=== PATIENT | female | born 1935 | race Caucasian/White ===

== ENCOUNTER → 2016-06-19 | Outpatient (CLI) | payer MEDICARE ==
[~2016-06-19] MED LIST: ACET325T96 PO; ASPI-461 PO; ATOR-26 PO; CARV12.52 PO; CEFD1CAP14 PO; CHOL1000 PO; CIPR-255 PO; COCO1OIL2 PO; CPR500 PO; CRAN1TAB PO; CRANBERRY PO; CRG25 PO; DOXY-300 PO; ERTA1INJ IV; FEBU40TA PO; FURO-85 PO; KFL500 PO; LORA-741 PO; LOTE1GEL OPB; MELA1TAB5 PO; METR-162 PO; MISCCAP80 PO; MRPL PO; MULT-614 PO; NYSP TOP; ONDA4TAB10 PO; PANT40TA2 PO; PLV75 PO; SODI650T8 PO; VANC5CAP PO; [UNRECOGNIZED DRUG - CODE] TOP
[2016-06-19 08:09] LABS: URINE APPEARANCE TURBID (CLEAR); URINE BILIRUBIN NEG (NEG); URINE COLOR YELLOW; URINE EPITHELIAL CELL AUTO >30 /lpf (0-5); URINE NITRITE NEG (NEG); URINE PH 6.5 (4.5-7.5); UROBILINOGEN NEG (NEG); ZZURINE CULT IF INDIC CATH YES
[2016-06-19 08:15] LABS: MANUAL MICROSCOPIC REQUIRED? NO; REVIEW REQ? YES
[2016-06-19 08:40] LABS: URINE PROTIEN/CREAT RATIO 1.3 (0-0.2); URINE TOTAL PROTEIN 88.3 mg/dl (0-11.9)
== END | disposition home or self-care (01) ==
LOC: C.LABSPEC 07:47
PROVIDERS: ATTEND Internal Medicine Nephrology
DX: N30.20 Other chronic cystitis without hematuria (principal); N18.4 Chronic kidney disease, stage 4 (severe); I10 Essential (primary) hypertension; R80.9 Proteinuria, unspecified; E55.9 Vitamin D deficiency, unspecified

== ENCOUNTER → 2016-06-27 | Outpatient (CLI) | payer MEDICARE ==
[~2016-06-27] MED LIST changes: -MRPL PO; -PANT40TA2 PO; +PRT/40 PO
[2016-06-27 15:02] LABS: BLOOD UREA NITROGEN 35 mg/dl (7-18); BUN/CREATININE RATIO 12.2 (10-20); CALCIUM 8.6 mg/dl (8.5-10.1); CARBON DIOXIDE 21 mmol/L (21-32); CHLORIDE 117 mmol/L (98-107); GLUCOSE 121 mg/dl (70-99); HEMATOCRIT 30.7 % (37-47); MEAN CELL VOLUME 98.4 fL (80-100); MEAN CORPUSCULAR HEMOGLOBIN 31.4 pg (25-34); MEAN CORPUSCULAR HGB CONC 31.9 g/dl (32-36); MEAN PLATELET VOLUME 9.4 fL (7.4-10.4); PHOSPHORUS 3.5 mg/dl (2.5-4.9); PLATELET COUNT 194 K/uL (130-400); RED BLOOD COUNT 3.12 M/uL (4.2-5.4); SODIUM 149 mmol/L (136-145); WHITE BLOOD COUNT 7.23 K/uL (4.8-10.8)
[2016-06-27 15:25] LABS: ANISOCYTOSIS PRESENT; BASO % 0.7 %; BASO ABS # 0.05 K/uL (0-0.2); COMPLETE YES; EOS % 2.8 %; IG% 5.5 %; LYMPH % 30.2 %; LYMPH ABS # 2.18 K/uL (1.2-3.4); MONO % 6.9 %; NEUT % 53.9 %
== END | disposition home or self-care (01) ==
LOC: C.LAB1850 13:33
PROVIDERS: ATTEND Internal Medicine Nephrology
DX: N17.9 Acute kidney failure, unspecified (principal)

== ENCOUNTER → 2016-07-11 | Outpatient (CLI) | payer MEDICARE, OTHER ==
[2016-07-11 18:33] LABS: URINE APPEARANCE TURBID (CLEAR); URINE COLOR ORANGE; URINE EPITHELIAL CELL AUTO >30 /lpf (0-5); URINE NITRITE POS (NEG); URINE SPECIFIC GRAVITY 1.007 (1.000-1.030); UROBILINOGEN NEG (NEG); ZZURINE CULT IF INDIC CATH YES
[2016-07-11 18:43] LABS: MANUAL MICROSCOPIC REQUIRED? NO; REVIEW REQ? YES; URINE BILIRUBIN NEG (NEG)
== END | disposition home or self-care (01) ==
LOC: C.LABSPEC 16:19
PROVIDERS: ATTEND Internal Medicine Infectious Disease
DX: N39.0 Urinary tract infection, site not specified (principal)

== ENCOUNTER 2016-07-13 11:26 | Inpatient (IN) | payer MEDICARE, OTHER ==
[~2016-07-13] VITALS: Ht 167.6 cm; Wt 70.5 kg
[~2016-07-13 11:26] MED LIST changes: -CARV12.52 PO; -CEFD1CAP14 PO; -CHOL1000 PO; -COCO1OIL2 PO; -CPR500 PO; -CRAN1TAB PO; -CRANBERRY PO; -ERTA1INJ IV; -FURO-85 PO; -METR-162 PO; -SODI650T8 PO
[2016-07-13 12:53] LABS: BASO % 0.2 %; BASO ABS # 0.01 K/uL (0-0.2); EOS % 1.6 %; HEMATOCRIT 27.7 % (37-47); IG% 1.3 %; LYMPH ABS # 1.34 K/uL (1.2-3.4); MEAN CELL VOLUME 98.2 fL (80-100); MEAN CORPUSCULAR HEMOGLOBIN 31.2 pg (25-34); MEAN CORPUSCULAR HGB CONC 31.8 g/dl (32-36); MEAN PLATELET VOLUME 9.8 fL (7.4-10.4); MONO % 9.4 %; NEUT % 66.5 %; PLATELET COUNT 152 K/uL (130-400); RED BLOOD COUNT 2.82 M/uL (4.2-5.4); WHITE BLOOD COUNT 6.37 K/uL (4.8-10.8)
[2016-07-13] MEDS ORDERED: ERTAPENEM 1 GM ADDVIAL IV ONE (13:00)
[2016-07-13] MEDS ORDERED: CHOL1000 PO (13:05)
[2016-07-13 13:18] LABS: ALKALINE PHOSPHATASE 90 U/L (45-117); ALT/SGPT 16 U/L (12-78); AST/SGOT 17 U/L (15-37); BLOOD UREA NITROGEN 80 mg/dl (7-18); BUN/CREATININE RATIO 13.3 (10-20); CALCIUM 7.9 mg/dl (8.5-10.1); CARBON DIOXIDE 14 mmol/L (21-32); CHLORIDE 115 mmol/L (98-107); GLUCOSE 99 mg/dl (70-99); SODIUM 144 mmol/L (136-145)
[2016-07-13] MEDS ORDERED: SODIUM CHLORIDE 0.9% 1000ML 1,000 ML IV STA (13:32)
[2016-07-13 13:33] LABS: COMPLETE YES
[2016-07-13] MEDS ORDERED: ONDANSETRON INJ 2 MG/ML 2 ML VIAL IV PRN (14:15)
[2016-07-13] MEDS ORDERED: MAGNESIUM HYDROXIDE SUSP 30 ML UDC PO PRN (14:15)
[2016-07-13] MEDS ORDERED: NON-FORMULARY MEDICATION (Probiotic Product (Probiotic) 1 TAB) PO SCH (14:15)
[2016-07-13] MEDS ORDERED: ACETAMINOPHEN 325 MG TAB PO SCH (14:15)
[2016-07-13] MEDS ORDERED: BISACODYL 5 MG TABEC PO PRN (14:15)
--- NOTE | 2016-07-13 14:48 | History and Physical ---
History & Physical Date & Time of Service: Jul 13, 2016 at 14:23 Chief Complaint: UTI Primary Care Physician: Jan Cervantes M.D. History of Present Illness Source: patient Patient is an 81 y/o female, with PMHx of recurrent UTI, CKD IV, HTN, CHF, CAD, and hyperlipidemia, who presented to the ED from referral by [facility] because of progressive bilateral leg weakness and UTI. Urine cultures on growing Klebsiella pneumoniae. Per patient, her only complaint is progressive weakness over the last few days. Patient was admitted late May for similar symptoms of UTI and progressive weakness. History is limited as no family present and patient "is tired of telling everyone the same thing. She is fine." Patient denies any fever, chills, sweats, lightheadedness, dizziness, vision changes, CP, palpitations, edema, SOB, wheezing, cough, abdominal pain, nausea, vomiting, diarrhea, urinary symptoms, melena, numbness/tingling, muscle/ joint pain, anxiety/depression, active bleeding, or new skin discoloration/ changes. Past Medical/Surgical History Medical Problems: 1. Recurrent UTI 2. CKD IV 3. HTN 4. CHF 5. CAD s/p PR in April 2012 6. Hyperlipidemia Surgical Problems: 1. Cholecystectomy Family History Other cardiovascular diseases Social History Smoking Status: Never Smoker Drug Use: none Marital Status: Housing status: lives with family, long term Occupational Status: retired Immunizations History of Influenza Vaccine: Yes Influenza Vaccine Date: Mar 17, 2010 History of Tetanus Vaccine?: No History of Pneumococcal: No Pneumococcal Date: Jun 06, 2011 History of Hepatitis B Vaccine: No Multi-Drug Resistant Organisms History of MDRO: No Allergies Coded Allergies: Amoxicillin (Verified Allergy, Unknown, UNKNOWN REACTION, 07/13/16) PER PCP RECORDS Clavulanic Acid (Verified Allergy, Unknown, UNKNOWN REACTION, 07/13/16) PER PCP RECORDS Penicillins (Verified Allergy, Unknown, UNKNOWN REACTION, 07/13/16) PER PCP RECORDS Sulfa Antibiotics (Verified Allergy, Unknown, BODY SWELLING,NAUSEA AND VOMITNG, 07/13/16) Home Medications Scheduled Aspirin (Aspirin), 81 MG PO QPM Atorvastatin (Lipitor), 80 MG PO QPM Carvedilol (Carvedilol), 25 MG PO BID Cholecalciferol (Vitamin D3), 1 TAB PO DAILY Clopidogrel Bisulfate (Clopidogrel), 75 MG PO QPM Febuxostat (Uloric), 40 MG PO NOON Loteprednol Etabonate (Lotemax), 1 DROP OPB QAM Multiple Vitamins W/ Minerals (Centrum Silver Ultra Wome), 1 TAB PO QAM Nystatin (Nystop), 1 DOSE TOP BID Pantoprazole (Pantoprazole Sodium), 40 MG PO QAM Probiotic Product (Probiotic), 1 TAB PO NOON Scheduled PRN Acetaminophen Tab (Tylenol), 650 MG PO Q4H PRN for Pain or Fever Ketoconazole (Bulk) (Ketoconazole), 1 DOSE TOP QAM PRN for affected area Lorazepam (Ativan), 0.5 MG PO Q6H PRN for Anxiety Ondasetron Odt (Zofran Odt), 4 MG PO Q6H PRN for Nausea Physical Exam Vital Signs Date Time Temp Pulse Resp B/P Pulse Ox O2 Delivery O2 Flow Rate FiO2 07/13/16 14:11 73 07/13/16 13:47 73 22 106/52 96 2.0 07/13/16 11:39 Nasal Cannula 2.0 07/13/16 11:32 72 07/13/16 11:32 36.8 72 20 114/54 98 Room Air 2.0 General Appearance: no apparent distress Head: normocephalic, atraumatic Eyes: normal inspection, PERRL ENT: hearing grossly normal Neck: supple Respiratory/Chest: lungs clear, no respiratory distress, no accessory muscle use Cardiovascular: regular rate, rhythm, normal peripheral pulses Abdomen/GI: normal bowel sounds, non tender, soft Extremities/Musculoskelatal: no calf tenderness, no pedal edema Neurologic/Psych: alert Skin: normal color, warm/dry, no rash Diagnostics Laboratory Results Results Past 24 Hours Test 07/13/16 11:06 Range/Units White Blood Count 6.37 4.8-10.8 K/uL Red Blood Count 2.82 4.2-5.4 M/uL Hemoglobin 8.8 12.0-16.0 g/dL Hematocrit 27.7 37-47 % Mean Corpuscular Volume 98.2 80-100 fL Mean Corpuscular Hemoglobin 31.2 25-34 pg Mean Corpuscular Hemoglobin Concent 31.8 32-36 g/dl Platelet Count 152 130-400 K/uL Mean Platelet Volume 9.8 7.4-10.4 fL Neutrophils (%) (Auto) 66.5 % Lymphocytes (%) (Auto) 21.0 % Monocytes (%) (Auto) 9.4 % Eosinophils (%) (Auto) 1.6 % Basophils (%) (Auto) 0.2 % Neutrophils # (Auto) 4.24 1.4-6.5 K/uL Lymphocytes # (Auto) 1.34 1.2-3.4 K/uL Monocytes # (Auto) 0.60 0.11-0.59 K/uL Eosinophils # (Auto) 0.10 0-0.5 K/uL Basophils # (Auto) 0.01 0-0.2 K/uL RDW Standard Deviation 59.0 36.4-46.3 fL RDW Coefficient of Variation 16.3 11.5-14.5 % Immature Granulocyte % (Auto) 1.3 % Immature Granulocyte # (Auto) 0.08 0.00-0.02 K/uL Red Blood Cell Morphology Unremarkable Sodium Level 144 136-145 mmol/L Potassium Level 5.0 3.5-5.1 mmol/L Chloride Level 115 98-107 mmol/L Carbon Dioxide Level 14 21-32 mmol/L Anion Gap 15.0 3-11 mmol/L Blood Urea Nitrogen 80 7-18 mg/dl Creatinine 6.00 0.60-1.20 mg/dl Est Creatinine Clear Calc Drug Dose 6.6 ml/min Estimated GFR () 6.9 Estimated GFR (Non- 6.0 BUN/Creatinine Ratio 13.3 10-20 Random Glucose 99 70-99 mg/dl Calcium Level 7.9 8.5-10.1 mg/dl Total Bilirubin 0.3 0.2-1 mg/dl Direct Bilirubin < 0.1 0-0.2 mg/dl Aspartate Amino Transf (AST/SGOT) 17 15-37 U/L Alanine Aminotransferase (ALT/SGPT) 16 12-78 U/L Alkaline Phosphatase 90 45-117 U/L Total Protein 6.5 6.4-8.2 gm/dl Albumin 2.3 3.4-5.0 gm/dl Lipase 149 73-393 U/L RUN DATE: 07/13/16 [facility] LAB PAGE 1 RUN TIME: 1030 Specimen Inquiry PATIENT: ELIEL MIR LOC: NICCIMERVAT U # : [id number] AGE/SX: 81/F ROOM: REG : 07/11/[address]: José Luis Griffin MD : [id number] BED: DIS : STATUS: PRE CLI TLOC: SPEC #: [id number] [place]: 07/11/16-1618 STATUS: COMP REQ #: [id number] RECD: 07/11/[address]: José Luis Griffin MD SOURCE: URINE CATH ENTR: 07/11/16-[address]: Jan Cervantes M.D. [facility]: ORDERED: CULTURE UR CATH Procedure Result Verified Site URINE CULTURE Final 07/13/16-1030 Organism 1 KLEBSIELLA PNEUMONIAE COLONY COUNT >100,000 CFU/ml SENS SENSITIVITY TO FOLLOW SENSITIVITY RESULT INDICATES AN ORGANISM WITH AN EXTENDED SPECTRUM BETA LACTAMASE.THIS IS CONSIDERED A MULTIDRUG RESISTANT ORGANISM.PHONED TO BRANDEN PUENTES AND LOW MARTELL() ON 07/13/16 AT 1004 BY Handy Shelton. Results were verbalized back to IRVIN. 1. KLEBSIELLA PNEUMONIAE Target Route Dose RX AB Cost M.I.C. IQ ------ ----- ------ -- ------ -------- - ------ TRIMET/SULFA R >2/38 AMPICILLIN/SUL R >16/8 CEFAZOLIN R >16 CEFOTAXIME R >32 CEFTRIAXONE R >32 CEFEPIME R >16 CEFUROXIME R >16 IMIPENEM S <=1 GENTAMICIN S <=4 TOBRAMYCIN I 8 AMIKACIN S <=16 CIPROFLOXACIN R >2 LEVOFLOXACIN R >4 ERTAPENEM S <=1 NITROFURANTOIN R >64 PIP/TAZO S <=16 S = SENSITIVE I = INTERMEDIATE R = RESISTANT END OF REPORT Impression Assessment and Plan 81 y/o female, with PMHx of recurrent UTI, CKD IV, HTN, CHF, CAD, and hyperlipidemia, who presented to the ED by referral from [facility] because of progressive bilateral leg weakness and UTI. UTI- klebsiella pneumoniae on urine culture 07/11: - Admit med/surg - IV Ertapenem - Consult infectious disease, appreciate recommendations. Patient follows with Dr. Griffin for recurrent UTIs - Follow CBC - Nam to monitor urine output BONNIE on CKD IV with Cr. of 6.00. Baseline ~2.5: - IV NSS @ 75 ml/hr - Consult nephrology, appreciate recommendations. Patient follows with Dr. Corral - Follow PRP CHF/HTN: - ECHO on 06/10/16 with EF of 35-40% - Continue Coreg 25 mg PO BID CAD: - Continue ASA 81 mg PO daily - Continue Plavix 75 mg PO QPM Anemia: - hgb 8.8. baseline around 9.5-10.0 - Continue to follow Hyperlipidemia: - Continue Lipitor 80 mg PO QAM Weakness: - Consult PT/OT GI Prophylaxis: - Pantoprazole 40 mg - Maalox PRN - IV Zofran PRN - Colace and/or Milk of Mag PRN DVT prophylaxis: - CODI and SCDs Code Status: - LEVEL I, FULL Dispo: - Lives at home. Has [facility] care Level of Care Med/Surg Resuscitation Status FULL RESUSCITATION VTE Prophylaxis VTE Risk Assessment Done? Y/N: Yes Risk Level: Moderate Given or contraindicated: T.E.D. Stockings, SCD's
--- NOTE | 2016-07-13 15:34 | EMERGENCY ROOM VISIT NOTE ---
History Report prepared by Harrison: Sj Carrero Under the Supervision of: Dr. Laisha Wren M.D. First contact with patient: 12:21 Chief Complaint: REFERRED BY DOCTOR Stated Complaint: UTI History of Present Illness The patient is an 81 year old female who presents to the Emergency Room as an acute referral from [facility] for a urinary tract infection. As per her , the patient has been becoming progressively weaker in the legs to the point that she cannot stand up, which is a typical UTI symptom for her. The patient has also been eating less and sleeping more than baseline. The patient' s gave her Cipro that was leftover from a previous UTI. The Cipro did not help. The patient's urine cultures obtained two days ago showed growth, which prompted the referral to the ED. The patient's last bowel movement was yesterday. The patient does not have any complaints. Patient denies headache, change in vision, fevers, chest pain, shortness of breath, nausea, vomiting, diarrhea, pain with urination, and melena. Source of History: patient, spouse/significant other Onset: two days ago Position: other (general) Quality: other (ED referral ) Timing: other (acute) Associated Symptoms: + weakness, No SOB, No chest pain, No diarrhea, No fevers, No headache, No melena, No nausea, No urinary symptoms, No vomiting Review of Systems See HPI for pertinent positives & negatives. A total of 10 systems reviewed and were otherwise negative. Past Medical & Surgical Medical Problems: (1) Acute hypernatremia (2) Acute kidney injury (3) Acute on chronic renal failure (4) Acute renal failure superimposed on stage 4 chronic kidney disease (5) Acute urinary tract infection (6) Anemia (7) Benign hypertension (8) Cardiac catheterization (9) CHF (congestive heart failure) (10) CHF (congestive heart failure) (11) Cholecystectomy (12) Chronic kidney disease (13) Coronary artery disease (14) Diabetes (15) Ischemic cardiomyopathy (16) Metabolic acidosis (17) Metabolic acidosis with increased anion gap and reduced excretion of inorganic acids (18) Myocardial infarction (19) Pneumonia (20) 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 (21) Recurrent UTI (22) Secondary hyperparathyroidism of renal origin (23) Sepsis (24) Sepsis due to Klebsiella (25) sepsis recurrent UTI BONNIE on ckd (26) Systolic CHF (27) UTI (urinary tract infection) (28) UTI (urinary tract infection) (29) UTI (urinary tract infection) (30) Weakness Surgical Problems: (1) History of cholecystectomy Family History Other cardiovascular diseases Social History Smoking Status: Never Smoker Alcohol Use: none Drug Use: none Marital Status: Housing Status: lives with significant other Occupation Status: retired Current/Historical Medications Scheduled Aspirin (Aspirin), 81 MG PO QPM Atorvastatin (Lipitor), 80 MG PO QPM Carvedilol (Carvedilol), 25 MG PO BID Cholecalciferol (Vitamin D3), 1 TAB PO DAILY Clopidogrel Bisulfate (Clopidogrel), 75 MG PO QPM Febuxostat (Uloric), 40 MG PO NOON Loteprednol Etabonate (Lotemax), 1 DROP OPB QAM Multiple Vitamins W/ Minerals (Centrum Silver Ultra Wome), 1 TAB PO QAM Nystatin (Nystop), 1 DOSE TOP BID Pantoprazole (Pantoprazole Sodium), 40 MG PO QAM Probiotic Product (Probiotic), 1 TAB PO NOON Scheduled PRN Acetaminophen Tab (Tylenol), 650 MG PO Q4H PRN for Pain or Fever Ketoconazole (Bulk) (Ketoconazole), 1 DOSE TOP QAM PRN for affected area Lorazepam (Ativan), 0.5 MG PO Q6H PRN for Anxiety Ondasetron Odt (Zofran Odt), 4 MG PO Q6H PRN for Nausea Allergies Coded Allergies: Amoxicillin (Verified Allergy, Unknown, UNKNOWN REACTION, 07/13/16) PER PCP RECORDS Clavulanic Acid (Verified Allergy, Unknown, UNKNOWN REACTION, 07/13/16) PER PCP RECORDS Penicillins (Verified Allergy, Unknown, UNKNOWN REACTION, 07/13/16) PER PCP RECORDS Sulfa Antibiotics (Verified Allergy, Unknown, BODY SWELLING,NAUSEA AND VOMITNG, 07/13/16) Physical Exam Vital Signs Date Time Temp Pulse Resp B/P Pulse Ox O2 Delivery O2 Flow Rate FiO2 07/13/16 14:11 73 07/13/16 13:47 73 22 106/52 96 2.0 07/13/16 11:39 Nasal Cannula 2.0 07/13/16 11:32 72 07/13/16 11:32 36.8 72 20 114/54 98 Room Air 2.0 Physical Exam GENERAL: Laying in bed, ill appearing, disheveled. EYE EXAM: normal conjunctiva. OROPHARYNX: no exudate, no erythema, lips, buccal mucosa, and tongue normal and mucous membranes are moist NECK: supple, no nuchal rigidity, no adenopathy, non-tender LUNGS: Clear to auscultation. Normal chest wall mechanics HEART: no murmurs, S1 normal and S2 normal ABDOMEN: abdomen soft, mild tenderness, normo-active bowel sounds, no masses, no rebound or guarding. BACK: Back is symmetrical on inspection and there is no deformity, no midline tenderness, no CVA tenderness. SKIN: no rashes and no bruising UPPER EXTREMITIES: upper extremities are grossly normal. LOWER EXTREMITIES: No pitting edema. NEURO EXAM: Normal sensorium, cranial nerves II-XII grossly intact, normal speech, no gross weakness of arms, no gross weakness of legs. Gross sensation intact. Medical Decision & Procedures Laboratory Results 07/13/16 11:06 Red Blood Count 2.82, Mean Corpuscular Volume 98.2, Mean Corpuscular Hemoglobin 31.2, Mean Corpuscular Hemoglobin Concent 31.8, Mean Platelet Volume 9.8, Neutrophils (%) (Auto) 66.5, Lymphocytes (%) (Auto) 21.0, Monocytes (%) (Auto) 9.4, Eosinophils (%) (Auto) 1.6, Basophils (%) (Auto) 0.2, Neutrophils # (Auto) 4.24, Lymphocytes # (Auto) 1.34, Monocytes # (Auto) 0.60, Eosinophils # (Auto) 0.10, Basophils # (Auto) 0.01 07/13/16 11:06 Test 07/13/16 11:06 White Blood Count 6.37 K/uL (4.8-10.8) Red Blood Count 2.82 M/uL (4.2-5.4) Hemoglobin 8.8 g/dL (12.0-16.0) Hematocrit 27.7 % (37-47) Mean Corpuscular Volume 98.2 fL (80-100) Mean Corpuscular Hemoglobin 31.2 pg (25-34) Mean Corpuscular Hemoglobin Concent 31.8 g/dl (32-36) Platelet Count 152 K/uL (130-400) Mean Platelet Volume 9.8 fL (7.4-10.4) Neutrophils (%) (Auto) 66.5 % Lymphocytes (%) (Auto) 21.0 % Monocytes (%) (Auto) 9.4 % Eosinophils (%) (Auto) 1.6 % Basophils (%) (Auto) 0.2 % Neutrophils # (Auto) 4.24 K/uL (1.4-6.5) Lymphocytes # (Auto) 1.34 K/uL (1.2-3.4) Monocytes # (Auto) 0.60 K/uL (0.11-0.59) Eosinophils # (Auto) 0.10 K/uL (0-0.5) Basophils # (Auto) 0.01 K/uL (0-0.2) RDW Standard Deviation 59.0 fL (36.4-46.3) RDW Coefficient of Variation 16.3 % (11.5-14.5) Immature Granulocyte % (Auto) 1.3 % Immature Granulocyte # (Auto) 0.08 K/uL (0.00-0.02) Red Blood Cell Morphology Unremarkable Anion Gap 15.0 mmol/L (3-11) Est Creatinine Clear Calc Drug Dose 6.6 ml/min Estimated GFR () 6.9 Estimated GFR (Non- 6.0 BUN/Creatinine Ratio 13.3 (10-20) Calcium Level 7.9 mg/dl (8.5-10.1) Total Bilirubin 0.3 mg/dl (0.2-1) Direct Bilirubin < 0.1 mg/dl (0-0.2) Aspartate Amino Transf (AST/SGOT) 17 U/L (15-37) Alanine Aminotransferase (ALT/SGPT) 16 U/L (12-78) Alkaline Phosphatase 90 U/L (45-117) Total Protein 6.5 gm/dl (6.4-8.2) Albumin 2.3 gm/dl (3.4-5.0) Lipase 149 U/L (73-393) Laboratory results per my review. Medications Administered Medications (Trade) Dose Ordered Sig/Helder Route Start Time Stop Time Status Last Admin Dose Admin Ertapenem 1 gm 1 gm ONE ONCE IV 07/13/16 13:00 07/13/16 13:02 DC 07/13/16 13:33 1 GM Sodium Chloride (Nss 1000ml) 1,000 ml @ 999 mls/hr Q1H1M STAT IV 07/13/16 13:32 07/13/16 14:32 DC 07/13/16 14:42 999 MLS/HR ED Course ED COURSE: Vital signs were reviewed and were normal. The patients medical record was reviewed The above diagnostic studies were performed and reviewed. ED treatments and interventions as stated above. 1243: The patient was evaluated in room C4. A complete history and physical examination was performed. 1300: Invanz 1 gm IV. 1332: NSS 1000 ml @ 999 mls/hr. 1332: [facility] The patient will be evaluated. 1335: Upon reevaluation, the patient is stable.I discussed my findings with the patient's and he understands and agrees with the treatment plan. Based on the patients age, coexisting illnesses, exam and lab findings the decision to treat as an inpatient was made. The patient remained stable while under my care. The patient will be evaluated for further management. Medical Decision Differential Diagnosis includes but is not limited to dehydration, stroke, anemia, hypoglycemia, hyponatremia, hypernatremia, urinary tract infection, pneumonia, bronchitis, sepsis, gastroenteritis, additional abdominal pathology, metabolic abnormalities and infections. Patient is an 81-year-old female who presents in the ER for weakness. She was referred in by her primary care doctor following being found to have a Klebsiella UTI. notes that he noticed hematuria 2 days back on which to get a urine culture. Patient is no other complaints at this time. She has been eating and taking less per the . Labs were obtained and show an elevated creatinine at 6 with a normal potassium. Previous creatinines were round 3. Upon review of the urine culture she was given ertapenem as it is pain resistant. Patient family were updated at bedside. She was given a bolus normal saline. She was admitted to internal medicine with a UTI and acute kidney injury. The anemia does appear to be chronic. Consults Time Called: 1325 Consulting Physician: [facility] Returned Call: [phone]: [facility] the [facility] The patient will be evaluated. Impression Primary Impression: Acute kidney injury Additional Impressions: UTI (urinary tract infection) Anemia Scribe Attestation The scribe's documentation has been prepared under my direction and personally reviewed by me in its entirety. I confirm that the note above accurately reflects all work, treatment, procedures, and medical decision making performed by me. Departure Information Dispostion Being Evaluated By Hospitalist Referrals Jan Cervantes M.D. (PCP) Patient Instructions [facility] Problem Qualifiers Additional Impressions: UTI (urinary tract infection) Urinary tract infection type: acute cystitis Hematuria presence: with hematuria Qualified Codes: N30.01 - Acute cystitis with hematuria Anemia Anemia type: other cause Other causes of anemia: other cause, not classified Qualified Codes: D64.89 - Other specified anemias
[2016-07-13 15:50] VITALS: O2SAT 98; Ht 167.6 cm; Wt 70.5 kg
[2016-07-13 16:00] LABS: URINE APPEARANCE TURBID (CLEAR); URINE COLOR ORANGE; URINE EPITHELIAL CELL AUTO >30 /lpf (0-5); URINE NITRITE POS (NEG); URINE PH 5.5 (4.5-7.5); URINE SPECIFIC GRAVITY 1.009 (1.000-1.030); UROBILINOGEN NEG (NEG); ZZURINE CULT IF INDIC CATH YES
[2016-07-13 16:13] LABS: MANUAL MICROSCOPIC REQUIRED? NO; REVIEW REQ? YES
[2016-07-13 16:14] LABS: URINE BILIRUBIN NEG (NEG)
[2016-07-13 16:24] VITALS: BP 114/68; PULSE 83; TEMP 36.9; O2SAT 100
[2016-07-13] MEDS ORDERED: INVANZ PHARMACY CONSULT IN PROGRESS PRN (16:30)
[2016-07-13] MEDS: SODIUM CHLORIDE 0.9% 1000ML 1,000 ML IV SCH (16:52)
--- NOTE | 2016-07-13 17:49 | Medical Consult ---
Consultation Date of Consultation: Jul 13, 2016. Attending Physician: Oniel Naik M.D. Reason for Consultation: Urinary tract infection with Klebsiella History of Present Illness 81-year-old female well known to me from previous infectious disease consultations and outpatient follow-up, with history of multiple recurrent urinary tract infections, usually associated with encephalopathy, often requiring hospitalization and IV antibiotics. Over the last several days, patient developed symptoms of recurrent infection with increasing lethargy and less responsiveness, and was found to have positive urine culture for Klebsiella. Because of difficulty with outpatient therapy, patient being admitted for further management. There has been no report of significant fever. Slight odor in discoloration of urine. Also of note is patient has history of recurrent C difficile colitis, and is on chronic suppressive therapy with vancomycin. Past Medical/Surgical History Medical Problems: (1) Acute on chronic kidney failure Status: Acute (2) Acute renal failure Status: Acute (3) Altered mental status Status: Acute (4) ARF (acute renal failure) Status: Acute (5) CRD (chronic renal disease) Status: Acute (6) Dehydration Status: Acute (7) Dehydration Status: Acute (8) Fever Status: Acute (9) Hyperkalemia Status: Acute (10) PICC (peripherally inserted central catheter) in place Status: Acute (11) Pneumonia Status: Acute (12) Renal failure Status: Acute (13) Renal insufficiency Status: Acute (14) Renal insufficiency Status: Acute (15) Sepsis Status: Acute (16) Sepsis Status: Acute (17) Uremia Status: Acute (18) UTI (urinary tract infection) Status: Acute (19) UTI (urinary tract infection) Status: Acute (20) UTI (urinary tract infection) Status: Acute (21) Weakness Status: Acute (22) Weakness Status: Acute (23) Weakness Status: Acute (24) Weakness Status: Acute (25) Weakness Status: Acute Medical Problems: (1) Acute hypernatremia (2) Acute kidney injury (3) Acute on chronic renal failure (4) Acute renal failure superimposed on stage 4 chronic kidney disease (5) Acute urinary tract infection (6) Anemia (7) Benign hypertension (8) Cardiac catheterization (9) CHF (congestive heart failure) (10) CHF (congestive heart failure) (11) Cholecystectomy (12) Chronic kidney disease (13) Coronary artery disease (14) Diabetes (15) Ischemic cardiomyopathy (16) Metabolic acidosis (17) Metabolic acidosis with increased anion gap and reduced excretion of inorganic acids (18) Myocardial infarction (19) Pneumonia (20) 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 (21) Recurrent UTI (22) Secondary hyperparathyroidism of renal origin (23) Sepsis (24) Sepsis due to Klebsiella (25) sepsis recurrent UTI BONNIE on ckd (26) Systolic CHF (27) UTI (urinary tract infection) (28) UTI (urinary tract infection) (29) UTI (urinary tract infection) (30) Weakness Surgical Problems: (1) History of cholecystectomy Family History Other cardiovascular diseases Social History Smoking Status: Never Smoker Drug Use: none Marital Status: Housing Status: lives with significant other Occupation Status: retired Allergies Coded Allergies: Amoxicillin (Verified Allergy, Unknown, UNKNOWN REACTION, 07/13/16) PER PCP RECORDS Clavulanic Acid (Verified Allergy, Unknown, UNKNOWN REACTION, 07/13/16) PER PCP RECORDS Penicillins (Verified Allergy, Unknown, UNKNOWN REACTION, 07/13/16) PER PCP RECORDS Sulfa Antibiotics (Verified Allergy, Unknown, BODY SWELLING,NAUSEA AND VOMITNG, 07/13/16) Current Inpatient Medications Current Inpatient Medications Medications (Trade) Dose Ordered Sig/Helder Route Start Time Stop Time Status Last Admin Dose Admin Aspirin (Ecotrin Tab) 81 mg QPM PO 07/13/16 21:00 08/12/16 20:59 Atorvastatin Calcium (Lipitor Tab) 80 mg QPM PO 07/13/16 21:00 08/12/16 20:59 Carvedilol (Coreg Tab) 25 mg BID PO 07/13/16 20:00 08/12/16 20:59 Cholecalciferol (Vitamin D Tab) 1,000 inter.unit DAILY PO 07/14/16 08:00 08/13/16 08:59 Clopidogrel Bisulfate (plAVix TAB) 75 mg QPM PO 07/13/16 21:00 08/12/16 20:59 Lorazepam (Ativan Tab) 0.5 mg Q6H PRN PO 07/13/16 14:15 08/12/16 14:14 Multivitamins/ Minerals (Multivitamin W/ Minerals Tab) 1 tab QAM PO 07/14/16 08:00 08/13/16 08:59 Nystatin (Mycostatin Powder) 1 appln BID EXT 07/13/16 20:00 2/26/17 20:59 Ondansetron HCl (Zofran Odt) 4 mg Q6H PRN PO 07/13/16 14:15 08/12/16 14:14 Pantoprazole Sodium (Protonix Tab) 40 mg QAM PO 07/14/16 08:00 08/13/16 08:59 Febuxostat (Uloric) 40 mg DAILY@1200 PO 07/14/16 12:00 08/13/16 11:59 Miscellaneous Information 1 ea 1 ea QS N/A 07/14/16 08:00 08/13/16 07:59 Ertapenem 500 mg/ Sodium Chloride 55 ml @ 110 mls/hr DAILY@1400 IV 07/14/16 14:00 07/23/16 13:59 Sodium Chloride (Nss 1000ml) 1,000 ml @ 75 mls/hr [id number] IV 07/13/16 14:15 08/12/16 14:14 07/13/16 16:52 75 MLS/HR Ondansetron HCl (Zofran Inj) 4 mg Q6H PRN IV 07/13/16 14:15 08/12/16 14:14 Magnesium Hydroxide (Milk Of Magnesia Susp) 30 ml Q6H PRN PO 07/13/16 14:15 08/12/16 14:14 Bisacodyl (Dulcolax Tab) 5 mg DAILY PRN PO 07/13/16 14:15 08/12/16 14:14 Acetaminophen (Tylenol Tab) 650 mg Q4H PRN PO 07/13/16 18:15 08/12/16 18:14 Miscellaneous Information 1 ea UD PRN N/A 07/13/16 16:30 08/12/16 16:29 Loteprednol Etabonate (Lotemax 0.5%) 1 drops QAM OPB 07/14/16 08:00 08/13/16 07:59 Review of Systems Constitutional: + fatigue, + weakness, No fever Eyes: No problem reported ENT: No problem reported Respiratory: No problem reported Cardiovascular: No problem reported Abdomen: No problem reported Musculoskeletal: No problem reported Genitourinary - Female: + dysuria, + urinary frequency, + urinary incontinence Neurologic: + weakness Psychiatric: No problem reported Endocrine: No problem reported Hematologic / Lymphatic: No problem reported Integumentary: No problem reported Allergic / Immunologic: No problem reported Physical Exam Date Time Temp Pulse Resp B/P Pulse Ox O2 Delivery O2 Flow Rate FiO2 07/13/16 16:24 36.9 83 20 114/68 100 Nasal Cannula 2.0 07/13/16 15:50 98 Nasal Cannula 2.0 07/13/16 15:38 85 16 128/63 98 07/13/16 14:11 73 07/13/16 13:47 73 22 106/52 96 2.0 07/13/16 11:39 Nasal Cannula 2.0 07/13/16 11:32 72 07/13/16 11:32 36.8 72 20 114/54 98 Room Air 2.0 General Appearance: WD/WN, no apparent distress Head: normocephalic, atraumatic Eyes: normal inspection, EOMI, sclerae normal ENT: normal ENT inspection, pharynx normal Neck: supple, no adenopathy, thyroid normal, trachea midline Respiratory/Chest: chest non-tender, lungs clear, normal breath sounds, no respiratory distress Cardiovascular: regular rate, rhythm, no gallop, no murmur Abdomen/GI: normal bowel sounds, non tender, soft, no organomegaly Back: normal inspection, no CVA tenderness Extremities/Musculoskelatal: no calf tenderness, pelvis stable Neurologic/Psych: alert, oriented x 3 Skin: normal color, warm/dry, no rash Lymphatic: no adenopathy Laboratory Results RUN DATE: 07/13/16 [facility] LAB PAGE 1 RUN TIME: 1030 Specimen Inquiry PATIENT: ELIEL MIR LOC: [facility] U # : [id number] AGE/SX: 81/F ROOM: REG : 07/11/[address]: José Luis Griffin MD : [id number] BED: DIS : STATUS: PRE CLI TLOC: SPEC #: [id number] [place]: 07/11/16 STATUS: COMP REQ #: [id number] RECD: 07/11/[address]: José Luis Griffin MD SOURCE: URINE CATH ENTR: 07/11/16 [facility] DR: Jan Cervantes M.D. [facility] ORDERED: CULTURE UR CATH Procedure Result Verified Site URINE CULTURE Final 07/13/16-1030 Organism 1 KLEBSIELLA PNEUMONIAE COLONY COUNT >100,000 CFU/ml SENS SENSITIVITY TO FOLLOW SENSITIVITY RESULT INDICATES AN ORGANISM WITH AN EXTENDED SPECTRUM BETA LACTAMASE.THIS IS CONSIDERED A MULTIDRUG RESISTANT ORGANISM.PHONED TO BRANDEN PUENTES AND LOW MARTELL() ON 07/13/16 AT 1004 BY Handy Shelton. Results were verbalized back to IRVIN. 1. KLEBSIELLA PNEUMONIAE Target Route Dose RX AB Cost M.I.C. IQ ------ ----- ------ -- ------ -------- - ------ TRIMET/SULFA R >2/38 AMPICILLIN/SUL R >16/8 CEFAZOLIN R >16 CEFOTAXIME R >32 CEFTRIAXONE R >32 CEFEPIME R >16 CEFUROXIME R >16 IMIPENEM S <=1 GENTAMICIN S <=4 TOBRAMYCIN I 8 AMIKACIN S <=16 CIPROFLOXACIN R >2 LEVOFLOXACIN R >4 ERTAPENEM S <=1 NITROFURANTOIN R >64 PIP/TAZO S <=16 S = SENSITIVE I = INTERMEDIATE R = RESISTANT END OF REPORT Last 24 Hours Test 07/13/16 11:06 07/13/16 15:35 White Blood Count 6.37 K/uL Red Blood Count 2.82 M/uL Hemoglobin 8.8 g/dL Hematocrit 27.7 % Mean Corpuscular Volume 98.2 fL Mean Corpuscular Hemoglobin 31.2 pg Mean Corpuscular Hemoglobin Concent 31.8 g/dl Platelet Count 152 K/uL Mean Platelet Volume 9.8 fL Neutrophils (%) (Auto) 66.5 % Lymphocytes (%) (Auto) 21.0 % Monocytes (%) (Auto) 9.4 % Eosinophils (%) (Auto) 1.6 % Basophils (%) (Auto) 0.2 % Neutrophils # (Auto) 4.24 K/uL Lymphocytes # (Auto) 1.34 K/uL Monocytes # (Auto) 0.60 K/uL Eosinophils # (Auto) 0.10 K/uL Basophils # (Auto) 0.01 K/uL RDW Standard Deviation 59.0 fL RDW Coefficient of Variation 16.3 % Immature Granulocyte % (Auto) 1.3 % Immature Granulocyte # (Auto) 0.08 K/uL Red Blood Cell Morphology Unremarkable Sodium Level 144 mmol/L Potassium Level 5.0 mmol/L Chloride Level 115 mmol/L Carbon Dioxide Level 14 mmol/L Anion Gap 15.0 mmol/L Blood Urea Nitrogen 80 mg/dl Creatinine 6.00 mg/dl Est Creatinine Clear Calc Drug Dose 6.6 ml/min Estimated GFR () 6.9 Estimated GFR (Non- 6.0 BUN/Creatinine Ratio 13.3 Random Glucose 99 mg/dl Calcium Level 7.9 mg/dl Total Bilirubin 0.3 mg/dl Direct Bilirubin < 0.1 mg/dl Aspartate Amino Transf (AST/SGOT) 17 U/L Alanine Aminotransferase (ALT/SGPT) 16 U/L Alkaline Phosphatase 90 U/L Total Protein 6.5 gm/dl Albumin 2.3 gm/dl Lipase 149 U/L Urine Color ORANGE Urine Appearance TURBID Urine pH 5.5 Urine Specific [place] 1.009 Urine Protein 3+ Urine Glucose (UA) NEG Urine Ketones NEG Urine Occult Blood 3+ Urine Nitrite POS Urine Bilirubin NEG Urine Urobilinogen NEG Urine Leukocyte Esterase LARGE Urine WBC (Auto) >30 /hpf Urine RBC (Auto) >30 /hpf Urine Hyaline Casts (Auto) 0 /lpf Urine Epithelial Cells (Auto) >30 /lpf Urine Bacteria (Auto) NEG Urine Pathogenic Casts /lpf Urine Yeast (Auto) Assessment & Plan patient with acute urinary tract infection with Klebsiella with acute kidney injury as well as mental status changes, agree with treatment with ertapenem, with likely course in the range of 7-10 days. Will follow clinical response, would obtain blood cultures to ensure no bacteremia. Will follow.
[2016-07-13] MEDS ORDERED: ACETAMINOPHEN 325 MG TAB PO PRN (18:15)
[2016-07-13] MEDS: NYSTATIN POWDER 15GM BTL EXT SCH (22:00)
[2016-07-13] MEDS: CARVEDILOL 25 MG TAB PO SCH (22:00)
[2016-07-13] MEDS: ASPIRIN 81 MG ECTAB PO SCH (22:01)
[2016-07-13] MEDS: CLOPIDOGREL BISULFATE 75 MG TAB PO SCH (22:01)
[2016-07-13] MEDS: ATORVASTATIN 40 MG TAB PO SCH (22:01)
[2016-07-13 22:07] VITALS: BP 123/56; PULSE 91
[2016-07-14] VITALS (7 sets, daily range): BP systolic 100–120; BP diastolic 47–55; PULSE 72–88; TEMP 36.4–37; O2SAT 97–100
[2016-07-14] MEDS: SODIUM CHLORIDE 0.9% 1000ML 1,000 ML IV SCH (03:43)
[2016-07-14 08:14] LABS: MEAN CELL VOLUME 98.9 fL (80-100); MEAN CORPUSCULAR HEMOGLOBIN 31.2 pg (25-34); MEAN CORPUSCULAR HGB CONC 31.5 g/dl (32-36); MEAN PLATELET VOLUME 9.3 fL (7.4-10.4); PLATELET COUNT 137 K/uL (130-400); RED BLOOD COUNT 2.63 M/uL (4.2-5.4); WHITE BLOOD COUNT 6.14 K/uL (4.8-10.8)
[2016-07-14] MEDS: NYSTATIN POWDER 15GM BTL EXT SCH ×2 (08:43→21:23)
[2016-07-14] MEDS: CARVEDILOL 25 MG TAB PO SCH ×2 (08:44→21:23)
[2016-07-14] MEDS: PANTOprazole SOD 40 MG TAB PO SCH (08:44)
[2016-07-14] MEDS: CHOLECALCIFEROL 1000 INTER.UNIT TAB PO SCH (08:46)
[2016-07-14] MEDS: CEROVITE ADV FORMULA TAB PO SCH (08:46)
[2016-07-14] MEDS: LOTEPREDNOL ETABONATE 0.5% OPB SCH (08:47)
[2016-07-14 08:56] LABS: BUN/CREATININE RATIO 13.4 (10-20); CALCIUM 7.6 mg/dl (8.5-10.1); CREATININE 5.5 mg/dl (0.60-1.20)
--- NOTE | 2016-07-14 12:12 | Nephrology Consultation ---
Nephrology Consultation Date & Providers Date of Consultation: Jul 14, 2016. Primary Care Provider: Jan Cervantes M.D. Referring Provider: Reason for Consultation Evaluation of acute on chronic kidney injury, dehydration, recurrent UTI History of Present Illness Mrs. Chase is an 81-year-old white female who is seen at the request of Dr. Dugan for evaluation of acute on chronic kidney injury and dehydration. Patient was seen & evaluated in her hospital room this morning. Medical records in the hospital EMR were reviewed this morning and are summarized as follows: 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 She has an AICD in place. She has CKD stage V (end stage renal disease) w/ baseline creatinine 3.0 (EGFR 13 cc/min). Mrs. Chase has urinary and fecal incontinence. She wears Tranquility briefs. She suffers from interstitial cystitis and recurrent UTI. This has resulted in need for chronic antibiotic therapy which has been complicated by clostridium difficile colitis and recurrent diarrhea. In 07/02 the patient underwent cystoscopy. Mrs. Chase was found to have severe bladder inflammation resulting in bilateral ureteral obstruction and BONNIE. She subsequently underwent bilateral ureteral stent placement. She has been having these changed out on a regular basis by urology. She is scheduled for her next ureteral stent change 08/03. We have discussed patient's advanced renal impairment. She does not wish to pursue dialysis. She desires only conservative medical management. Yesterday the patient was anorectic. She became progressively weak. Her had to lift her out of bed. She had a urine culture obtained by the visiting nurse which was positive for klebsiella. She was subsequently admitted for IV hydration and antibiotic therapy. Past Medical/Surgical History Medical: # CKD stage IV (advanced impairment). 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 difficile colitis # Chronic respiratory failure requiring ATC 02 # Obesity # General debilitated condition Surgical: # Bilateral corneal transplant # Cholecystectomy # Appendectomy # AICD # Bilateral ureteral stent 07/02 Allergies Coded Allergies: Amoxicillin (Verified Allergy, Unknown, UNKNOWN REACTION, 07/13/16) PER PCP RECORDS Clavulanic Acid (Verified Allergy, Unknown, UNKNOWN REACTION, 07/13/16) PER PCP RECORDS Penicillins (Verified Allergy, Unknown, UNKNOWN REACTION, 07/13/16) PER PCP RECORDS Sulfa Antibiotics (Verified Allergy, Unknown, BODY SWELLING,NAUSEA AND VOMITNG, 07/13/16) Inpatient Medications Current Inpatient Medications Medications (Trade) Dose Ordered Sig/Helder Route Start Time Stop Time Status Last Admin Dose Admin Aspirin (Ecotrin Tab) 81 mg QPM PO 07/13/16 21:00 08/12/16 20:59 07/13/16 22:01 81 MG Atorvastatin Calcium (Lipitor Tab) 80 mg QPM PO 07/13/16 21:00 08/12/16 20:59 07/13/16 22:01 80 MG Carvedilol (Coreg Tab) 25 mg BID PO 07/13/16 20:00 08/12/16 20:59 07/13/16 22:00 25 MG Cholecalciferol (Vitamin D Tab) 1,000 inter.unit DAILY PO 07/14/16 08:00 08/13/16 08:59 07/14/16 08:46 1,000 INTER.UNIT Clopidogrel Bisulfate (plAVix TAB) 75 mg QPM PO 07/13/16 21:00 08/12/16 20:59 07/13/16 22:01 75 MG Lorazepam (Ativan Tab) 0.5 mg Q6H PRN PO 07/13/16 14:15 08/12/16 14:14 Multivitamins/ Minerals (Multivitamin W/ Minerals Tab) 1 tab QAM PO 07/14/16 08:00 08/13/16 08:59 07/14/16 08:46 1 TAB Nystatin (Mycostatin Powder) 1 appln BID EXT 07/13/16 20:00 08/12/16 20:59 07/14/16 08:43 1 APPLN Ondansetron HCl (Zofran Odt) 4 mg Q6H PRN PO 07/13/16 14:15 08/12/16 14:14 Pantoprazole Sodium (Protonix Tab) 40 mg QAM PO 07/14/16 08:00 08/13/16 08:59 07/14/16 08:44 40 MG Febuxostat (Uloric) 40 mg DAILY@1200 PO 07/14/16 12:00 08/13/16 11:59 Miscellaneous Information 1 ea 1 ea QS N/A 07/14/16 08:00 08/13/16 07:59 Ertapenem 500 mg/ Sodium Chloride 55 ml @ 110 mls/hr DAILY@1400 IV 07/14/16 14:00 07/23/16 13:59 Sodium Chloride (Nss 1000ml) 1,000 ml @ 75 mls/hr [id number] IV 07/13/16 14:15 08/12/16 14:14 07/14/16 03:43 75 MLS/HR Ondansetron HCl (Zofran Inj) 4 mg Q6H PRN IV 07/13/16 14:15 08/12/16 14:14 Magnesium Hydroxide (Milk Of Magnesia Susp) 30 ml Q6H PRN PO 07/13/16 14:15 08/12/16 14:14 Bisacodyl (Dulcolax Tab) 5 mg DAILY PRN PO 07/13/16 14:15 08/12/16 14:14 Acetaminophen (Tylenol Tab) 650 mg Q4H PRN PO 07/13/16 18:15 08/12/16 18:14 Miscellaneous Information 1 ea UD PRN N/A 07/13/16 16:30 08/12/16 16:29 Loteprednol Etabonate (Lotemax 0.5%) 1 drops QAM OPB 07/14/16 08:00 08/13/16 07:59 07/14/16 08:47 1 DROPS Family History Other cardiovascular diseases Negative for CKD / ESRD Social History Smoking Status: Never Smoker Drug Use: none Marital Status: Housing Status: lives with family, correction 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 . Lives in [place], [place] w/ her . Three children. One son developed primary sclerosing cholangitis and required a liver transplant. 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 Her continues to work as a [employer] software engineer/district court reporter. No history of tobacco or alcohol use. Review of Systems Constitutional: No fever Respiratory: No shortness of breath Cardiovascular: No chest pain Abdomen: No nausea, No vomiting Genitourinary - Female: No dysuria Integumentary: No rash A complete review of systems was performed. Pertinent positives are noted above. All other systems are negative. Physical Exam Date Time Temp Pulse Resp B/P Pulse Ox O2 Delivery O2 Flow Rate FiO2 07/14/16 08:42 36.4 73 18 100/47 100 Nasal Cannula 2.0 07/14/16 08:00 100 Nasal Cannula 2.0 07/14/16 00:23 37.0 88 18 115/52 97 Nasal Cannula 2.0 07/14/16 00:19 98 Nasal Cannula 2.0 07/13/16 22:07 91 123/56 07/13/16 16:24 36.9 83 20 114/68 100 Nasal Cannula 2.0 07/13/16 15:50 98 Nasal Cannula 2.0 07/13/16 15:38 85 16 128/63 98 07/13/16 14:11 73 07/13/16 13:47 73 22 106/52 96 2.0 General Appearance: + pertinent finding (frail appearing) Head: atraumatic Eyes: PERRL, EOMI Neck: no adenopathy Respiratory/Chest: lungs clear, no respiratory distress Cardiovascular: regular rate, rhythm Abdomen/GI: normal bowel sounds, non tender, soft Extremities/Musculoskelatal: no calf tenderness, no pedal edema Neurologic/Psych: alert Skin: warm/dry Laboratory Results Last 24 Hours Test 07/13/16 15:35 07/14/16 07:55 Urine Color ORANGE Urine Appearance TURBID Urine pH 5.5 Urine Specific [place] 1.009 Urine Protein 3+ Urine Glucose (UA) NEG Urine Ketones NEG Urine Occult Blood 3+ Urine Nitrite POS Urine Bilirubin NEG Urine Urobilinogen NEG Urine Leukocyte Esterase LARGE Urine WBC (Auto) >30 /hpf Urine RBC (Auto) >30 /hpf Urine Hyaline Casts (Auto) 0 /lpf Urine Epithelial Cells (Auto) >30 /lpf Urine Bacteria (Auto) NEG Urine Pathogenic Casts /lpf Urine Yeast (Auto) White Blood Count 6.14 K/uL Red Blood Count 2.63 M/uL Hemoglobin 8.2 g/dL Hematocrit 26.0 % Mean Corpuscular Volume 98.9 fL Mean Corpuscular Hemoglobin 31.2 pg Mean Corpuscular Hemoglobin Concent 31.5 g/dl RDW Standard Deviation 59.0 fL RDW Coefficient of Variation 16.2 % Platelet Count 137 K/uL Mean Platelet Volume 9.3 fL Sodium Level 148 mmol/L Potassium Level 5.0 mmol/L Chloride Level 121 mmol/L Carbon Dioxide Level 13 mmol/L Anion Gap 14.0 mmol/L Blood Urea Nitrogen 74 mg/dl Creatinine 5.50 mg/dl Est Creatinine Clear Calc Drug Dose 7.3 ml/min Estimated GFR () 7.7 Estimated GFR (Non- 6.6 BUN/Creatinine Ratio 13.4 Random Glucose 105 mg/dl Calcium Level 7.6 mg/dl Impression (1) Dehydration (2) Acute kidney injury (3) Chronic kidney disease (4) 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 (5) Ischemic cardiomyopathy (6) Generalized weakness (7) Diabetes Patient admitted to the hospital for evaluation of management of dehydration and acute on chronic kidney injury. She has chronic bladder inflammation obstructing her ureters. She has had bilateral ureteral stents placed and changed out since 07/02. The patient has suffered from recurrent Klebsiella UTI. PMH - CKD stage V (ESRD - Baseline creatinine 3.0 w/ EGFR 13 cc/minute. Patient has indicated that she does not want HD if her kidneys fail. 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 difficile colitis, ICM w/ LVEF 25%, moderate MR, pulmonary HTN and moderate TR, AICD placement, hypercholesterolemia, chronic respiratory failure requiring ATC 02, obesity (BMI 32), general debilitated condition Recommendations ACUTE KIDNEY INJURY: -- Provide IV hydration -- Monitor serial PRP CHRONIC KIDNEY DISEASE: -- Baseline creatinine 3.0 w/ EGFR 13 cc/min METABOLIC ACIDOSIS: -- Will add NaHCO3 to IVF ANEMIA: -- Mild, asymptomatic anemia. Monitor. No acute indication for JOURDAN or transfusion at this time ID: -- Patient is on Ertapenem as per ID sales support consultant
[2016-07-14] MEDS: FEBUXOSTAT 40 MG TAB PO SCH (12:20)
--- NOTE | 2016-07-14 13:29 | Progress Note ---
Subjective Date of Service: Jul 14, 2016. Subjective pt is pleasantly confused reading a book, when asked what book she didnt know. at bedside and updated Problem List Medical Problems: (1) Acute on chronic kidney failure Status: Acute (2) Acute renal failure Status: Acute (3) Altered mental status Status: Acute (4) ARF (acute renal failure) Status: Acute (5) CRD (chronic renal disease) Status: Acute (6) Dehydration Status: Acute (7) Dehydration Status: Acute (8) Fever Status: Acute (9) Hyperkalemia Status: Acute (10) PICC (peripherally inserted central catheter) in place Status: Acute (11) Pneumonia Status: Acute (12) Renal failure Status: Acute (13) Renal insufficiency Status: Acute (14) Renal insufficiency Status: Acute (15) Sepsis Status: Acute (16) Sepsis Status: Acute (17) Uremia Status: Acute (18) UTI (urinary tract infection) Status: Acute (19) UTI (urinary tract infection) Status: Acute (20) UTI (urinary tract infection) Status: Acute (21) Weakness Status: Acute (22) Weakness Status: Acute (23) Weakness Status: Acute (24) Weakness Status: Acute (25) Weakness Status: Acute Review of Systems Constitutional: + fatigue, + weakness, No chills, No fever Respiratory: No cough, No dyspnea on exertion, No shortness of breath Cardiac: No chest pain, No edema, No orthopnea Abdomen: No diarrhea, No nausea, No pain, No vomiting Female : + dysuria, + urinary frequency Psychiatric: No anhedonism, No depression symptoms Objective Vital Signs Date Time Temp Pulse Resp B/P Pulse Ox O2 Delivery O2 Flow Rate FiO2 07/14/16 00:23 37.0 88 18 115/52 97 Nasal Cannula 2.0 07/14/16 00:19 98 Nasal Cannula 2.0 07/13/16 22:07 91 123/56 07/13/16 16:24 36.9 83 20 114/68 100 Nasal Cannula 2.0 07/13/16 15:50 98 Nasal Cannula 2.0 07/13/16 15:38 85 16 128/63 98 07/13/16 14:11 73 07/13/16 13:47 73 22 106/52 96 2.0 07/13/16 11:39 Nasal Cannula 2.0 07/13/16 11:32 72 1/27/17 11:32 36.8 72 20 114/54 98 Room Air 2.0 Physical Exam General Appearance: WD/WN, + mild distress Neck: supple, no JVD Respiratory/Chest: chest non-tender, lungs clear, + accessory muscle use Cardiovascular: regular rate, rhythm, no murmur Abdomen: normal bowel sounds, non tender, soft Extremities: no pedal edema, no calf tenderness Neurologic/Psychiatric: alert, + disoriented Laboratory Results Last 24 Hours Test 07/13/16 11:06 07/13/16 15:35 07/14/16 07:55 White Blood Count 6.37 K/uL Red Blood Count 2.82 M/uL Hemoglobin 8.8 g/dL Hematocrit 27.7 % Mean Corpuscular Volume 98.2 fL Mean Corpuscular Hemoglobin 31.2 pg Mean Corpuscular Hemoglobin Concent 31.8 g/dl Platelet Count 152 K/uL Mean Platelet Volume 9.8 fL Neutrophils (%) (Auto) 66.5 % Lymphocytes (%) (Auto) 21.0 % Monocytes (%) (Auto) 9.4 % Eosinophils (%) (Auto) 1.6 % Basophils (%) (Auto) 0.2 % Neutrophils # (Auto) 4.24 K/uL Lymphocytes # (Auto) 1.34 K/uL Monocytes # (Auto) 0.60 K/uL Eosinophils # (Auto) 0.10 K/uL Basophils # (Auto) 0.01 K/uL RDW Standard Deviation 59.0 fL RDW Coefficient of Variation 16.3 % Immature Granulocyte % (Auto) 1.3 % Immature Granulocyte # (Auto) 0.08 K/uL Red Blood Cell Morphology Unremarkable Sodium Level 144 mmol/L Potassium Level 5.0 mmol/L Chloride Level 115 mmol/L Carbon Dioxide Level 14 mmol/L Anion Gap 15.0 mmol/L Blood Urea Nitrogen 80 mg/dl Creatinine 6.00 mg/dl Est Creatinine Clear Calc Drug Dose 6.6 ml/min Estimated GFR () 6.9 Estimated GFR (Non- 6.0 BUN/Creatinine Ratio 13.3 Random Glucose 99 mg/dl Calcium Level 7.9 mg/dl Total Bilirubin 0.3 mg/dl Direct Bilirubin < 0.1 mg/dl Aspartate Amino Transf (AST/SGOT) 17 U/L Alanine Aminotransferase (ALT/SGPT) 16 U/L Alkaline Phosphatase 90 U/L Total Protein 6.5 gm/dl Albumin 2.3 gm/dl Lipase 149 U/L Urine Color ORANGE Urine Appearance TURBID Urine pH 5.5 Urine Specific Holly 1.009 Urine Protein 3+ Urine Glucose (UA) NEG Urine Ketones NEG Urine Occult Blood 3+ Urine Nitrite POS Urine Bilirubin NEG Urine Urobilinogen NEG Urine Leukocyte Esterase LARGE Urine WBC (Auto) >30 /hpf Urine RBC (Auto) >30 /hpf Urine Hyaline Casts (Auto) 0 /lpf Urine Epithelial Cells (Auto) >30 /lpf Urine Bacteria (Auto) NEG Urine Pathogenic Casts /lpf Urine Yeast (Auto) Assessment and Plan 81 y/o female, with PMHx of recurrent UTI presents with metabolic encephalopathy from Klebsiella UTI poa, acute on chronic renal failure, and Gap/ non Gap acidosis UTI- poa klebsiella pneumoniae on urine culture 07/11: -Id has seen and agrees on IV Ertapenem end date /-6 BONNIE on CKD IV with Cr. of 6.00. Baseline ~2.5: concerning that bicarb is low - IV NSS @ 75 ml/hr Chronic systolic HF/HTN: - ECHO on 06/10/16 with EF of 35-40%, will be cautious with IVF Coreg 25 mg PO BID Anemia:- hgb has slight drop with hydration says did get procrit on one occasion Weakness: - Consult PT/OT DVT prophylaxis: - CODI and SCDs Code Status: - LEVEL I, FULL
[2016-07-14] MEDS: SODIUM BICARBONATE 8.4% INJ 50 MEQ in SODIUM CHLORIDE 0.45% 1000ML 1,000 ML IV SCH (13:51)
[2016-07-14] MEDS: ERTAPENEM IV 500 MG in SODIUM CHLORIDE 0.9% 50ML 50 ML IV SCH (13:52)
[2016-07-14] MEDS: ASPIRIN 81 MG ECTAB PO SCH (21:22)
[2016-07-14] MEDS: ATORVASTATIN 40 MG TAB PO SCH (21:22)
[2016-07-14] MEDS: CLOPIDOGREL BISULFATE 75 MG TAB PO SCH (21:22)
[2016-07-14] MEDS: ONDANSETRON 4MG OD TAB PO PRN (21:39)
[2016-07-15 00:16] VITALS: O2SAT 100
[2016-07-15] MEDS: SODIUM BICARBONATE 8.4% INJ 50 MEQ in SODIUM CHLORIDE 0.45% 1000ML 1,000 ML IV SCH (03:18)
[2016-07-15 07:51] LABS: HEMATOCRIT 25.7 % (37-47); MEAN CELL VOLUME 98.5 fL (80-100); MEAN CORPUSCULAR HGB CONC 31.5 g/dl (32-36); MEAN PLATELET VOLUME 8.8 fL (7.4-10.4); PLATELET COUNT 129 K/uL (130-400); RED BLOOD COUNT 2.61 M/uL (4.2-5.4); WHITE BLOOD COUNT 5.12 K/uL (4.8-10.8)
[2016-07-15 08:00] VITALS: O2SAT 100
[2016-07-15] MEDS: CARVEDILOL 25 MG TAB PO SCH ×2 (08:00→20:42)
[2016-07-15 08:10] VITALS: BP 100/42; PULSE 70; TEMP 36.6; O2SAT 100
[2016-07-15] MEDS: CHOLECALCIFEROL 1000 INTER.UNIT TAB PO SCH (08:13)
[2016-07-15] MEDS: NYSTATIN POWDER 15GM BTL EXT SCH ×2 (08:13→20:44)
[2016-07-15] MEDS: LOTEPREDNOL ETABONATE 0.5% OPB SCH (08:13)
[2016-07-15] MEDS: PANTOprazole SOD 40 MG TAB PO SCH (08:14)
[2016-07-15] MEDS: CEROVITE ADV FORMULA TAB PO SCH (08:14)
[2016-07-15 08:37] LABS: BUN/CREATININE RATIO 13.7 (10-20); CALCIUM 7.9 mg/dl (8.5-10.1); CREATININE 4.9 mg/dl (0.60-1.20); POTASSIUM 4.8 mmol/L (3.5-5.1)
--- NOTE | 2016-07-15 10:57 | Nephrology Progress Note ---
Nephrology Progress Note Date of Service Jul 15, 2016. Chief Complaint Evaluation of acute on chronic kidney injury, dehydration, recurrent UTI Subjective Mrs. Chase was seen & examined in her hospital room this morning. She was admitted w/ recurrent Klebsiella UTI and weakness. The patient voices no new medical concerns this am. She remains on broad spectrum antibiotics and IV hydration. Review of Systems Constitutional: No fever Cardiovascular: No chest pain Respiratory: No dyspnea at rest Abdomen: No nausea, No pain Extremities: No leg edema A complete review of systems was performed. Pertinent positives are noted above. All other systems are negative. Vital Signs Last 8 Hrs Date Time Temp Pulse Resp B/P Pulse Ox O2 Delivery O2 Flow Rate FiO2 07/15/16 08:10 36.6 70 18 100/42 100 Nasal Cannula 2.0 07/15/16 08:00 100 Nasal Cannula 2.0 I & O 24-Hour Column 07/15/16 07:59 Intake Total 2826 ml Output Total 1150 ml Balance 1676 ml Last Recorded Weight Weight (Kilograms): 70.500 Physical Exam General Appearance: no apparent distress Head: atraumatic Eyes: PERRL Neck: no adenopathy Respiratory/Chest: lungs clear Cardiovascular: regular rate, rhythm Abdomen/GI: non tender, soft Genitourinary - Female: + pertinent finding (henriquez catheter draining dark yellow urine) Extremities/Musculoskelatal: no pedal edema Neurologic/Psych: alert Family History Other cardiovascular diseases Negative for CKD / ESRD Social History Smoking Status: Never smoker Drug Use: none Marital Status: Housing Status: lives with family, [employer] 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 . Lives in [place], [place] w/ her . Three children. One son developed primary sclerosing cholangitis and required a liver transplant. 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 Her continues to work as a rec therapist/motorcycle designer. No history of tobacco or alcohol use. Laboratory Results Past 24 Hours 07/15/16 07:29 07/15/16 07:29 Test 07/15/16 07:29 Red Blood Count 2.61 M/uL (4.2-5.4) Mean Corpuscular Volume 98.5 fL (80-100) Mean Corpuscular Hemoglobin 31.0 pg (25-34) Mean Corpuscular Hemoglobin Concent 31.5 g/dl (32-36) RDW Standard Deviation 58.1 fL (36.4-46.3) RDW Coefficient of Variation 16.2 % (11.5-14.5) Mean Platelet Volume 8.8 fL (7.4-10.4) Anion Gap 13.0 mmol/L (3-11) Est Creatinine Clear Calc Drug Dose 8.1 ml/min Estimated GFR () 8.8 Estimated GFR (Non- 7.6 BUN/Creatinine Ratio 13.7 (10-20) Calcium Level 7.9 mg/dl (8.5-10.1) Iron Level 23 mcg/dl (35-150) Total Iron Binding Capacity 93 mcg/dl (250-450) Vitamin B12 Level 676 pg/mL (211-911) Allergies Coded Allergies: Amoxicillin (Verified Allergy, Unknown, UNKNOWN REACTION, 07/13/16) PER PCP RECORDS Clavulanic Acid (Verified Allergy, Unknown, UNKNOWN REACTION, 07/13/16) PER PCP RECORDS Penicillins (Verified Allergy, Unknown, UNKNOWN REACTION, 07/13/16) PER PCP RECORDS Sulfa Antibiotics (Verified Allergy, Unknown, BODY SWELLING,NAUSEA AND VOMITNG, 07/13/16) Medications Current Inpatient Medications Medications (Trade) Dose Ordered Sig/Helder Route Start Time Stop Time Status Last Admin Dose Admin Aspirin (Ecotrin Tab) 81 mg QPM PO 07/13/16 21:00 08/12/16 20:59 07/14/16 21:22 81 MG Atorvastatin Calcium (Lipitor Tab) 80 mg QPM PO 07/13/16 21:00 08/12/16 20:59 07/14/16 21:22 80 MG Carvedilol (Coreg Tab) 25 mg BID PO 07/13/16 20:00 08/12/16 20:59 07/14/16 21:23 25 MG Cholecalciferol (Vitamin D Tab) 1,000 inter.unit DAILY PO 07/14/16 08:00 08/13/16 08:59 07/15/16 08:13 1,000 INTER.UNIT Clopidogrel Bisulfate (plAVix TAB) 75 mg QPM PO 07/13/16 21:00 08/12/16 20:59 07/14/16 21:22 75 MG Lorazepam (Ativan Tab) 0.5 mg Q6H PRN PO 07/13/16 14:15 08/12/16 14:14 Multivitamins/ Minerals (Multivitamin W/ Minerals Tab) 1 tab QAM PO 07/14/16 08:00 08/13/16 08:59 07/15/16 08:14 1 TAB Nystatin (Mycostatin Powder) 1 appln BID EXT 07/13/16 20:00 08/12/16 20:59 07/15/16 08:13 1 APPLN Ondansetron HCl (Zofran Odt) 4 mg Q6H PRN PO 07/13/16 14:15 08/12/16 14:14 07/14/16 21:39 4 MG Pantoprazole Sodium (Protonix Tab) 40 mg QAM PO 07/14/16 08:00 08/13/16 08:59 07/15/16 08:14 40 MG Febuxostat (Uloric) 40 mg DAILY@1200 PO 07/14/16 12:00 08/13/16 11:59 07/14/16 12:20 40 MG Miscellaneous Information 1 ea 1 ea QS N/A 07/14/16 08:00 08/13/16 07:59 Ertapenem/Sodium Chloride (Invanz Iv/Nss 50ml) 55 ml @ 110 mls/hr DAILY@1400 IV 07/14/16 14:00 07/23/16 13:59 07/14/16 13:52 110 MLS/HR Ondansetron HCl (Zofran Inj) 4 mg Q6H PRN IV 07/13/16 14:15 08/12/16 14:14 Magnesium Hydroxide (Milk Of Magnesia Susp) 30 ml Q6H PRN PO 07/13/16 14:15 08/12/16 14:14 Bisacodyl (Dulcolax Tab) 5 mg DAILY PRN PO 07/13/16 14:15 08/12/16 14:14 Acetaminophen (Tylenol Tab) 650 mg Q4H PRN PO 07/13/16 18:15 08/12/16 18:14 Miscellaneous Information 1 ea UD PRN N/A 07/13/16 16:30 08/12/16 16:29 Loteprednol Etabonate 1 drops 1 drops QAM OPB 07/14/16 08:00 08/13/16 07:59 07/15/16 08:13 1 DROPS Sodium Bicarbonate 50 meq/Sodium Chloride 1,050 ml @ 75 mls/hr Q14H IV 07/14/16 13:00 08/13/16 12:59 07/15/16 03:18 75 MLS/HR Iron Sucrose/ Sodium Chloride (Venofer Inj/Nss 100ml) 105 ml @ 420 mls/hr TODAY IV 07/15/16 10:30 07/15/16 10:44 UNV Impression (1) Dehydration (2) Acute kidney injury (3) Chronic kidney disease (4) 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 (5) Ischemic cardiomyopathy (6) Generalized weakness (7) Diabetes Patient admitted to the hospital for evaluation of management of dehydration and acute on chronic kidney injury. She has chronic bladder inflammation obstructing her ureters. She has had bilateral ureteral stents placed and changed out since 07/02. The patient has suffered from recurrent Klebsiella UTI. PMH - CKD stage V (ESRD - Baseline creatinine 3.0 w/ EGFR 13 cc/minute. Patient has indicated that she does not want HD if her kidneys fail. 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 difficile colitis, ICM w/ LVEF 25%, moderate MR, pulmonary HTN and moderate TR, AICD placement, hypercholesterolemia, chronic respiratory failure requiring ATC 02, obesity (BMI 32), general debilitated condition Recommendations ACUTE KIDNEY INJURY: -- Creatinine is trending downward ( Cr 6.0 --> 4.9 today) -- Continue gentle IV hydration -- Monitor serial PRP CHRONIC KIDNEY DISEASE: -- Baseline creatinine 3.0 w/ EGFR 13 cc/min METABOLIC ACIDOSIS: -- NaHCO3 has been added to IVF ANEMIA: -- Mild, asymptomatic anemia. Monitor. No acute indication for JOURDAN or transfusion at this time ID: -- Patient is on Ertapenem as per ID building consultant
--- NOTE | 2016-07-15 11:11 | Progress Note ---
Subjective Date of Service: Jul 15, 2016. Subjective this pt is pleasantly confused no focal complaints, is at bedside and all questions answered Problem List Medical Problems: (1) Acute on chronic kidney failure Status: Acute (2) Acute renal failure Status: Acute (3) Altered mental status Status: Acute (4) ARF (acute renal failure) Status: Acute (5) CRD (chronic renal disease) Status: Acute (6) Dehydration Status: Acute (7) Dehydration Status: Acute (8) Fever Status: Acute (9) Hyperkalemia Status: Acute (10) PICC (peripherally inserted central catheter) in place Status: Acute (11) Pneumonia Status: Acute (12) Renal failure Status: Acute (13) Renal insufficiency Status: Acute (14) Renal insufficiency Status: Acute (15) Sepsis Status: Acute (16) Sepsis Status: Acute (17) Uremia Status: Acute (18) UTI (urinary tract infection) Status: Acute (19) UTI (urinary tract infection) Status: Acute (20) UTI (urinary tract infection) Status: Acute (21) Weakness Status: Acute (22) Weakness Status: Acute (23) Weakness Status: Acute (24) Weakness Status: Acute (25) Weakness Status: Acute Review of Systems Constitutional: + fatigue, + weakness, No chills, No fever Respiratory: + cough, No dyspnea on exertion, No shortness of breath, No sputum Cardiac: + edema, No chest pain Abdomen: No diarrhea, No nausea, No pain, No vomiting Female : + hematuria, No dysuria, No urinary frequency Objective Vital Signs Date Time Temp Pulse Resp B/P Pulse Ox O2 Delivery O2 Flow Rate FiO2 07/15/16 00:16 100 Nasal Cannula 2.0 07/14/16 21:45 80 120/55 07/14/16 15:53 36.6 72 18 113/53 100 Nasal Cannula 2.0 07/14/16 15:45 100 Nasal Cannula 2.0 07/14/16 08:42 36.4 73 18 100/47 100 Nasal Cannula 2.0 Physical Exam General Appearance: WD/WN, + mild distress Neck: supple, no JVD Respiratory/Chest: chest non-tender, + decreased breath sounds, + accessory muscle use Cardiovascular: regular rate, rhythm, no murmur Abdomen: normal bowel sounds, soft Extremities: no pedal edema, no calf tenderness Neurologic/Psychiatric: alert, oriented x 3 Laboratory Results Last 24 Hours Test 07/15/16 07:29 White Blood Count 5.12 K/uL Red Blood Count 2.61 M/uL Hemoglobin 8.1 g/dL Hematocrit 25.7 % Mean Corpuscular Volume 98.5 fL Mean Corpuscular Hemoglobin 31.0 pg Mean Corpuscular Hemoglobin Concent 31.5 g/dl RDW Standard Deviation 58.1 fL RDW Coefficient of Variation 16.2 % Platelet Count 129 K/uL Mean Platelet Volume 8.8 fL Assessment and Plan 81 y/o female, with PMHx of recurrent UTI presents with metabolic encephalopathy from Klebsiella UTI poa, acute on chronic renal failure, and Gap/ non Gap acidosis all parameters as slowly improving UTI- poa klebsiella pneumoniae on urine culture 07/11: -Id has seen and agrees on IV Ertapenem end date 2/3-6 BONNIE on CKD IV with Cr. of 6.00. Baseline ~2.5: Chronic systolic HF/HTN: - ECHO on 06/10/16 with EF of 35-40%, will be cautious with IVF Coreg 25 mg PO BID Anemia:- hgb has slight drop with hydration says did get procrit on one occasion, iron is low but tibc also but will give one dose of venofer DVT prophylaxis: - CODI and SCDs Code Status: - LEVEL I, FULL
[2016-07-15] MEDS: FEBUXOSTAT 40 MG TAB PO SCH (12:31)
[2016-07-15] MEDS ORDERED: IRON SUCROSE INJ 100 MG in SODIUM CHLORIDE 0.9% 100ML 100 ML IV SCH (13:00)
[2016-07-15] MEDS: ERTAPENEM IV 500 MG in SODIUM CHLORIDE 0.9% 50ML 50 ML IV SCH (13:14)
[2016-07-15] MEDS: SODIUM BICARBONATE 8.4% INJ 100 MEQ in DEXTROSE 5% 1000ML 1,000 ML IV SCH (13:40)
[2016-07-15 15:47] VITALS: BP 121/65; PULSE 75; TEMP 36.5; O2SAT 100
[2016-07-15] MEDS: ATORVASTATIN 40 MG TAB PO SCH (20:41)
[2016-07-15] MEDS: CLOPIDOGREL BISULFATE 75 MG TAB PO SCH (20:41)
[2016-07-15] MEDS: ASPIRIN 81 MG ECTAB PO SCH (20:41)
[2016-07-15 20:48] VITALS: BP 130/69; PULSE 78; TEMP 36.7; O2SAT 98
[2016-07-16] VITALS: O2SAT 100
[2016-07-16] MEDS: SODIUM BICARBONATE 8.4% INJ 100 MEQ in DEXTROSE 5% 1000ML 1,000 ML IV SCH ×2 (03:28→18:25)
[2016-07-16 06:43] LABS: HEMATOCRIT 25.7 % (37-47); MEAN CELL VOLUME 95.5 fL (80-100); MEAN CORPUSCULAR HEMOGLOBIN 30.9 pg (25-34); MEAN CORPUSCULAR HGB CONC 32.3 g/dl (32-36); MEAN PLATELET VOLUME 9.1 fL (7.4-10.4); PLATELET COUNT 143 K/uL (130-400); RED BLOOD COUNT 2.69 M/uL (4.2-5.4); WHITE BLOOD COUNT 6.04 K/uL (4.8-10.8)
[2016-07-16 07:12] LABS: BUN/CREATININE RATIO 13.1 (10-20); CALCIUM 7.9 mg/dl (8.5-10.1); POTASSIUM 3.8 mmol/L (3.5-5.1)
[2016-07-16 07:58] VITALS: BP 110/66; PULSE 72; TEMP 36.7; O2SAT 99
[2016-07-16] MEDS ORDERED: EPOETIN ALFA 20,000 UNITS/ML VIAL IV SCH (09:30)
[2016-07-16] MEDS: NYSTATIN POWDER 15GM BTL EXT SCH ×2 (09:37→20:28)
[2016-07-16] MEDS: CEROVITE ADV FORMULA TAB PO SCH (09:38)
[2016-07-16] MEDS: CARVEDILOL 25 MG TAB PO SCH ×2 (09:38→20:28)
[2016-07-16] MEDS: PANTOprazole SOD 40 MG TAB PO SCH (09:38)
[2016-07-16] MEDS: CHOLECALCIFEROL 1000 INTER.UNIT TAB PO SCH (09:38)
[2016-07-16] MEDS: LOTEPREDNOL ETABONATE 0.5% OPB SCH (10:44)
[2016-07-16] MEDS: FEBUXOSTAT 40 MG TAB PO SCH (11:29)
--- NOTE | 2016-07-16 12:22 | Nephrology Progress Note ---
Nephrology Progress Note Date of Service Jul 16, 2016. Chief Complaint Follow-up for acute kidney injury, anemia, metabolic acidosis and advanced chronic kidney disease. Vince Mackey was seen and examined in her room this morning. She denies any symptoms. Appetite poor but denies any nausea or abdominal discomfort. Has been having decent urine output. Renal function started to improve, creatinine was 4.0 this morning. Review of Systems A complete review of systems was performed. Pertinent positives are noted above. All other systems are negative. Vital Signs Last 8 Hrs Date Time Temp Pulse Resp B/P Pulse Ox O2 Delivery O2 Flow Rate FiO2 07/16/16 07:58 36.7 72 18 110/66 99 Nasal Cannula 2.0 I & O 24-Hour Column 07/16/16 07:59 Intake Total 1999 ml Output Total 1275 ml Balance 724 ml Last Recorded Weight Weight (Kilograms): 70.500 Physical Exam GENERAL: Elderly female, AAA x 3, pleasant, healthy-appearing, not in any distress. NECK: Supple, no JVD. RESPIRATORY: Normal breathing efforts, no accessory muscle use, clear to auscultation bilaterally, no wheezes or rales. CARDIOVASCULAR: S1, S2 normal, rate rhythm regular. EXTREMITY: No lower extremity edema NEURO: speech fluent. PSYCHIATRY: Normal mood and judgment Family History Other cardiovascular diseases Negative for CKD / ESRD Social History Smoking Status: Never smoker Drug Use: none Marital Status: Housing Status: lives with family, senior care 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 . Lives in [place], [place] w/ her . Three children. One son developed primary sclerosing cholangitis and required a liver transplant. 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 Her continues to work as a care director rn/general assignment reporter. No history of tobacco or alcohol use. Laboratory Results Past 24 Hours 07/16/16 06:30 07/16/16 06:30 Test 07/16/16 06:30 Red Blood Count 2.69 M/uL (4.2-5.4) Mean Corpuscular Volume 95.5 fL (80-100) Mean Corpuscular Hemoglobin 30.9 pg (25-34) Mean Corpuscular Hemoglobin Concent 32.3 g/dl (32-36) RDW Standard Deviation 55.7 fL (36.4-46.3) RDW Coefficient of Variation 15.9 % (11.5-14.5) Mean Platelet Volume 9.1 fL (7.4-10.4) Anion Gap 12.0 mmol/L (3-11) Est Creatinine Clear Calc Drug Dose 10.0 ml/min Estimated GFR () 11.3 Estimated GFR (Non- 9.7 BUN/Creatinine Ratio 13.1 (10-20) Calcium Level 7.9 mg/dl (8.5-10.1) Allergies Coded Allergies: Amoxicillin (Verified Allergy, Unknown, UNKNOWN REACTION, 07/13/16) PER PCP RECORDS Clavulanic Acid (Verified Allergy, Unknown, UNKNOWN REACTION, 07/13/16) PER PCP RECORDS Penicillins (Verified Allergy, Unknown, UNKNOWN REACTION, 07/13/16) PER PCP RECORDS Sulfa Antibiotics (Verified Allergy, Unknown, BODY SWELLING,NAUSEA AND VOMITNG, 07/13/16) Medications Current Inpatient Medications Medications (Trade) Dose Ordered Sig/Helder Route Start Time Stop Time Status Last Admin Dose Admin Aspirin (Ecotrin Tab) 81 mg QPM PO 07/13/16 21:00 08/12/16 20:59 07/15/16 20:41 81 MG Atorvastatin Calcium (Lipitor Tab) 80 mg QPM PO 07/13/16 21:00 08/12/16 20:59 07/15/16 20:41 80 MG Carvedilol (Coreg Tab) 25 mg BID PO 07/13/16 20:00 08/12/16 20:59 07/16/16 09:38 25 MG Cholecalciferol (Vitamin D Tab) 1,000 inter.unit DAILY PO 07/14/16 08:00 08/13/16 08:59 07/16/16 09:38 1,000 INTER.UNIT Clopidogrel Bisulfate (plAVix TAB) 75 mg QPM PO 07/13/16 21:00 08/12/16 20:59 07/15/16 20:41 75 MG Lorazepam (Ativan Tab) 0.5 mg Q6H PRN PO 07/13/16 14:15 08/12/16 14:14 Multivitamins/ Minerals (Multivitamin W/ Minerals Tab) 1 tab QAM PO 07/14/16 08:00 08/13/16 08:59 07/16/16 09:38 1 TAB Nystatin (Mycostatin Powder) 1 appln BID EXT 07/13/16 20:00 08/12/16 20:59 07/16/16 09:37 1 APPLN Ondansetron HCl (Zofran Odt) 4 mg Q6H PRN PO 07/13/16 14:15 08/12/16 14:14 07/14/16 21:39 4 MG Pantoprazole Sodium (Protonix Tab) 40 mg QAM PO 07/14/16 08:00 08/13/16 08:59 07/16/16 09:38 40 MG Febuxostat (Uloric) 40 mg DAILY@1200 PO 07/14/16 12:00 08/13/16 11:59 07/15/16 12:31 40 MG Miscellaneous Information 1 ea 1 ea QS N/A 07/14/16 08:00 08/13/16 07:59 Ertapenem/Sodium Chloride (Invanz Iv/Nss 50ml) 55 ml @ 110 mls/hr DAILY@1400 IV 07/14/16 14:00 07/23/16 13:59 07/15/16 13:14 110 MLS/HR Ondansetron HCl (Zofran Inj) 4 mg Q6H PRN IV 07/13/16 14:15 08/12/16 14:14 Magnesium Hydroxide (Milk Of Magnesia Susp) 30 ml Q6H PRN PO 07/13/16 14:15 08/12/16 14:14 Bisacodyl (Dulcolax Tab) 5 mg DAILY PRN PO 07/13/16 14:15 08/12/16 14:14 Acetaminophen (Tylenol Tab) 650 mg Q4H PRN PO 07/13/16 18:15 08/12/16 18:14 Miscellaneous Information 1 ea UD PRN N/A 07/13/16 16:30 08/12/16 16:29 Loteprednol Etabonate 1 drops 1 drops QAM OPB 07/14/16 08:00 08/13/16 07:59 07/15/16 08:13 1 DROPS Sodium Bicarbonate/ Dextrose (Sodium Bicarbonate 8.4% Inj/D5W 1000ml) 1,100 ml @ 75 mls/hr [id number] IV 07/15/16 13:00 08/14/16 12:59 07/16/16 03:28 75 MLS/HR Epoetin Buck (Procrit Inj) 20,000 units 0930 IV 07/16/16 09:30 07/16/16 14:00 Sodium Bicarbonate (Sodium Bicarbonate Tab) 650 mg BID PO 07/16/16 20:00 08/15/16 19:59 Impression (1) Acute kidney injury (2) Chronic kidney disease (3) 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 (4) Ischemic cardiomyopathy (5) Generalized weakness (6) Diabetes (7) Anemia Patient admitted to the hospital for evaluation of management of dehydration and acute on chronic kidney injury. She has chronic bladder inflammation obstructing her ureters. She has had bilateral ureteral stents placed and changed out since 07/02. The patient has suffered from recurrent Klebsiella UTI. PMH - CKD stage V (ESRD - Baseline creatinine 3.0 w/ EGFR 13 cc/minute. Patient has indicated that she does not want HD if her kidneys fail. 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 difficile colitis, ICM w/ LVEF 25%, moderate MR, pulmonary HTN and moderate TR, AICD placement, hypercholesterolemia, chronic respiratory failure requiring ATC 02, obesity (BMI 32), general debilitated condition Recommendations ACUTE KIDNEY INJURY: -- Creatinine continues to trend downward ( Cr 6.0 --> 4.0 today) -- would Continue gentle IV hydration as volume status stable and no sign off volume overload. -- Monitor serial PRP CHRONIC KIDNEY DISEASE: -- Baseline creatinine 3.0 w/ EGFR 13 cc/min METABOLIC ACIDOSIS: -- continue on NaHCO3 with IV fluid and start on oral NaBicarb ANEMIA: -- Mild, asymptomatic anemia, stable. Monitor. Had adequate iron store. --start on JOURDAN [id number] unit x 1 dose. ID: -- Patient is on Ertapenem as per ID beauty sales consultant
[2016-07-16] MEDS: ERTAPENEM IV 500 MG in SODIUM CHLORIDE 0.9% 50ML 50 ML IV SCH (14:31)
--- NOTE | 2016-07-16 14:31 | Infectious Disease Progress Nt ---
Progress Note Date of Service Jul 16, 2016. Subjective Pt evaluation today including: conversation w/ patient, conversation w/ family , physical exam, chart review, lab review, review of studies, conversation w/ consultant internship, review of inpatient medication list More alert and conversant this morning. Remains afebrile. Renal function improving. No other new complaints. All Other Systems: Reviewed and Negative Medications Current Inpatient Medications Medications (Trade) Dose Ordered Sig/Helder Route Start Time Stop Time Status Last Admin Dose Admin Aspirin (Ecotrin Tab) 81 mg QPM PO 07/13/16 21:00 08/12/16 20:59 07/15/16 20:41 81 MG Atorvastatin Calcium (Lipitor Tab) 80 mg QPM PO 07/13/16 21:00 08/12/16 20:59 07/15/16 20:41 80 MG Carvedilol (Coreg Tab) 25 mg BID PO 07/13/16 20:00 08/12/16 20:59 07/16/16 09:38 25 MG Cholecalciferol (Vitamin D Tab) 1,000 inter.unit DAILY PO 07/14/16 08:00 08/13/16 08:59 07/16/16 09:38 1,000 INTER.UNIT Clopidogrel Bisulfate (plAVix TAB) 75 mg QPM PO 07/13/16 21:00 08/12/16 20:59 07/15/16 20:41 75 MG Lorazepam (Ativan Tab) 0.5 mg Q6H PRN PO 07/13/16 14:15 08/12/16 14:14 Multivitamins/ Minerals (Multivitamin W/ Minerals Tab) 1 tab QAM PO 07/14/16 08:00 08/13/16 08:59 07/16/16 09:38 1 TAB Nystatin (Mycostatin Powder) 1 appln BID EXT 07/13/16 20:00 08/12/16 20:59 07/16/16 09:37 1 APPLN Ondansetron HCl (Zofran Odt) 4 mg Q6H PRN PO 07/13/16 14:15 08/12/16 14:14 07/14/16 21:39 4 MG Pantoprazole Sodium (Protonix Tab) 40 mg QAM PO 07/14/16 08:00 08/13/16 08:59 07/16/16 09:38 40 MG Febuxostat (Uloric) 40 mg DAILY@1200 PO 07/14/16 12:00 08/13/16 11:59 07/16/16 11:29 40 MG Miscellaneous Information 1 ea 1 ea QS N/A 07/14/16 08:00 08/13/16 07:59 Ertapenem/Sodium Chloride (Invanz Iv/Nss 50ml) 55 ml @ 110 mls/hr DAILY@1400 IV 07/14/16 14:00 07/23/16 13:59 07/15/16 13:14 110 MLS/HR Ondansetron HCl (Zofran Inj) 4 mg Q6H PRN IV 07/13/16 14:15 08/12/16 14:14 Magnesium Hydroxide (Milk Of Magnesia Susp) 30 ml Q6H PRN PO 07/13/16 14:15 08/12/16 14:14 Bisacodyl (Dulcolax Tab) 5 mg DAILY PRN PO 07/13/16 14:15 08/12/16 14:14 Acetaminophen (Tylenol Tab) 650 mg Q4H PRN PO 07/13/16 18:15 08/12/16 18:14 Miscellaneous Information 1 ea UD PRN N/A 07/13/16 16:30 08/12/16 16:29 Loteprednol Etabonate 1 drops 1 drops QAM OPB 07/14/16 08:00 08/13/16 07:59 07/16/16 10:44 1 DROPS Sodium Bicarbonate/ Dextrose (Sodium Bicarbonate 8.4% Inj/D5W 1000ml) 1,100 ml @ 75 mls/hr [id number] IV 07/15/16 13:00 08/14/16 12:59 07/16/16 03:28 75 MLS/HR Epoetin Buck (Procrit Inj) 20,000 units 0930 IV 07/16/16 09:30 07/16/16 14:00 07/16/16 11:29 20,000 UNITS Sodium Bicarbonate (Sodium Bicarbonate Tab) 650 mg BID PO 07/16/16 20:00 08/15/16 19:59 Objective Vital Signs Date Time Temp Pulse Resp B/P Pulse Ox O2 Delivery O2 Flow Rate FiO2 07/16/16 09:30 Nasal Cannula 2.0 07/16/16 07:58 36.7 72 18 110/66 99 Nasal Cannula 2.0 07/16/16 00:00 100 Nasal Cannula 2.0 07/15/16 20:48 36.7 78 18 130/69 98 Nasal Cannula 2.0 07/15/16 16:00 Nasal Cannula 2.0 07/15/16 15:47 36.5 75 18 121/65 100 Nasal Cannula 2.0 Physical Exam General Appearance: WD/WN, no apparent distress Eyes: normal inspection, sclerae normal ENT: normal ENT inspection, pharynx normal Neck: supple, no adenopathy, trachea midline Respiratory/Chest: chest non-tender, lungs clear, normal breath sounds, no respiratory distress Cardiovascular: regular rate, rhythm, no gallop, no murmur Abdomen: normal bowel sounds, non tender, soft, no organomegaly Extremities: non-tender, no calf tenderness Neurologic/Psychiatric: alert, oriented x 3 Skin: normal color, no rash Lymphatic: no adenopathy Laboratory Results RUN DATE: 07/16/16 [facility] LAB PAGE 1 RUN TIME: 710 Specimen Inquiry PATIENT: ELIEL MIR LOC: [id number] U # : [id number] AGE/SX: 81/F ROOM: [facility] REG : 07/13/[address]: Oniel Naik M. : 1935 BED: 1 DIS : STATUS: ADM IN TLOC: SPEC #: [id number] [place]: 07/14/16 STATUS: RES REQ #: [id number] RECD: 07/14/161005 [facility] DR: Oniel Naik M.D. SOURCE: BLOOD ENTR: 07/14/16 [facility] DR: Trav Cohen D.O. [facility] José Luis Griffin MD, Stephen M., M.D. Solic, John, M.D. Thomas, Peter W., D.O. Yingling, Christopher T. M.D. ORDERED: BLOOD CULTURE COMMENTS: Comments to Radiation Protection Engineer if not already drawn this admission Procedure Result Verified Site BLD CULT Preliminary 07/16/16 NO GROWTH TO DATE. Last 24 Hours Test 07/16/16 06:30 White Blood Count 6.04 K/uL Red Blood Count 2.69 M/uL Hemoglobin 8.3 g/dL Hematocrit 25.7 % Mean Corpuscular Volume 95.5 fL Mean Corpuscular Hemoglobin 30.9 pg Mean Corpuscular Hemoglobin Concent 32.3 g/dl RDW Standard Deviation 55.7 fL RDW Coefficient of Variation 15.9 % Platelet Count 143 K/uL Mean Platelet Volume 9.1 fL Sodium Level 146 mmol/L Potassium Level 3.8 mmol/L Chloride Level 115 mmol/L Carbon Dioxide Level 19 mmol/L Anion Gap 12.0 mmol/L Blood Urea Nitrogen 52 mg/dl Creatinine 4.00 mg/dl Est Creatinine Clear Calc Drug Dose 10.0 ml/min Estimated GFR () 11.3 Estimated GFR (Non- 9.7 BUN/Creatinine Ratio 13.1 Random Glucose 104 mg/dl Calcium Level 7.9 mg/dl Assessment and Plan patient with acute urinary tract infection with Klebsiella with acute kidney injury as well as mental status changes, appears to be improving with ertapenem. Would recommend 10 day course given multiple recurrences. We will follow.
[2016-07-16 16:13] VITALS: BP 133/61; PULSE 73; TEMP 36.6; O2SAT 100
[2016-07-16 20:27] VITALS: BP 137/63; PULSE 77
[2016-07-16] MEDS: SODIUM BICARBONATE 650 MG TAB PO SCH (20:28)
[2016-07-16] MEDS: ATORVASTATIN 40 MG TAB PO SCH (20:29)
[2016-07-16] MEDS: CLOPIDOGREL BISULFATE 75 MG TAB PO SCH (20:29)
[2016-07-16] MEDS: ASPIRIN 81 MG ECTAB PO SCH (20:29)
--- NOTE | 2016-07-16 20:48 | Progress Note ---
Subjective Date of Service: Jul 16, 2016. Subjective Pt evaluation today including: conversation w/ patient, conversation w/ family ( at bedside), physical exam, chart review, lab review, review of inpatient medication list Pain: denies chest pain, abd pain PO Intake: improving per Voiding: henriquez catheter in place NO issues overnight. Feeling better. A little more strength today and appetite slowly improving. hopes she can return home after d/c. Problem List Medical Problems: (1) Acute on chronic kidney failure Status: Acute (2) Acute renal failure Status: Acute (3) Altered mental status Status: Acute (4) ARF (acute renal failure) Status: Acute (5) CRD (chronic renal disease) Status: Acute (6) Dehydration Status: Acute (7) Dehydration Status: Acute (8) Fever Status: Acute (9) Hyperkalemia Status: Acute (10) PICC (peripherally inserted central catheter) in place Status: Acute (11) Pneumonia Status: Acute (12) Renal failure Status: Acute (13) Renal insufficiency Status: Acute (14) Renal insufficiency Status: Acute (15) Sepsis Status: Acute (16) Sepsis Status: Acute (17) Uremia Status: Acute (18) UTI (urinary tract infection) Status: Acute (19) UTI (urinary tract infection) Status: Acute (20) UTI (urinary tract infection) Status: Acute (21) Weakness Status: Acute (22) Weakness Status: Acute (23) Weakness Status: Acute (24) Weakness Status: Acute (25) Weakness Status: Acute Review of Systems Constitutional: No fever Respiratory: No shortness of breath Cardiac: No chest pain, No orthopnea Abdomen: No diarrhea, No pain Objective Vital Signs Date Time Temp Pulse Resp B/P Pulse Ox O2 Delivery O2 Flow Rate FiO2 07/16/16 20:27 77 137/63 07/16/16 16:45 Nasal Cannula 2.0 07/16/16 16:13 36.6 73 22 133/61 100 Nasal Cannula 2.0 07/16/16 09:30 Nasal Cannula 2.0 07/16/16 07:58 36.7 72 18 110/66 99 Nasal Cannula 2.0 07/16/16 00:00 100 Nasal Cannula 2.0 07/15/16 20:48 36.7 78 18 130/69 98 Nasal Cannula 2.0 Physical Exam General Appearance: no apparent distress, + pertinent finding (looks tired/ sick but nontoxic) ENT: pharynx normal Neck: no JVD Respiratory/Chest: lungs clear, no respiratory distress, no accessory muscle use Cardiovascular: regular rate, rhythm, no gallop, no murmur Abdomen: normal bowel sounds, non tender, soft, no organomegaly Extremities: no pedal edema Neurologic/Psychiatric: alert Laboratory Results Last 24 Hours Test 07/16/16 06:30 White Blood Count 6.04 K/uL Red Blood Count 2.69 M/uL Hemoglobin 8.3 g/dL Hematocrit 25.7 % Mean Corpuscular Volume 95.5 fL Mean Corpuscular Hemoglobin 30.9 pg Mean Corpuscular Hemoglobin Concent 32.3 g/dl RDW Standard Deviation 55.7 fL RDW Coefficient of Variation 15.9 % Platelet Count 143 K/uL Mean Platelet Volume 9.1 fL Sodium Level 146 mmol/L Potassium Level 3.8 mmol/L Chloride Level 115 mmol/L Carbon Dioxide Level 19 mmol/L Anion Gap 12.0 mmol/L Blood Urea Nitrogen 52 mg/dl Creatinine 4.00 mg/dl Est Creatinine Clear Calc Drug Dose 10.0 ml/min Estimated GFR () 11.3 Estimated GFR (Non- 9.7 BUN/Creatinine Ratio 13.1 Random Glucose 104 mg/dl Calcium Level 7.9 mg/dl Assessment and Plan 81yo female with: 1. MDR klebsiella UTI - day # 4/10 of ertapenem. Improving. Appreciate ID consult & recommendations. 2. acute kidney injury in setting of CKD stage 5 - BONNIE improving with fluids. Nephrology consult appreciated. Baseline Cr about 3. 3. chronic systolic/diastolic CHF - compensated. Continue beta petra. 4. chronic respiratory failure on home O2 - stable, on baseline home O2. 5. 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 Reeves. Due for exchange of stents soon. 6. pulmonary HTN - cause of #4 above. 7. DVT proph - add heparin BID. 8. chronic anemia - 2nd to CKD stage 5 - H/H stable. Follow with cbc every 2- 3 days. 9. hypernatremia - resolved. 2nd to dehydration. 10. metabolic acidosis - 2nd to acute kidney injury - improved with NaHCO3. 11. CAD with h/o MD - cont BB, aspirin, plavix, statin. PT, OT updated Continued [facility] stay due to: voiding difficulties, ambulation difficulties, multiple IV medications needed, other (acute kidney injury )
[2016-07-16 22:37] LABS: INR 1.2 (0.9-1.1); PARTIAL THROMBOPLASTIN RATIO 1.2; PROTHROMBIN TIME (PATIENT) 12.7 SECONDS (9.0-12.0)
[2016-07-17 00:07] VITALS: BP 111/50; PULSE 74; TEMP 36.7; O2SAT 100
[2016-07-17] MEDS: HEPARIN SOD 5000 UNIT/0.5 ML CARP SQ SCH ×2 (05:51→18:00)
[2016-07-17 07:08] VITALS: BP 139/60; PULSE 74; TEMP 36.5; O2SAT 100
[2016-07-17 07:40] LABS: BUN/CREATININE RATIO 12.9 (10-20); CALCIUM 7.9 mg/dl (8.5-10.1); CREATININE 3.3 mg/dl (0.60-1.20); POTASSIUM 3.7 mmol/L (3.5-5.1)
[2016-07-17] MEDS: NYSTATIN POWDER 15GM BTL EXT SCH ×2 (08:02→21:30)
[2016-07-17] MEDS: LOTEPREDNOL ETABONATE 0.5% OPB SCH (08:03)
[2016-07-17] MEDS: SODIUM BICARBONATE 650 MG TAB PO SCH (08:04)
[2016-07-17] MEDS: CARVEDILOL 25 MG TAB PO SCH ×2 (08:04→21:40)
[2016-07-17] MEDS: CEROVITE ADV FORMULA TAB PO SCH (08:04)
[2016-07-17] MEDS: PANTOprazole SOD 40 MG TAB PO SCH (08:04)
[2016-07-17] MEDS: CHOLECALCIFEROL 1000 INTER.UNIT TAB PO SCH (08:05)
[2016-07-17] MEDS: SODIUM BICARBONATE 8.4% INJ 100 MEQ in DEXTROSE 5% 1000ML 1,000 ML IV SCH (08:20)
--- NOTE | 2016-07-17 10:56 | Infectious Disease Progress Nt ---
Progress Note Date of Service Jul 17, 2016. Subjective Pt evaluation today including: conversation w/ patient, conversation w/ family , physical exam, chart review, lab review, review of studies, conversation w/ independent consultant, review of inpatient medication list Patient appears to be slowly improving. Remains afebrile. White count remains normal. Creatinine down to 3.3. continues to tolerate ertapenem. Oral intake slightly better. All Other Systems: Reviewed and Negative Medications Current Inpatient Medications Medications (Trade) Dose Ordered Sig/Helder Route Start Time Stop Time Status Last Admin Dose Admin Aspirin (Ecotrin Tab) 81 mg QPM PO 07/13/16 21:00 08/12/16 20:59 07/16/16 20:29 81 MG Atorvastatin Calcium (Lipitor Tab) 80 mg QPM PO 07/13/16 21:00 08/12/16 20:59 07/16/16 20:29 80 MG Carvedilol (Coreg Tab) 25 mg BID PO 07/13/16 20:00 08/12/16 20:59 07/17/16 08:04 25 MG Cholecalciferol (Vitamin D Tab) 1,000 inter.unit DAILY PO 07/14/16 08:00 08/13/16 08:59 07/17/16 08:05 1,000 INTER.UNIT Clopidogrel Bisulfate (plAVix TAB) 75 mg QPM PO 07/13/16 21:00 08/12/16 20:59 07/16/16 20:29 75 MG Lorazepam (Ativan Tab) 0.5 mg Q6H PRN PO 07/13/16 14:15 08/12/16 14:14 Multivitamins/ Minerals (Multivitamin W/ Minerals Tab) 1 tab QAM PO 07/14/16 08:00 08/13/16 08:59 07/17/16 08:04 1 TAB Nystatin (Mycostatin Powder) 1 appln BID EXT 07/13/16 20:00 08/12/16 20:59 07/17/16 08:02 1 APPLN Ondansetron HCl (Zofran Odt) 4 mg Q6H PRN PO 07/13/16 14:15 08/12/16 14:14 07/14/16 21:39 4 MG Pantoprazole Sodium (Protonix Tab) 40 mg QAM PO 07/14/16 08:00 08/13/16 08:59 07/17/16 08:04 40 MG Febuxostat (Uloric) 40 mg DAILY@1200 PO 07/14/16 12:00 08/13/16 11:59 07/16/16 11:29 40 MG Miscellaneous Information 1 ea 1 ea QS N/A 07/14/16 08:00 08/13/16 07:59 Ertapenem/Sodium Chloride (Invanz Iv/Nss 50ml) 55 ml @ 110 mls/hr DAILY@1400 IV 07/14/16 14:00 07/23/16 13:59 07/16/16 14:31 110 MLS/HR Ondansetron HCl (Zofran Inj) 4 mg Q6H PRN IV 07/13/16 14:15 08/12/16 14:14 Magnesium Hydroxide (Milk Of Magnesia Susp) 30 ml Q6H PRN PO 07/13/16 14:15 08/12/16 14:14 Bisacodyl (Dulcolax Tab) 5 mg DAILY PRN PO 07/13/16 14:15 08/12/16 14:14 Acetaminophen (Tylenol Tab) 650 mg Q4H PRN PO 07/13/16 18:15 08/12/16 18:14 Miscellaneous Information 1 ea UD PRN N/A 07/13/16 16:30 08/12/16 16:29 Loteprednol Etabonate (Lotemax 0.5%) 1 drops QAM OPB 07/14/16 08:00 08/13/16 07:59 07/17/16 08:03 1 DROPS Heparin Sodium (Porcine) (Heparin Sq 5000 Unit/0.5ml) 5,000 unit Q12H SQ 07/17/16 06:00 08/16/16 05:59 Objective Vital Signs Date Time Temp Pulse Resp B/P Pulse Ox O2 Delivery O2 Flow Rate FiO2 07/17/16 07:08 36.5 74 18 139/60 100 2.0 07/17/16 00:07 36.7 74 18 111/50 100 2.0 07/16/16 20:27 77 137/63 07/16/16 19:50 Nasal Cannula 2.0 07/16/16 16:45 Nasal Cannula 2.0 07/16/16 16:13 36.6 73 22 133/61 100 Nasal Cannula 2.0 Physical Exam General Appearance: WD/WN, no apparent distress Eyes: normal inspection, EOMI, sclerae normal ENT: normal ENT inspection, pharynx normal Neck: supple, thyroid normal, trachea midline Respiratory/Chest: lungs clear, normal breath sounds, no respiratory distress Cardiovascular: regular rate, rhythm, no gallop, no murmur Abdomen: normal bowel sounds, non tender, soft, no organomegaly Extremities: non-tender, no calf tenderness Neurologic/Psychiatric: alert, oriented x 3 Skin: normal color, no rash Lymphatic: no adenopathy Laboratory Results Last 24 Hours Test 07/16/16 22:00 07/17/16 07:00 Prothrombin Time 12.7 SECONDS Prothromb Time International Ratio 1.2 Activated Partial Thromboplast Time 32.2 SECONDS Partial Thromboplastin Ratio 1.2 Sodium Level 146 mmol/L Potassium Level 3.7 mmol/L Chloride Level 110 mmol/L Carbon Dioxide Level 26 mmol/L Anion Gap 10.0 mmol/L Blood Urea Nitrogen 42 mg/dl Creatinine 3.30 mg/dl Est Creatinine Clear Calc Drug Dose 12.1 ml/min Estimated GFR () 14.2 Estimated GFR (Non- 12.3 BUN/Creatinine Ratio 12.9 Random Glucose 109 mg/dl Calcium Level 7.9 mg/dl Assessment and Plan patient with acute urinary tract infection with Klebsiella with acute kidney injury as well as mental status changes, appears to be improving with ertapenem. Would recommend 10 day course given multiple recurrences. We will follow.
[2016-07-17] MEDS: FEBUXOSTAT 40 MG TAB PO SCH (12:17)
--- NOTE | 2016-07-17 12:28 | Nephrology Progress Note ---
Nephrology Progress Note Date of Service Jul 17, 2016. Chief Complaint Follow-up for acute kidney injury, anemia, metabolic acidosis and advanced chronic kidney disease. Vince Mackey was seen and examined in her room this morning. She denies any symptoms. Appetite poor and still feels tired and weak but denies any nausea or abdominal discomfort. Has been having decent urine output. Renal function continues to improve, creatinine was 3.3 this morning. Review of Systems A complete review of systems was performed. Pertinent positives are noted above. All other systems are negative. Vital Signs Last 8 Hrs Date Time Temp Pulse Resp B/P Pulse Ox O2 Delivery O2 Flow Rate FiO2 07/17/16 07:08 36.5 74 18 139/60 100 2.0 I & O 24-Hour Column 07/17/16 07:59 Intake Total 2338 ml Output Total 1435 ml Balance 903 ml Last Recorded Weight Weight (Kilograms): 70.500 Physical Exam GENERAL: Elderly female, AAA x 3, pleasant, ill-appearing, not in any distress. NECK: Supple, no JVD. RESPIRATORY: Normal breathing efforts, no accessory muscle use, clear to auscultation bilaterally, no wheezes or rales. CARDIOVASCULAR: S1, S2 normal, rate rhythm regular. EXTREMITY: No lower extremity edema NEURO: speech fluent. PSYCHIATRY: Normal mood and judgment Family History Other cardiovascular diseases Negative for CKD / ESRD Social History Smoking Status: Never smoker Drug Use: none Marital Status: Housing Status: lives with family, snf 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 . Lives in [place], [place] w/ her . Three children. One son developed primary sclerosing cholangitis and required a liver transplant. 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 No history of tobacco or alcohol use. Laboratory Results Past 24 Hours 07/17/16 07:00 Test 07/16/16 22:00 07/17/16 07:00 Prothrombin Time 12.7 SECONDS (9.0-12.0) Prothromb Time International Ratio 1.2 (0.9-1.1) Activated Partial Thromboplast Time 32.2 SECONDS (21.0-31.0) Partial Thromboplastin Ratio 1.2 Anion Gap 10.0 mmol/L (3-11) Est Creatinine Clear Calc Drug Dose 12.1 ml/min Estimated GFR () 14.2 Estimated GFR (Non- 12.3 BUN/Creatinine Ratio 12.9 (10-20) Calcium Level 7.9 mg/dl (8.5-10.1) Allergies Coded Allergies: Amoxicillin (Verified Allergy, Unknown, UNKNOWN REACTION, 07/13/16) PER PCP RECORDS Clavulanic Acid (Verified Allergy, Unknown, UNKNOWN REACTION, 07/13/16) PER PCP RECORDS Penicillins (Verified Allergy, Unknown, UNKNOWN REACTION, 07/13/16) PER PCP RECORDS Sulfa Antibiotics (Verified Allergy, Unknown, BODY SWELLING,NAUSEA AND VOMITNG, 07/13/16) Medications Current Inpatient Medications Medications (Trade) Dose Ordered Sig/Helder Route Start Time Stop Time Status Last Admin Dose Admin Aspirin (Ecotrin Tab) 81 mg QPM PO 07/13/16 21:00 08/12/16 20:59 07/16/16 20:29 81 MG Atorvastatin Calcium (Lipitor Tab) 80 mg QPM PO 07/13/16 21:00 08/12/16 20:59 07/16/16 20:29 80 MG Carvedilol (Coreg Tab) 25 mg BID PO 07/13/16 20:00 08/12/16 20:59 07/17/16 08:04 25 MG Cholecalciferol (Vitamin D Tab) 1,000 inter.unit DAILY PO 07/14/16 08:00 08/13/16 08:59 07/17/16 08:05 1,000 INTER.UNIT Clopidogrel Bisulfate (plAVix TAB) 75 mg QPM PO 07/13/16 21:00 08/12/16 20:59 07/16/16 20:29 75 MG Lorazepam (Ativan Tab) 0.5 mg Q6H PRN PO 07/13/16 14:15 08/12/16 14:14 Multivitamins/ Minerals (Multivitamin W/ Minerals Tab) 1 tab QAM PO 07/14/16 08:00 08/13/16 08:59 07/17/16 08:04 1 TAB Nystatin (Mycostatin Powder) 1 appln BID EXT 07/13/16 20:00 08/12/16 20:59 07/17/16 08:02 1 APPLN Ondansetron HCl (Zofran Odt) 4 mg Q6H PRN PO 07/13/16 14:15 08/12/16 14:14 07/14/16 21:39 4 MG Pantoprazole Sodium (Protonix Tab) 40 mg QAM PO 07/14/16 08:00 08/13/16 08:59 07/17/16 08:04 40 MG Febuxostat (Uloric) 40 mg DAILY@1200 PO 07/14/16 12:00 08/13/16 11:59 07/16/16 11:29 40 MG Miscellaneous Information 1 ea 1 ea QS N/A 07/14/16 08:00 08/13/16 07:59 Ertapenem/Sodium Chloride (Invanz Iv/Nss 50ml) 55 ml @ 110 mls/hr DAILY@1400 IV 07/14/16 14:00 07/23/16 13:59 07/16/16 14:31 110 MLS/HR Ondansetron HCl (Zofran Inj) 4 mg Q6H PRN IV 07/13/16 14:15 08/12/16 14:14 Magnesium Hydroxide (Milk Of Magnesia Susp) 30 ml Q6H PRN PO 07/13/16 14:15 08/12/16 14:14 Bisacodyl (Dulcolax Tab) 5 mg DAILY PRN PO 07/13/16 14:15 08/12/16 14:14 Acetaminophen (Tylenol Tab) 650 mg Q4H PRN PO 07/13/16 18:15 08/12/16 18:14 Miscellaneous Information 1 ea UD PRN N/A 07/13/16 16:30 08/12/16 16:29 Loteprednol Etabonate 1 drops 1 drops QAM OPB 07/14/16 08:00 08/13/16 07:59 07/17/16 08:03 1 DROPS Sodium Bicarbonate/ Dextrose (Sodium Bicarbonate 8.4% Inj/D5W 1000ml) 1,100 ml @ 75 mls/hr [id number] IV 07/15/16 13:00 08/14/16 12:59 07/17/16 08:20 75 MLS/HR Heparin Sodium (Porcine) (Heparin Sq 5000 Unit/0.5ml) 5,000 unit Q12H SQ 07/17/16 06:00 08/16/16 05:59 Impression (1) Acute kidney injury (2) Chronic kidney disease (3) 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 (4) Ischemic cardiomyopathy (5) Generalized weakness (6) Diabetes (7) Anemia Patient admitted to the hospital for evaluation of management of dehydration and acute on chronic kidney injury. She has chronic bladder inflammation obstructing her ureters. She has had bilateral ureteral stents placed and changed out since 07/02. The patient has suffered from recurrent Klebsiella UTI. PMH - CKD stage V (ESRD - Baseline creatinine 3.0 w/ EGFR 13 cc/minute. Patient has indicated that she does not want HD if her kidneys fail. This would not provide her with quality of life), UVJ obstruction s/p bilateral ureteral stent placement 07/01, urinary and fecal incontinence, interstitial cystitis, recurrent cystitis with [id number] Klebsiella, recurrent C. difficile colitis, ICM w/ LVEF 25%, moderate MR, pulmonary HTN and moderate TR, AICD placement, hypercholesterolemia, chronic respiratory failure requiring ATC 02, obesity (BMI 32), general debilitated condition Recommendations ACUTE KIDNEY INJURY: -- Creatinine continues to trend downward ( Cr 6.0 --> 3.3 today), getting close to baseline. -- discontinue IV fluid -- encourage p.o. intake -- Monitor serial PRP CHRONIC KIDNEY DISEASE: -- Baseline creatinine 3.0 w/ EGFR 13 cc/min METABOLIC ACIDOSIS: -- resolved, DC sodium bicarbonate ANEMIA: -- Mild, asymptomatic anemia, stable. Monitor. Had adequate iron store. -- JOURDAN [id number] unit x 1 dose given on 07/16/2016. ID: -- Patient is on Invenz as per ID decorator consultant
[2016-07-17] MEDS ORDERED: ACETAMINOPHEN 500 MG TAB PO ONE (14:00)
[2016-07-17] MEDS: LORAZEPAM 0.5 MG TAB PO PRN (14:15)
[2016-07-17] MEDS: ERTAPENEM IV 500 MG in SODIUM CHLORIDE 0.9% 50ML 50 ML IV SCH (15:11)
[2016-07-17 15:16] VITALS: BP 128/52; PULSE 71; TEMP 36.3; O2SAT 93
--- NOTE | 2016-07-17 15:16 | DIAGNOSTIC IMAGING REPORT ---
ULTRASOUND VENOUS DOPPLER LWR EXT BILA CLINICAL HISTORY: Leg swelling. Patient is bedbound. COMPARISON STUDY: No previous studies for comparison. FINDINGS: Real-time and color flow Doppler imaging were performed. Flow was seen within the femoral, popliteal and calf veins with no intraluminal thrombus demonstrated. The saphenous vein is patent. IMPRESSION: No evidence of lower extremity DVT. Electronically signed by: Gagan Joel M.D. 07/17/2016 3:14 PM Dictated Date/Time: 07/17/2016 3:14 PM
[2016-07-17] MEDS: ATORVASTATIN 40 MG TAB PO SCH (21:30)
[2016-07-17] MEDS: ASPIRIN 81 MG ECTAB PO SCH (21:30)
[2016-07-17] MEDS: CLOPIDOGREL BISULFATE 75 MG TAB PO SCH (21:30)
[2016-07-17 21:40] VITALS: BP 119/58; PULSE 69
--- NOTE | 2016-07-17 21:44 | Progress Note ---
Subjective Date of Service: Jul 17, 2016. Subjective Pt evaluation today including: conversation w/ patient, conversation w/ family ( at bedside), physical exam, chart review, lab review, review of studies (dopplers - legs), conversation w/ edi consultant (ID), review of inpatient medication list Pain: legs - cramps at times PO Intake: again improved today Voiding: henriquez catheter in place no issues overnight again reports improved strength, improved appetite, improved liquid intake, and less fatigue Problem List Medical Problems: (1) Acute on chronic kidney failure Status: Acute (2) Acute renal failure Status: Acute (3) Altered mental status Status: Acute (4) ARF (acute renal failure) Status: Acute (5) CRD (chronic renal disease) Status: Acute (6) Dehydration Status: Acute (7) Dehydration Status: Acute (8) Fever Status: Acute (9) Hyperkalemia Status: Acute (10) PICC (peripherally inserted central catheter) in place Status: Acute (11) Pneumonia Status: Acute (12) Renal failure Status: Acute (13) Renal insufficiency Status: Acute (14) Renal insufficiency Status: Acute (15) Sepsis Status: Acute (16) Sepsis Status: Acute (17) Uremia Status: Acute (18) UTI (urinary tract infection) Status: Acute (19) UTI (urinary tract infection) Status: Acute (20) UTI (urinary tract infection) Status: Acute (21) Weakness Status: Acute (22) Weakness Status: Acute (23) Weakness Status: Acute (24) Weakness Status: Acute (25) Weakness Status: Acute Review of Systems Respiratory: No dyspnea at rest Cardiac: No chest pain, No orthopnea Abdomen: No diarrhea, No pain Objective Vital Signs Date Time Temp Pulse Resp B/P Pulse Ox O2 Delivery O2 Flow Rate FiO2 07/17/16 16:00 Nasal Cannula 2.0 07/17/16 15:16 36.3 71 24 128/52 93 Nasal Cannula 2.0 07/17/16 08:00 Nasal Cannula 2.0 07/17/16 07:08 36.5 74 18 139/60 100 2.0 07/17/16 00:07 36.7 74 18 111/50 100 2.0 Physical Exam General Appearance: no apparent distress ENT: pharynx normal Neck: no JVD Respiratory/Chest: lungs clear, no respiratory distress, no accessory muscle use Cardiovascular: regular rate, rhythm, no gallop, no murmur Abdomen: normal bowel sounds, non tender, soft, no organomegaly Extremities: + pedal edema, + pertinent finding (right calf modestly larger than left calf ) Neurologic/Psychiatric: alert Skin: no rash Laboratory Results Last 24 Hours Test 07/16/16 22:00 07/17/16 07:00 Prothrombin Time 12.7 SECONDS Prothromb Time International Ratio 1.2 Activated Partial Thromboplast Time 32.2 SECONDS Partial Thromboplastin Ratio 1.2 Sodium Level 146 mmol/L Potassium Level 3.7 mmol/L Chloride Level 110 mmol/L Carbon Dioxide Level 26 mmol/L Anion Gap 10.0 mmol/L Blood Urea Nitrogen 42 mg/dl Creatinine 3.30 mg/dl Est Creatinine Clear Calc Drug Dose 12.1 ml/min Estimated GFR () 14.2 Estimated GFR (Non- 12.3 BUN/Creatinine Ratio 12.9 Random Glucose 109 mg/dl Calcium Level 7.9 mg/dl Assessment and Plan 81yo female with: 1. MDR klebsiella UTI - day #5 of ertapenem. Resolving. Appreciate ID consult & recommendations. 2. acute kidney injury in setting of CKD stage 5 - BONNIE nearly resolved. fluids d/c. Nephrology consult appreciated. Baseline Cr about 3. 3. chronic systolic/diastolic CHF - compensated. Continue beta petra. 4. chronic respiratory failure on home O2 - stable, on baseline home O2. 5. 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 Reeves. Due for exchange of stents soon. 6. pulmonary HTN - cause of #4 above. Stable, no issues. 7. DVT proph - heparin BID. 8. chronic anemia - 2nd to CKD stage 5 - H/H stable. Follow with cbc every 2- 3 days. 9. hypernatremia - nearly resolved; allow to correct with PO hydration. 10. metabolic acidosis - 2nd to acute kidney injury - stable/improved. 11. CAD with h/o [place] - cont BB, aspirin, plavix, statin. 12. assymmetric calves on exam, high risk of DVT - dopplers obtained, negative for DVT. PT, OT evals pending updated really wants patient home; baseline function - able to stand from bed/ chair, use walker to pivot, then gets into a wheelchair; doesn't really ambulate if she can get to that point while here can return home with HH Continued [facility] stay due to: voiding difficulties, ambulation difficulties, multiple IV medications needed, other (acute kidney injury ) Discharge planning: other (hopefully home with home health )
[2016-07-18] VITALS: O2SAT 93
[2016-07-18 00:20] VITALS: BP 117/58; PULSE 75; TEMP 36.5; O2SAT 95
[2016-07-18] MEDS: HEPARIN SOD 5000 UNIT/0.5 ML CARP SQ SCH ×3 (05:57→17:52)
[2016-07-18 07:29] VITALS: BP 140/61; PULSE 75; TEMP 36; O2SAT 96
[2016-07-18 08:54] LABS: CREATININE 3.2 mg/dl (0.60-1.20)
[2016-07-18] MEDS: LOTEPREDNOL ETABONATE 0.5% OPB SCH (09:12)
[2016-07-18] MEDS: NYSTATIN POWDER 15GM BTL EXT SCH ×2 (09:12→20:13)
[2016-07-18] MEDS: CEROVITE ADV FORMULA TAB PO SCH (09:12)
[2016-07-18] MEDS: CHOLECALCIFEROL 1000 INTER.UNIT TAB PO SCH (09:13)
[2016-07-18] MEDS: PANTOprazole SOD 40 MG TAB PO SCH (09:14)
[2016-07-18] MEDS: CARVEDILOL 25 MG TAB PO SCH ×2 (09:14→20:17)
--- NOTE | 2016-07-18 10:13 | Nephrology Progress Note ---
Nephrology Progress Note Date of Service Jul 18, 2016. Chief Complaint Follow-up for acute kidney injury, anemia, metabolic acidosis and advanced chronic kidney disease. Vince Montiel was seen and examined in her room this am with her at bedside. She is overall feeling better, still feels weak. Blood cx negative, renal function close to baseline, cr 3.2. Review of Systems A complete review of systems was performed. Pertinent positives are noted above. All other systems are negative. Vital Signs Last 8 Hrs Date Time Temp Pulse Resp B/P Pulse Ox O2 Delivery O2 Flow Rate FiO2 07/18/16 07:29 36.0 75 18 140/61 96 Nasal Cannula 2.0 07/18/16 00:20 36.5 75 18 117/58 95 2.0 07/18/16 00:00 93 Nasal Cannula 2.0 I & O 24-Hour Column 07/18/16 08:00 Intake Total 400 ml Output Total 1500 ml Balance -1100 ml Last Recorded Weight Weight (Kilograms): 70.500 Physical Exam GENERAL: Elderly female, AAA x 3, pleasant, ill-appearing, not in any distress. NECK: Supple, no JVD. RESPIRATORY: Normal breathing efforts, no accessory muscle use, clear to auscultation bilaterally, no wheezes or rales. CARDIOVASCULAR: S1, S2 normal, rate rhythm regular. EXTREMITY: No lower extremity edema NEURO: speech fluent. PSYCHIATRY: Normal mood and judgment Family History Other cardiovascular diseases Negative for CKD / ESRD Social History Smoking Status: Never smoker Drug Use: none Marital Status: Housing Status: lives with family, long-term 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 . Lives in [place], [place] w/ her . Three children. One son developed primary sclerosing cholangitis and required a liver transplant. 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 No history of tobacco or alcohol use. Laboratory Results Past 24 Hours Test 07/18/16 04:44 Allergies Coded Allergies: Amoxicillin (Verified Allergy, Unknown, UNKNOWN REACTION, 07/13/16) PER PCP RECORDS Clavulanic Acid (Verified Allergy, Unknown, UNKNOWN REACTION, 07/13/16) PER PCP RECORDS Penicillins (Verified Allergy, Unknown, UNKNOWN REACTION, 07/13/16) PER PCP RECORDS Sulfa Antibiotics (Verified Allergy, Unknown, BODY SWELLING,NAUSEA AND VOMITNG, 07/13/16) Medications Current Inpatient Medications Medications (Trade) Dose Ordered Sig/Helder Route Start Time Stop Time Status Last Admin Dose Admin Aspirin (Ecotrin Tab) 81 mg QPM PO 07/13/16 21:00 08/12/16 20:59 07/17/16 21:30 81 MG Atorvastatin Calcium (Lipitor Tab) 80 mg QPM PO 07/13/16 21:00 08/12/16 20:59 07/17/16 21:30 80 MG Carvedilol (Coreg Tab) 25 mg BID PO 07/13/16 20:00 08/12/16 20:59 07/17/16 21:40 25 MG Cholecalciferol (Vitamin D Tab) 1,000 inter.unit DAILY PO 07/14/16 08:00 08/13/16 08:59 07/17/16 08:05 1,000 INTER.UNIT Clopidogrel Bisulfate (plAVix TAB) 75 mg QPM PO 07/13/16 21:00 08/12/16 20:59 07/17/16 21:30 75 MG Lorazepam (Ativan Tab) 0.5 mg Q6H PRN PO 07/13/16 14:15 08/12/16 14:14 07/17/16 14:15 0.5 MG Multivitamins/ Minerals (Multivitamin W/ Minerals Tab) 1 tab QAM PO 07/14/16 08:00 08/13/16 08:59 07/17/16 08:04 1 TAB Nystatin (Mycostatin Powder) 1 appln BID EXT 07/13/16 20:00 08/12/16 20:59 07/17/16 21:30 1 APPLN Ondansetron HCl (Zofran Odt) 4 mg Q6H PRN PO 07/13/16 14:15 08/12/16 14:14 07/14/16 21:39 4 MG Pantoprazole Sodium (Protonix Tab) 40 mg QAM PO 07/14/16 08:00 08/13/16 08:59 07/17/16 08:04 40 MG Febuxostat (Uloric) 40 mg DAILY@1200 PO 07/14/16 12:00 08/13/16 11:59 07/17/16 12:17 40 MG Miscellaneous Information 1 ea 1 ea QS N/A 07/14/16 08:00 08/13/16 07:59 Ertapenem/Sodium Chloride (Invanz Iv/Nss 50ml) 55 ml @ 110 mls/hr DAILY@1400 IV 07/14/16 14:00 07/23/16 13:59 07/17/16 15:11 110 MLS/HR Ondansetron HCl (Zofran Inj) 4 mg Q6H PRN IV 07/13/16 14:15 08/12/16 14:14 Magnesium Hydroxide (Milk Of Magnesia Susp) 30 ml Q6H PRN PO 07/13/16 14:15 08/12/16 14:14 Bisacodyl (Dulcolax Tab) 5 mg DAILY PRN PO 07/13/16 14:15 08/12/16 14:14 Acetaminophen (Tylenol Tab) 650 mg Q4H PRN PO 07/13/16 18:15 08/12/16 18:14 Miscellaneous Information 1 ea UD PRN N/A 07/13/16 16:30 08/12/16 16:29 Loteprednol Etabonate (Lotemax 0.5%) 1 drops QAM OPB 07/14/16 08:00 08/13/16 07:59 07/17/16 08:03 1 DROPS Heparin Sodium (Porcine) (Heparin Sq 5000 Unit/0.5ml) 5,000 unit Q12H SQ 07/17/16 06:00 08/16/16 05:59 Impression (1) Acute kidney injury (2) Chronic kidney disease (3) 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 (4) Ischemic cardiomyopathy (5) Generalized weakness (6) Diabetes (7) Anemia Patient admitted to the hospital for evaluation of management of dehydration and acute on chronic kidney injury. She has chronic bladder inflammation obstructing her ureters. She has had bilateral ureteral stents placed and changed out since 07/02. The patient has suffered from recurrent Klebsiella UTI. PMH - CKD stage V (ESRD - Baseline creatinine 3.0 w/ EGFR 13 cc/minute. Patient has indicated that she does not want HD if her kidneys fail. This would not provide her with quality of life), UVJ obstruction s/p bilateral ureteral stent placement 07/01, urinary and fecal incontinence, interstitial cystitis, recurrent cystitis with [id number] Klebsiella, recurrent C. difficile colitis, ICM w/ LVEF 25%, moderate MR, pulmonary HTN and moderate TR, AICD placement, hypercholesterolemia, chronic respiratory failure requiring ATC 02, obesity (BMI 32), general debilitated condition Recommendations ACUTE KIDNEY INJURY: -- Creatinine continues to trend downward ( Cr 6.0 --> 3.2 today) close to baseline. -- encourage p.o. intake -- Monitor serial PRP CHRONIC KIDNEY DISEASE: -- Baseline creatinine 3.0 w/ EGFR 13 cc/min ANEMIA: -- Mild, asymptomatic anemia, stable. Monitor. Had adequate iron store. -- JOURDAN [id number] unit x 1 dose given on 07/16/2016. ID: -- Patient is on Invenz as per ID automotive internet sales consultant
[2016-07-18] MEDS: LORAZEPAM 0.5 MG TAB PO PRN (10:53)
[2016-07-18] MEDS: ONDANSETRON 4MG OD TAB PO PRN (10:53)
[2016-07-18] MEDS: FEBUXOSTAT 40 MG TAB PO SCH (13:27)
[2016-07-18] MEDS: ERTAPENEM IV 500 MG in SODIUM CHLORIDE 0.9% 50ML 50 ML IV SCH (13:29)
[2016-07-18 15:58] VITALS: BP 136/64; PULSE 81; TEMP 36.1; O2SAT 97
[2016-07-18] MEDS: ASPIRIN 81 MG ECTAB PO SCH (20:17)
[2016-07-18] MEDS: ATORVASTATIN 40 MG TAB PO SCH (20:17)
[2016-07-18] MEDS: CLOPIDOGREL BISULFATE 75 MG TAB PO SCH (20:17)
--- NOTE | 2016-07-18 21:13 | Progress Note ---
Subjective Date of Service: Jul 18, 2016. Subjective Pt evaluation today including: conversation w/ patient, conversation w/ family ( at bedside), physical exam, chart review, lab review, conversation w/ portfolio consultant (social work), review of inpatient medication list Pain: legs - chronic PO Intake: fair today (was better yesterday per ) Voiding: henriquez catheter in place during PT session patient basically need 2 people to assist her to stand this is worse than her typical baseline (can usually stand unassisted, pivots w / walker, then sits in a chair) does NOT want SNF placement for rehab wants her at home they have additional caregivers and home PT thinks her speech today is a "little slurred" but no swallowing difficulties and she is otherwise at baseline Problem List Medical Problems: (1) Acute on chronic kidney failure Status: Acute (2) Acute renal failure Status: Acute (3) Altered mental status Status: Acute (4) ARF (acute renal failure) Status: Acute (5) CRD (chronic renal disease) Status: Acute (6) Dehydration Status: Acute (7) Dehydration Status: Acute (8) Fever Status: Acute (9) Hyperkalemia Status: Acute (10) PICC (peripherally inserted central catheter) in place Status: Acute (11) Pneumonia Status: Acute (12) Renal failure Status: Acute (13) Renal insufficiency Status: Acute (14) Renal insufficiency Status: Acute (15) Sepsis Status: Acute (16) Sepsis Status: Acute (17) Uremia Status: Acute (18) UTI (urinary tract infection) Status: Acute (19) UTI (urinary tract infection) Status: Acute (20) UTI (urinary tract infection) Status: Acute (21) Weakness Status: Acute (22) Weakness Status: Acute (23) Weakness Status: Acute (24) Weakness Status: Acute (25) Weakness Status: Acute Review of Systems Constitutional: No fever Respiratory: No cough, No dyspnea at rest Cardiac: No chest pain, No orthopnea Abdomen: No diarrhea, No pain Objective Vital Signs Date Time Temp Pulse Resp B/P Pulse Ox O2 Delivery O2 Flow Rate FiO2 07/18/16 15:58 36.1 81 18 136/64 97 Nasal Cannula 2.0 07/18/16 15:55 Room Air 07/18/16 08:00 Nasal Cannula 2.0 07/18/16 07:29 36.0 75 18 140/61 96 Nasal Cannula 2.0 07/18/16 00:20 36.5 75 18 117/58 95 2.0 07/18/16 00:00 93 Nasal Cannula 2.0 07/17/16 21:40 69 119/58 Physical Exam General Appearance: no apparent distress ENT: pharynx normal Neck: no JVD Respiratory/Chest: lungs clear, no respiratory distress, no accessory muscle use Cardiovascular: regular rate, rhythm, no gallop, no murmur Abdomen: normal bowel sounds, non tender, soft, no organomegaly Extremities: no pedal edema Neurologic/Psychiatric: alert, oriented x 3, + pertinent finding (foot drop b/l , worse on left) Laboratory Results Last 24 Hours Test 07/18/16 07:45 Creatinine 3.20 mg/dl Est Creatinine Clear Calc Drug Dose 12.5 ml/min Estimated GFR () 14.8 Estimated GFR (Non- 12.8 Assessment and Plan 81yo female with: 1. MDR klebsiella UTI - day #610 of ertapenem. Resolving. Appreciate ID consult & recommendations. Can d/c to home with 4 more days of ertapenem via PIV. 2. acute kidney injury in setting of CKD stage 5 - BONNIE resolved. Cr today 3.2, baseline about 3. Nephrology consult appreciated. 3. chronic systolic/diastolic CHF - compensated. Continue beta petra. 4. chronic respiratory failure on home O2 - stable, on baseline home O2. 5. 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 Reeves. I spoke with Dr. Reeves today -- stents do not need to be exchanged this admission. Scheduled for such later this month. no clinical signs of obstruction. 6. pulmonary HTN - cause of #4 above. Stable, no issues. 7. DVT proph - heparin BID. 8. chronic anemia - 2nd to CKD stage 5 - repeat CBC in am. 9. hypernatremia - repeat BMP am. 10. deconditioning - PT/OT as tolerated; poor candidate for additional rehab at [facility]. 11. CAD with h/o [place] - cont BB, aspirin, plavix, statin. again insists today that he wants patient home; baseline function - able to stand from bed/chair, use walker to pivot, then gets into a wheelchair; doesn't really ambulate she has lost functional ground since even 1 week ago he understands that and he feels he has enough help to make the transition home a success with his refusing SNF placement not a candidate for [facility] overnight re-eval in AM hopefully d/c in AM d/c [place] in AM Continued [facility] stay due to: voiding difficulties, ambulation difficulties, multiple IV medications needed, other (acute kidney injury ) Discharge planning: other (hopefully home with home health )
--- NOTE | 2016-07-18 22:08 | Infectious Disease Progress Nt ---
Progress Note Date of Service Jul 18, 2016. Subjective Pt evaluation today including: conversation w/ patient, conversation w/ family , physical exam, chart review, lab review, review of studies, conversation w/ automotive service consultant, review of inpatient medication list Patient feeling somewhat better today. Offering no new complaints. Remains afebrile. Urine appears clearer. Creatinine improving. All Other Systems: Reviewed and Negative Medications Current Inpatient Medications Medications (Trade) Dose Ordered Sig/Helder Route Start Time Stop Time Status Last Admin Dose Admin Aspirin (Ecotrin Tab) 81 mg QPM PO 07/13/16 21:00 08/12/16 20:59 07/18/16 20:17 81 MG Atorvastatin Calcium (Lipitor Tab) 80 mg QPM PO 07/13/16 21:00 08/12/16 20:59 07/18/16 20:17 80 MG Carvedilol (Coreg Tab) 25 mg BID PO 07/13/16 20:00 08/12/16 20:59 07/18/16 20:17 25 MG Cholecalciferol (Vitamin D Tab) 1,000 inter.unit DAILY PO 07/14/16 08:00 08/13/16 08:59 07/18/16 09:13 1,000 INTER.UNIT Clopidogrel Bisulfate (plAVix TAB) 75 mg QPM PO 07/13/16 21:00 08/12/16 20:59 07/18/16 20:17 75 MG Lorazepam (Ativan Tab) 0.5 mg Q6H PRN PO 07/13/16 14:15 08/12/16 14:14 07/18/16 10:53 0.5 MG Multivitamins/ Minerals (Multivitamin W/ Minerals Tab) 1 tab QAM PO 07/14/16 08:00 08/13/16 08:59 07/18/16 09:12 1 TAB Nystatin (Mycostatin Powder) 1 appln BID EXT 07/13/16 20:00 08/12/16 20:59 07/18/16 20:13 1 APPLN Ondansetron HCl (Zofran Odt) 4 mg Q6H PRN PO 07/13/16 14:15 08/12/16 14:14 07/18/16 10:53 4 MG Pantoprazole Sodium (Protonix Tab) 40 mg QAM PO 07/14/16 08:00 08/13/16 08:59 07/18/16 09:14 40 MG Febuxostat (Uloric) 40 mg DAILY@1200 PO 07/14/16 12:00 08/13/16 11:59 07/18/16 13:27 40 MG Miscellaneous Information 1 ea 1 ea QS N/A 07/14/16 08:00 08/13/16 07:59 Ertapenem/Sodium Chloride (Invanz Iv/Nss 50ml) 55 ml @ 110 mls/hr DAILY@1400 IV 07/14/16 14:00 07/23/16 13:59 07/18/16 13:29 110 MLS/HR Ondansetron HCl (Zofran Inj) 4 mg Q6H PRN IV 07/13/16 14:15 08/12/16 14:14 Magnesium Hydroxide (Milk Of Magnesia Susp) 30 ml Q6H PRN PO 07/13/16 14:15 08/12/16 14:14 Bisacodyl (Dulcolax Tab) 5 mg DAILY PRN PO 07/13/16 14:15 08/12/16 14:14 Acetaminophen (Tylenol Tab) 650 mg Q4H PRN PO 07/13/16 18:15 08/12/16 18:14 Miscellaneous Information 1 ea UD PRN N/A 07/13/16 16:30 08/12/16 16:29 Loteprednol Etabonate (Lotemax 0.5%) 1 drops QAM OPB 07/14/16 08:00 08/13/16 07:59 07/18/16 09:12 1 DROPS Heparin Sodium (Porcine) (Heparin Sq 5000 Unit/0.5ml) 5,000 unit Q12H SQ 07/17/16 06:00 08/16/16 05:59 Objective Vital Signs Date Time Temp Pulse Resp B/P Pulse Ox O2 Delivery O2 Flow Rate FiO2 07/18/16 15:58 36.1 81 18 136/64 97 Nasal Cannula 2.0 07/18/16 15:55 Room Air 07/18/16 08:00 Nasal Cannula 2.0 07/18/16 07:29 36.0 75 18 140/61 96 Nasal Cannula 2.0 07/18/16 00:20 36.5 75 18 117/58 95 2.0 07/18/16 00:00 93 Nasal Cannula 2.0 Physical Exam General Appearance: WD/WN, no apparent distress Eyes: normal inspection, sclerae normal ENT: normal ENT inspection, pharynx normal Neck: supple, no adenopathy, trachea midline Respiratory/Chest: lungs clear, normal breath sounds, no respiratory distress Cardiovascular: regular rate, rhythm, no gallop, no murmur Abdomen: normal bowel sounds, non tender, soft, no organomegaly Extremities: non-tender, no calf tenderness Neurologic/Psychiatric: alert, oriented x 3 Skin: normal color, no rash Lymphatic: no adenopathy Laboratory Results Last 24 Hours Test 07/18/16 07:45 Creatinine 3.20 mg/dl Est Creatinine Clear Calc Drug Dose 12.5 ml/min Estimated GFR () 14.8 Estimated GFR (Non- 12.8 Assessment and Plan patient with acute urinary tract infection with Klebsiella with acute kidney injury as well as mental status changes, appears to be improving with ertapenem. Would recommend 10 day course given multiple recurrences. We will follow.
[2016-07-18 23:35] VITALS: BP 133/64; PULSE 80; TEMP 36.5; O2SAT 95
[2016-07-19 05:56] LABS: HEMATOCRIT 29.3 % (37-47); MEAN CELL VOLUME 97.3 fL (80-100); MEAN CORPUSCULAR HEMOGLOBIN 30.9 pg (25-34); MEAN CORPUSCULAR HGB CONC 31.7 g/dl (32-36); MEAN PLATELET VOLUME 9.3 fL (7.4-10.4); PLATELET COUNT 182 K/uL (130-400); RED BLOOD COUNT 3.01 M/uL (4.2-5.4); WHITE BLOOD COUNT 9.93 K/uL (4.8-10.8)
[2016-07-19] MEDS: HEPARIN SOD 5000 UNIT/0.5 ML CARP SQ SCH ×2 (06:00→18:00)
[2016-07-19 06:27] LABS: BUN/CREATININE RATIO 10.5 (10-20); CREATININE 3.1 mg/dl (0.60-1.20); PHOSPHORUS 2.4 mg/dl (2.5-4.9); POTASSIUM 3.6 mmol/L (3.5-5.1)
[2016-07-19 06:33] LABS: CALCIUM 8.4 mg/dl (8.5-10.1)
[2016-07-19 07:24] VITALS: BP 130/64; PULSE 79; TEMP 36.6; O2SAT 97
[2016-07-19] MEDS ORDERED: DEXTROSE 5% 1000ML 1,000 ML IV SCH ×2 (08:00→08:30)
--- NOTE | 2016-07-19 09:34 | Nephrology Progress Note ---
Nephrology Progress Note Date of Service Jul 19, 2016. Chief Complaint Follow-up for acute kidney injury, anemia, metabolic acidosis and advanced chronic kidney disease. Subjective Mrs Chase was seen and examined with her at bedside. She murdock sbeen having poor po intake, occasional hallucination and slurred speech as per but currently she is speaking in full sentence and awake, alert , no confusion. Denies being thirsty. BP stable. No fever, chills. Review of Systems A complete review of systems was performed. Pertinent positives are noted above. All other systems are negative. Vital Signs Last 8 Hrs Date Time Temp Pulse Resp B/P Pulse Ox O2 Delivery O2 Flow Rate FiO2 07/19/16 07:24 36.6 79 18 130/64 97 Nasal Cannula 2.0 07/19/16 00:00 Room Air I & O 24-Hour Column 07/19/16 07:59 Intake Total 390 ml Output Total 750 ml Balance -360 ml Last Recorded Weight Weight (Kilograms): 70.500 Physical Exam GENERAL: Elderly female, AAA x 3, ill-appearing, not in any distress. NECK: Supple, no JVD. RESPIRATORY: Normal breathing efforts, no accessory muscle use, clear to auscultation bilaterally, no wheezes or rales. CARDIOVASCULAR: S1, S2 normal, rate rhythm regular. EXTREMITY: No lower extremity edema NEURO: speech fluent. PSYCHIATRY: flat affect. Family History Other cardiovascular diseases Negative for CKD / ESRD Social History Smoking Status: Never smoker Drug Use: none Marital Status: Housing Status: lives with family, correction 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 . Lives in [place], [place] w/ her . Three children. One son developed primary sclerosing cholangitis and required a liver transplant. 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 Her continues to work as a senior quality analyst/range rider. No history of tobacco or alcohol use. Laboratory Results Past 24 Hours 07/19/16 05:09 07/19/16 05:09 Test 07/19/16 05:09 Red Blood Count 3.01 M/uL (4.2-5.4) Mean Corpuscular Volume 97.3 fL (80-100) Mean Corpuscular Hemoglobin 30.9 pg (25-34) Mean Corpuscular Hemoglobin Concent 31.7 g/dl (32-36) RDW Standard Deviation 54.8 fL (36.4-46.3) RDW Coefficient of Variation 15.6 % (11.5-14.5) Mean Platelet Volume 9.3 fL (7.4-10.4) Nucleated RBC Absolute Count (auto) 0.10 K/uL (0-0) Nucleated Red Blood Cells % 1.1 % Anion Gap 11.0 mmol/L (3-11) Est Creatinine Clear Calc Drug Dose 12.9 ml/min Estimated GFR () 15.4 Estimated GFR (Non- 13.3 BUN/Creatinine Ratio 10.5 (10-20) Calcium Level 8.4 mg/dl (8.5-10.1) Phosphorus Level 2.4 mg/dl (2.5-4.9) Albumin 2.1 gm/dl (3.4-5.0) Allergies Coded Allergies: Amoxicillin (Verified Allergy, Unknown, UNKNOWN REACTION, 07/13/16) PER PCP RECORDS Clavulanic Acid (Verified Allergy, Unknown, UNKNOWN REACTION, 07/13/16) PER PCP RECORDS Penicillins (Verified Allergy, Unknown, UNKNOWN REACTION, 07/13/16) PER PCP RECORDS Sulfa Antibiotics (Verified Allergy, Unknown, BODY SWELLING,NAUSEA AND VOMITNG, 07/13/16) Medications Current Inpatient Medications Medications (Trade) Dose Ordered Sig/Helder Route Start Time Stop Time Status Last Admin Dose Admin Aspirin (Ecotrin Tab) 81 mg QPM PO 07/13/16 21:00 08/12/16 20:59 07/18/16 20:17 81 MG Atorvastatin Calcium (Lipitor Tab) 80 mg QPM PO 07/13/16 21:00 08/12/16 20:59 07/18/16 20:17 80 MG Carvedilol (Coreg Tab) 25 mg BID PO 07/13/16 20:00 08/12/16 20:59 07/18/16 20:17 25 MG Cholecalciferol (Vitamin D Tab) 1,000 inter.unit DAILY PO 07/14/16 08:00 08/13/16 08:59 07/18/16 09:13 1,000 INTER.UNIT Clopidogrel Bisulfate (plAVix TAB) 75 mg QPM PO 07/13/16 21:00 08/12/16 20:59 07/18/16 20:17 75 MG Lorazepam (Ativan Tab) 0.5 mg Q6H PRN PO 07/13/16 14:15 08/12/16 14:14 07/18/16 10:53 0.5 MG Multivitamins/ Minerals (Multivitamin W/ Minerals Tab) 1 tab QAM PO 07/14/16 08:00 08/13/16 08:59 07/18/16 09:12 1 TAB Nystatin (Mycostatin Powder) 1 appln BID EXT 07/13/16 20:00 08/12/16 20:59 07/18/16 20:13 1 APPLN Ondansetron HCl (Zofran Odt) 4 mg Q6H PRN PO 07/13/16 14:15 08/12/16 14:14 07/18/16 10:53 4 MG Pantoprazole Sodium (Protonix Tab) 40 mg QAM PO 07/14/16 08:00 08/13/16 08:59 07/18/16 09:14 40 MG Febuxostat (Uloric) 40 mg DAILY@1200 PO 07/14/16 12:00 08/13/16 11:59 07/18/16 13:27 40 MG Miscellaneous Information 1 ea 1 ea QS N/A 07/14/16 08:00 08/13/16 07:59 Ertapenem/Sodium Chloride (Invanz Iv/Nss 50ml) 55 ml @ 110 mls/hr DAILY@1400 IV 07/14/16 14:00 07/23/16 13:59 07/18/16 13:29 110 MLS/HR Ondansetron HCl (Zofran Inj) 4 mg Q6H PRN IV 07/13/16 14:15 08/12/16 14:14 Magnesium Hydroxide (Milk Of Magnesia Susp) 30 ml Q6H PRN PO 07/13/16 14:15 08/12/16 14:14 Bisacodyl (Dulcolax Tab) 5 mg DAILY PRN PO 07/13/16 14:15 08/12/16 14:14 Acetaminophen (Tylenol Tab) 650 mg Q4H PRN PO 07/13/16 18:15 08/12/16 18:14 Miscellaneous Information 1 ea UD PRN N/A 07/13/16 16:30 08/12/16 16:29 Loteprednol Etabonate (Lotemax 0.5%) 1 drops QAM OPB 07/14/16 08:00 08/13/16 07:59 07/18/16 09:12 1 DROPS Heparin Sodium (Porcine) (Heparin Sq 5000 Unit/0.5ml) 5,000 unit Q12H SQ 07/17/16 06:00 08/16/16 05:59 Impression (1) Acute kidney injury (2) Chronic kidney disease (3) 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 (4) Ischemic cardiomyopathy (5) Generalized weakness (6) Diabetes (7) Anemia Patient admitted to the hospital for evaluation of management of dehydration and acute on chronic kidney injury. She has chronic bladder inflammation obstructing her ureters. She has had bilateral ureteral stents placed and changed out since 07/02. The patient has suffered from recurrent Klebsiella UTI. PMH - CKD stage V (ESRD - Baseline creatinine 3.0 w/ EGFR 13 cc/minute. Patient has indicated that she does not want HD if her kidneys fail. 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 difficile colitis, ICM w/ LVEF 25%, moderate MR, pulmonary HTN and moderate TR, AICD placement, hypercholesterolemia, chronic respiratory failure requiring ATC 02, obesity (BMI 32), general debilitated condition Recommendations ACUTE KIDNEY INJURY: -- resolved, Creatinine 3.1 this am, close to baseline. -- encourage p.o. intake -- Monitor serial PRP CHRONIC KIDNEY DISEASE: -- Baseline creatinine 3.0 w/ EGFR 13 cc/min ANEMIA: -- Mild, asymptomatic anemia, stable. Monitor. Had adequate iron store. -- JOURDAN [id number] unit x 1 dose given on 07/16/2016. Hypernatremia: --with decrease free water intake --start on D5W at 75 ml/h for a liter and then reassess ID: -- Patient is on Invenz for Klebsiella UTI, will need total 10 days
[2016-07-19] MEDS: NYSTATIN POWDER 15GM BTL EXT SCH ×2 (09:43→19:28)
[2016-07-19] MEDS: CARVEDILOL 25 MG TAB PO SCH ×2 (09:44→19:29)
[2016-07-19] MEDS: PANTOprazole SOD 40 MG TAB PO SCH (09:44)
[2016-07-19] MEDS: LOTEPREDNOL ETABONATE 0.5% OPB SCH (09:44)
[2016-07-19] MEDS: CHOLECALCIFEROL 1000 INTER.UNIT TAB PO SCH (09:44)
[2016-07-19] MEDS: CEROVITE ADV FORMULA TAB PO SCH (09:45)
--- NOTE | 2016-07-19 10:29 | Infectious Disease Progress Nt ---
Progress Note Date of Service Jul 19, 2016. Subjective Pt evaluation today including: conversation w/ patient, conversation w/ family , physical exam, chart review, lab review, review of studies, conversation w/ optimization consultant, review of inpatient medication list Patient more confused this a.m.. No fever, hemodynamically stable, denies any new pain, urine continues to improve. All Other Systems: Reviewed and Negative Medications Current Inpatient Medications Medications (Trade) Dose Ordered Sig/Helder Route Start Time Stop Time Status Last Admin Dose Admin Aspirin (Ecotrin Tab) 81 mg QPM PO 07/13/16 21:00 08/12/16 20:59 07/18/16 20:17 81 MG Atorvastatin Calcium (Lipitor Tab) 80 mg QPM PO 07/13/16 21:00 08/12/16 20:59 07/18/16 20:17 80 MG Carvedilol (Coreg Tab) 25 mg BID PO 07/13/16 20:00 08/12/16 20:59 07/19/16 09:44 25 MG Cholecalciferol (Vitamin D Tab) 1,000 inter.unit DAILY PO 07/14/16 08:00 08/13/16 08:59 07/19/16 09:44 1,000 INTER.UNIT Clopidogrel Bisulfate (plAVix TAB) 75 mg QPM PO 07/13/16 21:00 08/12/16 20:59 07/18/16 20:17 75 MG Lorazepam (Ativan Tab) 0.5 mg Q6H PRN PO 07/13/16 14:15 08/12/16 14:14 07/18/16 10:53 0.5 MG Multivitamins/ Minerals (Multivitamin W/ Minerals Tab) 1 tab QAM PO 07/14/16 08:00 08/13/16 08:59 07/19/16 09:45 1 TAB Nystatin (Mycostatin Powder) 1 appln BID EXT 07/13/16 20:00 08/12/16 20:59 07/19/16 09:43 1 APPLN Ondansetron HCl (Zofran Odt) 4 mg Q6H PRN PO 07/13/16 14:15 08/12/16 14:14 07/18/16 10:53 4 MG Pantoprazole Sodium (Protonix Tab) 40 mg QAM PO 07/14/16 08:00 08/13/16 08:59 07/19/16 09:44 40 MG Febuxostat (Uloric) 40 mg DAILY@1200 PO 07/14/16 12:00 08/13/16 11:59 07/18/16 13:27 40 MG Miscellaneous Information 1 ea 1 ea QS N/A 07/14/16 08:00 08/13/16 07:59 Ertapenem/Sodium Chloride (Invanz Iv/Nss 50ml) 55 ml @ 110 mls/hr DAILY@1400 IV 07/14/16 14:00 07/23/16 13:59 Future Hold 07/18/16 13:29 110 MLS/HR Ondansetron HCl (Zofran Inj) 4 mg Q6H PRN IV 07/13/16 14:15 08/12/16 14:14 Magnesium Hydroxide (Milk Of Magnesia Susp) 30 ml Q6H PRN PO 07/13/16 14:15 08/12/16 14:14 Bisacodyl (Dulcolax Tab) 5 mg DAILY PRN PO 07/13/16 14:15 08/12/16 14:14 Acetaminophen (Tylenol Tab) 650 mg Q4H PRN PO 07/13/16 18:15 08/12/16 18:14 Miscellaneous Information 1 ea UD PRN N/A 07/13/16 16:30 08/12/16 16:29 Loteprednol Etabonate (Lotemax 0.5%) 1 drops QAM OPB 07/14/16 08:00 08/13/16 07:59 07/19/16 09:44 1 DROPS Heparin Sodium (Porcine) 5000 unit 5,000 unit Q12H SQ 07/17/16 06:00 08/16/16 05:59 Dextrose (D5W 1000ml) 1,000 ml @ 75 mls/hr [id number] IV 07/19/16 08:00 07/19/16 21:19 07/19/16 08:34 75 MLS/HR Objective Vital Signs Date Time Temp Pulse Resp B/P Pulse Ox O2 Delivery O2 Flow Rate FiO2 07/19/16 08:00 Nasal Cannula 2.0 07/19/16 07:24 36.6 79 18 130/64 97 Nasal Cannula 2.0 07/19/16 00:00 Room Air 07/18/16 23:35 36.5 80 18 133/64 95 Room Air 07/18/16 15:58 36.1 81 18 136/64 97 Nasal Cannula 2.0 07/18/16 15:55 Room Air Physical Exam General Appearance: WD/WN, no apparent distress Eyes: normal inspection, sclerae normal ENT: normal ENT inspection, pharynx normal Neck: supple, no adenopathy, trachea midline Respiratory/Chest: lungs clear, normal breath sounds, no respiratory distress Cardiovascular: regular rate, rhythm, no gallop, no murmur Abdomen: normal bowel sounds, non tender, soft, no organomegaly Extremities: non-tender, no calf tenderness Neurologic/Psychiatric: alert, + pertinent finding (Relatively oriented at present) Skin: normal color, no rash Lymphatic: no adenopathy Laboratory Results Last 24 Hours Test 07/19/16 05:09 White Blood Count 9.93 K/uL Red Blood Count 3.01 M/uL Hemoglobin 9.3 g/dL Hematocrit 29.3 % Mean Corpuscular Volume 97.3 fL Mean Corpuscular Hemoglobin 30.9 pg Mean Corpuscular Hemoglobin Concent 31.7 g/dl RDW Standard Deviation 54.8 fL RDW Coefficient of Variation 15.6 % Platelet Count 182 K/uL Mean Platelet Volume 9.3 fL Nucleated RBC Absolute Count (auto) 0.10 K/uL Nucleated Red Blood Cells % 1.1 % Sodium Level 148 mmol/L Potassium Level 3.6 mmol/L Chloride Level 112 mmol/L Carbon Dioxide Level 25 mmol/L Anion Gap 11.0 mmol/L Blood Urea Nitrogen 32 mg/dl Creatinine 3.10 mg/dl Est Creatinine Clear Calc Drug Dose 12.9 ml/min Estimated GFR () 15.4 Estimated GFR (Non- 13.3 BUN/Creatinine Ratio 10.5 Random Glucose 101 mg/dl Calcium Level 8.4 mg/dl Phosphorus Level 2.4 mg/dl Albumin 2.1 gm/dl Assessment and Plan patient with acute urinary tract infection with Klebsiella with acute kidney injury as well as mental status changes, had been improving but now with mental status changes, worry about the possibility that ertapenem may be causing. Patient to have repeat urine culture done, and Invanz will be held pending culture results. Discussed with Dr. Porter. Will continue to follow.
[2016-07-19 11:32] LABS: URINE APPEARANCE TURBID (CLEAR); URINE BILIRUBIN NEG (NEG); URINE COLOR YELLOW; URINE EPITHELIAL CELL AUTO >30 /lpf (0-5); URINE NITRITE NEG (NEG); UROBILINOGEN NEG (NEG)
[2016-07-19 11:34] LABS: MANUAL MICROSCOPIC REQUIRED? NO; REVIEW REQ? YES
[2016-07-19 12:02] LABS: URINE PATH CASTS 0-3 GRANULAR CASTS /lpf (0)
[2016-07-19] MEDS: FEBUXOSTAT 40 MG TAB PO SCH (12:52)
[2016-07-19] MEDS: ONDANSETRON 4MG OD TAB PO PRN (14:44)
[2016-07-19 15:33] VITALS: BP 146/72; PULSE 74; TEMP 36.4; O2SAT 97
--- NOTE | 2016-07-19 18:43 | Progress Note ---
Subjective Date of Service: Jul 19, 2016. Subjective Pt evaluation today including: conversation w/ patient, conversation w/ family ( - at bedside), physical exam, chart review, lab review, conversation w / partner management consultant (ID (Dr Griffin); nephro (Dr Haywood); social work) Pain: legs - chronic; no abd pain PO Intake: poor x 24 hours Voiding: henriquez catheter in place had episode of confusion overnight, then again this am speech "slurry" per poor appetite again developed diarrhea today as well continues to be weak still plans on bringing her home after discharge Problem List Medical Problems: (1) Acute on chronic kidney failure Status: Acute (2) Acute renal failure Status: Acute (3) Altered mental status Status: Acute (4) ARF (acute renal failure) Status: Acute (5) CRD (chronic renal disease) Status: Acute (6) Dehydration Status: Acute (7) Dehydration Status: Acute (8) Fever Status: Acute (9) Hyperkalemia Status: Acute (10) PICC (peripherally inserted central catheter) in place Status: Acute (11) Pneumonia Status: Acute (12) Renal failure Status: Acute (13) Renal insufficiency Status: Acute (14) Renal insufficiency Status: Acute (15) Sepsis Status: Acute (16) Sepsis Status: Acute (17) Uremia Status: Acute (18) UTI (urinary tract infection) Status: Acute (19) UTI (urinary tract infection) Status: Acute (20) UTI (urinary tract infection) Status: Acute (21) Weakness Status: Acute (22) Weakness Status: Acute (23) Weakness Status: Acute (24) Weakness Status: Acute (25) Weakness Status: Acute Review of Systems Constitutional: + fatigue, No chills, No fever Respiratory: No cough, No shortness of breath Cardiac: No chest pain, No orthopnea Abdomen: + diarrhea, + nausea, No pain, No vomiting Objective Vital Signs Date Time Temp Pulse Resp B/P Pulse Ox O2 Delivery O2 Flow Rate FiO2 07/19/16 16:00 Nasal Cannula 2.0 07/19/16 15:33 36.4 74 18 146/72 97 Nasal Cannula 2.0 07/19/16 08:00 Nasal Cannula 2.0 07/19/16 07:24 36.6 79 18 130/64 97 Nasal Cannula 2.0 07/19/16 00:00 Room Air 07/18/16 23:35 36.5 80 18 133/64 95 Room Air Physical Exam General Appearance: no apparent distress ENT: pharynx normal Neck: no JVD Respiratory/Chest: lungs clear, no respiratory distress, no accessory muscle use Cardiovascular: regular rate, rhythm, no gallop, no murmur Abdomen: normal bowel sounds, non tender, soft, no organomegaly Extremities: no pedal edema Neurologic/Psychiatric: alert, oriented x 3, + pertinent finding (speech slightly slurred but coherent; strength 5/5 x 4 exts; no facial droop ) Laboratory Results Last 24 Hours Test 07/19/16 00:00 07/19/16 05:09 Urine Color YELLOW Urine Appearance TURBID Urine pH 7.0 Urine Specific [place] 1.010 Urine Protein 2+ Urine Glucose (UA) NEG Urine Ketones NEG Urine Occult Blood 3+ Urine Nitrite NEG Urine Bilirubin NEG Urine Urobilinogen NEG Urine Leukocyte Esterase LARGE Urine WBC (Auto) >30 /hpf Urine RBC (Auto) >30 /hpf Urine Hyaline Casts (Auto) 1-5 /lpf Urine Epithelial Cells (Auto) >30 /lpf Urine Bacteria (Auto) NEG Urine Pathogenic Casts 0-3 GRANULAR CASTS /lpf Urine Yeast (Auto) White Blood Count 9.93 K/uL Red Blood Count 3.01 M/uL Hemoglobin 9.3 g/dL Hematocrit 29.3 % Mean Corpuscular Volume 97.3 fL Mean Corpuscular Hemoglobin 30.9 pg Mean Corpuscular Hemoglobin Concent 31.7 g/dl RDW Standard Deviation 54.8 fL RDW Coefficient of Variation 15.6 % Platelet Count 182 K/uL Mean Platelet Volume 9.3 fL Nucleated RBC Absolute Count (auto) 0.10 K/uL Nucleated Red Blood Cells % 1.1 % Sodium Level 148 mmol/L Potassium Level 3.6 mmol/L Chloride Level 112 mmol/L Carbon Dioxide Level 25 mmol/L Anion Gap 11.0 mmol/L Blood Urea Nitrogen 32 mg/dl Creatinine 3.10 mg/dl Est Creatinine Clear Calc Drug Dose 12.9 ml/min Estimated GFR () 15.4 Estimated GFR (Non- 13.3 BUN/Creatinine Ratio 10.5 Random Glucose 101 mg/dl Calcium Level 8.4 mg/dl Phosphorus Level 2.4 mg/dl Albumin 2.1 gm/dl Assessment and Plan 81yo female with: 1. MDR klebsiella UTI - has received 6 days of ertapenem. Spoke with Dr. Griffin - ertapenem can cause encephalopathy. Thus, Hold ertapenem. pull the henriquez repeat u/a and urine cx for test of cure (obtain urine by I/O method) 2. acute kidney injury in setting of CKD stage 5 - BNONIE resolved. Cr today 3.1, baseline about 3. Nephrology consult appreciated. 3. chronic systolic/diastolic CHF - compensated. Continue beta petra. 4. chronic respiratory failure on home O2 - stable, on baseline home O2. 5. 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 Reeves. spoke with Dr. Reeves 07/18/16 -- stents do not need to be exchanged this admission. Scheduled for such later this month. no clinical signs of obstruction. 6. pulmonary HTN - cause of #4 above. Stable, no issues. 7. DVT proph - heparin BID. 8. chronic anemia - 2nd to CKD stage 5 - repeat CBC stable. 9. hypernatremia - ongoing/worse, due to lack of good oral intake. start D5W and repeat BMP am. 10. deconditioning - PT/OT as tolerated; poor candidate for additional rehab at [facility]. 11. CAD with h/o MT - cont BB, aspirin, plavix, statin. 12. encephalopathy - could be toxic from antibiotics; could be metabolic from high Na. Hydrate with D5W. Hold abx. repeat u/a and urine cx today. no discharge today due to the high Na, confusion, etc extensively updated at bedside today Continued [facility] stay due to: inadequate po fluid intake, voiding difficulties, ambulation difficulties, multiple IV medications needed, other (acute kidney injury ) Discharge planning: other (hopefully home with home health )
[2016-07-19] MEDS: LACTOBACILLUS ACIDOPHILUS (FLORANEX) TAB PO SCH (19:28)
[2016-07-19] MEDS: CLOPIDOGREL BISULFATE 75 MG TAB PO SCH (19:29)
[2016-07-19] MEDS: ASPIRIN 81 MG ECTAB PO SCH (19:29)
[2016-07-19] MEDS: ATORVASTATIN 40 MG TAB PO SCH (19:30)
[2016-07-20] VITALS: O2SAT 97
[2016-07-20 00:55] VITALS: BP 132/71; PULSE 80; TEMP 36.6; O2SAT 97
[2016-07-20] MEDS: HEPARIN SOD 5000 UNIT/0.5 ML CARP SQ SCH ×2 (06:16→17:33)
[2016-07-20] MEDS: CARVEDILOL 25 MG TAB PO SCH ×2 (08:00→21:08)
[2016-07-20 08:19] VITALS: BP 134/59; PULSE 78; TEMP 36.6; O2SAT 98
[2016-07-20 08:36] LABS: BUN/CREATININE RATIO 8.6 (10-20); CALCIUM 8.3 mg/dl (8.5-10.1); CREATININE 3.1 mg/dl (0.60-1.20); POTASSIUM 3.5 mmol/L (3.5-5.1)
[2016-07-20] MEDS: LACTOBACILLUS ACIDOPHILUS (FLORANEX) TAB PO SCH ×3 (08:53→17:33)
[2016-07-20] MEDS: PANTOprazole SOD 40 MG TAB PO SCH (08:54)
[2016-07-20] MEDS: CEROVITE ADV FORMULA TAB PO SCH (08:55)
[2016-07-20] MEDS: NYSTATIN POWDER 15GM BTL EXT SCH ×2 (08:55→21:07)
[2016-07-20] MEDS: CHOLECALCIFEROL 1000 INTER.UNIT TAB PO SCH (08:55)
[2016-07-20] MEDS: LOTEPREDNOL ETABONATE 0.5% OPB SCH (08:57)
--- NOTE | 2016-07-20 11:17 | Nephrology Progress Note ---
Nephrology Progress Note Date of Service Jul 20, 2016. Chief Complaint Follow-up for acute kidney injury, anemia, metabolic acidosis and advanced chronic kidney disease. Subjective Mrs Chase was seen and examined in her room this morning with her at bedside. Her reports still having some confusion but better than last 2 days. She herself denies any symptom and otherwise asymptomatic. P.o. intake continues to be poor. renal function stable, creatinine 3.1 and serum sodium improved to 146. Blood pressure stable. Antibiotic currently pending, waiting on repeat urine culture as there was concern whether Invanz causing the confusion. Review of Systems A complete review of systems was performed. Pertinent positives are noted above. All other systems are negative. Vital Signs Last 8 Hrs Date Time Temp Pulse Resp B/P Pulse Ox O2 Delivery O2 Flow Rate FiO2 07/20/16 08:30 Nasal Cannula 2.0 07/20/16 08:19 36.6 78 18 134/59 98 Room Air I & O 24-Hour Column 07/20/16 08:00 Intake Total 200 ml Output Total 200 ml Balance 0 ml Last Recorded Weight Weight (Kilograms): 70.500 Physical Exam GENERAL: Elderly female, AAA x 3, ill-appearing, not in any distress. NECK: Supple, no JVD. RESPIRATORY: Normal breathing efforts, no accessory muscle use, clear to auscultation bilaterally, no wheezes or rales. CARDIOVASCULAR: S1, S2 normal, rate rhythm regular. EXTREMITY: No lower extremity edema NEURO: speech fluent. PSYCHIATRY: flat affect. Family History Other cardiovascular diseases Negative for CKD / ESRD Social History Smoking Status: Never smoker Drug Use: none Marital Status: Housing Status: lives with family, senior living 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 . Lives in [place], [place] w/ her . Three children. One son developed primary sclerosing cholangitis and required a liver transplant. 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 Her continues to work as a political organizer/inhalation therapy aides teacher. No history of tobacco or alcohol use. Laboratory Results Past 24 Hours 07/20/16 07:40 Test 07/20/16 07:40 Anion Gap 11.0 mmol/L (3-11) Est Creatinine Clear Calc Drug Dose 12.9 ml/min Estimated GFR () 15.4 Estimated GFR (Non- 13.3 BUN/Creatinine Ratio 8.6 (10-20) Calcium Level 8.3 mg/dl (8.5-10.1) Allergies Coded Allergies: Amoxicillin (Verified Allergy, Unknown, UNKNOWN REACTION, 07/13/16) PER PCP RECORDS Clavulanic Acid (Verified Allergy, Unknown, UNKNOWN REACTION, 07/13/16) PER PCP RECORDS Penicillins (Verified Allergy, Unknown, UNKNOWN REACTION, 07/13/16) PER PCP RECORDS Sulfa Antibiotics (Verified Allergy, Unknown, BODY SWELLING,NAUSEA AND VOMITNG, 07/13/16) Medications Current Inpatient Medications Medications (Trade) Dose Ordered Sig/Helder Route Start Time Stop Time Status Last Admin Dose Admin Aspirin (Ecotrin Tab) 81 mg QPM PO 07/13/16 21:00 08/12/16 20:59 07/19/16 19:29 81 MG Atorvastatin Calcium (Lipitor Tab) 80 mg QPM PO 07/13/16 21:00 08/12/16 20:59 07/19/16 19:30 80 MG Carvedilol (Coreg Tab) 25 mg BID PO 07/13/16 20:00 08/12/16 20:59 07/19/16 19:29 25 MG Cholecalciferol (Vitamin D Tab) 1,000 inter.unit DAILY PO 07/14/16 08:00 08/13/16 08:59 07/20/16 08:55 1,000 INTER.UNIT Clopidogrel Bisulfate (plAVix TAB) 75 mg QPM PO 07/13/16 21:00 08/12/16 20:59 07/19/16 19:29 75 MG Lorazepam (Ativan Tab) 0.5 mg Q6H PRN PO 07/13/16 14:15 08/12/16 14:14 07/18/16 10:53 0.5 MG Multivitamins/ Minerals (Multivitamin W/ Minerals Tab) 1 tab QAM PO 07/14/16 08:00 08/13/16 08:59 07/20/16 08:55 1 TAB Nystatin (Mycostatin Powder) 1 appln BID EXT 07/13/16 20:00 08/12/16 20:59 07/20/16 08:55 1 APPLN Ondansetron HCl (Zofran Odt) 4 mg Q6H PRN PO 07/13/16 14:15 08/12/16 14:14 07/19/16 14:44 4 MG Pantoprazole Sodium (Protonix Tab) 40 mg QAM PO 07/14/16 08:00 08/13/16 08:59 07/20/16 08:54 40 MG Febuxostat (Uloric) 40 mg DAILY@1200 PO 07/14/16 12:00 08/13/16 11:59 07/19/16 12:52 40 MG Miscellaneous Information 1 ea 1 ea QS N/A 07/14/16 08:00 08/13/16 07:59 Ertapenem/Sodium Chloride (Invanz Iv/Nss 50ml) 55 ml @ 110 mls/hr DAILY@1400 IV 07/14/16 14:00 07/23/16 13:59 Future Hold 07/18/16 13:29 110 MLS/HR Ondansetron HCl (Zofran Inj) 4 mg Q6H PRN IV 07/13/16 14:15 08/12/16 14:14 Magnesium Hydroxide (Milk Of Magnesia Susp) 30 ml Q6H PRN PO 07/13/16 14:15 08/12/16 14:14 Bisacodyl (Dulcolax Tab) 5 mg DAILY PRN PO 07/13/16 14:15 08/12/16 14:14 Acetaminophen (Tylenol Tab) 650 mg Q4H PRN PO 07/13/16 18:15 08/12/16 18:14 Miscellaneous Information 1 ea UD PRN N/A 07/13/16 16:30 08/12/16 16:29 Loteprednol Etabonate (Lotemax 0.5%) 1 drops QAM OPB 07/14/16 08:00 08/13/16 07:59 07/20/16 08:57 1 DROPS Heparin Sodium (Porcine) (Heparin Sq 5000 Unit/0.5ml) 5,000 unit Q12H SQ 07/17/16 06:00 08/16/16 05:59 07/20/16 06:16 5,000 UNIT Lactobacillus Acidophilus (Floranex Tab) 4 tab TIDM PO 07/19/16 19:00 08/18/16 18:59 07/20/16 08:53 4 TAB Impression (1) Acute kidney injury (2) Chronic kidney disease (3) 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 (4) Ischemic cardiomyopathy (5) Generalized weakness (6) Diabetes (7) Anemia Patient admitted to the hospital for evaluation of management of dehydration and acute on chronic kidney injury. She has chronic bladder inflammation obstructing her ureters. She has had bilateral ureteral stents placed and changed out since 07/02. The patient has suffered from recurrent Klebsiella UTI. H - CKD stage V (ESRD - Baseline creatinine 3.0 w/ EGFR 13 cc/minute. Patient has indicated that she does not want HD if her kidneys fail. 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 difficile colitis, ICM w/ LVEF 25%, moderate MR, pulmonary HTN and moderate TR, AICD placement, hypercholesterolemia, chronic respiratory failure requiring ATC 02, obesity (BMI 32), general debilitated condition Recommendations ACUTE KIDNEY INJURY: -- resolved, Creatinine 3.1 this am, close to baseline. -- encourage p.o. intake -- Monitor serial PRP CHRONIC KIDNEY DISEASE: -- Baseline creatinine 3.0 w/ EGFR 13 cc/min ANEMIA: -- Mild, asymptomatic anemia, stable. Monitor. Had adequate iron store. -- JOURDAN [id number] unit x 1 dose given on 07/16/2016. Hypernatremia: --improving with D5 water which has now stopped, encourage is patient to continue to increased free water intake. Recurrent Klebsiella UTI: Currently Invanz on hold pending repeat urine culture.
[2016-07-20] MEDS: FEBUXOSTAT 40 MG TAB PO SCH (12:13)
[2016-07-20] MEDS: ONDANSETRON 4MG OD TAB PO PRN (12:13)
--- NOTE | 2016-07-20 15:55 | Infectious Disease Progress Nt ---
Progress Note Date of Service Jul 20, 2016. Subjective Pt evaluation today including: conversation w/ patient, physical exam, chart review, lab review, review of studies, conversation w/ solar energy consultant and designer, review of inpatient medication list patient appears improved today. Mental status better. No fever. Follow-up urine culture negative. Creatinine stable at 3.1. All Other Systems: Reviewed and Negative Medications Current Inpatient Medications Medications (Trade) Dose Ordered Sig/Helder Route Start Time Stop Time Status Last Admin Dose Admin Aspirin (Ecotrin Tab) 81 mg QPM PO 07/13/16 21:00 08/12/16 20:59 07/19/16 19:29 81 MG Atorvastatin Calcium (Lipitor Tab) 80 mg QPM PO 07/13/16 21:00 08/12/16 20:59 07/19/16 19:30 80 MG Carvedilol (Coreg Tab) 25 mg BID PO 07/13/16 20:00 08/12/16 20:59 07/19/16 19:29 25 MG Cholecalciferol (Vitamin D Tab) 1,000 inter.unit DAILY PO 07/14/16 08:00 08/13/16 08:59 07/20/16 08:55 1,000 INTER.UNIT Clopidogrel Bisulfate (plAVix TAB) 75 mg QPM PO 07/13/16 21:00 08/12/16 20:59 07/19/16 19:29 75 MG Lorazepam (Ativan Tab) 0.5 mg Q6H PRN PO 07/13/16 14:15 08/12/16 14:14 07/18/16 10:53 0.5 MG Multivitamins/ Minerals (Multivitamin W/ Minerals Tab) 1 tab QAM PO 07/14/16 08:00 08/13/16 08:59 07/20/16 08:55 1 TAB Nystatin (Mycostatin Powder) 1 appln BID EXT 07/13/16 20:00 08/12/16 20:59 07/20/16 08:55 1 APPLN Ondansetron HCl (Zofran Odt) 4 mg Q6H PRN PO 07/13/16 14:15 08/12/16 14:14 07/20/16 12:13 4 MG Pantoprazole Sodium (Protonix Tab) 40 mg QAM PO 07/14/16 08:00 08/13/16 08:59 07/20/16 08:54 40 MG Febuxostat (Uloric) 40 mg DAILY@1200 PO 07/14/16 12:00 08/13/16 11:59 07/20/16 12:13 40 MG Miscellaneous Information 1 ea 1 ea QS N/A 07/14/16 08:00 08/13/16 07:59 Ertapenem/Sodium Chloride (Invanz Iv/Nss 50ml) 55 ml @ 110 mls/hr DAILY@1400 IV 07/14/16 14:00 07/23/16 13:59 Future Hold 07/18/16 13:29 110 MLS/HR Ondansetron HCl (Zofran Inj) 4 mg Q6H PRN IV 07/13/16 14:15 08/12/16 14:14 07/20/16 14:55 4 MG Magnesium Hydroxide (Milk Of Magnesia Susp) 30 ml Q6H PRN PO 07/13/16 14:15 08/12/16 14:14 Bisacodyl (Dulcolax Tab) 5 mg DAILY PRN PO 07/13/16 14:15 08/12/16 14:14 Acetaminophen (Tylenol Tab) 650 mg Q4H PRN PO 07/13/16 18:15 08/12/16 18:14 Miscellaneous Information 1 ea UD PRN N/A 07/13/16 16:30 08/12/16 16:29 Loteprednol Etabonate (Lotemax 0.5%) 1 drops QAM OPB 07/14/16 08:00 08/13/16 07:59 07/20/16 08:57 1 DROPS Heparin Sodium (Porcine) (Heparin Sq 5000 Unit/0.5ml) 5,000 unit Q12H SQ 07/17/16 06:00 08/16/16 05:59 07/20/16 06:16 5,000 UNIT Lactobacillus Acidophilus (Floranex Tab) 4 tab TIDM PO 07/19/16 19:00 08/18/16 18:59 07/20/16 12:13 4 TAB Objective Vital Signs Date Time Temp Pulse Resp B/P Pulse Ox O2 Delivery O2 Flow Rate FiO2 07/20/16 08:30 Nasal Cannula 2.0 07/20/16 08:19 36.6 78 18 134/59 98 Room Air 07/20/16 00:55 36.6 80 18 132/71 97 Room Air 07/20/16 00:00 97 Room Air 07/19/16 16:00 Nasal Cannula 2.0 Physical Exam General Appearance: WD/WN, no apparent distress Eyes: normal inspection, sclerae normal ENT: normal ENT inspection, pharynx normal Neck: supple, no adenopathy, trachea midline Respiratory/Chest: lungs clear, normal breath sounds, no respiratory distress Cardiovascular: regular rate, rhythm, no gallop, no murmur Abdomen: normal bowel sounds, non tender, soft, no organomegaly Extremities: non-tender, no calf tenderness Neurologic/Psychiatric: alert, oriented x 3 Skin: normal color, no rash Laboratory Results RUN DATE: 07/20/16 [facility] LAB PAGE 1 RUN TIME: 1210 Specimen Inquiry PATIENT: ELIEL MIR LOC: [id number] U # : [id number] AGE/SX: 81/F ROOM: [facility] REG : 07/13/[address]: Saul Ward MD : [id number] BED: 1 DIS : STATUS: ADM IN TLOC: SPEC #: [id number] [place]: 07/19/16-UNK STATUS: RES REQ #: [id number] RECD: 07/19/16-8 [facility] [address]: Saul Ward MD SOURCE: URINE CATH ENTR: 07/19/16-1053 [facility] DR: Trav Cohen D.ODm SPDESC: José Luis Griffin MD, Stephen M., M.D. Solic, John, M.D. Thomas, Peter W., D.O. Yingling, Christopher T. M.D. ORDERED: CULTURE UR CATH COMMENTS: Has Specimen Been Obtained/Collected? Y Procedure Result Verified Site URINE CULTURE Preliminary 07/20/16-1210 NO GROWTH - LESS THAN 1,000 COLONIES/ML, Final Report to Follow. Last 24 Hours Test 2//17 07:40 Sodium Level 146 mmol/L Potassium Level 3.5 mmol/L Chloride Level 112 mmol/L Carbon Dioxide Level 23 mmol/L Anion Gap 11.0 mmol/L Blood Urea Nitrogen 27 mg/dl Creatinine 3.10 mg/dl Est Creatinine Clear Calc Drug Dose 12.9 ml/min Estimated GFR () 15.4 Estimated GFR (Non- 13.3 BUN/Creatinine Ratio 8.6 Random Glucose 96 mg/dl Calcium Level 8.3 mg/dl Assessment and Plan patient with acute urinary tract infection with Klebsiella with acute kidney injury as well as mental status changes, Now improving off Invanz with negative follow-up cultures. Think the patient can be followed now off antibiotic therapy, and I will see in the office in the near future.
[2016-07-20 16:15] VITALS: O2SAT 99
[2016-07-20 16:24] VITALS: BP 116/53; PULSE 83; TEMP 36.7; O2SAT 99
--- NOTE | 2016-07-20 20:32 | Progress Note ---
Subjective Date of Service: Jul 20, 2016. Subjective Pt evaluation today including: conversation w/ patient, conversation w/ family ( at bedside ), physical exam, chart review, lab review, review of studies (urine cx), conversation w/ bank consultant (ID, nephrology), review of inpatient medication list Pain: denies abd pain, chest pain, dysuria PO Intake: better today Voiding: incontinence states she is improved w/ her mentation today less "slurry speech" and more awake, alert, and oriented he is pleased w/ her progress today anxious to get her home patient herself denies any abd pain, nausea, emesis, cp, sob she did have diarrhea overnight but improved this am Problem List Medical Problems: (1) Acute on chronic kidney failure Status: Acute (2) Acute renal failure Status: Acute (3) Altered mental status Status: Acute (4) ARF (acute renal failure) Status: Acute (5) CRD (chronic renal disease) Status: Acute (6) Dehydration Status: Acute (7) Dehydration Status: Acute (8) Fever Status: Acute (9) Hyperkalemia Status: Acute (10) PICC (peripherally inserted central catheter) in place Status: Acute (11) Pneumonia Status: Acute (12) Renal failure Status: Acute (13) Renal insufficiency Status: Acute (14) Renal insufficiency Status: Acute (15) Sepsis Status: Acute (16) Sepsis Status: Acute (17) Uremia Status: Acute (18) UTI (urinary tract infection) Status: Acute (19) UTI (urinary tract infection) Status: Acute (20) UTI (urinary tract infection) Status: Acute (21) Weakness Status: Acute (22) Weakness Status: Acute (23) Weakness Status: Acute (24) Weakness Status: Acute (25) Weakness Status: Acute Review of Systems Constitutional: No fever Respiratory: No cough, No shortness of breath Cardiac: No chest pain, No orthopnea Objective Vital Signs Date Time Temp Pulse Resp B/P Pulse Ox O2 Delivery O2 Flow Rate FiO2 07/20/16 16:24 36.7 83 20 116/53 99 Nasal Cannula 2.0 07/20/16 08:30 Nasal Cannula 2.0 07/20/16 08:19 36.6 78 18 134/59 98 Room Air 07/20/16 00:55 36.6 80 18 132/71 97 Room Air 07/20/16 00:00 97 Room Air Physical Exam General Appearance: no apparent distress, + pertinent finding (looks better) ENT: pharynx normal Neck: no JVD Respiratory/Chest: lungs clear, no respiratory distress, no accessory muscle use Cardiovascular: regular rate, rhythm, no gallop, no murmur Abdomen: normal bowel sounds, non tender, soft, no organomegaly Extremities: no pedal edema Neurologic/Psychiatric: alert, oriented x 3 Laboratory Results Last 24 Hours Test 07/20/16 07:40 Sodium Level 146 mmol/L Potassium Level 3.5 mmol/L Chloride Level 112 mmol/L Carbon Dioxide Level 23 mmol/L Anion Gap 11.0 mmol/L Blood Urea Nitrogen 27 mg/dl Creatinine 3.10 mg/dl Est Creatinine Clear Calc Drug Dose 12.9 ml/min Estimated GFR () 15.4 Estimated GFR (Non- 13.3 BUN/Creatinine Ratio 8.6 Random Glucose 96 mg/dl Calcium Level 8.3 mg/dl Assessment and Plan 81yo female with: 1. MDR klebsiella UTI - s/p 6 days of ertapenem. This was stopped due to concern it was contributing to encephalopathy. Repeat URINE CULTURE NEGATIVE. Dr. Griffin recommending we observe OFF OF antibiotics. 2. acute kidney injury in setting of CKD stage 5 - BONNIE resolved. Cr today 3.1, baseline about 3. Nephrology consult appreciated. 3. chronic systolic/diastolic CHF - compensated. 4. chronic respiratory failure on home O2 - stable, on baseline home O2. 5. 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 Reeves. spoke with Dr. Reeves 07/18/16 -- stents do not need to be exchanged this admission. Scheduled for such later this month. no clinical signs of obstruction. 6. pulmonary HTN - Stable, no issues. 7. DVT proph - heparin BID. 8. chronic anemia - 2nd to CKD stage 5 - stable H/H. 9. hypernatremia - improved to 146 today. stop IVF allow PO intake as tolerated 10. CAD with h/o MA - cont BB, aspirin, plavix, statin. 11. encephalopathy - resolved. 12. deconditioning - PT note reviewed; MAX assist just to stand at bedside. participated in this session. We discussed her deconditioning. He is aware it is going to be more challenging at home w/ her weakness. Wishes to stick to primary plan to return home rather than SNF placement. He confirms he has extra help at the home all 7 days of the week. 13. diarrhea - c. diff toxin hopefully home tomorrow Continued [facility] stay due to: ambulation difficulties, other (acute kidney injury ) Discharge planning: home with home health
[2016-07-20 21:06] VITALS: BP 145/60; PULSE 80
[2016-07-20] MEDS: ATORVASTATIN 40 MG TAB PO SCH (21:08)
[2016-07-20] MEDS: ASPIRIN 81 MG ECTAB PO SCH (21:08)
[2016-07-20] MEDS: CLOPIDOGREL BISULFATE 75 MG TAB PO SCH (21:09)
[2016-07-21] VITALS: BP 114/73; PULSE 76; TEMP 36.7; O2SAT 97
[2016-07-21] MEDS: HEPARIN SOD 5000 UNIT/0.5 ML CARP SQ SCH (06:00)
[2016-07-21 07:37] LABS: BUN/CREATININE RATIO 8.2 (10-20); CALCIUM 8.2 mg/dl (8.5-10.1); CREATININE 3.2 mg/dl (0.60-1.20); POTASSIUM 3.6 mmol/L (3.5-5.1)
[2016-07-21 07:43] VITALS: BP 124/56; PULSE 70; TEMP 36.5; O2SAT 98
[2016-07-21] MEDS: NYSTATIN POWDER 15GM BTL EXT SCH (07:59)
[2016-07-21] MEDS: LOTEPREDNOL ETABONATE 0.5% OPB SCH (07:59)
[2016-07-21 08:00] LABS: PHOSPHORUS 3.2 mg/dl (2.5-4.9)
[2016-07-21] MEDS: LACTOBACILLUS ACIDOPHILUS (FLORANEX) TAB PO SCH (08:00)
[2016-07-21] MEDS: CARVEDILOL 25 MG TAB PO SCH (08:00)
[2016-07-21] MEDS: CEROVITE ADV FORMULA TAB PO SCH (08:00)
[2016-07-21] MEDS: PANTOprazole SOD 40 MG TAB PO SCH (08:00)
[2016-07-21] MEDS: CHOLECALCIFEROL 1000 INTER.UNIT TAB PO SCH (08:01)
--- NOTE | 2016-07-21 09:55 | Discharge Instructions ---
Discharge Instructions Admission Reason for Admission: Acute On Chronic Renal Failure, Urinary Tract Infection, Weakness Discharge Discharge Diagnosis / Problem: severe dehydration and urinary tract infection - both resolved. Discharge Goals Goal(s): Learn about illness, Diagnostic testing, Therapeutic intervention Activity Recommendations Activity Limitations: resume your previous activity . Instructions / Follow-Up Instructions / Follow-Up From Dr Ward - When you arrived at [facility] your creatinine (kidney function level) was high at about 6. This was reflective of severe dehydration. It improved to 3.1 prior to going home due to IV fluids. You had a urinary tract infection due to klebsiella that cleared with IV antibiotics. Your sodium level continues to run high, likely due to a lack of enough water on a daily basis. High sodium level is a form of dehydration. At a minimum shoot for 1000cc of liquids per day but preferably closer to 1500cc. You are at risk of additional episodes of your kidney function level going up due to dehydration. All of your other medical problems remained stable during your stay. Follow-up appointments - 1. recommend seeing Dr. Corral within the next week to recheck your electrolytes and kidney function 2. recommend seeing Dr. Griffin within the next week to recheck the status of your recent bladder infection 3. see Dr. Reeves as scheduled later this month for stent exchange Current Hospital Diet Patient's current hospital diet: AHA Diet (Heart Healthy), Renal Diet Discharge Diet Recommended Diet: Renal Diet Pending Studies Studies pending at discharge: no Medical Emergencies . Who to Call and When: Medical Emergencies: If at any time you feel your situation is an emergency, please call 911 immediately. . Non-Emergent Contact Non-Emergency issues call your: Primary Care Provider Call Non-Emergent contact if: temperature is above 100.5, your pain is concerning you, you have any medication questions There is any concern of worsening dehydration, change in mentation, lethargy, vomiting, diarrhea, difficulty breathing, or concerns of recurrent urinary tract infection/bladder infection. . . "Provider Documentation" section prepared by Saul Ward. VTE Core Measure Inpt VTE Proph given/why not?: Ebenezer Ramirez, SCD's
--- NOTE | 2016-07-21 10:03 | DIAGNOSTIC IMAGING REPORT ---
HEAD CT NONCONTRAST CT DOSE: 1375.95 mGy.cm HISTORY: Mental status change eval for any ICH, etc TECHNIQUE: Multiaxial CT images of the head were performed without the use of intravenous contrast. Comparison: 09/11/2015 Findings: The paranasal sinuses and mastoid air cells are clear. Mild cerebral atrophy. Mild to moderate chronic small vessel change of aging. No evidence for an acute intracranial hemorrhage. No midline shift. Impression: Age-related change. No acute process. No change from the prior study. Electronically signed by: Juan José Barrett M.D. 07/21/2016 10:02 AM Dictated Date/Time: 07/21/2016 10:01 AM
[2016-07-21 10:16] VITALS: BP 124/56; PULSE 70; TEMP 36.5; O2SAT 98
--- NOTE | 2016-07-21 10:29 | Progress Note ---
Progress Note 07/21/16 1020 Pt seen/examined. No changes from yesterday. Oral intake (liquids) continues to be poor. Na level of 149 today reflects that. Her Na level has been high since April. LENGTHY discussion held with pt's about her lack of intake and that, most certainly, she will return to the hospital in the near future. She has had multiple admissions this year for acute/chronic renal failure, UTI, dehydration, etc. CT head obtained - no mass, stroke, ICH - contributing to current state. Explained there is no medication we can give to increase her drive to drink. I believe she is simply declining overall. She has become severely debilitated over time and even during this hospital stay her functional status has worsened. I question whether she is fit for home and have recommended SNF placement but the pt's is not agreeable to any other disposition except d/c to home. I believe her will provide the best care possible, but from a functional standpoint she is needing max assist/2+ people to stand. I worry - and I have shared this concern with the - that he will not be able to physically transfer her at the house. He continues to tell me that her drinking and functional status will be better at the house. Again I am not sure if that will come to fruition. Spoke with nephrology regarding her case - no new recommendations at this time. Spoke with case management who will set up transportation. Saul Ward MD
--- NOTE | 2016-07-21 12:03 | Nephrology Progress Note ---
Nephrology Progress Note Date of Service Jul 21, 2016. Chief Complaint Follow-up for acute kidney injury, anemia, metabolic acidosis and advanced chronic kidney disease and hypernatremia. Subjective Mrs Chaes was seen and examined in her room this morning with her and caregiver at bedside. She has been otherwise feeling fine, denies any symptoms but p.o. intake seemed to be poor. Her serum sodium went up again to 149 this morning and with acute confusion and hallucination during this admission, CT scan of head was done this morning for further evaluation which came back as Unremarkable. She was initially scheduled to be discharged at 10 a.m. but which was that delayed due to the them imaging study and patient's was upset at that. Review of Systems A complete review of systems was performed. Pertinent positives are noted above. All other systems are negative. Vital Signs Last 8 Hrs Date Time Temp Pulse Resp B/P Pulse Ox O2 Delivery O2 Flow Rate FiO2 07/21/16 07:43 36.5 70 16 124/56 98 Nasal Cannula 2.0 I & O 24-Hour Column 07/21/16 07:59 Intake Total 100 ml Balance 100 ml Last Recorded Weight Weight (Kilograms): 70.500 Physical Exam GENERAL: Elderly female, AAA x 3, ill-appearing, not in any distress. NECK: Supple, no JVD. RESPIRATORY: Normal breathing efforts, no accessory muscle use, clear to auscultation bilaterally, no wheezes or rales. CARDIOVASCULAR: S1, S2 normal, rate rhythm regular. EXTREMITY: No lower extremity edema NEURO: speech fluent. PSYCHIATRY: flat affect. Family History Other cardiovascular diseases Negative for CKD / ESRD Social History Smoking Status: Never smoker Drug Use: none Marital Status: Housing Status: lives with family, shelter 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 . Lives in [place], [place] w/ her . Three children. One son developed primary sclerosing cholangitis and required a liver transplant. 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 No history of tobacco or alcohol use. Laboratory Results Past 24 Hours 07/21/16 06:37 Test 07/21/16 06:37 Anion Gap 11.0 mmol/L (3-11) Est Creatinine Clear Calc Drug Dose 12.5 ml/min Estimated GFR () 14.8 Estimated GFR (Non- 12.8 BUN/Creatinine Ratio 8.2 (10-20) Calcium Level 8.2 mg/dl (8.5-10.1) Phosphorus Level 3.2 mg/dl (2.5-4.9) Albumin 2.1 gm/dl (3.4-5.0) Allergies Coded Allergies: Amoxicillin (Verified Allergy, Unknown, UNKNOWN REACTION, 07/13/16) PER PCP RECORDS Clavulanic Acid (Verified Allergy, Unknown, UNKNOWN REACTION, 07/13/16) PER PCP RECORDS Penicillins (Verified Allergy, Unknown, UNKNOWN REACTION, 07/13/16) PER PCP RECORDS Sulfa Antibiotics (Verified Allergy, Unknown, BODY SWELLING,NAUSEA AND VOMITNG, 07/13/16) Medications Current Inpatient Medications Medications (Trade) Dose Ordered Sig/Helder Route Start Time Stop Time Status Last Admin Dose Admin Aspirin (Ecotrin Tab) 81 mg QPM PO 07/13/16 21:00 08/12/16 20:59 07/20/16 21:08 81 MG Atorvastatin Calcium (Lipitor Tab) 80 mg QPM PO 07/13/16 21:00 08/12/16 20:59 07/20/16 21:08 80 MG Carvedilol (Coreg Tab) 25 mg BID PO 07/13/16 20:00 08/12/16 20:59 07/21/16 08:00 25 MG Cholecalciferol (Vitamin D Tab) 1,000 inter.unit DAILY PO 07/14/16 08:00 08/13/16 08:59 07/21/16 08:01 1,000 INTER.UNIT Clopidogrel Bisulfate (plAVix TAB) 75 mg QPM PO 07/13/16 21:00 08/12/16 20:59 07/20/16 21:09 75 MG Lorazepam (Ativan Tab) 0.5 mg Q6H PRN PO 07/13/16 14:15 08/12/16 14:14 07/18/16 10:53 0.5 MG Multivitamins/ Minerals (Multivitamin W/ Minerals Tab) 1 tab QAM PO 07/14/16 08:00 08/13/16 08:59 07/21/16 08:00 1 TAB Nystatin (Mycostatin Powder) 1 appln BID EXT 07/13/16 20:00 08/12/16 20:59 07/21/16 07:59 1 APPLN Ondansetron HCl (Zofran Odt) 4 mg Q6H PRN PO 07/13/16 14:15 08/12/16 14:14 07/20/16 12:13 4 MG Pantoprazole Sodium (Protonix Tab) 40 mg QAM PO 07/14/16 08:00 08/13/16 08:59 07/21/16 08:00 40 MG Febuxostat (Uloric) 40 mg DAILY@1200 PO 07/14/16 12:00 08/13/16 11:59 07/20/16 12:13 40 MG Miscellaneous Information 1 ea 1 ea QS N/A 07/14/16 08:00 08/13/16 07:59 Ertapenem/Sodium Chloride (Invanz Iv/Nss 50ml) 55 ml @ 110 mls/hr DAILY@1400 IV 07/14/16 14:00 07/23/16 13:59 Future Hold 07/18/16 13:29 110 MLS/HR Ondansetron HCl (Zofran Inj) 4 mg Q6H PRN IV 07/13/16 14:15 08/12/16 14:14 07/20/16 14:55 4 MG Magnesium Hydroxide (Milk Of Magnesia Susp) 30 ml Q6H PRN PO 07/13/16 14:15 08/12/16 14:14 Bisacodyl (Dulcolax Tab) 5 mg DAILY PRN PO 07/13/16 14:15 08/12/16 14:14 Acetaminophen (Tylenol Tab) 650 mg Q4H PRN PO 07/13/16 18:15 08/12/16 18:14 Miscellaneous Information 1 ea UD PRN N/A 07/13/16 16:30 08/12/16 16:29 Loteprednol Etabonate (Lotemax 0.5%) 1 drops QAM OPB 07/14/16 08:00 08/13/16 07:59 07/21/16 07:59 1 DROPS Heparin Sodium (Porcine) (Heparin Sq 5000 Unit/0.5ml) 5,000 unit Q12H SQ 07/17/16 06:00 08/16/16 05:59 07/20/16 17:33 5,000 UNIT Lactobacillus Acidophilus (Floranex Tab) 4 tab TIDM PO 07/19/16 19:00 08/18/16 18:59 07/21/16 08:00 4 TAB Impression (1) Acute kidney injury (2) Chronic kidney disease (3) 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 (4) Ischemic cardiomyopathy (5) Generalized weakness (6) Diabetes (7) Anemia Patient admitted to the hospital for evaluation of management of dehydration and acute on chronic kidney injury. She has chronic bladder inflammation obstructing her ureters. She has had bilateral ureteral stents placed and changed out since 07/02. The patient has suffered from recurrent Klebsiella UTI. PMH - CKD stage V (ESRD - Baseline creatinine 3.0 w/ EGFR 13 cc/minute. Patient has indicated that she does not want HD if her kidneys fail. This would not provide her with quality of life), UVJ obstruction s/p bilateral ureteral stent placement 07/01, urinary and fecal incontinence, interstitial cystitis, recurrent cystitis with [id number] Klebsiella, recurrent C. difficile colitis, ICM w/ LVEF 25%, moderate MR, pulmonary HTN and moderate TR, AICD placement, hypercholesterolemia, chronic respiratory failure requiring ATC 02, obesity (BMI 32), general debilitated condition Recommendations ACUTE KIDNEY INJURY: -- resolved, Creatinine 3.1 this am, close to baseline. -- encourage p.o. intake CHRONIC KIDNEY DISEASE: -- Baseline creatinine 3.0 w/ EGFR 13 cc/min ANEMIA: -- Mild, asymptomatic anemia, stable. Monitor. Had adequate iron store. -- JOURDAN 28611 unit x 1 dose given on 07/16/2016. Hypernatremia: -- improved with D5 water but again worsened this morning. Prior record review showed she has been having recurrent episode of hypernatremia of for last few months and during this admission with acute confusion and hallucination, CT scan of head was done which was unremarkable. -- Recurrent hyponatremia most likely secondary to impaired concentrating ability due to stage 5 chronic kidney disease. -- Patient is at risk for recurrent hypernatremia as she does not feel thirsty and have with her chronic poor performance status she herself does not drink much. Explained to the and that at home will need to make sure that her free water intake is adequate to avoid hypernatremia. explained that Dysnatremia is a very common complication with advanced CKD and itelf is a poor prognostic sign. Recurrent Klebsiella UTI: Antibiotic was discontinued before discharge as repeat urine culture was negative..
--- NOTE | 2016-07-21 23:24 | Discharge Summary ---
Discharge Summary Admission Date: Jul 13, 2016 at 14:22 Discharge Date: Jul 21, 2016 Discharge Disposition: Home with services Principal Diagnosis: MDR klebsiella UTI Problems/Secondary Diagnoses: 1. acute kidney injury in the setting of CKD stage 5 2. hypernatremia 3. protein calorie malnutrition, mild-moderate 4. chronic respiratory failure on home O2 5. pulmonary HTN 6. CAD 7. chronic systolic/diastolic CHF 8. severe deconditioning 9. h/o recurrent UTI 10. hyperlipidemia 11. 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 h/o c. diff colitis 13. h/o interstitial cystitis 14. AICD status 15. metabolic and/or toxic encephalopathy - resolved 16. anemia of chronic disease 17. antibiotic-associated diarrhea Immunizations: Have You Had Influenza Vaccine: Yes Influenza Vaccine Date: Mar 17, 2010 History of Tetanus Vaccine?: No History of Pneumococcal: No Pneumococcal Date: Jun 06, 2011 History of Hepatitis B Vaccine: No Procedures: 1. b/l lower extremity venous doppler negative for DVT 2. CT head - atrophy, no ICH, mass, or stroke Consultations: 1. infectious disease - José Luis Griffin MD 2. nephrology - Thai Corral MD 3. PT, OT 4. social work Medication Reconciliation Continued Medications: Acetaminophen Tab (Tylenol) 325 Mg Tab 650 MG PO Q4H PRN for Pain or Fever NEEDED FOR TEMPERATURE 100.4 F AND ABOVE. DO NOT EXCEED 3000 MG APAP/24 HOURS. Aspirin (Aspirin) 81 Mg Tab 81 MG PO QPM Atorvastatin (Lipitor) 80 Mg Tab 80 MG PO QPM Carvedilol (Carvedilol) 25 Mg Tab 25 MG PO BID Cholecalciferol (Vitamin D3) 1,000 Unit Tab 1 TAB PO DAILY for 90 Days, #90 TAB 3 Refills Clopidogrel Bisulfate (Clopidogrel) 75 Mg Tab 75 MG PO QPM Febuxostat (Uloric) 40 Mg Tab 40 MG PO NOON TAKE THIS MEDICATION DAILY WITH LUNCH Ketoconazole (Bulk) (Ketoconazole) 1 Pow Pow 1 DOSE TOP QAM PRN for affected area Lorazepam (Ativan) 0.5 Mg Tab 0.5 MG PO Q6H PRN for Anxiety, TAB Loteprednol Etabonate (Lotemax) 0.5 % Gel 1 DROP OPB QAM Multiple Vitamins W/ Minerals (Centrum Silver Ultra Wome) 1 Tab Tab 1 TAB PO QAM Nystatin (Nystop) 45 Appln/15 Gm Powd 1 DOSE TOP BID Ondasetron Odt (Zofran Odt) 4 Mg Tab 4 MG PO Q6H PRN for Nausea Pantoprazole (Pantoprazole Sodium) 40 Mg Tab 40 MG PO QAM Probiotic Product (Probiotic) 1 Cap Cap 1 TAB PO NOON Referrals At Discharge Follow up Referrals: Infectious Disease - Within 1 Week with José Luis Griffin MD [employer] Referral - Within 1 Week with Thai Corral M.D. Urologist Referral - Within a Month with Hardeep Reeves M.D. Discharge Exam Physical Exam: General Appearance: no apparent distress ENT: pharynx normal Neck: no JVD Respiratory/Chest: lungs clear, no respiratory distress, no accessory muscle use Cardiovascular: regular rate, rhythm, no gallop, no murmur, normal peripheral pulses, + friction rub Abdomen / GI: normal bowel sounds, non tender, soft, no organomegaly Extremities: no pedal edema Neurologic/Psychiatric: alert, oriented x 3 Hospital Course HISTORY OF PRESENT ILLNESS: Patient is an 81yo female with PMHx of recurrent UTI, CKD V, HTN, chronic systolic CHF, CAD, pulmonary HTN, chronic respiratory failure on home O2, and hyperlipidemia who presented to the ED from referral by [facility] because of progressive bilateral leg weakness and UTI. Urine culture on 07/11 grew Klebsiella pneumoniae. Per patient, her only complaint was that of progressive weakness over the last few days prior to admission. Patient was admitted late May 2016 for similar symptoms of UTI and progressive weakness. Patient denied any fever, chills, sweats, lightheadedness, dizziness , vision changes, CP, palpitations, edema, SOB, wheezing, cough, abdominal pain , nausea, vomiting, diarrhea, urinary symptoms, melena, numbness/tingling, muscle/joint pain, anxiety/depression, active bleeding, or new skin discoloration/changes. HOSPITAL COURSE: At the time of hospital admission Ms. Chase had evidence of BONNIE / acute on chronic renal failure with creatinine of 6. Her weakness was thought 2nd to the MDR klebsiella UTI as well as her BONNIE. She was started on ertapenem for the UTI as well as gentle hydration. Over time her renal function improved. Creatinine on day of discharge was 3.2 and had been stable at this level for 2 days prior to discharge. Later on in her course she developed mild encephalopathy. It was felt that her confusion could have been secondary to the ertapenem. Thus, the ertapenem was stopped after [address] Griffin concurred with stopping the ertapenem. Her mentation did improve with discontinuation of the antibiotics. A repeat urine culture after the ertapenem was stopped returned NEGATIVE and thus Dr. Griffin recommended no additional antibiotics at discharge. Throughout her stay the patient suffered from hypernatremia. A review of the EMR shows she has had persistent hypernatremia since fall 2015. After stopping IV fluids on 2 occasions this admission her sodium level would quickly rise. It was suspected the hypernatremia was simply due to poor oral liquid intake. Diabetes insipidus was not suspected. CT head did not show any gross abnormalities (except for atrophy). On day of discharge her sodium level was 149. We had a lengthy discussion with the patient's with respect to her overall care plan. We expressed concerns about her lack of adequate oral intake as well as her severe deconditioning (the patient could only stand briefly at bedside, requiring 2+ assist to do so). SNF placement was recommended. Her quickly declined such, stating that his would eat/drink better at home and that her physical conditioning would be better at home as well. Again we expressed concerns that she was at high risk of readmission to the hospital (she has had numerous readmissions this year for similar circumstances) and that the likelihood of significant improvement at home was very low. He insisted on her returning home despite the sodium issue as well as the deconditioning problem. The patient will follow-up with Dr. Corral and Dr. Griffin from nephrology & ID, respectively, in the week following discharge. She already has scheduled follow-up with Dr. Reeves later in July for ureteral stent exchange. Strongly consider palliative care consultation in the near future if readmissions continue, she has ongoing physical decline (I suspect this will continue), etc. Total Time Spent: Greater than 30 minutes This includes examination of the patient, discharge planning, medication reconciliation, and communication with other providers. Discharge Instructions Please refer to the electronic Patient Visit Report (Discharge Instructions) for additional information. Follow-Up 1. see Dr. Griffin, infectious disease, within [address] Corral, nephrology, within [address] Reeves, urology, later in July 2016 for ureteral stent exchange Additional Copies To José Luis Griffin MD; Thai Corral M.D.; Jan Cervantes M.D.; Hardeep Reeves M.D.
[2016-08-13] MEDS ORDERED: ERTA1INJ IV (10:46)
[2016-10-16] MEDS ORDERED: CRANBERRY PO (12:34)
[2016-11-05] MEDS ORDERED: CARV12.52 PO (08:41)
[2016-12-04] MEDS ORDERED: METR-162 PO (09:01)
[2016-12-04] MEDS ORDERED: CPR500 PO (09:01)
== END 2016-07-21 11:20 | disposition home health service (06) | DRG 682 ==
LOC: ENRESERVDT → ENRESERVTM → EDBD 11:26 → C.EDC 11:27 → C.MS4W 14:22
PROVIDERS: ADMIT Internal Medicine; ATTEND Internal Medicine
DX: N17.9 Acute kidney failure, unspecified (principal); G93.41 Metabolic encephalopathy; N39.0 Urinary tract infection, site not specified; E87.2 Acidosis; I12.0 Hypertensive chronic kidney disease with stage 5 chronic kidney disease or end stage renal disease; I50.42 Chronic combined systolic (congestive) and diastolic (congestive) heart failure; J96.10 Chronic respiratory failure, unspecified whether with hypoxia or hypercapnia; E87.0 Hyperosmolality and hypernatremia; E44.0 Moderate protein-calorie malnutrition; N18.5 Chronic kidney disease, stage 5; B96.1 Klebsiella pneumoniae [K. pneumoniae] as the cause of diseases classified elsewhere; E78.5 Hyperlipidemia, unspecified; E11.22 Type 2 diabetes mellitus with diabetic chronic kidney disease; I25.10 Atherosclerotic heart disease of native coronary artery without angina pectoris; D63.1 Anemia in chronic kidney disease; R19.7 Diarrhea, unspecified; I25.2 Old myocardial infarction; I27.2 Other secondary pulmonary hypertension; Z79.82 Long term (current) use of aspirin; Z79.899 Other long term (current) drug therapy; T36.95XA Adverse effect of unspecified systemic antibiotic, initial encounter

== ENCOUNTER → 2016-08-01 | Outpatient (CLI) | payer MEDICARE ==
[~2016-08-01] MED LIST changes: +CARV12.52 PO; +CEFD1CAP14 PO; +CHOL1000 PO; -CIPR-255 PO; +COCO1OIL2 PO; +CPR500 PO; +CRAN1TAB PO; +CRANBERRY PO; -DOXY-300 PO; +ERTA1INJ IV; +FURO-85 PO; -KFL500 PO; -MELA1TAB5 PO; +METR-162 PO; +SODI650T8 PO
[2016-08-01 12:50] LABS: BASO % 0.3 %; BASO ABS # 0.02 K/uL (0-0.2); COMPLETE YES; EOS % 2.5 %; HEMATOCRIT 30.1 % (37-47); IG% 1.5 %; LYMPH % 27.3 %; LYMPH ABS # 1.63 K/uL (1.2-3.4); MEAN CELL VOLUME 100.3 fL (80-100); MEAN CORPUSCULAR HEMOGLOBIN 31.3 pg (25-34); MEAN CORPUSCULAR HGB CONC 31.2 g/dl (32-36); MEAN PLATELET VOLUME 9.6 fL (7.4-10.4); MONO % 6.2 %; NEUT % 62.2 %; PLATELET COUNT 149 K/uL (130-400); WHITE BLOOD COUNT 5.98 K/uL (4.8-10.8)
[2016-08-01 13:19] LABS: ALT/SGPT 16 U/L (12-78); BLOOD UREA NITROGEN 53 mg/dl (7-18); BUN/CREATININE RATIO 17.2 (10-20); CALCIUM 8.6 mg/dl (8.5-10.1); CARBON DIOXIDE 20 mmol/L (21-32); CHLORIDE 113 mmol/L (98-107); GLUCOSE 94 mg/dl (70-99); POTASSIUM 5.6 mmol/L (3.5-5.1); SODIUM 144 mmol/L (136-145)
[2016-08-01 13:22] LABS: ALB/GLOB RATIO 0.6 (0.9-2); ALKALINE PHOSPHATASE 80 U/L (45-117); AST/SGOT 22 U/L (15-37)
== END | disposition home or self-care (01) ==
LOC: C.LAB1850 11:34
PROVIDERS: ATTEND Internal Medicine Infectious Disease
DX: E78.5 Hyperlipidemia, unspecified (principal); N18.4 Chronic kidney disease, stage 4 (severe); I12.9 Hypertensive chronic kidney disease with stage 1 through stage 4 chronic kidney disease, or unspecified chronic kidney disease; R19.7 Diarrhea, unspecified

== ENCOUNTER 2016-08-05 16:49 | Inpatient (IN) | payer MEDICARE, OTHER ==
[~2016-08-05] VITALS: Ht 162.6 cm; Wt 71.8 kg
[~2016-08-05 16:49] MED LIST changes: -CARV12.52 PO; -CEFD1CAP14 PO; -COCO1OIL2 PO; -CPR500 PO; -CRAN1TAB PO; -CRANBERRY PO; -ERTA1INJ IV; -FURO-85 PO; -METR-162 PO; -SODI650T8 PO; -VANC5CAP PO
--- NOTE | 2016-08-05 17:01 | EMERGENCY ROOM VISIT NOTE ---
History Report prepared by Harrison: Jameel Gutierrez Under the Supervision of: Dr. Michael Melendez M.D. First contact with patient: 16:52 Stated Complaint: WEAKNESS/POSS. UTI History of Present Illness The patient is an 81 year old female who presents to the Emergency Room with complaints of persistent weakness that started prior to arrival today. Per the patient's , the patient was admitted here for a UTI a few weeks ago. Prior to arrival today, the patient collapsed on the floor, and has no strength in her limbs. She has also been having loose stools. The patient has been incontinent. Any fevers, headaches, pain, cough, shortness of breath, hallucinations, or confusion was denied. The patient is taking 125 mg of Vancomycin to prevent C difficile. She was taking 2 preventative antibiotics, but they did not work. Source of History: patient, spouse/significant other Onset: Prior to arrival today Position: other (global - weakness) Timing: other (persistent) Associated Symptoms: + urinary symptoms (incontinence), No SOB, No cough, No fevers, No headache Note: Associated symptoms: Collapsed on floor with no strength in limbs. Denies pain, hallucinations, confusion. Review of Systems See HPI for pertinent positives & negatives. A total of 10 systems reviewed and were otherwise negative. Past Medical & Surgical Medical Problems: (1) Acute hypernatremia (2) Acute kidney injury (3) Acute on chronic renal failure (4) Acute renal failure superimposed on stage 4 chronic kidney disease (5) Acute urinary tract infection (6) Anemia (7) Benign hypertension (8) Cardiac catheterization (9) CHF (congestive heart failure) (10) CHF (congestive heart failure) (11) Cholecystectomy (12) Chronic kidney disease (13) CKD (chronic kidney disease) stage 5, GFR less than 15 ml/min (14) Coronary artery disease (15) Dehydration (16) Diabetes (17) Ischemic cardiomyopathy (18) Metabolic acidosis (19) Metabolic acidosis with increased anion gap and reduced excretion of inorganic acids (20) Myocardial infarction (21) Pneumonia (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 (23) Recurrent UTI (24) Secondary hyperparathyroidism of renal origin (25) Sepsis (26) Sepsis due to Klebsiella (27) sepsis recurrent UTI BONNIE on ckd (28) Systolic CHF (29) UTI (urinary tract infection) (30) UTI (urinary tract infection) (31) UTI (urinary tract infection) (32) Weakness Surgical Problems: (1) History of cholecystectomy (2) History of ureter stent Family History Other cardiovascular diseases Social History Smoking Status: Never Smoker Alcohol Use: none Drug Use: none Marital Status: Housing Status: lives with significant other Occupation Status: retired Current/Historical Medications Scheduled Aspirin (Aspirin), 81 MG PO QPM Atorvastatin (Lipitor), 80 MG PO QPM Carvedilol (Carvedilol), 25 MG PO BID Cholecalciferol (Vitamin D3), 1 TAB PO DAILY Clopidogrel Bisulfate (Clopidogrel), 75 MG PO QPM Febuxostat (Uloric), 40 MG PO NOON Loteprednol Etabonate (Lotemax), 1 DROP OPB QAM Multiple Vitamins W/ Minerals (Centrum Silver Ultra Wome), 1 TAB PO QAM Nystatin (Nystop), 1 DOSE TOP BID Pantoprazole (Pantoprazole Sodium), 40 MG PO QAM Probiotic Product (Probiotic), 1 TAB PO NOON Vancomycin Hcl (Vancomycin), 125 MG PO QAM Scheduled PRN Lorazepam (Ativan), 0.5 MG PO Q6H PRN for Anxiety Ondasetron Odt (Zofran Odt), 4 MG PO Q6H PRN for Nausea Allergies Coded Allergies: Amoxicillin (Verified Allergy, Unknown, UNKNOWN REACTION, 08/05/16) PER PCP RECORDS Clavulanic Acid (Verified Allergy, Unknown, UNKNOWN REACTION, 08/05/16) PER PCP RECORDS Penicillins (Verified Allergy, Unknown, UNKNOWN REACTION, 08/05/16) PER PCP RECORDS Sulfa Antibiotics (Verified Allergy, Unknown, BODY SWELLING,NAUSEA AND VOMITNG, 08/05/16) Physical Exam Vital Signs Date Time Temp Pulse Resp B/P Pulse Ox O2 Delivery O2 Flow Rate FiO2 08/05/16 20:20 90 24 122/58 100 Room Air 08/05/16 19:00 93 22 138/70 98 Nasal Cannula 2.0 08/05/16 19:00 96 18 138/70 97 Room Air 08/05/16 17:09 93 08/05/16 17:00 37.4 94 24 151/74 96 Room Air Physical Exam GENERAL: Patient is tired appearing and in no distress. HEENT: No acute trauma, normocephalic atraumatic, mucous membranes moist, no nasal congestion, no scleral icterus. Cloudy right cornea (chronic). NECK: No stridor, no adenopathy, no meningismus, trachea is midline. LUNGS: No dyspnea. Clear to auscultation and equal bilaterally. No wheeze, no rhonchi. HEART: Regular rate and rhythm. No murmurs, rubs, gallops appreciated. ABDOMEN: Soft, nontender, bowel sounds positive, no masses appreciated, no peritonitis. BACK: No midline tenderness, no CVA tenderness EXTREMITIES: Normal motion all extremities, no cyanosis, no edema. NEUROLOGIC: Alert and oriented, no acute motor or sensory deficits, no focal weakness, cranial nerves grossly intact. SKIN: No rash, no jaundice, no diaphoresis. Medical Decision & Procedures ER Provider Diagnostic Interpretation: X ray results are stated below per my interpretation and the radiologist's interpretation. CHEST ONE VIEW PORTABLE CLINICAL HISTORY: Generalized Weakness dyspnea COMPARISON STUDY: 06/09/2016 FINDINGS: Mild stable cardiomegaly. Cardiac pacemaker/defibrillator is unchanged in position. Lungs are considered clear. Minimal scarring left lateral calcific angle. IMPRESSION: Chronic and postoperative change. No acute process. Electronically signed by: Juan José Barrett M.D. 08/05/2016 5:25 PM Dictated Date/Time: 08/05/2016 5:24 PM Laboratory Results 08/05/16 18:23 Red Blood Count 3.04, Mean Corpuscular Volume 100.7, Mean Corpuscular Hemoglobin 30.9, Mean Corpuscular Hemoglobin Concent 30.7, Mean Platelet Volume 9.2 Test 08/05/16 18:23 08/05/16 18:35 08/05/16 20:59 White Blood Count 10.73 K/uL (4.8-10.8) Red Blood Count 3.04 M/uL (4.2-5.4) Hemoglobin 9.4 g/dL (12.0-16.0) Hematocrit 30.6 % (37-47) Mean Corpuscular Volume 100.7 fL (80-100) Mean Corpuscular Hemoglobin 30.9 pg (25-34) Mean Corpuscular Hemoglobin Concent 30.7 g/dl (32-36) Platelet Count 200 K/uL (130-400) Mean Platelet Volume 9.2 fL (7.4-10.4) RDW Standard Deviation 59.2 fL (36.4-46.3) RDW Coefficient of Variation 16.2 % (11.5-14.5) Neutrophils % (Manual) 69.2 % Lymphocytes % (Manual) 7.0 % Variant Lymphocytes % (manual) 12.3 % Monocytes % (Manual) 7.0 % Eosinophils % (Manual) 1.8 % Basophils % (Manual) 0.9 % Myelocytes % 1.8 % Neutrophils # (Manual) 7.43 K/uL (1.4-6.5) Total Absolute Neutrophils 7.43 K/uL (1.4-6.5) Lymphocytes # (Manual) 0.75 K/uL (1.2-3.4) Absolute Variant Lymphocytes 1.32 K/uL Total Absolute Lymphocytes 2.07 K/uL (1.2-3.4) Monocytes # (Manual) 0.75 K/uL (0.11-0.59) Eosinophils # (Manual) 0.19 K/uL (0-0.5) Basophils # (Manual) 0.10 K/uL (0-0.2) Myelocytes # 0.19 K/uL (0-0) Anisocytosis PRESENT Prothrombin Time 12.4 SECONDS (9.0-12.0) Prothromb Time International Ratio 1.2 (0.9-1.1) Activated Partial Thromboplast Time 28.5 SECONDS (21.0-31.0) Partial Thromboplastin Ratio 1.1 Est Creatinine Clear Calc Drug Dose 10.7 ml/min Phosphorus Level 2.9 mg/dl (2.5-4.9) Magnesium Level 1.3 mg/dl (1.8-2.4) Total Bilirubin 0.3 mg/dl (0.2-1) Direct Bilirubin < 0.1 mg/dl (0-0.2) Aspartate Amino Transf (AST/SGOT) 27 U/L (15-37) Alanine Aminotransferase (ALT/SGPT) 31 U/L (12-78) Alkaline Phosphatase 83 U/L (45-117) Total Creatine Kinase 23 U/L (26-192) Creatine Kinase MB 0.7 ng/ml (0.5-3.6) Creatine Kinase MB Ratio 3.0 (0-3.0) Troponin I < 0.015 ng/ml (0-0.045) Total Protein 7.3 gm/dl (6.4-8.2) Albumin 2.6 gm/dl (3.4-5.0) Lipase 216 U/L (73-393) Urine Color ORANGE Urine Appearance TURBID (CLEAR) Urine pH 6.5 (4.5-7.5) Urine Specific Morning Sun 1.011 (1.000-1.030) Urine Protein 2+ (NEG) Urine Glucose (UA) NEG (NEG) Urine Ketones NEG (NEG) Urine Occult Blood 3+ (NEG) Urine Nitrite POS (NEG) Urine Bilirubin NEG (NEG) Urine Urobilinogen NEG (NEG) Urine Leukocyte Esterase LARGE (NEG) Urine WBC (Auto) >30 /hpf (0-5) Urine RBC (Auto) >30 /hpf (0-4) Urine Hyaline Casts (Auto) 5-10 /lpf (0-5) Urine Epithelial Cells (Auto) 10-20 /lpf (0-5) Urine Bacteria (Auto) NEG (NEG) Urine Yeast (Auto) (NONE PRSENT) Laboratory results as reviewed by me. Medications Administered Medications (Trade) Dose Ordered Sig/Helder Route Start Time Stop Time Status Last Admin Dose Admin Sodium Chloride (Nss 1000ml) 1,000 ml @ 999 mls/hr Q1H1M STAT IV 08/05/16 19:48 08/05/16 20:48 DC 08/05/16 20:09 999 MLS/HR ECG Indication: weakness Rate (beats per minute): 97 Rhythm: normal sinus Findings: T-wave inversion (in lead 1), no acute ischemic change, no ectopy ED Course 1653: The patient was evaluated in room B4B. A complete history and physical exam was performed. 1812: I reevaluated the patient and she just got her IV in, but has not gotten her urine yet. 1944: I reevaluated the patient and she is resting comfortably. The patient verbally expressed understanding and agreement of the treatment plan. The patient will be evaluated for further treatment. 1944: Ordered Invanz IV 1 gm IV. 1947: Ordered NSS 1000 ml @ 999 mls/hr IV. 2019: I discussed the patient with Dr. Banda - [facility] [place] - he will evaluate the patient for further treatment. He did ask that we repeat the BMP. Medical Decision Differential: Sepsis, Infectious (UTI/Pneumonia/Meningitis/etc), Metabolic/ Electrolyte Abnormality, Cardiac, Hepatic, Endocrine, Toxicologic, Neurologic, amongst other pathologies entertained. 81 yr old female with acute worsening of mental status and weakness over last day consistent with her previous UTI's. She has known MDR Klebsiella on previous admission. Currently off abx. K is mildly elevated though lab notes significant difficulty obtaining thus may just be hemolyzed. Will given 1 NSS and repeat BMP as no cardiac ekg findings. She has no fevers nor acute sepsis. Chronic renal failure noted similar to previous. Given Invanz as one of few meds previously bug susceptible. Consults Time Called: 1999 Consulting Physician: Dr. Veronika LOPEZ hospitalist Returned Call: 2019 I discussed the patient with Dr. Veronika LOPEZ hospitalist - he will evaluate the patient for further treatment. He did ask that we repeat the BMP. Impression Primary Impression: Altered mental status Additional Impressions: UTI (urinary tract infection) Hypomagnesemia Scribe Attestation The scribe's documentation has been prepared under my direction and personally reviewed by me in its entirety. I confirm that the note above accurately reflects all work, treatment, procedures, and medical decision making performed by me. Departure Information Dispostion Being Evaluated By Hospitalist Referrals Jan Cervantes M.D. (PCP) Problem Qualifiers Primary Impression: Altered mental status Altered mental status type: disorientation Qualified Codes: R41.0 - Disorientation, unspecified Additional Impressions: UTI (urinary tract infection) Urinary tract infection type: acute cystitis Hematuria presence: with hematuria Qualified Codes: N30.01 - Acute cystitis with hematuria
--- NOTE | 2016-08-05 17:26 | DIAGNOSTIC IMAGING REPORT ---
CHEST ONE VIEW PORTABLE CLINICAL HISTORY: Generalized Weakness dyspnea COMPARISON STUDY: 06/09/2016 FINDINGS: Mild stable cardiomegaly. Cardiac pacemaker/defibrillator is unchanged in position. Lungs are considered clear. Minimal scarring left lateral calcific angle. IMPRESSION: Chronic and postoperative change. No acute process. Electronically signed by: Juan José Barrett M.D. 08/05/2016 5:25 PM Dictated Date/Time: 08/05/2016 5:24 PM
[2016-08-05 18:39] LABS: HEMATOCRIT 30.6 % (37-47); MEAN CELL VOLUME 100.7 fL (80-100); MEAN CORPUSCULAR HEMOGLOBIN 30.9 pg (25-34); MEAN CORPUSCULAR HGB CONC 30.7 g/dl (32-36); MEAN PLATELET VOLUME 9.2 fL (7.4-10.4); PLATELET COUNT 200 K/uL (130-400); RED BLOOD COUNT 3.04 M/uL (4.2-5.4); WHITE BLOOD COUNT 10.73 K/uL (4.8-10.8)
[2016-08-05 18:49] LABS: URINE APPEARANCE TURBID (CLEAR); URINE BILIRUBIN NEG (NEG); URINE COLOR ORANGE; URINE NITRITE POS (NEG); URINE PH 6.5 (4.5-7.5); URINE SPECIFIC GRAVITY 1.011 (1.000-1.030); UROBILINOGEN NEG (NEG); ZZURINE CULT IF INDIC CATH YES
[2016-08-05 18:55] LABS: MANUAL MICROSCOPIC REQUIRED? NO; REVIEW REQ? YES
[2016-08-05 18:58] LABS: BLOOD UREA NITROGEN 62 mg/dl (7-18); GLUCOSE 119 mg/dl (70-99)
[2016-08-05 18:59] LABS: ALT/SGPT 31 U/L (12-78); BUN/CREATININE RATIO 17.2 (10-20); CALCIUM 8.7 mg/dl (8.5-10.1); CARBON DIOXIDE 18 mmol/L (21-32); CHLORIDE 114 mmol/L (98-107); MAGNESIUM 1.3 mg/dl (1.8-2.4); SODIUM 145 mmol/L (136-145)
[2016-08-05 19:00] LABS: ANISOCYTOSIS PRESENT; BASOPHIL % 0.9 %; COMPLETE YES; EOSINOPHIL % 1.8 %; LYMPH ABS # 0.75 K/uL (1.2-3.4); MYELOCYTE % 1.8 %; NEUTROPHILS % 69.2 %; VARIANT LYM ABS # 1.32 K/uL; VARIANT LYMPHOCYTE % 12.3 %
[2016-08-05 19:02] LABS: ALKALINE PHOSPHATASE 83 U/L (45-117); AST/SGOT 27 U/L (15-37); INR 1.2 (0.9-1.1); PARTIAL THROMBOPLASTIN RATIO 1.1; PHOSPHORUS 2.9 mg/dl (2.5-4.9); PROTHROMBIN TIME (PATIENT) 12.4 SECONDS (9.0-12.0)
[2016-08-05] MEDS ORDERED: ERTAPENEM 1 GM ADDVIAL IV ONE (19:45)
[2016-08-05] MEDS ORDERED: SODIUM CHLORIDE 0.9% 1000ML 1,000 ML IV STA (19:48)
[2016-08-05] MEDS ORDERED: VANC5CAP PO (20:27)
[2016-08-05] MEDS ORDERED: ALUMINUM/MAGNESIUM/SIMETH (MAALOX MAX) 30 ML UDC PO PRN (21:00)
[2016-08-05] MEDS ORDERED: NITROGLYCERIN 0.4 MG SL PER TAB CHARGE SL PRN (21:00)
[2016-08-05] MEDS ORDERED: ACETAMINOPHEN 325 MG TAB PO PRN (21:00)
[2016-08-05] MEDS ORDERED: POLYETHYLENE (MIRALAX) 17 GM PACK PO PRN (21:00)
[2016-08-05] MEDS ORDERED: MAGNESIUM HYDROXIDE SUSP 30 ML UDC PO PRN (21:00)
[2016-08-05] MEDS ORDERED: ERTAPENEM IV 1 GM in SODIUM CHLOR 0.9% AD-VAN 50ML IV ONE (21:00)
[2016-08-05] MEDS ORDERED: LORAZEPAM 0.5 MG TAB PO PRN (21:15)
[2016-08-05] MEDS ORDERED: NON-FORMULARY MEDICATION (Probiotic Product (Probiotic) 1 TAB) PO SCH (21:15)
[2016-08-05 21:25] LABS: BUN/CREATININE RATIO 17.1 (10-20); CALCIUM 7.9 mg/dl (8.5-10.1); CREATININE 3.5 mg/dl (0.60-1.20); POTASSIUM 5.5 mmol/L (3.5-5.1)
--- NOTE | 2016-08-05 21:25 | History and Physical ---
History & Physical Date & Time of Service: Aug 05, 2016 at 21:16 Chief Complaint: Weakness/Poss. Uti Primary Care Physician: Jan Cervantes M.D. History of Present Illness Source: patient, caregiver () This is a pleasant 81-year-old female, with a history of repeated urinary tract infections, chronic kidney disease stage IV, hypernatremia, C. difficile, who presents with sudden onset weakness. She is accompanied by her today in the emergency department. notes that she has been doing quite well until 4 PM this afternoon. She awoke from a nap and he was cleaning her as she has chronic urinary incontinence. As he was pulling up her diaper, her legs buckled and she dropped to the floor. She did not hit her head, or lose consciousness. notes that he was unable to lift her back up into bed, and called EMS services to bring her into the hospital for further evaluation. He notes that this is classic for her having a urinary tract infection. He is quite diligent about checking routine daily vital signs. He says that they have overall been WNL. He did check her temperature on her this afternoon , and it was 98.4. She herself denies fevers chills or night sweats. denies any acute confusional state, though this has happened to her previously when she has had a urinary tract infection Her appetite and intake have been good. She has chronic urinary incontinence, but denies dysuria or frequency. She has not had any issues with diarrhea or constipation. She denies chest pain, shortness of breath, palpitations, lightheadedness/ dizziness, or lower extremity edema. She was recently admitted in late June 2016 for UTI that was found to be Klebsiella. She was treated with IV ertapenem, and a repeat urine culture on demonstrated that the urinary tract infection had cleared and she was discharged home. She did see Dr. Griffin in the outpatient. She did also develop C. difficile, and was on suppressive oral vancomycin therapy up until now. Past Medical/Surgical History Medical Problems: (1) Acute kidney injury (2) Acute renal failure superimposed on stage 4 chronic kidney disease Status: Resolved (3) Acute urinary tract infection Status: Resolved (4) Benign hypertension Status: Chronic (5) Cardiac catheterization Status: Resolved (6) CHF (congestive heart failure) Status: Resolved (7) Cholecystectomy Status: Resolved (8) Chronic kidney disease Status: Chronic (9) Coronary artery disease Status: Chronic (10) Diabetes Status: Chronic (11) Ischemic cardiomyopathy Status: Resolved (12) Myocardial infarction Status: Chronic (13) Pneumonia Status: Resolved (14) 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 Status: Resolved (15) Sepsis Status: Resolved (16) Sepsis due to Klebsiella Status: Resolved (17) sepsis recurrent UTI BONNIE on ckd Status: Resolved (18) Systolic CHF Status: Resolved (19) UTI (urinary tract infection) Status: Resolved (20) UTI (urinary tract infection) Status: Resolved Surgical Problems: (1) History of cholecystectomy Status: Resolved Carpal Tunnel release, bilaterl Bilateral ureteral stent placement - June 2015 Hypercholesterolemia Family History Other cardiovascular diseases No other family history noted Social History Smoking Status: Never Smoker Smokeless Tobacco Use: No Alcohol Use: none Drug Use: none Marital Status: Housing status: lives with family, prison 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) Immunizations History of Influenza Vaccine: Yes Influenza Vaccine Date: Mar 17, 2010 History of Tetanus Vaccine?: No History of Pneumococcal: No Pneumococcal Date: Jun 06, 2011 History of Hepatitis B Vaccine: No Multi-Drug Resistant Organisms History of MDRO: No Allergies Coded Allergies: Amoxicillin (Verified Allergy, Unknown, UNKNOWN REACTION, 08/05/16) PER PCP RECORDS Clavulanic Acid (Verified Allergy, Unknown, UNKNOWN REACTION, 08/05/16) PER PCP RECORDS Penicillins (Verified Allergy, Unknown, UNKNOWN REACTION, 08/05/16) PER PCP RECORDS Sulfa Antibiotics (Verified Allergy, Unknown, BODY SWELLING,NAUSEA AND VOMITNG, 08/05/16) Home Medications Scheduled Aspirin (Aspirin), 81 MG PO QPM Atorvastatin (Lipitor), 80 MG PO QPM Carvedilol (Carvedilol), 25 MG PO BID Cholecalciferol (Vitamin D3), 1 TAB PO DAILY Clopidogrel Bisulfate (Clopidogrel), 75 MG PO QPM Febuxostat (Uloric), 40 MG PO NOON Loteprednol Etabonate (Lotemax), 1 DROP OPB QAM Multiple Vitamins W/ Minerals (Centrum Silver Ultra [place]), 1 TAB PO QAM Nystatin (Nystop), 1 DOSE TOP BID Pantoprazole (Pantoprazole Sodium), 40 MG PO QAM Probiotic Product (Probiotic), 1 TAB PO NOON Vancomycin Hcl (Vancomycin), 125 MG PO QAM Scheduled PRN Lorazepam (Ativan), 0.5 MG PO Q6H PRN for Anxiety Ondasetron Odt (Zofran Odt), 4 MG PO Q6H PRN for Nausea Review of Systems A 10 point review of systems was negative unless stated above in the history of present illness Physical Exam Vital Signs Date Time Temp Pulse Resp B/P Pulse Ox O2 Delivery O2 Flow Rate FiO2 08/05/16 20:20 90 24 122/58 100 Room Air 08/05/16 19:00 93 22 138/70 98 Nasal Cannula 2.0 08/05/16 19:00 96 18 138/70 97 Room Air 08/05/16 17:09 93 08/05/16 17:00 37.4 94 24 151/74 96 Room Air General Appearance: WD/WN, no apparent distress Head: normocephalic, atraumatic Eyes: normal inspection, EOMI ENT: hearing grossly normal, pharynx normal Neck: supple, no adenopathy, no JVD Respiratory/Chest: lungs clear, normal breath sounds (trace crackles at the bases), no respiratory distress Cardiovascular: regular rate, rhythm, no gallop, no murmur Abdomen/GI: normal bowel sounds, non tender, soft, + pertinent finding (no suprapubic tenderness) Back: normal inspection, no CVA tenderness, no muscle spasm Extremities/Musculoskelatal: no calf tenderness, no pedal edema Neurologic/Psych: alert, normal mood/affect, oriented x 3 Skin: normal color, warm/dry, no rash Lymphatic: no adenopathy Diagnostics Laboratory Results Results Past 24 Hours Test 08/05/16 18:23 08/05/16 18:35 08/05/16 20:59 Range/Units White Blood Count 10.73 4.8-10.8 K/uL Red Blood Count 3.04 4.2-5.4 M/uL Hemoglobin 9.4 12.0-16.0 g/dL Hematocrit 30.6 37-47 % Mean Corpuscular Volume 100.7 80-100 fL Mean Corpuscular Hemoglobin 30.9 25-34 pg Mean Corpuscular Hemoglobin Concent 30.7 32-36 g/dl Platelet Count 200 130-400 K/uL Mean Platelet Volume 9.2 7.4-10.4 fL RDW Standard Deviation 59.2 36.4-46.3 fL RDW Coefficient of Variation 16.2 11.5-14.5 % Neutrophils % (Manual) 69.2 % Lymphocytes % (Manual) 7.0 % Variant Lymphocytes % (manual) 12.3 % Monocytes % (Manual) 7.0 % Eosinophils % (Manual) 1.8 % Basophils % (Manual) 0.9 % Myelocytes % 1.8 % Neutrophils # (Manual) 7.43 1.4-6.5 K/uL Total Absolute Neutrophils 7.43 1.4-6.5 K/uL Lymphocytes # (Manual) 0.75 1.2-3.4 K/uL Absolute Variant Lymphocytes 1.32 K/uL Total Absolute Lymphocytes 2.07 1.2-3.4 K/uL Monocytes # (Manual) 0.75 0.11-0.59 K/uL Eosinophils # (Manual) 0.19 0-0.5 K/uL Basophils # (Manual) 0.10 0-0.2 K/uL Myelocytes # 0.19 0-0 K/uL Anisocytosis PRESENT Prothrombin Time 12.4 9.0-12.0 SECONDS Prothromb Time International Ratio 1.2 0.9-1.1 Activated Partial Thromboplast Time 28.5 21.0-31.0 SECONDS Partial Thromboplastin Ratio 1.1 Sodium Level 145 136-145 mmol/L Potassium Level 6.0 3.5-5.1 mmol/L Chloride Level 114 98-107 mmol/L Carbon Dioxide Level 18 21-32 mmol/L Anion Gap 13.0 3-11 mmol/L Blood Urea Nitrogen 62 7-18 mg/dl Creatinine 3.60 0.60-1.20 mg/dl Est Creatinine Clear Calc Drug Dose 10.7 ml/min Estimated GFR () 12.8 Estimated GFR (Non- 11.1 BUN/Creatinine Ratio 17.2 10-20 Random Glucose 119 70-99 mg/dl Calcium Level 8.7 8.5-10.1 mg/dl Phosphorus Level 2.9 2.5-4.9 mg/dl Magnesium Level 1.3 1.8-2.4 mg/dl Total Bilirubin 0.3 0.2-1 mg/dl Direct Bilirubin < 0.1 0-0.2 mg/dl Aspartate Amino Transf (AST/SGOT) 27 15-37 U/L Alanine Aminotransferase (ALT/SGPT) 31 12-78 U/L Alkaline Phosphatase 83 45-117 U/L Total Creatine Kinase 23 26-192 U/L Creatine Kinase MB 0.7 0.5-3.6 ng/ml Creatine Kinase MB Ratio 3.0 0-3.0 Troponin I < 0.015 0-0.045 ng/ml Total Protein 7.3 6.4-8.2 gm/dl Albumin 2.6 3.4-5.0 gm/dl Lipase 216 73-393 U/L Urine Color ORANGE Urine Appearance TURBID CLEAR Urine pH 6.5 4.5-7.5 Urine Specific [place] 1.011 1.000-1.030 Urine Protein 2+ NEG Urine Glucose (UA) NEG NEG Urine Ketones NEG NEG Urine Occult Blood 3+ NEG Urine Nitrite POS NEG Urine Bilirubin NEG NEG Urine Urobilinogen NEG NEG Urine Leukocyte Esterase LARGE NEG Urine WBC (Auto) >30 0-5 /hpf Urine RBC (Auto) >30 0-4 /hpf Urine Hyaline Casts (Auto) 5-10 0-5 /lpf Urine Epithelial Cells (Auto) 10-20 0-5 /lpf Urine Bacteria (Auto) NEG NEG Urine Yeast (Auto) NONE PRSENT Microbiology Results 08/05/16 Urine Culture, Received Pending Diagnostic Radiology [~ rep ct add3]] CHEST ONE VIEW PORTABLE CLINICAL HISTORY: Generalized Weakness dyspnea COMPARISON STUDY: 06/09/2016 FINDINGS: Mild stable cardiomegaly. Cardiac pacemaker/defibrillator is unchanged in position. Lungs are considered clear. Minimal scarring left lateral calcific angle. IMPRESSION: Chronic and postoperative change. No acute process. Electronically signed by: Juan José Barrett M.D. 08/05/2016 5:25 PM Dictated Date/Time: 08/05/2016 5:24 PM EKG Poor quality data Normal sinus rhythm, rate 97 Left axis deviation Minimal voltage criteria for LVH, maybe normal variant Abnormal QRS-T angle, consider primary T-wave abnormality Impression Assessment and Plan 81-year-old female, presenting with acute weakness, reminiscent of previous urinary tract infections. She has had a complicated course with multiple urinary tract infections in the recent past. She was most recently discharged on 07/21/2016, after a Klebsiella UTI, treated with IV ertapenem. Our plan for her is as follows: Bacterial urinary tract infection - UA, reveals both positive leukocyte esterase and positive nitrites; urine culture is pending - Most recent urine cultures from previous hospitalization note the following: - She has not been on any UTI suppressive therapy as an outpatient, and her last - Ertapenem given in the emergency department; most recent UTI in early July was also treated as such with repeat UA negative (see cultures from 07/2016) IV ertapenem to be continued - She has been following with Dr. Griffin as an outpatient, will consult ID service for further recommendations Acute kidney injury on CKD Stage IV - Multifactorial: Combination of repeated urinary tract infections, and interstitial cystitis - Creatinine 3.6 - Review of creatinines for the past several months reveal new baseline approximately 3.1-3.2 - Avoid nephrotoxic medication; renally dose all necessary nephrotoxic agents - Administer gentle IV rehydration, with daily BMP checks - If creatinine fails to improve, with IV rehydration and treatment of UTI, will consider consultation with nephrology Hyperkalemia - Potassium on arrival 6.0 Repeat lab came back at 5.5 - No obvious EKG changes - We'll give her 1/2 amp of calcium gluconate - Monitor in telemetry overnight Hypomagnesemia - Magnesium 1.3 - Replate 2 g of MgSulfate; and recheck Mg level 1 hour after repletion History of C. difficile infection - Patient is on by mouth vancomycin prior to arrival - Reviewed most recent note by Dr. Griffin on 08/01/2016: Recommended continuing on with by mouth vancomycin - Pharmacy may renally dosed vancomycin, as patient has an BONNIE Hypernatremia - Na with repeat BMP, came back at 146 - Patient is noted to have periodic chronic hypernatremia - IV fluids will be changed to 1/2 NSS Chronic systolic congestive heart failure - EF 35-40%, dated May 2016 - Daily weights with ins and outs - Clinically no evidence of overt failure at this time - Continue carvedilol; ACEis contraindicated in light of chronic kidney dysfunction - Patient is currently not on the loop diuretic at home, and per has been stable in this regard Will monitor fluid status daily and administer Lasix on an as-needed basis DVT prophylaxis - Heparin 5000 units subcutaneous twice a day - CODI stockings - SCD to the knees CODE STATUS - Level I full code - Patient designates her a substitute decision-maker, if she cannot make her own decisions Disposition - Monitor telemetry due to hyperkalemia; transfer to medical surgical unit if repeat potassium is normal - OT and PT orders placed; patient is totally dependent on for activities of daily living - Patient notes that she does get [facility], Saturday to Saturday Resident Physician Supervision Note: I was present with [Name of resident] during the history and exam. I discussed the case with the resident and agree with the findings and plan as documented in the note. Any exceptions or clarifications are listed here: Pt seen/examined - presents with UTI and related weakness which is not unusual for her. She was on Ertapenem recently for resistant Klebs. She typically develops weakness with infection. Her K was noted to be 5.5 on admission and she has a degree of acute on chronic RF Pt is AAO x 2 S1,2 - systolic murmur Lungs clear NT/ND P: Restart Ertapenem pending culture results IVF and recheck K at 3a - monitor volume status as she has a history of Systolic CHF PT/OT Above discussed with resident Documented By: Tigre Banda Level of Care Telemetry Resuscitation Status FULL RESUSCITATION VTE Prophylaxis VTE Risk Assessment Done? Y/N: Yes Risk Level: Moderate Given or contraindicated: Unfractionated heparin SQ
[2016-08-05] MEDS ORDERED: SODIUM CHLORIDE 0.9% 1000ML 1,000 ML IV SCH (22:00)
[2016-08-05] MEDS ORDERED: MAGNESIUM SULFATE 1GM / D5W 1 GM BAG ONE ×2 (22:05→22:07)
[2016-08-05] MEDS ORDERED: CALCIUM GLUCONATE 10% 500 MG in SODIUM CHLORIDE 0.9% 50ML 50 ML IV STA (22:32)
[2016-08-05] MEDS ORDERED: MAGNESIUM SULFATE 1GM / D5W 1 GM in PREMIXED IN D5W 100 ML IV STA (22:33)
[2016-08-06] VITALS (12 sets, daily range): BP systolic 99–147; BP diastolic 60–84; PULSE 79–92; TEMP 36.7–39.2; O2SAT 96–100; Ht 162.6 cm; Wt 71.8 kg
[2016-08-06] MEDS: SODIUM CHLORIDE 0.45% 1000ML 1,000 ML IV SCH ×2 (00:01→11:51)
[2016-08-06 02:46] LABS: HEMATOCRIT 28.2 % (37-47); MEAN CELL VOLUME 100.7 fL (80-100); MEAN CORPUSCULAR HEMOGLOBIN 31.4 pg (25-34); MEAN CORPUSCULAR HGB CONC 31.2 g/dl (32-36); MEAN PLATELET VOLUME 9.2 fL (7.4-10.4); PLATELET COUNT 177 K/uL (130-400); WHITE BLOOD COUNT 9.22 K/uL (4.8-10.8)
[2016-08-06 03:05] LABS: BUN/CREATININE RATIO 16.9 (10-20); CALCIUM 8.3 mg/dl (8.5-10.1); CREATININE 3.4 mg/dl (0.60-1.20); MAGNESIUM 2.3 mg/dl (1.8-2.4); POTASSIUM 5.4 mmol/L (3.5-5.1)
[2016-08-06 03:07] LABS: COMPLETE YES; EOSINOPHIL % 1.7 %; LYMPH ABS # 1.45 K/uL (1.2-3.4); LYMPHOCYTE % 15.7 %; MYELOCYTE % 3.5 %; NEUTROPHILS % 77.4 %
[2016-08-06] MEDS ORDERED: INVANZ~PHARMACY CONSULT IN PROGRESS PRN (06:45)
[2016-08-06] MEDS: LOTEMAX~ORDER AWAITING ACTION SCH ×2 (08:00→15:41)
[2016-08-06] MEDS: RASPBERRY SYRUP 5 ML UDP PO SCH (08:52)
[2016-08-06] MEDS: CEROVITE ADV FORMULA TAB PO SCH (08:52)
[2016-08-06] MEDS: VANCOMYCIN HCL 125 MG/2.5ML SOLN PO SCH (08:52)
[2016-08-06] MEDS: CARVEDILOL 25 MG TAB PO SCH ×2 (08:52→20:08)
[2016-08-06] MEDS: PANTOprazole SOD 40 MG TAB PO SCH (08:53)
[2016-08-06] MEDS: NYSTATIN POWDER 15GM BTL EXT SCH ×2 (08:53→20:08)
[2016-08-06] MEDS: HEPARIN SOD 5000 UNIT/0.5 ML CARP SQ SCH ×2 (08:55→20:12)
--- NOTE | 2016-08-06 11:12 | Medical Consult ---
Consultation Date of Consultation: Aug 06, 2016. Attending Physician: John Sumner MD Reason for Consultation: Recurrent UTI History of Present Illness Patient is an 81 yo female well know to the ID service from previous admission/ outpatient follow up for recurrent UTI's. She was admitted approximately 2 weeks ago for UTI and was treated with IV Ertapenem under the care of Dr. Griffin for Klebsiella UTI. The patient has had many UTI's in the past for which she has required IV antibiotic therapy and also outpatient therapy. She had a trial of rotational antibiotic therapy to prophylax against recurrences, but the patient's bacteria is typically resistant to all PO abx. Prior to current admission, the patient had an episode of weakness at home for which her had to call EMS. She states that she has not been experiencing any fever, sweats , chills, SOB, chest pain, abdominal pain, back pain, or urinary symptoms. 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 Since admission, the patient has a urine culture growing gram negative bacilli pending identification. She was started on IV Ertapenem and her chronic PO Vancomycin. She had a CXR which showed no acute disease. WBC count was 10.73, and her Hgb was 9.4 on admission. Creatinine has been elevated to 3.50. Past Medical/Surgical History Medical Problems: (1) Acute on chronic kidney failure Status: Acute (2) Acute renal failure Status: Acute (3) Altered mental status Status: Acute (4) Altered mental status Status: Acute (5) ARF (acute renal failure) Status: Acute (6) CRD (chronic renal disease) Status: Acute (7) Dehydration Status: Acute (8) Dehydration Status: Acute (9) Fever Status: Acute (10) Hyperkalemia Status: Acute (11) Hyperkalemia Status: Acute (12) Hypomagnesemia Status: Acute (13) PICC (peripherally inserted central catheter) in place Status: Acute (14) Pneumonia Status: Acute (15) Renal failure Status: Acute (16) Renal insufficiency Status: Acute (17) Renal insufficiency Status: Acute (18) Sepsis Status: Acute (19) Sepsis Status: Acute (20) Uremia Status: Acute (21) UTI (urinary tract infection) Status: Acute (22) UTI (urinary tract infection) Status: Acute (23) UTI (urinary tract infection) Status: Acute (24) Weakness Status: Acute (25) Weakness Status: Acute (26) Weakness Status: Acute (27) Weakness Status: Acute (28) Weakness Status: Acute Medical Problems: (1) Acute hypernatremia (2) Acute kidney injury (3) Acute on chronic renal failure (4) Acute renal failure superimposed on stage 4 chronic kidney disease (5) Acute urinary tract infection (6) Anemia (7) Benign hypertension (8) Cardiac catheterization (9) CHF (congestive heart failure) (10) CHF (congestive heart failure) (11) Cholecystectomy (12) Chronic kidney disease (13) CKD (chronic kidney disease) stage 5, GFR less than 15 ml/min (14) Coronary artery disease (15) Dehydration (16) Diabetes (17) Ischemic cardiomyopathy (18) Metabolic acidosis (19) Metabolic acidosis with increased anion gap and reduced excretion of inorganic acids (20) Myocardial infarction (21) Pneumonia (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 (23) Recurrent UTI (24) Secondary hyperparathyroidism of renal origin (25) Sepsis (26) Sepsis due to Klebsiella (27) sepsis recurrent UTI BONNIE on ckd (28) Systolic CHF (29) UTI (urinary tract infection) (30) UTI (urinary tract infection) (31) UTI (urinary tract infection) (32) Weakness Surgical Problems: (1) History of cholecystectomy (2) History of ureter stent Family History Other cardiovascular diseases Noncontributory Social History Smoking Status: Never Smoker Smokeless Tobacco Use: No Alcohol Use: none Drug Use: none Marital Status: Housing Status: lives with significant other 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) Allergies Coded Allergies: Amoxicillin (Verified Allergy, Unknown, UNKNOWN REACTION, 08/05/16) PER PCP RECORDS Clavulanic Acid (Verified Allergy, Unknown, UNKNOWN REACTION, 08/05/16) PER PCP RECORDS Penicillins (Verified Allergy, Unknown, UNKNOWN REACTION, 08/05/16) PER PCP RECORDS Sulfa Antibiotics (Verified Allergy, Unknown, BODY SWELLING,NAUSEA AND VOMITNG, 08/05/16) Home Medications Reported Home Medications Medications Dose Route/Sig Max Daily Dose Days Date Category Dose Instructions Vancomycin (Vancomycin HCl) 125 Mg Cap 125 Mg PO QAM 08/05/16 Reported Vitamin D3 (Cholecalciferol) 1,000 Unit Tab 1 Tab PO DAILY 90 07/13/16 Reported Ativan (Lorazepam) 0.5 Mg Tab 0.5 Mg PO Q6H PRN 04/02/16 Reported Nystop (Nystatin) 45 Appln/15 Gm Powd 1 Dose TOP BID 11/09/15 Reported Probiotic (Probiotic Product) 1 Cap Cap 1 Tab PO NOON 11/09/15 Reported Lotemax (Loteprednol Etabonate) 0.5 % Gel 1 Drop OPB QAM 10/12/15 Reported Clopidogrel (Clopidogrel Bisulfate) 75 Mg Tab 75 Mg PO QPM 10/12/15 Reported Pantoprazole Sodium (Pantoprazole) 40 Mg Tab 40 Mg PO QAM 10/12/15 Reported Carvedilol 25 Mg Tab 25 Mg PO BID 10/12/15 Reported Uloric (Febuxostat) 40 Mg Tab 40 Mg PO NOON 09/03/14 Reported TAKE THIS MEDICATION DAILY WITH LUNCH Centrum Silver Ultra Wome (Multiple Vitamins W/ Minerals) 1 Tab Tab 1 Tab PO QAM 09/03/14 Reported Lipitor (Atorvastatin Calcium) 80 Mg Tab 80 Mg PO QPM 02/24/14 Reported Zofran Odt (Ondansetron HCl) 4 Mg Tab 4 Mg PO Q6H PRN 01/21/14 Reported Aspirin 81 Mg Tab 81 Mg PO QPM 01/21/14 Reported Current Inpatient Medications Current Inpatient Medications Medications (Trade) Dose Ordered Sig/Helder Route Start Time Stop Time Status Last Admin Dose Admin Heparin Sodium (Porcine) (Heparin Sq 5000 Unit/0.5ml) 5,000 unit Q12 SQ 08/06/16 09:00 09/05/16 08:59 08/06/16 08:55 5,000 UNIT Acetaminophen (Tylenol Tab) 650 mg Q4H PRN PO 08/05/16 21:00 09/04/16 20:59 Al Hydrox/Mg Hydrox/Simethicone (Maalox Max Susp) 15 ml Q4H PRN PO 08/05/16 21:00 09/04/16 20:59 Magnesium Hydroxide (Milk Of Magnesia Susp) 30 ml Q12H PRN PO 08/05/16 21:00 09/04/16 20:59 Ondansetron HCl (Zofran Inj) 4 mg Q6H PRN IV 08/05/16 21:00 09/04/16 20:59 Nitroglycerin (Nitrostat Tab) 0.4 mg UD PRN SL 08/05/16 21:00 09/04/16 20:59 Polyethylene (Miralax Powder Packet) 17 gm DAILY PRN PO 08/05/16 21:00 09/04/16 20:59 Aspirin (Ecotrin Tab) 81 mg QPM PO 08/06/16 21:00 09/05/16 20:59 Atorvastatin Calcium (Lipitor Tab) 80 mg QPM PO 08/06/16 21:00 09/05/16 20:59 Carvedilol (Coreg Tab) 25 mg BID PO 08/06/16 09:00 09/05/16 08:59 08/06/16 08:52 25 MG Clopidogrel Bisulfate (plAVix TAB) 75 mg QPM PO 08/06/16 21:00 09/05/16 20:59 Lorazepam (Ativan Tab) 0.5 mg Q6H PRN PO 08/05/16 21:15 09/04/16 21:14 Multivitamins/ Minerals (Multivitamin W/ Minerals Tab) 1 tab QAM PO 08/06/16 09:00 09/05/16 08:59 08/06/16 08:52 1 TAB Nystatin (Mycostatin Powder) 1 appln BID EXT 08/06/16 09:00 09/05/16 08:59 08/06/16 08:53 1 APPLN Pantoprazole Sodium (Protonix Tab) 40 mg QAM PO 08/06/16 09:00 09/05/16 08:59 08/06/16 08:53 40 MG Febuxostat (Uloric) 40 mg 1200 PO 08/06/16 12:00 09/05/16 11:59 Miscellaneous Information 1 ea 1 ea QS N/A 08/06/16 08:00 09/05/16 07:59 08/06/16 08:00 1 EA Ertapenem/Sodium Chloride (Invanz Iv/Nss 50ml) 55 ml @ 120 mls/hr Q24H IV 08/06/16 21:00 08/14/16 21:28 Vancomycin HCl 125 mg 125 mg QAM PO 08/06/16 09:00 08/16/16 08:59 08/06/16 08:52 125 MG Sodium Chloride (1/2 Nss 1000ml) 1,000 ml @ 75 mls/hr [id number] IV 08/05/16 23:45 09/04/16 23:44 08/06/16 00:01 75 MLS/HR Miscellaneous Information 1 ea UD PRN N/A 08/06/16 06:45 09/05/16 06:44 Raspberry (Raspberry Syrup 5ml Cup) 5 ml QAM PO 08/06/16 09:00 08/20/16 08:59 08/06/16 08:52 5 ML Review of Systems Constitutional: + fatigue, + weakness, No chills, No fever, No sweats Eyes: No worsening of vision ENT: No hearing loss Respiratory: No cough, No shortness of breath Cardiovascular: No chest pain Abdomen: No diarrhea, No nausea, No pain, No vomiting Musculoskeletal: No joint pain Genitourinary - Female: No dysuria, No urinary frequency, No urinary urgency Neurologic: + memory loss (chronic), + weakness Endocrine: + fatigue Integumentary: No itch, No rash Physical Exam Date Time Temp Pulse Resp B/P Pulse Ox O2 Delivery O2 Flow Rate FiO2 08/06/16 08:35 37.5 89 18 122/66 98 Nasal Cannula 2.0 08/06/16 04:00 Nasal Cannula 2.0 08/06/16 03:00 37.6 79 19 130/65 100 Nasal Cannula 2.0 08/06/16 00:43 37.5 92 16 146/84 100 Nasal Cannula 2.0 08/05/16 22:59 88 20 138/73 99 Nasal Cannula 2.0 08/05/16 21:00 91 20 144/70 97 Nasal Cannula 2.0 08/05/16 20:20 90 24 122/58 100 Room Air 08/05/16 19:00 93 22 138/70 98 Nasal Cannula 2.0 08/05/16 19:00 96 18 138/70 97 Room Air 08/05/16 17:09 93 08/05/16 17:00 37.4 94 24 151/74 96 Room Air General Appearance: WD/WN, no apparent distress Head: normocephalic, atraumatic Eyes: normal inspection, sclerae normal ENT: hearing grossly normal Neck: supple, trachea midline Respiratory/Chest: chest non-tender, lungs clear, normal breath sounds, no respiratory distress, no accessory muscle use Cardiovascular: regular rate, rhythm Abdomen/GI: normal bowel sounds, non tender, soft Extremities/Musculoskelatal: normal inspection, no pedal edema Neurologic/Psych: alert, normal mood/affect Laboratory Results CHEST ONE VIEW PORTABLE CLINICAL HISTORY: Generalized Weakness dyspnea COMPARISON STUDY: 06/09/2016 FINDINGS: Mild stable cardiomegaly. Cardiac pacemaker/defibrillator is unchanged in position. Lungs are considered clear. Minimal scarring left lateral calcific angle. IMPRESSION: Chronic and postoperative change. No acute process. RUN DATE: 08/06/16 [facility] LAB PAGE 1 RUN TIME: 0753 Specimen Inquiry PATIENT: ELIEL MIR LOC: [place] U # : [id number] AGE/SX: 81/F ROOM: [facility] REG : 08/05/[address]: Tigre Banda MD : [id number] BED: 1 DIS : STATUS: ADM IN TLOC: SPEC #: [id number] [place]: 08/05/16 STATUS: RES REQ #: [id number] RECD: 08/05/16 [facility] DR: Michael Melendez M.D. SOURCE: URINE CATH ENTR: 08/05/16-[address]: Jan Cervantes M.D. [facility]: ORDERED: CULTURE UR CATH Procedure Result Verified Site URINE CULTURE Preliminary 08/06/16-0753 Organism 1 GRAM NEGATIVE BACILLI COLONY COUNT >100,000 CFU/ml SENS SENSITIVITY TO FOLLOW Item Value Date Time Urine Culture - Preliminary Resulted 08/05/16 1835 Urine,Catheterized Gram Negative Bacilli Last 24 Hours Test 08/05/16 18:23 08/05/16 18:35 08/05/16 20:59 08/06/16 02:22 White Blood Count 10.73 K/uL 9.22 K/uL Red Blood Count 3.04 M/uL 2.80 M/uL Hemoglobin 9.4 g/dL 8.8 g/dL Hematocrit 30.6 % 28.2 % Mean Corpuscular Volume 100.7 fL 100.7 fL Mean Corpuscular Hemoglobin 30.9 pg 31.4 pg Mean Corpuscular Hemoglobin Concent 30.7 g/dl 31.2 g/dl Platelet Count 200 K/uL 177 K/uL Mean Platelet Volume 9.2 fL 9.2 fL RDW Standard Deviation 59.2 fL 59.1 fL RDW Coefficient of Variation 16.2 % 16.1 % Neutrophils % (Manual) 69.2 % 77.4 % Lymphocytes % (Manual) 7.0 % 15.7 % Variant Lymphocytes % (manual) 12.3 % Monocytes % (Manual) 7.0 % 1.7 % Eosinophils % (Manual) 1.8 % 1.7 % Basophils % (Manual) 0.9 % Myelocytes % 1.8 % 3.5 % Neutrophils # (Manual) 7.43 K/uL 7.14 K/uL Total Absolute Neutrophils 7.43 K/uL 7.14 K/uL Lymphocytes # (Manual) 0.75 K/uL 1.45 K/uL Absolute Variant Lymphocytes 1.32 K/uL Total Absolute Lymphocytes 2.07 K/uL 1.45 K/uL Monocytes # (Manual) 0.75 K/uL 0.16 K/uL Eosinophils # (Manual) 0.19 K/uL 0.16 K/uL Basophils # (Manual) 0.10 K/uL Myelocytes # 0.19 K/uL 0.32 K/uL Anisocytosis PRESENT Prothrombin Time 12.4 SECONDS Prothromb Time International Ratio 1.2 Activated Partial Thromboplast Time 28.5 SECONDS Partial Thromboplastin Ratio 1.1 Sodium Level 145 mmol/L 146 mmol/L 146 mmol/L Potassium Level 6.0 mmol/L 5.5 mmol/L 5.4 mmol/L Chloride Level 114 mmol/L 118 mmol/L 116 mmol/L Carbon Dioxide Level 18 mmol/L 17 mmol/L 18 mmol/L Anion Gap 13.0 mmol/L 11.0 mmol/L 12.0 mmol/L Blood Urea Nitrogen 62 mg/dl 60 mg/dl 57 mg/dl Creatinine 3.60 mg/dl 3.50 mg/dl 3.40 mg/dl Est Creatinine Clear Calc Drug Dose 10.7 ml/min 11.0 ml/min 11.9 ml/min Estimated GFR () 12.8 13.3 13.7 Estimated GFR (Non- 11.1 11.4 11.9 BUN/Creatinine Ratio 17.2 17.1 16.9 Random Glucose 119 mg/dl 111 mg/dl 112 mg/dl Calcium Level 8.7 mg/dl 7.9 mg/dl 8.3 mg/dl Phosphorus Level 2.9 mg/dl Magnesium Level 1.3 mg/dl 2.3 mg/dl Total Bilirubin 0.3 mg/dl Direct Bilirubin < 0.1 mg/dl Aspartate Amino Transf (AST/SGOT) 27 U/L Alanine Aminotransferase (ALT/SGPT) 31 U/L Alkaline Phosphatase 83 U/L Total Creatine Kinase 23 U/L Creatine Kinase MB 0.7 ng/ml Creatine Kinase MB Ratio 3.0 Troponin I < 0.015 ng/ml Total Protein 7.3 gm/dl Albumin 2.6 gm/dl Lipase 216 U/L Urine Color ORANGE Urine Appearance TURBID Urine pH 6.5 Urine Specific Penelope 1.011 Urine Protein 2+ Urine Glucose (UA) NEG Urine Ketones NEG Urine Occult Blood 3+ Urine Nitrite POS Urine Bilirubin NEG Urine Urobilinogen NEG Urine Leukocyte Esterase LARGE Urine WBC (Auto) >30 /hpf Urine RBC (Auto) >30 /hpf Urine Hyaline Casts (Auto) 5-10 /lpf Urine Epithelial Cells (Auto) 10-20 /lpf Urine Bacteria (Auto) NEG Urine Yeast (Auto) Nucleated RBC Absolute Count (auto) 0.02 K/uL Nucleated Red Blood Cells % 0.2 % Red Blood Cell Morphology Unremarkable Assessment & Plan Patient with recurrent UTI's who presented to the ED with weakness. Gram negative bacilli growing in urine culture, and she is currently on IV Ertapenem. Will continued Ertapenem pending culture results. Patient may need extended therapy if this is the same bacteria as her previous culture. We will continue to follow. PROVIDER ADDENDUM: Patient examined and reviewed with Ms. Villarreal. Agree with above assessment.
[2016-08-06] MEDS: FEBUXOSTAT 40 MG TAB PO SCH (11:50)
[2016-08-06] MEDS: ERTAPENEM IV 500 MG in SODIUM CHLORIDE 0.9% 50ML 50 ML IV SCH (16:46)
[2016-08-06] MEDS: ONDANSETRON INJ 2 MG/ML 2 ML VIAL IV PRN (17:08)
[2016-08-06] MEDS ORDERED: ACETAMINOPHEN IV 1,000 MG in EMPTY BAG 0 ML IV ONE (17:15)
[2016-08-06] MEDS: ATORVASTATIN 40 MG TAB PO SCH (20:09)
[2016-08-06] MEDS: ASPIRIN 81 MG ECTAB PO SCH (20:09)
[2016-08-06] MEDS: CLOPIDOGREL BISULFATE 75 MG TAB PO SCH (20:09)
--- NOTE | 2016-08-06 21:20 | Progress Note ---
Subjective Subjective Date of Service: Aug 06, 2016. Pt evaluation today including: conversation w/ patient, conversation w/ family (), physical exam, chart review, review of studies, review of inpatient medication list Problem List Medical Problems: (1) Acute on chronic kidney failure Status: Acute (2) Acute renal failure Status: Acute (3) Altered mental status Status: Acute (4) Altered mental status Status: Acute (5) ARF (acute renal failure) Status: Acute (6) CRD (chronic renal disease) Status: Acute (7) Dehydration Status: Acute (8) Dehydration Status: Acute (9) Fever Status: Acute (10) Hyperkalemia Status: Acute (11) Hyperkalemia Status: Acute (12) Hypomagnesemia Status: Acute (13) PICC (peripherally inserted central catheter) in place Status: Acute (14) Pneumonia Status: Acute (15) Renal failure Status: Acute (16) Renal insufficiency Status: Acute (17) Renal insufficiency Status: Acute (18) Sepsis Status: Acute (19) Sepsis Status: Acute (20) Uremia Status: Acute (21) UTI (urinary tract infection) Status: Acute (22) UTI (urinary tract infection) Status: Acute (23) UTI (urinary tract infection) Status: Acute (24) Weakness Status: Acute (25) Weakness Status: Acute (26) Weakness Status: Acute (27) Weakness Status: Acute (28) Weakness Status: Acute Review of Systems Constitutional: + chills, + fever, No weight loss ENT: No hearing loss Respiratory: No cough Cardiac: No chest pain Abdomen: No pain Female : No dysuria Neurologic: No memory loss Psychiatric: No depression symptoms Endo: + fatigue Skin: No rash Physical Exam Vital Signs Vital Signs Past 24 Hours: Date Time Temp Pulse Resp B/P Pulse Ox O2 Delivery O2 Flow Rate FiO2 08/06/16 20:05 37.0 80 109/60 97 08/06/16 19:25 37.4 08/06/16 16:49 39.2 90 18 123/75 08/06/16 16:00 98 Nasal Cannula 2.0 08/06/16 15:39 38.7 90 18 147/70 98 Nasal Cannula 2.0 08/06/16 12:18 36.7 87 20 99/67 96 Nasal Cannula 2.0 08/06/16 12:00 99 Nasal Cannula 2.0 08/06/16 08:35 37.5 89 18 122/66 98 Nasal Cannula 2.0 08/06/16 08:00 98 Nasal Cannula 2.0 08/06/16 04:00 Nasal Cannula 2.0 08/06/16 03:00 37.6 79 19 130/65 100 Nasal Cannula 2.0 08/06/16 00:43 37.5 92 16 146/84 100 Nasal Cannula 2.0 08/05/16 22:59 88 20 138/73 99 Nasal Cannula 2.0 Physical Exam: General Appearance: WD/WN, no apparent distress Eyes: bilateral eyes normal inspection ENT: hearing grossly normal, pharynx normal Neck: supple, no JVD Respiratory/Chest: normal breath sounds, no accessory muscle use Cardiovascular: no edema, no JVD Abdomen: non tender, no organomegaly Extremities: non-tender, no pedal edema Neurologic/Psychiatric: alert, normal mood/affect Skin: normal color Medications Medications: Current Inpatient Medications Medications (Trade) Dose Ordered Sig/Helder Route Start Time Stop Time Status Last Admin Dose Admin Heparin Sodium (Porcine) (Heparin Sq 5000 Unit/0.5ml) 5,000 unit Q12 SQ 08/06/16 09:00 09/05/16 08:59 08/06/16 08:55 5,000 UNIT Acetaminophen (Tylenol Tab) 650 mg Q4H PRN PO 08/05/16 21:00 09/04/16 20:59 08/06/16 16:11 650 MG Al Hydrox/Mg Hydrox/Simethicone (Maalox Max Susp) 15 ml Q4H PRN PO 08/05/16 21:00 09/04/16 20:59 Magnesium Hydroxide (Milk Of Magnesia Susp) 30 ml Q12H PRN PO 08/05/16 21:00 09/04/16 20:59 Ondansetron HCl (Zofran Inj) 4 mg Q6H PRN IV 08/05/16 21:00 09/04/16 20:59 08/06/16 17:08 4 MG Nitroglycerin (Nitrostat Tab) 0.4 mg UD PRN SL 08/05/16 21:00 09/04/16 20:59 Polyethylene (Miralax Powder Packet) 17 gm DAILY PRN PO 08/05/16 21:00 09/04/16 20:59 Aspirin (Ecotrin Tab) 81 mg QPM PO 08/06/16 21:00 09/05/16 20:59 08/06/16 20:09 81 MG Atorvastatin Calcium (Lipitor Tab) 80 mg QPM PO 08/06/16 21:00 09/05/16 20:59 08/06/16 20:09 80 MG Carvedilol (Coreg Tab) 25 mg BID PO 08/06/16 09:00 09/05/16 08:59 08/06/16 20:08 25 MG Clopidogrel Bisulfate (plAVix TAB) 75 mg QPM PO 08/06/16 21:00 09/05/16 20:59 08/06/16 20:09 75 MG Lorazepam (Ativan Tab) 0.5 mg Q6H PRN PO 08/05/16 21:15 09/04/16 21:14 Multivitamins/ Minerals (Multivitamin W/ Minerals Tab) 1 tab QAM PO 08/06/16 09:00 09/05/16 08:59 08/06/16 08:52 1 TAB Nystatin (Mycostatin Powder) 1 appln BID EXT 08/06/16 09:00 09/05/16 08:59 08/06/16 20:08 1 APPLN Pantoprazole Sodium (Protonix Tab) 40 mg QAM PO 08/06/16 09:00 09/05/16 08:59 08/06/16 08:53 40 MG Febuxostat (Uloric) 40 mg 1200 PO 08/06/16 12:00 09/05/16 11:59 08/06/16 11:50 40 MG Miscellaneous Information 1 ea 1 ea QS N/A 08/06/16 08:00 09/05/16 07:59 08/06/16 08:00 1 EA Ertapenem/Sodium Chloride (Invanz Iv/Nss 50ml) 55 ml @ 120 mls/hr Q24H IV 08/06/16 21:00 08/14/16 21:28 08/06/16 16:46 120 MLS/HR Vancomycin HCl 125 mg 125 mg QAM PO 08/06/16 09:00 08/16/16 08:59 08/06/16 08:52 125 MG Sodium Chloride (1/2 Nss 1000ml) 1,000 ml @ 75 mls/hr [id number] IV 08/05/16 23:45 09/04/16 23:44 08/06/16 11:51 75 MLS/HR Miscellaneous Information 1 ea UD PRN N/A 08/06/16 06:45 09/05/16 06:44 Raspberry (Raspberry Syrup 5ml Cup) 5 ml QAM PO 08/06/16 09:00 08/20/16 08:59 08/06/16 08:52 5 ML Laboratory Data Labs: Last 24 Hours Test 08/06/16 02:22 White Blood Count 9.22 K/uL Red Blood Count 2.80 M/uL Hemoglobin 8.8 g/dL Hematocrit 28.2 % Mean Corpuscular Volume 100.7 fL Mean Corpuscular Hemoglobin 31.4 pg Mean Corpuscular Hemoglobin Concent 31.2 g/dl Platelet Count 177 K/uL Mean Platelet Volume 9.2 fL RDW Standard Deviation 59.1 fL RDW Coefficient of Variation 16.1 % Nucleated RBC Absolute Count (auto) 0.02 K/uL Neutrophils % (Manual) 77.4 % Lymphocytes % (Manual) 15.7 % Monocytes % (Manual) 1.7 % Eosinophils % (Manual) 1.7 % Myelocytes % 3.5 % Nucleated Red Blood Cells % 0.2 % Neutrophils # (Manual) 7.14 K/uL Total Absolute Neutrophils 7.14 K/uL Lymphocytes # (Manual) 1.45 K/uL Total Absolute Lymphocytes 1.45 K/uL Monocytes # (Manual) 0.16 K/uL Eosinophils # (Manual) 0.16 K/uL Myelocytes # 0.32 K/uL Red Blood Cell Morphology Unremarkable Sodium Level 146 mmol/L Potassium Level 5.4 mmol/L Chloride Level 116 mmol/L Carbon Dioxide Level 18 mmol/L Anion Gap 12.0 mmol/L Blood Urea Nitrogen 57 mg/dl Creatinine 3.40 mg/dl Est Creatinine Clear Calc Drug Dose 11.9 ml/min Estimated GFR () 13.7 Estimated GFR (Non- 11.9 BUN/Creatinine Ratio 16.9 Random Glucose 112 mg/dl Calcium Level 8.3 mg/dl Magnesium Level 2.3 mg/dl Assessment and Plan 81-year-old female, presenting with acute weakness, reminiscent of previous urinary tract infections. She has had a complicated course with multiple urinary tract infections in the recent past. She was most recently discharged on 07/21/2016, after a Klebsiella UTI, treated with IV ertapenem. Bacterial recurrent urinary tract infection, hx of klebsiella, fevers check blood cultures urine culture is pending She has not been on any UTI suppressive therapy as an outpatient, and her last Ertapenem given in the emergency department; most recent UTI in early July was also treated as such with repeat UA negative (see cultures from 07/19/2016) cont IV ertapenem appreciated ID recs Acute kidney injury on CKD Stage IV Multifactorial: Combination of repeated urinary tract infections, and interstitial cystitis Creatinine 3.6 Review of creatinines for the past several months reveal new baseline approximately 3.1-3.2 Avoid nephrotoxic medication; renally dose all necessary nephrotoxic agents continue IVF Hyperkalemia Potassium on arrival 6.0 improved to 5.4 Hypomagnesemia Replaced 2 g of MgSulfate; and recheck Mg level 1 hour after repletion History of C. difficile infection Patient is on by mouth vancomycin prior to arrival Reviewed most recent note by Dr. Griffin on 08/01/2016: Recommended continuing on with by mouth vancomycin Hypernatremia Na with repeat BMP, came back at 146 Patient is noted to have periodic chronic hypernatremia IV fluids 1/2 NSS Chronic systolic congestive heart failure EF 35-40%, dated May 2016 Daily weights with ins and outs Clinically no evidence of overt failure at this time Continue carvedilol; ACEis contraindicated in light of chronic kidney dysfunction Patient is currently not on the loop diuretic at home, and per has been stable in this regard Will monitor fluid status daily and administer Lasix on an as-needed basis DVT prophylaxis Heparin 5000 units subcutaneous twice a day CODI stockings SCD to the knees CODE STATUS Level I full code PT/OT keenanal Patient notes that she does get [facility], Saturday to Saturday
[2016-08-07] VITALS (7 sets, daily range): BP systolic 107–131; BP diastolic 51–67; PULSE 71–94; TEMP 36.7–37.8; O2SAT 96–99
[2016-08-07] MEDS: SODIUM CHLORIDE 0.45% 1000ML 1,000 ML IV SCH ×2 (02:25→16:30)
[2016-08-07] MEDS: ONDANSETRON INJ 2 MG/ML 2 ML VIAL IV PRN (04:12)
[2016-08-07 06:47] LABS: HEMATOCRIT 25.9 % (37-47); MEAN CELL VOLUME 98.5 fL (80-100); MEAN CORPUSCULAR HEMOGLOBIN 31.2 pg (25-34); MEAN CORPUSCULAR HGB CONC 31.7 g/dl (32-36); MEAN PLATELET VOLUME 9.2 fL (7.4-10.4); PLATELET COUNT 184 K/uL (130-400); RED BLOOD COUNT 2.63 M/uL (4.2-5.4); WHITE BLOOD COUNT 10.61 K/uL (4.8-10.8)
[2016-08-07 07:10] LABS: BASO ABS # 0.19 K/uL (0-0.2); BASOPHIL % 1.8 %; COMPLETE YES; LYMPH ABS # 0.75 K/uL (1.2-3.4); LYMPHOCYTE % 7.1 %; NEUTROPHILS % 88.4 %
[2016-08-07 07:26] LABS: BUN/CREATININE RATIO 17.1 (10-20); CALCIUM 8.5 mg/dl (8.5-10.1); CREATININE 3.4 mg/dl (0.60-1.20); POTASSIUM 5.3 mmol/L (3.5-5.1)
[2016-08-07] MEDS: LOTEMAX~ORDER AWAITING ACTION SCH ×4 (08:00→23:56)
[2016-08-07] MEDS: VANCOMYCIN HCL 125 MG/2.5ML SOLN PO SCH (08:53)
[2016-08-07] MEDS: CARVEDILOL 25 MG TAB PO SCH ×2 (08:54→20:29)
[2016-08-07] MEDS: RASPBERRY SYRUP 5 ML UDP PO SCH (08:54)
[2016-08-07] MEDS: NYSTATIN POWDER 15GM BTL EXT SCH ×2 (08:55→20:28)
[2016-08-07] MEDS: CEROVITE ADV FORMULA TAB PO SCH (08:55)
[2016-08-07] MEDS: PANTOprazole SOD 40 MG TAB PO SCH (08:55)
[2016-08-07] MEDS: HEPARIN SOD 5000 UNIT/0.5 ML CARP SQ SCH ×2 (08:58→20:54)
--- NOTE | 2016-08-07 10:11 | Infectious Disease Progress Nt ---
Progress Note Date of Service Aug 07, 2016. Subjective Pt evaluation today including: conversation w/ patient, physical exam, chart review, lab review, review of studies, review of inpatient medication list WBC count 10.61. Hgb 8.2 today. Creatinine continues to be elevated to 3.40. Blood cultures are pending. Urine culture is growing Klebsiella which is relatively resistant, but sensitive to Ertapenem which the patient is currently on. Temperature up to 37.8 C over night, but otherwise she has been afebrile. She states that she is feeling better this morning. She complains of no pain. She has had some mild nausea, but Zofran has been helping that. All Other Systems: Reviewed and Negative Medications Current Inpatient Medications Medications (Trade) Dose Ordered Sig/Helder Route Start Time Stop Time Status Last Admin Dose Admin Heparin Sodium (Porcine) (Heparin Sq 5000 Unit/0.5ml) 5,000 unit Q12 SQ 08/06/16 09:00 09/05/16 08:59 08/07/16 08:58 5,000 UNIT Acetaminophen (Tylenol Tab) 650 mg Q4H PRN PO 08/05/16 21:00 09/04/16 20:59 08/06/16 16:11 650 MG Al Hydrox/Mg Hydrox/Simethicone (Maalox Max Susp) 15 ml Q4H PRN PO 08/05/16 21:00 09/04/16 20:59 Magnesium Hydroxide (Milk Of Magnesia Susp) 30 ml Q12H PRN PO 08/05/16 21:00 09/04/16 20:59 Ondansetron HCl (Zofran Inj) 4 mg Q6H PRN IV 08/05/16 21:00 09/04/16 20:59 08/07/16 04:12 4 MG Nitroglycerin (Nitrostat Tab) 0.4 mg UD PRN SL 08/05/16 21:00 09/04/16 20:59 Polyethylene (Miralax Powder Packet) 17 gm DAILY PRN PO 08/05/16 21:00 09/04/16 20:59 Aspirin (Ecotrin Tab) 81 mg QPM PO 08/06/16 21:00 09/05/16 20:59 08/06/16 20:09 81 MG Atorvastatin Calcium (Lipitor Tab) 80 mg QPM PO 08/06/16 21:00 09/05/16 20:59 08/06/16 20:09 80 MG Carvedilol (Coreg Tab) 25 mg BID PO 08/06/16 09:00 09/05/16 08:59 08/07/16 08:54 25 MG Clopidogrel Bisulfate (plAVix TAB) 75 mg QPM PO 08/06/16 21:00 09/05/16 20:59 08/06/16 20:09 75 MG Lorazepam (Ativan Tab) 0.5 mg Q6H PRN PO 08/05/16 21:15 09/04/16 21:14 Multivitamins/ Minerals (Multivitamin W/ Minerals Tab) 1 tab QAM PO 08/06/16 09:00 09/05/16 08:59 08/07/16 08:55 1 TAB Nystatin (Mycostatin Powder) 1 appln BID EXT 08/06/16 09:00 09/05/16 08:59 08/07/16 08:55 1 APPLN Pantoprazole Sodium (Protonix Tab) 40 mg QAM PO 08/06/16 09:00 09/05/16 08:59 08/07/16 08:55 40 MG Febuxostat (Uloric) 40 mg 1200 PO 08/06/16 12:00 09/05/16 11:59 08/06/16 11:50 40 MG Miscellaneous Information 1 ea 1 ea QS N/A 08/06/16 08:00 09/05/16 07:59 08/06/16 08:00 1 EA Ertapenem/Sodium Chloride (Invanz Iv/Nss 50ml) 55 ml @ 120 mls/hr Q24H IV 08/06/16 21:00 08/14/16 21:28 08/06/16 16:46 120 MLS/HR Vancomycin HCl 125 mg 125 mg QAM PO 08/06/16 09:00 08/16/16 08:59 08/07/16 08:53 125 MG Sodium Chloride (06/18 Nss 1000ml) 1,000 ml @ 75 mls/hr [id number] IV 08/05/16 23:45 09/04/16 23:44 08/07/16 02:25 75 MLS/HR Miscellaneous Information 1 ea UD PRN N/A 08/06/16 06:45 09/05/16 06:44 Raspberry (Raspberry Syrup 5ml Cup) 5 ml QAM PO 08/06/16 09:00 08/20/16 08:59 08/07/16 08:54 5 ML Objective Vital Signs Date Time Temp Pulse Resp B/P Pulse Ox O2 Delivery O2 Flow Rate FiO2 08/07/16 08:08 37.0 86 18 113/51 96 Nasal Cannula 2.0 08/07/16 04:00 Nasal Cannula 2.0 08/07/16 04:00 37.8 94 20 126/52 96 Nasal Cannula 2.0 08/07/16 00:03 37.0 71 22 111/58 98 Nasal Cannula 2.0 08/06/16 23:59 Nasal Cannula 2.0 08/06/16 20:05 37.0 80 109/60 97 08/06/16 20:00 98 Nasal Cannula 2.0 08/06/16 19:25 37.4 08/06/16 16:49 39.2 90 18 123/75 08/06/16 16:00 98 Nasal Cannula 2.0 08/06/16 15:39 38.7 90 18 147/70 98 Nasal Cannula 2.0 08/06/16 12:18 36.7 87 20 99/67 96 Nasal Cannula 2.0 08/06/16 12:00 99 Nasal Cannula 2.0 Physical Exam General Appearance: WD/WN, no apparent distress Eyes: normal inspection, sclerae normal ENT: hearing grossly normal Neck: supple, trachea midline Respiratory/Chest: chest non-tender, lungs clear, no respiratory distress, no accessory muscle use Cardiovascular: regular rate, rhythm Abdomen: normal bowel sounds, non tender, soft Neurologic/Psychiatric: alert, normal mood/affect Skin: normal color, warm/dry, no rash Laboratory Results RUN DATE: 08/07/16 [facility] LAB PAGE 1 RUN TIME: 951 Specimen Inquiry PATIENT: ELIEL MIR LOC: [place] U # : [id number] AGE/SX: 81/F ROOM: E212 REG : 08/05/[address]: John Sumner MD : [id number] BED: 1 DIS : STATUS: ADM IN TLOC: SPEC #: [id number] [place]: 08/05/16 STATUS: RES REQ #: [id number] RECD: 08/05/[address]: Michael Melendez M.D. SOURCE: URINE CATH ENTR: 08/05/[address]: Jan [facility]ervantes [facility] UR CATH Procedure Result Verified Site URINE CULTURE Preliminary 08/07/16-0952 Organism 1 KLEBSIELLA PNEUMONIAE COLONY COUNT >100,000 CFU/ml SENS SENSITIVITY TO FOLLOW SENSITIVITY RESULT INDICATES AN ORGANISM WITH AN EXTENDED SPECTRUM BETA LACTAMASE.THIS IS CONSIDERED A MULTIDRUG RESISTANT ORGANISM.PHONED TO MICU (AUDI DAVIS) ON 08/07/16 AT 0951 BY Denys Wilcox. Results were verbalized back to MER. RESULTS WERE ALSO CALLED TO [facility] INFECTION CONTROL ANSWERING MACHINE ON 08/07/16 BY MER. 1. KLEBSIELLA PNEUMONIAE Target Route Dose RX AB Cost M.I.C. IQ ------ ----- ------ -- ------ -------- - ------ TRIMET/SULFA R >2/38 AMPICILLIN/SUL R >16/8 CEFAZOLIN R >16 CEFOTAXIME R >32 CEFTRIAXONE R >32 CEFEPIME R >16 CEFUROXIME R >16 IMIPENEM S <=1 GENTAMICIN S <=4 TOBRAMYCIN I 8 AMIKACIN S <=16 CIPROFLOXACIN R >2 LEVOFLOXACIN R >4 ERTAPENEM S <=1 NITROFURANTOIN R >64 PIP/TAZO S <=16 S = SENSITIVE I = INTERMEDIATE R = RESISTANT Item Value Date Time Blood Culture Received 08/06/16 1633 Blood Pending Blood Culture Received 08/06/16 1625 Blood Pending Urine Culture - Preliminary Resulted 08/05/16 1835 Urine,Catheterized Klebsiella Pneumoniae Last 24 Hours Test 08/07/16 06:10 White Blood Count 10.61 K/uL Red Blood Count 2.63 M/uL Hemoglobin 8.2 g/dL Hematocrit 25.9 % Mean Corpuscular Volume 98.5 fL Mean Corpuscular Hemoglobin 31.2 pg Mean Corpuscular Hemoglobin Concent 31.7 g/dl Platelet Count 184 K/uL Mean Platelet Volume 9.2 fL RDW Standard Deviation 58.5 fL RDW Coefficient of Variation 16.3 % Neutrophils % (Manual) 88.4 % Lymphocytes % (Manual) 7.1 % Monocytes % (Manual) 2.7 % Basophils % (Manual) 1.8 % Neutrophils # (Manual) 9.38 K/uL Total Absolute Neutrophils 9.38 K/uL Lymphocytes # (Manual) 0.75 K/uL Total Absolute Lymphocytes 0.75 K/uL Monocytes # (Manual) 0.29 K/uL Basophils # (Manual) 0.19 K/uL Red Blood Cell Morphology Unremarkable Sodium Level 141 mmol/L Potassium Level 5.3 mmol/L Chloride Level 114 mmol/L Carbon Dioxide Level 14 mmol/L Anion Gap 13.0 mmol/L Blood Urea Nitrogen 58 mg/dl Creatinine 3.40 mg/dl Est Creatinine Clear Calc Drug Dose 11.9 ml/min Estimated GFR () 13.7 Estimated GFR (Non- 11.9 BUN/Creatinine Ratio 17.1 Random Glucose 108 mg/dl Calcium Level 8.5 mg/dl Assessment and Plan Patient with recurrent UTI's who presented to the ED with weakness. Resistant Klebsiella growing in urine culture which is sensitive to current IV Ertapenem. Recommend that this patient complete at least 2 weeks of IV Ertapenem. May extend to 3-4 weeks pending her improvement. She does have bilateral ureteral stents in place which seem to be likely infected with recurrence of similar organisms. She will need a PICC line. She will be OK for D/C from ID perspective when PICC line/IV abx are set up for home. PROVIDER ADDENDUM: Patient reviewed with Ms. Villarreal. Agree with above assessment.
[2016-08-07] MEDS: FEBUXOSTAT 40 MG TAB PO SCH (12:40)
[2016-08-07] MEDS: ASPIRIN 81 MG ECTAB PO SCH (20:29)
[2016-08-07] MEDS: CLOPIDOGREL BISULFATE 75 MG TAB PO SCH (20:29)
[2016-08-07] MEDS: ATORVASTATIN 40 MG TAB PO SCH (20:29)
--- NOTE | 2016-08-07 20:29 | Progress Note ---
Subjective Subjective Date of Service: Aug 07, 2016. Pt evaluation today including: conversation w/ patient, conversation w/ family , physical exam, chart review, lab review, review of studies, conversation w/ tax credit leasing consultant (katrina), review of inpatient medication list Notes: fevers last night Problem List Medical Problems: (1) Acute on chronic kidney failure Status: Acute (2) Acute renal failure Status: Acute (3) Altered mental status Status: Acute (4) Altered mental status Status: Acute (5) ARF (acute renal failure) Status: Acute (6) CRD (chronic renal disease) Status: Acute (7) Dehydration Status: Acute (8) Dehydration Status: Acute (9) Fever Status: Acute (10) Hyperkalemia Status: Acute (11) Hyperkalemia Status: Acute (12) Hypomagnesemia Status: Acute (13) PICC (peripherally inserted central catheter) in place Status: Acute (14) Pneumonia Status: Acute (15) Renal failure Status: Acute (16) Renal insufficiency Status: Acute (17) Renal insufficiency Status: Acute (18) Sepsis Status: Acute (19) Sepsis Status: Acute (20) Uremia Status: Acute (21) UTI (urinary tract infection) Status: Acute (22) UTI (urinary tract infection) Status: Acute (23) UTI (urinary tract infection) Status: Acute (24) Weakness Status: Acute (25) Weakness Status: Acute (26) Weakness Status: Acute (27) Weakness Status: Acute (28) Weakness Status: Acute Review of Systems Constitutional: + fever ENT: No hearing loss Respiratory: No cough Cardiac: No chest pain Abdomen: No pain Female : No dysuria Neurologic: No memory loss Endo: No fatigue Physical Exam Vital Signs Vital Signs Past 24 Hours: Date Time Temp Pulse Resp B/P Pulse Ox O2 Delivery O2 Flow Rate FiO2 08/07/16 20:00 37.3 78 26 117/59 98 Nasal Cannula 2.0 08/07/16 16:00 Nasal Cannula 2.0 08/07/16 15:51 37.3 81 30 131/67 99 Room Air 2.0 08/07/16 13:00 36.7 78 28 107/62 96 Nasal Cannula 2.0 08/07/16 12:00 Nasal Cannula 2.0 08/07/16 08:08 37.0 86 18 113/51 96 Nasal Cannula 2.0 08/07/16 08:00 Nasal Cannula 2.0 08/07/16 04:00 Nasal Cannula 2.0 08/07/16 04:00 37.8 94 20 126/52 96 Nasal Cannula 2.0 08/07/16 00:03 37.0 71 22 111/58 98 Nasal Cannula 2.0 08/06/16 23:59 Nasal Cannula 2.0 Physical Exam: General Appearance: WD/WN, no apparent distress Eyes: bilateral eyes normal inspection ENT: hearing grossly normal, pharynx normal Neck: supple, no JVD Respiratory/Chest: lungs clear, normal breath sounds Cardiovascular: regular rate, rhythm, no gallop Abdomen: normal bowel sounds, soft Extremities: non-tender, normal inspection Neurologic/Psychiatric: alert Skin: warm/dry Medications Medications: Current Inpatient Medications Medications (Trade) Dose Ordered Sig/Helder Route Start Time Stop Time Status Last Admin Dose Admin Heparin Sodium (Porcine) (Heparin Sq 5000 Unit/0.5ml) 5,000 unit Q12 SQ 08/06/16 09:00 09/05/16 08:59 08/07/16 08:58 5,000 UNIT Acetaminophen (Tylenol Tab) 650 mg Q4H PRN PO 08/05/16 21:00 09/04/16 20:59 08/06/16 16:11 650 MG Al Hydrox/Mg Hydrox/Simethicone (Maalox Max Susp) 15 ml Q4H PRN PO 08/05/16 21:00 09/04/16 20:59 Magnesium Hydroxide (Milk Of Magnesia Susp) 30 ml Q12H PRN PO 08/05/16 21:00 09/04/16 20:59 Ondansetron HCl (Zofran Inj) 4 mg Q6H PRN IV 08/05/16 21:00 09/04/16 20:59 08/07/16 04:12 4 MG Nitroglycerin (Nitrostat Tab) 0.4 mg UD PRN SL 08/05/16 21:00 09/04/16 20:59 Polyethylene (Miralax Powder Packet) 17 gm DAILY PRN PO 08/05/16 21:00 09/04/16 20:59 Aspirin (Ecotrin Tab) 81 mg QPM PO 08/06/16 21:00 09/05/16 20:59 08/06/16 20:09 81 MG Atorvastatin Calcium (Lipitor Tab) 80 mg QPM PO 08/06/16 21:00 09/05/16 20:59 08/06/16 20:09 80 MG Carvedilol (Coreg Tab) 25 mg BID PO 08/06/16 09:00 09/05/16 08:59 08/07/16 08:54 25 MG Clopidogrel Bisulfate (plAVix TAB) 75 mg QPM PO 08/06/16 21:00 09/05/16 20:59 08/06/16 20:09 75 MG Lorazepam (Ativan Tab) 0.5 mg Q6H PRN PO 08/05/16 21:15 09/04/16 21:14 Multivitamins/ Minerals (Multivitamin W/ Minerals Tab) 1 tab QAM PO 08/06/16 09:00 09/05/16 08:59 08/07/16 08:55 1 TAB Nystatin (Mycostatin Powder) 1 appln BID EXT 08/06/16 09:00 09/05/16 08:59 08/07/16 08:55 1 APPLN Pantoprazole Sodium (Protonix Tab) 40 mg QAM PO 08/06/16 09:00 09/05/16 08:59 08/07/16 08:55 40 MG Febuxostat (Uloric) 40 mg 1200 PO 08/06/16 12:00 09/05/16 11:59 08/07/16 12:40 40 MG Miscellaneous Information 1 ea 1 ea QS N/A 08/06/16 08:00 09/05/16 07:59 08/06/16 08:00 1 EA Ertapenem/Sodium Chloride (Invanz Iv/Nss 50ml) 55 ml @ 120 mls/hr Q24H IV 08/06/16 21:00 08/14/16 21:28 08/06/16 16:46 120 MLS/HR Vancomycin HCl 125 mg 125 mg QAM PO 08/06/16 09:00 08/16/16 08:59 08/07/16 08:53 125 MG Sodium Chloride (06/18 Nss 1000ml) 1,000 ml @ 75 mls/hr [id number] IV 08/05/16 23:45 09/04/16 23:44 08/07/16 16:30 75 MLS/HR Miscellaneous Information 1 ea UD PRN N/A 08/06/16 06:45 09/05/16 06:44 Raspberry (Raspberry Syrup 5ml Cup) 5 ml QAM PO 08/06/16 09:00 08/20/16 08:59 08/07/16 08:54 5 ML Laboratory Data Labs: Last 24 Hours Test 08/07/16 06:10 White Blood Count 10.61 K/uL Red Blood Count 2.63 M/uL Hemoglobin 8.2 g/dL Hematocrit 25.9 % Mean Corpuscular Volume 98.5 fL Mean Corpuscular Hemoglobin 31.2 pg Mean Corpuscular Hemoglobin Concent 31.7 g/dl Platelet Count 184 K/uL Mean Platelet Volume 9.2 fL RDW Standard Deviation 58.5 fL RDW Coefficient of Variation 16.3 % Neutrophils % (Manual) 88.4 % Lymphocytes % (Manual) 7.1 % Monocytes % (Manual) 2.7 % Basophils % (Manual) 1.8 % Neutrophils # (Manual) 9.38 K/uL Total Absolute Neutrophils 9.38 K/uL Lymphocytes # (Manual) 0.75 K/uL Total Absolute Lymphocytes 0.75 K/uL Monocytes # (Manual) 0.29 K/uL Basophils # (Manual) 0.19 K/uL Red Blood Cell Morphology Unremarkable Sodium Level 141 mmol/L Potassium Level 5.3 mmol/L Chloride Level 114 mmol/L Carbon Dioxide Level 14 mmol/L Anion Gap 13.0 mmol/L Blood Urea Nitrogen 58 mg/dl Creatinine 3.40 mg/dl Est Creatinine Clear Calc Drug Dose 11.9 ml/min Estimated GFR () 13.7 Estimated GFR (Non- 11.9 BUN/Creatinine Ratio 17.1 Random Glucose 108 mg/dl Calcium Level 8.5 mg/dl Assessment and Plan 81-year-old female, presenting with acute weakness, reminiscent of previous urinary tract infections. She has had a complicated course with multiple urinary tract infections in the recent past. She was most recently discharged on 07/21/2016, after a Klebsiella UTI, treated with IV ertapenem. Bacterial recurrent urinary tract infection, hx of klebsiella, fevers check blood cultures urine culture - klebsiella, sensitive to envanz She has not been on any UTI suppressive therapy as an outpatient, and her last Ertapenem given in the emergency department; most recent UTI in early July was also treated as such with repeat UA negative (see cultures from 07/19/2016) cont IV ertapenem vis picc line at least 2 weeks appreciated ID recs Acute kidney injury on CKD Stage IV Multifactorial: Combination of repeated urinary tract infections, and interstitial cystitis Creatinine 3.6 Review of creatinines for the past several months reveal new baseline approximately 3.1-3.2 Avoid nephrotoxic medication; renally dose all necessary nephrotoxic agents continue IVF Hyperkalemia Potassium on arrival 6.0 improved to 5.4 Hypomagnesemia Replaced 2 g of MgSulfate; and recheck Mg level 1 hour after repletion History of C. difficile infection Patient is on by mouth vancomycin prior to arrival Reviewed most recent note by Dr. Griffin on 08/01/2016: Recommended continuing on with by mouth vancomycin Hypernatremia Na with repeat BMP, came back at 146 Patient is noted to have periodic chronic hypernatremia IV fluids 1/2 NSS Chronic systolic congestive heart failure EF 35-40%, dated May 2016 Daily weights with ins and outs Clinically no evidence of overt failure at this time Continue carvedilol; ACEis contraindicated in light of chronic kidney dysfunction Patient is currently not on the loop diuretic at home, and per has been stable in this regard Will monitor fluid status daily and administer Lasix on an as-needed basis DVT prophylaxis Heparin 5000 units subcutaneous twice a day CODI stockings SCD to the knees CODE STATUS Level I full code PT/OT miriam Patient notes that she does get [facility], Saturday to Saturday, possible d/ c home next few days
[2016-08-07] MEDS: ERTAPENEM IV 500 MG in SODIUM CHLORIDE 0.9% 50ML 50 ML IV SCH (20:30)
[2016-08-08] VITALS (13 sets, daily range): BP systolic 104–122; BP diastolic 55–71; PULSE 67–77; TEMP 36.3–36.6; O2SAT 98–100
[2016-08-08] MEDS: SODIUM CHLORIDE 0.45% 1000ML 1,000 ML IV SCH (05:05)
--- NOTE | 2016-08-08 07:50 | DIAGNOSTIC IMAGING REPORT ---
CHEST ONE VIEW PORTABLE CLINICAL HISTORY: CHECK PICC PLACEMENT COMPARISON STUDY: 08/05/2016 FINDINGS: The cardiac and mediastinal contours remain stable. There is a left subclavian pacer/defibrillator present. There is stable blunting of the left lateral costophrenic angle. There are minor left basilar atelectatic changes. There is no lobar consolidation. There is been interval insertion of a right-sided PICC catheter. The tip projects over the right atrium. 4 superior vena caval placement, the catheter should be pulled back proximally 5 cm.[ IMPRESSION: Interval insertion of a right-sided PICC catheter the tip of which projects over the right atrium. Electronically signed by: Gagan Joel M.D. 08/08/2016 7:48 AM Dictated Date/Time: 08/08/2016 7:47 AM
[2016-08-08] MEDS: HEPARIN SOD 5000 UNIT/0.5 ML CARP SQ SCH ×2 (09:00→20:56)
[2016-08-08] MEDS: NYSTATIN POWDER 15GM BTL EXT SCH ×2 (09:00→20:45)
[2016-08-08 10:14] LABS: HEMATOCRIT 23.5 % (37-47); MEAN CELL VOLUME 98.3 fL (80-100); MEAN CORPUSCULAR HGB CONC 31.5 g/dl (32-36); MEAN PLATELET VOLUME 8.8 fL (7.4-10.4); PLATELET COUNT 159 K/uL (130-400); RED BLOOD COUNT 2.39 M/uL (4.2-5.4); WHITE BLOOD COUNT 6.45 K/uL (4.8-10.8)
[2016-08-08] MEDS: VANCOMYCIN HCL 125 MG/2.5ML SOLN PO SCH (10:27)
[2016-08-08] MEDS: RASPBERRY SYRUP 5 ML UDP PO SCH (10:27)
[2016-08-08] MEDS: CEROVITE ADV FORMULA TAB PO SCH (10:28)
[2016-08-08] MEDS: PANTOprazole SOD 40 MG TAB PO SCH (10:28)
[2016-08-08] MEDS: CARVEDILOL 25 MG TAB PO SCH ×2 (10:29→20:48)
[2016-08-08 10:38] LABS: CREATININE 3.5 mg/dl (0.60-1.20); POTASSIUM 4.9 mmol/L (3.5-5.1)
[2016-08-08 11:30] LABS: BASO % 0.5 %; BASO ABS # 0.03 K/uL (0-0.2); COMPLETE YES; ECHINOCYTES 1+; EOS % 3.4 %; IG% 5.6 %; LYMPH % 19.4 %; LYMPH ABS # 1.25 K/uL (1.2-3.4); MONO % 6.8 %; NEUT % 64.3 %
[2016-08-08] MEDS: LOTEMAX~ORDER AWAITING ACTION SCH ×3 (12:05→23:24)
[2016-08-08] MEDS: FEBUXOSTAT 40 MG TAB PO SCH (12:07)
--- NOTE | 2016-08-08 16:23 | Infectious Disease Progress Nt ---
Progress Note Date of Service Aug 08, 2016. Subjective Pt evaluation today including: conversation w/ patient, conversation w/ family (), physical exam, chart review, lab review, review of studies, review of inpatient medication list Patient's Hgb was 7.4 this morning and she is receiving a blood transfusion this afternoon. She is feeling weak today but slightly better than prior. WBC count continues to be stable. Creatinine continues to be 3.50. Blood cultures are showing NGTD. Urine culture finalized with Klebsiella. PICC line in place RUE. She continues on IV Ertapenem. Repeat CXR shows PICC line placement All Other Systems: Reviewed and Negative Medications Current Inpatient Medications Medications (Trade) Dose Ordered Sig/Helder Route Start Time Stop Time Status Last Admin Dose Admin Heparin Sodium (Porcine) (Heparin Sq 5000 Unit/0.5ml) 5,000 unit Q12 SQ 08/06/16 09:00 09/05/16 08:59 08/08/16 09:00 5,000 UNIT Acetaminophen (Tylenol Tab) 650 mg Q4H PRN PO 08/05/16 21:00 09/04/16 20:59 08/06/16 16:11 650 MG Al Hydrox/Mg Hydrox/Simethicone (Maalox Max Susp) 15 ml Q4H PRN PO 08/05/16 21:00 09/04/16 20:59 Magnesium Hydroxide (Milk Of Magnesia Susp) 30 ml Q12H PRN PO 08/05/16 21:00 09/04/16 20:59 Ondansetron HCl (Zofran Inj) 4 mg Q6H PRN IV 08/05/16 21:00 09/04/16 20:59 08/07/16 04:12 4 MG Nitroglycerin (Nitrostat Tab) 0.4 mg UD PRN SL 08/05/16 21:00 09/04/16 20:59 Polyethylene (Miralax Powder Packet) 17 gm DAILY PRN PO 08/05/16 21:00 09/04/16 20:59 Aspirin (Ecotrin Tab) 81 mg QPM PO 08/06/16 21:00 09/05/16 20:59 08/07/16 20:29 81 MG Atorvastatin Calcium (Lipitor Tab) 80 mg QPM PO 08/06/16 21:00 09/05/16 20:59 08/07/16 20:29 80 MG Carvedilol (Coreg Tab) 25 mg BID PO 08/06/16 09:00 09/05/16 08:59 08/08/16 10:29 25 MG Clopidogrel Bisulfate (plAVix TAB) 75 mg QPM PO 08/06/16 21:00 09/05/16 20:59 08/07/16 20:29 75 MG Lorazepam (Ativan Tab) 0.5 mg Q6H PRN PO 08/05/16 21:15 09/04/16 21:14 Multivitamins/ Minerals (Multivitamin W/ Minerals Tab) 1 tab QAM PO 08/06/16 09:00 09/05/16 08:59 08/08/16 10:28 1 TAB Nystatin (Mycostatin Powder) 1 appln BID EXT 08/06/16 09:00 09/05/16 08:59 08/08/16 09:00 1 APPLN Pantoprazole Sodium (Protonix Tab) 40 mg QAM PO 08/06/16 09:00 09/05/16 08:59 08/08/16 10:28 40 MG Febuxostat (Uloric) 40 mg 1200 PO 08/06/16 12:00 09/05/16 11:59 08/08/16 12:07 40 MG Miscellaneous Information (Order Awaiting Action) 1 ea QS N/A 08/06/16 08:00 09/05/16 07:59 08/06/16 08:00 1 EA Vancomycin HCl 125 mg 125 mg QAM PO 08/06/16 09:00 08/16/16 08:59 08/08/16 10:27 125 MG Sodium Chloride (1/2 Nss 1000ml) 1,000 ml @ 75 mls/hr [id number] IV 08/05/16 23:45 09/04/16 23:44 08/08/16 05:05 75 MLS/HR Miscellaneous Information 1 ea UD PRN N/A 08/06/16 06:45 09/05/16 06:44 Raspberry 5 ml 5 ml QAM PO 08/06/16 09:00 08/20/16 08:59 08/08/16 10:27 5 ML Ertapenem 500 mg/ Sodium Chloride 55 ml @ 120 mls/hr TODAY@1900 IV 08/08/16 19:00 08/08/16 19:28 Ertapenem/Sodium Chloride (Invanz Iv/Nss 50ml) 55 ml @ 120 mls/hr Q24H IV 08/09/16 14:00 08/14/16 21:00 Objective Vital Signs Date Time Temp Pulse Resp B/P Pulse Ox O2 Delivery O2 Flow Rate FiO2 08/08/16 15:50 36.6 72 17 122/71 100 2.0 08/08/16 15:17 36.6 67 17 114/68 100 2.0 08/08/16 14:54 36.3 71 18 115/69 08/08/16 14:35 36.5 71 16 108/65 08/08/16 14:15 36.3 71 18 104/62 08/08/16 12:04 36.5 71 16 113/65 100 Nasal Cannula 2.0 08/08/16 11:37 36.6 70 20 98 2.0 08/08/16 08:00 Nasal Cannula 2.0 08/08/16 07:38 36.6 70 20 120/63 98 Nasal Cannula 2.0 08/08/16 04:25 36.5 74 24 105/55 99 Nasal Cannula 3.0 08/08/16 04:00 Nasal Cannula 2.0 08/08/16 00:01 99 Nasal Cannula 2.0 08/07/16 23:40 37.0 72 25 114/62 99 Nasal Cannula 2.0 08/07/16 20:00 98 Nasal Cannula 2.0 08/07/16 20:00 37.3 78 26 117/59 98 Nasal Cannula 2.0 Physical Exam General Appearance: WD/WN, no apparent distress Eyes: normal inspection, sclerae normal ENT: hearing grossly normal Neck: supple, trachea midline Respiratory/Chest: no respiratory distress, no accessory muscle use Cardiovascular: regular rate, rhythm Neurologic/Psychiatric: alert, normal mood/affect Skin: normal color, warm/dry, no rash Laboratory Results RUN DATE: 08/07/16 [facility] LAB PAGE 1 RUN TIME: 1050 Specimen Inquiry PATIENT: ELIEL MIR LOC: [place] U # : [id number] AGE/SX: 81/F ROOM: E212 REG : 08/05/[address]: John Sumner MD : [id number] BED: 1 DIS : STATUS: ADM IN TLOC: SPEC #: [id number] [place]: 08/05/16 STATUS: COMP REQ #: [id number] RECD: 08/05/[address]: Michael Melendez M.D. SOURCE: URINE CATH ENTR: 08/05/[address] [facility] [address]: Jan Cervantes M.D. [facility]: ORDERED: CULTURE UR CATH Procedure Result Verified Site URINE CULTURE Final 08/07/16-1050 Organism 1 KLEBSIELLA PNEUMONIAE COLONY COUNT >100,000 CFU/ml SENS SENSITIVITY TO FOLLOW SENSITIVITY RESULT INDICATES AN ORGANISM WITH AN EXTENDED SPECTRUM BETA LACTAMASE.THIS IS CONSIDERED A MULTIDRUG RESISTANT ORGANISM.PHONED TO MICU (AUDI DAVIS) ON 08/07/16 AT 0958 BY Denys Wilcox. Results were verbalized back to MER. RESULTS WERE ALSO CALLED TO [facility] INFECTION CONTROL ANSWERING MACHINE ON 08/07/16 BY MER. 1. KLEBSIELLA PNEUMONIAE Target Route Dose RX AB Cost M.I.C. IQ ------ ----- ------ -- ------ -------- - ------ TRIMET/SULFA R >2/38 AMPICILLIN/SUL R >16/8 CEFAZOLIN R >16 CEFOTAXIME R >32 CEFTRIAXONE R >32 CEFEPIME R >16 CEFUROXIME R >16 IMIPENEM S <=1 GENTAMICIN S <=4 TOBRAMYCIN I 8 AMIKACIN S <=16 CIPROFLOXACIN R >2 LEVOFLOXACIN R >4 ERTAPENEM S <=1 NITROFURANTOIN R >64 PIP/TAZO S <=16 S = SENSITIVE I = INTERMEDIATE R = RESISTANT CHEST ONE VIEW PORTABLE CLINICAL HISTORY: CHECK PICC PLACEMENT COMPARISON STUDY: 08/05/2016 FINDINGS: The cardiac and mediastinal contours remain stable. There is a left subclavian pacer/defibrillator present. There is stable blunting of the left lateral costophrenic angle. There are minor left basilar atelectatic changes. There is no lobar consolidation. There is been interval insertion of a right-sided PICC catheter. The tip projects over the right atrium. 4 superior vena caval placement, the catheter should be pulled back proximally 5 cm.[ IMPRESSION: Interval insertion of a right-sided PICC catheter the tip of which projects over the right atrium. Item Value Date Time Blood Culture - Preliminary Resulted 08/06/16 1633 Blood NO GROWTH TO DATE. Blood Culture - Preliminary Resulted 08/06/16 1625 Blood NO GROWTH TO DATE. Urine Culture - Final Complete 08/05/16 1835 Urine,Catheterized Klebsiella Pneumoniae Last 24 Hours Test 08/08/16 10:00 White Blood Count 6.45 K/uL Red Blood Count 2.39 M/uL Hemoglobin 7.4 g/dL Hematocrit 23.5 % Mean Corpuscular Volume 98.3 fL Mean Corpuscular Hemoglobin 31.0 pg Mean Corpuscular Hemoglobin Concent 31.5 g/dl Platelet Count 159 K/uL Mean Platelet Volume 8.8 fL Neutrophils (%) (Auto) 64.3 % Lymphocytes (%) (Auto) 19.4 % Monocytes (%) (Auto) 6.8 % Eosinophils (%) (Auto) 3.4 % Basophils (%) (Auto) 0.5 % Neutrophils # (Auto) 4.15 K/uL Lymphocytes # (Auto) 1.25 K/uL Monocytes # (Auto) 0.44 K/uL Eosinophils # (Auto) 0.22 K/uL Basophils # (Auto) 0.03 K/uL RDW Standard Deviation 58.6 fL RDW Coefficient of Variation 16.3 % Immature Granulocyte % (Auto) 5.6 % Immature Granulocyte # (Auto) 0.36 K/uL Echinocytes 1+ Sodium Level 141 mmol/L Potassium Level 4.9 mmol/L Chloride Level 114 mmol/L Carbon Dioxide Level 16 mmol/L Anion Gap 11.0 mmol/L Blood Urea Nitrogen 53 mg/dl Creatinine 3.50 mg/dl Est Creatinine Clear Calc Drug Dose 11.7 ml/min Estimated GFR () 13.3 Estimated GFR (Non- 11.4 BUN/Creatinine Ratio 15.0 Random Glucose 112 mg/dl Calcium Level 8.0 mg/dl Assessment and Plan Patient with recurrent UTI's who presented to the ED with weakness. Resistant Klebsiella growing in urine culture which is sensitive to current IV Ertapenem. Recommend that this patient complete at least 2 weeks of IV Ertapenem. May extend to 3-4 weeks pending her improvement. She does have bilateral ureteral stents in place which seem to be likely infected with recurrence of similar organisms. PICC line in place. Will discuss with Dr. Reeves regarding bilateral stents- the patient's states that she is anticipated to have these replaced in August. She is OK for D/C when medically stable. PROVIDER ADDENDUM: Patient reviewed with Ms. Villarreal. Agree with above assessment. Agree that prolonged IV antibiotics likely necessary given multiple recurrences of Klebsiella infection.
[2016-08-08] MEDS ORDERED: NURSING VERBAL MED ORDER ONE (17:30)
--- NOTE | 2016-08-08 18:27 | Progress Note ---
Subjective Subjective Date of Service: Aug 08, 2016. Pt evaluation today including: conversation w/ patient, conversation w/ family , physical exam, chart review, review of studies, review of inpatient medication list Problem List Medical Problems: (1) Acute on chronic kidney failure Status: Acute (2) Acute renal failure Status: Acute (3) Altered mental status Status: Acute (4) Altered mental status Status: Acute (5) ARF (acute renal failure) Status: Acute (6) CRD (chronic renal disease) Status: Acute (7) Dehydration Status: Acute (8) Dehydration Status: Acute (9) Fever Status: Acute (10) Hyperkalemia Status: Acute (11) Hyperkalemia Status: Acute (12) Hypomagnesemia Status: Acute (13) PICC (peripherally inserted central catheter) in place Status: Acute (14) Pneumonia Status: Acute (15) Renal failure Status: Acute (16) Renal insufficiency Status: Acute (17) Renal insufficiency Status: Acute (18) Sepsis Status: Acute (19) Sepsis Status: Acute (20) Uremia Status: Acute (21) UTI (urinary tract infection) Status: Acute (22) UTI (urinary tract infection) Status: Acute (23) UTI (urinary tract infection) Status: Acute (24) Weakness Status: Acute (25) Weakness Status: Acute (26) Weakness Status: Acute (27) Weakness Status: Acute (28) Weakness Status: Acute Review of Systems Constitutional: No fever ENT: No hearing loss Respiratory: No cough Abdomen: No pain Musculoskeletal: No joint pain Female : No dysuria Neurologic: No memory loss Psychiatric: No depression symptoms Heme: No abnormal bleeding/bruising Endo: No fatigue Skin: No rash Physical Exam Vital Signs Vital Signs Past 24 Hours: Date Time Temp Pulse Resp B/P Pulse Ox O2 Delivery O2 Flow Rate FiO2 08/08/16 17:49 36.5 76 18 116/65 99 3.0 08/08/16 16:54 36.5 77 19 111/65 08/08/16 15:50 36.6 72 17 122/71 100 2.0 08/08/16 15:17 36.6 67 17 114/68 100 2.0 08/08/16 14:54 36.3 71 18 115/69 08/08/16 14:35 36.5 71 16 108/65 08/08/16 14:15 36.3 71 18 104/62 08/08/16 12:04 36.5 71 16 113/65 100 Nasal Cannula 2.0 08/08/16 11:37 36.6 70 20 98 2.0 08/08/16 08:00 Nasal Cannula 2.0 08/08/16 07:38 36.6 70 20 120/63 98 Nasal Cannula 2.0 08/08/16 04:25 36.5 74 24 105/55 99 Nasal Cannula 3.0 08/08/16 04:00 Nasal Cannula 2.0 08/08/16 00:01 99 Nasal Cannula 2.0 08/07/16 23:40 37.0 72 25 114/62 99 Nasal Cannula 2.0 08/07/16 20:00 98 Nasal Cannula 2.0 08/07/16 20:00 37.3 78 26 117/59 98 Nasal Cannula 2.0 Physical Exam: General Appearance: WD/WN, no apparent distress Eyes: bilateral eyes normal inspection ENT: hearing grossly normal, pharynx normal Neck: supple, no JVD Respiratory/Chest: lungs clear, normal breath sounds Cardiovascular: regular rate, rhythm, no JVD Abdomen: normal bowel sounds, soft Extremities: normal range of motion, normal inspection Neurologic/Psychiatric: alert Skin: normal color Medications Medications: Current Inpatient Medications Medications (Trade) Dose Ordered Sig/Helder Route Start Time Stop Time Status Last Admin Dose Admin Heparin Sodium (Porcine) (Heparin Sq 5000 Unit/0.5ml) 5,000 unit Q12 SQ 08/06/16 09:00 09/05/16 08:59 08/08/16 09:00 5,000 UNIT Acetaminophen (Tylenol Tab) 650 mg Q4H PRN PO 08/05/16 21:00 09/04/16 20:59 08/06/16 16:11 650 MG Al Hydrox/Mg Hydrox/Simethicone (Maalox Max Susp) 15 ml Q4H PRN PO 08/05/16 21:00 09/04/16 20:59 Magnesium Hydroxide (Milk Of Magnesia Susp) 30 ml Q12H PRN PO 08/05/16 21:00 09/04/16 20:59 Ondansetron HCl (Zofran Inj) 4 mg Q6H PRN IV 08/05/16 21:00 09/04/16 20:59 08/07/16 04:12 4 MG Nitroglycerin (Nitrostat Tab) 0.4 mg UD PRN SL 08/05/16 21:00 09/04/16 20:59 Polyethylene (Miralax Powder Packet) 17 gm DAILY PRN PO 08/05/16 21:00 09/04/16 20:59 Aspirin (Ecotrin Tab) 81 mg QPM PO 08/06/16 21:00 09/05/16 20:59 08/07/16 20:29 81 MG Atorvastatin Calcium (Lipitor Tab) 80 mg QPM PO 08/06/16 21:00 09/05/16 20:59 08/07/16 20:29 80 MG Carvedilol (Coreg Tab) 25 mg BID PO 08/06/16 09:00 09/05/16 08:59 08/08/16 10:29 25 MG Clopidogrel Bisulfate (plAVix TAB) 75 mg QPM PO 08/06/16 21:00 09/05/16 20:59 08/07/16 20:29 75 MG Lorazepam (Ativan Tab) 0.5 mg Q6H PRN PO 08/05/16 21:15 09/04/16 21:14 Multivitamins/ Minerals (Multivitamin W/ Minerals Tab) 1 tab QAM PO 08/06/16 09:00 09/05/16 08:59 08/08/16 10:28 1 TAB Nystatin (Mycostatin Powder) 1 appln BID EXT 08/06/16 09:00 09/05/16 08:59 08/08/16 09:00 1 APPLN Pantoprazole Sodium (Protonix Tab) 40 mg QAM PO 08/06/16 09:00 09/05/16 08:59 08/08/16 10:28 40 MG Febuxostat (Uloric) 40 mg 1200 PO 08/06/16 12:00 09/05/16 11:59 08/08/16 12:07 40 MG Miscellaneous Information (Order Awaiting Action) 1 ea QS N/A 08/06/16 08:00 09/05/16 07:59 08/08/16 16:20 1 EA Vancomycin HCl (Vancomycin Oral Soln) 125 mg QAM PO 08/06/16 09:00 08/16/16 08:59 08/08/16 10:27 125 MG Miscellaneous Information 1 ea UD PRN N/A 08/06/16 06:45 09/05/16 06:44 Raspberry 5 ml 5 ml QAM PO 08/06/16 09:00 08/20/16 08:59 08/08/16 10:27 5 ML Ertapenem 500 mg/ Sodium Chloride 55 ml @ 120 mls/hr TODAY@1900 IV 08/08/16 19:00 08/08/16 19:28 Ertapenem/Sodium Chloride (Invanz Iv/Nss 50ml) 55 ml @ 120 mls/hr Q24H IV 08/09/16 14:00 08/14/16 21:00 Heparin Sodium (Porcine) (Heparin 10 Unit/ ml 5 ml Flush) 5 ml PRN PRN FLUSH 08/08/16 18:00 09/07/16 17:59 Laboratory Data Labs: Last 24 Hours Test 08/08/16 10:00 White Blood Count 6.45 K/uL Red Blood Count 2.39 M/uL Hemoglobin 7.4 g/dL Hematocrit 23.5 % Mean Corpuscular Volume 98.3 fL Mean Corpuscular Hemoglobin 31.0 pg Mean Corpuscular Hemoglobin Concent 31.5 g/dl Platelet Count 159 K/uL Mean Platelet Volume 8.8 fL Neutrophils (%) (Auto) 64.3 % Lymphocytes (%) (Auto) 19.4 % Monocytes (%) (Auto) 6.8 % Eosinophils (%) (Auto) 3.4 % Basophils (%) (Auto) 0.5 % Neutrophils # (Auto) 4.15 K/uL Lymphocytes # (Auto) 1.25 K/uL Monocytes # (Auto) 0.44 K/uL Eosinophils # (Auto) 0.22 K/uL Basophils # (Auto) 0.03 K/uL RDW Standard Deviation 58.6 fL RDW Coefficient of Variation 16.3 % Immature Granulocyte % (Auto) 5.6 % Immature Granulocyte # (Auto) 0.36 K/uL Echinocytes 1+ Sodium Level 141 mmol/L Potassium Level 4.9 mmol/L Chloride Level 114 mmol/L Carbon Dioxide Level 16 mmol/L Anion Gap 11.0 mmol/L Blood Urea Nitrogen 53 mg/dl Creatinine 3.50 mg/dl Est Creatinine Clear Calc Drug Dose 11.7 ml/min Estimated GFR () 13.3 Estimated GFR (Non- 11.4 BUN/Creatinine Ratio 15.0 Random Glucose 112 mg/dl Calcium Level 8.0 mg/dl Assessment and Plan 81-year-old female, presenting with acute weakness, reminiscent of previous urinary tract infections. She has had a complicated course with multiple urinary tract infections in the recent past. She was most recently discharged on 07/21/2016, after a Klebsiella UTI, treated with IV ertapenem. Bacterial recurrent urinary tract infection, hx of klebsiella, fevers blood cultures neg urine culture - klebsiella, sensitive to envanz She has not been on any UTI suppressive therapy as an outpatient, and her last Ertapenem given in the emergency department; most recent UTI in early July was also treated as such with repeat UA negative (see cultures from 07/19/2016) cont IV ertapenem vis picc line at least 2 weeks appreciated ID recs Acute kidney injury on CKD Stage IV Multifactorial: Combination of repeated urinary tract infections, and interstitial cystitis Creatinine 3.6 Review of creatinines for the past several months reveal new baseline approximately 3.1-3.2 Avoid nephrotoxic medication; renally dose all necessary nephrotoxic agents continue IVF Anemia of chronic kidney dz, give 1 units PRBCs, check CBC in am Hyperkalemia Potassium on arrival 6.0 improved to 4.9 Hypomagnesemia Replaced 2 g of MgSulfate; and recheck Mg level 1 hour after repletion History of C. difficile infection Patient is on by mouth vancomycin prior to arrival Reviewed most recent note by Dr. Griffin on 08/01/2016: Recommended continuing on with by mouth vancomycin Hypernatremia Na with repeat BMP, came back at 146 Patient is noted to have periodic chronic hypernatremia IV fluids 1/2 NSS Chronic systolic congestive heart failure EF 35-40%, dated May 2016 Daily weights with ins and outs Clinically no evidence of overt failure at this time Continue carvedilol; ACEis contraindicated in light of chronic kidney dysfunction Patient is currently not on the loop diuretic at home, and per has been stable in this regard Will monitor fluid status daily and administer Lasix on an as-needed basis DVT prophylaxis Heparin 5000 units subcutaneous twice a day CODI stockings SCD to the knees CODE STATUS Level I full code PT/OT eval Patient notes that she does get [facility], Saturday to Saturday, possible d/ c home tomorrow, wants to take her home despite PT eval recommending SNF
[2016-08-08] MEDS ORDERED: ERTAPENEM IV 500 MG in SODIUM CHLORIDE 0.9% 50ML 50 ML IV SCH (19:00)
[2016-08-08] MEDS: CLOPIDOGREL BISULFATE 75 MG TAB PO SCH (20:48)
[2016-08-08] MEDS: ATORVASTATIN 40 MG TAB PO SCH (20:48)
[2016-08-08] MEDS: ASPIRIN 81 MG ECTAB PO SCH (20:48)
[2016-08-09 00:14] VITALS: BP 116/63; PULSE 83; TEMP 37.2; O2SAT 99
[2016-08-09 05:57] LABS: HEMATOCRIT 25.8 % (37-47); MEAN CELL VOLUME 93.8 fL (80-100); MEAN CORPUSCULAR HEMOGLOBIN 30.9 pg (25-34); MEAN CORPUSCULAR HGB CONC 32.9 g/dl (32-36); MEAN PLATELET VOLUME 8.9 fL (7.4-10.4); PLATELET COUNT 157 K/uL (130-400); RED BLOOD COUNT 2.75 M/uL (4.2-5.4); WHITE BLOOD COUNT 7.55 K/uL (4.8-10.8)
[2016-08-09 06:22] LABS: BASO % 0.3 %; BASO ABS # 0.02 K/uL (0-0.2); COMPLETE YES; ECHINOCYTES 1+; IG% 6.4 %; LYMPH % 20.7 %; LYMPH ABS # 1.56 K/uL (1.2-3.4); MONO % 7.5 %; NEUT % 62.1 %
[2016-08-09 06:28] LABS: BUN/CREATININE RATIO 14.8 (10-20); CREATININE 3.5 mg/dl (0.60-1.20); POTASSIUM 5.2 mmol/L (3.5-5.1)
[2016-08-09 07:31] VITALS: BP 109/68; PULSE 72; TEMP 36.3; O2SAT 99
[2016-08-09] MEDS: RASPBERRY SYRUP 5 ML UDP PO SCH (08:09)
[2016-08-09] MEDS: VANCOMYCIN HCL 125 MG/2.5ML SOLN PO SCH (08:09)
[2016-08-09] MEDS: CARVEDILOL 25 MG TAB PO SCH ×2 (08:09→20:50)
[2016-08-09] MEDS: PANTOprazole SOD 40 MG TAB PO SCH (08:10)
[2016-08-09] MEDS: CEROVITE ADV FORMULA TAB PO SCH (08:11)
[2016-08-09] MEDS: NYSTATIN POWDER 15GM BTL EXT SCH ×2 (08:14→20:41)
[2016-08-09] MEDS: LOTEMAX~ORDER AWAITING ACTION SCH ×2 (08:14→16:00)
[2016-08-09] MEDS: HEPARIN SOD 5000 UNIT/0.5 ML CARP SQ SCH ×2 (08:19→20:52)
[2016-08-09 10:32] VITALS: BP 126/80; PULSE 71; TEMP 36.5; O2SAT 99
[2016-08-09] MEDS: FEBUXOSTAT 40 MG TAB PO SCH (11:52)
[2016-08-09] MEDS: ERTAPENEM IV 500 MG in SODIUM CHLORIDE 0.9% 50ML 50 ML IV SCH (14:43)
--- NOTE | 2016-08-09 15:07 | Progress Note ---
Subjective Subjective Date of Service: Aug 09, 2016. Pt evaluation today including: conversation w/ patient, conversation w/ family , physical exam, chart review, review of studies, review of inpatient medication list Problem List Medical Problems: (1) Acute on chronic kidney failure Status: Acute (2) Acute renal failure Status: Acute (3) Altered mental status Status: Acute (4) Altered mental status Status: Acute (5) ARF (acute renal failure) Status: Acute (6) CRD (chronic renal disease) Status: Acute (7) Dehydration Status: Acute (8) Dehydration Status: Acute (9) Fever Status: Acute (10) Hyperkalemia Status: Acute (11) Hyperkalemia Status: Acute (12) Hypomagnesemia Status: Acute (13) PICC (peripherally inserted central catheter) in place Status: Acute (14) Pneumonia Status: Acute (15) Renal failure Status: Acute (16) Renal insufficiency Status: Acute (17) Renal insufficiency Status: Acute (18) Sepsis Status: Acute (19) Sepsis Status: Acute (20) Uremia Status: Acute (21) UTI (urinary tract infection) Status: Acute (22) UTI (urinary tract infection) Status: Acute (23) UTI (urinary tract infection) Status: Acute (24) Weakness Status: Acute (25) Weakness Status: Acute (26) Weakness Status: Acute (27) Weakness Status: Acute (28) Weakness Status: Acute Review of Systems Constitutional: No fever Eyes: No worsening of vision ENT: No hearing loss Respiratory: No cough Cardiac: No chest pain Abdomen: No pain Female : No dysuria Neurologic: No memory loss Psychiatric: No depression symptoms Endo: No fatigue Physical Exam Vital Signs Vital Signs Past 24 Hours: Date Time Temp Pulse Resp B/P Pulse Ox O2 Delivery O2 Flow Rate FiO2 08/09/16 10:32 36.5 71 24 126/80 99 Room Air 2.0 08/09/16 08:00 Nasal Cannula 2.0 08/09/16 07:39 Nasal Cannula 2.0 08/09/16 07:31 36.3 72 22 109/68 99 Nasal Cannula 2.0 08/09/16 01:00 Nasal Cannula 2.0 08/09/16 00:14 37.2 83 20 116/63 99 Nasal Cannula 2.0 08/08/16 20:46 71 111/62 08/08/16 17:49 36.5 76 18 116/65 99 3.0 08/08/16 16:54 36.5 77 19 111/65 08/08/16 16:00 99 Nasal Cannula 2.0 08/08/16 15:50 36.6 72 17 122/71 100 2.0 08/08/16 15:17 36.6 67 17 114/68 100 2.0 Physical Exam: General Appearance: WD/WN, no apparent distress Eyes: bilateral eyes normal inspection ENT: hearing grossly normal, pharynx normal Neck: supple, no JVD Respiratory/Chest: chest non-tender, normal breath sounds Cardiovascular: no edema, no JVD Abdomen: non tender, soft Extremities: normal inspection, no pedal edema Neurologic/Psychiatric: alert, normal mood/affect Skin: normal color Medications Medications: Current Inpatient Medications Medications (Trade) Dose Ordered Sig/Helder Route Start Time Stop Time Status Last Admin Dose Admin Heparin Sodium (Porcine) (Heparin Sq 5000 Unit/0.5ml) 5,000 unit Q12 SQ 08/06/16 09:00 09/05/16 08:59 08/09/16 08:19 5,000 UNIT Acetaminophen (Tylenol Tab) 650 mg Q4H PRN PO 08/05/16 21:00 09/04/16 20:59 08/06/16 16:11 650 MG Al Hydrox/Mg Hydrox/Simethicone (Maalox Max Susp) 15 ml Q4H PRN PO 08/05/16 21:00 09/04/16 20:59 Magnesium Hydroxide (Milk Of Magnesia Susp) 30 ml Q12H PRN PO 08/05/16 21:00 09/04/16 20:59 Ondansetron HCl (Zofran Inj) 4 mg Q6H PRN IV 08/05/16 21:00 09/04/16 20:59 08/07/16 04:12 4 MG Nitroglycerin (Nitrostat Tab) 0.4 mg UD PRN SL 08/05/16 21:00 09/04/16 20:59 Polyethylene (Miralax Powder Packet) 17 gm DAILY PRN PO 08/05/16 21:00 09/04/16 20:59 Aspirin (Ecotrin Tab) 81 mg QPM PO 08/06/16 21:00 09/05/16 20:59 08/08/16 20:48 81 MG Atorvastatin Calcium (Lipitor Tab) 80 mg QPM PO 08/06/16 21:00 09/05/16 20:59 08/08/16 20:48 80 MG Carvedilol (Coreg Tab) 25 mg BID PO 08/06/16 09:00 09/05/16 08:59 08/09/16 08:09 25 MG Clopidogrel Bisulfate (plAVix TAB) 75 mg QPM PO 08/06/16 21:00 09/05/16 20:59 08/08/16 20:48 75 MG Lorazepam (Ativan Tab) 0.5 mg Q6H PRN PO 08/05/16 21:15 09/04/16 21:14 Multivitamins/ Minerals (Multivitamin W/ Minerals Tab) 1 tab QAM PO 08/06/16 09:00 09/05/16 08:59 08/09/16 08:11 1 TAB Nystatin (Mycostatin Powder) 1 appln BID EXT 08/06/16 09:00 09/05/16 08:59 08/09/16 08:14 1 APPLN Pantoprazole Sodium (Protonix Tab) 40 mg QAM PO 08/06/16 09:00 09/05/16 08:59 08/09/16 08:10 40 MG Febuxostat (Uloric) 40 mg 1200 PO 08/06/16 12:00 09/05/16 11:59 08/09/16 11:52 40 MG Miscellaneous Information (Order Awaiting Action) 1 ea QS N/A 08/06/16 08:00 09/05/16 07:59 08/09/16 08:14 1 EA Vancomycin HCl (Vancomycin Oral Soln) 125 mg QAM PO 08/06/16 09:00 08/16/16 08:59 08/09/16 08:09 125 MG Miscellaneous Information 1 ea UD PRN N/A 08/06/16 06:45 09/05/16 06:44 Raspberry 5 ml 5 ml QAM PO 08/06/16 09:00 08/20/16 08:59 08/09/16 08:09 5 ML Ertapenem/Sodium Chloride (Invanz Iv/Nss 50ml) 55 ml @ 120 mls/hr Q24H IV 08/09/16 14:00 2/28/17 21:00 08/09/16 14:43 120 MLS/HR Heparin Sodium (Porcine) (Heparin 10 Unit/ ml 5 ml Flush) 5 ml PRN PRN FLUSH 08/08/16 18:00 09/07/16 17:59 Laboratory Data Labs: Last 24 Hours Test 08/09/16 05:15 White Blood Count 7.55 K/uL Red Blood Count 2.75 M/uL Hemoglobin 8.5 g/dL Hematocrit 25.8 % Mean Corpuscular Volume 93.8 fL Mean Corpuscular Hemoglobin 30.9 pg Mean Corpuscular Hemoglobin Concent 32.9 g/dl Platelet Count 157 K/uL Mean Platelet Volume 8.9 fL Neutrophils (%) (Auto) 62.1 % Lymphocytes (%) (Auto) 20.7 % Monocytes (%) (Auto) 7.5 % Eosinophils (%) (Auto) 3.0 % Basophils (%) (Auto) 0.3 % Neutrophils # (Auto) 4.69 K/uL Lymphocytes # (Auto) 1.56 K/uL Monocytes # (Auto) 0.57 K/uL Eosinophils # (Auto) 0.23 K/uL Basophils # (Auto) 0.02 K/uL RDW Standard Deviation 57.7 fL RDW Coefficient of Variation 16.8 % Immature Granulocyte % (Auto) 6.4 % Immature Granulocyte # (Auto) 0.48 K/uL Echinocytes 1+ Sodium Level 144 mmol/L Potassium Level 5.2 mmol/L Chloride Level 118 mmol/L Carbon Dioxide Level 15 mmol/L Anion Gap 11.0 mmol/L Blood Urea Nitrogen 52 mg/dl Creatinine 3.50 mg/dl Est Creatinine Clear Calc Drug Dose 11.7 ml/min Estimated GFR () 13.3 Estimated GFR (Non- 11.4 BUN/Creatinine Ratio 14.8 Random Glucose 83 mg/dl Calcium Level 8.0 mg/dl Assessment and Plan 81-year-old female, presenting with acute weakness, reminiscent of previous urinary tract infections. She has had a complicated course with multiple urinary tract infections in the recent past. She was most recently discharged on 07/21/2016, after a Klebsiella UTI, treated with IV ertapenem. Bacterial recurrent urinary tract infection, hx of klebsiella, fevers blood cultures neg urine culture - klebsiella, sensitive to envanz She has not been on any UTI suppressive therapy as an outpatient, and her last Ertapenem given in the emergency department; most recent UTI in early July was also treated as such with repeat UA negative (see cultures from 07/19/2016) cont IV ertapenem vis picc line at least 2 weeks appreciated ID recs Acute kidney injury on CKD Stage IV Multifactorial: Combination of repeated urinary tract infections, and interstitial cystitis Creatinine 3.6 Review of creatinines for the past several months reveal new baseline approximately 3.1-3.2 Avoid nephrotoxic medication; renally dose all necessary nephrotoxic agents continue IVF Anemia of chronic kidney dz, give 1 units PRBCs, check CBC in am Hyperkalemia Potassium on arrival 6.0 improved to 4.9 Hypomagnesemia Replaced 2 g of MgSulfate; and recheck Mg level 1 hour after repletion History of C. difficile infection Patient is on by mouth vancomycin prior to arrival Reviewed most recent note by Dr. Griffin on 08/01/2016: Recommended continuing on with by mouth vancomycin Hypernatremia Na with repeat BMP, came back at 146 Patient is noted to have periodic chronic hypernatremia IV fluids 1/2 NSS Chronic systolic congestive heart failure EF 35-40%, dated May 2016 Daily weights with ins and outs Clinically no evidence of overt failure at this time Continue carvedilol; ACEis contraindicated in light of chronic kidney dysfunction Patient is currently not on the loop diuretic at home, and per has been stable in this regard Will monitor fluid status daily and administer Lasix on an as-needed basis DVT prophylaxis Heparin 5000 units subcutaneous twice a day CODI stockings SCD to the knees CODE STATUS Level I full code PT/OT eval Patient notes that she does get [facility], Saturday to Saturday, possible d/ c home tomorrow, wants to take her home despite PT eval recommending SNF
[2016-08-09 15:48] VITALS: BP 132/73; PULSE 80; TEMP 36.7; O2SAT 98
[2016-08-09 16:00] VITALS: O2SAT 98
[2016-08-09] MEDS: ASPIRIN 81 MG ECTAB PO SCH (20:50)
[2016-08-09] MEDS: ATORVASTATIN 40 MG TAB PO SCH (20:51)
[2016-08-09] MEDS: CLOPIDOGREL BISULFATE 75 MG TAB PO SCH (20:52)
[2016-08-09 23:37] VITALS: BP 131/71; PULSE 78; TEMP 37; O2SAT 99
[2016-08-10 07:01] LABS: CREATININE 3.3 mg/dl (0.60-1.20)
[2016-08-10 07:42] VITALS: BP 145/75; PULSE 73; TEMP 37; O2SAT 100
[2016-08-10] MEDS: PANTOprazole SOD 40 MG TAB PO SCH (08:29)
[2016-08-10] MEDS: CEROVITE ADV FORMULA TAB PO SCH (08:29)
[2016-08-10 08:30] VITALS: O2SAT 100
[2016-08-10] MEDS: LOTEMAX~ORDER AWAITING ACTION SCH ×2 (08:30)
[2016-08-10] MEDS: HEPARIN SOD 5000 UNIT/0.5 ML CARP SQ SCH (08:30)
[2016-08-10] MEDS: CARVEDILOL 25 MG TAB PO SCH (08:30)
[2016-08-10] MEDS: NYSTATIN POWDER 15GM BTL EXT SCH (08:30)
[2016-08-10] MEDS: RASPBERRY SYRUP 5 ML UDP PO SCH (08:31)
[2016-08-10] MEDS: VANCOMYCIN HCL 125 MG/2.5ML SOLN PO SCH (08:37)
[2016-08-10 08:55] LABS: HEMATOCRIT 29.1 % (37-47); MEAN CELL VOLUME 95.1 fL (80-100); MEAN CORPUSCULAR HEMOGLOBIN 30.4 pg (25-34); MEAN PLATELET VOLUME 8.5 fL (7.4-10.4); PLATELET COUNT 146 K/uL (130-400); RED BLOOD COUNT 3.06 M/uL (4.2-5.4); WHITE BLOOD COUNT 7.77 K/uL (4.8-10.8)
[2016-08-10] MEDS ORDERED: ERTA1INJ IV (09:00)
--- NOTE | 2016-08-10 09:16 | Discharge Instructions ---
Discharge Instructions Admission Reason for Admission: UTI Discharge Discharge Diagnosis / Problem: Klebsiella Urinary Tract Infection Discharge Goals Goal(s): Decrease discomfort, Improve function, Increase independence Activity Recommendations Activity Limitations: resume your previous activity . Instructions / Follow-Up Instructions / Follow-Up Recurrent Urinary Tract Infection: Klebsiella - A PICC line was placed to give antibiotics at home. Please monitor this sight for any redness, swelling, drainage, or pain. - You are established with [facility] and a prescription has been sent to continue home Ertapenem for at least 2 weeks and may need longer duration given recurrence. - Please keep your appointment with Urology in regards to the stents that are placed Elevated Creatinine with Chronic Kidney Disease: - Creatinine is improving to baseline range but should be monitored as it normally is as an outpatient. Anemia: - You received one unit of blood while admitted and you blood counts have improved. Continue to monitor this as any outpatient per your family doctor Electrolytes: - Your electrolytes are improving and these can be monitored as well as an outpatient with your family doctor C. Diff Infection: - Continue your Vancomycin per Infectious Disease and follow-up with them as previously established Home Medications: - Please continue your home medications as prescribed. If you have any questions please discuss with your family doctor. Follow-Up: - Follow-up with infectious disease in 7 days. - Follow-up with Urology per your previously established appointment - Please see your family doctor in 7-10 days Current Hospital Diet Patient's current hospital diet: Low Sodium Diet (2gm Na) Discharge Diet Recommended Diet: Low Sodium Diet (2gm Na) Pending Studies Studies pending at discharge: no Medical Emergencies . Who to Call and When: Medical Emergencies: If at any time you feel your situation is an emergency, please call 911 immediately. . Non-Emergent Contact Non-Emergency issues call your: Primary Care Provider Call Non-Emergent contact if: you have a fever, your pain is concerning you, you have any medication questions . . "Provider Documentation" section prepared by Gabriela Minor. VTE Core Measure Inpt VTE Proph given/why not?: Unfractionated heparin SQ
[2016-08-10 09:23] LABS: BUN/CREATININE RATIO 15.1 (10-20); CALCIUM 8.6 mg/dl (8.5-10.1); CREATININE 3.3 mg/dl (0.60-1.20); MAGNESIUM 1.8 mg/dl (1.8-2.4)
[2016-08-10] MEDS: ERTAPENEM IV 500 MG in SODIUM CHLORIDE 0.9% 50ML 50 ML IV SCH (10:22)
[2016-08-10 11:51] VITALS: BP 145/75; PULSE 73; TEMP 37; O2SAT 100
--- NOTE | 2016-08-10 15:06 | Discharge Summary ---
Discharge Summary Date of Service Aug 10, 2016. Discharge Summary Admission Date: Aug 05, 2016 at 21:02 Discharge Date: Aug 10, 2016 Discharge Disposition: Home with services Principal Diagnosis: Klebsiella Urinary Tract Infection Immunizations: Have You Had Influenza Vaccine: Yes Influenza Vaccine Date: Mar 17, 2010 History of Tetanus Vaccine?: No History of Pneumococcal: No Pneumococcal Date: Jun 06, 2011 History of Hepatitis B Vaccine: No Procedures: CHEST ONE VIEW PORTABLE CLINICAL HISTORY: CHECK PICC PLACEMENT COMPARISON STUDY: 08/05/2016 FINDINGS: The cardiac and mediastinal contours remain stable. There is a left subclavian pacer/defibrillator present. There is stable blunting of the left lateral costophrenic angle. There are minor left basilar atelectatic changes. There is no lobar consolidation. There is been interval insertion of a right-sided PICC catheter. The tip projects over the right atrium. 4 superior vena caval placement, the catheter should be pulled back proximally 5 cm.[ IMPRESSION: Interval insertion of a right-sided PICC catheter the tip of which projects over the right atrium. Consultations: 1. Urology Medication Reconciliation Continued Medications: Aspirin (Aspirin) 81 Mg Tab 81 MG PO QPM Atorvastatin (Lipitor) 80 Mg Tab 80 MG PO QPM Carvedilol (Carvedilol) 25 Mg Tab 25 MG PO BID Cholecalciferol (Vitamin D3) 1,000 Unit Tab 1 TAB PO DAILY for 90 Days, #90 TAB 3 Refills Clopidogrel Bisulfate (Clopidogrel) 75 Mg Tab 75 MG PO QPM Ertapenem Sodium (Invanz) 1 Gm Inj 500 MG IV Q24H for 10 Days, VIAL Febuxostat (Uloric) 40 Mg Tab 40 MG PO NOON TAKE THIS MEDICATION DAILY WITH LUNCH Lorazepam (Ativan) 0.5 Mg Tab 0.5 MG PO Q6H PRN for Anxiety, TAB Loteprednol Etabonate (Lotemax) 0.5 % Gel 1 DROP OPB QAM Multiple Vitamins W/ Minerals (Centrum Silver Ultra Wome) 1 Tab Tab 1 TAB PO QAM Nystatin (Nystop) 45 Appln/15 Gm Powd 1 DOSE TOP BID Ondasetron Odt (Zofran Odt) 4 Mg Tab 4 MG PO Q6H PRN for Nausea Pantoprazole (Pantoprazole Sodium) 40 Mg Tab 40 MG PO QAM Probiotic Product (Probiotic) 1 Cap Cap 1 TAB PO NOON Vancomycin Hcl (Vancomycin) 125 Mg Cap 125 MG PO QAM Discharge Exam Review of Systems: Constitutional: No chills, No fever ENT: No nasal symptoms, No sore throat, No trouble swallowing Respiratory: No cough, No shortness of breath Abdomen: No nausea, No pain, No vomiting Musculoskeletal: No calf pain Genitourinary - Female: No dysuria Integumentary: No rash Physical Exam: General Appearance: WD/WN, no apparent distress Eyes: sclerae normal ENT: hearing grossly normal Neck: supple, no JVD, trachea midline Respiratory/Chest: lungs clear, normal breath sounds, no respiratory distress, no accessory muscle use Cardiovascular: regular rate, rhythm, no gallop, no murmur Abdomen / GI: normal bowel sounds, non tender, soft Extremities: no pedal edema Neurologic/Psychiatric: alert Skin: normal color, warm/dry Hospital Course ADMISSION: This is a pleasant 81-year-old female, with a history of repeated urinary tract infections, chronic kidney disease stage IV, hypernatremia, C. difficile, who presents with sudden onset weakness. She is accompanied by her today in the emergency department. notes that she has been doing quite well until 4 PM this afternoon. She awoke from a nap and he was cleaning her as she has chronic urinary incontinence. As he was pulling up her diaper, her legs buckled and she dropped to the floor. She did not hit her head , or lose consciousness. notes that he was unable to lift her back up into bed, and called EMS services to bring her into the hospital for further evaluation. He notes that this is classic for her having a urinary tract infection. He is quite diligent about checking routine daily vital signs. He says that they have overall been WNL. He did check her temperature on her this afternoon, and it was 98.4. She herself denies fevers chills or night sweats. denies any acute confusional state, though this has happened to her previously when she has had a urinary tract infection Her appetite and intake have been good. She has chronic urinary incontinence, but denies dysuria or frequency. She has not had any issues with diarrhea or constipation. She denies chest pain, shortness of breath, palpitations, lightheadedness/dizziness , or lower extremity edema. She was recently admitted in late June 2016 for UTI that was found to be Klebsiella. She was treated with IV ertapenem, and a repeat urine culture on demonstrated that the urinary tract infection had cleared and she was discharged home. She did see Dr. Griffin in the outpatient. She did also develop C. difficile, and was on suppressive oral vancomycin therapy up until now. 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 - A PICC line was placed on 08/07/16 and Ertapenem was initiated. She has received 5 days total antibiotics in the hospital -- [facility] established to continue home Abx therapy for at least 2 weeks but given same organism this may need extended for 3-4 weeks. -- She was followed with Infectious Disease and instructed to follow-up as an outpatient in approx. 7 days for evaluation for further Abx coverage needs - BCx obtained which were NGTD on final reading - She had a previously scheduled appointment with Urology for stent replacement as this will be necessary given the risk for stent contamination as sent Acute Kidney Injury Superimposed on CKD Stage IV: - Cr was 3.6 on admission and improved to 3.3 upon discharge with hydration. Per records baseline approx. 3.1-3.2 - Nephrotoxic medications avoided and renally dosed medications administered Anemia of Chronic Disease: - Received 1 unit PRBC on 08/08 for Hgb of 7.4 and Hgb monitored with current at 9.3 upon discharge Fluid and Electrolytes: - Initial BMP with hyperkalemia, hypomagnesemia, and hypernatremia. Labs were monitored and addressed as necessary. - Upon discharge electrolytes are WNL History of C. Difficile Infection: - Vancomycin 125 mg daily was continued for coverage Chronic Systolic Congestive Heart Failure without Exacerbation: - Echo (2016) - EF 35-40% - Daily weights and I&Os monitored without evidence of failure during admission - Patient maintained on Carvedilol 25 mg BID - as ACEI contraindicated due to renal function DVT Prophylaxis: - Utilized Heparin 5000 units SC BID and CODI/SCDs Code Status: FULL RESUSCITATION Disposition: PT/OT evaluations given however majority of visits were declined by . OT did recommend SNF as this has been offered on previous admissions as well which have been refused. Patient does have caregivers at home and would like her to return home at this time. She is a 30 day readmission and has bilateral stents placed which may be harboring this infection. Given recurrent UTIs and dependence of others she is at risk for readmission. PT/OT eval Patient notes that she does get [facility], Saturday to Saturday, possible d/ c home tomorrow, wants to take her home despite PT eval recommending Total Time Spent: Greater than 30 minutes This includes examination of the patient, discharge planning, medication reconciliation, and communication with other providers. Discharge Instructions Please refer to the electronic Patient Visit Report (Discharge Instructions) for additional information. Additional Copies To Jan Cervantes M.D.
[2016-08-13] MEDS ORDERED: ERTA1INJ IV (10:46)
[2016-10-16] MEDS ORDERED: CRANBERRY PO (12:34)
[2016-11-05] MEDS ORDERED: CARV12.52 PO (08:41)
[2016-12-04] MEDS ORDERED: CPR500 PO (09:01)
[2016-12-04] MEDS ORDERED: METR-162 PO (09:01)
== END 2016-08-10 13:30 | disposition home health service (06) | DRG 683 ==
LOC: ENRESERVTM → ENRESERVDT → EDBD 16:49 → C.EDB 16:50 → UNDOADMIN 21:02 → C.2E 21:02 → C.4E 08-08 11:59
PROVIDERS: ADMIT Student in an Organized Health Care Education/Training Program; ATTEND Hospitalist
DX: N17.9 Acute kidney failure, unspecified (principal); N39.0 Urinary tract infection, site not specified; I13.0 Hypertensive heart and chronic kidney disease with heart failure and stage 1 through stage 4 chronic kidney disease, or unspecified chronic kidney disease; E87.0 Hyperosmolality and hypernatremia; I50.22 Chronic systolic (congestive) heart failure; N18.4 Chronic kidney disease, stage 4 (severe); Z90.49 Acquired absence of other specified parts of digestive tract; E11.22 Type 2 diabetes mellitus with diabetic chronic kidney disease; I25.5 Ischemic cardiomyopathy; I25.2 Old myocardial infarction; I25.10 Atherosclerotic heart disease of native coronary artery without angina pectoris; Z87.01 Personal history of pneumonia (recurrent); E78.00 Pure hypercholesterolemia, unspecified; Z88.8 Allergy status to other drugs, medicaments and biological substances; Z88.0 Allergy status to penicillin; Z88.2 Allergy status to sulfonamides; Z79.82 Long term (current) use of aspirin; Z79.899 Other long term (current) drug therapy; E87.5 Hyperkalemia; E83.42 Hypomagnesemia; D63.1 Anemia in chronic kidney disease; B96.1 Klebsiella pneumoniae [K. pneumoniae] as the cause of diseases classified elsewhere; R32 Unspecified urinary incontinence

== ENCOUNTER → 2016-08-17 | Outpatient (CLI) | payer MEDICARE ==
[~2016-08-17] MED LIST changes: -ACET325T96 PO; +CARV12.52 PO; +CEFD1CAP14 PO; +COCO1OIL2 PO; +CPR500 PO; +CRAN1TAB PO; +CRANBERRY PO; +ERTA1INJ IV; +FURO-85 PO; +METR-162 PO; +PANT40TA2 PO; -PRT/40 PO; +SODI650T8 PO; +VANC5CAP PO; -[UNRECOGNIZED DRUG - CODE] TOP
[2016-08-17 07:02] LABS: BASO % 0.5 %; BASO ABS # 0.04 K/uL (0-0.2); COMPLETE YES; EOS % 3.3 %; HEMATOCRIT 29.5 % (37-47); IG% 4.7 %; LYMPH % 21.6 %; LYMPH ABS # 1.84 K/uL (1.2-3.4); MEAN CORPUSCULAR HEMOGLOBIN 30.9 pg (25-34); MEAN CORPUSCULAR HGB CONC 31.9 g/dl (32-36); MEAN PLATELET VOLUME 9.2 fL (7.4-10.4); MONO % 6.7 %; NEUT % 63.2 %; PLATELET COUNT 136 K/uL (130-400); RED BLOOD COUNT 3.04 M/uL (4.2-5.4); WHITE BLOOD COUNT 8.52 K/uL (4.8-10.8)
[2016-08-17 07:28] LABS: ALT/SGPT 15 U/L (12-78); BLOOD UREA NITROGEN 41 mg/dl (7-18); BUN/CREATININE RATIO 15.7 (10-20); C-REACTIVE PROTEIN 1.06 mg/dl (0-0.29); CALCIUM 8.6 mg/dl (8.5-10.1); CARBON DIOXIDE 18 mmol/L (21-32); CHLORIDE 123 mmol/L (98-107); GLUCOSE 93 mg/dl (70-99); SODIUM 149 mmol/L (136-145)
[2016-08-17 07:31] LABS: ALB/GLOB RATIO 0.6 (0.9-2); ALKALINE PHOSPHATASE 96 U/L (45-117); AST/SGOT 16 U/L (15-37)
--- NOTE | 2016-09-27 11:15 | CODING QUERY NO DIAGNOSIS ---
TREATMENT RENDERED WITHOUT A DIAGNOSIS To promote full compliance with coding requirements relating to patient care, physician participation is requested in all cases of braille coder uncertainty. Please assist us with providing a diagnosis/symptom for the test(s) below: A diagnosis/symptom was not documented on your Order. A valid diagnosis/symptom is required to bill all insurances. Please remember that we are unable to code a diagnosis of rule out, probable, possible, questionable, or suspected. Tests that require a diagnosis: CBC/ W AUTOMATED DIFF SED/RATE COMP METABOLIC PROFILE C-REACTIVE PROTEIN Provider Signature: Date: Thank you Elizabeth Eason [facility] Information Management Once completed, please kindly fax back to [phone] For questions please call [phone]
== END | disposition home or self-care (01) ==
LOC: C.LABSPEC 06:20
PROVIDERS: ATTEND Internal Medicine Infectious Disease
DX: N39.0 Urinary tract infection, site not specified (principal); G93.40 Encephalopathy, unspecified

== ENCOUNTER 2016-08-18 06:52 | Inpatient (IN) | payer MEDICARE, OTHER ==
[~2016-08-18] VITALS: Ht 162.6 cm; Wt 69.7 kg
[~2016-08-18 06:52] MED LIST changes: -CARV12.52 PO; -CEFD1CAP14 PO; -COCO1OIL2 PO; -CPR500 PO; -CRAN1TAB PO; -CRANBERRY PO; -FURO-85 PO; -METR-162 PO; -PANT40TA2 PO; +PRT/40 PO; -SODI650T8 PO
[2016-08-18] MEDS ORDERED: SODIUM CHLORIDE 0.9% 250ML 250 ML IV SCH (07:15)
--- NOTE | 2016-08-18 07:23 | EMERGENCY ROOM VISIT NOTE ---
ED Visit Note First contact with patient: 06:56 Resident Physician Supervision Note: I was present with Dr. Campbell during the history and exam. I discussed the case with the resident and agree with the findings and plan as documented in the note. Documented By: Mio Whitaker
--- NOTE | 2016-08-18 07:31 | EMERGENCY ROOM VISIT NOTE ---
History Chief Complaint: ILLNESS Stated Complaint: ILLNESS History of Present Illness The patient is a 81 year old female who presents to the Emergency Room with her who reports the patient has had worsening diarrhea, hallucinations, and weakness. She was recently discharged 08/10/16 and has had multiple admissions for UTI with multiple drug resistances, sensitive to Ertapenem. She has been on Ertapenem for about a week, and her is administering it via PICC line. Her baseline is very mentally sound, and she normally reads on her kyree throughout the day. Over the last 4 days, she has been having visual hallucinations and thought her blanket was her kyree. Her has good notes regarding her care and vital signs throughout the day. She has not had fevers. She also has home nursing take care of her. She has become so weak recently that she has required her to carry her around. Her weakness is mainly in both legs. She also has a history of CKD, and bilateral renal stents. Per her , she was meant to have these changed in August but was too weak for this procedure. She has a history of CHF, with her last echo in 05/2016 shows an EF of 40-50%. She also had a positive C Diff culture on 09/17/15 and has been on PO Vancomycin for a while. Initially she was on QID, though this was changed by Dr. Griffin to once a day dosing due to her kidney function. Review of Systems See HPI for pertinent positives & negatives. A total of 10 systems reviewed with the and were otherwise negative. Past Medical/Surgical History Medical Problems: (1) Acute hypernatremia (2) Acute kidney injury (3) Acute on chronic renal failure (4) Acute renal failure superimposed on stage 4 chronic kidney disease (5) Acute urinary tract infection (6) Anemia (7) Benign hypertension (8) Cardiac catheterization (9) CHF (congestive heart failure) (10) CHF (congestive heart failure) (11) Cholecystectomy (12) Chronic kidney disease (13) CKD (chronic kidney disease) stage 5, GFR less than 15 ml/min (14) Coronary artery disease (15) Dehydration (16) Diabetes (17) Ischemic cardiomyopathy (18) Metabolic acidosis (19) Metabolic acidosis with increased anion gap and reduced excretion of inorganic acids (20) Myocardial infarction (21) Pneumonia (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 (23) Recurrent UTI (24) Secondary hyperparathyroidism of renal origin (25) Sepsis (26) Sepsis due to Klebsiella (27) sepsis recurrent UTI BONNIE on ckd (28) Systolic CHF (29) UTI (urinary tract infection) (30) UTI (urinary tract infection) (31) UTI (urinary tract infection) (32) UTI, altered mental status (33) Weakness Surgical Problems: (1) History of cholecystectomy (2) History of ureter stent Family History Other cardiovascular diseases Social History Smoking Status: Never Smoker Alcohol Use: none Drug Use: none Marital Status: Housing Status: lives with significant other Occupation Status: retired Current/Historical Medications Scheduled Aspirin (Aspirin), 81 MG PO QPM Atorvastatin (Lipitor), 80 MG PO QPM Carvedilol (Carvedilol), 25 MG PO BID Cholecalciferol (Vitamin D3), 1 TAB PO DAILY Clopidogrel Bisulfate (Clopidogrel), 75 MG PO QPM Ertapenem Sodium (Invanz), 1 GM IV DAILY Febuxostat (Uloric), 40 MG PO NOON Loteprednol Etabonate (Lotemax), 1 DROP OPB QAM Multiple Vitamins W/ Minerals (Centrum Silver Ultra Wome), 1 TAB PO QAM Nystatin (Nystop), 1 DOSE TOP BID Pantoprazole (Pantoprazole Sodium), 40 MG PO QAM Probiotic Product (Probiotic), 1 TAB PO QPM Vancomycin Hcl (Vancomycin), 125 MG PO QAM Scheduled PRN Lorazepam (Ativan), 0.5 MG PO Q6H PRN for Anxiety Ondasetron Odt (Zofran Odt), 4 MG PO Q6H PRN for Nausea Allergies Coded Allergies: Penicillins (Verified Allergy, Unknown, UNKNOWN REACTION, 08/18/16) PER PCP RECORDS Sulfa Antibiotics (Verified Allergy, Unknown, BODY SWELLING,NAUSEA AND VOMITNG, 08/18/16) Physical Exam Vital Signs Date Time Temp Pulse Resp B/P Pulse Ox O2 Delivery O2 Flow Rate FiO2 08/18/16 08:29 76 18 124/63 100 Room Air 08/18/16 07:37 100 Nasal Cannula 2.0 08/18/16 07:00 78 18 150/70 100 Room Air Physical Exam GENERAL: Awake, alert, well appearing, no distress. Confused initially. HENT: Normocephalic, atraumatic. TM's normal. Oropharynx unremarkable. EYES: PERRL. Normal conjunctiva. Sclera non-icteric. Fundi normal. EOMI NECK: Supple. No nuchal rigidity. FROM. RESPIRATORY: CTA CARDIAC: RRR. Extremities warm and well perfused. ABDOMEN: Soft, non distended. Suprapubic tenderness to palpation. No rebound or guarding. No masses. MUSCULOSKELETAL: Unremarkable. EXTREMITIES: No edema. No discoloration. Gross motor strength 5/5 bilaterally. NEURO: . No sensory or motor deficits noted. Gait normal. Speech normal. Cranial nerves two through 12 intact. No pronator drift. Negative Romberg. Normal rapid alternating movements. SKIN: No rash or jaundice noted. LYMPH: No adenopathy. Medical Decision & Procedures ER Provider Diagnostic Interpretation: CT HEAD: IMPRESSION: Senescent changes as above with no hemorrhage, mass effect, or evidence of acute territorial ischemia by CT criteria. CXR: Completed, no acute abnormalities but currently machine has been unable to upload to PACS. Radiology says this will be uploaded soon. Laboratory Results 08/18/16 07:25 Red Blood Count 3.36, Mean Corpuscular Volume 96.7, Mean Corpuscular Hemoglobin 30.4, Mean Corpuscular Hemoglobin Concent 31.4, Mean Platelet Volume 9.6, Neutrophils (%) (Auto) 69.1, Lymphocytes (%) (Auto) 17.9, Monocytes (%) (Auto) 5.9, Eosinophils (%) (Auto) 3.0, Basophils (%) (Auto) 0.4, Neutrophils # (Auto) 6.78, Lymphocytes # (Auto) 1.75, Monocytes # (Auto) 0.58, Eosinophils # (Auto) 0.29, Basophils # (Auto) 0.04 08/18/16 07:25 Test 08/18/16 07:20 08/18/16 07:25 08/18/16 07:45 08/18/16 07:57 Urine Color YELLOW Urine Appearance TURBID (CLEAR) Urine pH 5.5 (4.5-7.5) Urine Specific Dowell 1.010 (1.000-1.030) Urine Protein 1+ (NEG) Urine Glucose (UA) NEG (NEG) Urine Ketones NEG (NEG) Urine Occult Blood 3+ (NEG) Urine Nitrite NEG (NEG) Urine Bilirubin NEG (NEG) Urine Urobilinogen NEG (NEG) Urine Leukocyte Esterase LARGE (NEG) Urine WBC (Auto) /hpf (0-5) Urine RBC (Auto) /hpf (0-4) Urine Hyaline Casts (Auto) /lpf (0-5) Urine Epithelial Cells (Auto) /lpf (0-5) Urine Bacteria (Auto) (NEG) Urine RBC >30 /hpf (0-4) Urine WBC >30 /hpf (0-5) Urine Epithelial Cells 20-30 /lpf (0-5) Urine Bacteria 2+ (NEG) Urine Yeast (Auto) (NONE PRSENT) White Blood Count 9.80 K/uL (4.8-10.8) Red Blood Count 3.36 M/uL (4.2-5.4) Hemoglobin 10.2 g/dL (12.0-16.0) Hematocrit 32.5 % (37-47) Mean Corpuscular Volume 96.7 fL (80-100) Mean Corpuscular Hemoglobin 30.4 pg (25-34) Mean Corpuscular Hemoglobin Concent 31.4 g/dl (32-36) Platelet Count 140 K/uL (130-400) Mean Platelet Volume 9.6 fL (7.4-10.4) Neutrophils (%) (Auto) 69.1 % Lymphocytes (%) (Auto) 17.9 % Monocytes (%) (Auto) 5.9 % Eosinophils (%) (Auto) 3.0 % Basophils (%) (Auto) 0.4 % Neutrophils # (Auto) 6.78 K/uL (1.4-6.5) Lymphocytes # (Auto) 1.75 K/uL (1.2-3.4) Monocytes # (Auto) 0.58 K/uL (0.11-0.59) Eosinophils # (Auto) 0.29 K/uL (0-0.5) Basophils # (Auto) 0.04 K/uL (0-0.2) RDW Standard Deviation 56.1 fL (36.4-46.3) RDW Coefficient of Variation 16.2 % (11.5-14.5) Immature Granulocyte % (Auto) 3.7 % Immature Granulocyte # (Auto) 0.36 K/uL (0.00-0.02) Anion Gap 9.0 mmol/L (3-11) Est Creatinine Clear Calc Drug Dose 15.7 ml/min Estimated GFR () 19.0 Estimated GFR (Non- 16.4 BUN/Creatinine Ratio 15.1 (10-20) Calcium Level 8.7 mg/dl (8.5-10.1) Total Bilirubin 0.3 mg/dl (0.2-1) Aspartate Amino Transf (AST/SGOT) 18 U/L (15-37) Alanine Aminotransferase (ALT/SGPT) 17 U/L (12-78) Alkaline Phosphatase 112 U/L (45-117) Total Creatine Kinase 13 U/L (26-192) Creatine Kinase MB 1.0 ng/ml (0.5-3.6) Creatine Kinase MB Ratio 7.7 (0-3.0) Troponin I < 0.015 ng/ml (0-0.045) Total Protein 6.7 gm/dl (6.4-8.2) Albumin 2.6 gm/dl (3.4-5.0) Globulin 4.1 gm/dl (2.5-4.0) Albumin/Globulin Ratio 0.6 (0.9-2) Bedside Troponin I 0.000 ng/ml (0-0.045) ECG Indication: altered mental status Rhythm: normal sinus Findings: T-wave inversion (Inferior), no acute ischemic change Change: no significant change ED Course 7:17 AM: I evaluated the patient in room A10. A complete history and physical exam were performed. I then discussed the case with Dr. Whitaker, and ordered a CBC, CMP, blood cultures, urinalysis from catheter, urine culture, cardiac enzymes , EKG, CXR, and CT head. I ordered a 250mL bolus of IV fluids to be given over 30 minutes. 8:00AM: I reviewed the patient's past admissions. She had a positive C. difficile culture in September 2015 and was on 4 times a day vancomycin by mouth for a while, which was then decreased to once daily due to her kidney function. she was also a full code during her past admission. 8:20 AM: The patient's lab results were reviewed. She is hypernatremic, hyperkalemic, and her creatinine is 2.6, which is an improvement from her baseline of 3.0. Her CT head was normal. Her urinalysis was positive for leukocytes, RBCs. 8:29AM: I discussed the case with case management, and then with Dr. Alamo of the [facility]. The patient will be evaluated for admission. I explained this to the patient and her and they both agreed with this plan. Medical Decision This is an 81-year-old female recently discharged on 08/10/2016 for chronic UTI on fci Ertapenem via PICC line who presents with altered mental status, diarrhea, weakness and found to have multiple lab abnormalities. Differential includes worsening UTI, C. Difficile, pyelonephritis, PICC line infection, stroke, DE, dehydration. She had repeat labs drawn which were compared to labs drawn yesterday. Her potassium is increased from yesterday. She has been hyperkalemic and hypernatremic in the past. Her changed mental status is new for her, which could be from stroke vs dehydration. Her CT head was normal. 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 She denied any actual pain at any point. She has pending urine and stool cultures for C Diff. She will be admitted to the hospitalist service. Departure Information Dispostion Being Evaluated By Hospitalist ([email or web address]) Condition GOOD Referrals Jan Cervantes M.D. Patient Instructions My [facility] Resident Tracking Resident Involvement: Resident Care Provided Care Provided: Adult ED
[2016-08-18 07:51] LABS: BASO % 0.4 %; BASO ABS # 0.04 K/uL (0-0.2); COMPLETE YES; HEMATOCRIT 32.5 % (37-47); IG% 3.7 %; LYMPH % 17.9 %; LYMPH ABS # 1.75 K/uL (1.2-3.4); MEAN CELL VOLUME 96.7 fL (80-100); MEAN CORPUSCULAR HEMOGLOBIN 30.4 pg (25-34); MEAN CORPUSCULAR HGB CONC 31.4 g/dl (32-36); MEAN PLATELET VOLUME 9.6 fL (7.4-10.4); MONO % 5.9 %; NEUT % 69.1 %; PLATELET COUNT 140 K/uL (130-400); RED BLOOD COUNT 3.36 M/uL (4.2-5.4)
[2016-08-18 07:57] LABS: URINE APPEARANCE TURBID (CLEAR); URINE BILIRUBIN NEG (NEG); URINE COLOR YELLOW; URINE NITRITE NEG (NEG); URINE PH 5.5 (4.5-7.5); UROBILINOGEN NEG (NEG); ZZURINE CULT IF INDIC CATH YES
[2016-08-18 07:59] LABS: ALT/SGPT 17 U/L (12-78); BLOOD UREA NITROGEN 39 mg/dl (7-18); BUN/CREATININE RATIO 15.1 (10-20); CALCIUM 8.7 mg/dl (8.5-10.1); CARBON DIOXIDE 16 mmol/L (21-32); CHLORIDE 121 mmol/L (98-107); GLUCOSE 105 mg/dl (70-99); POTASSIUM 5.4 mmol/L (3.5-5.1); SODIUM 146 mmol/L (136-145)
--- NOTE | 2016-08-18 08:03 | DIAGNOSTIC IMAGING REPORT ---
CT SCAN OF THE BRAIN WITHOUT IV CONTRAST CLINICAL HISTORY: Change in mental status. COMPARISON STUDY: CT of the brain dated 07/21/16. TECHNIQUE: Unenhanced axial CT scan of the brain is performed from the vertex to the skull base. CT DOSE: 614.27 mGy.cm FINDINGS: Brain parenchyma: There are age-related involutional changes noting moderate patchy subcortical and periventricular microangiopathic change. Small chronic lacunar infarcts are seen in the right cerebellar hemisphere, both caudate heads, the left basal ganglia, and the left thalamus. There is no hemorrhage, mass effect, or evidence of acute territorial ischemia by CT criteria. Bartlett-white matter is preserved. No extra-axial fluid collection is seen. Ventricles, sulci, cisterns: Prominent secondary to involutional change. Intracranial vasculature: There is atherosclerotic calcification of the cavernous carotid and vertebral arteries. Calvarium: Unremarkable. Sinuses and mastoids: The visualized paranasal sinuses are clear. The mastoid air cells are well pneumatized. Orbits: The bony orbits are grossly intact. There are bilateral ocular lens implants. IMPRESSION: Senescent changes as above with no hemorrhage, mass effect, or evidence of acute territorial ischemia by CT criteria. Electronically signed by: Hitesh Macdonald M.D. 08/18/2016 8:01 AM Dictated Date/Time: 08/18/2016 7:58 AM
[2016-08-18 08:04] LABS: ALB/GLOB RATIO 0.6 (0.9-2); ALKALINE PHOSPHATASE 112 U/L (45-117); AST/SGOT 18 U/L (15-37); CKMB/CK RATIO 7.7 (0-3.0)
[2016-08-18 08:10] LABS: MANUAL MICROSCOPIC REQUIRED? YES; REVIEW REQ? NO
[2016-08-18 08:18] LABS: URINE BACTERIA 2+ (NEG); URINE RBC >30 /hpf (0-4); URINE WBC >30 /hpf (0-5)
[2016-08-18] MEDS ORDERED: SODIUM CHLORIDE 0.9% 1000ML 1,000 ML IV SCH (08:36)
--- NOTE | 2016-08-18 08:38 | DIAGNOSTIC IMAGING REPORT ---
SINGLE VIEW CHEST CLINICAL HISTORY: Expiratory rhonchi. FINDINGS: An AP, portable, upright chest radiograph is compared to study dated 08/08/2016. The examination is degraded by portable technique and patient rotation. A right PICC line is unchanged in position. A cardiac AICD device is unchanged and partially obscures the left lateral chest. The heart is enlarged and there is atherosclerotic calcification of the thoracic aorta. The pulmonary vasculature is noncongested. There are low lung volumes and bibasilar atelectasis. Chronic interstitial thickening is unchanged. No airspace consolidation, large pleural effusion, or pneumothorax is seen. The skeletal structures are osteopenic. The bony thorax is grossly intact. Cholecystectomy clips are identified in the right upper quadrant. IMPRESSION: 1. Cardiomegaly and AICD. There is no radiographic evidence of congestive failure. 2. No airspace consolidation or large pleural effusion is seen. Electronically signed by: Hitesh Macdonald M.D. 08/18/2016 8:37 AM Dictated Date/Time: 08/18/2016 8:36 AM
[2016-08-18] MEDS ORDERED: ACETAMINOPHEN 325 MG TAB PO PRN (08:45)
[2016-08-18] MEDS ORDERED: LORAZEPAM 0.5 MG TAB PO PRN (08:45)
[2016-08-18] MEDS ORDERED: ERTAPENEM 1 GM ADDVIAL IV SCH (09:00)
[2016-08-18 09:16] LABS: INFLUENZA A PCR Neg for Influ A (NEG); INFLUENZA B PCR Neg for Influ B (NEG)
--- NOTE | 2016-08-18 10:10 | History and Physical ---
History & Physical Date & Time of Service: Aug 18, 2016 at 09:49 Chief Complaint: Illness Primary Care Physician: Jan Cervantes M.D. History of Present Illness Source: patient, family This is an 81 yo F with PMHx CKD stage III, multiple occurrences of BONNIE, CHF, HTN, s/p AZ, DM II, UTI with MDRO including Klebsiella. PT presents with worsening weakness, confusion and diarrhea over the past 2 days in the setting of klebsiella UTI currently being treated with ertapenem 1g daily x 12 days, scheduled for at least 2 weeks. The patient is accompanied by her who supplies the majority of the history. Pt was recently admitted for similar complaints where she was seen by infectious disease and started on ertapenem. He is her primary caregiver and reports having administered the ertapenem as directed. He reports that weakness has worsened to the point where she required being carried by him, and she normally ambulates with rolling walker and uses a wheelchair. Pt has had ~4 bouts of diarrhea x past 2 days, large brown and loose per . Pt is recieving PO vanc 125 mg once in the morning for c. diff prophylaxis, her last positive c. diff was in September 2015. The patient was also supposed to have ureteral stents changed by urology a few days ago and due to worsening mental status, weakness he didn't take her to the appointment as she "wouldn't be able to undergo that". The patient is alert and oriented, she is agreeable to the history her provides. VSS, EKG was completed and showing some ST depressions which appear to be new in V4-6 since 08/05. Bicarb=16, K+ 5.4, Cl= 121, Cr= 2.6 and appears much better than it has been previously. Troponin is negative x 1 Past Medical/Surgical History Past Medical/Surgical History Medical: # CKD stage IV (advanced impairment). 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 difficile colitis # Chronic respiratory failure requiring ATC 02 # Obesity # General debilitated condition Surgical: # Bilateral corneal transplant # Cholecystectomy # Appendectomy # AICD # Bilateral ureteral stent 07/02 Family History Other cardiovascular diseases Social History Smoking Status: Never Smoker Drug Use: none Marital Status: Housing status: lives with family, long-term Occupational Status: retired Immunizations History of Influenza Vaccine: Yes Influenza Vaccine Date: Mar 17, 2010 History of Tetanus Vaccine?: No History of Pneumococcal: No Pneumococcal Date: Jun 06, 2011 History of Hepatitis B Vaccine: No Multi-Drug Resistant Organisms History of MDRO: Yes Type of MDRO: other (UTI- klebsiella) Allergies Coded Allergies: Penicillins (Verified Allergy, Unknown, UNKNOWN REACTION, 08/18/16) PER PCP RECORDS Sulfa Antibiotics (Verified Allergy, Unknown, BODY SWELLING,NAUSEA AND VOMITNG, 08/18/16) Home Medications Scheduled Aspirin (Aspirin), 81 MG PO QPM Atorvastatin (Lipitor), 80 MG PO QPM Carvedilol (Carvedilol), 25 MG PO BID Cholecalciferol (Vitamin D3), 1 TAB PO DAILY Clopidogrel Bisulfate (Clopidogrel), 75 MG PO QPM Ertapenem Sodium (Invanz), 1 GM IV DAILY Febuxostat (Uloric), 40 MG PO NOON Loteprednol Etabonate (Lotemax), 1 DROP OPB QAM Multiple Vitamins W/ Minerals (Centrum Silver Ultra [place]), 1 TAB PO QAM Nystatin (Nystop), 1 DOSE TOP BID Pantoprazole (Pantoprazole Sodium), 40 MG PO QAM Probiotic Product (Probiotic), 1 TAB PO QPM Vancomycin Hcl (Vancomycin), 125 MG PO QAM Scheduled PRN Lorazepam (Ativan), 0.5 MG PO Q6H PRN for Anxiety Ondasetron Odt (Zofran Odt), 4 MG PO Q6H PRN for Nausea Review of Systems Constitutional: No chills, No fever, No sweats Eyes: + problem reported (+ corneal transplant R eye), No diplopia ENT: No hearing loss, No sore throat, No tinnitus Respiratory: + problem reported (wears 2 L O2 at baseline), No cough, No dyspnea at rest, No dyspnea on exertion, No shortness of breath Cardiovascular: No chest pain, No orthopnea, No palpitations Abdomen: + diarrhea, + nausea, No constipation, No pain, No vomiting Musculoskeletal: No calf pain, No swelling Genitourinary - Female: No dysuria, No hematuria Neurologic: + problem reported (confusion ), + weakness, No numbness/tingling Endocrine: No fatigue Integumentary: No itch, No rash Physical Exam Vital Signs Date Time Temp Pulse Resp B/P Pulse Ox O2 Delivery O2 Flow Rate FiO2 08/18/16 08:29 76 18 124/63 100 Room Air 08/18/16 07:37 100 Nasal Cannula 2.0 08/18/16 07:00 78 18 150/70 100 Room Air General Appearance: WD/WN, no apparent distress Head: normocephalic, atraumatic Eyes: EOMI, + pertinent finding (R eye with corneal transplant. L eye PERRLA. ) ENT: hearing grossly normal, + pertinent finding (Mucous membranes dry, no pharyngeal exudate. ) Neck: supple, no JVD Respiratory/Chest: lungs clear, no respiratory distress, no accessory muscle use Cardiovascular: regular rate, rhythm, no murmur, normal peripheral pulses Abdomen/GI: normal bowel sounds, non tender, soft, no organomegaly Back: normal inspection, no CVA tenderness Extremities/Musculoskelatal: normal inspection, no calf tenderness, no pedal edema Neurologic/Psych: alert, oriented x 3, + pertinent finding (unable to provide detailed history with confusion) Skin: normal color, warm/dry Diagnostics Laboratory Results Results Past 24 Hours Test 08/18/16 07:20 08/18/16 07:25 08/18/16 07:45 08/18/16 07:57 Range/Units Urine Color YELLOW Urine Appearance TURBID CLEAR Urine pH 5.5 4.5-7.5 Urine Specific [place] 1.010 1.000-1.030 Urine Protein 1+ NEG Urine Glucose (UA) NEG NEG Urine Ketones NEG NEG Urine Occult Blood 3+ NEG Urine Nitrite NEG NEG Urine Bilirubin NEG NEG Urine Urobilinogen NEG NEG Urine Leukocyte Esterase LARGE NEG Urine WBC (Auto) 0-5 /hpf Urine RBC (Auto) 0-4 /hpf Urine Hyaline Casts (Auto) 0-5 /lpf Urine Epithelial Cells (Auto) 0-5 /lpf Urine Bacteria (Auto) NEG Urine RBC >30 0-4 /hpf Urine WBC >30 0-5 /hpf Urine Epithelial Cells 20-30 0-5 /lpf Urine Bacteria 2+ NEG Urine Yeast (Auto) NONE PRSENT White Blood Count 9.80 4.8-10.8 K/uL Red Blood Count 3.36 4.2-5.4 M/uL Hemoglobin 10.2 12.0-16.0 g/dL Hematocrit 32.5 37-47 % Mean Corpuscular Volume 96.7 80-100 fL Mean Corpuscular Hemoglobin 30.4 25-34 pg Mean Corpuscular Hemoglobin Concent 31.4 32-36 g/dl Platelet Count 140 130-400 K/uL Mean Platelet Volume 9.6 7.4-10.4 fL Neutrophils (%) (Auto) 69.1 % Lymphocytes (%) (Auto) 17.9 % Monocytes (%) (Auto) 5.9 % Eosinophils (%) (Auto) 3.0 % Basophils (%) (Auto) 0.4 % Neutrophils # (Auto) 6.78 1.4-6.5 K/uL Lymphocytes # (Auto) 1.75 1.2-3.4 K/uL Monocytes # (Auto) 0.58 0.11-0.59 K/uL Eosinophils # (Auto) 0.29 0-0.5 K/uL Basophils # (Auto) 0.04 0-0.2 K/uL RDW Standard Deviation 56.1 36.4-46.3 fL RDW Coefficient of Variation 16.2 11.5-14.5 % Immature Granulocyte % (Auto) 3.7 % Immature Granulocyte # (Auto) 0.36 0.00-0.02 K/uL Sodium Level 146 136-145 mmol/L Potassium Level 5.4 3.5-5.1 mmol/L Chloride Level 121 98-107 mmol/L Carbon Dioxide Level 16 21-32 mmol/L Anion Gap 9.0 3-11 mmol/L Blood Urea Nitrogen 39 7-18 mg/dl Creatinine 2.60 0.60-1.20 mg/dl Est Creatinine Clear Calc Drug Dose 15.7 ml/min Estimated GFR () 19.0 Estimated GFR (Non- 16.4 BUN/Creatinine Ratio 15.1 10-20 Random Glucose 105 70-99 mg/dl Calcium Level 8.7 8.5-10.1 mg/dl Total Bilirubin 0.3 0.2-1 mg/dl Aspartate Amino Transf (AST/SGOT) 18 15-37 U/L Alanine Aminotransferase (ALT/SGPT) 17 12-78 U/L Alkaline Phosphatase 112 45-117 U/L Total Creatine Kinase 13 26-192 U/L Creatine Kinase MB 1.0 0.5-3.6 ng/ml Creatine Kinase MB Ratio 7.7 0-3.0 Troponin I < 0.015 0-0.045 ng/ml Total Protein 6.7 6.4-8.2 gm/dl Albumin 2.6 3.4-5.0 gm/dl Globulin 4.1 2.5-4.0 gm/dl Albumin/Globulin Ratio 0.6 0.9-2 Influenza Type A (RT-PCR) Neg for Influ A NEG Influenza Type B (RT-PCR) Neg for Influ B NEG Bedside Troponin I 0.000 0-0.045 ng/ml Microbiology Results 08/18/16 Blood Culture, Received Pending 08/18/16 Blood Culture, Received Pending 08/18/16 Urine Culture, Received Pending Diagnostic Radiology CT SCAN OF THE BRAIN WITHOUT IV CONTRAST CLINICAL HISTORY: Change in mental status. COMPARISON STUDY: CT of the brain dated 07/21/16. TECHNIQUE: Unenhanced axial CT scan of the brain is performed from the vertex to the skull base. CT DOSE: 614.27 mGy.cm FINDINGS: Brain parenchyma: There are age-related involutional changes noting moderate patchy subcortical and periventricular microangiopathic change. Small chronic lacunar infarcts are seen in the right cerebellar hemisphere, both caudate heads, the left basal ganglia, and the left thalamus. There is no hemorrhage, mass effect, or evidence of acute territorial ischemia by CT criteria. Bartlett-white matter is preserved. No extra-axial fluid collection is seen. Ventricles, sulci, cisterns: Prominent secondary to involutional change. Intracranial vasculature: There is atherosclerotic calcification of the cavernous carotid and vertebral arteries. Calvarium: Unremarkable. Sinuses and mastoids: The visualized paranasal sinuses are clear. The mastoid air cells are well pneumatized. Orbits: The bony orbits are grossly intact. There are bilateral ocular lens implants. IMPRESSION: Senescent changes as above with no hemorrhage, mass effect, or evidence of acute territorial ischemia by CT criteria. Electronically signed by: Hitesh Macdonald M.D. 08/18/2016 8:01 AM Dictated Date/Time: 08/18/2016 7:58 AM The status of this report is Signed. SINGLE VIEW CHEST CLINICAL HISTORY: Expiratory rhonchi. FINDINGS: An AP, portable, upright chest radiograph is compared to study dated 08/08/2016. The examination is degraded by portable technique and patient rotation. A right PICC line is unchanged in position. A cardiac AICD device is unchanged and partially obscures the left lateral chest. The heart is enlarged and there is atherosclerotic calcification of the thoracic aorta. The pulmonary vasculature is noncongested. There are low lung volumes and bibasilar atelectasis. Chronic interstitial thickening is unchanged. No airspace consolidation, large pleural effusion, or pneumothorax is seen. The skeletal structures are osteopenic. The bony thorax is grossly intact. Cholecystectomy clips are identified in the right upper quadrant. IMPRESSION: 1. Cardiomegaly and AICD. There is no radiographic evidence of congestive failure. 2. No airspace consolidation or large pleural effusion is seen. Electronically signed by: Hitesh Macdonald M.D. 08/18/2016 8:37 AM Dictated Date/Time: 08/18/2016 8:36 AM The status of this report is Signed. EKG EKG reviewed Vent. rate 78 BPM NM interval 168 ms QRS duration 86 ms QT/QTc 392/446 ms P-R-T axes 63 -[address] wave inversions in lateral leads V4, V5, V6 as compared to EKG on 08/05/16 Impression Assessment and Plan This is an 81 yo F with PMHx CKD stage III, multiple occurrences of BONNIE, CHF, HTN, s/p AZ, DM II, UTI with MDRO including Klebsiella. PT presents with worsening weakness, confusion and diarrhea over the past 2 days in the setting of klebsiella UTI currently being treated with ertapenem 1g daily x 12 days, scheduled for at least 2 weeks. Multi-Drug Resistant Klebsiella Urinary Tract Infection with Bilateral Stents: - PT has had a complicated course of multiple UTI with klebsiella, - Await UCx - Follow BCx although does not appear to be septic - R PICC line was placed on 08/07/16 and Ertapenem started, has continue this daily. - For now will continue. - ID consulted. - during last admit ID said abx therapy for at least 2 weeks, may need extended for 3-4 wks. -follows with Dr. Griffin - Patient was supposed to have ureteral stent changed 3 days ago but did not d/ t altered mental status and weakness- urology consulted Acute Kidney Injury Superimposed on CKD Stage IV: -Creatinine 2.6 currently, Per records baseline approx. 3.1-3.2 - Nephrotoxic medications avoided and renally dosed medications administered Anemia of Chronic Disease: -Hemoglobin stable Hypernatremia Hyperkalemia Hyperchloremia - Chloride 121, - Potassium 5.4 - Check magnesium - Likely will improved with fluids, cont NSS @ 80mL/hr, appears to be dehydrated History of C. Difficile Infection: - Vancomycin 125 mg daily was continued for coverage, - C. difficile pending Chronic Systolic Congestive Heart Failure without Exacerbation: - Echo (2016) - EF 35-40% completed during last admission - Daily weights and I&Os monitored without evidence of failure during admission - Patient maintained on Carvedilol 25 mg BID - Continue ANG for now as no BONNIE although pt has significant hx of this. DVT PPx: Heparin sq BID, CODI/SCDs CODE STATUS: FULL CODE Disposition: Patient from home, acts as primary caregiver and has refused physical therapy/occupational therapy in the past. The last PT/OT to see the patient although unlikely that the patient or will agree to SNF as has been recommended before. Level of Care Med/Surg Advanced Directives Existing Advance Directive: Yes Existing Living Will: Yes Existing Power of Manager Data Warehousing: Yes Existing Health Care Proxy: Yes Resuscitation Status FULL RESUSCITATION VTE Prophylaxis VTE Risk Assessment Done? Y/N: Yes Risk Level: Low Given or contraindicated: Unfractionated heparin SQ, T.E.D. Stockings, SCD's Reviewed: Pt Seen/Exam by Me History Physician Aircraft Log Clerk Supervision Note: I interviewed and examined the patient. Discussed with SELENA Rutledge and agree with findings and plan as documented in the note. Any exceptions or clarifications are listed here: Mrs. Chase is an 81 yo female with multiple medical problems including ischemic CM w/ LVEF 25%, moderate MR, pulmonary HTN and moderate TR. She has an AICD in place. She has CKD stage V (end stage renal disease) w/ baseline creatinine 3.0 (EGFR 13 cc/min). Mrs. Chase has urinary and fecal incontinence. She wears Tranquility briefs. She suffers from interstitial cystitis and recurrent UTI. This has resulted in need for chronic antibiotic therapy which has been complicated by clostridium difficile colitis and recurrent diarrhea. In 07/02 the patient underwent cystoscopy. Mrs. Chase was found to have severe bladder inflammation resulting in bilateral ureteral obstruction and BONNIE. She subsequently underwent bilateral ureteral stent placement. She has been having these changed out on a regular basis by urology. She is overdue for her next ureteral stent change. She is here with possible hallucinations, altered mental status, weakness, and new diarrhea in the last 2 days; was concerned about recurrent UTI despite current treatment with ertapenem through PICC at home. She is afebrile. Pt reports she feels totally at her baseline and doesn't understand why her made her come in to the hospital. Says she was yelling out to him to get something for her at home and he thought she was being argumentative and thought that was unusual for her. Regardless, she has been weaker and had diarrhea, but no BMs since admission. Vitals reviewed Obese, NAD, lying in bed, AAOx3 RRR no mgr CTAB no wcr unlabored breathing Abd soft, NT ND obese Ext no edema 81 yo female with chronic debilitation, resistant UTIs, h/o C. diff diarrhea, CHF, CAD, here with diarrhea, worsening weakness, possible altered mental status. -continue on ertapenem for now for previous UTI -appreciate ID consult-added Gentamicin x 1 -follow up on Ur cx -continue po daily prophylaxis for C. diff but given new diarrhea need to check for recurrence of C. diff Non anion gap met acidosis with HCO3 15 and and hyperkalemia 5.5, CKD stage IV -change IVFs to D5W + 150 HCO3 -met acidosis non AG most likely from GI losses from diarrhea superimposed on CKD Stage IV -follow PRP
[2016-08-18 10:30] VITALS: BP 143/62; PULSE 79; TEMP 36.7; O2SAT 100; Ht 162.6 cm; Wt 69.7 kg
[2016-08-18] MEDS: ONDANSETRON 4MG OD TAB PO PRN (12:26)
[2016-08-18] MEDS: [UNRECOGNIZED DRUG - REMARK] SCH ×3 (12:56→19:44)
[2016-08-18] MEDS: FEBUXOSTAT 40 MG TAB PO SCH (12:56)
[2016-08-18] MEDS ORDERED: ERTAPENEM IV 500 MG in SODIUM CHLORIDE 0.9% 50 ML IV SCH (13:00)
[2016-08-18] MEDS: RASPBERRY SYRUP 5 ML UDP PO SCH (13:09)
[2016-08-18] MEDS: VANCOMYCIN HCL 125 MG/2.5ML SOLN PO SCH (13:09)
[2016-08-18] MEDS: CARVEDILOL 25 MG TAB PO SCH ×2 (13:10→19:45)
[2016-08-18] MEDS: PANTOprazole SOD 40 MG TAB PO SCH (13:10)
[2016-08-18] MEDS: CEROVITE ADV FORMULA TAB PO SCH (13:10)
[2016-08-18] MEDS: CHOLECALCIFEROL 1000 INTER.UNIT TAB PO SCH (13:10)
[2016-08-18] MEDS: NYSTATIN POWDER 15GM BTL EXT SCH ×2 (13:11→19:44)
[2016-08-18] MEDS: HEPARIN SOD 5000 UNIT/0.5 ML CARP SQ SCH ×2 (13:23→19:47)
[2016-08-18 15:21] VITALS: BP 102/66; PULSE 80; TEMP 36.8; O2SAT 100
[2016-08-18 15:24] LABS: BLOOD UREA NITROGEN 39 mg/dl (7-18); BUN/CREATININE RATIO 15.7 (10-20); CALCIUM 8.5 mg/dl (8.5-10.1); CARBON DIOXIDE 15 mmol/L (21-32); CHLORIDE 119 mmol/L (98-107); GLUCOSE 101 mg/dl (70-99); POTASSIUM 5.5 mmol/L (3.5-5.1); SODIUM 145 mmol/L (136-145)
[2016-08-18 16:00] VITALS: O2SAT 100
--- NOTE | 2016-08-18 18:51 | Medical Consult ---
Consultation Date of Consultation: Aug 18, 2016. Attending Physician: Davina Tam MD Reason for Consultation: MDR UTI on ertapenem. History of Present Illness 81-year-old female well known to the Infectious Disease service, who has had multiple admissions for urinary tract infections and changes in mental status, recently hospitalized for another Klebsiella UTI with encephalopathy. Was discharged home to complete a course of IV ertapenem, but over the last several days has becoming increasingly weak with inability to walk and with her now unable to care for her adequately at home. She has not had fever reported, somewhat more confused, no significant abdominal or flank pain. She has been restarted on IV ertapenem. Past Medical/Surgical History Medical Problems: (1) Acute on chronic kidney failure Status: Acute (2) Acute renal failure Status: Acute (3) Altered mental status Status: Acute (4) Altered mental status Status: Acute (5) ARF (acute renal failure) Status: Acute (6) CRD (chronic renal disease) Status: Acute (7) Dehydration Status: Acute (8) Dehydration Status: Acute (9) Fever Status: Acute (10) Hyperkalemia Status: Acute (11) Hyperkalemia Status: Acute (12) Hypomagnesemia Status: Acute (13) PICC (peripherally inserted central catheter) in place Status: Acute (14) Pneumonia Status: Acute (15) Renal failure Status: Acute (16) Renal insufficiency Status: Acute (17) Renal insufficiency Status: Acute (18) Sepsis Status: Acute (19) Sepsis Status: Acute (20) Uremia Status: Acute (21) UTI (urinary tract infection) Status: Acute (22) UTI (urinary tract infection) Status: Acute (23) UTI (urinary tract infection) Status: Acute (24) Weakness Status: Acute (25) Weakness Status: Acute (26) Weakness Status: Acute (27) Weakness Status: Acute (28) Weakness Status: Acute Medical Problems: (1) Acute hypernatremia (2) Acute kidney injury (3) Acute on chronic renal failure (4) Acute renal failure superimposed on stage 4 chronic kidney disease (5) Acute urinary tract infection (6) Anemia (7) Benign hypertension (8) Cardiac catheterization (9) CHF (congestive heart failure) (10) CHF (congestive heart failure) (11) Cholecystectomy (12) Chronic kidney disease (13) CKD (chronic kidney disease) stage 5, GFR less than 15 ml/min (14) Coronary artery disease (15) Dehydration (16) Diabetes (17) Ischemic cardiomyopathy (18) Metabolic acidosis (19) Metabolic acidosis with increased anion gap and reduced excretion of inorganic acids (20) Myocardial infarction (21) Pneumonia (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 (23) Recurrent UTI (24) Secondary hyperparathyroidism of renal origin (25) Sepsis (26) Sepsis due to Klebsiella (27) sepsis recurrent UTI BONNIE on ckd (28) Systolic CHF (29) UTI (urinary tract infection) (30) UTI (urinary tract infection) (31) UTI (urinary tract infection) (32) UTI, altered mental status (33) Weakness Surgical Problems: (1) History of cholecystectomy (2) History of ureter stent Family History Other cardiovascular diseases Social History Smoking Status: Never Smoker Drug Use: none Marital Status: Housing Status: lives with significant other Occupation Status: retired Allergies Coded Allergies: Penicillins (Verified Allergy, Unknown, UNKNOWN REACTION, 08/18/16) PER PCP RECORDS Sulfa Antibiotics (Verified Allergy, Unknown, BODY SWELLING,NAUSEA AND VOMITNG, 08/18/16) Current Inpatient Medications Current Inpatient Medications Medications (Trade) Dose Ordered Sig/Helder Route Start Time Stop Time Status Last Admin Dose Admin Acetaminophen (Tylenol Tab) 650 mg Q4H PRN PO 08/18/16 08:45 09/17/16 08:44 Heparin Sodium (Porcine) 5000 unit 5,000 unit Q12 SQ 08/18/16 13:00 09/17/16 12:59 08/18/16 13:23 5,000 UNIT Sodium Chloride (Nss 1000ml) 1,000 ml @ 80 mls/hr [id number] IV 08/18/16 08:36 09/17/16 08:35 08/18/16 12:26 80 MLS/HR Aspirin (Ecotrin Tab) 81 mg QPM PO 08/18/16 21:00 09/17/16 20:59 Atorvastatin Calcium (Lipitor Tab) 80 mg QPM PO 08/18/16 21:00 09/17/16 20:59 Carvedilol (Coreg Tab) 25 mg BID PO 08/18/16 12:30 09/17/16 12:29 08/18/16 13:10 25 MG Cholecalciferol (Vitamin D Tab) 1 inter.unit DAILY PO 08/18/16 12:30 09/17/16 12:29 08/18/16 13:10 1 INTER.UNIT Clopidogrel Bisulfate (plAVix TAB) 75 mg QPM PO 08/18/16 21:00 09/17/16 20:59 Lorazepam (Ativan Tab) 0.5 mg Q6H PRN PO 08/18/16 08:45 09/17/16 08:44 Multivitamins/ Minerals (Multivitamin W/ Minerals Tab) 1 tab QAM PO 08/18/16 12:30 09/17/16 12:29 08/18/16 13:10 1 TAB Nystatin (Mycostatin Powder) 1 appln BID EXT 08/18/16 12:30 09/17/16 12:29 08/18/16 13:11 1 APPLN Ondansetron HCl (Zofran Odt) 4 mg Q6H PRN PO 08/18/16 08:45 09/17/16 08:44 08/18/16 12:26 4 MG Pantoprazole Sodium (Protonix Tab) 40 mg QAM PO 08/18/16 12:30 09/17/16 12:29 08/18/16 13:10 40 MG Vancomycin HCl (Vancomycin Oral Soln) 125 mg QAM PO 08/18/16 13:00 09/01/16 12:59 08/18/16 13:09 125 MG Febuxostat (Uloric) 40 mg DAILY@1200 PO 08/18/16 13:00 09/17/16 12:59 08/18/16 12:56 40 MG Miscellaneous Information (Order Awaiting Action) 1 ea TID N/A 08/18/16 12:45 09/17/16 12:44 08/18/16 12:56 1 EA Lactobacillus Acidophilus (Floranex Tab) 1 tab QPM PO 08/18/16 21:00 09/17/16 20:59 Raspberry 5 ml 5 ml QAM PO 08/18/16 13:00 09/01/16 12:59 08/18/16 13:09 5 ML Ertapenem/Sodium Chloride (Invanz Iv/Nss 50ml) 55 ml @ 110 mls/hr DAILY@0900 IV 08/18/16 13:00 08/28/16 12:59 08/18/16 12:55 110 MLS/HR Review of Systems All systems were reviewed and are negative except as per HPI Physical Exam Date Time Temp Pulse Resp B/P Pulse Ox O2 Delivery O2 Flow Rate FiO2 08/18/16 15:21 36.8 80 18 102/66 100 Nasal Cannula 2.0 08/18/16 10:30 36.7 79 18 143/62 100 Nasal Cannula 2.0 08/18/16 09:52 79 18 147/62 99 Nasal Cannula 2.0 08/18/16 08:29 76 18 124/63 100 Room Air 08/18/16 07:37 100 Nasal Cannula 2.0 08/18/16 07:00 78 18 150/70 100 Room Air General Appearance: WD/WN, no apparent distress Head: normocephalic, atraumatic Eyes: normal inspection, EOMI, sclerae normal ENT: normal ENT inspection, pharynx normal Neck: supple, no adenopathy, trachea midline Respiratory/Chest: chest non-tender, lungs clear, normal breath sounds, no respiratory distress Cardiovascular: regular rate, rhythm, no gallop, no murmur Abdomen/GI: normal bowel sounds, non tender, soft, no organomegaly Back: normal inspection, no CVA tenderness Extremities/Musculoskelatal: normal inspection, no calf tenderness Neurologic/Psych: alert, + disoriented Skin: normal color, warm/dry, no rash Lymphatic: no adenopathy Laboratory Results Date/Time Source Procedure Growth Status 08/18/16 07:30 Blood Blood Culture Pending Received 08/18/16 07:25 Blood Blood Culture Pending Received 08/18/16 07:20 Urine,Catheterized Urine Culture Pending Received Last 24 Hours Test 08/18/16 07:20 08/18/16 07:25 08/18/16 07:45 08/18/16 07:57 Urine Color YELLOW Urine Appearance TURBID Urine pH 5.5 Urine Specific Driver 1.010 Urine Protein 1+ Urine Glucose (UA) NEG Urine Ketones NEG Urine Occult Blood 3+ Urine Nitrite NEG Urine Bilirubin NEG Urine Urobilinogen NEG Urine Leukocyte Esterase LARGE Urine WBC (Auto) /hpf Urine RBC (Auto) /hpf Urine Hyaline Casts (Auto) /lpf Urine Epithelial Cells (Auto) /lpf Urine Bacteria (Auto) Urine RBC >30 /hpf Urine WBC >30 /hpf Urine Epithelial Cells 20-30 /lpf Urine Bacteria 2+ Urine Yeast (Auto) White Blood Count 9.80 K/uL Red Blood Count 3.36 M/uL Hemoglobin 10.2 g/dL Hematocrit 32.5 % Mean Corpuscular Volume 96.7 fL Mean Corpuscular Hemoglobin 30.4 pg Mean Corpuscular Hemoglobin Concent 31.4 g/dl Platelet Count 140 K/uL Mean Platelet Volume 9.6 fL Neutrophils (%) (Auto) 69.1 % Lymphocytes (%) (Auto) 17.9 % Monocytes (%) (Auto) 5.9 % Eosinophils (%) (Auto) 3.0 % Basophils (%) (Auto) 0.4 % Neutrophils # (Auto) 6.78 K/uL Lymphocytes # (Auto) 1.75 K/uL Monocytes # (Auto) 0.58 K/uL Eosinophils # (Auto) 0.29 K/uL Basophils # (Auto) 0.04 K/uL RDW Standard Deviation 56.1 fL RDW Coefficient of Variation 16.2 % Immature Granulocyte % (Auto) 3.7 % Immature Granulocyte # (Auto) 0.36 K/uL Sodium Level 146 mmol/L Potassium Level 5.4 mmol/L Chloride Level 121 mmol/L Carbon Dioxide Level 16 mmol/L Anion Gap 9.0 mmol/L Blood Urea Nitrogen 39 mg/dl Creatinine 2.60 mg/dl Est Creatinine Clear Calc Drug Dose 15.7 ml/min Estimated GFR () 19.0 Estimated GFR (Non- 16.4 BUN/Creatinine Ratio 15.1 Random Glucose 105 mg/dl Calcium Level 8.7 mg/dl Magnesium Level 1.8 mg/dl Total Bilirubin 0.3 mg/dl Aspartate Amino Transf (AST/SGOT) 18 U/L Alanine Aminotransferase (ALT/SGPT) 17 U/L Alkaline Phosphatase 112 U/L Total Creatine Kinase 13 U/L Creatine Kinase MB 1.0 ng/ml Creatine Kinase MB Ratio 7.7 Troponin I < 0.015 ng/ml Total Protein 6.7 gm/dl Albumin 2.6 gm/dl Globulin 4.1 gm/dl Albumin/Globulin Ratio 0.6 Influenza Type A (RT-PCR) Neg for Influ A Influenza Type B (RT-PCR) Neg for Influ B Bedside Troponin I 0.000 ng/ml Test 08/18/16 14:30 Sodium Level 145 mmol/L Potassium Level 5.5 mmol/L Chloride Level 119 mmol/L Carbon Dioxide Level 15 mmol/L Anion Gap 11.0 mmol/L Blood Urea Nitrogen 39 mg/dl Creatinine 2.50 mg/dl Est Creatinine Clear Calc Drug Dose 16.3 ml/min Estimated GFR () 19.9 Estimated GFR (Non- 17.2 BUN/Creatinine Ratio 15.7 Random Glucose 101 mg/dl Calcium Level 8.5 mg/dl Troponin I < 0.015 ng/ml CLINICAL HISTORY: Expiratory rhonchi. FINDINGS: An AP, portable, upright chest radiograph is compared to study dated 08/08/2016. The examination is degraded by portable technique and patient rotation. A right PICC line is unchanged in position. A cardiac AICD device is unchanged and partially obscures the left lateral chest. The heart is enlarged and there is atherosclerotic calcification of the thoracic aorta. The pulmonary vasculature is noncongested. There are low lung volumes and bibasilar atelectasis. Chronic interstitial thickening is unchanged. No airspace consolidation, large pleural effusion, or pneumothorax is seen. The skeletal structures are osteopenic. The bony thorax is grossly intact. Cholecystectomy clips are identified in the right upper quadrant. IMPRESSION: 1. Cardiomegaly and AICD. There is no radiographic evidence of congestive failure. 2. No airspace consolidation or large pleural effusion is seen. Electronically signed by: Hitesh Macdonald M.D. 08/18/2016 8:37 AM Assessment & Plan 81 yo female with recurrent UTIs, most recently with Klebsiella, now with severe weakness, encephalopathy, and possible recurrent UTI. Now clear whether ertapenem may be causing adverse effects. Will give dose of gentamicin pending final culture results. ID service will follow.
--- NOTE | 2016-08-18 18:55 | GENITOURINARY CONSULTATION ---
DATE OF CONSULTATION: 08/18/2016 REASON FOR THE CONSULT: UTI with confusion. HISTORY OF PRESENTATION: The patient is an 81-year-old female who is on her 15th admission in the last 2 years for confusion and chronic recurrent UTIs. The patient had a bladder that was chronically infected, so badly that it apparently obstructed her ureters bilaterally. During one of her admissions stents were placed, which have chronically colonized her kidneys. She comes back every month or two with confusion and has been placed on antibiotics. Her renal function has declined and her stents have been periodically replaced. She was scheduled to have her stents replaced earlier this week, but her decided that she was not feeling well to had this done, so we canceled it. She also has had C. difficile and is on chronic vancomycin and had been recently admitted for UTI, came back with worsening confusion and had a CAT scan in the Emergency Room of her brain which showed chronic changes, but nothing new and has been placed on antibiotics. The patient is well known to myself as well as all members in our group. She is being followed by ID, because she is having increasing resistance and the management of her problems has been complicated by C. difficile. She did have some diarrhea last several days, but apparently did not have any today. Of note, her creatinine, which is generally elevated when she comes in and improves, was 2.6, which is lower than it has been in months. ID is to see her, blood and urine cultures are pending and the patient has been started on ertapenem pending the consult. She also is getting oral vancomycin. The patient does take Plavix and aspirin, has some coronary artery disease as well. PHYSICAL EXAMINATION: GENERAL: The patient is alert and her answers all questions for her. She has no obvious discomfort. ABDOMEN: Benign. LABORATORY DATA: As previously stated, her creatinine was 2.6 and she has slightly high potassium of 5.4. Her white blood cell count was normal at 9.8 and hematocrit was 32.5. Urine shows red and white cells and bacteria. ASSESSMENT AND PLAN: The patient has chronic infection with chronic indwelling stents secondary to chronic hydronephrosis with stasis. She appears to be draining as her creatinine is low and is quite some time. We will follow and discuss with Dr. Reeves, timing of stent replacement as this needs to be done on a maintenance basis. We will leave the antibiotic portion of her complicated chronic urinary tract infections to infectious disease. We will follow along. Thank you very much for this consultation.
[2016-08-18] MEDS: SODIUM BICARBONATE 8.4% INJ 150 MEQ in DEXTROSE 5% 1000ML 1,000 ML IV SCH (19:29)
[2016-08-18 19:42] VITALS: BP 105/64; PULSE 104
[2016-08-18] MEDS: ASPIRIN 81 MG ECTAB PO SCH (19:44)
[2016-08-18] MEDS: ATORVASTATIN 40 MG TAB PO SCH (19:44)
[2016-08-18] MEDS: CLOPIDOGREL BISULFATE 75 MG TAB PO SCH (19:44)
[2016-08-18] MEDS: LACTOBACILLUS ACIDOPHILUS (FLORANEX) TAB PO SCH (19:45)
[2016-08-18] MEDS ORDERED: DEXTROSE 5% IV SCH (20:00)
[2016-08-18] MEDS ORDERED: GENTAMICIN IV SCH (20:00)
[2016-08-18 23:55] VITALS: BP 118/69; PULSE 79; TEMP 36.8; O2SAT 95
[2016-08-19] MEDS: ONDANSETRON 4MG OD TAB PO PRN (01:30)
[2016-08-19 05:48] LABS: BASO % 0.7 %; BASO ABS # 0.06 K/uL (0-0.2); COMPLETE YES; EOS % 3.7 %; HEMATOCRIT 28.1 % (37-47); IG% 2.3 %; LYMPH % 26.9 %; LYMPH ABS # 2.18 K/uL (1.2-3.4); MEAN CELL VOLUME 95.6 fL (80-100); MEAN CORPUSCULAR HGB CONC 32.4 g/dl (32-36); MEAN PLATELET VOLUME 9.5 fL (7.4-10.4); MONO % 6.4 %; PLATELET COUNT 127 K/uL (130-400); RED BLOOD COUNT 2.94 M/uL (4.2-5.4); WHITE BLOOD COUNT 8.09 K/uL (4.8-10.8)
[2016-08-19 06:23] LABS: BUN/CREATININE RATIO 14.8 (10-20); CALCIUM 7.8 mg/dl (8.5-10.1); CREATININE 2.5 mg/dl (0.60-1.20); POTASSIUM 4.9 mmol/L (3.5-5.1)
[2016-08-19] MEDS: SODIUM BICARBONATE 8.4% INJ 150 MEQ in DEXTROSE 5% 1000ML 1,000 ML IV SCH ×2 (06:26→17:19)
--- NOTE | 2016-08-19 07:53 | Hospitalist Progress Note ---
Hospitalist Progress Note Date of Service Aug 19, 2016. (Sue Rutledge PA-C) Subjective Pt evaluation today including: conversation w/ patient, conversation w/ family , physical exam, chart review, lab review, review of studies, review of inpatient medication list Pain: none PO Intake: good Voiding: no voiding problems The patient was seen and examined this morning. Patient reports feeling like she did yesterday. The patient's is at bedside. The patient reports sleeping good overnight, ate breakfast this morning. She denies having fevers sweats or chills. The patient denies abdominal discomfort, cramping, dysuria, hematuria, bowel movement since being admitted. The patient had reported diarrhea prior to coming into the hospital. C. difficile is still pending. The patient and has been are satisfied with her care given so far as urology and infectious disease have both been in to see them. The is hoping that ureteral stents will be replaced during this hospital stay. All Other Systems: Reviewed and Negative (other than listed above) (Sue Rutledge PA-C) Objective Vital Signs Date Time Temp Pulse Resp B/P Pulse Ox O2 Delivery O2 Flow Rate FiO2 08/19/16 00:00 Nasal Cannula 2.0 08/18/16 23:55 36.8 79 18 118/69 95 2.0 08/18/16 20:00 Nasal Cannula 2.0 08/18/16 19:42 104 105/64 08/18/16 16:00 100 Nasal Cannula 2.0 08/18/16 15:21 36.8 80 18 102/66 100 Nasal Cannula 2.0 08/18/16 10:30 36.7 79 18 143/62 100 Nasal Cannula 2.0 08/18/16 09:52 79 18 147/62 99 Nasal Cannula 2.0 08/18/16 08:29 76 18 124/63 100 Room Air (Sue Rutledge PA-C) Physical Exam General Appearance: WD/WN, no apparent distress, + pertinent finding (frail) Eyes: PERRL, EOMI ENT: hearing grossly normal, pharynx normal Neck: supple, no JVD Respiratory/Chest: chest non-tender, no respiratory distress, no accessory muscle use, + pertinent finding (crackles in bilateral bases, no wheezing or rales) Cardiovascular: regular rate, rhythm, no murmur, + JVD (mild) Abdomen: normal bowel sounds, non tender, soft, no organomegaly Extremities: non-tender, no pedal edema, no calf tenderness Neurologic/Psychiatric: alert, + pertinent finding (oriented to self place and time) Skin: normal color, warm/dry (Sue Rutledge, CORYC) Laboratory Results Last 24 Hours Test 08/18/16 07:57 08/18/16 14:30 08/19/16 04:44 08/19/16 05:33 Bedside Troponin I 0.000 ng/ml Sodium Level 145 mmol/L 147 mmol/L Potassium Level 5.5 mmol/L 4.9 mmol/L Chloride Level 119 mmol/L 117 mmol/L Carbon Dioxide Level 15 mmol/L 20 mmol/L Anion Gap 11.0 mmol/L 10.0 mmol/L Blood Urea Nitrogen 39 mg/dl 37 mg/dl Creatinine 2.50 mg/dl 2.50 mg/dl Est Creatinine Clear Calc Drug Dose 16.3 ml/min 16.3 ml/min Estimated GFR () 19.9 19.9 Estimated GFR (Non- 17.2 17.2 BUN/Creatinine Ratio 15.7 14.8 Random Glucose 101 mg/dl 104 mg/dl Calcium Level 8.5 mg/dl 7.8 mg/dl Troponin I < 0.015 ng/ml (Sue Rutledge, SELENA-C) Diagnostic Results EKG repeated this morning: T wave inversions in the lateral lead appeared to be less significant today. May repeat this tomorrow (Sue Rutledge PA-C) Assessment and Plan This is an 81 yo F with PMHx CKD stage III, multiple occurrences of BONNIE, CHF, HTN, s/p AR, DM II, UTI with MDRO including Klebsiella. PT presents with worsening weakness, confusion and diarrhea over the past 2 days in the setting of klebsiella UTI currently being treated with ertapenem 1g daily x 12 days, scheduled for at least 2 weeks. 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 -Follows with Dr. Griffin - Patient was supposed to have ureteral stent changed 3 days ago but did not d/ t altered mental status and weakness - urology consulted- Dr. Boone was in to see the patient yesterday, plans to discuss exchanging ureteral stents with Dr. Reeves tomorrow. We will await recommendations regarding ureteral stent change, is requesting this be done during admission day. CKD Stage IV: - Creatinine 2.6 currently, Per records baseline approx. 3.1-3.2 - Nephrotoxic medications avoided and renally dosed medications administered Anemia of Chronic Disease: -Hemoglobin stable Non anion gap met acidosis with HCO3 15 and and hyperkalemia 5.5, CKD stage IV Hypernatremia Hyperkalemia Hyperchloremia - Chloride 121, - Potassium 5.4 - Check magnesium - Continue D5W + 150 HCO3 - met acidosis non AG most likely from GI losses from diarrhea superimposed on CKD Stage IV - improving from HCo3 infusion - follow PRP with morning labs History of C. Difficile Infection: - Vancomycin 125 mg daily was continued for coverage of c diff. No bowel movements since admission - C. difficile pending Chronic Systolic Congestive Heart Failure without Exacerbation: AICD - Echo (2016) - EF 35-40% completed during last admission - Daily weights and I&Os monitored without evidence of failure during admission - Patient maintained on Carvedilol 25 mg BID - Continue ANG for now as no BONNIE although pt has significant hx of this. DVT PPx: Heparin sq BID, CODI/SCDs CODE STATUS: FULL CODE Disposition: Patient from home, acts as primary caregiver and has refused physical therapy/occupational therapy in the past. PT/OT to see. (Sue Rutledge PA-C) Reviewed: Pt Seen/Exam by Me (Davina Tam MD) History Resident Physician Supervision Note: I interviewed and examined the patient. Discussed with SELENA Rutledge and agree with findings and plan as documented in the note. Any exceptions or clarifications are listed here: Mrs. Chase is an 81 yo female with multiple medical problems including ischemic CM w/ LVEF 25%, moderate MR, pulmonary HTN and moderate TR. She has an AICD in place. She has CKD stage V (end stage renal disease) w/ baseline creatinine 3.0 (EGFR 13 cc/min). Mrs. Chase has urinary and fecal incontinence. She wears Tranquility briefs. She suffers from interstitial cystitis and recurrent UTI. This has resulted in need for chronic antibiotic therapy which has been complicated by clostridium difficile colitis and recurrent diarrhea. In 07/02 the patient underwent cystoscopy. Mrs. Chase was found to have severe bladder inflammation resulting in bilateral ureteral obstruction and BONNIE. She subsequently underwent bilateral ureteral stent placement. She has been having these changed out on a regular basis by urology. She is overdue for her next ureteral stent change. She is here with possible hallucinations, altered mental status, weakness, and new diarrhea in the last 2 days; was concerned about recurrent UTI despite current treatment with ertapenem through PICC at home. She is afebrile. Pt reports she feels totally at her baseline and doesn't understand why her made her come in to the hospital. Says she was yelling out to him to get something for her at home and he thought she was being argumentative and thought that was unusual for her. Regardless, she has been weaker and had diarrhea, but no BMs since admission. Today is present at bedside and answers all questions for pt unless I specifically ask for pt to answer the question herself. No more diarrhea, feels back to baseline. Vitals reviewed Obese, NAD, lying in bed, AAOx3 RRR no mgr CTAB no wcr unlabored breathing Abd soft, NT ND obese Ext no edema 81 yo female with chronic debilitation, resistant UTIs, h/o C. diff diarrhea, CHF, CAD, here with diarrhea, worsening weakness, possible altered mental status. Urine culture no growth and pt at baseline, is certainly oriented and not confused. -continue on ertapenem for now for previous UTI -appreciate ID consult-added Gentamicin x 1 -continue po daily prophylaxis for C. diff but given new diarrhea need to check for recurrence of C. diff--> no more diarrhea so not an issue -await changeout of ureteral stents and then dc to home Non anion gap met acidosis with HCO3 15 and and hyperkalemia 5.5, CKD stage IV --> HCO3 improved from 15--> 20 -continue IVFs to D5W + 150 HCO3 -met acidosis non AG most likely from GI losses from diarrhea superimposed on CKD Stage IV -follow PRP Documented By: Davina Tam (Davina Tam MD)
[2016-08-19 08:08] VITALS: BP 156/79; PULSE 76; O2SAT 100
[2016-08-19] MEDS: PANTOprazole SOD 40 MG TAB PO SCH (08:37)
[2016-08-19] MEDS: CHOLECALCIFEROL 1000 INTER.UNIT TAB PO SCH (08:37)
[2016-08-19] MEDS: RASPBERRY SYRUP 5 ML UDP PO SCH (08:37)
[2016-08-19] MEDS: VANCOMYCIN HCL 125 MG/2.5ML SOLN PO SCH (08:37)
[2016-08-19] MEDS: CARVEDILOL 25 MG TAB PO SCH ×2 (08:37→20:49)
[2016-08-19] MEDS: CEROVITE ADV FORMULA TAB PO SCH (08:38)
[2016-08-19] MEDS: FEBUXOSTAT 40 MG TAB PO SCH (08:38)
[2016-08-19] MEDS: HEPARIN SOD 5000 UNIT/0.5 ML CARP SQ SCH ×2 (08:41→20:53)
[2016-08-19] MEDS: [UNRECOGNIZED DRUG - REMARK] SCH ×3 (08:42→20:49)
[2016-08-19] MEDS: NYSTATIN POWDER 15GM BTL EXT SCH ×2 (08:42→20:48)
[2016-08-19 15:29] VITALS: BP 126/73; PULSE 77; TEMP 37.1; O2SAT 100
[2016-08-19 20:47] VITALS: BP 136/75; PULSE 78
[2016-08-19] MEDS: ASPIRIN 81 MG ECTAB PO SCH (20:50)
[2016-08-19] MEDS: LACTOBACILLUS ACIDOPHILUS (FLORANEX) TAB PO SCH (20:51)
[2016-08-19] MEDS: ATORVASTATIN 40 MG TAB PO SCH (20:51)
[2016-08-19] MEDS: CLOPIDOGREL BISULFATE 75 MG TAB PO SCH (20:51)
--- NOTE | 2016-08-19 23:38 | Progress Note ---
Subjective Date of Service: Aug 19, 2016. Subjective Pt evaluation today including: conversation w/ patient, conversation w/ family , physical exam, chart review, lab review pt w/o diarrhea. No reported problems . would like stents changed while in hospital. Problem List Medical Problems: (1) Acute on chronic kidney failure Status: Acute (2) Acute renal failure Status: Acute (3) Altered mental status Status: Acute (4) Altered mental status Status: Acute (5) ARF (acute renal failure) Status: Acute (6) CRD (chronic renal disease) Status: Acute (7) Dehydration Status: Acute (8) Dehydration Status: Acute (9) Fever Status: Acute (10) Hyperkalemia Status: Acute (11) Hyperkalemia Status: Acute (12) Hypomagnesemia Status: Acute (13) PICC (peripherally inserted central catheter) in place Status: Acute (14) Pneumonia Status: Acute (15) Renal failure Status: Acute (16) Renal insufficiency Status: Acute (17) Renal insufficiency Status: Acute (18) Sepsis Status: Acute (19) Sepsis Status: Acute (20) Uremia Status: Acute (21) UTI (urinary tract infection) Status: Acute (22) UTI (urinary tract infection) Status: Acute (23) UTI (urinary tract infection) Status: Acute (24) Weakness Status: Acute (25) Weakness Status: Acute (26) Weakness Status: Acute (27) Weakness Status: Acute (28) Weakness Status: Acute Objective Vital Signs Date Time Temp Pulse Resp B/P Pulse Ox O2 Delivery O2 Flow Rate FiO2 08/19/16 20:47 78 136/75 08/19/16 19:37 Nasal Cannula 2.0 08/19/16 16:00 Nasal Cannula 2.0 08/19/16 15:29 37.1 77 18 126/73 100 Nasal Cannula 2.0 08/19/16 08:08 76 18 156/79 100 Nasal Cannula 2.0 08/19/16 08:00 Nasal Cannula 2.0 08/19/16 00:00 Nasal Cannula 2.0 08/18/16 23:55 36.8 79 18 118/69 95 2.0 Laboratory Results Last 24 Hours Test 08/19/16 05:33 RDW Standard Deviation 55.7 fL RDW Coefficient of Variation 16.2 % Immature Granulocyte % (Auto) 2.3 % Immature Granulocyte # (Auto) 0.19 K/uL Nucleated RBC Absolute Count (auto) 0.00 K/uL Nucleated Red Blood Cells % 0.0 % Sodium Level 147 mmol/L Potassium Level 4.9 mmol/L Chloride Level 117 mmol/L Carbon Dioxide Level 20 mmol/L Anion Gap 10.0 mmol/L Blood Urea Nitrogen 37 mg/dl Creatinine 2.50 mg/dl Est Creatinine Clear Calc Drug Dose 16.3 ml/min Estimated GFR () 19.9 Estimated GFR (Non- 17.2 BUN/Creatinine Ratio 14.8 Random Glucose 104 mg/dl Calcium Level 7.8 mg/dl Assessment and Plan continue antibiotic per Id renal function as good as it has been in mny months so no urgency regarding stent exchange but will leave to Dr. Reeevs who follows the pt Continued [facility] stay due to: ambulation difficulties, multiple IV medications needed
[2016-08-20 00:33] VITALS: BP 126/68; PULSE 79; TEMP 36.6; O2SAT 98
[2016-08-20] MEDS: SODIUM BICARBONATE 8.4% INJ 150 MEQ in DEXTROSE 5% 1000ML 1,000 ML IV SCH (05:29)
[2016-08-20 06:10] LABS: BASO % 0.3 %; BASO ABS # 0.02 K/uL (0-0.2); EOS % 4.4 %; IG% 2.2 %; LYMPH % 28.7 %; LYMPH ABS # 1.71 K/uL (1.2-3.4); MEAN CELL VOLUME 97.2 fL (80-100); MEAN CORPUSCULAR HEMOGLOBIN 30.6 pg (25-34); MEAN CORPUSCULAR HGB CONC 31.4 g/dl (32-36); MEAN PLATELET VOLUME 9.6 fL (7.4-10.4); MONO % 8.2 %; NEUT % 56.2 %; PLATELET COUNT 114 K/uL (130-400); RED BLOOD COUNT 2.88 M/uL (4.2-5.4); WHITE BLOOD COUNT 5.96 K/uL (4.8-10.8)
[2016-08-20 06:34] LABS: ANISOCYTOSIS PRESENT; COMPLETE YES
[2016-08-20 06:37] LABS: BUN/CREATININE RATIO 14.5 (10-20); CALCIUM 7.8 mg/dl (8.5-10.1); CREATININE 2.4 mg/dl (0.60-1.20); POTASSIUM 4.3 mmol/L (3.5-5.1)
[2016-08-20 06:53] VITALS: BP 145/74; PULSE 77; TEMP 36.8; O2SAT 97
[2016-08-20] MEDS: CEROVITE ADV FORMULA TAB PO SCH (08:33)
[2016-08-20] MEDS: CHOLECALCIFEROL 1000 INTER.UNIT TAB PO SCH (08:34)
[2016-08-20] MEDS: PANTOprazole SOD 40 MG TAB PO SCH (08:34)
[2016-08-20] MEDS: RASPBERRY SYRUP 5 ML UDP PO SCH (08:34)
[2016-08-20] MEDS: CARVEDILOL 25 MG TAB PO SCH ×2 (08:34→20:26)
[2016-08-20] MEDS: HEPARIN SOD 5000 UNIT/0.5 ML CARP SQ SCH ×2 (08:40→20:14)
[2016-08-20] MEDS: VANCOMYCIN HCL 125 MG/2.5ML SOLN PO SCH (08:40)
[2016-08-20] MEDS: NYSTATIN POWDER 15GM BTL EXT SCH ×2 (08:41→20:26)
[2016-08-20] MEDS: [UNRECOGNIZED DRUG - REMARK] SCH ×3 (08:41→20:14)
--- NOTE | 2016-08-20 09:19 | Progress Note ---
Progress Note Date of Service Aug 20, 2016. Progress Note Pt not seen by myself today. Will plan for OR for tomorrow for a cysto and bilateral stent exchange with Dr. Reeves. Continue management of UTI per ID.
--- NOTE | 2016-08-20 10:51 | Infectious Disease Progress Nt ---
Progress Note Date of Service Aug 20, 2016. Subjective Pt evaluation today including: conversation w/ patient, physical exam, chart review, lab review, review of studies, review of inpatient medication list WBC count 5.96. Urine culture is showing no growth. She did have a dose of Gentamicin. Hgb was 8.8. Blood cultures showing no growth to date. Planning for stent removal tomorrow morning. All Other Systems: Reviewed and Negative Medications Current Inpatient Medications Medications (Trade) Dose Ordered Sig/Helder Route Start Time Stop Time Status Last Admin Dose Admin Acetaminophen (Tylenol Tab) 650 mg Q4H PRN PO 08/18/16 08:45 09/17/16 08:44 Heparin Sodium (Porcine) (Heparin Sq 5000 Unit/0.5ml) 5,000 unit Q12 SQ 08/18/16 13:00 09/17/16 12:59 08/20/16 08:40 5,000 UNIT Aspirin (Ecotrin Tab) 81 mg QPM PO 08/18/16 21:00 09/17/16 20:59 08/19/16 20:50 81 MG Atorvastatin Calcium (Lipitor Tab) 80 mg QPM PO 08/18/16 21:00 09/17/16 20:59 08/19/16 20:51 80 MG Carvedilol (Coreg Tab) 25 mg BID PO 08/18/16 12:30 09/17/16 12:29 08/20/16 08:34 25 MG Cholecalciferol (Vitamin D Tab) 1 inter.unit DAILY PO 08/18/16 12:30 09/17/16 12:29 08/20/16 08:34 1 INTER.UNIT Clopidogrel Bisulfate (plAVix TAB) 75 mg QPM PO 08/18/16 21:00 09/17/16 20:59 08/19/16 20:51 75 MG Lorazepam (Ativan Tab) 0.5 mg Q6H PRN PO 08/18/16 08:45 09/17/16 08:44 Multivitamins/ Minerals (Multivitamin W/ Minerals Tab) 1 tab QAM PO 08/18/16 12:30 09/17/16 12:29 08/20/16 08:33 1 TAB Nystatin (Mycostatin Powder) 1 appln BID EXT 08/18/16 12:30 09/17/16 12:29 08/20/16 08:41 1 APPLN Ondansetron HCl (Zofran Odt) 4 mg Q6H PRN PO 08/18/16 08:45 09/17/16 08:44 08/19/16 01:30 4 MG Pantoprazole Sodium (Protonix Tab) 40 mg QAM PO 08/18/16 12:30 09/17/16 12:29 08/20/16 08:34 40 MG Vancomycin HCl (Vancomycin Oral Soln) 125 mg QAM PO 08/18/16 13:00 09/01/16 12:59 08/20/16 08:40 125 MG Febuxostat (Uloric) 40 mg DAILY@1200 PO 08/18/16 13:00 09/17/16 12:59 08/19/16 08:38 40 MG Miscellaneous Information (Order Awaiting Action) 1 ea TID N/A 08/18/16 12:45 09/17/16 12:44 08/20/16 08:41 1 EA Lactobacillus Acidophilus (Floranex Tab) 1 tab QPM PO 08/18/16 21:00 09/17/16 20:59 08/19/16 20:51 1 TAB Raspberry 5 ml 5 ml QAM PO 08/18/16 13:00 09/01/16 12:59 08/20/16 08:34 5 ML Sodium Bicarbonate/ Dextrose (Sodium Bicarbonate 8.4% Inj/D5W 1000ml) 1,150 ml @ 100 mls/hr [id number] IV 08/18/16 19:00 09/17/16 18:59 08/20/16 05:29 100 MLS/HR Objective Vital Signs Date Time Temp Pulse Resp B/P Pulse Ox O2 Delivery O2 Flow Rate FiO2 08/20/16 08:00 Nasal Cannula 2.0 08/20/16 06:53 36.8 77 18 145/74 97 Nasal Cannula 3.0 08/20/16 00:33 36.6 79 18 126/68 98 3.0 08/20/16 00:00 Nasal Cannula 2.0 08/19/16 20:47 78 136/75 08/19/16 19:37 Nasal Cannula 2.0 08/19/16 16:00 Nasal Cannula 2.0 08/19/16 15:29 37.1 77 18 126/73 100 Nasal Cannula 2.0 Physical Exam General Appearance: WD/WN, no apparent distress Eyes: normal inspection, sclerae normal ENT: hearing grossly normal Neck: supple, trachea midline Respiratory/Chest: no respiratory distress, no accessory muscle use Cardiovascular: regular rate, rhythm Abdomen: normal bowel sounds, non tender, soft Extremities: normal inspection Neurologic/Psychiatric: alert, normal mood/affect Skin: normal color, warm/dry, no rash Laboratory Results Item Value Date Time Blood Culture - Preliminary Resulted 08/18/16 0730 Blood NO GROWTH TO DATE. Blood Culture - Preliminary Resulted 08/18/16 0725 Blood NO GROWTH TO DATE. Urine Culture - Final Complete 08/18/16 0720 Urine,Catheterized NO GROWTH - LESS THAN 1,000 COLONIES/ML Last 24 Hours Test 08/20/16 05:30 White Blood Count 5.96 K/uL Red Blood Count 2.88 M/uL Hemoglobin 8.8 g/dL Hematocrit 28.0 % Mean Corpuscular Volume 97.2 fL Mean Corpuscular Hemoglobin 30.6 pg Mean Corpuscular Hemoglobin Concent 31.4 g/dl Platelet Count 114 K/uL Mean Platelet Volume 9.6 fL Neutrophils (%) (Auto) 56.2 % Lymphocytes (%) (Auto) 28.7 % Monocytes (%) (Auto) 8.2 % Eosinophils (%) (Auto) 4.4 % Basophils (%) (Auto) 0.3 % Neutrophils # (Auto) 3.35 K/uL Lymphocytes # (Auto) 1.71 K/uL Monocytes # (Auto) 0.49 K/uL Eosinophils # (Auto) 0.26 K/uL Basophils # (Auto) 0.02 K/uL RDW Standard Deviation 55.4 fL RDW Coefficient of Variation 16.0 % Immature Granulocyte % (Auto) 2.2 % Immature Granulocyte # (Auto) 0.13 K/uL Anisocytosis PRESENT Sodium Level 146 mmol/L Potassium Level 4.3 mmol/L Chloride Level 106 mmol/L Carbon Dioxide Level 30 mmol/L Anion Gap 10.0 mmol/L Blood Urea Nitrogen 35 mg/dl Creatinine 2.40 mg/dl Est Creatinine Clear Calc Drug Dose 17.0 ml/min Estimated GFR () 20.9 Estimated GFR (Non- 18.1 BUN/Creatinine Ratio 14.5 Random Glucose 97 mg/dl Calcium Level 7.8 mg/dl Assessment and Plan Patient with recurrent UTI's, encephalopathy, and possible reaction to Ertapenem with indwelling ureteral stents with questionable chronic infection. Patient anticipating removal of stents tomorrow. I spoke with pharmacy about this patient and feel that she should have antibiotic coverage prior to and during surgical procedure due to concerns for infection. Due to prior sensitivities and questionable reaction to Ertapenem, will start on IV Imipenem and monitor for reaction. Upon discussion with pharmacy, this seems more reasonable that continuing Gentamicin for now with kidney function. If she has a reaction, will change to Gent. We will follow. Plan: 1. Start IV Imipenem case reviewed and agree with above assessment.
--- NOTE | 2016-08-20 10:54 | Anesthesiology Progress Note ---
Anesthesia Progress Note Date of Service Aug 20, 2016. Progress Notes 81 yo Female admitted for altered mental status. Pt AAOx3 resting comfortably. Hx of CAD-DE, AICD/Pacer 2009 following DE, CKD, DM-II, Anemia, Obesity, Supplemental O2 2L, recurrent UTIs. I discussed the plan for anesthesia with the patient and caregiver at bedside. The was called and he agreed with anesthesia plan. Informed consent was obtained at this time. No further questions or concerns voiced.
[2016-08-20] MEDS ORDERED: IMIPENEM/CILASTATIN CONSULT ACTIVE PRN (11:00)
[2016-08-20] MEDS: ONDANSETRON 4MG OD TAB PO PRN (12:16)
[2016-08-20] MEDS: IMIPENEM/CILASTATIN IV 200 MG in DEXTROSE 5% 100ML 100 ML IV SCH ×3 (12:17→23:30)
[2016-08-20] MEDS: FEBUXOSTAT 40 MG TAB PO SCH (12:17)
--- NOTE | 2016-08-20 12:22 | Hospitalist Progress Note ---
Hospitalist Progress Note Date of Service Aug 20, 2016. Subjective Pt evaluation today including: conversation w/ patient, physical exam, chart review, lab review, review of inpatient medication list Voiding: no voiding problems, no incontinence Patient states she is feeling well. Denies any complaints. She is eating and drinking OK. Plan for cysto and bilateral stent exchange tomorrow. Patient denies any fever, chills, sweats, lightheadedness, dizziness, vision changes, CP , palpitations, edema, SOB, wheezing, cough, abdominal pain, nausea, vomiting, diarrhea, urinary symptoms, melena, numbness/tingling, weakness, muscle/joint pain, anxiety/depression, active bleeding, or new skin discoloration/changes. Medications Current Inpatient Medications Medications (Trade) Dose Ordered Sig/Helder Route Start Time Stop Time Status Last Admin Dose Admin Acetaminophen (Tylenol Tab) 650 mg Q4H PRN PO 08/18/16 08:45 09/17/16 08:44 Heparin Sodium (Porcine) (Heparin Sq 5000 Unit/0.5ml) 5,000 unit Q12 SQ 08/18/16 13:00 09/17/16 12:59 08/20/16 08:40 5,000 UNIT Aspirin (Ecotrin Tab) 81 mg QPM PO 08/18/16 21:00 09/17/16 20:59 08/19/16 20:50 81 MG Atorvastatin Calcium (Lipitor Tab) 80 mg QPM PO 08/18/16 21:00 09/17/16 20:59 08/19/16 20:51 80 MG Carvedilol (Coreg Tab) 25 mg BID PO 08/18/16 12:30 09/17/16 12:29 08/20/16 08:34 25 MG Cholecalciferol (Vitamin D Tab) 1 inter.unit DAILY PO 08/18/16 12:30 09/17/16 12:29 08/20/16 08:34 1 INTER.UNIT Clopidogrel Bisulfate (plAVix TAB) 75 mg QPM PO 08/18/16 21:00 09/17/16 20:59 08/19/16 20:51 75 MG Lorazepam (Ativan Tab) 0.5 mg Q6H PRN PO 08/18/16 08:45 09/17/16 08:44 Multivitamins/ Minerals (Multivitamin W/ Minerals Tab) 1 tab QAM PO 08/18/16 12:30 09/17/16 12:29 08/20/16 08:33 1 TAB Nystatin (Mycostatin Powder) 1 appln BID EXT 08/18/16 12:30 09/17/16 12:29 08/20/16 08:41 1 APPLN Ondansetron HCl (Zofran Odt) 4 mg Q6H PRN PO 08/18/16 08:45 09/17/16 08:44 08/19/16 01:30 4 MG Pantoprazole Sodium (Protonix Tab) 40 mg QAM PO 08/18/16 12:30 09/17/16 12:29 08/20/16 08:34 40 MG Vancomycin HCl (Vancomycin Oral Soln) 125 mg QAM PO 08/18/16 13:00 09/01/16 12:59 08/20/16 08:40 125 MG Febuxostat (Uloric) 40 mg DAILY@1200 PO 08/18/16 13:00 09/17/16 12:59 08/19/16 08:38 40 MG Miscellaneous Information (Order Awaiting Action) 1 ea TID N/A 08/18/16 12:45 09/17/16 12:44 08/20/16 08:41 1 EA Lactobacillus Acidophilus (Floranex Tab) 1 tab QPM PO 08/18/16 21:00 09/17/16 20:59 08/19/16 20:51 1 TAB Raspberry 5 ml 5 ml QAM PO 08/18/16 13:00 09/01/16 12:59 08/20/16 08:34 5 ML Sodium Bicarbonate/ Dextrose (Sodium Bicarbonate 8.4% Inj/D5W 1000ml) 1,150 ml @ 100 mls/hr [id number] IV 08/18/16 19:00 09/17/16 18:59 08/20/16 05:29 100 MLS/HR Imipenem/ Cilastatin Sodium 1 ea 1 ea UD PRN N/A 08/20/16 11:00 09/19/16 10:59 Imipenem/ Cilastatin Sodium/ Dextrose (Primaxin Iv/D5 100ml) 104 ml @ 104 mls/hr Q6H IV 08/20/16 12:00 08/23/16 23:59 Objective Vital Signs Date Time Temp Pulse Resp B/P Pulse Ox O2 Delivery O2 Flow Rate FiO2 08/20/16 08:00 Nasal Cannula 2.0 08/20/16 06:53 36.8 77 18 145/74 97 Nasal Cannula 3.0 08/20/16 00:33 36.6 79 18 126/68 98 3.0 08/20/16 00:00 Nasal Cannula 2.0 08/19/16 20:47 78 136/75 08/19/16 19:37 Nasal Cannula 2.0 08/19/16 16:00 Nasal Cannula 2.0 08/19/16 15:29 37.1 77 18 126/73 100 Nasal Cannula 2.0 Physical Exam General Appearance: no apparent distress Eyes: normal inspection, PERRL ENT: hearing grossly normal Neck: supple Respiratory/Chest: lungs clear, no respiratory distress, no accessory muscle use Cardiovascular: regular rate, rhythm Abdomen: normal bowel sounds, non tender, soft Extremities: no pedal edema, no calf tenderness Neurologic/Psychiatric: alert, normal mood/affect Skin: normal color, warm/dry, no rash Laboratory Results Last 24 Hours Test 08/20/16 05:30 White Blood Count 5.96 K/uL Red Blood Count 2.88 M/uL Hemoglobin 8.8 g/dL Hematocrit 28.0 % Mean Corpuscular Volume 97.2 fL Mean Corpuscular Hemoglobin 30.6 pg Mean Corpuscular Hemoglobin Concent 31.4 g/dl Platelet Count 114 K/uL Mean Platelet Volume 9.6 fL Neutrophils (%) (Auto) 56.2 % Lymphocytes (%) (Auto) 28.7 % Monocytes (%) (Auto) 8.2 % Eosinophils (%) (Auto) 4.4 % Basophils (%) (Auto) 0.3 % Neutrophils # (Auto) 3.35 K/uL Lymphocytes # (Auto) 1.71 K/uL Monocytes # (Auto) 0.49 K/uL Eosinophils # (Auto) 0.26 K/uL Basophils # (Auto) 0.02 K/uL RDW Standard Deviation 55.4 fL RDW Coefficient of Variation 16.0 % Immature Granulocyte % (Auto) 2.2 % Immature Granulocyte # (Auto) 0.13 K/uL Anisocytosis PRESENT Sodium Level 146 mmol/L Potassium Level 4.3 mmol/L Chloride Level 106 mmol/L Carbon Dioxide Level 30 mmol/L Anion Gap 10.0 mmol/L Blood Urea Nitrogen 35 mg/dl Creatinine 2.40 mg/dl Est Creatinine Clear Calc Drug Dose 17.0 ml/min Estimated GFR () 20.9 Estimated GFR (Non- 18.1 BUN/Creatinine Ratio 14.5 Random Glucose 97 mg/dl Calcium Level 7.8 mg/dl Assessment and Plan This is an 81 yo F with PMHx CKD stage III, multiple occurrences of BONNIE, CHF, HTN, s/p NV, DM II, UTI with MDRO including Klebsiella. PT presents with worsening weakness, confusion and diarrhea over the past 2 days in the setting of klebsiella UTI currently being treated with ertapenem 1g daily x 12 days, scheduled for at least 2 weeks. 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 -Follows with Dr. Griffin-- > Start Imipenem on 08/20, due to ? Ertapenem reaction--> if has reaction, change to Gentamicin - Urology consulted- appreciate recommendations -- Plan for OR on 08/21 for cysto and bilateral stent exchange by Dr. Reeves CKD stage IV, baseline approx 3.1-3.2: - Stable. Follow PRP - Nephrotoxic medications avoided and renally dosed medications administered Anemia of chronic disease: - Hemoglobin 8.8, continue to follow CBC Thrombocytopenia, ?secondary to heparin: - Follow CBC. If continues to drop, will d/c heparin SQ Non anion gap met acidosis with HCO3 15 and and hyperkalemia 5.5, CKD stage IV , resolved: - Continue D5W + 150 HCO3 - Follow PRP and mag History of C. Difficile Infection: - Vancomycin 125 mg daily was continued for coverage of c diff--> no bowel movements since admission - C. difficile pending Chronic Systolic Congestive Heart Failure without Exacerbation: - Echo (2016) - EF 35-40% completed during last admission - Daily weights and I&Os monitored without evidence of failure during admission - Patient maintained on Carvedilol 25 mg BID - Continue ANG for now as no BONNIE although pt has significant hx of this. DVT PPx: Heparin sq BID, CODI/SCDs CODE STATUS: FULL CODE Disposition: Patient from home, acts as primary caregiver and has refused physical therapy/occupational therapy in the past--> PT recommending SNF placement
[2016-08-20 14:07] VITALS: BP 119/72; PULSE 80; TEMP 37.4; O2SAT 99
[2016-08-20] MEDS ORDERED: NURSING VERBAL MED ORDER ONE (19:15)
[2016-08-20 20:24] VITALS: BP 145/78; PULSE 80
[2016-08-20] MEDS: CLOPIDOGREL BISULFATE 75 MG TAB PO SCH (20:26)
[2016-08-20] MEDS: ATORVASTATIN 40 MG TAB PO SCH (20:26)
[2016-08-20] MEDS: ASPIRIN 81 MG ECTAB PO SCH (20:26)
[2016-08-20] MEDS: LACTOBACILLUS ACIDOPHILUS (FLORANEX) TAB PO SCH (20:27)
[2016-08-21] VITALS (10 sets, daily range): BP systolic 115–144; BP diastolic 57–78; PULSE 79–91; TEMP 36.8–37.2; O2SAT 92–99
[2016-08-21] MEDS: IMIPENEM/CILASTATIN IV 200 MG in DEXTROSE 5% 100ML 100 ML IV SCH ×4 (05:48→23:50)
[2016-08-21 06:09] LABS: BASO % 0.3 %; BASO ABS # 0.02 K/uL (0-0.2); COMPLETE YES; EOS % 5.1 %; HEMATOCRIT 29.4 % (37-47); IG% 1.6 %; LYMPH % 21.8 %; LYMPH ABS # 1.46 K/uL (1.2-3.4); MEAN CORPUSCULAR HGB CONC 31.3 g/dl (32-36); MEAN PLATELET VOLUME 9.8 fL (7.4-10.4); MONO % 8.2 %; PLATELET COUNT 112 K/uL (130-400); RED BLOOD COUNT 2.97 M/uL (4.2-5.4); WHITE BLOOD COUNT 6.69 K/uL (4.8-10.8)
[2016-08-21 06:43] LABS: BUN/CREATININE RATIO 12.4 (10-20); CALCIUM 7.5 mg/dl (8.5-10.1); CREATININE 2.6 mg/dl (0.60-1.20); MAGNESIUM 1.6 mg/dl (1.8-2.4); POTASSIUM 4.2 mmol/L (3.5-5.1)
[2016-08-21] MEDS ORDERED: MAGNESIUM SULFATE 1GM / D5W 1 GM in PREMIXED IN D5W 100 ML IV ONE (07:40)
[2016-08-21] MEDS: CHOLECALCIFEROL 1000 INTER.UNIT TAB PO SCH (08:20)
[2016-08-21] MEDS: HEPARIN SOD 5000 UNIT/0.5 ML CARP SQ SCH ×2 (08:21→20:07)
[2016-08-21] MEDS: PANTOprazole SOD 40 MG TAB PO SCH (08:21)
[2016-08-21] MEDS: NYSTATIN POWDER 15GM BTL EXT SCH ×2 (08:22→20:10)
[2016-08-21] MEDS: [UNRECOGNIZED DRUG - REMARK] SCH ×3 (08:22→20:08)
[2016-08-21] MEDS: CARVEDILOL 25 MG TAB PO SCH ×2 (08:23→20:11)
[2016-08-21] MEDS: RASPBERRY SYRUP 5 ML UDP PO SCH (08:24)
[2016-08-21] MEDS: CEROVITE ADV FORMULA TAB PO SCH (08:24)
[2016-08-21] MEDS: VANCOMYCIN HCL 125 MG/2.5ML SOLN PO SCH (08:28)
--- NOTE | 2016-08-21 08:41 | Progress Note ---
Subjective Date of Service: Aug 21, 2016. Subjective Pt evaluation today including: conversation w/ patient, chart review, lab review Voiding: no voiding problems 81 yo female with recurrent UTI and chronic bilateral stents. Pt pending OR today for stent exchange. Her reports she is improved today. He is very angry she will need to wait until the end of the day for her stent exchange. UC&S noted to be negative. Cr is 2.6 today. Problem List Medical Problems: (1) Acute on chronic kidney failure Status: Acute (2) Acute renal failure Status: Acute (3) Altered mental status Status: Acute (4) Altered mental status Status: Acute (5) ARF (acute renal failure) Status: Acute (6) CRD (chronic renal disease) Status: Acute (7) Dehydration Status: Acute (8) Dehydration Status: Acute (9) Fever Status: Acute (10) Hyperkalemia Status: Acute (11) Hyperkalemia Status: Acute (12) Hypomagnesemia Status: Acute (13) PICC (peripherally inserted central catheter) in place Status: Acute (14) Pneumonia Status: Acute (15) Renal failure Status: Acute (16) Renal insufficiency Status: Acute (17) Renal insufficiency Status: Acute (18) Sepsis Status: Acute (19) Sepsis Status: Acute (20) Uremia Status: Acute (21) UTI (urinary tract infection) Status: Acute (22) UTI (urinary tract infection) Status: Acute (23) UTI (urinary tract infection) Status: Acute (24) Weakness Status: Acute (25) Weakness Status: Acute (26) Weakness Status: Acute (27) Weakness Status: Acute (28) Weakness Status: Acute Review of Systems Constitutional: No chills, No fever Respiratory: No shortness of breath Cardiac: No chest pain Abdomen: No nausea, No pain, No vomiting Female : No dysuria, No hematuria Heme: No abnormal bleeding/bruising Objective Vital Signs Date Time Temp Pulse Resp B/P Pulse Ox O2 Delivery O2 Flow Rate FiO2 08/21/16 07:21 37.0 79 18 139/69 98 Nasal Cannula 2.0 08/21/16 00:01 37.0 79 16 133/72 95 3.0 08/21/16 00:00 Nasal Cannula 2.0 08/20/16 20:24 80 145/78 08/20/16 20:00 Nasal Cannula 2.0 08/20/16 16:00 Nasal Cannula 2.0 08/20/16 14:07 37.4 80 18 119/72 99 Nasal Cannula 3.0 Physical Exam General Appearance: no apparent distress Eyes: normal inspection ENT: hearing grossly normal Neck: no JVD Respiratory/Chest: no respiratory distress, no accessory muscle use Cardiovascular: no JVD Extremities: normal inspection Neurologic/Psychiatric: alert, normal mood/affect, oriented x 3 Skin: normal color Laboratory Results Last 24 Hours Test 08/21/16 05:10 White Blood Count 6.69 K/uL Red Blood Count 2.97 M/uL Hemoglobin 9.2 g/dL Hematocrit 29.4 % Mean Corpuscular Volume 99.0 fL Mean Corpuscular Hemoglobin 31.0 pg Mean Corpuscular Hemoglobin Concent 31.3 g/dl Platelet Count 112 K/uL Mean Platelet Volume 9.8 fL Neutrophils (%) (Auto) 63.0 % Lymphocytes (%) (Auto) 21.8 % Monocytes (%) (Auto) 8.2 % Eosinophils (%) (Auto) 5.1 % Basophils (%) (Auto) 0.3 % Neutrophils # (Auto) 4.21 K/uL Lymphocytes # (Auto) 1.46 K/uL Monocytes # (Auto) 0.55 K/uL Eosinophils # (Auto) 0.34 K/uL Basophils # (Auto) 0.02 K/uL RDW Standard Deviation 58.8 fL RDW Coefficient of Variation 16.3 % Immature Granulocyte % (Auto) 1.6 % Immature Granulocyte # (Auto) 0.11 K/uL Sodium Level 145 mmol/L Potassium Level 4.2 mmol/L Chloride Level 104 mmol/L Carbon Dioxide Level 34 mmol/L Anion Gap 7.0 mmol/L Blood Urea Nitrogen 32 mg/dl Creatinine 2.60 mg/dl Est Creatinine Clear Calc Drug Dose 15.7 ml/min Estimated GFR () 19.0 Estimated GFR (Non- 16.4 BUN/Creatinine Ratio 12.4 Random Glucose 101 mg/dl Calcium Level 7.5 mg/dl Magnesium Level 1.6 mg/dl Assessment and Plan A/P: Recurrent UTI, chronic stents for ARF AFVSS. Will plan for the OR today for bilateral ureteral stent exchange. The pt's became very angry and abusive with me upon finding out that she would need to wait until later this afternoon for stent exchange d/t Dr. Reeves's regularly scheduled cases today. At this point I left the room, and made Dr. Reeves aware of her 's disappointment in the logistics of the OR schedule. Continued [facility] stay due to: ambulation difficulties, multiple IV medications needed
--- NOTE | 2016-08-21 10:26 | Infectious Disease Progress Nt ---
Progress Note Date of Service Aug 21, 2016. Subjective Pt evaluation today including: conversation w/ patient, conversation w/ family (), physical exam, chart review, lab review, review of studies, review of inpatient medication list Patient is feeling improved this morning. Anticipating stent removal this afternoon. Patient's has multiple complaints today including the late surgery, small and messy room, and overall care "this stay". He states that she has however improved, he feels that no one has "compassion" during this hospital stay in regards to his 's care. WBC count today was 6.69. Hgb 9.2. Creatinine stable at 2.60. Urine and blood cultures continue to show no growth. All Other Systems: Reviewed and Negative Medications Current Inpatient Medications Medications (Trade) Dose Ordered Sig/Helder Route Start Time Stop Time Status Last Admin Dose Admin Acetaminophen (Tylenol Tab) 650 mg Q4H PRN PO 08/18/16 08:45 09/17/16 08:44 Heparin Sodium (Porcine) (Heparin Sq 5000 Unit/0.5ml) 5,000 unit Q12 SQ 08/18/16 13:00 09/17/16 12:59 08/20/16 20:14 5,000 UNIT Aspirin (Ecotrin Tab) 81 mg QPM PO 08/18/16 21:00 09/17/16 20:59 08/20/16 20:26 81 MG Atorvastatin Calcium (Lipitor Tab) 80 mg QPM PO 08/18/16 21:00 09/17/16 20:59 08/20/16 20:26 80 MG Carvedilol (Coreg Tab) 25 mg BID PO 08/18/16 12:30 09/17/16 12:29 08/21/16 08:23 25 MG Cholecalciferol (Vitamin D Tab) 1 inter.unit DAILY PO 08/18/16 12:30 09/17/16 12:29 08/21/16 08:20 1 INTER.UNIT Clopidogrel Bisulfate (plAVix TAB) 75 mg QPM PO 08/18/16 21:00 09/17/16 20:59 08/20/16 20:26 75 MG Lorazepam (Ativan Tab) 0.5 mg Q6H PRN PO 08/18/16 08:45 09/17/16 08:44 Multivitamins/ Minerals (Multivitamin W/ Minerals Tab) 1 tab QAM PO 08/18/16 12:30 09/17/16 12:29 08/21/16 08:24 1 TAB Nystatin (Mycostatin Powder) 1 appln BID EXT 08/18/16 12:30 09/17/16 12:29 08/21/16 08:22 1 APPLN Ondansetron HCl (Zofran Odt) 4 mg Q6H PRN PO 08/18/16 08:45 09/17/16 08:44 08/20/16 12:16 4 MG Pantoprazole Sodium (Protonix Tab) 40 mg QAM PO 08/18/16 12:30 09/17/16 12:29 08/21/16 08:21 40 MG Vancomycin HCl (Vancomycin Oral Soln) 125 mg QAM PO 08/18/16 13:00 09/01/16 12:59 08/21/16 08:28 125 MG Febuxostat (Uloric) 40 mg DAILY@1200 PO 08/18/16 13:00 09/17/16 12:59 08/20/16 12:17 40 MG Miscellaneous Information (Order Awaiting Action) 1 ea TID N/A 08/18/16 12:45 09/17/16 12:44 08/21/16 08:22 1 EA Lactobacillus Acidophilus (Floranex Tab) 1 tab QPM PO 08/18/16 21:00 09/17/16 20:59 08/20/16 20:27 1 TAB Raspberry (Raspberry Syrup 5ml Cup) 5 ml QAM PO 08/18/16 13:00 09/01/16 12:59 08/21/16 08:24 5 ML Imipenem/ Cilastatin Sodium 1 ea 1 ea UD PRN N/A 08/20/16 11:00 09/19/16 10:59 Imipenem/ Cilastatin Sodium/ Dextrose (Primaxin Iv/D5 100ml) 104 ml @ 104 mls/hr Q6H IV 08/20/16 12:00 08/23/16 23:59 08/21/16 05:48 104 MLS/HR Heparin Sodium (Porcine) (Heparin 10 Unit/ ml 5 ml Flush) 5 ml PRN PRN FLUSH 08/20/16 19:30 09/19/16 19:29 08/21/16 08:55 5 ML Objective Vital Signs Date Time Temp Pulse Resp B/P Pulse Ox O2 Delivery O2 Flow Rate FiO2 08/21/16 08:00 Nasal Cannula 2.0 08/21/16 07:21 37.0 79 18 139/69 98 Nasal Cannula 2.0 08/21/16 00:01 37.0 79 16 133/72 95 3.0 08/21/16 00:00 Nasal Cannula 2.0 08/20/16 20:24 80 145/78 08/20/16 20:00 Nasal Cannula 2.0 08/20/16 16:00 Nasal Cannula 2.0 08/20/16 14:07 37.4 80 18 119/72 99 Nasal Cannula 3.0 Physical Exam General Appearance: WD/WN, no apparent distress Eyes: normal inspection, sclerae normal ENT: hearing grossly normal Neck: supple, trachea midline Respiratory/Chest: no respiratory distress, no accessory muscle use Cardiovascular: regular rate, rhythm Neurologic/Psychiatric: alert, normal mood/affect Skin: normal color Laboratory Results Item Value Date Time Blood Culture - Preliminary Resulted 08/18/16 0730 Blood NO GROWTH TO DATE. Blood Culture - Preliminary Resulted 08/18/16 0725 Blood NO GROWTH TO DATE. Last 24 Hours Test 08/21/16 05:10 White Blood Count 6.69 K/uL Red Blood Count 2.97 M/uL Hemoglobin 9.2 g/dL Hematocrit 29.4 % Mean Corpuscular Volume 99.0 fL Mean Corpuscular Hemoglobin 31.0 pg Mean Corpuscular Hemoglobin Concent 31.3 g/dl Platelet Count 112 K/uL Mean Platelet Volume 9.8 fL Neutrophils (%) (Auto) 63.0 % Lymphocytes (%) (Auto) 21.8 % Monocytes (%) (Auto) 8.2 % Eosinophils (%) (Auto) 5.1 % Basophils (%) (Auto) 0.3 % Neutrophils # (Auto) 4.21 K/uL Lymphocytes # (Auto) 1.46 K/uL Monocytes # (Auto) 0.55 K/uL Eosinophils # (Auto) 0.34 K/uL Basophils # (Auto) 0.02 K/uL RDW Standard Deviation 58.8 fL RDW Coefficient of Variation 16.3 % Immature Granulocyte % (Auto) 1.6 % Immature Granulocyte # (Auto) 0.11 K/uL Sodium Level 145 mmol/L Potassium Level 4.2 mmol/L Chloride Level 104 mmol/L Carbon Dioxide Level 34 mmol/L Anion Gap 7.0 mmol/L Blood Urea Nitrogen 32 mg/dl Creatinine 2.60 mg/dl Est Creatinine Clear Calc Drug Dose 15.7 ml/min Estimated GFR () 19.0 Estimated GFR (Non- 16.4 BUN/Creatinine Ratio 12.4 Random Glucose 101 mg/dl Calcium Level 7.5 mg/dl Magnesium Level 1.6 mg/dl Assessment and Plan Patient with recurrent UTI's, encephalopathy, and possible reaction to Ertapenem with indwelling ureteral stents with questionable chronic infection. Anticipating stent removal this afternoon. Will continue IV Imipenem throughout surgery and into tomorrow at least. Will determine further antibiotic therapy based on OR findings. We will continue to follow. Case reviewed and agree with above assessment.
--- NOTE | 2016-08-21 10:58 | Hospitalist Progress Note ---
Hospitalist Progress Note Date of Service Aug 21, 2016. Subjective Pt evaluation today including: conversation w/ patient, conversation w/ family , physical exam, chart review, lab review, review of inpatient medication list Patient states she is feeling well. She just wants "to get her procedure and go home." Patient denies any fever, chills, sweats, lightheadedness, dizziness, vision changes, CP, palpitations, edema, SOB, wheezing, cough, abdominal pain, nausea, vomiting, diarrhea, urinary symptoms, melena, numbness/tingling, weakness, muscle/joint pain, anxiety/depression, active bleeding, or new skin discoloration/changes. is very upset with the fact that his 's procedure will not be until this afternoon. believes patient is too sick to wait that long. He is also disappointment with the "messy rooms." Spoke with patient and about recommendations for SNF placement. They both refused and state patient will be going home. Medications Current Inpatient Medications Medications (Trade) Dose Ordered Sig/Helder Route Start Time Stop Time Status Last Admin Dose Admin Acetaminophen (Tylenol Tab) 650 mg Q4H PRN PO 08/18/16 08:45 09/17/16 08:44 Heparin Sodium (Porcine) (Heparin Sq 5000 Unit/0.5ml) 5,000 unit Q12 SQ 08/18/16 13:00 09/17/16 12:59 08/20/16 20:14 5,000 UNIT Aspirin (Ecotrin Tab) 81 mg QPM PO 08/18/16 21:00 09/17/16 20:59 08/20/16 20:26 81 MG Atorvastatin Calcium (Lipitor Tab) 80 mg QPM PO 08/18/16 21:00 09/17/16 20:59 08/20/16 20:26 80 MG Carvedilol (Coreg Tab) 25 mg BID PO 08/18/16 12:30 09/17/16 12:29 08/21/16 08:23 25 MG Cholecalciferol (Vitamin D Tab) 1 inter.unit DAILY PO 08/18/16 12:30 09/17/16 12:29 08/21/16 08:20 1 INTER.UNIT Clopidogrel Bisulfate (plAVix TAB) 75 mg QPM PO 08/18/16 21:00 09/17/16 20:59 08/20/16 20:26 75 MG Lorazepam (Ativan Tab) 0.5 mg Q6H PRN PO 08/18/16 08:45 09/17/16 08:44 Multivitamins/ Minerals (Multivitamin W/ Minerals Tab) 1 tab QAM PO 08/18/16 12:30 09/17/16 12:29 08/21/16 08:24 1 TAB Nystatin (Mycostatin Powder) 1 appln BID EXT 08/18/16 12:30 09/17/16 12:29 08/21/16 08:22 1 APPLN Ondansetron HCl (Zofran Odt) 4 mg Q6H PRN PO 08/18/16 08:45 09/17/16 08:44 08/20/16 12:16 4 MG Pantoprazole Sodium (Protonix Tab) 40 mg QAM PO 08/18/16 12:30 09/17/16 12:29 08/21/16 08:21 40 MG Vancomycin HCl (Vancomycin Oral Soln) 125 mg QAM PO 08/18/16 13:00 09/01/16 12:59 08/21/16 08:28 125 MG Febuxostat (Uloric) 40 mg DAILY@1200 PO 08/18/16 13:00 09/17/16 12:59 08/20/16 12:17 40 MG Miscellaneous Information (Order Awaiting Action) 1 ea TID N/A 08/18/16 12:45 09/17/16 12:44 08/21/16 08:22 1 EA Lactobacillus Acidophilus (Floranex Tab) 1 tab QPM PO 08/18/16 21:00 09/17/16 20:59 08/20/16 20:27 1 TAB Raspberry (Raspberry Syrup 5ml Cup) 5 ml QAM PO 08/18/16 13:00 09/01/16 12:59 08/21/16 08:24 5 ML Imipenem/ Cilastatin Sodium 1 ea 1 ea UD PRN N/A 08/20/16 11:00 09/19/16 10:59 Imipenem/ Cilastatin Sodium/ Dextrose (Primaxin Iv/D5 100ml) 104 ml @ 104 mls/hr Q6H IV 08/20/16 12:00 08/23/16 23:59 08/21/16 05:48 104 MLS/HR Heparin Sodium (Porcine) (Heparin 10 Unit/ ml 5 ml Flush) 5 ml PRN PRN FLUSH 08/20/16 19:30 09/19/16 19:29 08/21/16 08:55 5 ML Objective Vital Signs Date Time Temp Pulse Resp B/P Pulse Ox O2 Delivery O2 Flow Rate FiO2 08/21/16 08:00 Nasal Cannula 2.0 08/21/16 07:21 37.0 79 18 139/69 98 Nasal Cannula 2.0 08/21/16 00:01 37.0 79 16 133/72 95 3.0 08/21/16 00:00 Nasal Cannula 2.0 08/20/16 20:24 80 145/78 08/20/16 20:00 Nasal Cannula 2.0 08/20/16 16:00 Nasal Cannula 2.0 08/20/16 14:07 37.4 80 18 119/72 99 Nasal Cannula 3.0 Physical Exam General Appearance: no apparent distress Eyes: normal inspection, PERRL ENT: hearing grossly normal Neck: supple Respiratory/Chest: lungs clear, no respiratory distress, no accessory muscle use Cardiovascular: regular rate, rhythm Abdomen: normal bowel sounds, non tender, soft Extremities: no pedal edema, no calf tenderness Neurologic/Psychiatric: alert, normal mood/affect, oriented x 3 Skin: normal color, warm/dry, no rash Laboratory Results Last 24 Hours Test 08/21/16 05:10 White Blood Count 6.69 K/uL Red Blood Count 2.97 M/uL Hemoglobin 9.2 g/dL Hematocrit 29.4 % Mean Corpuscular Volume 99.0 fL Mean Corpuscular Hemoglobin 31.0 pg Mean Corpuscular Hemoglobin Concent 31.3 g/dl Platelet Count 112 K/uL Mean Platelet Volume 9.8 fL Neutrophils (%) (Auto) 63.0 % Lymphocytes (%) (Auto) 21.8 % Monocytes (%) (Auto) 8.2 % Eosinophils (%) (Auto) 5.1 % Basophils (%) (Auto) 0.3 % Neutrophils # (Auto) 4.21 K/uL Lymphocytes # (Auto) 1.46 K/uL Monocytes # (Auto) 0.55 K/uL Eosinophils # (Auto) 0.34 K/uL Basophils # (Auto) 0.02 K/uL RDW Standard Deviation 58.8 fL RDW Coefficient of Variation 16.3 % Immature Granulocyte % (Auto) 1.6 % Immature Granulocyte # (Auto) 0.11 K/uL Sodium Level 145 mmol/L Potassium Level 4.2 mmol/L Chloride Level 104 mmol/L Carbon Dioxide Level 34 mmol/L Anion Gap 7.0 mmol/L Blood Urea Nitrogen 32 mg/dl Creatinine 2.60 mg/dl Est Creatinine Clear Calc Drug Dose 15.7 ml/min Estimated GFR () 19.0 Estimated GFR (Non- 16.4 BUN/Creatinine Ratio 12.4 Random Glucose 101 mg/dl Calcium Level 7.5 mg/dl Magnesium Level 1.6 mg/dl Assessment and Plan This is an 81 yo F with PMHx CKD stage III, multiple occurrences of BONNIE, CHF, HTN, s/p [place], DM II, UTI with MDRO including Klebsiella. PT presents with worsening weakness, confusion and diarrhea over the past 2 days in the setting of klebsiella UTI currently being treated with ertapenem 1g daily x 12 days, scheduled for at least 2 weeks. 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 -Follows with Dr. Griffin-- > Start Imipenem on 08/20, due to ? Ertapenem reaction--> if has reaction, change to Gentamicin - Urology consulted- appreciate recommendations -- Plan for OR on 08/21 for cysto and bilateral stent exchange by Dr. Reeves CKD stage IV, baseline approx 3.1-3.2: - Stable. Follow PRP - Nephrotoxic medications avoided and renally dosed medications administered Anemia of chronic disease: - Hemoglobin stable, continue to follow CBC Thrombocytopenia, ?secondary to heparin: - Follow CBC. If continues to drop, will d/c heparin SQ Non anion gap met acidosis with HCO3 15 and and hyperkalemia 5.5, CKD stage IV , resolved: - Treated with D5W + 150 HCO3 - Follow PRP Hypomagnesemia: - Replete PRN - Follow mag level History of C. Difficile Infection: - Vancomycin 125 mg daily was continued for coverage of c.diff - C. difficile negative Chronic Systolic Congestive Heart Failure without Exacerbation: - Echo (2016) - EF 35-40% completed during last admission - Daily weights and I&Os monitored without evidence of failure during admission - Patient maintained on Carvedilol 25 mg BID - Continue ANG for now as no BONNIE although pt has significant hx of this. DVT PPx: Heparin sq BID, CODI/SCDs CODE STATUS: FULL CODE Disposition: Patient from home. PT recommending SNF placement-- patient and refuse placement.
[2016-08-21] MEDS: FEBUXOSTAT 40 MG TAB PO SCH (13:10)
[2016-08-21] MEDS ORDERED: FENTANYL CITRATE INJ 50 MCG/1 ML 2 ML VIAL ONE (15:03)
[2016-08-21] MEDS ORDERED: PROPOFOL IV EMULSION 10 MG/ML 20 ML VIAL IV ONE (15:53)
[2016-08-21] MEDS ORDERED: LIDOCAINE HCL 2% 2 ML VIAL (20MG/ML) ONE (15:53)
--- NOTE | 2016-08-21 16:14 | [facility] Post Operative Brief Note ---
Immediate Operative Summary Operative Date Aug 21, 2016. Pre-Operative Diagnosis Bilateral Hydronephrosis Post-Operative Diagnosis Bilateral Hydronephrosis Procedure(s) Performed Cystoscopy, Bilateral Ureteral Stent Exchanges ([id number]) Surgeon Dr. Reeves It Business Analyst Surgeon(s) None Estimated Blood Loss 0ml Findings Pus in the bladder. Minimal to no encrustation of the stents. Specimens None per surgeon Drains [id number] stents b/l Anesthesia gen Complication(s) None Disposition Recovery Room / PACU (stable)
[2016-08-21] MEDS ORDERED: ATROPINE SULFATE 0.1 MG/ML 5ML SYR IV PRN (16:30)
[2016-08-21] MEDS ORDERED: FENTANYL CITRATE INJ 50 MCG/1 ML 2 ML VIAL IV PRN (16:30)
[2016-08-21] MEDS ORDERED: EpHEDrine SULFATE INJ 50 MG/ML AMP IV PRN (16:30)
[2016-08-21] MEDS ORDERED: ONDANSETRON INJ 2 MG/ML 2 ML VIAL IV PRN (16:30)
--- NOTE | 2016-08-21 16:43 | Anesthesiology Progress Note ---
Anesthesia Post Op Note Date & Time Aug 21, 2016 at 16:43 Vital Signs Pain Intensity: 0 Vital Signs Past 12 Hours Date Time Temp Pulse Resp B/P Pulse Ox O2 Delivery O2 Flow Rate FiO2 08/21/16 16:35 36.7 78 16 139/65 99 Nasal Cannula 2 08/21/16 16:25 79 17 143/59 100 Mask 10 08/21/16 16:16 36.1 79 16 117/61 100 Mask 10 08/21/16 08:00 Nasal Cannula 2.0 08/21/16 07:21 37.0 79 18 139/69 98 Nasal Cannula 2.0 08/21/16 05:09 37.1 81 18 144/78 98 Nasal Cannula 2.0 Notes Mental Status: alert / awake / arousable, participated in evaluation Pt Amnestic to Procedure: Yes Nausea / Vomiting: adequately controlled Pain: adequately controlled Airway Patency, RR, SpO2: stable & adequate BP & HR: stable & adequate Hydration State: stable & adequate Anesthetic Complications: no major complications apparent
--- NOTE | 2016-08-21 17:30 | OPERATIVE REPORT ---
DATE OF OPERATION: 08/21/2016 PREOPERATIVE DIAGNOSIS: Bilateral hydronephrosis. POSTOPERATIVE DIAGNOSIS: Bilateral hydronephrosis. PROCEDURE PERFORMED: Cystoscopy, bilateral ureteral stent exchange. ANESTHESIA: MAC. COMPLICATIONS: There were no complications. DRAINS: Include 6-Bermudian x 24 cm double-J ureteral stents bilaterally. DESCRIPTION OF THE PROCEDURE: Tiana Chase was identified in the preoperative holding area, appropriate informed consents were reviewed and completed and the patient was transported to the operating suite. Of note, she has been on appropriate antibiotics on the floor and did not receive an additional dose prior to the procedure. Following appropriate sedation, she was placed in dorsal lithotomy position and sterilely prepped and draped. I then passed a cystoscope. Inspection revealed pus within the bladder, but no mucosal lesions or other abnormalities. Stents were easily seen protruding from bilateral ureteral orifices. I grasped the distal end of one of the stents and withdrew it. I then placed a wire through had watching this wire advanced to the right kidney. I placed a new 6-Bermudian 24 cm double-J ureteral stent over the wire with a good curl seen in the kidney as well as the bladder. I then reentered the bladder with the cystoscope and grasped the distal end of the left stent. I withdrew this to the meatus and intubated with a sensor wire which advanced to the kidney without difficulty. After removing the current stent, I placed a new 6-Bermudian 24 cm stent seeing a good curl in the kidney as well as the bladder. The bladder was decompressed, the patient was reversed from anesthesia and taken to the PACU in stable condition. I attest to the content of the Intraoperative Record and any orders documented therein. Any exceptio ns are noted below.
[2016-08-21] MEDS: ASPIRIN 81 MG ECTAB PO SCH (20:10)
[2016-08-21] MEDS: LACTOBACILLUS ACIDOPHILUS (FLORANEX) TAB PO SCH (20:11)
[2016-08-21] MEDS: CLOPIDOGREL BISULFATE 75 MG TAB PO SCH (20:11)
[2016-08-21] MEDS: ATORVASTATIN 40 MG TAB PO SCH (20:12)
[2016-08-22 00:17] VITALS: BP 127/67; PULSE 89; TEMP 37.5; O2SAT 97
[2016-08-22 05:30] LABS: HEMATOCRIT 28.7 % (37-47); MEAN CELL VOLUME 98.6 fL (80-100); MEAN CORPUSCULAR HEMOGLOBIN 30.6 pg (25-34); MEAN PLATELET VOLUME 9.6 fL (7.4-10.4); PLATELET COUNT 114 K/uL (130-400); RED BLOOD COUNT 2.91 M/uL (4.2-5.4); WHITE BLOOD COUNT 8.18 K/uL (4.8-10.8)
[2016-08-22] MEDS: IMIPENEM/CILASTATIN IV 200 MG in DEXTROSE 5% 100ML 100 ML IV SCH ×3 (06:02→18:01)
[2016-08-22 06:07] LABS: BUN/CREATININE RATIO 10.7 (10-20); CALCIUM 7.8 mg/dl (8.5-10.1); MAGNESIUM 1.8 mg/dl (1.8-2.4); POTASSIUM 4.8 mmol/L (3.5-5.1)
[2016-08-22 07:17] VITALS: BP 106/61; PULSE 83; TEMP 37.3; O2SAT 95
[2016-08-22] MEDS: NYSTATIN POWDER 15GM BTL EXT SCH ×2 (08:25→20:40)
[2016-08-22] MEDS: [UNRECOGNIZED DRUG - REMARK] SCH ×3 (08:26→20:07)
[2016-08-22] MEDS: CARVEDILOL 25 MG TAB PO SCH ×2 (08:26→20:42)
[2016-08-22] MEDS: PANTOprazole SOD 40 MG TAB PO SCH (08:26)
[2016-08-22] MEDS: CHOLECALCIFEROL 1000 INTER.UNIT TAB PO SCH (08:26)
[2016-08-22] MEDS: ONDANSETRON 4MG OD TAB PO PRN (08:27)
[2016-08-22] MEDS: RASPBERRY SYRUP 5 ML UDP PO SCH (08:27)
[2016-08-22] MEDS: CEROVITE ADV FORMULA TAB PO SCH (08:27)
--- NOTE | 2016-08-22 08:27 | Anesthesiology Progress Note ---
Anesthesia Post Op Note Date & Time Aug 22, 2016 at 08:26 Vital Signs Pain Intensity: 0.0 Vital Signs Past 12 Hours Date Time Temp Pulse Resp B/P Pulse Ox O2 Delivery O2 Flow Rate FiO2 08/22/16 08:00 Nasal Cannula 2.0 08/22/16 07:17 37.3 83 18 106/61 95 Nasal Cannula 2.0 08/22/16 00:17 37.5 89 18 127/67 97 2.0 08/22/16 00:00 Nasal Cannula 2.0 Notes Mental Status: alert / awake / arousable, participated in evaluation Pt Amnestic to Procedure: Yes Nausea / Vomiting: adequately controlled Pain: adequately controlled Airway Patency, RR, SpO2: stable & adequate BP & HR: stable & adequate Hydration State: stable & adequate Anesthetic Complications: no major complications apparent
--- NOTE | 2016-08-22 08:27 | Hospitalist Progress Note ---
Hospitalist Progress Note Date of Service Aug 22, 2016. Subjective Pt evaluation today including: conversation w/ patient, conversation w/ family , physical exam, chart review, lab review, review of studies, conversation w/ data processing consultant, review of inpatient medication list Voiding: no voiding problems, no incontinence Patient states she is feeling well. Cysto/bilateral stent exchange on 08/21 went well, with no complications. Patient is eating and drinking OK. Patient denies any fever, chills, sweats, lightheadedness, dizziness, vision changes, CP, palpitations, edema, SOB, wheezing, cough, abdominal pain, nausea, vomiting, diarrhea, urinary symptoms, melena, numbness/tingling, weakness, muscle/joint pain, anxiety/depression, active bleeding, or new skin discoloration/changes. Medications Current Inpatient Medications Medications (Trade) Dose Ordered Sig/Helder Route Start Time Stop Time Status Last Admin Dose Admin Acetaminophen (Tylenol Tab) 650 mg Q4H PRN PO 08/18/16 08:45 09/17/16 08:44 Heparin Sodium (Porcine) (Heparin Sq 5000 Unit/0.5ml) 5,000 unit Q12 SQ 08/18/16 13:00 09/17/16 12:59 08/21/16 20:07 5,000 UNIT Aspirin (Ecotrin Tab) 81 mg QPM PO 08/18/16 21:00 09/17/16 20:59 08/21/16 20:10 81 MG Atorvastatin Calcium (Lipitor Tab) 80 mg QPM PO 08/18/16 21:00 09/17/16 20:59 08/21/16 20:12 80 MG Carvedilol (Coreg Tab) 25 mg BID PO 08/18/16 12:30 09/17/16 12:29 08/21/16 20:11 25 MG Cholecalciferol (Vitamin D Tab) 1 inter.unit DAILY PO 08/18/16 12:30 09/17/16 12:29 08/21/16 08:20 1 INTER.UNIT Clopidogrel Bisulfate (plAVix TAB) 75 mg QPM PO 08/18/16 21:00 09/17/16 20:59 08/21/16 20:11 75 MG Lorazepam (Ativan Tab) 0.5 mg Q6H PRN PO 08/18/16 08:45 09/17/16 08:44 Multivitamins/ Minerals (Multivitamin W/ Minerals Tab) 1 tab QAM PO 08/18/16 12:30 09/17/16 12:29 08/21/16 08:24 1 TAB Nystatin (Mycostatin Powder) 1 appln BID EXT 08/18/16 12:30 09/17/16 12:29 08/21/16 20:10 1 APPLN Ondansetron HCl (Zofran Odt) 4 mg Q6H PRN PO 08/18/16 08:45 09/17/16 08:44 08/20/16 12:16 4 MG Pantoprazole Sodium (Protonix Tab) 40 mg QAM PO 08/18/16 12:30 09/17/16 12:29 08/21/16 08:21 40 MG Vancomycin HCl (Vancomycin Oral Soln) 125 mg QAM PO 08/18/16 13:00 09/01/16 12:59 08/21/16 08:28 125 MG Febuxostat (Uloric) 40 mg DAILY@1200 PO 08/18/16 13:00 09/17/16 12:59 08/21/16 13:10 40 MG Miscellaneous Information (Order Awaiting Action) 1 ea TID N/A 08/18/16 12:45 09/17/16 12:44 08/21/16 08:22 1 EA Lactobacillus Acidophilus (Floranex Tab) 1 tab QPM PO 08/18/16 21:00 09/17/16 20:59 08/21/16 20:11 1 TAB Raspberry (Raspberry Syrup 5ml Cup) 5 ml QAM PO 08/18/16 13:00 09/01/16 12:59 08/21/16 08:24 5 ML Imipenem/ Cilastatin Sodium 1 ea 1 ea UD PRN N/A 08/20/16 11:00 08/23/16 23:59 Imipenem/ Cilastatin Sodium/ Dextrose (Primaxin Iv/D5 100ml) 104 ml @ 104 mls/hr Q6H IV 08/20/16 12:00 08/23/16 23:59 08/22/16 06:02 104 MLS/HR Heparin Sodium (Porcine) (Heparin 10 Unit/ ml 5 ml Flush) 5 ml PRN PRN FLUSH 08/20/16 19:30 09/19/16 19:29 08/22/16 05:47 5 ML Objective Vital Signs Date Time Temp Pulse Resp B/P Pulse Ox O2 Delivery O2 Flow Rate FiO2 08/22/16 08:00 Nasal Cannula 2.0 08/22/16 07:17 37.3 83 18 106/61 95 Nasal Cannula 2.0 08/22/16 00:17 37.5 89 18 127/67 97 2.0 08/22/16 00:00 Nasal Cannula 2.0 08/21/16 20:25 37.2 82 16 128/72 99 Nasal Cannula 2.0 08/21/16 20:00 Nasal Cannula 2.0 08/21/16 19:34 37.1 82 18 127/73 96 Nasal Cannula 2.0 08/21/16 18:27 36.8 91 20 121/57 92 Nasal Cannula 2.0 08/21/16 17:55 37.1 85 18 118/65 96 Nasal Cannula 2.0 08/21/16 17:25 37.1 18 115/71 98 Nasal Cannula 2.0 08/21/16 17:16 37.0 86 18 144/73 97 Nasal Cannula 2.0 08/21/16 17:01 Nasal Cannula 2.0 08/21/16 16:55 36.8 81 18 135/73 98 Nasal Cannula 2.0 08/21/16 16:45 78 19 143/55 100 Nasal Cannula 2 08/21/16 16:35 36.7 78 16 139/65 99 Nasal Cannula 2 08/21/16 16:25 79 17 143/59 100 Mask 10 08/21/16 16:16 36.1 79 16 117/61 100 Mask 10 08/21/16 16:00 Nasal Cannula 2.0 Physical Exam General Appearance: no apparent distress Eyes: normal inspection, PERRL ENT: hearing grossly normal Neck: supple Respiratory/Chest: lungs clear, no respiratory distress, no accessory muscle use Cardiovascular: regular rate, rhythm Abdomen: normal bowel sounds, non tender, soft Extremities: no pedal edema, no calf tenderness Neurologic/Psychiatric: alert, normal mood/affect, oriented x 3 Skin: normal color, warm/dry, no rash Laboratory Results Last 24 Hours Test 08/21/16 16:19 08/22/16 05:15 Bedside Glucose 94 mg/dl White Blood Count 8.18 K/uL Red Blood Count 2.91 M/uL Hemoglobin 8.9 g/dL Hematocrit 28.7 % Mean Corpuscular Volume 98.6 fL Mean Corpuscular Hemoglobin 30.6 pg Mean Corpuscular Hemoglobin Concent 31.0 g/dl RDW Standard Deviation 59.8 fL RDW Coefficient of Variation 16.6 % Platelet Count 114 K/uL Mean Platelet Volume 9.6 fL Sodium Level 143 mmol/L Potassium Level 4.8 mmol/L Chloride Level 104 mmol/L Carbon Dioxide Level 31 mmol/L Anion Gap 8.0 mmol/L Blood Urea Nitrogen 32 mg/dl Creatinine 3.00 mg/dl Est Creatinine Clear Calc Drug Dose 13.6 ml/min Estimated GFR () 16.0 Estimated GFR (Non- 13.8 BUN/Creatinine Ratio 10.7 Random Glucose 94 mg/dl Calcium Level 7.8 mg/dl Magnesium Level 1.8 mg/dl Assessment and Plan This is an 81 yo F with PMHx CKD stage III, multiple occurrences of BONNIE, CHF, HTN, s/p IL, DM II, UTI with MDRO including Klebsiella. PT presents with worsening weakness, confusion and diarrhea over the past 2 days in the setting of klebsiella UTI currently being treated with ertapenem 1g daily x 12 days, scheduled for at least 2 weeks. 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 Griffin--> ?Ertapenem reaction, Start Imipenem on 08/20 x5 days - Urology consulted- appreciate recommendations -- Cysto and bilateral stent exchange by Dr. Reeves on 08/21--> pus in bladder, bilateral hydronephrosis, no complications Weakness: Continue PT/OT CKD stage IV, baseline approx 3.1-3.2: - Stable. Follow PRP - Nephrotoxic medications avoided and renally dosed medications administered Anemia of chronic disease: - Hemoglobin stable - Follow CBC Thrombocytopenia, ?secondary to heparin: - Follow CBC. If continues to drop, will d/c heparin SQ Non anion gap met acidosis with HCO3 15 and and hyperkalemia 5.5, CKD stage IV , resolved: - Treated with D5W + 150 HCO3 - Follow PRP Hypomagnesemia: - Replete PRN - Follow mag level h/o C. Difficile Infection- c. diff negative: - Vancomycin 125 mg daily was continued for c.diff suppression--> per ID, continue Vancomycin until UTI antibiotic treatment completed - Per , follow-up appointment on 09/03 Chronic Systolic Congestive Heart Failure without Exacerbation: - Echo (2015) - EF 35-40% completed during last admission - Daily weights and I&Os monitored without evidence of failure during admission - Patient maintained on Carvedilol 25 mg BID - Continue ANG for now as no BONNIE, although pt has significant hx of this DVT PPx: Heparin sq BID, CODI/SCDs CODE STATUS: FULL CODE Disposition: - Patient from home. PT recommending SNF placement-- patient and refuse placement. - ID recommends completing IV antibiotic treatment in house. Treatment will be completed on 08/24
[2016-08-22] MEDS: HEPARIN SOD 5000 UNIT/0.5 ML CARP SQ SCH ×2 (08:30→20:39)
[2016-08-22] MEDS: VANCOMYCIN HCL 125 MG/2.5ML SOLN PO SCH (08:31)
--- NOTE | 2016-08-22 09:16 | Progress Note ---
Progress Note Date of Service Aug 22, 2016. Progress Note Subjectively doing well - tolerated her stent exchange well yesterday -NAD - appropriately interactive - abd soft Cr 4.0 (has been trending up for several days) A/P: POD #1 s/p b/l stent exchange - subjectively doing well - I suspect her variable renal function has little to do with the stents/ obstruction as it has not previously shown much correlation to the presence/ absence of stents, etc - from a urology standpoint, she is stable for d/c home, but defer all other d/ c instructions to the primary team
--- NOTE | 2016-08-22 11:08 | Infectious Disease Progress Nt ---
Progress Note Date of Service Aug 22, 2016. Subjective Pt evaluation today including: conversation w/ patient, physical exam, chart review, lab review, review of studies, conversation w/ nursing education consultant (Dr. Engle), review of inpatient medication list WBC count 8.18 today. Creatinine was 3.00. Operative record was reviewed and noted pus in the bladder but no lesions. Stents were exchanged. She is tolerating IV Primaxin. Cultures continue to show no growth. All Other Systems: Reviewed and Negative Medications Current Inpatient Medications Medications (Trade) Dose Ordered Sig/Helder Route Start Time Stop Time Status Last Admin Dose Admin Acetaminophen (Tylenol Tab) 650 mg Q4H PRN PO 08/18/16 08:45 09/17/16 08:44 Heparin Sodium (Porcine) (Heparin Sq 5000 Unit/0.5ml) 5,000 unit Q12 SQ 08/18/16 13:00 09/17/16 12:59 08/22/16 08:30 5,000 UNIT Aspirin (Ecotrin Tab) 81 mg QPM PO 08/18/16 21:00 09/17/16 20:59 08/21/16 20:10 81 MG Atorvastatin Calcium (Lipitor Tab) 80 mg QPM PO 08/18/16 21:00 09/17/16 20:59 08/21/16 20:12 80 MG Carvedilol (Coreg Tab) 25 mg BID PO 08/18/16 12:30 09/17/16 12:29 08/22/16 08:26 25 MG Cholecalciferol (Vitamin D Tab) 1 inter.unit DAILY PO 08/18/16 12:30 09/17/16 12:29 08/22/16 08:26 1 INTER.UNIT Clopidogrel Bisulfate (plAVix TAB) 75 mg QPM PO 08/18/16 21:00 09/17/16 20:59 08/21/16 20:11 75 MG Lorazepam (Ativan Tab) 0.5 mg Q6H PRN PO 08/18/16 08:45 09/17/16 08:44 Multivitamins/ Minerals (Multivitamin W/ Minerals Tab) 1 tab QAM PO 08/18/16 12:30 09/17/16 12:29 08/22/16 08:27 1 TAB Nystatin (Mycostatin Powder) 1 appln BID EXT 08/18/16 12:30 09/17/16 12:29 08/22/16 08:25 1 APPLN Ondansetron HCl (Zofran Odt) 4 mg Q6H PRN PO 08/18/16 08:45 09/17/16 08:44 08/22/16 08:27 4 MG Pantoprazole Sodium (Protonix Tab) 40 mg QAM PO 08/18/16 12:30 09/17/16 12:29 08/22/16 08:26 40 MG Vancomycin HCl (Vancomycin Oral Soln) 125 mg QAM PO 08/18/16 13:00 09/01/16 12:59 08/22/16 08:31 125 MG Febuxostat (Uloric) 40 mg DAILY@1200 PO 08/18/16 13:00 09/17/16 12:59 08/21/16 13:10 40 MG Miscellaneous Information (Order Awaiting Action) 1 ea TID N/A 08/18/16 12:45 09/17/16 12:44 08/22/16 08:26 1 EA Lactobacillus Acidophilus (Floranex Tab) 1 tab QPM PO 08/18/16 21:00 09/17/16 20:59 08/21/16 20:11 1 TAB Raspberry (Raspberry Syrup 5ml Cup) 5 ml QAM PO 08/18/16 13:00 09/01/16 12:59 08/22/16 08:27 5 ML Imipenem/ Cilastatin Sodium 1 ea 1 ea UD PRN N/A 08/20/16 11:00 08/23/16 23:59 Imipenem/ Cilastatin Sodium/ Dextrose (Primaxin Iv/D5 100ml) 104 ml @ 104 mls/hr Q6H IV 08/20/16 12:00 08/23/16 23:59 08/22/16 06:02 104 MLS/HR Heparin Sodium (Porcine) (Heparin 10 Unit/ ml 5 ml Flush) 5 ml PRN PRN FLUSH 08/20/16 19:30 09/19/16 19:29 08/22/16 05:47 5 ML Objective Vital Signs Date Time Temp Pulse Resp B/P Pulse Ox O2 Delivery O2 Flow Rate FiO2 08/22/16 08:00 Nasal Cannula 2.0 08/22/16 07:17 37.3 83 18 106/61 95 Nasal Cannula 2.0 08/22/16 00:17 37.5 89 18 127/67 97 2.0 08/22/16 00:00 Nasal Cannula 2.0 08/21/16 20:25 37.2 82 16 128/72 99 Nasal Cannula 2.0 08/21/16 20:00 Nasal Cannula 2.0 08/21/16 19:34 37.1 82 18 127/73 96 Nasal Cannula 2.0 08/21/16 18:27 36.8 91 20 121/57 92 Nasal Cannula 2.0 08/21/16 17:55 37.1 85 18 118/65 96 Nasal Cannula 2.0 08/21/16 17:25 37.1 18 115/71 98 Nasal Cannula 2.0 08/21/16 17:16 37.0 86 18 144/73 97 Nasal Cannula 2.0 08/21/16 17:01 Nasal Cannula 2.0 08/21/16 16:55 36.8 81 18 135/73 98 Nasal Cannula 2.0 08/21/16 16:45 78 19 143/55 100 Nasal Cannula 2 08/21/16 16:35 36.7 78 16 139/65 99 Nasal Cannula 2 08/21/16 16:25 79 17 143/59 100 Mask 10 08/21/16 16:16 36.1 79 16 117/61 100 Mask 10 08/21/16 16:00 Nasal Cannula 2.0 Physical Exam General Appearance: WD/WN, no apparent distress Eyes: sclerae normal ENT: hearing grossly normal Neck: supple, trachea midline Respiratory/Chest: chest non-tender, normal breath sounds, no respiratory distress, no accessory muscle use Cardiovascular: regular rate, rhythm Abdomen: normal bowel sounds, non tender Neurologic/Psychiatric: alert, normal mood/affect Skin: normal color, warm/dry, no rash Laboratory Results Last 24 Hours Test 08/21/16 16:19 08/22/16 05:15 Bedside Glucose 94 mg/dl White Blood Count 8.18 K/uL Red Blood Count 2.91 M/uL Hemoglobin 8.9 g/dL Hematocrit 28.7 % Mean Corpuscular Volume 98.6 fL Mean Corpuscular Hemoglobin 30.6 pg Mean Corpuscular Hemoglobin Concent 31.0 g/dl RDW Standard Deviation 59.8 fL RDW Coefficient of Variation 16.6 % Platelet Count 114 K/uL Mean Platelet Volume 9.6 fL Sodium Level 143 mmol/L Potassium Level 4.8 mmol/L Chloride Level 104 mmol/L Carbon Dioxide Level 31 mmol/L Anion Gap 8.0 mmol/L Blood Urea Nitrogen 32 mg/dl Creatinine 3.00 mg/dl Est Creatinine Clear Calc Drug Dose 13.6 ml/min Estimated GFR () 16.0 Estimated GFR (Non- 13.8 BUN/Creatinine Ratio 10.7 Random Glucose 94 mg/dl Calcium Level 7.8 mg/dl Magnesium Level 1.8 mg/dl Assessment and Plan Patient with recurrent UTI's, encephalopathy, and possible reaction to Ertapenem with indwelling ureteral stents with questionable chronic infection. Patient is now s/p bilateral ureteral stent exchange. Pus was noted in her bladder. Recommend that she complete at least 5 days total (2 more days) for suspected bladder infection and infected stent removal. She is tolerating IV Primaxin. Would prefer to continue this in house for 2 more days due to difficult to do at home. She could do Gentamicin or Tobramycin at home, but with her kidney function, this is not ideal. We will follow this patient. Case reviewed and agree with above assessment. s/p exchange, continue abx.
[2016-08-22] MEDS: FEBUXOSTAT 40 MG TAB PO SCH (12:24)
[2016-08-22 15:48] VITALS: BP 133/75; PULSE 84; TEMP 37.1; O2SAT 100
[2016-08-22 16:15] VITALS: O2SAT 100
[2016-08-22 20:41] VITALS: BP 116/65; PULSE 84
[2016-08-22] MEDS: ASPIRIN 81 MG ECTAB PO SCH (20:42)
[2016-08-22] MEDS: LACTOBACILLUS ACIDOPHILUS (FLORANEX) TAB PO SCH (20:43)
[2016-08-22] MEDS: CLOPIDOGREL BISULFATE 75 MG TAB PO SCH (20:43)
[2016-08-22] MEDS: ATORVASTATIN 40 MG TAB PO SCH (20:43)
[2016-08-23] VITALS: BP 92/55; PULSE 84; TEMP 37.1; O2SAT 97
[2016-08-23] MEDS: IMIPENEM/CILASTATIN IV 200 MG in DEXTROSE 5% 100ML 100 ML IV SCH ×3 (00:07→12:00)
[2016-08-23 05:50] LABS: HEMATOCRIT 26.7 % (37-47); MEAN CELL VOLUME 98.5 fL (80-100); MEAN CORPUSCULAR HGB CONC 31.5 g/dl (32-36); PLATELET COUNT 100 K/uL (130-400); RED BLOOD COUNT 2.71 M/uL (4.2-5.4); WHITE BLOOD COUNT 5.24 K/uL (4.8-10.8)
[2016-08-23 06:17] LABS: BUN/CREATININE RATIO 10.7 (10-20); CALCIUM 7.8 mg/dl (8.5-10.1); CREATININE 3.3 mg/dl (0.60-1.20); MAGNESIUM 1.7 mg/dl (1.8-2.4); POTASSIUM 4.5 mmol/L (3.5-5.1)
[2016-08-23] MEDS ORDERED: MAGNESIUM SULFATE 1GM / D5W 1 GM in PREMIXED IN D5W 100 ML IV ONE (08:00)
[2016-08-23 08:02] VITALS: BP 123/74; PULSE 74; TEMP 37.1; O2SAT 98
[2016-08-23] MEDS: CEROVITE ADV FORMULA TAB PO SCH (08:05)
[2016-08-23] MEDS: PANTOprazole SOD 40 MG TAB PO SCH (08:05)
[2016-08-23] MEDS: CARVEDILOL 25 MG TAB PO SCH (08:05)
[2016-08-23] MEDS: CHOLECALCIFEROL 1000 INTER.UNIT TAB PO SCH (08:06)
[2016-08-23] MEDS: RASPBERRY SYRUP 5 ML UDP PO SCH (08:06)
[2016-08-23] MEDS: VANCOMYCIN HCL 125 MG/2.5ML SOLN PO SCH (08:09)
[2016-08-23] MEDS: [UNRECOGNIZED DRUG - REMARK] SCH (08:11)
--- NOTE | 2016-08-23 08:15 | Discharge Instructions ---
Discharge Instructions Date of Service Aug 23, 2016. Admission Reason for Admission: Uti,Altered Mental Status Discharge Discharge Diagnosis / Problem: UTI; AMS Discharge Goals Goal(s): Decrease discomfort, Improve function, Improve disease control, Learn about illness, Diagnostic testing, Therapeutic intervention, Prevent Disease Progression Activity Recommendations Activity Limitations: resume your previous activity . Instructions / Follow-Up Instructions / Follow-Up You will need 5 more doses of IV Imipenem every 6 hours. [facility] is aware of first home dosage on 08/23 at 6:00PM. Resume all other regular home medications as prescribed to you. It is important you remain well hydrated. Drink enough fluids to keep your urine light yellow/clear in color. Please follow-up with your PCP within 5-7 days. Please follow-up with Dr. Reeves's office as instructed by them. Office # [phone]. Please keep follow-up appointment with Infectious Disease as scheduled. Please follow-up/keep all of your subspecialty appointments. Current Hospital Diet Patient's current hospital diet: Regular Diet Discharge Diet Recommended Diet: Regular Diet Procedures Procedures Performed: 1. Cystoscopy, Bilateral Ureteral Stent Exchanges ([id number]) 2. Head CT 3. Chest x-ray 4. KUB x-ray Pending Studies Studies pending at discharge: no Laboratory Results Last 24 Hours Test 08/23/16 05:15 White Blood Count 5.24 K/uL Red Blood Count 2.71 M/uL Hemoglobin 8.4 g/dL Hematocrit 26.7 % Mean Corpuscular Volume 98.5 fL Mean Corpuscular Hemoglobin 31.0 pg Mean Corpuscular Hemoglobin Concent 31.5 g/dl RDW Standard Deviation 60.1 fL RDW Coefficient of Variation 16.6 % Platelet Count 100 K/uL Mean Platelet Volume 10.0 fL Sodium Level 143 mmol/L Potassium Level 4.5 mmol/L Chloride Level 107 mmol/L Carbon Dioxide Level 27 mmol/L Anion Gap 9.0 mmol/L Blood Urea Nitrogen 35 mg/dl Creatinine 3.30 mg/dl Est Creatinine Clear Calc Drug Dose 12.4 ml/min Estimated GFR () 14.2 Estimated GFR (Non- 12.3 BUN/Creatinine Ratio 10.7 Random Glucose 88 mg/dl Calcium Level 7.8 mg/dl Magnesium Level 1.7 mg/dl Medical Emergencies . Who to Call and When: Medical Emergencies: If at any time you feel your situation is an emergency, please call 911 immediately. . Non-Emergent Contact Non-Emergency issues call your: Primary Care Provider Call Non-Emergent contact if: you have a fever, your pain is unusual for you, your pain is concerning you, you have any medication questions . . "Provider Documentation" section prepared by Celina Alvarez. VTE Core Measure Inpt VTE Proph given/why not?: Unfractionated heparin SQ, T.ETevin. Heleneings, SCD 's
[2016-08-23] MEDS: HEPARIN SOD 5000 UNIT/0.5 ML CARP SQ SCH (08:18)
--- NOTE | 2016-08-23 08:30 | Discharge Summary ---
Discharge Summary Date of Service Aug 23, 2016. Discharge Summary Admission Date: Aug 18, 2016 at 08:48 Discharge Date: Aug 23, 2016 Discharge Disposition: Home with services Principal Diagnosis: UTI; AMS Problems/Secondary Diagnoses: 1. Weakness 2. CKD stage IV 3. Anemia of chronic disease 4. Thrombocytopenia 5. Non anion gap met acidosis 6. Hypomagnesemia 7. h/o C. Difficile Infection 8. Chronic Systolic Congestive Heart Failure without Exacerbation Immunizations: Have You Had Influenza Vaccine: Yes Influenza Vaccine Date: Mar 17, 2010 History of Tetanus Vaccine?: No History of Pneumococcal: No Pneumococcal Date: Jun 06, 2011 History of Hepatitis B Vaccine: No Procedures: CT SCAN OF THE BRAIN WITHOUT IV CONTRAST CLINICAL HISTORY: Change in mental status. COMPARISON STUDY: CT of the brain dated 07/21/16. TECHNIQUE: Unenhanced axial CT scan of the brain is performed from the vertex to the skull base. CT DOSE: 614.27 mGy.cm FINDINGS: Brain parenchyma: There are age-related involutional changes noting moderate patchy subcortical and periventricular microangiopathic change. Small chronic lacunar infarcts are seen in the right cerebellar hemisphere, both caudate heads, the left basal ganglia, and the left thalamus. There is no hemorrhage, mass effect, or evidence of acute territorial ischemia by CT criteria. Bartlett-white matter is preserved. No extra-axial fluid collection is seen. Ventricles, sulci, cisterns: Prominent secondary to involutional change. Intracranial vasculature: There is atherosclerotic calcification of the cavernous carotid and vertebral arteries. Calvarium: Unremarkable. Sinuses and mastoids: The visualized paranasal sinuses are clear. The mastoid air cells are well pneumatized. Orbits: The bony orbits are grossly intact. There are bilateral ocular lens implants. IMPRESSION: Senescent changes as above with no hemorrhage, mass effect, or evidence of acute territorial ischemia by CT criteria. Electronically signed by: Hitesh Macdonald M.D. 08/18/2016 8:01 AM Dictated Date/Time: 08/18/2016 7:58 AM The status of this report is Signed. Draft = Not yet reviewed or approved by Radiologist. Signed = Reviewed and approved by Radiologist. SINGLE VIEW CHEST CLINICAL HISTORY: Expiratory rhonchi. FINDINGS: An AP, portable, upright chest radiograph is compared to study dated 08/08/2016. The examination is degraded by portable technique and patient rotation. A right PICC line is unchanged in position. A cardiac AICD device is unchanged and partially obscures the left lateral chest. The heart is enlarged and there is atherosclerotic calcification of the thoracic aorta. The pulmonary vasculature is noncongested. There are low lung volumes and bibasilar atelectasis. Chronic interstitial thickening is unchanged. No airspace consolidation, large pleural effusion, or pneumothorax is seen. The skeletal structures are osteopenic. The bony thorax is grossly intact. Cholecystectomy clips are identified in the right upper quadrant. IMPRESSION: 1. Cardiomegaly and AICD. There is no radiographic evidence of congestive failure. 2. No airspace consolidation or large pleural effusion is seen. Electronically signed by: Hitesh Macdonald M.D. 08/18/2016 8:37 AM Dictated Date/Time: 08/18/2016 8:36 AM The status of this report is Signed. Draft = Not yet reviewed or approved by Radiologist. Signed = Reviewed and approved by Radiologist. Cystoscopy, bilateral ureteral stent exchange DICTATED BY: Hardeep Reeves M.D. DATE OF OPERATION: 08/21/2016 PREOPERATIVE DIAGNOSIS: Bilateral hydronephrosis. POSTOPERATIVE DIAGNOSIS: Bilateral hydronephrosis. PROCEDURE PERFORMED: Cystoscopy, bilateral ureteral stent exchange. ANESTHESIA: MAC. COMPLICATIONS: There were no complications. DRAINS: Include 6-Anguillan x 24 cm double-J ureteral stents bilaterally. Consultations: Urology- Dr. Reeves, Dr. Boone, PILLO Hahn ID- Dr. Turner, Светлана Villarreal PA-C, Medication Reconciliation Continued Medications: Aspirin (Aspirin) 81 Mg Tab 81 MG PO QPM Atorvastatin (Lipitor) 80 Mg Tab 80 MG PO QPM Carvedilol (Carvedilol) 25 Mg Tab 25 MG PO BID Cholecalciferol (Vitamin D3) 1,000 Unit Tab 1 TAB PO DAILY for 90 Days, #90 TAB 3 Refills Clopidogrel Bisulfate (Clopidogrel) 75 Mg Tab 75 MG PO QPM WAS NOT INSTRUCTED TO HOLD Febuxostat (Uloric) 40 Mg Tab 40 MG PO NOON TAKE THIS MEDICATION DAILY WITH LUNCH Lorazepam (Ativan) 0.5 Mg Tab 0.5 MG PO Q6H PRN for Anxiety, TAB Loteprednol Etabonate (Lotemax) 0.5 % Gel 1 DROP OPB QAM Multiple Vitamins W/ Minerals (Centrum Silver Ultra Wome) 1 Tab Tab 1 TAB PO QAM Nystatin (Nystop) 45 Appln/15 Gm Powd 1 DOSE TOP BID Ondasetron Odt (Zofran Odt) 4 Mg Tab 4 MG PO Q6H PRN for Nausea Pantoprazole (Pantoprazole Sodium) 40 Mg Tab 40 MG PO QAM Probiotic Product (Probiotic) 1 Cap Cap 1 TAB PO QPM Vancomycin Hcl (Vancomycin) 125 Mg Cap 125 MG PO QAM Discontinued Medications: Ertapenem Sodium (Invanz) 1 Gm Inj 1 GM IV DAILY, VIAL PICC LINE Referrals At Discharge Follow up Referrals: Family Practice Referral - Within 1 Week with Jan Cervantes M.D. Urologist Referral - Please Call For Appointment with Hardeep Reeves M.D. Discharge Exam Review of Systems: Constitutional: No chills, No fatigue, No fever, No sweats, No weakness Respiratory: No cough, No hemoptysis, No shortness of breath Cardiovascular: No chest pain, No edema, No palpitations Abdomen: No constipation, No diarrhea, No nausea, No pain, No vomiting Musculoskeletal: No calf pain, No joint pain, No muscle pain, No swelling Genitourinary - Female: No dysuria, No hematuria Neurologic: No numbness/tingling, No weakness Psychiatric: No anxiety, No depression symptoms Hematologic / Lymphatic: No abnormal bleeding/bruising Integumentary: No itch, No new/changing skin lesions, No rash Physical Exam: General Appearance: no apparent distress Eyes: normal inspection, PERRL ENT: hearing grossly normal Neck: supple Respiratory/Chest: lungs clear, no respiratory distress, no accessory muscle use Cardiovascular: regular rate, rhythm Abdomen / GI: normal bowel sounds, non tender, soft Extremities: no calf tenderness, no pedal edema Neurologic/Psychiatric: alert, normal mood/affect, oriented x 3 Skin: normal color, warm/dry, no rash Hospital Course HPI at admission: This is an 81 yo F with PMHx CKD stage III, multiple occurrences of BONNIE, CHF, HTN, s/p CO, DM II, UTI with MDRO including Klebsiella. PT presents with worsening weakness, confusion and diarrhea over the past 2 days in the setting of klebsiella UTI currently being treated with ertapenem 1g daily x 12 days, scheduled for at least 2 weeks. The patient is accompanied by her who supplies the majority of the history. Pt was recently admitted for similar complaints where she was seen by infectious disease and started on ertapenem. He is her primary caregiver and reports having administered the ertapenem as directed. He reports that weakness has worsened to the point where she required being carried by him, and she normally ambulates with rolling walker and uses a wheelchair. Pt has had ~4 bouts of diarrhea x past 2 days, large brown and loose per . Pt is recieving PO vanc 125 mg once in the morning for c. diff prophylaxis, her last positive c. diff was in September 2015. The patient was also supposed to have ureteral stents changed by urology a few days ago and due to worsening mental status, weakness he didn't take her to the appointment as she "wouldn't be able to undergo that" . The patient is alert and oriented, she is agreeable to the history her provides. VSS, EKG was completed and showing some ST depressions which appear to be new in V4-6 since 08/05. Bicarb=16, K+ 5.4, Cl= 121, Cr= 2.6 and appears much better than it has been previously. 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 Griffin--> ?Ertapenem reaction. Started Imipenem q6 hrs on 08/20 x5 days. -- Patient will need 5 more doses of Imipenem at discharge-- > [facility] made aware of instructions - Urology consulted- appreciate recommendations -- Cysto and bilateral stent exchange by Dr. Reeves on 08/21--> pus in bladder, bilateral hydronephrosis, no complications Weakness: Continue PT/OT CKD stage IV, baseline approx 3.1-3.2: - Stable. Follow PRP - Nephrotoxic medications avoided and renally dosed medications administered Anemia of chronic disease: - Hemoglobin stable - Follow CBC Thrombocytopenia, ?secondary to heparin: - Follow CBC. If continues to drop, will d/c heparin SQ Non anion gap met acidosis with HCO3 15 and and hyperkalemia 5.5, CKD stage IV , resolved: - Treated with D5W + 150 HCO3 - Follow PRP Hypomagnesemia: - Replete PRN - Follow mag level h/o C. Difficile Infection- c. diff negative: - Vancomycin 125 mg daily was continued for c.diff suppression--> per ID, continue Vancomycin until UTI antibiotic treatment completed - Per , follow-up appointment on 09/03 Chronic Systolic Congestive Heart Failure without Exacerbation: - Echo (2015) - EF 35-40% completed during last admission - Daily weights and I&Os monitored without evidence of failure during admission - Patient maintained on Carvedilol 25 mg BID - Continue ANG for now as no BONNIE, although pt has significant hx of this DVT PPx: Heparin sq BID, CODI/SCDs CODE STATUS: FULL CODE Disposition: Discharge to home with health services Total Time Spent: Greater than 30 minutes This includes examination of the patient, discharge planning, medication reconciliation, and communication with other providers. Discharge Instructions Please refer to the electronic Patient Visit Report (Discharge Instructions) for additional information. Follow-Up Please follow-up with your PCP within 5-7 days Please follow-up with Urology as instructed by them Keep follow-up appointment with ID as scheduled Please follow-up/keep all of your subspecialty appointments Additional Copies To Jan Cervantes M.D.
[2016-08-23] MEDS: NYSTATIN POWDER 15GM BTL EXT SCH (08:31)
[2016-08-23] MEDS: FEBUXOSTAT 40 MG TAB PO SCH (12:00)
[2016-08-23 12:14] VITALS: BP 123/74; PULSE 74; TEMP 37.1; O2SAT 98
[2016-10-16] MEDS ORDERED: CRANBERRY PO (12:34)
[2016-11-05] MEDS ORDERED: CARV12.52 PO (08:41)
[2016-12-04] MEDS ORDERED: CPR500 PO (09:01)
[2016-12-04] MEDS ORDERED: METR-162 PO (09:01)
== END 2016-08-23 14:20 | disposition home health service (06) | DRG 689 ==
LOC: ENRESERVTM → ENRESERVDT → EDUNIT# 06:52 → C.EDA 06:54 → C.MS2W 08:48 → UNDOADMIN 10:32 → C.MS2W 10:32
PROVIDERS: ADMIT Family Medicine; ATTEND Internal Medicine
PROC: 0T788DZ Dilation of Bilateral Ureters with Intraluminal Device, Via Natural or Artificial Opening Endoscopic (ICD-10-PCS; 2016-08-21)
PROC: 0TP98DZ Removal of Intraluminal Device from Ureter, Via Natural or Artificial Opening Endoscopic (ICD-10-PCS; principal; 2016-08-21 07:15)
DX: N13.6 Pyonephrosis (principal); G93.40 Encephalopathy, unspecified; I13.2 Hypertensive heart and chronic kidney disease with heart failure and with stage 5 chronic kidney disease, or end stage renal disease; I50.22 Chronic systolic (congestive) heart failure; E87.2 Acidosis; E87.0 Hyperosmolality and hypernatremia; J96.10 Chronic respiratory failure, unspecified whether with hypoxia or hypercapnia; E11.22 Type 2 diabetes mellitus with diabetic chronic kidney disease; N18.6 End stage renal disease; I25.2 Old myocardial infarction; E86.0 Dehydration; N17.9 Acute kidney failure, unspecified; E78.00 Pure hypercholesterolemia, unspecified; E66.9 Obesity, unspecified; I08.1 Rheumatic disorders of both mitral and tricuspid valves; Z90.49 Acquired absence of other specified parts of digestive tract; Z88.8 Allergy status to other drugs, medicaments and biological substances; Z88.2 Allergy status to sulfonamides; Z79.82 Long term (current) use of aspirin; Z79.899 Other long term (current) drug therapy; D63.8 Anemia in other chronic diseases classified elsewhere; E87.5 Hyperkalemia; R32 Unspecified urinary incontinence; R15.9 Full incontinence of feces; B96.1 Klebsiella pneumoniae [K. pneumoniae] as the cause of diseases classified elsewhere; D69.6 Thrombocytopenia, unspecified; E83.42 Hypomagnesemia; R19.7 Diarrhea, unspecified; N30.10 Interstitial cystitis (chronic) without hematuria; I25.5 Ischemic cardiomyopathy; I27.2 Other secondary pulmonary hypertension; Z16.24 Resistance to multiple antibiotics; Z94.7 Corneal transplant status; Z95.810 Presence of automatic (implantable) cardiac defibrillator

== ENCOUNTER → 2016-09-04 | Outpatient (CLI) | payer MEDICARE ==
[~2016-09-04] MED LIST changes: +CARV12.52 PO; +CEFD1CAP14 PO; +COCO1OIL2 PO; +CPR500 PO; +CRAN1TAB PO; +CRANBERRY PO; -ERTA1INJ IV; +FURO-85 PO; +METR-162 PO; +SODI650T8 PO
[2016-09-04 08:37] LABS: HEMATOCRIT 32.3 % (37-47); MEAN CELL VOLUME 99.4 fL (80-100); MEAN CORPUSCULAR HEMOGLOBIN 30.8 pg (25-34); MEAN PLATELET VOLUME 9.7 fL (7.4-10.4); PLATELET COUNT 184 K/uL (130-400); RED BLOOD COUNT 3.25 M/uL (4.2-5.4); WHITE BLOOD COUNT 11.51 K/uL (4.8-10.8)
[2016-09-04 08:53] LABS: BLOOD UREA NITROGEN 69 mg/dl (7-18); BUN/CREATININE RATIO 24.6 (10-20); CALCIUM 8.6 mg/dl (8.5-10.1); CARBON DIOXIDE 19 mmol/L (21-32); CHLORIDE 116 mmol/L (98-107); GLUCOSE 121 mg/dl (70-99); POTASSIUM 5.7 mmol/L (3.5-5.1); SODIUM 146 mmol/L (136-145)
[2016-09-04 11:27] LABS: BASO % 0.6 %; BASO ABS # 0.07 K/uL (0-0.2); COMPLETE YES; EOS % 3.9 %; IG% 5.3 %; LYMPH % 17.3 %; LYMPH ABS # 1.99 K/uL (1.2-3.4); MONO % 5.6 %; NEUT % 67.3 %
== END | disposition home or self-care (01) ==
LOC: C.LABSPEC 07:45
PROVIDERS: ATTEND Internal Medicine Infectious Disease
DX: A04.7 Enterocolitis due to Clostridium difficile (principal)

== ENCOUNTER → 2016-09-11 | Outpatient (CLI) | payer MEDICARE ==
[2016-09-11 08:08] LABS: BLOOD UREA NITROGEN 114 mg/dl (7-18); BUN/CREATININE RATIO 33.6 (10-20); CALCIUM 9.1 mg/dl (8.5-10.1); CARBON DIOXIDE 16 mmol/L (21-32); CHLORIDE 117 mmol/L (98-107); GLUCOSE 134 mg/dl (70-99); SODIUM 144 mmol/L (136-145)
[2016-09-11 08:09] LABS: PHOSPHORUS 4.2 mg/dl (2.5-4.9)
== END | disposition home or self-care (01) ==
LOC: C.LABSPEC 07:40
PROVIDERS: ATTEND Internal Medicine Nephrology
DX: N18.4 Chronic kidney disease, stage 4 (severe) (principal)

== ENCOUNTER → 2016-09-13 | Outpatient (CLI) | payer MEDICARE ==
[~2016-09-13] MED LIST changes: +PANT40TA2 PO; -PRT/40 PO
[2016-09-13 09:05] LABS: BLOOD UREA NITROGEN 120 mg/dl (7-18); BUN/CREATININE RATIO 31.4 (10-20); CALCIUM 9.6 mg/dl (8.5-10.1); CARBON DIOXIDE 16 mmol/L (21-32); CHLORIDE 115 mmol/L (98-107); GLUCOSE 125 mg/dl (70-99); POTASSIUM 5.6 mmol/L (3.5-5.1); SODIUM 144 mmol/L (136-145)
== END | disposition home or self-care (01) ==
LOC: C.LABSPEC 07:40
PROVIDERS: ATTEND Internal Medicine Nephrology
DX: N18.4 Chronic kidney disease, stage 4 (severe) (principal)

== ENCOUNTER 2016-09-20 11:39 | Inpatient (IN) | payer MEDICARE, OTHER ==
[~2016-09-20] VITALS: Ht 162.6 cm; Wt 61.0 kg
[~2016-09-20 11:39] MED LIST changes: -CARV12.52 PO; -CEFD1CAP14 PO; -COCO1OIL2 PO; -CPR500 PO; -CRAN1TAB PO; -CRANBERRY PO; -FURO-85 PO; -METR-162 PO; -SODI650T8 PO
[2016-09-20] MEDS ORDERED: SODIUM CHLORIDE 0.9% 500ML 500 ML IV STA (12:00)
--- NOTE | 2016-09-20 12:32 | DIAGNOSTIC IMAGING REPORT ---
KUB HISTORY: eval urinary stents COMPARISON: KUB 06/12/2016. FINDINGS: The bowel gas pattern is unremarkable. There are no dilated loops of small bowel to suggest an obstruction. No renal calculi. No ureteral calculi. Cholecystectomy. Bilateral ureteral stents appear to be in good position. Stable punctate calcification within the left deep pelvis favors a phlebolith. Moderate osteoarthritis within the bilateral hips. Mild levoscoliosis of the lumbar spine. Round calcification within the left midabdomen superior to the left renal stent remains stable. This likely represents a vascular calcification. IMPRESSION: The bilateral ureteral stents appear in good position. No renal or ureteral calculi. Electronically signed by: Dusty Newsome M.D. 09/20/2016 12:30 PM Dictated Date/Time: 09/20/2016 12:28 PM
[2016-09-20] MEDS ORDERED: POLYETHYLENE (MIRALAX) 17 GM PACK PO PRN (13:15)
[2016-09-20] MEDS ORDERED: LORAZEPAM 0.5 MG TAB PO PRN (13:15)
[2016-09-20] MEDS ORDERED: ACETAMINOPHEN 325 MG TAB PO PRN (13:15)
[2016-09-20] MEDS ORDERED: MAGNESIUM HYDROXIDE SUSP 30 ML UDC PO PRN (13:15)
[2016-09-20] MEDS ORDERED: ALUMINUM/MAGNESIUM/SIMETH (MAALOX MAX) 30 ML UDC PO PRN (13:15)
[2016-09-20] MEDS ORDERED: IMIPENEM/CILASTATIN IV 500 MG in DEXTROSE 5% 100ML 100 ML IV SCH ×2 (13:15→15:15)
--- NOTE | 2016-09-20 13:56 | History and Physical ---
History & Physical Date & Time of Service: Sep 20, 2016 at 13:35 Chief Complaint: Referred Primary Care Physician: Jan Cervantes M.D. History of Present Illness Source: patient, family, clinic records, hospital records Patient is a pleasant 81 y/o female, with PMHx CKD stage III, multiple occurrences of BONNIE, CHF, HTN, s/p WA, DM II, UTI with MDRO including Klebsiella , presented to the ED because of BONNIE. Patient had blood work today (09/20) by home health services which reported Cr. of 5.7. Patient's spoke with dimethylaniline sulfator operator who recommended patient come to ED. According to the patient, she has had decreased appetite/fluid intake over the last couple of days. She denies feeling unwell, she just doesn't have an appetite. She denies any urinary symptoms. She was admitted on 08/18 because of recurrent UTI and treated w / IV Imipenem. She completed entire course of antibiotic therapy, and followed- up closely w/ Dr. rGiffin. Patient had bilateral stent exchange on 08/[address] Reeves during last admission. Patient denies any fever, chills, sweats, lightheadedness, dizziness, vision changes, CP, palpitations, edema, SOB, wheezing, cough, abdominal pain, nausea, vomiting, diarrhea, urinary symptoms, melena, numbness/tingling, weakness, muscle/joint pain, anxiety/depression, active bleeding, or new skin discoloration/changes. Past Medical/Surgical History Medical Problems: # CKD stage IV (advanced impairment). 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 difficile colitis # Chronic respiratory failure requiring ATC 02 # Obesity # General debilitated condition Surgical: # Bilateral corneal transplant # Cholecystectomy # Appendectomy # AICD # Bilateral ureteral stent 07/02- exchanged 08/31 Family History Other cardiovascular diseases Social History Smoking Status: Never Smoker Drug Use: none Marital Status: Housing status: lives with family, snf Occupational Status: retired Immunizations History of Influenza Vaccine: Yes Influenza Vaccine Date: Mar 17, 2010 History of Tetanus Vaccine?: No History of Pneumococcal: No Pneumococcal Date: Jun 06, 2011 History of Hepatitis B Vaccine: No Multi-Drug Resistant Organisms History of MDRO: Yes Type of MDRO: other Allergies Coded Allergies: Sulfa Antibiotics (Verified Allergy, Intermediate, BODY SWELLING,NAUSEA AND VOMITNG, 09/20/16) Penicillins (Verified Allergy, Unknown, Tolerates Primaxin, 09/20/16) PER PCP RECORDS Home Medications Scheduled Aspirin (Aspirin), 81 MG PO QPM Atorvastatin (Lipitor), 80 MG PO QPM Carvedilol (Carvedilol), 25 MG PO BID Cholecalciferol (Vitamin D3), 1 TAB PO DAILY Clopidogrel Bisulfate (Clopidogrel), 75 MG PO QPM Febuxostat (Uloric), 40 MG PO NOON Loteprednol Etabonate (Lotemax), 1 DROP OPB QAM Multiple Vitamins W/ Minerals (Centrum Silver Ultra Wome), 1 TAB PO QAM Nystatin (Nystop), 1 DOSE TOP BID Pantoprazole (Pantoprazole Sodium), 40 MG PO QAM Probiotic Product (Probiotic), 1 TAB PO QPM Vancomycin Hcl (Vancomycin), 125 MG PO QAM Scheduled PRN Lorazepam (Ativan), 0.5 MG PO Q6H PRN for Anxiety Ondasetron Odt (Zofran Odt), 4 MG PO Q6H PRN for Nausea Physical Exam Vital Signs Date Time Temp Pulse Resp B/P Pulse Ox O2 Delivery O2 Flow Rate FiO2 09/20/16 11:49 Nasal Cannula 2.0 09/20/16 11:39 36.6 72 20 107/61 100 Nasal Cannula 2.0 General Appearance: no apparent distress Head: normocephalic, atraumatic Eyes: normal inspection, PERRL ENT: hearing grossly normal Neck: supple Respiratory/Chest: lungs clear, no respiratory distress, no accessory muscle use Cardiovascular: regular rate, rhythm Abdomen/GI: normal bowel sounds, non tender, soft Back: normal inspection Extremities/Musculoskelatal: no calf tenderness, no pedal edema Neurologic/Psych: alert, normal mood/affect, oriented x 3 Skin: normal color, warm/dry, no rash Diagnostics Diagnostic Radiology KUB HISTORY: eval urinary stents COMPARISON: KUB 06/12/2016. FINDINGS: The bowel gas pattern is unremarkable. There are no dilated loops of small bowel to suggest an obstruction. No renal calculi. No ureteral calculi. Cholecystectomy. Bilateral ureteral stents appear to be in good position. Stable punctate calcification within the left deep pelvis favors a phlebolith. Moderate osteoarthritis within the bilateral hips. Mild levoscoliosis of the lumbar spine. Round calcification within the left midabdomen superior to the left renal stent remains stable. This likely represents a vascular calcification. IMPRESSION: The bilateral ureteral stents appear in good position. No renal or ureteral calculi. Electronically signed by: Dusty Newsome M.D. 09/20/2016 12:30 PM Dictated Date/Time: 09/20/2016 12:28 PM The status of this report is Signed. Draft = Not yet reviewed or approved by Radiologist. Signed = Reviewed and approved by Radiologist. Impression Assessment and Plan 81 y/o female, with PMHx CKD stage III, multiple occurrences of BONNIE, CHF, HTN, s /p WA, DM II, UTI with MDRO including Klebsiella, presented to the ED because of BONNIE. h/o Multi-Drug Resistant Klebsiella Urinary Tract Infection with bilateral ureteral stents: - UA pending - R PICC line in place - IV Imipenem started empirically pending UA due to patients h/o complicated course of multiple UTI with klebsiella--> if UA dirty, consult ID -- NOTE: thought to have had reaction to Ertapenem during last admission - Renal US pending to evaluate stent patency - Urology consulted- appreciate recommendations -- Cysto and bilateral stent exchange by Dr. Reeves on 08/21 BONNIE w/ Cr. of 5.7 on CKD stage IV, ?secondary to dehydration/vs UTI/stent obstruction- baseline approx 3.1-3.2-: - IV NSS @ 80 ml/hr - Nephrotoxic medications avoided and renally dose medications - Follow PRP - Follows w/ Dr. Corral Anemia of chronic disease: - Hgb stable - Follow CBC h/o C. Difficile Infection on chronic suppression therapy: - Continue Vancomycin 125 mg daily and Probiotic - Follows w/ Dr. Griffin Chronic systolic CHF with/out exacerbation/hx of WA: - Echo (2016) - EF 35-40% completed during last admission - Continue Carvedilol 25 mg BID and Plavix 75 mg daily DVT PPx: Heparin sq BID, CODI/SCDs CODE STATUS: LEVEL I, FULL Disposition: From home, lives with - has home health services. PT/OT consulted- patient has declined placement during past admission PA Physician Supervision Note: I interviewed and examined the patient. Discussed with Celina Alvarez PAC and agree with findings and plan as documented in the note. Any exceptions or clarifications are listed here: None This pt presents with metabolic encephalopathy from urinary source with history of ureteral stents( last changed 6 weeks ago) and multi drug resistant uti. pt is pleasantly confused, is at bedside vitals are noted car is regular lungs are clear abd is soft and non tender 81 F with metabolic encephalopathy , acute renal failure on CKD3 with concern for concurrent infection, will imipenem and urology consult Documented By: Oniel Naik Level of Care Med/Surg Resuscitation Status FULL RESUSCITATION VTE Prophylaxis VTE Risk Assessment Done? Y/N: Yes Risk Level: Moderate Given or contraindicated: Unfractionated heparin SQ, T.E.D. Stockings, SCD's
[2016-09-20 14:30] LABS: MANUAL MICROSCOPIC REQUIRED? YES; REVIEW REQ? NO; SULFASALICYLIC ACID POS (NEG); URINE APPEARANCE TURBID (CLEAR)
[2016-09-20 14:32] LABS: URINE COLOR RED
[2016-09-20 14:36] LABS: URINE WBC >30 /hpf (0-5)
[2016-09-20 14:37] LABS: URINE BACTERIA 2+ (NEG); URINE RBC >30 /hpf (0-4)
[2016-09-20] MEDS ORDERED: FURO-85 PO (14:44)
[2016-09-20] MEDS ORDERED: SODI650T8 PO (14:44)
--- NOTE | 2016-09-20 14:57 | EMERGENCY ROOM VISIT NOTE ---
History Report prepared by Harrison: Cinthia Abdullahi Under the Supervision of: Dr. Oniel Crook M.D. First contact with patient: 11:51 Chief Complaint: ABNORMAL LABS Stated Complaint: REFERRED History of Present Illness The patient is a 81 year old female who presents to the Emergency Room per physician referral to be evaluated for abnormal lab work this morning. The patient had blood work drawn from her PICC line at home this morning and her creatinine was elevated at 5.7. She was sent here for hospitalization. The patient was admitted August 23 for weakness, chronic kidney disease, heart failure. She had a cystoscopy and bilateral ureteral stent exchange by Dr. Reeves. She also had a UTI with MDRO including Klebsiella. She was discharged with Imipenem through her PICC line. There is currently concern that one of her ureteral stents is blocked. She has been making urine. She does not have a catheter. Per patient's , he has not noticed any evidence of a UTI. Currently, the patient's states that she feels lousy, tired, and does not have an appetite. She has not eaten in the past few days. Her vitals have been normal recently. Her notes that her potassium and sodium have been high. Denies fever, vomiting, abdominal pain, urinary symptoms, or other complaints. Source of History: patient, spouse/significant other Onset: today Position: other (global) Symptom Intensity: creatinine of 5.7 Quality: other (abnormal blood work) Timing: constant Associated Symptoms: + fatigue, No abdominal pain, No fevers, No urinary symptoms, No vomiting Note: Other symptoms: decreased appetite Review of Systems See HPI for pertinent positives & negatives. A total of 10 systems reviewed and were otherwise negative. Past Medical & Surgical Medical Problems: (1) Acute hypernatremia (2) Acute kidney injury (3) Acute on chronic renal failure (4) Acute renal failure superimposed on stage 4 chronic kidney disease (5) Acute urinary tract infection (6) Anemia (7) Benign hypertension (8) Cardiac catheterization (9) CHF (congestive heart failure) (10) CHF (congestive heart failure) (11) Cholecystectomy (12) Chronic kidney disease (13) CKD (chronic kidney disease) stage 5, GFR less than 15 ml/min (14) Coronary artery disease (15) Dehydration (16) Diabetes (17) Ischemic cardiomyopathy (18) Metabolic acidosis (19) Metabolic acidosis with increased anion gap and reduced excretion of inorganic acids (20) Myocardial infarction (21) Pneumonia (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 (23) Recurrent UTI (24) Secondary hyperparathyroidism of renal origin (25) Sepsis (26) Sepsis due to Klebsiella (27) sepsis recurrent UTI BONNIE on ckd (28) Systolic CHF (29) UTI (urinary tract infection) (30) UTI (urinary tract infection) (31) UTI (urinary tract infection) (32) UTI, altered mental status (33) Weakness Surgical Problems: (1) History of cholecystectomy (2) History of ureter stent Family History Other cardiovascular diseases Social History Smoking Status: Never Smoker Alcohol Use: none Drug Use: none Marital Status: Housing Status: lives with significant other Occupation Status: retired Current/Historical Medications Scheduled Aspirin (Aspirin), 81 MG PO QPM Atorvastatin (Lipitor), 80 MG PO QPM Carvedilol (Carvedilol), 25 MG PO BID Cholecalciferol (Vitamin D3), 1 TAB PO DAILY Clopidogrel Bisulfate (Clopidogrel), 75 MG PO QPM Febuxostat (Uloric), 40 MG PO NOON Furosemide (Lasix), 20 MG PO QAM Loteprednol Etabonate (Lotemax), 1 DROP OPB QAM Multiple Vitamins W/ Minerals (Centrum Silver Ultra [place]), 1 TAB PO QAM Nystatin (Nystop), 1 DOSE TOP BID Pantoprazole (Pantoprazole Sodium), 40 MG PO QAM Probiotic Product (Probiotic), 1 TAB PO QPM Sodium Bicarbonate (Sodium Bicarbonate), 1 TAB PO QAM Vancomycin Hcl (Vancomycin), 125 MG PO QAM Scheduled PRN Lorazepam (Ativan), 0.5 MG PO Q6H PRN for Anxiety Ondasetron Odt (Zofran Odt), 4 MG PO Q6H PRN for Nausea Allergies Coded Allergies: Sulfa Antibiotics (Verified Allergy, Intermediate, BODY SWELLING,NAUSEA AND VOMITNG, 09/20/16) Penicillins (Verified Allergy, Unknown, Tolerates Primaxin, 09/20/16) PER PCP RECORDS Physical Exam Vital Signs Date Time Temp Pulse Resp B/P Pulse Ox O2 Delivery O2 Flow Rate FiO2 09/20/16 11:49 Nasal Cannula 2.0 09/20/16 11:39 36.6 72 20 107/61 100 Nasal Cannula 2.0 Physical Exam Constitutional: Vital signs reviewed. Eyes: Pupils are equal round reactive to light. Conjunctiva are noninjected. ENT: Pharynx is clear without erythema or exudate. Mucous membranes are moist. Neck supple without meningeal signs. Respiratory: Clear to auscultation bilaterally. Breath sounds are equal bilaterally. Cardiovascular: Regular rate and rhythm. No rubs or gallops. GI: Soft, nondistended and nontender. Bowel sounds are present. Musculoskeletal: No peripheral edema. No lower extremity tenderness. PICC line in the right upper extremity. Integumentary: No cyanosis. Neurological: The patient is awake and alert. No focal deficits. Psychiatric: Normal affect. Medical Decision & Procedures ER Provider Diagnostic Interpretation: Radiology results as stated below per my review and the radiologist's interpretation: KUB HISTORY: eval urinary stents COMPARISON: KUB 06/12/2016. FINDINGS: The bowel gas pattern is unremarkable. There are no dilated loops of small bowel to suggest an obstruction. No renal calculi. No ureteral calculi. Cholecystectomy. Bilateral ureteral stents appear to be in good position. Stable punctate calcification within the left deep pelvis favors a phlebolith. Moderate osteoarthritis within the bilateral hips. Mild levoscoliosis of the lumbar spine. Round calcification within the left midabdomen superior to the left renal stent remains stable. This likely represents a vascular calcification. IMPRESSION: The bilateral ureteral stents appear in good position. No renal or ureteral calculi. Electronically signed by: Dusty Newsome M.D. 09/20/2016 12:30 PM Dictated Date/Time: 09/20/2016 12:28 PM Laboratory Results Test 09/20/16 12:45 Urine Color RED Urine Appearance TURBID (CLEAR) Urine pH (4.5-7.5) Urine Specific [place] (1.000-1.030) Urine Protein POS (NEG) Urine Glucose (UA) (NEG) Urine Ketones (NEG) Urine Occult Blood (NEG) Urine Nitrite (NEG) Urine Bilirubin (NEG) Urine Urobilinogen (NEG) Urine Leukocyte Esterase (NEG) Urine RBC >30 /hpf (0-4) Urine WBC >30 /hpf (0-5) Urine Epithelial Cells 0-5 /lpf (0-5) Urine Bacteria 2+ (NEG) Medications Administered Medications (Trade) Dose Ordered Sig/Helder Route Start Time Stop Time Status Last Admin Dose Admin Sodium Chloride (Nss 500ml) 500 ml @ 999 mls/hr Q31M STAT IV 09/20/16 12:00 09/20/16 12:30 DC 09/20/16 12:00 999 MLS/HR ED Course 1156: The patient was evaluated in room B12. A complete history and physical exam was performed. I discussed the treatment plan with the patient and her . They were in agreement. 1200: Ordered NSS 500 ml @ 999 mls/hr IV. 1251: I discussed the case with Dr. Heena LOPEZ Hospitalist. The patient will be evaluated for further management. Medical Decision This is an 81-year-old female who presents with abnormal lab tests. I did perform a limited focused review of portions of the patient's old chart on the electronic medical record. She was admitted August 23 for weakness, chronic kidney disease, heart failure. She had a cystoscopy and bilateral ureteral stent exchange by Dr. Reeves. She also had a UTI with MDRO including Klebsiella. She was discharged with Imipenem through her PICC line. Today, she had a creatinine of 5.7 done at 7AM. Her BUN was 138. I did evaluate the patient as noted above. I did order and personally review the patient's KUB x-ray as described above. Urinary stents were in place. I did order a urinalysis which is pending. The patient was given normal saline IV. I did discuss the case with the hospitalist and caseworker intake for hospitalization and further care. Consults Time Called: 1248 Consulting Physician: Dr. Heena LOPEZ Hospitalist Returned Call: [phone] I discussed the case with him. The patient will be evaluated for further management. Impression Primary Impression: Acute on chronic renal failure Additional Impression: Generalized weakness Scribe Attestation The scribe's documentation has been prepared under my direct and personally reviewed by me in its entirety. I confirm that the note above accurately reflects all work, treatment, procedures, and medical decision making performed by me. Departure Information Dispostion Being Evaluated By Hospitalist Referrals Jan Cervantes M.D. (PCP) Patient Instructions [facility] Problem Qualifiers
[2016-09-20 15:07] VITALS: BP 104/60; PULSE 69; TEMP 36.4; O2SAT 100
[2016-09-20] MEDS: SODIUM CHLORIDE 0.9% 1000ML 1,000 ML IV SCH (15:18)
[2016-09-20] MEDS: FEBUXOSTAT 40 MG TAB PO SCH (15:35)
[2016-09-20] MEDS: LOTEMAX~ORDER AWAITING ACTION SCH (16:15)
[2016-09-20 16:26] LABS: INR 1.1 (0.9-1.1); PROTHROMBIN TIME (PATIENT) 12.2 SECONDS (9.0-12.0)
[2016-09-20 16:53] VITALS: Ht 162.6 cm; Wt 61.0 kg
--- NOTE | 2016-09-20 17:17 | DIAGNOSTIC IMAGING REPORT ---
EXAMINATION: RENAL ULTRASOUND CLINICAL HISTORY: Bilateral ureteral stents. Evaluate for hydronephrosis. COMPARISON STUDY: 04/16/2016 FINDINGS: The right kidney measures 10.2 cm. The left kidney measures 9 cm. There is moderate bilateral hydronephrosis. There is bilateral renal cortical thinning more severe in the right. Bilateral left ureteral stents are visualized. There are no renal masses. The bladder was nearly empty at the time of scanning. The distal aspect of both ureteral stents was visualized in the bladder. IMPRESSION : 1. Significantly limited study from a technical standpoint, as the patient was uncooperative 2. Moderate bilateral hydronephrosis with bilateral renal cortical thinning. 3. Bilateral nephroureteral stents are visualized Electronically signed by: Gagan Joel M.D. 09/20/2016 5:15 PM Dictated Date/Time: 09/20/2016 5:13 PM
[2016-09-20 20:45] VITALS: BP 127/82; PULSE 76
[2016-09-20] MEDS: ATORVASTATIN 40 MG TAB PO SCH (20:49)
[2016-09-20] MEDS: CLOPIDOGREL BISULFATE 75 MG TAB PO SCH (20:49)
[2016-09-20] MEDS: CARVEDILOL 25 MG TAB PO SCH (20:49)
[2016-09-20] MEDS: ASPIRIN 81 MG ECTAB PO SCH (20:49)
[2016-09-20] MEDS: NYSTATIN POWDER 15GM BTL EXT SCH (20:50)
[2016-09-20] MEDS: HEPARIN SOD 5000 UNIT/0.5 ML CARP SQ SCH (20:59)
[2016-09-20] MEDS ORDERED: NON-FORMULARY MEDICATION (Probiotic Product (Probiotic) 1 TAB) PO SCH (21:00)
[2016-09-21 00:32] VITALS: BP 126/68; PULSE 87; TEMP 36.9; O2SAT 95
[2016-09-21] MEDS: SODIUM CHLORIDE 0.9% 1000ML 1,000 ML IV SCH ×2 (04:43→13:51)
[2016-09-21 06:21] LABS: MEAN CORPUSCULAR HEMOGLOBIN 30.9 pg (25-34); MEAN CORPUSCULAR HGB CONC 32.9 g/dl (32-36); MEAN PLATELET VOLUME 9.7 fL (7.4-10.4); PLATELET COUNT 140 K/uL (130-400); RED BLOOD COUNT 2.98 M/uL (4.2-5.4); WHITE BLOOD COUNT 9.03 K/uL (4.8-10.8)
[2016-09-21 07:17] VITALS: BP 124/59; PULSE 78; TEMP 36.4; O2SAT 99
[2016-09-21 07:29] LABS: BUN/CREATININE RATIO 22.9 (10-20); CALCIUM 8.6 mg/dl (8.5-10.1); CREATININE 5.2 mg/dl (0.60-1.20); MAGNESIUM 2.2 mg/dl (1.8-2.4); POTASSIUM 4.5 mmol/L (3.5-5.1)
[2016-09-21] MEDS: ONDANSETRON INJ 2 MG/ML 2 ML VIAL IV PRN (08:01)
--- NOTE | 2016-09-21 08:24 | Clinical Documentation Query ---
CLINICAL DOCUMENTATION QUERY Dr. WRAY, In your clinical opinion is this patient being managed for: ( x ) Chronic kidney disease, stage 4-5 ( ) Other explanation of clinical findings (Please Explain) ( ) Unable to determine (Please Define) ( ) Need to Discuss ( ) Not Agree The medical record reflects the following clinical findings, treatment, and risk factors. Clinical Indicators: 81 yo female presenting with BONNIE. Discrepancy exists in the clinical documentation re: stage of CKD. It includes stage 3 and stage 4. Review of GFR over the past year shows range of 6.3-24.1. Treatment: monitor PRP's, treat episodes of BONNIE, AHA/renal diet Risk Factors: age, chronic systolic CHF, HTN, LA, DM, chronic UTI's The stages of CKD according to the [employer] are as follows: Stage I: GFR >90 Stage II: GFR 60-89 Stage III: GFR 30-59 Stage IV: GFR 15-29 Stage V: GFR <15 Please clarify and document your clinical opinion in the progress notes and discharge summary. Terms such as "probable", "suspected", "likely", "questionable", "possible", or "still to be ruled out" are acceptable. IF IN AGREEMENT, YOU MUST DOCUMENT ABOVE DIAGNOSTIC STATEMENT IN DAILY PROGRESS NOTES AND DISCHARGE SUMMARY. This document is not part of the patient's record. Thank You, Franny Viera, RN [phone]
[2016-09-21] MEDS ORDERED: IMIPENEM/CILASTATIN IV 500 MG in DEXTROSE 5% 100ML 100 ML IV SCH (08:45)
[2016-09-21] MEDS: VANCOMYCIN HCL 125 MG/2.5ML SOLN PO SCH (08:54)
[2016-09-21] MEDS: CEROVITE ADV FORMULA TAB PO SCH (08:55)
[2016-09-21] MEDS: RASPBERRY SYRUP 5 ML UDP PO SCH (08:55)
[2016-09-21] MEDS: CHOLECALCIFEROL 1000 INTER.UNIT TAB PO SCH (08:56)
[2016-09-21] MEDS: LOTEMAX~ORDER AWAITING ACTION SCH ×3 (08:57→16:00)
[2016-09-21] MEDS: CARVEDILOL 25 MG TAB PO SCH ×2 (08:57→22:16)
[2016-09-21] MEDS: NYSTATIN POWDER 15GM BTL EXT SCH ×2 (08:57→22:08)
[2016-09-21] MEDS: PANTOprazole SOD 40 MG TAB PO SCH (08:57)
[2016-09-21] MEDS: HEPARIN SOD 5000 UNIT/0.5 ML CARP SQ SCH ×2 (09:00→21:00)
[2016-09-21] MEDS: ONDANSETRON 4MG OD TAB PO SCH (09:59)
[2016-09-21] MEDS ORDERED: NURSING VERBAL MED ORDER ONE (10:00)
[2016-09-21] MEDS ORDERED: CEFEPIME CONSULT ACTIVE PRN ×2 (10:18)
--- NOTE | 2016-09-21 10:22 | Progress Note ---
Subjective Date of Service: Sep 21, 2016. Subjective Pt evaluation today including: physical exam, chart review, lab review, review of studies Voiding: incontinence 81 year old female well known to our service. She has hx of renal failure, hydroureteronephrosis and recurrent UTIs. She recently had bilateral stent exchange on 08/21/[address] Reeves. Admitted for elevated creatinine- 5.9 Discussed with her caregiver- she has been declining over the past few weeks, wt loss, loss of appetite, increase fatigue. was not present during visit this am. Receiving IV hydration and IV Imipenem Prelim urine culture showing EColi. She has had many recent hospitalization for acute on chronic renal failure. Often improves after treated with IV fluids. ureteral stents have made little difference in the outcome of her renal insufficiency. Pt denies any flank pain. KUB shows good stent placement. Renal u/s shows bilateral hydro- baseline for pt. Problem List Medical Problems: (1) Acute on chronic kidney failure Status: Acute (2) Acute renal failure Status: Acute (3) Altered mental status Status: Acute (4) Altered mental status Status: Acute (5) ARF (acute renal failure) Status: Acute (6) CRD (chronic renal disease) Status: Acute (7) Dehydration Status: Acute (8) Dehydration Status: Acute (9) Fever Status: Acute (10) Generalized weakness Status: Acute (11) Hyperkalemia Status: Acute (12) Hyperkalemia Status: Acute (13) Hypomagnesemia Status: Acute (14) PICC (peripherally inserted central catheter) in place Status: Acute (15) Pneumonia Status: Acute (16) Renal failure Status: Acute (17) Renal insufficiency Status: Acute (18) Renal insufficiency Status: Acute (19) Sepsis Status: Acute (20) Sepsis Status: Acute (21) Uremia Status: Acute (22) UTI (urinary tract infection) Status: Acute (23) UTI (urinary tract infection) Status: Acute (24) UTI (urinary tract infection) Status: Acute (25) Weakness Status: Acute (26) Weakness Status: Acute (27) Weakness Status: Acute (28) Weakness Status: Acute (29) Weakness Status: Acute Review of Systems Constitutional: No chills, No fever Eyes: No worsening of vision ENT: No hearing loss Respiratory: No cough, No shortness of breath Cardiac: No chest pain Abdomen: No nausea, No pain Female : + see HPI Neurologic: + memory loss Endo: + fatigue Objective Vital Signs Date Time Temp Pulse Resp B/P Pulse Ox O2 Delivery O2 Flow Rate FiO2 09/21/16 07:17 36.4 78 18 124/59 99 Nasal Cannula 2.0 09/21/16 00:32 36.9 87 18 126/68 95 2.0 09/21/16 00:00 Nasal Cannula 2.0 09/20/16 20:45 76 127/82 09/20/16 20:00 Nasal Cannula 2.0 09/20/16 16:53 Nasal Cannula 2.0 09/20/16 15:07 36.4 69 18 104/60 100 Nasal Cannula 2.0 09/20/16 14:11 70 16 89/36 100 Room Air 09/20/16 11:49 Nasal Cannula 2.0 09/20/16 11:39 36.6 72 20 107/61 100 Nasal Cannula 2.0 Physical Exam General Appearance: WD/WN, no apparent distress ENT: hearing grossly normal Respiratory/Chest: no respiratory distress, no accessory muscle use Neurologic/Psychiatric: alert Laboratory Results Last 24 Hours Test 09/20/16 12:45 09/20/16 15:42 09/21/16 05:50 Urine Color RED Urine Appearance TURBID Urine pH Urine Specific [place] Urine Protein POS Urine Glucose (UA) Urine Ketones Urine Occult Blood Urine Nitrite Urine Bilirubin Urine Urobilinogen Urine Leukocyte Esterase Urine RBC >30 /hpf Urine WBC >30 /hpf Urine Epithelial Cells 0-5 /lpf Urine Bacteria 2+ Prothrombin Time 12.2 SECONDS Prothromb Time International Ratio 1.1 Activated Partial Thromboplast Time 25.8 SECONDS Partial Thromboplastin Ratio 1.0 White Blood Count 9.03 K/uL Red Blood Count 2.98 M/uL Hemoglobin 9.2 g/dL Hematocrit 28.0 % Mean Corpuscular Volume 94.0 fL Mean Corpuscular Hemoglobin 30.9 pg Mean Corpuscular Hemoglobin Concent 32.9 g/dl RDW Standard Deviation 56.6 fL RDW Coefficient of Variation 16.4 % Platelet Count 140 K/uL Mean Platelet Volume 9.7 fL Sodium Level 147 mmol/L Potassium Level 4.5 mmol/L Chloride Level 120 mmol/L Carbon Dioxide Level 14 mmol/L Anion Gap 13.0 mmol/L Blood Urea Nitrogen 119 mg/dl Creatinine 5.20 mg/dl Est Creatinine Clear Calc Drug Dose 7.1 ml/min Estimated GFR () 8.2 Estimated GFR (Non- 7.1 BUN/Creatinine Ratio 22.9 Random Glucose 114 mg/dl Calcium Level 8.6 mg/dl Magnesium Level 2.2 mg/dl Assessment and Plan Acute on chronic renal failure Hydroureteronephrosis Bilateral ureteral stent exchange 1 month ago. KUB shows good stent placement. Renal u/s shows bilateral hydro which is baseline for this pt. Urine culture prelim + for EColi on IV imipenem Discussed case with Dr. Reeves- Do not suspect stent encrustation or obstructive uropathy at this time. No surgical urological intervention needed at this time. Thanks for the consult. Will continue to follow along with primary service.
[2016-09-21] MEDS ORDERED: CEFEPIME IV 1,000 MG in DEXTROSE 5% 100ML IV ONE (11:00)
--- NOTE | 2016-09-21 11:18 | Progress Note ---
Progress Note Date of Service Sep 21, 2016. Progress Note ID Consult Dictated #[id number] A/P: 1. UTI - E. coli -continue cefepime for now, pending additional culture data -continue po vanco with h/o c diff -will follow, thank you
--- NOTE | 2016-09-21 11:43 | INFECT. DISEASE CONSULTATION ---
DATE OF CONSULTATION: 09/21/2016 REQUESTING PHYSICIAN: Oniel Naik MD HISTORY OF PRESENT ILLNESS: This is an 81-year-old female who was admitted from home after her outpatient blood work showed that her creatinine had increased to 5.7. Her is at the bedside. On my examination and states that her appetite has been poor and she has had very little oral intake over the past few weeks. She does admit to some occasional loose stools, but does not admit to any diarrhea. She did have a urinalysis done on arrival to the ER, which showed greater than 30 wbc's with +2 bacteria. Her urine culture is preliminary growing E. coli. The sensitivities are back at this time. She did have an ultrasound of her kidneys done yesterday in the ER, which showed bilateral hydronephrosis and stents. She is following with urology. She recently had a stent change on 08/21/2016. She tolerated this well. Her most recent urine cultures are from July of this year, all those have grown Klebsiella. She has not had E. coli in the urine for some time. She has been afebrile since admission to the hospital. She was initially on imipenem and then changed to cefepime. Her white blood cell count was normal at 9.0. Her creatinine this morning is 5.2. Her last creatinine done on September 13 was 3.8. She is out of bed to chair and working with physical therapy on my examination. She denies any pain. She denies any fevers or chills. Her states that she takes her vital signs a daily basis and she has not had any fevers recently. She denies any chest pain, cough or shortness of breath. She overall feels fatigued. All remaining review of symptoms are reviewed and negative. PAST MEDICAL HISTORY: Significant for chronic kidney disease with a baseline creatinine documented at 2.1. Her most recent creatinine was on September 13 and was 3.8. It has increased to 5.2 today. Bilateral ureteral obstruction with stent placements initially in June of 2014. Fecal incontinence, urinary incontinence, cystitis, cardiomyopathy, AICD placement, high cholesterol, history of C. diff colitis, obesity, and debilitation. PAST SURGICAL HISTORY: Significant for AICD placement, bilateral ureteral stents, corneal transplant, cholecystectomy, and appendectomy. FAMILY HISTORY: Noncontributory. SOCIAL HISTORY: Negative for tobacco use, alcohol or drug use. She is and lives with her who is her primary caregiver. ALLERGIES: SHE IS ALLERGIC TO SULFA ANTIBIOTICS AND PENICILLINS. CURRENT MEDICATIONS: Include cefepime, Procrit, calcitriol, Zofran, vitamin D, multivitamins, Protonix, oral vancomycin, subQ heparin, aspirin, atorvastatin, Coreg, Plavix, nystatin powder, Uloric, Tylenol, Maalox, milk of magnesia, MiraLax, Zofran, and Ativan. PHYSICAL EXAMINATION: VITAL SIGNS: She is afebrile, pulse 78, respiratory rate is 18, blood pressure is 124/59, and oxygen saturation is 99% on 2 liters nasal cannula. GENERAL: She is awake, alert and oriented x3. She is out of bed to chair. She is in no acute distress. HEART: Regular. LUNGS: Clear. ABDOMEN: Soft, nontender, nondistended. There is no edema. SKIN: Without rash. LABORATORY STUDIES: CBC today reveals a white blood cell count of 9.0 down from 11.2 yesterday, hemoglobin is 9.2, platelets are 140. Chemistry panel reveals a sodium of 147, potassium 4.5, chloride 120, bicarbonate 14, BUN 119, creatinine 5.2, improved from 5.7 yesterday, glucose is 114, again urinalysis shows greater than 30 red cells, greater than 30 white cells, 2+ bacteria, and positive protein. Urine culture is growing E. coli, sensitivities are pending. IMAGING: As previously reviewed. ASSESSMENT AND PLAN: Urinary tract infection in a patient with bilateral ureteral stents. She will remain on empiric cefepime pending the results of urine cultures. She should also remain on oral vancomycin with her history of recurrent C. diff. We will follow along with you. Thank you for this consultation.
[2016-09-21] MEDS ORDERED: EPOETIN ALFA 10,000 UNITS/ML VIAL SQ SCH (12:00)
[2016-09-21] MEDS: CALCITRIOL 0.25 MCG CAP PO SCH (12:15)
[2016-09-21] MEDS: FEBUXOSTAT 40 MG TAB PO SCH (12:15)
--- NOTE | 2016-09-21 13:35 | Family Medicine Progress Note ---
Progress Note Date of Service Sep 21, 2016. Subjective Pt evaluation today including: conversation w/ patient, conversation w/ family (), physical exam, chart review, lab review, review of studies Pain: none Brief history reviewed. Patient provides minimal history, defers to . states that for the past week, patient has not been herself. Appetite is been poor and intake has been poor as well. He has not measured fevers. He is quite judiciously measuring her vital signs. Abdominal and her primary manager office services checked routine lab work yesterday noted a creatinine of 5.2, rate of than her baseline of 2.1 therefore referred her for admission. At present she denies pain. She denies shortness of breath. She does not have coughing, chest pain, palpitations. She does not feel lightheaded. No nausea or vomiting, diarrhea or constipation. All Other Systems: Reviewed and Negative Medications Current Inpatient Medications Medications (Trade) Dose Ordered Sig/Helder Route Start Time Stop Time Status Last Admin Dose Admin Acetaminophen (Tylenol Tab) 650 mg Q4H PRN PO 09/20/16 13:15 10/20/16 13:14 Al Hydrox/Mg Hydrox/Simethicone (Maalox Max Susp) 15 ml Q4H PRN PO 09/20/16 13:15 10/20/16 13:14 Magnesium Hydroxide (Milk Of Magnesia Susp) 30 ml Q6H PRN PO 09/20/16 13:15 10/20/16 13:14 Polyethylene (Miralax Powder Packet) 17 gm DAILY PRN PO 09/20/16 13:15 10/20/16 13:14 Ondansetron HCl (Zofran Inj) 4 mg Q6H PRN IV 09/20/16 13:15 10/20/16 13:14 09/21/16 08:01 4 MG Heparin Sodium (Porcine) (Heparin Sq 5000 Unit/0.5ml) 5,000 unit Q12H SQ 09/20/16 21:00 10/20/16 20:59 09/21/16 09:00 5,000 UNIT Aspirin (Ecotrin Tab) 81 mg QPM PO 09/20/16 21:00 10/20/16 20:59 09/20/16 20:49 81 MG Atorvastatin Calcium (Lipitor Tab) 80 mg QPM PO 09/20/16 21:00 10/20/16 20:59 09/20/16 20:49 80 MG Carvedilol (Coreg Tab) 25 mg BID PO 09/20/16 21:00 10/20/16 20:59 09/21/16 08:57 25 MG Cholecalciferol (Vitamin D Tab) 1,000 inter.unit DAILY PO 09/21/16 09:00 10/21/16 08:59 09/21/16 08:56 1,000 INTER.UNIT Clopidogrel Bisulfate (plAVix TAB) 75 mg QPM PO 09/20/16 21:00 10/20/16 20:59 09/20/16 20:49 75 MG Lorazepam (Ativan Tab) 0.5 mg Q6H PRN PO 09/20/16 13:15 10/20/16 13:14 Multivitamins/ Minerals (Multivitamin W/ Minerals Tab) 1 tab QAM PO 09/21/16 09:00 10/21/16 08:59 09/21/16 08:55 1 TAB Nystatin (Mycostatin Powder) 1 appln BID EXT 09/20/16 21:00 10/20/16 20:59 09/21/16 08:57 1 APPLN Pantoprazole Sodium (Protonix Tab) 40 mg QAM PO 09/21/16 09:00 10/21/16 08:59 09/21/16 08:57 40 MG Vancomycin HCl (Vancomycin Oral Soln) 125 mg QAM PO 09/21/16 09:00 10/21/16 08:59 09/21/16 08:54 125 MG Febuxostat (Uloric) 40 mg DAILY@1200 PO 09/20/16 14:30 10/20/16 14:29 09/21/16 12:15 40 MG Miscellaneous Information 1 ea 1 ea QS N/A 09/20/16 16:15 10/20/16 16:14 Sodium Chloride (Nss 1000ml) 1,000 ml @ 80 mls/hr [id number] IV 09/20/16 13:15 10/20/16 13:14 09/21/16 04:43 80 MLS/HR Raspberry (Raspberry Syrup 5ml Cup) 5 ml QAM PO 09/21/16 09:00 10/05/16 08:59 09/21/16 08:55 5 ML Miscellaneous Information (Order Awaiting Action) 1 ea QS N/A 09/20/16 16:00 10/20/16 15:59 Heparin Sodium (Porcine) (Heparin 10 Unit/ ml 5 ml Flush) 5 ml PRN PRN FLUSH 09/20/16 23:45 10/20/16 23:44 Ondansetron HCl (Zofran Odt) 4 mg DAILYBB PO 09/21/16 09:59 10/21/16 09:58 Cefepime HCl (Consult) 1 ea UD PRN N/A 09/21/16 10:18 10/21/16 10:17 Calcitriol 0.25 mcg 0.25 mcg MoWeFr@0900 PO 09/21/16 11:00 10/21/16 10:59 09/21/16 12:15 0.25 MCG Cefepime HCl/ Dextrose (Maxipime IV/D5 100ml) 101.5625 ml @ 222.6 mls/hr Q24H IV 09/22/16 11:00 09/30/16 11:28 Sodium Bicarbonate (Sodium Bicarbonate Tab) 650 mg DAILY PO 09/22/16 09:00 10/22/16 08:59 Objective Vital Signs Date Time Temp Pulse Resp B/P Pulse Ox O2 Delivery O2 Flow Rate FiO2 09/21/16 08:00 Nasal Cannula 1.0 09/21/16 07:17 36.4 78 18 124/59 99 Nasal Cannula 2.0 09/21/16 00:32 36.9 87 18 126/68 95 2.0 09/21/16 00:00 Nasal Cannula 2.0 09/20/16 20:45 76 127/82 09/20/16 20:00 Nasal Cannula 2.0 09/20/16 16:53 Nasal Cannula 2.0 09/20/16 15:07 36.4 69 18 104/60 100 Nasal Cannula 2.0 09/20/16 14:11 70 16 89/36 100 Room Air Physical Exam General Appearance: WD/WN, no apparent distress Eyes: normal inspection, EOMI ENT: hearing grossly normal, pharynx normal Neck: supple, no adenopathy, no JVD Respiratory/Chest: lungs clear, no respiratory distress Cardiovascular: regular rate, rhythm, no gallop, no murmur Abdomen: normal bowel sounds, non tender, soft Extremities: non-tender, no pedal edema Neurologic/Psychiatric: alert, oriented x 3, + pertinent finding (flat affect, defers most questions to ) Skin: normal color, warm/dry, no rash Lymphatic: no adenopathy Laboratory Results Last 24 Hours Test 09/20/16 15:42 09/21/16 05:50 Prothrombin Time 12.2 SECONDS Prothromb Time International Ratio 1.1 Activated Partial Thromboplast Time 25.8 SECONDS Partial Thromboplastin Ratio 1.0 White Blood Count 9.03 K/uL Red Blood Count 2.98 M/uL Hemoglobin 9.2 g/dL Hematocrit 28.0 % Mean Corpuscular Volume 94.0 fL Mean Corpuscular Hemoglobin 30.9 pg Mean Corpuscular Hemoglobin Concent 32.9 g/dl RDW Standard Deviation 56.6 fL RDW Coefficient of Variation 16.4 % Platelet Count 140 K/uL Mean Platelet Volume 9.7 fL Sodium Level 147 mmol/L Potassium Level 4.5 mmol/L Chloride Level 120 mmol/L Carbon Dioxide Level 14 mmol/L Anion Gap 13.0 mmol/L Blood Urea Nitrogen 119 mg/dl Creatinine 5.20 mg/dl Est Creatinine Clear Calc Drug Dose 7.1 ml/min Estimated GFR () 8.2 Estimated GFR (Non- 7.1 BUN/Creatinine Ratio 22.9 Random Glucose 114 mg/dl Calcium Level 8.6 mg/dl Magnesium Level 2.2 mg/dl Assessment and Plan 81-year-old female, who presents with 1 week of malaise and decline, as well as increased creatinine suggestive of acute kidney injury. At this time the patient is not having any complaints, and is hemodynamically stable. Urine is remarkable for Escherichia coli, with pending cultures. is at the bedside. I had a chance to review this patient's history. As of this year alone she has been already admitted 4 times. I discussed with the goals of care, and he states that he was to continue treating her with antibiotics as she needs it. He doesn't like her to be in the hospital, but says "whatever it takes". I'm concerned that a referral state, he has unrealistic expectations about her recovery. We may be able to treat her underlying urinary tract infection on this admission, but based on previous history I suspect that this is going to be an ongoing recurrent issue for her and I'm concerned that every time we give her course of antibiotics we cannot bring her back to her baseline. Her problem list includes: - BONNIE on CKD III - E coli UTI, with background of MDR Klebsiella - CHF with reduced ejection fraction - Hx of CA/CAD - Hypertension Our plan for her is as follows: Acute Kidney Injury - On background of chronic kidney injury stage III; baseline creatinine 2.1 - Follows with Dr. Corral from nephrology Nephrology to be consultative for further recommendations - Hydronephrosis persists on renal ultrasound - Patient is status post bilateral stent exchange by urology; we will consult him for further recommendations - Patient has a history of recurrent UTIs; hydronephrosis likely has a chronic component secondary to obstructive uropathy - We'll trend BMP daily - Avoid nephrotoxic medications E.coli Urinary tract infection - Patient was given imipenem, on the basis that organism may be Klebsiella. His cultures of shown - Culture result shows Escherichia coli - Start IV cefepime - Infectious diseases team has been consultative for further recommendations Metabolic alkalosis - Bicarbonate 14 - Patient will be started on by mouth bicarbonate this time; will monitor daily BMP - Nephrology is been consultative, recommendations appreciated Anemia of chronic disease - Hgb remained stable - Continue to follow; check daily CBC Chronic suppressive therapy for C.diff - Continue Vancomycin 125 mg daily and Probiotic - Infectious diseases is consult on the case Chronic systolic CHF with/out exacerbation/hx of CA - Most recent echo on 05/2016 shows mildly reduced ejection fraction 35-40% - Continue home dose of carvedilol - ACEi and ARB are both contraindicated due to acute on kidney injury History of CA/coronary artery disease - Continue aspirin and Plavix - Continue atorvastatin - Continue carvedilol DVT prophylaxis - Heparin sq BID - CODI/SCDs Code Status - Level I Code Disposition - PT and OT to be consultative - The patient and her do need to have a conversation about long-term goals of care. I am concerned that intercurrent state even despite successful antibiotic treatment that it is likely that she will have recurrent hospitalizations secondary to multiple comorbidities above. Reviewed: Pt Seen/Exam by Me History sitting in chair. denies any complains Constitutional: denies: fever General Appearance: no apparent distress Respiratory: lungs clear, no respiratory distress Cardiovascular: regular rate, rhythm Neurologic/Psychiatric: alert, other (oriented to place and person) Skin Characteristics: warm/dry Assessment/Plan I have reviewed the medical record and performed a history and physical examination of this patient today. I have discussed the case with Dr. Ramsey. The above note reflects my findings, conclusions, and recommendations.
--- NOTE | 2016-09-21 13:49 | DIAGNOSTIC IMAGING REPORT ---
CHEST ONE VIEW PORTABLE CLINICAL HISTORY: PICC line placement confirmation COMPARISON STUDY: Chest radiograph August 18, 2016. FINDINGS: The tip of the right PICC projects over the cavoatrial junction. A left subclavian pacer/AICD is in place. There may be trace bilateral pleural effusions. There is no pneumothorax. There is no evidence of pulmonary edema. Cardiomegaly is noted. IMPRESSION: Tip of right PICC projects over cavoatrial junction. Electronically signed by: Mckinley Winkler M.D. 09/21/2016 1:47 PM Dictated Date/Time: 09/21/2016 1:43 PM
[2016-09-21] MEDS ORDERED: SOD CHLOR 14.6% 2.5MEQ/ML 38.5 MEQ, SODIUM BICARBONATE 8.4% INJ 100 MEQ in STERILE WATE... IV SCH (14:00)
--- NOTE | 2016-09-21 14:26 | Nephrology Consultation ---
Nephrology Consultation Date & Providers Date of Consultation: Sep 21, 2016. Primary Care Provider: Jan Cervantes M.D. Referring Provider: Reason for Consultation Evaluation and management for acute kidney injury and metabolic acidosis with history of advanced CKD. History of Present Illness Mrs Chase is a 81-year-old female with past medical history significant for advanced CKD, recurrent history of urinary tract infection, prior history of C diff, CHF with systolic dysfunction admitted to the hospital yesterday and after she was found to have acute kidney injury on routine follow-up lab. Nephrology consult was requested for management of acute kidney injury and electrolyte abnormality. Electronic medical records including labs and imaging are reviewed in detail during patient's visit. Tiana has history of recurrent urinary tract infection with MDRO, she has been following with Infectious Disease as an outpatient and recently was on Imipenem.. She has bilateral hydronephrosis and has ureteral stent placed which was exchanged on 08/21/2016. She was otherwise at her baseline and routine follow-up lab yesterday showed creatinine was 5.7 and she was advised to go to the ED. In the ED urinalysis positive for UTI and follow-up culture came back positive for E coli and she is currently on cefepime. Ultrasound in the ED showed bilateral moderate hydronephrosis, evaluated by Urology this morning and did not feel that her chronic hydronephrosis is contributing to the acute kidney injury and he commended no urological intervention at this time. creatinine this morning slightly improved to 5.2. She has been on IV hydration since admission. Blood pressure has been stable. Currently she is still profoundly weak and lethargy but denies any specific symptoms. Appetite has been poor. She has advanced chronic kidney disease, baseline creatinine has been around 2.5 -3.0, with frequent and recurrent episode of acute kidney injury in the setting urinary tract infection, obstructive uropathy, volume depletion and sepsis. Her primary stator winder is Dr. Corral. Previously patient and her made the decision not to consider renal replacement therapy in future and she is being managed conservatively. She has chronic bilateral hydronephrosis, has bilateral ureteral stent, previously percutaneous nephrostomy was recommended but her and patient decided not to have nephrostomy. Allergies Coded Allergies: Sulfa Antibiotics (Verified Allergy, Intermediate, BODY SWELLING,NAUSEA AND VOMITNG, 09/20/16) Penicillins (Verified Allergy, Unknown, Tolerates Primaxin, 09/20/16) PER PCP RECORDS Inpatient Medications Current Inpatient Medications Medications (Trade) Dose Ordered Sig/Helder Route Start Time Stop Time Status Last Admin Dose Admin Acetaminophen (Tylenol Tab) 650 mg Q4H PRN PO 09/20/16 13:15 10/20/16 13:14 Al Hydrox/Mg Hydrox/Simethicone (Maalox Max Susp) 15 ml Q4H PRN PO 09/20/16 13:15 10/20/16 13:14 Magnesium Hydroxide (Milk Of Magnesia Susp) 30 ml Q6H PRN PO 09/20/16 13:15 10/20/16 13:14 Polyethylene (Miralax Powder Packet) 17 gm DAILY PRN PO 09/20/16 13:15 10/20/16 13:14 Ondansetron HCl (Zofran Inj) 4 mg Q6H PRN IV 09/20/16 13:15 10/20/16 13:14 09/21/16 08:01 4 MG Heparin Sodium (Porcine) (Heparin Sq 5000 Unit/0.5ml) 5,000 unit Q12H SQ 09/20/16 21:00 10/20/16 20:59 09/21/16 09:00 5,000 UNIT Aspirin (Ecotrin Tab) 81 mg QPM PO 09/20/16 21:00 10/20/16 20:59 09/20/16 20:49 81 MG Atorvastatin Calcium (Lipitor Tab) 80 mg QPM PO 09/20/16 21:00 10/20/16 20:59 09/20/16 20:49 80 MG Carvedilol (Coreg Tab) 25 mg BID PO 09/20/16 21:00 10/20/16 20:59 09/21/16 08:57 25 MG Cholecalciferol (Vitamin D Tab) 1,000 inter.unit DAILY PO 09/21/16 09:00 10/21/16 08:59 09/21/16 08:56 1,000 INTER.UNIT Clopidogrel Bisulfate (plAVix TAB) 75 mg QPM PO 09/20/16 21:00 10/20/16 20:59 09/20/16 20:49 75 MG Lorazepam (Ativan Tab) 0.5 mg Q6H PRN PO 09/20/16 13:15 10/20/16 13:14 Multivitamins/ Minerals (Multivitamin W/ Minerals Tab) 1 tab QAM PO 09/21/16 09:00 10/21/16 08:59 09/21/16 08:55 1 TAB Nystatin (Mycostatin Powder) 1 appln BID EXT 09/20/16 21:00 10/20/16 20:59 09/21/16 08:57 1 APPLN Pantoprazole Sodium (Protonix Tab) 40 mg QAM PO 09/21/16 09:00 10/21/16 08:59 09/21/16 08:57 40 MG Vancomycin HCl (Vancomycin Oral Soln) 125 mg QAM PO 09/21/16 09:00 10/21/16 08:59 09/21/16 08:54 125 MG Febuxostat (Uloric) 40 mg DAILY@1200 PO 09/20/16 14:30 10/20/16 14:29 09/21/16 12:15 40 MG Miscellaneous Information 1 ea 1 ea QS N/A 09/20/16 16:15 10/20/16 16:14 Sodium Chloride (Nss 1000ml) 1,000 ml @ 80 mls/hr [id number] IV 09/20/16 13:15 10/20/16 13:14 09/21/16 04:43 80 MLS/HR Raspberry (Raspberry Syrup 5ml Cup) 5 ml QAM PO 09/21/16 09:00 10/05/16 08:59 09/21/16 08:55 5 ML Miscellaneous Information (Order Awaiting Action) 1 ea QS N/A 09/20/16 16:00 10/20/16 15:59 Heparin Sodium (Porcine) (Heparin 10 Unit/ ml 5 ml Flush) 5 ml PRN PRN FLUSH 09/20/16 23:45 10/20/16 23:44 Ondansetron HCl (Zofran Odt) 4 mg DAILYBB PO 09/21/16 09:59 10/21/16 09:58 Cefepime HCl (Consult) 1 ea UD PRN N/A 09/21/16 10:18 10/21/16 10:17 Calcitriol 0.25 mcg 0.25 mcg MoWeFr@0900 PO 09/21/16 11:00 10/21/16 10:59 09/21/16 12:15 0.25 MCG Cefepime HCl/ Dextrose (Maxipime IV/D5 100ml) 101.5625 ml @ 222.6 mls/hr Q24H IV 09/22/16 11:00 09/30/16 11:28 Sodium Bicarbonate (Sodium Bicarbonate Tab) 650 mg DAILY PO 09/22/16 09:00 10/22/16 08:59 Family History Other cardiovascular diseases Social History Smoking Status: Never Smoker Drug Use: none Marital Status: Housing Status: lives with family, halfway 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 Review of Systems A complete review of systems was performed. Pertinent positives are noted above. All other systems are negative. Physical Exam Date Time Temp Pulse Resp B/P Pulse Ox O2 Delivery O2 Flow Rate FiO2 09/21/16 08:00 Nasal Cannula 1.0 09/21/16 07:17 36.4 78 18 124/59 99 Nasal Cannula 2.0 09/21/16 00:32 36.9 87 18 126/68 95 2.0 09/21/16 00:00 Nasal Cannula 2.0 09/20/16 20:45 76 127/82 09/20/16 20:00 Nasal Cannula 2.0 09/20/16 16:53 Nasal Cannula 2.0 09/20/16 15:07 36.4 69 18 104/60 100 Nasal Cannula 2.0 09/20/16 14:11 70 16 89/36 100 Room Air . GENERAL: Elderly female. AAA x 3, ill-appearing, not in any distress. HEENT: Atraumatic, normocephalic. NECK: Supple, no JVD, no carotid bruit appreciated. MOUTH and THROAT: dry oral mucosa, no oral ulcer or pharyngeal erythema RESPIRATORY: Normal breathing efforts, no accessory muscle use, clear to auscultation bilaterally, no wheezes or rales. CARDIOVASCULAR: S1, S2 normal, rate rhythm regular. ABDOMEN: Soft, nontender, positive bowel sound. MUSCULOSKELETAL: No joint swelling, erythema or tenderness. Normal range of motion. SKIN: No skin rash EXTREMITY: No lower extremity edema NEURO: No gross focal neurological deficit, speech fluent. PSYCHIATRY: flat affect Laboratory Results Last 24 Hours Test 09/20/16 15:42 09/21/16 05:50 Prothrombin Time 12.2 SECONDS Prothromb Time International Ratio 1.1 Activated Partial Thromboplast Time 25.8 SECONDS Partial Thromboplastin Ratio 1.0 White Blood Count 9.03 K/uL Red Blood Count 2.98 M/uL Hemoglobin 9.2 g/dL Hematocrit 28.0 % Mean Corpuscular Volume 94.0 fL Mean Corpuscular Hemoglobin 30.9 pg Mean Corpuscular Hemoglobin Concent 32.9 g/dl RDW Standard Deviation 56.6 fL RDW Coefficient of Variation 16.4 % Platelet Count 140 K/uL Mean Platelet Volume 9.7 fL Sodium Level 147 mmol/L Potassium Level 4.5 mmol/L Chloride Level 120 mmol/L Carbon Dioxide Level 14 mmol/L Anion Gap 13.0 mmol/L Blood Urea Nitrogen 119 mg/dl Creatinine 5.20 mg/dl Est Creatinine Clear Calc Drug Dose 7.1 ml/min Estimated GFR () 8.2 Estimated GFR (Non- 7.1 BUN/Creatinine Ratio 22.9 Random Glucose 114 mg/dl Calcium Level 8.6 mg/dl Magnesium Level 2.2 mg/dl Impression (1) Acute renal failure superimposed on stage 4 chronic kidney disease (2) Metabolic acidosis (3) Recurrent UTI (4) Bilateral hydronephrosis (5) Secondary hyperparathyroidism of renal origin (6) Anemia (7) Ischemic cardiomyopathy (8) Generalized weakness Mrs. Johns is a 81-year-old female with multiple significant comorbidities including CHF with ejection fraction 20-25%, hypertension, advanced CKD, recurrent urinary tract infection, obstructive uropathy and recurrent history of acute kidney injury presented to the hospital with acute kidney injury and urinary tract infection with E coli. She has been getting IV fluid and cefepime. Lab showed metabolic acidosis. Has chronic anemia with advanced CKD and secondary hyperparathyroidism. Has history of stage 4/5 chronic kidney disease,Baseline creatinine has been 2.5 -3.0, history of bilateral hydronephrosis and recurrent acute kidney injury. Patient and family previously decided not to consider renal replacement therapy and being managed by conservative approach. Previously had ureteral stent placed and refused percutaneous nephrostomy for bilateral hydronephrosis. Has been having decent urine output. On admission creatinine was 5.7 which slightly improved to 5.2 this am. Renal ultrasound showed bilateral moderate hydronephrosis. Ureteral stent was exchanged on 08/21/16. Evaluated by Urology team and Urology did not feel that the chronic stable hydronephrosis is the arm contributing to the acute kidney injury and recommended no Urology intervention at this time. Recommendations --Suggest changing IV fluids to dextrose 5% with bicarbonate --monitor renal function with daily renal panel, reviewed Urology recommendation --Dose medications for GFR less than 10 -- avoid nephrotoxins medications --Epoetin 83350 units subcu x1 dose --start on calcitriol 0.25 micrograms them 3 times per week --suggest stopping IV fluid if p.o. intake is adequate, start on oral sodium bicarbonate once IV fluid discontinued Thank you for allowing me to participate in your patient's care. It was a pleasure to see Mrs. Chase. This chart was completed utilizing [employer] Speech and voice recognition software. Grammatical errors, random word insertions, pronoun errors and incomplete sentences are occasional consequences of this system. Any questions or concerns about the content, text or information contained within the body of this dictation should be addressed directly to the physician for clarification.
[2016-09-21 15:13] VITALS: BP 108/66; PULSE 76; TEMP 36.5; O2SAT 99
[2016-09-21 16:00] VITALS: O2SAT 99
[2016-09-21] MEDS: SODIUM BICARBONATE 8.4% INJ 100 MEQ in DEXTROSE 5% 1000ML 1,000 ML IV SCH (18:52)
[2016-09-21] MEDS: CLOPIDOGREL BISULFATE 75 MG TAB PO SCH (22:16)
[2016-09-21] MEDS: ATORVASTATIN 40 MG TAB PO SCH (22:16)
[2016-09-21] MEDS: ASPIRIN 81 MG ECTAB PO SCH (22:16)
[2016-09-21 23:48] VITALS: BP 125/61; PULSE 81; TEMP 36.6; O2SAT 99
[2016-09-22] VITALS: O2SAT 98
[2016-09-22] MEDS: LOTEMAX~ORDER AWAITING ACTION SCH (00:51)
[2016-09-22 05:54] LABS: HEMATOCRIT 26.8 % (37-47); MEAN CELL VOLUME 94.7 fL (80-100); MEAN CORPUSCULAR HEMOGLOBIN 30.4 pg (25-34); MEAN CORPUSCULAR HGB CONC 32.1 g/dl (32-36); MEAN PLATELET VOLUME 9.4 fL (7.4-10.4); PLATELET COUNT 114 K/uL (130-400); RED BLOOD COUNT 2.83 M/uL (4.2-5.4); WHITE BLOOD COUNT 6.94 K/uL (4.8-10.8)
[2016-09-22] MEDS: ONDANSETRON 4MG OD TAB PO SCH ×2 (06:38→08:34)
[2016-09-22 06:55] LABS: BUN/CREATININE RATIO 22.3 (10-20); CALCIUM 8.8 mg/dl (8.5-10.1); CREATININE 4.7 mg/dl (0.60-1.20); PHOSPHORUS 4.2 mg/dl (2.5-4.9); POTASSIUM 3.8 mmol/L (3.5-5.1)
[2016-09-22 07:09] VITALS: BP 130/72; PULSE 73; TEMP 36.4; O2SAT 100
[2016-09-22] MEDS: NYSTATIN POWDER 15GM BTL EXT SCH ×2 (08:33→20:44)
[2016-09-22] MEDS: CARVEDILOL 25 MG TAB PO SCH ×2 (08:33→20:45)
[2016-09-22] MEDS: CEROVITE ADV FORMULA TAB PO SCH (08:34)
[2016-09-22] MEDS: PANTOprazole SOD 40 MG TAB PO SCH (08:34)
[2016-09-22] MEDS: LOTEPREDNOL ETABONATE 0.5% OPB SCH (08:34)
[2016-09-22] MEDS: CHOLECALCIFEROL 1000 INTER.UNIT TAB PO SCH (08:35)
[2016-09-22] MEDS: RASPBERRY SYRUP 5 ML UDP PO SCH (08:54)
[2016-09-22] MEDS: SODIUM BICARBONATE 8.4% INJ 100 MEQ in DEXTROSE 5% 1000ML 1,000 ML IV SCH ×2 (08:55→20:44)
[2016-09-22] MEDS: HEPARIN SOD 5000 UNIT/0.5 ML CARP SQ SCH ×2 (08:55→20:53)
[2016-09-22] MEDS: VANCOMYCIN HCL 125 MG/2.5ML SOLN PO SCH (08:55)
[2016-09-22] MEDS ORDERED: SODIUM BICARBONATE 650 MG TAB PO SCH (09:00)
[2016-09-22] MEDS ORDERED: CEFEPIME IV SCH (11:00)
[2016-09-22] MEDS ORDERED: DEXTROSE 5% IV SCH (11:00)
[2016-09-22] MEDS: CEFTRIAXONE SOD INJ 1 GM in DEXTROSE 5% ADD-VANTAGE 50ML 50 ML IV SCH (11:03)
[2016-09-22] MEDS: FEBUXOSTAT 40 MG TAB PO SCH (11:05)
--- NOTE | 2016-09-22 12:13 | Nephrology Progress Note ---
Nephrology Progress Note Date of Service Sep 22, 2016. Chief Complaint BONNIE/CKD Subjective iTana was seen and evaluated. I discussed the plan of care in detail with her . The plan of care was also discussed with Dr. Ledesma. Tiana remains very weak. Appetite has been poor. She reports mild shortness of breath. She denies fevers or chills. She is voiding urine without difficulty. Urine remains turbid and cloudy. No diarrhea. Review of Systems Constitutional: No fever Respiratory: No dyspnea at rest Abdomen: No nausea A complete review of systems was performed. Pertinent positives are noted above. All other systems are negative. Vital Signs Last 8 Hrs Date Time Temp Pulse Resp B/P Pulse Ox O2 Delivery O2 Flow Rate FiO2 09/22/16 08:15 Nasal Cannula 2.0 09/22/16 07:09 36.4 73 18 130/72 100 2.0 I & O 24-Hour Column 09/22/16 08:00 Intake Total 2066 ml Balance 2066 ml Last Recorded Weight Weight (Kilograms): 61.000 Physical Exam General Appearance: WD/WN, no apparent distress Head: normocephalic, atraumatic Eyes: normal inspection, sclerae normal ENT: normal ENT inspection, pharynx normal Neck: supple, no JVD Respiratory/Chest: lungs clear, no respiratory distress, no accessory muscle use Cardiovascular: regular rate, rhythm Abdomen/GI: non tender, soft Extremities/Musculoskelatal: normal inspection, no pedal edema Neurologic/Psych: alert, oriented x 3 Family History Other cardiovascular diseases Social History Smoking Status: Never smoker Drug Use: none Marital Status: Housing Status: lives with family, half-way 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 Laboratory Results Past 24 Hours 09/22/16 05:30 09/22/16 05:30 Test 09/21/16 17:31 09/22/16 05:30 Bedside Glucose 122 mg/dl (70-90) Red Blood Count 2.83 M/uL (4.2-5.4) Mean Corpuscular Volume 94.7 fL (80-100) Mean Corpuscular Hemoglobin 30.4 pg (25-34) Mean Corpuscular Hemoglobin Concent 32.1 g/dl (32-36) RDW Standard Deviation 56.9 fL (36.4-46.3) RDW Coefficient of Variation 16.3 % (11.5-14.5) Mean Platelet Volume 9.4 fL (7.4-10.4) Anion Gap 11.0 mmol/L (3-11) Est Creatinine Clear Calc Drug Dose 7.8 ml/min Estimated GFR () 9.3 Estimated GFR (Non- 8.0 BUN/Creatinine Ratio 22.3 (10-20) Calcium Level 8.8 mg/dl (8.5-10.1) Phosphorus Level 4.2 mg/dl (2.5-4.9) Allergies Coded Allergies: Sulfa Antibiotics (Verified Allergy, Intermediate, BODY SWELLING,NAUSEA AND VOMITNG, 09/20/16) Penicillins (Verified Allergy, Unknown, Tolerates Primaxin, 09/20/16) PER PCP RECORDS Medications Current Inpatient Medications Medications (Trade) Dose Ordered Sig/Helder Route Start Time Stop Time Status Last Admin Dose Admin Acetaminophen (Tylenol Tab) 650 mg Q4H PRN PO 09/20/16 13:15 10/20/16 13:14 Al Hydrox/Mg Hydrox/Simethicone (Maalox Max Susp) 15 ml Q4H PRN PO 09/20/16 13:15 10/20/16 13:14 Magnesium Hydroxide (Milk Of Magnesia Susp) 30 ml Q6H PRN PO 09/20/16 13:15 10/20/16 13:14 Polyethylene (Miralax Powder Packet) 17 gm DAILY PRN PO 09/20/16 13:15 10/20/16 13:14 Ondansetron HCl (Zofran Inj) 4 mg Q6H PRN IV 09/20/16 13:15 10/20/16 13:14 09/21/16 08:01 4 MG Heparin Sodium (Porcine) (Heparin Sq 5000 Unit/0.5ml) 5,000 unit Q12H SQ 09/20/16 21:00 10/20/16 20:59 09/22/16 08:55 5,000 UNIT Aspirin (Ecotrin Tab) 81 mg QPM PO 09/20/16 21:00 10/20/16 20:59 09/21/16 22:16 81 MG Atorvastatin Calcium (Lipitor Tab) 80 mg QPM PO 09/20/16 21:00 10/20/16 20:59 09/21/16 22:16 80 MG Carvedilol (Coreg Tab) 25 mg BID PO 09/20/16 21:00 10/20/16 20:59 09/22/16 08:33 25 MG Cholecalciferol (Vitamin D Tab) 1,000 inter.unit DAILY PO 09/21/16 09:00 10/21/16 08:59 09/22/16 08:35 1,000 INTER.UNIT Clopidogrel Bisulfate (plAVix TAB) 75 mg QPM PO 09/20/16 21:00 10/20/16 20:59 09/21/16 22:16 75 MG Lorazepam (Ativan Tab) 0.5 mg Q6H PRN PO 09/20/16 13:15 10/20/16 13:14 Multivitamins/ Minerals (Multivitamin W/ Minerals Tab) 1 tab QAM PO 09/21/16 09:00 10/21/16 08:59 09/22/16 08:34 1 TAB Nystatin (Mycostatin Powder) 1 appln BID EXT 09/20/16 21:00 10/20/16 20:59 09/22/16 08:33 1 APPLN Pantoprazole Sodium (Protonix Tab) 40 mg QAM PO 09/21/16 09:00 10/21/16 08:59 09/22/16 08:34 40 MG Vancomycin HCl (Vancomycin Oral Soln) 125 mg QAM PO 09/21/16 09:00 10/21/16 08:59 09/22/16 08:55 125 MG Febuxostat (Uloric) 40 mg DAILY@1200 PO 09/20/16 14:30 10/20/16 14:29 09/22/16 11:05 40 MG Raspberry (Raspberry Syrup 5ml Cup) 5 ml QAM PO 09/21/16 09:00 10/05/16 08:59 09/22/16 08:54 5 ML Miscellaneous Information (Order Awaiting Action) 1 ea QS N/A 09/20/16 16:00 10/20/16 15:59 Heparin Sodium (Porcine) (Heparin 10 Unit/ ml 5 ml Flush) 5 ml PRN PRN FLUSH 09/20/16 23:45 10/20/16 23:44 Ondansetron HCl (Zofran Odt) 4 mg DAILYBB PO 09/21/16 09:59 10/21/16 09:58 09/22/16 08:34 4 MG Calcitriol (Rocaltrol Cap) 0.25 mcg MoWeFr@0900 PO 09/21/16 11:00 10/21/16 10:59 09/21/16 12:15 0.25 MCG Loteprednol Etabonate 1 drops 1 drops DAILY OPB 09/22/16 09:00 10/22/16 08:59 09/22/16 08:34 1 DROPS Sodium Bicarbonate 100 meq/Dextrose 1,100 ml @ 80 mls/hr [id number] IV 09/21/16 16:30 10/21/16 16:29 09/22/16 08:55 80 MLS/HR Ceftriaxone Sodium/Dextrose (Rocephin Inj/ Dextrose Add-[place] 50ML) 50 ml @ 100 mls/hr Q24H IV 09/22/16 11:00 10/02/16 08:44 09/22/16 11:03 100 MLS/HR Impression (1) Acute renal failure superimposed on stage 4 chronic kidney disease (2) Metabolic acidosis (3) Recurrent UTI (4) Bilateral hydronephrosis (5) Secondary hyperparathyroidism of renal origin (6) Anemia (7) Ischemic cardiomyopathy (8) Generalized weakness Mrs. Chase is a 81-year-old female with multiple significant medical comorbidities including CHF with ejection fraction 20-25%, hypertension, advanced CKD (baseline creatinine ~3.0 mg/dL), recurrent urinary tract infection , obstructive uropathy and recurrent history of acute kidney injury. She presented to the hospital with acute kidney injury and urinary tract infection with E coli. She has been getting IV fluid and cefepime. Labs notable for metabolic acidosis. Tiana has chronic anemia of CKD and secondary hyperparathyroidism. Tiana and her family previously decided not to consider renal replacement therapy. She previously had ureteral stent placed and refused percutaneous nephrostomy for bilateral hydronephrosis. She has been having decent urine output. On admission creatinine was 5.7. It continues to show improvement with antibiotics and IVF. Renal ultrasound showed bilateral moderate hydronephrosis. Ureteral stent was exchanged on 08/21/16. Urology did not feel that intervention was necessary at this time. Renal function showing evidence of recovery and infection responding to therapy. Recommendations -- Continue D5W + HCO3 100 mEq @ 100 ml/hr -- Repeat metabolic profile this afternoon -- Medications are appropriately dosed for renal function -- Epoetin 36806 units given 09/21/16 -- Check iron profile with AM labs -- Continue calcitriol 0.25 micrograms them 3 times per week -- Document I/O's and metabolic profile daily
[2016-09-22 15:11] VITALS: BP 132/71; PULSE 82; TEMP 36.6; O2SAT 99
--- NOTE | 2016-09-22 15:21 | Hospitalist Progress Note ---
Hospitalist Progress Note Date of Service Sep 22, 2016. Subjective denies any complains at bedside - upset because her oxygen was turned off last night. Constitutional: No fever Respiratory: No shortness of breath Cardiovascular: No chest pain Objective Vital Signs Date Time Temp Pulse Resp B/P Pulse Ox O2 Delivery O2 Flow Rate FiO2 09/22/16 08:15 Nasal Cannula 2.0 09/22/16 07:09 36.4 73 18 130/72 100 2.0 09/22/16 00:00 98 Nasal Cannula 1.0 09/21/16 23:48 36.6 81 20 125/61 99 Nasal Cannula 2.0 09/21/16 16:00 99 Nasal Cannula 2.0 09/21/16 15:13 36.5 76 18 108/66 99 Nasal Cannula 2.0 Physical Exam General Appearance: no apparent distress Respiratory/Chest: lungs clear, no respiratory distress Cardiovascular: regular rate, rhythm Abdomen: normal bowel sounds, soft Neurologic/Psychiatric: alert Skin: warm/dry Laboratory Results Last 24 Hours Test 09/21/16 17:31 09/22/16 05:30 Bedside Glucose 122 mg/dl White Blood Count 6.94 K/uL Red Blood Count 2.83 M/uL Hemoglobin 8.6 g/dL Hematocrit 26.8 % Mean Corpuscular Volume 94.7 fL Mean Corpuscular Hemoglobin 30.4 pg Mean Corpuscular Hemoglobin Concent 32.1 g/dl RDW Standard Deviation 56.9 fL RDW Coefficient of Variation 16.3 % Platelet Count 114 K/uL Mean Platelet Volume 9.4 fL Sodium Level 146 mmol/L Potassium Level 3.8 mmol/L Chloride Level 116 mmol/L Carbon Dioxide Level 19 mmol/L Anion Gap 11.0 mmol/L Blood Urea Nitrogen 105 mg/dl Creatinine 4.70 mg/dl Est Creatinine Clear Calc Drug Dose 7.8 ml/min Estimated GFR () 9.3 Estimated GFR (Non- 8.0 BUN/Creatinine Ratio 22.3 Random Glucose 112 mg/dl Calcium Level 8.8 mg/dl Phosphorus Level 4.2 mg/dl Assessment and Plan 81-year-old female, who presents with 1 week of malaise and decline, as well as increased creatinine suggestive of acute kidney injury. Acute Kidney Injury - On background of chronic kidney injury stage III; baseline creatinine 2.1 - Follows with Dr. Corral from nephrology Nephrology to be consultative for further recommendations - Bicarb drip, avoid nephrotoxic meds - Hydronephrosis persists on renal ultrasound - Patient is status post bilateral stent exchange by urology; we will consult him for further recommendations - Patient has a history of recurrent UTIs; hydronephrosis likely has a chronic component secondary to obstructive uropathy - Creatinine better - recheck in am E.coli Urinary tract infection - sensitivity noted. switch to ceftrixone. d/c cefepime. Metabolic alkalosis - Bicarbonate 14 - Patient will be started on by mouth bicarbonate this time; Anemia of chronic disease - Hgb remained stable - Continue to follow; check daily CBC Chronic suppressive therapy for C.diff - Continue Vancomycin 125 mg daily and Probiotic - Infectious diseases is consult on the case Chronic systolic CHF with/out exacerbation/hx of HI - Most recent echo on 05/2016 shows mildly reduced ejection fraction 35-40% - Continue home dose of carvedilol - ACEi and ARB are both contraindicated due to acute on kidney injury Chronic oxygen use - unclear of the diagnosis. possible nocturnal hypoxia sec to central apnea - will check pcp records. History of HI/coronary artery disease - Continue aspirin and Plavix - Continue atorvastatin - Continue carvedilol DVT prophylaxis - Heparin sq BID - CODI/SCDs Code Status - Level I Code Disposition - PT and OT to be consultative Anticipate d/c home in am. provides care at home
[2016-09-22 16:00] VITALS: O2SAT 99
[2016-09-22 19:39] LABS: CALCIUM 8.2 mg/dl (8.5-10.1); CREATININE 4.3 mg/dl (0.60-1.20); PHOSPHORUS 3.3 mg/dl (2.5-4.9); POTASSIUM 4.1 mmol/L (3.5-5.1)
[2016-09-22] MEDS: ASPIRIN 81 MG ECTAB PO SCH (20:45)
[2016-09-22] MEDS: CLOPIDOGREL BISULFATE 75 MG TAB PO SCH (20:46)
[2016-09-22] MEDS: ATORVASTATIN 40 MG TAB PO SCH (20:46)
[2016-09-22 23:58] VITALS: BP 125/65; PULSE 80; TEMP 36.8; O2SAT 98
[2016-09-23 06:07] LABS: MEAN CELL VOLUME 92.4 fL (80-100); MEAN CORPUSCULAR HEMOGLOBIN 30.7 pg (25-34); MEAN CORPUSCULAR HGB CONC 33.2 g/dl (32-36); MEAN PLATELET VOLUME 9.4 fL (7.4-10.4); PLATELET COUNT 126 K/uL (130-400); RED BLOOD COUNT 3.03 M/uL (4.2-5.4); WHITE BLOOD COUNT 9.41 K/uL (4.8-10.8)
[2016-09-23] MEDS: ONDANSETRON INJ 2 MG/ML 2 ML VIAL IV PRN (06:48)
[2016-09-23 07:33] LABS: BUN/CREATININE RATIO 20.9 (10-20); CALCIUM 8.4 mg/dl (8.5-10.1); CREATININE 4.1 mg/dl (0.60-1.20); MAGNESIUM 1.7 mg/dl (1.8-2.4); POTASSIUM 3.7 mmol/L (3.5-5.1)
[2016-09-23 07:39] LABS: PHOSPHORUS 3.2 mg/dl (2.5-4.9)
[2016-09-23 07:44] VITALS: BP 159/80; PULSE 78; TEMP 36.4; O2SAT 98
[2016-09-23] MEDS: NYSTATIN POWDER 15GM BTL EXT SCH ×2 (08:37→20:05)
[2016-09-23] MEDS: LOTEPREDNOL ETABONATE 0.5% OPB SCH (08:38)
[2016-09-23] MEDS: CEROVITE ADV FORMULA TAB PO SCH (08:39)
[2016-09-23] MEDS: CHOLECALCIFEROL 1000 INTER.UNIT TAB PO SCH (08:40)
[2016-09-23] MEDS: CARVEDILOL 25 MG TAB PO SCH ×2 (08:41→20:09)
[2016-09-23] MEDS: PANTOprazole SOD 40 MG TAB PO SCH (08:43)
[2016-09-23] MEDS: RASPBERRY SYRUP 5 ML UDP PO SCH (08:43)
[2016-09-23] MEDS: VANCOMYCIN HCL 125 MG/2.5ML SOLN PO SCH (08:44)
[2016-09-23] MEDS: HEPARIN SOD 5000 UNIT/0.5 ML CARP SQ SCH ×2 (08:51→20:09)
[2016-09-23] MEDS ORDERED: EPOETIN ALFA 4000 UNITS/ML VIAL SQ SCH (11:00)
--- NOTE | 2016-09-23 11:05 | Nephrology Progress Note ---
Nephrology Progress Note Date of Service Sep 23, 2016. Chief Complaint BONNIE/CKD Subjective No acute events overnight. iTana experienced some nausea this morning. She does use Zofran and home regularly for nausea but her reported that symptoms this morning were slightly uncharacteristic. He attributed this to the hospital diet and timing of Zofran administration. Tiana oral intake is slightly reduced but Tiana and her feel that if some of the hospital restrictions included in the renal diet are removed this could improve. Mr. Chase expressed that she does seem slightly weak today and expressed concerns about going home at this time. He would feel more comfortable with discharge tomorrow when there is assistance at home between and . Review of Systems A complete review of systems was performed. Pertinent positives are noted above. All other systems are negative. Vital Signs Last 8 Hrs Date Time Temp Pulse Resp B/P Pulse Ox O2 Delivery O2 Flow Rate FiO2 09/23/16 08:30 Nasal Cannula 2.0 09/23/16 07:44 36.4 78 18 159/80 98 2.0 I & O 24-Hour Column 09/23/16 08:00 Intake Total 2158 ml Balance 2158 ml Last Recorded Weight Weight (Kilograms): 61.000 Physical Exam General Appearance: no apparent distress, + thin Head: normocephalic, atraumatic Eyes: EOMI, sclerae normal ENT: normal ENT inspection, pharynx normal Neck: supple, no JVD Respiratory/Chest: lungs clear, no respiratory distress, no accessory muscle use Cardiovascular: regular rate, rhythm, no gallop Abdomen/GI: non tender, soft Extremities/Musculoskelatal: normal inspection, no pedal edema, + pertinent finding (PICC intact) Neurologic/Psych: alert, + depressed affect Family History Other cardiovascular diseases Social History Smoking Status: Never smoker Drug Use: none Marital Status: Housing Status: lives with family, fpc 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 Laboratory Results Past 24 Hours 09/23/16 05:20 09/22/16 19:05 09/23/16 05:20 Test 09/22/16 19:05 09/23/16 05:20 Anion Gap 15.0 mmol/L (3-11) 11.0 mmol/L (3-11) Est Creatinine Clear Calc Drug Dose 8.6 ml/min 9.0 ml/min Estimated GFR () 10.3 11.0 Estimated GFR (Non- 8.9 9.5 BUN/Creatinine Ratio 23.0 (10-20) 20.9 (10-20) Calcium Level 8.2 mg/dl (8.5-10.1) 8.4 mg/dl (8.5-10.1) Phosphorus Level 3.3 mg/dl (2.5-4.9) 3.2 mg/dl (2.5-4.9) Albumin 2.5 gm/dl (3.4-5.0) Red Blood Count 3.03 M/uL (4.2-5.4) Mean Corpuscular Volume 92.4 fL (80-100) Mean Corpuscular Hemoglobin 30.7 pg (25-34) Mean Corpuscular Hemoglobin Concent 33.2 g/dl (32-36) RDW Standard Deviation 54.4 fL (36.4-46.3) RDW Coefficient of Variation 16.0 % (11.5-14.5) Mean Platelet Volume 9.4 fL (7.4-10.4) Magnesium Level 1.7 mg/dl (1.8-2.4) Iron Level 42 mcg/dl (35-150) Total Iron Binding Capacity 152 mcg/dl (250-450) Transferrin 116 mg/dl (200-360) Transferrin % Saturation 26 % (15-50) Ferritin 883.0 ng/ml (8.0-388.0) Allergies Coded Allergies: Sulfa Antibiotics (Verified Allergy, Intermediate, BODY SWELLING,NAUSEA AND VOMITNG, 09/20/16) Penicillins (Verified Allergy, Unknown, Tolerates Primaxin, 09/20/16) PER PCP RECORDS Medications Current Inpatient Medications Medications (Trade) Dose Ordered Sig/Helder Route Start Time Stop Time Status Last Admin Dose Admin Acetaminophen (Tylenol Tab) 650 mg Q4H PRN PO 09/20/16 13:15 10/20/16 13:14 Al Hydrox/Mg Hydrox/Simethicone (Maalox Max Susp) 15 ml Q4H PRN PO 09/20/16 13:15 10/20/16 13:14 Magnesium Hydroxide (Milk Of Magnesia Susp) 30 ml Q6H PRN PO 09/20/16 13:15 10/20/16 13:14 Polyethylene (Miralax Powder Packet) 17 gm DAILY PRN PO 09/20/16 13:15 10/20/16 13:14 Ondansetron HCl (Zofran Inj) 4 mg Q6H PRN IV 09/20/16 13:15 10/20/16 13:14 09/23/16 06:48 4 MG Heparin Sodium (Porcine) (Heparin Sq 5000 Unit/0.5ml) 5,000 unit Q12H SQ 09/20/16 21:00 10/20/16 20:59 09/23/16 08:51 5,000 UNIT Aspirin (Ecotrin Tab) 81 mg QPM PO 09/20/16 21:00 10/20/16 20:59 09/22/16 20:45 81 MG Atorvastatin Calcium (Lipitor Tab) 80 mg QPM PO 09/20/16 21:00 10/20/16 20:59 09/22/16 20:46 80 MG Carvedilol (Coreg Tab) 25 mg BID PO 09/20/16 21:00 10/20/16 20:59 09/23/16 08:41 25 MG Cholecalciferol (Vitamin D Tab) 1,000 inter.unit DAILY PO 09/21/16 09:00 10/21/16 08:59 09/23/16 08:40 1,000 INTER.UNIT Clopidogrel Bisulfate (plAVix TAB) 75 mg QPM PO 09/20/16 21:00 10/20/16 20:59 09/22/16 20:46 75 MG Lorazepam (Ativan Tab) 0.5 mg Q6H PRN PO 09/20/16 13:15 10/20/16 13:14 Multivitamins/ Minerals (Multivitamin W/ Minerals Tab) 1 tab QAM PO 09/21/16 09:00 10/21/16 08:59 09/23/16 08:39 1 TAB Nystatin (Mycostatin Powder) 1 appln BID EXT 09/20/16 21:00 10/20/16 20:59 09/23/16 08:37 1 APPLN Pantoprazole Sodium (Protonix Tab) 40 mg QAM PO 09/21/16 09:00 10/21/16 08:59 09/23/16 08:43 40 MG Vancomycin HCl (Vancomycin Oral Soln) 125 mg QAM PO 09/21/16 09:00 10/21/16 08:59 09/23/16 08:44 125 MG Febuxostat (Uloric) 40 mg DAILY@1200 PO 09/20/16 14:30 10/20/16 14:29 09/22/16 11:05 40 MG Raspberry (Raspberry Syrup 5ml Cup) 5 ml QAM PO 09/21/16 09:00 10/05/16 08:59 09/23/16 08:43 5 ML Miscellaneous Information (Order Awaiting Action) 1 ea QS N/A 09/20/16 16:00 10/20/16 15:59 Heparin Sodium (Porcine) (Heparin 10 Unit/ ml 5 ml Flush) 5 ml PRN PRN FLUSH 09/20/16 23:45 10/20/16 23:44 Ondansetron HCl (Zofran Odt) 4 mg DAILYBB PO 09/21/16 09:59 10/21/16 09:58 09/22/16 08:34 4 MG Calcitriol (Rocaltrol Cap) 0.25 mcg MoWeFr@0900 PO 09/21/16 11:00 10/21/16 10:59 09/21/16 12:15 0.25 MCG Loteprednol Etabonate 1 drops 1 drops DAILY OPB 09/22/16 09:00 10/22/16 08:59 09/23/16 08:38 1 DROPS Sodium Bicarbonate 100 meq/Dextrose 1,100 ml @ 80 mls/hr [id number] IV 09/21/16 16:30 10/21/16 16:29 09/22/16 20:44 80 MLS/HR Ceftriaxone Sodium/Dextrose (Rocephin Inj/ Dextrose Add-[place] 50ML) 50 ml @ 100 mls/hr Q24H IV 09/22/16 11:00 10/02/16 08:44 09/22/16 11:03 100 MLS/HR Epoetin Buck (Procrit Inj) 4,000 units ONE SQ 09/23/16 11:00 10/23/16 10:59 UNV Impression (1) Acute renal failure superimposed on stage 4 chronic kidney disease (2) Metabolic acidosis (3) Recurrent UTI (4) Bilateral hydronephrosis (5) Secondary hyperparathyroidism of renal origin (6) Anemia (7) Ischemic cardiomyopathy (8) Generalized weakness Mrs. Chase is a 81-year-old female with multiple significant medical comorbidities including CHF with ejection fraction 20-25%, hypertension, advanced CKD (baseline creatinine ~3.0 mg/dL), recurrent urinary tract infection , obstructive uropathy and recurrent history of acute kidney injury. She presented to the hospital with acute kidney injury and urinary tract infection with E coli. She has been getting IV fluid and cefepime. Abx now switched to ceftriaxone. Labs notable for metabolic acidosis. Tiana has chronic anemia of CKD and secondary hyperparathyroidism. Tiana and her family previously decided not to consider renal replacement therapy. She previously had ureteral stent placed and refused percutaneous nephrostomy for bilateral hydronephrosis. She has been having decent urine output. On admission creatinine was 5.7. It continues to show improvement with antibiotics and IVF. Renal ultrasound showed bilateral moderate hydronephrosis. Ureteral stent was exchanged on 08/21/16. Urology did not feel that intervention was necessary at this time. Renal function showing evidence of recovery and infection responding to therapy. Recommendations -- Stop IVF -- Encourage nutrition -- Repeat metabolic profile tomorrow AM -- Epoetin [id number] units given 09/21/16 -- Iron profile appropriate -- Continue calcitriol 0.25 micrograms them 3 times per week -- Document I/O's and metabolic profile daily
[2016-09-23] MEDS: CEFTRIAXONE SOD INJ 1 GM in DEXTROSE 5% ADD-VANTAGE 50ML 50 ML IV SCH (12:32)
[2016-09-23] MEDS: FEBUXOSTAT 40 MG TAB PO SCH (12:33)
[2016-09-23 15:12] VITALS: BP 124/70; PULSE 78; TEMP 36.6; O2SAT 99
[2016-09-23 16:00] VITALS: O2SAT 99
[2016-09-23] MEDS: ASPIRIN 81 MG ECTAB PO SCH (20:08)
[2016-09-23] MEDS: CLOPIDOGREL BISULFATE 75 MG TAB PO SCH (20:09)
[2016-09-23] MEDS: ATORVASTATIN 40 MG TAB PO SCH (20:09)
--- NOTE | 2016-09-23 20:56 | Hospitalist Progress Note ---
Hospitalist Progress Note Date of Service Sep 23, 2016. Subjective nauseous this am. no other concerns. Constitutional: No fever Respiratory: No shortness of breath Cardiovascular: No chest pain Objective Vital Signs Date Time Temp Pulse Resp B/P Pulse Ox O2 Delivery O2 Flow Rate FiO2 09/23/16 16:00 99 Nasal Cannula 2.0 09/23/16 15:12 36.6 78 16 124/70 99 2.0 09/23/16 08:30 Nasal Cannula 2.0 09/23/16 07:44 36.4 78 18 159/80 98 2.0 09/23/16 00:00 Nasal Cannula 2.0 09/22/16 23:58 36.8 80 16 125/65 98 Nasal Cannula 2.0 Physical Exam General Appearance: no apparent distress Respiratory/Chest: lungs clear, no respiratory distress Cardiovascular: regular rate, rhythm Abdomen: normal bowel sounds, non tender, soft Neurologic/Psychiatric: + pertinent finding (somnolent - arousable) Skin: warm/dry Laboratory Results Last 24 Hours Test 09/23/16 05:20 White Blood Count 9.41 K/uL Red Blood Count 3.03 M/uL Hemoglobin 9.3 g/dL Hematocrit 28.0 % Mean Corpuscular Volume 92.4 fL Mean Corpuscular Hemoglobin 30.7 pg Mean Corpuscular Hemoglobin Concent 33.2 g/dl RDW Standard Deviation 54.4 fL RDW Coefficient of Variation 16.0 % Platelet Count 126 K/uL Mean Platelet Volume 9.4 fL Sodium Level 144 mmol/L Potassium Level 3.7 mmol/L Chloride Level 109 mmol/L Carbon Dioxide Level 24 mmol/L Anion Gap 11.0 mmol/L Blood Urea Nitrogen 86 mg/dl Creatinine 4.10 mg/dl Est Creatinine Clear Calc Drug Dose 9.0 ml/min Estimated GFR () 11.0 Estimated GFR (Non- 9.5 BUN/Creatinine Ratio 20.9 Random Glucose 126 mg/dl Calcium Level 8.4 mg/dl Phosphorus Level 3.2 mg/dl Magnesium Level 1.7 mg/dl Iron Level 42 mcg/dl Total Iron Binding Capacity 152 mcg/dl Transferrin 116 mg/dl Transferrin % Saturation 26 % Ferritin 883.0 ng/ml Assessment and Plan 81-year-old female, who presents with 1 week of malaise and decline, as well as increased creatinine suggestive of acute kidney injury. Acute Kidney Injury on ckd stage 4-5 - creatinine improving, baseline creatinine 2.1. - Follows with Dr. Corral from nephrology - Administering bicarb, avoid nephrotoxic meds - Hydronephrosis persists on renal ultrasound - Patient is status post bilateral stent exchange by urology; we will consult him for further recommendations - Patient has a history of recurrent UTIs; hydronephrosis likely has a chronic component secondary to obstructive uropathy E.coli Urinary tract infection - sensitivity noted. switched to ceftrixone. d/c cefepime. Nausea - better with zofran. follow overnight. abd exam - normal. Anemia of chronic disease - Hgb remained stable - Continue to follow; check daily CBC Chronic suppressive therapy for C.diff - Continue Vancomycin 125 mg daily and Probiotic - Infectious diseases is consult on the case Chronic systolic CHF with/out exacerbation/hx of NV - Most recent echo on 05/2016 shows mildly reduced ejection fraction 35-40% - Continue home dose of carvedilol - ACEi and ARB are both contraindicated due to acute on kidney injury Chronic oxygen use - unclear of the diagnosis. possible nocturnal hypoxia sec to central apnea - will check pcp records. History of NV/coronary artery disease - Continue aspirin and Plavix - Continue atorvastatin - Continue carvedilol DVT prophylaxis - Heparin sq BID - CODI/SCDs Code Status - Level I Code Disposition - PT and OT to be consultative Anticipate d/c home in am. provides care at home
[2016-09-24 00:37] VITALS: BP 111/64; PULSE 64; TEMP 36.8; O2SAT 97
[2016-09-24 06:22] LABS: BUN/CREATININE RATIO 19.9 (10-20); CALCIUM 8.7 mg/dl (8.5-10.1); CREATININE 3.9 mg/dl (0.60-1.20); PHOSPHORUS 3.5 mg/dl (2.5-4.9); POTASSIUM 3.7 mmol/L (3.5-5.1)
[2016-09-24] MEDS: ONDANSETRON 4MG OD TAB PO SCH (06:45)
[2016-09-24 07:08] VITALS: BP 135/75; PULSE 72; TEMP 36.8; O2SAT 100
[2016-09-24] MEDS: CALCITRIOL 0.25 MCG CAP PO SCH (09:31)
[2016-09-24] MEDS: NYSTATIN POWDER 15GM BTL EXT SCH ×2 (09:31→21:21)
[2016-09-24] MEDS: CARVEDILOL 25 MG TAB PO SCH ×2 (09:32→21:35)
[2016-09-24] MEDS: PANTOprazole SOD 40 MG TAB PO SCH (09:32)
[2016-09-24] MEDS: CHOLECALCIFEROL 1000 INTER.UNIT TAB PO SCH (09:33)
[2016-09-24] MEDS: CEROVITE ADV FORMULA TAB PO SCH (09:33)
[2016-09-24] MEDS: HEPARIN SOD 5000 UNIT/0.5 ML CARP SQ SCH ×2 (09:34→21:43)
[2016-09-24] MEDS: RASPBERRY SYRUP 5 ML UDP PO SCH (09:36)
[2016-09-24] MEDS: VANCOMYCIN HCL 125 MG/2.5ML SOLN PO SCH (09:36)
[2016-09-24] MEDS: LOTEPREDNOL ETABONATE 0.5% OPB SCH (09:36)
--- NOTE | 2016-09-24 09:36 | Nephrology Progress Note ---
Nephrology Progress Note Date of Service Sep 24, 2016. Chief Complaint BONNIE/CKD Subjective No acute events overnight. No complaints this morning. Denies shortness of breath. Appetite good. No fevers or chills. Expressed comfort in discharge home today. Review of Systems A complete review of systems was performed. Pertinent positives are noted above. All other systems are negative. Vital Signs Last 8 Hrs Date Time Temp Pulse Resp B/P Pulse Ox O2 Delivery O2 Flow Rate FiO2 09/24/16 07:08 36.8 72 16 135/75 100 2.0 I & O 24-Hour Column 09/24/16 08:00 Intake Total 736 ml Balance 736 ml Last Recorded Weight Weight (Kilograms): 61.000 Physical Exam General Appearance: WD/WN, no apparent distress Head: normocephalic, atraumatic Eyes: PERRL, sclerae normal ENT: normal ENT inspection, pharynx normal Neck: supple, no JVD Respiratory/Chest: lungs clear, no respiratory distress, no accessory muscle use Cardiovascular: regular rate, rhythm, no gallop Abdomen/GI: non tender, soft Extremities/Musculoskelatal: normal inspection, + pedal edema (dependent) Neurologic/Psych: alert, normal mood/affect Family History Other cardiovascular diseases Social History Smoking Status: Never smoker Drug Use: none Marital Status: Housing Status: lives with family, retirement 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 Laboratory Results Past 24 Hours 09/24/16 05:05 Test 09/24/16 05:05 Anion Gap 8.0 mmol/L (3-11) Est Creatinine Clear Calc Drug Dose 9.4 ml/min Estimated GFR () 11.6 Estimated GFR (Non- 10.0 BUN/Creatinine Ratio 19.9 (10-20) Calcium Level 8.7 mg/dl (8.5-10.1) Phosphorus Level 3.5 mg/dl (2.5-4.9) Albumin 2.6 gm/dl (3.4-5.0) Allergies Coded Allergies: Sulfa Antibiotics (Verified Allergy, Intermediate, BODY SWELLING,NAUSEA AND VOMITNG, 09/20/16) Penicillins (Verified Allergy, Unknown, Tolerates Primaxin, 09/20/16) PER PCP RECORDS Medications Current Inpatient Medications Medications (Trade) Dose Ordered Sig/Helder Route Start Time Stop Time Status Last Admin Dose Admin Acetaminophen (Tylenol Tab) 650 mg Q4H PRN PO 09/20/16 13:15 10/20/16 13:14 Al Hydrox/Mg Hydrox/Simethicone (Maalox Max Susp) 15 ml Q4H PRN PO 09/20/16 13:15 10/20/16 13:14 Magnesium Hydroxide (Milk Of Magnesia Susp) 30 ml Q6H PRN PO 09/20/16 13:15 10/20/16 13:14 Polyethylene (Miralax Powder Packet) 17 gm DAILY PRN PO 09/20/16 13:15 10/20/16 13:14 Ondansetron HCl (Zofran Inj) 4 mg Q6H PRN IV 09/20/16 13:15 10/20/16 13:14 09/23/16 06:48 4 MG Heparin Sodium (Porcine) (Heparin Sq 5000 Unit/0.5ml) 5,000 unit Q12H SQ 09/20/16 21:00 10/20/16 20:59 09/23/16 08:51 5,000 UNIT Aspirin (Ecotrin Tab) 81 mg QPM PO 09/20/16 21:00 10/20/16 20:59 09/23/16 20:08 81 MG Atorvastatin Calcium (Lipitor Tab) 80 mg QPM PO 09/20/16 21:00 10/20/16 20:59 09/23/16 20:09 80 MG Carvedilol (Coreg Tab) 25 mg BID PO 09/20/16 21:00 10/20/16 20:59 09/23/16 20:09 25 MG Cholecalciferol (Vitamin D Tab) 1,000 inter.unit DAILY PO 09/21/16 09:00 10/21/16 08:59 09/23/16 08:40 1,000 INTER.UNIT Clopidogrel Bisulfate (plAVix TAB) 75 mg QPM PO 09/20/16 21:00 10/20/16 20:59 09/23/16 20:09 75 MG Lorazepam (Ativan Tab) 0.5 mg Q6H PRN PO 09/20/16 13:15 10/20/16 13:14 Multivitamins/ Minerals (Multivitamin W/ Minerals Tab) 1 tab QAM PO 09/21/16 09:00 10/21/16 08:59 09/23/16 08:39 1 TAB Nystatin (Mycostatin Powder) 1 appln BID EXT 09/20/16 21:00 10/20/16 20:59 09/23/16 20:05 1 APPLN Pantoprazole Sodium (Protonix Tab) 40 mg QAM PO 09/21/16 09:00 10/21/16 08:59 09/23/16 08:43 40 MG Vancomycin HCl (Vancomycin Oral Soln) 125 mg QAM PO 09/21/16 09:00 10/21/16 08:59 09/23/16 08:44 125 MG Febuxostat (Uloric) 40 mg DAILY@1200 PO 09/20/16 14:30 10/20/16 14:29 09/23/16 12:33 40 MG Raspberry (Raspberry Syrup 5ml Cup) 5 ml QAM PO 09/21/16 09:00 10/05/16 08:59 09/23/16 08:43 5 ML Miscellaneous Information (Order Awaiting Action) 1 ea QS N/A 09/20/16 16:00 10/20/16 15:59 Heparin Sodium (Porcine) (Heparin 10 Unit/ ml 5 ml Flush) 5 ml PRN PRN FLUSH 09/20/16 23:45 10/20/16 23:44 09/24/16 05:01 5 ML Ondansetron HCl (Zofran Odt) 4 mg DAILYBB PO 09/21/16 09:59 10/21/16 09:58 09/24/16 06:45 4 MG Calcitriol (Rocaltrol Cap) 0.25 mcg MoWeFr@0900 PO 09/21/16 11:00 10/21/16 10:59 09/21/16 12:15 0.25 MCG Loteprednol Etabonate 1 drops 1 drops DAILY OPB 09/22/16 09:00 10/22/16 08:59 09/23/16 08:38 1 DROPS Ceftriaxone Sodium/Dextrose (Rocephin Inj/ Dextrose Add-[place] 50ML) 50 ml @ 100 mls/hr Q24H IV 09/22/16 11:00 10/02/16 08:44 09/23/16 12:32 100 MLS/HR Impression (1) Acute renal failure superimposed on stage 4 chronic kidney disease (2) Metabolic acidosis (3) Recurrent UTI (4) Bilateral hydronephrosis (5) Secondary hyperparathyroidism of renal origin (6) Anemia (7) Ischemic cardiomyopathy (8) Generalized weakness Mrs. Chase is a 81-year-old female with multiple significant medical comorbidities including CHF with ejection fraction 20-25%, hypertension, advanced CKD (baseline creatinine ~3.0 mg/dL), recurrent urinary tract infection , obstructive uropathy and recurrent history of acute kidney injury. She presented to the hospital with acute kidney injury and urinary tract infection with E coli. She has been getting IV fluid and cefepime. Abx now switched to ceftriaxone. Tiana has chronic anemia of CKD and secondary hyperparathyroidism. Tiana and her family previously decided not to consider renal replacement therapy. She previously had ureteral stent placed and refused percutaneous nephrostomy for bilateral hydronephrosis. Urine output appropriate. On admission creatinine was 5.7. Renal function improving with treatment of UTI and positive fluid balance. Renal ultrasound showed bilateral moderate hydronephrosis. Ureteral stent was exchanged on 08/21/16. Urology did not feel that intervention was necessary at this time. Recommendations -- Encourage nutrition -- Repeat metabolic profile within 1 week of discharge -- Follow up with Dr. Corral in the clinic within 2 weeks of discharge -- Epoetin 93060 units given 09/21/16 -- Iron profile appropriate -- Continue calcitriol 0.25 micrograms them 3 times per week -- Document I/O's and metabolic profile daily
[2016-09-24] MEDS: CEFTRIAXONE SOD INJ 1 GM in DEXTROSE 5% ADD-VANTAGE 50ML 50 ML IV SCH (11:12)
[2016-09-24] MEDS: FEBUXOSTAT 40 MG TAB PO SCH (12:05)
--- NOTE | 2016-09-24 12:23 | Progress Note ---
Subjective Date of Service: Sep 24, 2016. Subjective pt changed to rocephin, tolerating well. afebrile. urine culture growing e coli. creat improving, wbc improved. No am cbc. no overnight events. Problem List Medical Problems: (1) Acute on chronic kidney failure Status: Acute (2) Acute renal failure Status: Acute (3) Altered mental status Status: Acute (4) Altered mental status Status: Acute (5) ARF (acute renal failure) Status: Acute (6) CRD (chronic renal disease) Status: Acute (7) Dehydration Status: Acute (8) Dehydration Status: Acute (9) Fever Status: Acute (10) Generalized weakness Status: Acute (11) Hyperkalemia Status: Acute (12) Hyperkalemia Status: Acute (13) Hypomagnesemia Status: Acute (14) PICC (peripherally inserted central catheter) in place Status: Acute (15) Pneumonia Status: Acute (16) Renal failure Status: Acute (17) Renal insufficiency Status: Acute (18) Renal insufficiency Status: Acute (19) Sepsis Status: Acute (20) Sepsis Status: Acute (21) Uremia Status: Acute (22) UTI (urinary tract infection) Status: Acute (23) UTI (urinary tract infection) Status: Acute (24) UTI (urinary tract infection) Status: Acute (25) Weakness Status: Acute (26) Weakness Status: Acute (27) Weakness Status: Acute (28) Weakness Status: Acute (29) Weakness Status: Acute Objective Vital Signs Date Time Temp Pulse Resp B/P Pulse Ox O2 Delivery O2 Flow Rate FiO2 09/24/16 07:45 Nasal Cannula 2.0 09/24/16 07:08 36.8 72 16 135/75 100 2.0 09/24/16 00:37 36.8 64 18 111/64 97 Nasal Cannula 2.0 09/24/16 00:00 Nasal Cannula 2.0 09/23/16 16:00 99 Nasal Cannula 2.0 09/23/16 15:12 36.6 78 16 124/70 99 2.0 Laboratory Results Item Value Date Time Urine Culture - Final Complete 09/20/16 1245 Urine,Catheterized Escherichia Coli Last 24 Hours Test 09/24/16 05:05 Sodium Level 143 mmol/L Potassium Level 3.7 mmol/L Chloride Level 106 mmol/L Carbon Dioxide Level 29 mmol/L Anion Gap 8.0 mmol/L Blood Urea Nitrogen 78 mg/dl Creatinine 3.90 mg/dl Est Creatinine Clear Calc Drug Dose 9.4 ml/min Estimated GFR () 11.6 Estimated GFR (Non- 10.0 BUN/Creatinine Ratio 19.9 Random Glucose 105 mg/dl Calcium Level 8.7 mg/dl Phosphorus Level 3.5 mg/dl Albumin 2.6 gm/dl Assessment and Plan (1) UTI (urinary tract infection) Assessment & Plan: continue rocephin for now, would give 14 days total
[2016-09-24 15:35] VITALS: BP 127/72; PULSE 77; TEMP 36.6; O2SAT 99
[2016-09-24] MEDS: ATORVASTATIN 40 MG TAB PO SCH (21:35)
[2016-09-24] MEDS: ASPIRIN 81 MG ECTAB PO SCH (21:35)
[2016-09-24] MEDS: CLOPIDOGREL BISULFATE 75 MG TAB PO SCH (21:36)
--- NOTE | 2016-09-24 21:40 | Family Medicine Progress Note ---
Progress Note Date of Service Sep 24, 2016. Subjective Pt evaluation today including: conversation w/ patient Patient feels miserable has some nausea does most of the talking in the room. Insists on her going home to regain strength He is not concerned about her kidney function- as it has started to improve and believes it will imprve at home He will have her see. Dr. Corral outpatient. Constitutional: No chills, No fever Respiratory: No cough, No shortness of breath, No sputum, No wheezing Cardiovascular: No chest pain Abdomen: No nausea, No pain, No vomiting Musculoskeletal: No joint pain, No muscle pain Objective Physical Exam General Appearance: no apparent distress Eyes: PERRL, EOMI ENT: hearing grossly normal Neck: supple, no adenopathy Respiratory/Chest: lungs clear, normal breath sounds, no respiratory distress, no accessory muscle use Cardiovascular: regular rate, rhythm Abdomen: normal bowel sounds, non tender, soft Extremities: non-tender, no calf tenderness, + pedal edema Neurologic/Psychiatric: alert, + depressed affect Assessment and Plan 81-year-old female, who presents with 1 week of malaise and decline, as well as increased creatinine suggestive of acute kidney injury. Acute Kidney Injury on ckd stage 4-5 - creatinine improving and 3.9 today, baseline creatinine 2.1. - Follows with Dr. Corral from nephrology - [facility] dc'd - Hydronephrosis persists on renal ultrasound - Patient is status post bilateral stent exchange by urology - Patient has a history of recurrent UTIs; hydronephrosis likely has a chronic component secondary to obstructive uropathy E.coli Urinary tract infection - Continue IV ceftriaxone per ID x 14 days - Patient has PICC line - could continue IV abx outpatient Nausea- chronic - better with zofran. Anemia of chronic disease - Hgb remained stable - Continue to follow; check daily CBC Chronic suppressive therapy for C.diff - Continue Vancomycin 125 mg daily and Probiotic Chronic systolic CHF without exacerbation/hx of TN - Most recent echo on 05/2016 shows mildly reduced ejection fraction 35-40% - Continue home dose of carvedilol - ACEi and ARB are both contraindicated due to acute on chronic kidney injury Chronic oxygen use - ? sleep apnea History of TN/coronary artery disease - Continue aspirin and Plavix - Continue atorvastatin - Continue carvedilol DVT prophylaxis - Heparin sq BID - CODI/SCDs Code Status - Level I Code Disposition - PT and OT - wants her to go home and continue PT/OT there. Reviewed: Pt Seen/Exam by Me History Resident Physician Supervision Note: I interviewed and examined the patient. Discussed with Dr. Greenberg and agree with findings and plan as documented in the note. Any exceptions or clarifications are listed here: Patient feeling better this evening, no more nausea, is tolerating by mouth, afebrile Vitals reviewed Obese, lying in bed, cannot sit up on her own, no acute distress Regular rate and rhythm, no murmurs, rubs Decreased breath sounds at the bases bilaterally, poor inspiratory effort, breathing unlabored Abdomen soft nontender positive bowel sounds Extremities no edema 81-year-old female with history of recurrent UTIs and bilateral ureteral stents here with acute kidney injury in the setting of chronic kidney disease stage IV and UTI with Escherichia coli. Improving, can likely discharge to home tomorrow now that is tolerating by mouth and feeling better, creatinine is improving but not back to baseline yet. -Need to confirm with infectious disease if they're recommending 14 days of IV antibiotics or if can switch to by mouth given that it is susceptible to some by mouth antibiotics -We'll need nephrology follow-up closely as an outpatient - and patient preferred to go home and not to SNF despite her mostly bedbound status Documented By: Davina Tam
[2016-09-25] VITALS: BP 145/68; PULSE 71; TEMP 36.9; O2SAT 97
[2016-09-25] MEDS: ONDANSETRON 4MG OD TAB PO SCH (05:58)
[2016-09-25 07:24] VITALS: BP 135/73; PULSE 76; TEMP 36.8; O2SAT 98
[2016-09-25 08:38] LABS: BUN/CREATININE RATIO 18.4 (10-20); CALCIUM 8.7 mg/dl (8.5-10.1); CREATININE 3.8 mg/dl (0.60-1.20); POTASSIUM 3.9 mmol/L (3.5-5.1)
[2016-09-25] MEDS: NYSTATIN POWDER 15GM BTL EXT SCH (08:39)
[2016-09-25] MEDS: LOTEPREDNOL ETABONATE 0.5% OPB SCH (08:39)
[2016-09-25] MEDS: CHOLECALCIFEROL 1000 INTER.UNIT TAB PO SCH (08:41)
[2016-09-25] MEDS: CEROVITE ADV FORMULA TAB PO SCH (08:41)
[2016-09-25] MEDS: CARVEDILOL 25 MG TAB PO SCH (08:42)
[2016-09-25] MEDS: RASPBERRY SYRUP 5 ML UDP PO SCH (08:42)
[2016-09-25] MEDS: VANCOMYCIN HCL 125 MG/2.5ML SOLN PO SCH (08:42)
[2016-09-25] MEDS: PANTOprazole SOD 40 MG TAB PO SCH (08:42)
[2016-09-25] MEDS: HEPARIN SOD 5000 UNIT/0.5 ML CARP SQ SCH (08:47)
--- NOTE | 2016-09-25 10:05 | Nephrology Progress Note ---
Nephrology Progress Note Date of Service Sep 25, 2016. Chief Complaint BONNIE/CKD Subjective No acute events overnight. No complaints this morning. Nausea resolved. Appetite good this morning. The patient and her are very hopeful that she can be discharged home today. They express confidence that Tiana will be able to maintain appropriate fluid intake. Review of Systems A complete review of systems was performed. Pertinent positives are noted above. All other systems are negative. Vital Signs Last 8 Hrs Date Time Temp Pulse Resp B/P Pulse Ox O2 Delivery O2 Flow Rate FiO2 09/25/16 07:24 36.8 76 20 135/73 98 I & O 24-Hour Column 09/25/16 08:00 Intake Total 220 ml Balance 220 ml Last Recorded Weight Weight (Kilograms): 61.000 Physical Exam General Appearance: WD/WN, no apparent distress Head: normocephalic, atraumatic Eyes: PERRL, sclerae normal ENT: normal ENT inspection, pharynx normal, + pertinent finding (oral mucosa slightly dry) Neck: supple, no JVD Respiratory/Chest: lungs clear, no respiratory distress, no accessory muscle use Cardiovascular: regular rate, rhythm, no gallop Abdomen/GI: non tender, soft Extremities/Musculoskelatal: normal inspection, no pedal edema Neurologic/Psych: alert, normal mood/affect Family History Other cardiovascular diseases Social History Smoking Status: Never smoker Drug Use: none Marital Status: Housing Status: lives with family, senior care 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 Laboratory Results Past 24 Hours 09/25/16 08:00 Test 09/25/16 08:00 Anion Gap 8.0 mmol/L (3-11) Est Creatinine Clear Calc Drug Dose 9.7 ml/min Estimated GFR () 12.0 Estimated GFR (Non- 10.4 BUN/Creatinine Ratio 18.4 (10-20) Calcium Level 8.7 mg/dl (8.5-10.1) Allergies Coded Allergies: Sulfa Antibiotics (Verified Allergy, Intermediate, BODY SWELLING,NAUSEA AND VOMITNG, 09/20/16) Penicillins (Verified Allergy, Unknown, Tolerates Primaxin, 09/20/16) PER PCP RECORDS Medications Current Inpatient Medications Medications (Trade) Dose Ordered Sig/Helder Route Start Time Stop Time Status Last Admin Dose Admin Acetaminophen (Tylenol Tab) 650 mg Q4H PRN PO 09/20/16 13:15 10/20/16 13:14 Al Hydrox/Mg Hydrox/Simethicone (Maalox Max Susp) 15 ml Q4H PRN PO 09/20/16 13:15 10/20/16 13:14 Magnesium Hydroxide (Milk Of Magnesia Susp) 30 ml Q6H PRN PO 09/20/16 13:15 10/20/16 13:14 Polyethylene (Miralax Powder Packet) 17 gm DAILY PRN PO 09/20/16 13:15 10/20/16 13:14 Ondansetron HCl (Zofran Inj) 4 mg Q6H PRN IV 09/20/16 13:15 10/20/16 13:14 09/23/16 06:48 4 MG Heparin Sodium (Porcine) (Heparin Sq 5000 Unit/0.5ml) 5,000 unit Q12H SQ 09/20/16 21:00 10/20/16 20:59 09/25/16 08:47 5,000 UNIT Aspirin (Ecotrin Tab) 81 mg QPM PO 09/20/16 21:00 10/20/16 20:59 09/24/16 21:35 81 MG Atorvastatin Calcium (Lipitor Tab) 80 mg QPM PO 09/20/16 21:00 10/20/16 20:59 09/24/16 21:35 80 MG Carvedilol (Coreg Tab) 25 mg BID PO 09/20/16 21:00 10/20/16 20:59 09/25/16 08:42 25 MG Cholecalciferol (Vitamin D Tab) 1,000 inter.unit DAILY PO 09/21/16 09:00 10/21/16 08:59 09/25/16 08:41 1,000 INTER.UNIT Clopidogrel Bisulfate (plAVix TAB) 75 mg QPM PO 09/20/16 21:00 10/20/16 20:59 09/24/16 21:36 75 MG Lorazepam (Ativan Tab) 0.5 mg Q6H PRN PO 09/20/16 13:15 10/20/16 13:14 Multivitamins/ Minerals (Multivitamin W/ Minerals Tab) 1 tab QAM PO 09/21/16 09:00 10/21/16 08:59 09/25/16 08:41 1 TAB Nystatin (Mycostatin Powder) 1 appln BID EXT 09/20/16 21:00 10/20/16 20:59 09/25/16 08:39 1 APPLN Pantoprazole Sodium (Protonix Tab) 40 mg QAM PO 09/21/16 09:00 10/21/16 08:59 09/25/16 08:42 40 MG Vancomycin HCl (Vancomycin Oral Soln) 125 mg QAM PO 09/21/16 09:00 10/21/16 08:59 09/25/16 08:42 125 MG Febuxostat (Uloric) 40 mg DAILY@1200 PO 09/20/16 14:30 10/20/16 14:29 09/24/16 12:05 40 MG Raspberry (Raspberry Syrup 5ml Cup) 5 ml QAM PO 09/21/16 09:00 10/05/16 08:59 09/25/16 08:42 5 ML Miscellaneous Information (Order Awaiting Action) 1 ea QS N/A 09/20/16 16:00 10/20/16 15:59 Heparin Sodium (Porcine) (Heparin 10 Unit/ ml 5 ml Flush) 5 ml PRN PRN FLUSH 09/20/16 23:45 10/20/16 23:44 09/25/16 08:00 5 ML Ondansetron HCl (Zofran Odt) 4 mg DAILYBB PO 09/21/16 09:59 10/21/16 09:58 09/25/16 05:58 4 MG Calcitriol (Rocaltrol Cap) 0.25 mcg MoWeFr@0900 PO 09/21/16 11:00 10/21/16 10:59 09/24/16 09:31 0.25 MCG Loteprednol Etabonate 1 drops 1 drops DAILY OPB 09/22/16 09:00 10/22/16 08:59 09/25/16 08:39 1 DROPS Ceftriaxone Sodium/Dextrose (Rocephin Inj/ Dextrose Add-[place] 50ML) 50 ml @ 100 mls/hr Q24H IV 09/22/16 11:00 10/02/16 08:44 09/24/16 11:12 100 MLS/HR Impression (1) Acute renal failure superimposed on stage 4 chronic kidney disease (2) Metabolic acidosis (3) Recurrent UTI (4) Bilateral hydronephrosis (5) Secondary hyperparathyroidism of renal origin (6) Anemia (7) Ischemic cardiomyopathy (8) Generalized weakness Mrs. Chase is a 81-year-old female with multiplemedical comorbidities including CHF with ejection fraction 20-25%, hypertension, advanced CKD ( baseline creatinine ~3.0 mg/dL), recurrent urinary tract infection, obstructive uropathy and recurrent episodes of acute kidney injury. She presented to the hospital with acute kidney injury and urinary tract infection with E coli. She remains on treatment with ceftriaxone. Tiana has chronic anemia of CKD and secondary hyperparathyroidism. Tiana and her family previously decided not to consider renal replacement therapy. She has indwelling ureteral stents and has refused percutaneous nephrostomy for bilateral hydronephrosis. Urine output appropriate. On admission creatinine was 5.7. Renal function showing improvement with treatment of UTI and a positive fluid balance. Renal ultrasound showed bilateral moderate hydronephrosis. This is chronic. Ureteral stent was exchanged on 08/21/16. Urology did not feel that intervention was necessary at this time. Recommendations -- Encourage intake of at least 2 liters of fluid daily -- Repeat metabolic profile within 1 week of discharge -- Follow up with Dr. Corral in the clinic within 2 weeks of discharge -- Epoetin 32893 units given 09/21/16 -- Iron profile appropriate -- Continue calcitriol 0.25 micrograms them 3 times per week -- Plan of care discussed with Dr. Tam this morning
[2016-09-25] MEDS ORDERED: CEFD1CAP14 PO (10:28)
--- NOTE | 2016-09-25 10:42 | Discharge Instructions ---
Discharge Instructions Date of Service Sep 25, 2016. Admission Reason for Admission: Acute Kidney Injury Discharge Discharge Diagnosis / Problem: Acute on chronic kidney disease, Recurrent UTI Discharge Goals Goal(s): Decrease discomfort, Prevent Disease Progression Activity Recommendations Activity Limitations: as noted below (s) Lifting Limitations: gradually increase as tolerated Exercise/Sports Limitations: gradually increase as tolerated May Resume Sexual Activity: when tolerated Driving or Machine Use: no limitations . Instructions / Follow-Up Instructions / Follow-Up Dear Mrs. Chase, You were admitted to the hospital due to worsening of your baseline kidney function in conjunction with a urinary tract infection. Your kidney function has improved after treatment. You will need to complete 14 days of antibiotics. Please continue Physical therapy at home. Additional instructions from Nephrology: -- Drink least 2 liters of fluid daily -- Repeat blood work at PCP's office - BMP within 1 week. -- Follow up with Dr. Corral in the clinic within 2 weeks of discharge -- Continue calcitriol 0.25 micrograms 3 times per week Case management will help facilitate appointments. If you have any concerns or new symptoms, please call your PCP or go to the ER. Thank you. Current Hospital Diet Patient's current hospital diet: Regular Diet, Low Potassium Diet (2g K) Discharge Diet Recommended Diet: Renal Diet Fluid Restriction: 2000 ml (8 cups) Pending Studies Studies pending at discharge: no Medical Emergencies . Who to Call and When: Medical Emergencies: If at any time you feel your situation is an emergency, please call 911 immediately. . Non-Emergent Contact Non-Emergency issues call your: Primary Care Provider Call Non-Emergent contact if: temperature is above 101, your pain is worsening . . "Provider Documentation" section prepared by Sadie Juarez. VTE Core Measure Inpt VTE Proph given/why not?: Unfractionated heparin SQ, T.E.D. Stockings, SCD 's
--- NOTE | 2016-09-25 10:43 | Discharge Summary ---
Discharge Summary Date of Service Sep 25, 2016. (Sadie Greenberg MD) Discharge Summary Admission Date: Sep 20, 2016 at 13:36 Discharge Date: Sep 25, 2016 Discharge Disposition: Home Principal Diagnosis: BONNIE on CKD Problems/Secondary Diagnoses: UTI Immunizations: Have You Had Influenza Vaccine: Yes Influenza Vaccine Date: Mar 17, 2010 History of Tetanus Vaccine?: No History of Pneumococcal: No Pneumococcal Date: Jun 06, 2011 History of Hepatitis B Vaccine: No Procedures: KUB HISTORY: eval urinary stents COMPARISON: KUB 06/12/2016. FINDINGS: The bowel gas pattern is unremarkable. There are no dilated loops of small bowel to suggest an obstruction. No renal calculi. No ureteral calculi. Cholecystectomy. Bilateral ureteral stents appear to be in good position. Stable punctate calcification within the left deep pelvis favors a phlebolith. Moderate osteoarthritis within the bilateral hips. Mild levoscoliosis of the lumbar spine. Round calcification within the left midabdomen superior to the left renal stent remains stable. This likely represents a vascular calcification. IMPRESSION: The bilateral ureteral stents appear in good position. No renal or ureteral calculi. EXAMINATION: RENAL ULTRASOUND CLINICAL HISTORY: Bilateral ureteral stents. Evaluate for hydronephrosis. COMPARISON STUDY: 04/16/2016 FINDINGS: The right kidney measures 10.2 cm. The left kidney measures 9 cm. There is moderate bilateral hydronephrosis. There is bilateral renal cortical thinning more severe in the right. Bilateral left ureteral stents are visualized. There are no renal masses. The bladder was nearly empty at the time of scanning. The distal aspect of both ureteral stents was visualized in the bladder. IMPRESSION : 1. Significantly limited study from a technical standpoint, as the patient was uncooperative 2. Moderate bilateral hydronephrosis with bilateral renal cortical thinning. 3. Bilateral nephroureteral stents are visualized CHEST ONE VIEW PORTABLE CLINICAL HISTORY: PICC line placement confirmation COMPARISON STUDY: Chest radiograph August 18, 2016. FINDINGS: The tip of the right PICC projects over the cavoatrial junction. A left subclavian pacer/AICD is in place. There may be trace bilateral pleural effusions. There is no pneumothorax. There is no evidence of pulmonary edema. Cardiomegaly is noted. IMPRESSION: Tip of right PICC projects over cavoatrial junction. Consultations: Urology Nephrology Infectious disease (Sadie Greenberg MD) Problems/Secondary Diagnoses: Chronic kidney disease stage IV Chronic moderate bilateral Hydronephrosis Indwelling bilateral ureteral stents Chronic Nausea Anemia of chronic renal disease Chronic suppressive therapy for C.diff Chronic systolic CHF without exacerbation CAD Chronic respiratory failure Ambulatory dysfunction Chronic debilitation History of recurrent UTIs (Davina Tam MD) Medication Reconciliation New Medications: Cefdinir (Omnicef) 300 Mg Cap 300 MG PO Q24H for 14 Days, #14 CAP Continued Medications: Aspirin (Aspirin) 81 Mg Tab 81 MG PO QPM Atorvastatin (Lipitor) 80 Mg Tab 80 MG PO QPM Carvedilol (Carvedilol) 25 Mg Tab 25 MG PO BID Cholecalciferol (Vitamin D3) 1,000 Unit Tab 1 TAB PO DAILY for 90 Days, #90 TAB 3 Refills Clopidogrel Bisulfate (Clopidogrel) 75 Mg Tab 75 MG PO QPM WAS NOT INSTRUCTED TO HOLD Febuxostat (Uloric) 40 Mg Tab 40 MG PO NOON TAKE THIS MEDICATION DAILY WITH LUNCH Furosemide (Lasix) 20 Mg Tab 20 MG PO QAM, TAB Lorazepam (Ativan) 0.5 Mg Tab 0.5 MG PO Q6H PRN for Anxiety, TAB Loteprednol Etabonate (Lotemax) 0.5 % Gel 1 DROP OPB QAM Multiple Vitamins W/ Minerals (Centrum Silver Ultra Wome) 1 Tab Tab 1 TAB PO QAM Nystatin (Nystop) 45 Appln/15 Gm Powd 1 DOSE TOP BID Ondasetron Odt (Zofran Odt) 4 Mg Tab 4 MG PO Q6H PRN for Nausea Pantoprazole (Pantoprazole Sodium) 40 Mg Tab 40 MG PO QAM Probiotic Product (Probiotic) 1 Cap Cap 1 TAB PO QPM Sodium Bicarbonate (Sodium Bicarbonate) 650 Mg Tab 1 TAB PO QAM Vancomycin Hcl (Vancomycin) 125 Mg Cap 125 MG PO QAM Discharge Exam This is an 81 y/o female, with PMHx multiple recurrences of BONNIE in the setting of CKD stage 4, recurrent UTIs with MDRO including Klebsiella, obstructive uropathy (with recent bilateral ureteral stent exchange), CHF, HTN, HI, DM II, who presented to the ED with 1 week of malaise and BONNIE. The patient had some blood work through her home health services that revealed a Cr. of 5.7 and was recommended to go to the ER by nephrology. She was again found to have a UTI here (growing E.coli) and was started on Cefepime. She was evaluated by Urology who did not feel that her stents were the cause of her BONNIE and did not recommend any interventions. She was also seen by Nephrology who made recommendations on fluids and management of her BONNIE on CKD/Anemia. Infectious disease was consulted as well and made recommendations on choice of antibiotics. Her Acute kidney injury was treated with IV fluids containing dextrose and bicarb. Her creatinine eventually improved and her antibiotics were transitioned to PO cefdinir. Her PICC was maintained on discharge; due to recurrent infections. She was advised to have short term rehab but her and her requested to go home instead of SNF due to her physical status. She is to have close follow up with nephrology and PCP. She was otherwise stable for discharge. Appointments were facilitated by CM. All other chronic co-morbidities and acute conditions were managed appropriately. Review of Systems: Constitutional: + fatigue, + weakness, No chills, No fever, No sweats Eyes: No worsening of vision ENT: No hearing loss Respiratory: No cough, No dyspnea at rest, No dyspnea on exertion, No shortness of breath, No sputum, No wheezing Cardiovascular: No chest pain Abdomen: No constipation, No diarrhea, No nausea, No pain, No vomiting Musculoskeletal: No joint pain Genitourinary - Female: No dysuria, No urinary frequency, No urinary urgency Physical Exam: General Appearance: no apparent distress Eyes: PERRL, EOMI ENT: hearing grossly normal Neck: no adenopathy, thyroid normal Respiratory/Chest: no respiratory distress, no accessory muscle use, + decreased breath sounds Cardiovascular: regular rate, rhythm, no edema, normal peripheral pulses Abdomen / GI: normal bowel sounds, non tender, soft Extremities: no calf tenderness, + pedal edema Neurologic/Psychiatric: alert, oriented x 3, + depressed affect (Sadie Greenberg MD) Hospital Course Total Time Spent: Greater than 30 minutes This includes examination of the patient, discharge planning, medication reconciliation, and communication with other providers. (Sadie Greenberg MD) Discharge Instructions Please refer to the electronic Patient Visit Report (Discharge Instructions) for additional information. (Sadie Greenberg MD) Reviewed: Pt Seen/Exam by Me (Davina Tam MD) History Resident Physician Supervision Note: I interviewed and examined the patient. Discussed with Dr. Greenberg and agree with findings and plan as documented in the note. Any exceptions or clarifications are listed here: Patient feeling better, no more nausea, is tolerating by mouth, afebrile. Vitals reviewed Obese, lying in bed, cannot sit up on her own, no acute distress Regular rate and rhythm, no murmurs, rubs Decreased breath sounds at the bases bilaterally, poor inspiratory effort, breathing unlabored Abdomen soft nontender positive bowel sounds Extremities no edema 81-year-old female with history of recurrent UTIs and bilateral ureteral stents here with acute kidney injury in the setting of chronic kidney disease stage IV and UTI with Escherichia coli. Improving, can discharge to home now that is tolerating by mouth and feeling better, creatinine is improving but not back to baseline yet. -Omnicef for a total 14 days renally dosed -We'll need nephrology follow-up closely as an outpatient - and patient preferred to go home and not to SNF despite her mostly bedbound status Acute Kidney Injury on ckd stage 4-5 - creatinine improving and 3.9 today, baseline creatinine 2.1. - Follows with Dr. Corral from nephrology - Grabiel dc'd - Hydronephrosis persists on renal ultrasound - Patient is status post bilateral stent exchange by urology - Patient has a history of recurrent UTIs; hydronephrosis likely has a chronic component secondary to obstructive uropathy E.coli Urinary tract infection -Was on cefepime and then transitioned to IV ceftriaxone per ID consult - Patient has PICC line Nausea- chronic - better with zofran. Anemia of chronic disease - Hgb remained stable - Continue to follow as an outpatient Chronic suppressive therapy for C.diff - Continue Vancomycin 125 mg daily and Probiotic Chronic systolic CHF without exacerbation/hx of HI - Most recent echo on 05/2016 shows mildly reduced ejection fraction 35-40% - Continue home dose of carvedilol - ACEi and ARB are both contraindicated due to acute on chronic kidney injury Chronic respiratory failure-uses nocturnal O2 - ? sleep apnea History of HI/coronary artery disease - Continue aspirin and Plavix - Continue atorvastatin - Continue carvedilol DVT prophylaxis - Heparin sq BID - CODI/SCDs Code Status - Level I Code Disposition - PT and OT - wants her to go home and continue PT/OT there. Documented By: Davina Tam (Davina Tam MD)
[2016-09-25] MEDS: CEFTRIAXONE SOD INJ 1 GM in DEXTROSE 5% ADD-VANTAGE 50ML 50 ML IV SCH (10:55)
[2016-09-25 11:04] VITALS: BP 135/73; PULSE 76; TEMP 36.8; O2SAT 98
[2016-09-25] MEDS: FEBUXOSTAT 40 MG TAB PO SCH (12:57)
[2016-11-05] MEDS ORDERED: CARV12.52 PO (08:41)
[2016-12-04] MEDS ORDERED: CPR500 PO (09:01)
[2016-12-04] MEDS ORDERED: METR-162 PO (09:01)
== END 2016-09-25 15:28 | disposition home health service (06) | DRG 682 ==
LOC: ENRESERVTM → ENRESERVDT → EDBD 11:39 → C.EDB 11:41 → C.MS2W 13:36 → EDBEDREQ 14:03
PROVIDERS: ADMIT Internal Medicine; ATTEND Family Medicine
DX: N17.9 Acute kidney failure, unspecified (principal); G93.41 Metabolic encephalopathy; N39.0 Urinary tract infection, site not specified; E87.2 Acidosis; A04.7 Enterocolitis due to Clostridium difficile; E87.3 Alkalosis; I50.22 Chronic systolic (congestive) heart failure; I13.2 Hypertensive heart and chronic kidney disease with heart failure and with stage 5 chronic kidney disease, or end stage renal disease; J96.10 Chronic respiratory failure, unspecified whether with hypoxia or hypercapnia; N25.81 Secondary hyperparathyroidism of renal origin; E86.0 Dehydration; I27.2 Other secondary pulmonary hypertension; E78.00 Pure hypercholesterolemia, unspecified; D63.8 Anemia in other chronic diseases classified elsewhere; N18.5 Chronic kidney disease, stage 5; I25.5 Ischemic cardiomyopathy; R53.1 Weakness; E11.22 Type 2 diabetes mellitus with diabetic chronic kidney disease; G47.30 Sleep apnea, unspecified; R11.0 Nausea; I25.10 Atherosclerotic heart disease of native coronary artery without angina pectoris; B96.20 Unspecified Escherichia coli [E. coli] as the cause of diseases classified elsewhere; N13.30 Unspecified hydronephrosis; Z96.0 Presence of urogenital implants; I08.1 Rheumatic disorders of both mitral and tricuspid valves; I25.2 Old myocardial infarction; Z95.810 Presence of automatic (implantable) cardiac defibrillator; Z87.440 Personal history of urinary (tract) infections; Z86.19 Personal history of other infectious and parasitic diseases; Z99.81 Dependence on supplemental oxygen; Z79.82 Long term (current) use of aspirin; Z79.02 Long term (current) use of antithrombotics/antiplatelets; Z79.899 Other long term (current) drug therapy; Z86.39 Personal history of other endocrine, nutritional and metabolic disease

== ENCOUNTER → 2016-09-20 | Outpatient (CLI) | payer MEDICARE ==
[2016-09-20 08:53] LABS: HEMATOCRIT 32.6 % (37-47); MEAN CELL VOLUME 95.3 fL (80-100); MEAN CORPUSCULAR HEMOGLOBIN 30.7 pg (25-34); MEAN CORPUSCULAR HGB CONC 32.2 g/dl (32-36); MEAN PLATELET VOLUME 10.1 fL (7.4-10.4); PLATELET COUNT 182 K/uL (130-400); RED BLOOD COUNT 3.42 M/uL (4.2-5.4); WHITE BLOOD COUNT 11.26 K/uL (4.8-10.8)
[2016-09-20 09:04] LABS: BLOOD UREA NITROGEN 138 mg/dl (7-18); BUN/CREATININE RATIO 24.2 (10-20); CALCIUM 8.7 mg/dl (8.5-10.1); CARBON DIOXIDE 15 mmol/L (21-32); CHLORIDE 115 mmol/L (98-107); GLUCOSE 129 mg/dl (70-99); PHOSPHORUS 5.8 mg/dl (2.5-4.9); POTASSIUM 4.9 mmol/L (3.5-5.1); SODIUM 142 mmol/L (136-145)
== END | disposition home or self-care (01) ==
LOC: C.LABSPEC 08:16
PROVIDERS: ATTEND Internal Medicine Nephrology
DX: N17.9 Acute kidney failure, unspecified (principal); N18.9 Chronic kidney disease, unspecified

== ENCOUNTER → 2016-10-02 | Outpatient (CLI) | payer MEDICARE ==
[~2016-10-02] MED LIST changes: +CARV12.52 PO; +CEFD1CAP14 PO; +COCO1OIL2 PO; +CPR500 PO; +CRAN1TAB PO; +CRANBERRY PO; +FURO-85 PO; +METR-162 PO; +SODI650T8 PO
[2016-10-02 07:58] LABS: BLOOD UREA NITROGEN 53 mg/dl (7-18); BUN/CREATININE RATIO 15.5 (10-20); CALCIUM 7.8 mg/dl (8.5-10.1); CARBON DIOXIDE 22 mmol/L (21-32); CHLORIDE 115 mmol/L (98-107); GLUCOSE 122 mg/dl (70-99); POTASSIUM 3.8 mmol/L (3.5-5.1); SODIUM 148 mmol/L (136-145)
== END | disposition home or self-care (01) ==
LOC: C.LABSPEC 07:41
PROVIDERS: ATTEND Internal Medicine Nephrology
DX: N18.4 Chronic kidney disease, stage 4 (severe) (principal)

== ENCOUNTER 2016-10-12 15:20 | Inpatient (IN) | payer MEDICARE, OTHER ==
[~2016-10-12] VITALS: Ht 162.6 cm; Wt 67.1 kg
[~2016-10-12 15:20] MED LIST changes: -CARV12.52 PO; -CEFD1CAP14 PO; -COCO1OIL2 PO; -CPR500 PO; -CRAN1TAB PO; -CRANBERRY PO; -METR-162 PO
[2016-10-12] MEDS ORDERED: SODIUM CHLORIDE 0.9% 1000ML 1,000 ML IV STA (16:03)
[2016-10-12 16:24] LABS: BASO % 0.6 %; BASO ABS # 0.05 K/uL (0-0.2); COMPLETE YES; EOS % 4.2 %; HEMATOCRIT 32.1 % (37-47); IG% 4.1 %; LYMPH % 34.2 %; LYMPH ABS # 2.78 K/uL (1.2-3.4); MEAN CELL VOLUME 99.1 fL (80-100); MEAN CORPUSCULAR HEMOGLOBIN 30.9 pg (25-34); MEAN CORPUSCULAR HGB CONC 31.2 g/dl (32-36); MONO % 4.9 %; PLATELET COUNT 159 K/uL (130-400); RED BLOOD COUNT 3.24 M/uL (4.2-5.4); WHITE BLOOD COUNT 8.13 K/uL (4.8-10.8)
[2016-10-12 16:53] LABS: URINE APPEARANCE TURBID (CLEAR); URINE BILIRUBIN NEG (NEG); URINE COLOR DK YELLOW; URINE EPITHELIAL CELL AUTO >30 /lpf (0-5); URINE NITRITE NEG (NEG); URINE SPECIFIC GRAVITY 1.016 (1.000-1.030); UROBILINOGEN NEG (NEG)
[2016-10-12 16:55] LABS: MANUAL MICROSCOPIC REQUIRED? NO; REVIEW REQ? YES
--- NOTE | 2016-10-12 16:59 | DIAGNOSTIC IMAGING REPORT ---
CHEST ONE VIEW PORTABLE CLINICAL HISTORY: Weakness. COMPARISON STUDY: Chest radiograph September 21, 2016. FINDINGS: A right PICC remains in place. There is a left subclavian pacer/AICD. Cardiomegaly is unchanged. There is a trace left pleural effusion. There is no pneumothorax. Mild bibasilar opacities favor atelectasis. There is pulmonary vascular congestion. IMPRESSION: 1. Pulmonary vascular congestion with a trace left pleural effusion. 2. Stable cardiomegaly. 3. Bibasilar opacities. Atelectasis is favored although consolidation could appear similar. Electronically signed by: Mckinley Winklre M.D. 10/12/2016 4:58 PM Dictated Date/Time: 10/12/2016 4:57 PM
[2016-10-12 17:04] LABS: ALKALINE PHOSPHATASE 69 U/L (45-117); ALT/SGPT 16 U/L (12-78); AST/SGOT 10 U/L (15-37); BLOOD UREA NITROGEN 89 mg/dl (7-18); BUN/CREATININE RATIO 14.9 (10-20); CALCIUM 7.7 mg/dl (8.5-10.1); CARBON DIOXIDE 24 mmol/L (21-32); CHLORIDE 110 mmol/L (98-107); GLUCOSE 102 mg/dl (70-99); POTASSIUM 5.4 mmol/L (3.5-5.1); SODIUM 141 mmol/L (136-145)
[2016-10-12] MEDS ORDERED: PIPERACILLIN/TAZOBACTAM 3.375 GM/100ML D5W IV STA (17:08)
[2016-10-12] MEDS ORDERED: DiphenhydrAMINE HCL 50 MG/ML VIAL IV STA (17:14)
--- NOTE | 2016-10-12 18:43 | EMERGENCY ROOM VISIT NOTE ---
History Report prepared by Harrison: Shannon Drummond Under the Supervision of: Dr. Eleno Bustillos D.O. First contact with patient: 15:52 Chief Complaint: HYPOTENSION Stated Complaint: WEAKNESS/ HYPOTENSIVE PER History of Present Illness The patient is a 81 year old female who presents to the Emergency Room with complaints of persistent hypotension starting 2 days [employer]. The patient's state that he has been taking the patients vital for the last 7 years since the patient's heart attack. He states that before 2 days ago her blood pressure has been very normal. He states that 2 days ago she had blood pressure of 90/38 mmHg. The patient's states that the patient had a recent UTI and has finished her antibiotics yesterday. He states he has noticed the patient also has been more hostile recently which is not normal for her. He states that she has also had a slight runny nose. The patient's states that she has also been complaining of worsening right leg pain in which she has arthritis. The patient denies any chest pain, sob, abdominal pain, headache or nausea. The patient's states that the patient had a normal bowel movement this morning. The patient's states that the patient has a PICC line on her right side due to thin veins and he flushes the line daily with her heparin. The states that the patient has not been drinking as much fluid as she should the last few days. He states that he has also talked to the patient's PCP and they informed him to stop giving the patient her blood pressure medication daily. Source of History: patient, spouse/significant other () Onset: 2 days [employer] Position: other (global) Timing: other (persistent) Associated Symptoms: No SOB, No abdominal pain, No chest pain, No headache, No nausea Note: Associated symptoms: right leg pain, slightly runny nose. Review of Systems See above for pertinent positives & negatives. A total of 10 systems reviewed and were otherwise negative. Past Medical & Surgical Medical Problems: (1) Acute hypernatremia (2) Acute kidney injury (3) Acute on chronic renal failure (4) Acute renal failure superimposed on stage 4 chronic kidney disease (5) Acute urinary tract infection (6) Anemia (7) Benign hypertension (8) Cardiac catheterization (9) CHF (congestive heart failure) (10) CHF (congestive heart failure) (11) Cholecystectomy (12) Chronic kidney disease (13) CKD (chronic kidney disease) stage 5, GFR less than 15 ml/min (14) Coronary artery disease (15) Dehydration (16) Diabetes (17) Hypotension (18) Ischemic cardiomyopathy (19) Metabolic acidosis (20) Metabolic acidosis with increased anion gap and reduced excretion of inorganic acids (21) Myocardial infarction (22) Pneumonia (23) 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 (24) Recurrent UTI (25) Secondary hyperparathyroidism of renal origin (26) Sepsis (27) Sepsis due to Klebsiella (28) sepsis recurrent UTI BONNIE on ckd (29) Systolic CHF (30) UTI (urinary tract infection) (31) UTI (urinary tract infection) (32) UTI (urinary tract infection) (33) UTI, altered mental status (34) Weakness Surgical Problems: (1) History of cholecystectomy (2) History of ureter stent Family History Other cardiovascular diseases Social History Smoking Status: Never Smoker Alcohol Use: none Drug Use: none Marital Status: Housing Status: lives with significant other Occupation Status: retired Current/Historical Medications Scheduled Aspirin (Aspirin), 81 MG PO QPM Atorvastatin (Lipitor), 80 MG PO QPM Carvedilol (Carvedilol), 25 MG PO BID Cholecalciferol (Vitamin D3), 1 TAB PO DAILY Clopidogrel Bisulfate (Clopidogrel), 75 MG PO QPM Febuxostat (Uloric), 40 MG PO NOON Furosemide (Lasix), 20 MG PO QAM Loteprednol Etabonate (Lotemax), 1 DROP OPB QAM Multiple Vitamins W/ Minerals (Centrum Silver Ultra Wome), 1 TAB PO QAM Nystatin (Nystop), 1 DOSE TOP BID Pantoprazole (Pantoprazole Sodium), 40 MG PO QAM Probiotic Product (Probiotic), 1 TAB PO QPM Sodium Bicarbonate (Sodium Bicarbonate), 1 TAB PO QAM Vancomycin Hcl (Vancomycin), 125 MG PO QAM Scheduled PRN Lorazepam (Ativan), 0.5 MG PO Q6H PRN for Anxiety Ondasetron Odt (Zofran Odt), 4 MG PO Q6H PRN for Nausea Allergies Coded Allergies: Sulfa Antibiotics (Verified Allergy, Intermediate, BODY SWELLING,NAUSEA AND VOMITNG, 10/12/16) Penicillins (Verified Allergy, Unknown, Tolerates Primaxin, 10/12/16) PER PCP RECORDS Physical Exam Vital Signs Date Time Temp Pulse Resp B/P Pulse Ox O2 Delivery O2 Flow Rate FiO2 10/12/16 19:00 74 25 107/52 100 Nasal Cannula 2.0 10/12/16 18:36 58 18 108/52 100 10/12/16 18:09 74 18 96/52 98 Room Air 10/12/16 16:30 73 18 96/52 99 Room Air 10/12/16 15:31 81 10/12/16 15:29 37.0 82 24 109/58 98 Nasal Cannula 2.0 10/12/16 15:29 98 Nasal Cannula 2.0 Physical Exam GENERAL: Sitting up in bed, disheveled, on nasal canula, chronically ill appearing. EYE EXAM: normal conjunctiva OROPHARYNX: no exudate, no erythema, lips, buccal mucosa, and tongue normal and mucous membranes are moist NECK: supple, no nuchal rigidity, no adenopathy, non-tender LUNGS: Course sounds in bilateral bases. Normal chest wall mechanics HEART: no murmurs, S1 normal and S2 normal ABDOMEN: abdomen soft, non-tender, normo-active bowel sounds, no masses, no rebound or guarding. BACK: Back is symmetrical on inspection and there is no deformity, no midline tenderness, no CVA tenderness. SKIN: Macular papular rash on the upper chest and lower extremities. UPPER EXTREMITIES: upper extremities are grossly normal. LOWER EXTREMITIES: No pitting edema. NEURO EXAM: Oriented to person place and name but not year, no gross weakness of arms, no gross weakness of legs, cranial nerves grossly intact. Medical Decision & Procedures ER Provider Diagnostic Interpretation: Radiology results as stated below per my review and the radiologist's interpretation: CHEST ONE VIEW PORTABLE CLINICAL HISTORY: Weakness. COMPARISON STUDY: Chest radiograph September 21, 2016. FINDINGS: A right PICC remains in place. There is a left subclavian pacer/AICD. Cardiomegaly is unchanged. There is a trace left pleural effusion. There is no pneumothorax. Mild bibasilar opacities favor atelectasis. There is pulmonary vascular congestion. IMPRESSION: 1. Pulmonary vascular congestion with a trace left pleural effusion. 2. Stable cardiomegaly. 3. Bibasilar opacities. Atelectasis is favored although consolidation could appear similar. Electronically signed by: Mckinley Winkler M.D. 10/12/2016 4:58 PM Dictated Date/Time: 10/12/2016 4:57 PM Laboratory Results 10/12/16 16:10 Red Blood Count 3.24, Mean Corpuscular Volume 99.1, Mean Corpuscular Hemoglobin 30.9, Mean Corpuscular Hemoglobin Concent 31.2, Mean Platelet Volume 9.0, Neutrophils (%) (Auto) 52.0, Lymphocytes (%) (Auto) 34.2, Monocytes (%) (Auto) 4.9, Eosinophils (%) (Auto) 4.2, Basophils (%) (Auto) 0.6, Neutrophils # (Auto) 4.23, Lymphocytes # (Auto) 2.78, Monocytes # (Auto) 0.40, Eosinophils # (Auto) 0.34, Basophils # (Auto) 0.05 10/12/16 16:10 Test 10/12/16 16:10 10/12/16 16:21 White Blood Count 8.13 K/uL (4.8-10.8) Red Blood Count 3.24 M/uL (4.2-5.4) Hemoglobin 10.0 g/dL (12.0-16.0) Hematocrit 32.1 % (37-47) Mean Corpuscular Volume 99.1 fL (80-100) Mean Corpuscular Hemoglobin 30.9 pg (25-34) Mean Corpuscular Hemoglobin Concent 31.2 g/dl (32-36) Platelet Count 159 K/uL (130-400) Mean Platelet Volume 9.0 fL (7.4-10.4) Neutrophils (%) (Auto) 52.0 % Lymphocytes (%) (Auto) 34.2 % Monocytes (%) (Auto) 4.9 % Eosinophils (%) (Auto) 4.2 % Basophils (%) (Auto) 0.6 % Neutrophils # (Auto) 4.23 K/uL (1.4-6.5) Lymphocytes # (Auto) 2.78 K/uL (1.2-3.4) Monocytes # (Auto) 0.40 K/uL (0.11-0.59) Eosinophils # (Auto) 0.34 K/uL (0-0.5) Basophils # (Auto) 0.05 K/uL (0-0.2) RDW Standard Deviation 60.3 fL (36.4-46.3) RDW Coefficient of Variation 16.5 % (11.5-14.5) Immature Granulocyte % (Auto) 4.1 % Immature Granulocyte # (Auto) 0.33 K/uL (0.00-0.02) Prothrombin Time 11.4 SECONDS (9.0-12.0) Prothromb Time International Ratio 1.1 (0.9-1.1) Activated Partial Thromboplast Time 27.1 SECONDS (21.0-31.0) Partial Thromboplastin Ratio 1.0 Anion Gap 7.0 mmol/L (3-11) Est Creatinine Clear Calc Drug Dose 6.7 ml/min Estimated GFR () 6.9 Estimated GFR (Non- 6.0 BUN/Creatinine Ratio 14.9 (10-20) Calcium Level 7.7 mg/dl (8.5-10.1) Total Bilirubin 0.2 mg/dl (0.2-1) Direct Bilirubin < 0.1 mg/dl (0-0.2) Aspartate Amino Transf (AST/SGOT) 10 U/L (15-37) Alanine Aminotransferase (ALT/SGPT) 16 U/L (12-78) Alkaline Phosphatase 69 U/L (45-117) Troponin I < 0.015 ng/ml (0-0.045) Total Protein 5.7 gm/dl (6.4-8.2) Albumin 2.6 gm/dl (3.4-5.0) Urine Color DK YELLOW Urine Appearance TURBID (CLEAR) Urine pH 6.0 (4.5-7.5) Urine Specific [place] 1.016 (1.000-1.030) Urine Protein 3+ (NEG) Urine Glucose (UA) NEG (NEG) Urine Ketones NEG (NEG) Urine Occult Blood 3+ (NEG) Urine Nitrite NEG (NEG) Urine Bilirubin NEG (NEG) Urine Urobilinogen NEG (NEG) Urine Leukocyte Esterase LARGE (NEG) Urine WBC (Auto) >30 /hpf (0-5) Urine RBC (Auto) >30 /hpf (0-4) Urine Hyaline Casts (Auto) 5-10 /lpf (0-5) Urine Epithelial Cells (Auto) >30 /lpf (0-5) Urine Bacteria (Auto) NEG (NEG) Urine Renal Epithelial Cells 5-10 /lpf (0-5) Urine Pathogenic Casts /lpf (0) Urine Yeast (Auto) PRESENT (NONE PRSENT) Laboratory results per my review. Medications Administered Medications (Trade) Dose Ordered Sig/Helder Route Start Time Stop Time Status Last Admin Dose Admin Sodium Chloride (Nss 1000ml) 1,000 ml @ 999 mls/hr Q1H1M STAT IV 10/12/16 16:03 10/12/16 17:03 DC 10/12/16 16:03 999 MLS/HR Piperacillin Sod/ Tazobactam Sod (Zosyn Iv) 3.375 gm NOW STAT IV 10/12/16 17:08 10/12/16 17:12 DC 10/12/16 17:27 3.375 GM Diphenhydramine HCl 25 mg 25 mg NOW STAT IV 10/12/16 17:14 10/12/16 17:15 DC 10/12/16 17:27 25 MG Sodium Chloride (Nss 1000ml) 1,000 ml @ 50 mls/hr Q20H IV 10/12/16 19:03 11/11/16 19:02 10/12/16 21:59 50 MLS/HR ECG Indication: other (hypotensive) Rate (beats per minute): 80 Rhythm: sinus rhythm Findings: Q waves (Septal), left axis deviation Comparison ECG Date: August 19, 2016 Change: no significant change (septal Q wave and flipped T wave and left axis deviation are all old) ED Course ED COURSE: Vital signs were reviewed and showed normal The patients medical record was reviewed, the patient has bilateral stents in place and wears 2 L oxygen. The above diagnostic studies were performed and reviewed. ED treatments and interventions as stated above. 1555: The patient was evaluated in room A4B. A complete history and physical examination was performed. 1603: Ordered Sodium Chloride 1,000 ml @ 999 mls/hr IV. 1708: Ordered Zosyn Iv 3,375 gm IV. 1710: Old urine cultures were review showing E.coli and klebsiella and was hernandez sensitive. 1713: I reevaluated the patient and she was experiencing hives. I discussed my findings with the patient and her and the recommendation for the patient to be admitted for further evaluation and treatment. 1714: Ordered Benadryl Inj 25 mg IV. 1716: I discussed the case with Dr. Stas LOPEZ Hospitalist. She agreed to evaluate the patient for further management and care. Medical Decision Differential diagnosis includes etiologies such as sepsis, UTI, pneumonia, metabolic, electrolyte abnormalities, cardiac sources, intracerebral event, toxicologic, neurologic, as well as others were entertained. Patient is an 81-year-old female who presents the ER for hypertension at home. Patient has a history of bilateral ureteral stents with multiple UTIs which have been [id number]. UA once again suggest a UTI. She has been receiving Zosyn. She was given a dose of Zosyn today as her previous UTIs will be sensitive to this. No significant leukocytosis. Mild anemia. Creatinine was significantly elevated at 6, her baseline at 3. Potassium slightly elevated at 5.4. Bilirubin all with LFTs was unremarkable. Troponin was negative. was updated at bedside. Renal US was performed. Stents are in place on KUB. Mild to moderate Mills has improved renal ultrasound. Favor this likely secondary to worsening UTI and dehydration causing her BONNIE. Patient was given a bolus of normal saline as well and was d/w internal medicine. Consults Time Called: [phone] Consulting Physician: Dr. Ghanshyam LOPEZ Hospitalist Returned Call: [phone] I discussed the case with Dr. Stas LOPEZ Hospitalist. She agreed to evaluate the patient for further management and care. Impression Primary Impression: BONNIE (acute kidney injury) Additional Impressions: UTI (urinary tract infection) Hyperkalemia Anemia Scribe Attestation The scribe's documentation has been prepared under my direction and personally reviewed by me in its entirety. I confirm that the note above accurately reflects all work, treatment, procedures, and medical decision making performed by me. Departure Information Dispostion Being Evaluated By Hospitalist Referrals Jan Cervantes M.D. (PCP) Patient Instructions My [facility] Problem Qualifiers Additional Impressions: UTI (urinary tract infection) Urinary tract infection type: acute cystitis Hematuria presence: with hematuria Qualified Codes: N30.01 - Acute cystitis with hematuria Anemia Other causes of anemia: other cause, not classified
--- NOTE | 2016-10-12 18:54 | DIAGNOSTIC IMAGING REPORT ---
KUB CLINICAL HISTORY: Ureteral stents. COMPARISON STUDY: KUB September 20, 2016. FINDINGS: There are cholecystectomy clips. Bilateral ureteral stents are unchanged in position since exam of September 20, 2016. The stents appear intact. No urinary calculi are identified. Bowel gas pattern is normal. IMPRESSION: 1. Appropriately positioned bilateral ureteral stents. 2. No urinary calculi identified. Electronically signed by: Mckinley Winkler M.D. 10/12/2016 6:52 PM Dictated Date/Time: 10/12/2016 6:51 PM
--- NOTE | 2016-10-12 19:00 | DIAGNOSTIC IMAGING REPORT ---
RENAL ULTRASOUND CLINICAL HISTORY: Acute kidney injury. Stents in place. COMPARISON STUDY: Renal ultrasound September 20, [address] of the abdomen and pelvis September 16, 2015. TECHNIQUE: Sonography of the kidneys and the urinary bladder was performed. FINDINGS: The exam is compromised due to suboptimal penetration which particularly affects visualization of the left kidney. Renal atrophy with cortical thinning is again noted. Mild to moderate right hydronephrosis has improved since exam of September 20, 2016. Left hydronephrosis is difficult to assess on this exam but likely improved. The distal aspect of the stents are noted within the bladder. IMPRESSION: 1. Technically difficult study due to suboptimal penetration. Mild to moderate hydronephrosis, likely improved since exam of September 20, 2016. 2. Ureteral stents in place. 3. Marked renal cortical thinning which is unchanged. Electronically signed by: Mckinley Winkler M.D. 10/12/2016 6:59 PM Dictated Date/Time: 10/12/2016 6:28 PM
[2016-10-12] MEDS ORDERED: SODIUM CHLORIDE 0.9% 1000ML 1,000 ML IV SCH (19:03)
[2016-10-12] MEDS ORDERED: MAGNESIUM HYDROXIDE SUSP 30 ML UDC PO PRN (19:15)
[2016-10-12] MEDS ORDERED: ACETAMINOPHEN 325 MG TAB PO PRN (19:15)
[2016-10-12] MEDS ORDERED: ALUMINUM/MAGNESIUM/SIMETH (MAALOX MAX) 30 ML UDC PO PRN (19:15)
[2016-10-12] MEDS ORDERED: POLYETHYLENE (MIRALAX) 17 GM PACK PO PRN (19:15)
--- NOTE | 2016-10-12 19:49 | History and Physical ---
History & Physical Date & Time of Service: Oct 12, 2016 at 19:23 Chief Complaint: Weakness/ Hypotensive Per Primary Care Physician: José Luis Griffin MD History of Present Illness Source: patient, spouse ( at bedside), clinic records, hospital records This is an 81 y/o female with a history of recurrent UTI, CKD stage IV, chronic systolic CHF, HTN, HLD, gout, ischemic cardiomyopathy, ICD placement, anxiety and depression who presented to the ED on 10/12 with hypotension x 2 days. The patient is accompanied by her , who checks her vitals every day. He noticed that she became hypotensive 2 days ago. He held her carvedilol, although the hypotension persisted. The patient complains of weakness and fatigue. She denies lightheadedness, chest pain, and shortness of breath. The patient wears 2L NC oxygen at all times. The patient's notes that she has not been drinking much recently. The patient does have a history of recurrent UTI. The patient is incontinent of urine and bowel. The denies any malodorous or cloudy urine. The patient denies any dysuria or hematuria. The patient denies fevers, chills, sweats, chest pain, palpitations , claudication, cough, wheezing, shortness of breath, vomiting, abdominal pain, dysuria, hematuria, urinary retention, paralysis, motor weakness, numbness and tingling. Past Medical/Surgical History Medical Problems: (1) Acute kidney injury Status: Resolved (2) Acute renal failure superimposed on stage 4 chronic kidney disease Status: Resolved (3) Acute urinary tract infection Status: Resolved (4) Benign hypertension Status: Chronic (5) Cardiac catheterization Status: Resolved (6) CHF (congestive heart failure) Status: Resolved (7) Cholecystectomy Status: Resolved (8) Chronic kidney disease Status: Chronic (9) Coronary artery disease Status: Chronic (10) Diabetes Status: Chronic (11) Ischemic cardiomyopathy Status: Resolved (12) Myocardial infarction Status: Chronic (13) Pneumonia Status: Resolved (14) 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 Status: Resolved (15) Sepsis Status: Resolved (16) Sepsis due to Klebsiella Status: Resolved (17) sepsis recurrent UTI BONNIE on ckd Status: Resolved (18) Systolic CHF Status: Resolved (19) UTI (urinary tract infection) Status: Resolved Surgical Problems: (1) History of cholecystectomy Status: Resolved Family History Diabetes mellitus Other cardiovascular diseases Stroke Social History Smoking Status: Never Smoker Smokeless Tobacco Use: No Alcohol Use: none Drug Use: none Marital Status: Housing status: lives with significant other (with home health services) Occupational Status: retired Immunizations History of Influenza Vaccine: Yes Influenza Vaccine Date: Mar 17, 2010 History of Tetanus Vaccine?: No History of Pneumococcal: No Pneumococcal Date: Jun 06, 2011 History of Hepatitis B Vaccine: No Multi-Drug Resistant Organisms History of MDRO: Yes Type of MDRO: other Allergies Coded Allergies: Sulfa Antibiotics (Verified Allergy, Intermediate, BODY SWELLING,NAUSEA AND VOMITNG, 10/12/16) Penicillins (Verified Allergy, Unknown, Tolerates Primaxin, 10/12/16) PER PCP RECORDS Home Medications Scheduled Aspirin (Aspirin), 81 MG PO QPM Atorvastatin (Lipitor), 80 MG PO QPM Carvedilol (Carvedilol), 25 MG PO BID Cholecalciferol (Vitamin D3), 1 TAB PO DAILY Clopidogrel Bisulfate (Clopidogrel), 75 MG PO QPM Febuxostat (Uloric), 40 MG PO NOON Furosemide (Lasix), 20 MG PO QAM Loteprednol Etabonate (Lotemax), 1 DROP OPB QAM Multiple Vitamins W/ Minerals (Centrum Silver Ultra Wome), 1 TAB PO QAM Nystatin (Nystop), 1 DOSE TOP BID Pantoprazole (Pantoprazole Sodium), 40 MG PO QAM Probiotic Product (Probiotic), 1 TAB PO QPM Sodium Bicarbonate (Sodium Bicarbonate), 1 TAB PO QAM Vancomycin Hcl (Vancomycin), 125 MG PO QAM Scheduled PRN Lorazepam (Ativan), 0.5 MG PO Q6H PRN for Anxiety Ondasetron Odt (Zofran Odt), 4 MG PO Q6H PRN for Nausea Review of Systems Constitutional: + fatigue, + weakness, No chills, No fever, No sweats Eyes: No diplopia, No eye pain, No worsening of vision ENT: No hearing loss, No sore throat, No trouble swallowing Respiratory: No cough, No shortness of breath, No wheezing Cardiovascular: No chest pain, No claudication, No palpitations Abdomen: + nausea (chronic), No pain, No vomiting Musculoskeletal: No calf pain, No joint pain, No muscle pain Genitourinary - Female: + urinary incontinence, No dysuria, No hematuria, No urinary retention Neurologic: No numbness/tingling, No paralysis, No weakness Integumentary: No color change, No itch, No rash Physical Exam Vital Signs Date Time Temp Pulse Resp B/P Pulse Ox O2 Delivery O2 Flow Rate FiO2 10/12/16 18:36 58 18 108/52 100 10/12/16 18:09 74 18 96/52 98 Room Air 10/12/16 16:30 73 18 96/52 99 Room Air 10/12/16 15:31 81 10/12/16 15:29 37.0 82 24 109/58 98 Nasal Cannula 2.0 10/12/16 15:29 98 Nasal Cannula 2.0 General Appearance: WD/WN, no apparent distress Head: normocephalic, atraumatic Eyes: normal inspection, PERRL, EOMI, + pertinent finding (severe cataract, right eye) ENT: normal ENT inspection, hearing grossly normal, pharynx normal, + pertinent finding (dry oral mucosa) Neck: supple, no JVD, trachea midline Respiratory/Chest: normal breath sounds, no respiratory distress, + crackles ( left base) Cardiovascular: regular rate, rhythm, no gallop, no murmur Abdomen/GI: normal bowel sounds, non tender, soft Extremities/Musculoskelatal: normal inspection, no calf tenderness, no pedal edema Neurologic/Psych: alert, oriented x 3, + pertinent finding (flat affect) Skin: normal color, warm/dry, no rash Diagnostics Laboratory Results Results Past 24 Hours Test 10/12/16 16:10 10/12/16 16:21 Range/Units White Blood Count 8.13 4.8-10.8 K/uL Red Blood Count 3.24 4.2-5.4 M/uL Hemoglobin 10.0 12.0-16.0 g/dL Hematocrit 32.1 37-47 % Mean Corpuscular Volume 99.1 80-100 fL Mean Corpuscular Hemoglobin 30.9 25-34 pg Mean Corpuscular Hemoglobin Concent 31.2 32-36 g/dl Platelet Count 159 130-400 K/uL Mean Platelet Volume 9.0 7.4-10.4 fL Neutrophils (%) (Auto) 52.0 % Lymphocytes (%) (Auto) 34.2 % Monocytes (%) (Auto) 4.9 % Eosinophils (%) (Auto) 4.2 % Basophils (%) (Auto) 0.6 % Neutrophils # (Auto) 4.23 1.4-6.5 K/uL Lymphocytes # (Auto) 2.78 1.2-3.4 K/uL Monocytes # (Auto) 0.40 0.11-0.59 K/uL Eosinophils # (Auto) 0.34 0-0.5 K/uL Basophils # (Auto) 0.05 0-0.2 K/uL RDW Standard Deviation 60.3 36.4-46.3 fL RDW Coefficient of Variation 16.5 11.5-14.5 % Immature Granulocyte % (Auto) 4.1 % Immature Granulocyte # (Auto) 0.33 0.00-0.02 K/uL Sodium Level 141 136-145 mmol/L Potassium Level 5.4 3.5-5.1 mmol/L Chloride Level 110 98-107 mmol/L Carbon Dioxide Level 24 21-32 mmol/L Anion Gap 7.0 3-11 mmol/L Blood Urea Nitrogen 89 7-18 mg/dl Creatinine 6.00 0.60-1.20 mg/dl Est Creatinine Clear Calc Drug Dose 6.7 ml/min Estimated GFR () 6.9 Estimated GFR (Non- 6.0 BUN/Creatinine Ratio 14.9 10-20 Random Glucose 102 70-99 mg/dl Calcium Level 7.7 8.5-10.1 mg/dl Total Bilirubin 0.2 0.2-1 mg/dl Direct Bilirubin < 0.1 0-0.2 mg/dl Aspartate Amino Transf (AST/SGOT) 10 15-37 U/L Alanine Aminotransferase (ALT/SGPT) 16 12-78 U/L Alkaline Phosphatase 69 45-117 U/L Troponin I < 0.015 0-0.045 ng/ml Total Protein 5.7 6.4-8.2 gm/dl Albumin 2.6 3.4-5.0 gm/dl Urine Color DK YELLOW Urine Appearance TURBID CLEAR Urine pH 6.0 4.5-7.5 Urine Specific River 1.016 1.000-1.030 Urine Protein 3+ NEG Urine Glucose (UA) NEG NEG Urine Ketones NEG NEG Urine Occult Blood 3+ NEG Urine Nitrite NEG NEG Urine Bilirubin NEG NEG Urine Urobilinogen NEG NEG Urine Leukocyte Esterase LARGE NEG Urine WBC (Auto) >30 0-5 /hpf Urine RBC (Auto) >30 0-4 /hpf Urine Hyaline Casts (Auto) 5-10 0-5 /lpf Urine Epithelial Cells (Auto) >30 0-5 /lpf Urine Bacteria (Auto) NEG NEG Urine Renal Epithelial Cells 5-10 0-5 /lpf Urine Pathogenic Casts 0 /lpf Urine Yeast (Auto) PRESENT NONE PRSENT Diagnostic Radiology Reviewed the following studies and agree with interpretation as follows: Patient Name: ELIEL MIR Unit Number: [id number] Dictated: 10/12/161656 Transcribed: 10/12/161656 JA Printed Date/Time: [~ rep prt dt]/[~ rep prt tm] [~ rep ct labl] - [~ rep ct ivnm] [facility] [place] [address] Dictated: 10/12/161656 Transcribed: 10/12/161656 Printed Date/Time: [~ rep prt dt]/[~ rep prt tm] [~ rep ct labl] - [~ rep ct ivnm] Patient: ELIEL MIR Address1: [address] [place] [address] [address] Rec: [id number] Address2: Acct ID: [id number] [facility] Zip: [place] [address] Date: 1935 Sex: F Room/Bed: Ref Phy: Hardeep Reeves M.D. SC: DENICE Att Phy: Report #: [id number] Kary Phy: José Luis Griffin MD Test: CXR1P Admit Phy: Funeral Director/Embalmer/Owner: IGOR Interpreting Phy: Mckinley Winkler MD Diagnosis: WEAKNESS/ HYPOTENSIVE PER Ordering Phy: Eleno Bustillos DO Service Date: 10/12/16 Admit Date: 10/12/16 MNE: [id number] CONF: DICTATED BY: Mckinley Winkler MD]] CC: José Luis Griffin MD, Ryan M., Hardeep Watts M.D. Endcc: [~ rep ct add3]] CHEST ONE VIEW PORTABLE CLINICAL HISTORY: Weakness. COMPARISON STUDY: Chest radiograph September 21, 2016. FINDINGS: A right PICC remains in place. There is a left subclavian pacer/AICD. Cardiomegaly is unchanged. There is a trace left pleural effusion. There is no pneumothorax. Mild bibasilar opacities favor atelectasis. There is pulmonary vascular congestion. IMPRESSION: 1. Pulmonary vascular congestion with a trace left pleural effusion. 2. Stable cardiomegaly. 3. Bibasilar opacities. Atelectasis is favored although consolidation could appear similar. Electronically signed by: Mckinley Winkler M.D. 10/12/2016 4:58 PM Dictated Date/Time: 10/12/2016 4:57 PM The status of this report is Signed. Draft = Not yet reviewed or approved by Radiologist. Signed = Reviewed and approved by Radiologist. <AttendingPhy></AttendingPhy> <FamilyPhy>Hardeep Reeves M.D.</FamilyPhy > <PrimaryPhy>José Luis Griffin MD</PrimaryPhy> <UnitNumber>[id number]</UnitNumber> < VisitNumber>[id number]</VisitNumber> <PatientName>ELIEL MIR</ PatientName> <DateOfBirth>1935</DateOfBirth> <Location>C.JOEL</Location> < ServiceDate>10/12/16</ServiceDate> <MNE>ESINDI</MNE> <OrderingPhy>Eleno Bustillos DO</OrderingPhy> <OrderingPhyMNE>f rep ord dr ellis</OrderingPhyMNE> < DictatingPhyMNE>f rep dict dr ellis</DictatingPhyMNE> <CCListMNE>f rep ct mne</ CCListMNE> <AdmittingPhyMNE>f pt admit dr ellis</AdmittingPhyMNE> <AttendingPhyMNE >f pt attend dr ellis</AttendingPhyMNE> <ConsultingPhyMNE>f pt consult dr ellis</ConsultingPhyMNE> <FamilyPhyMNE>f pt fam dr ellis</FamilyPhyMNE> <OtherPhyMNE>f pt other dr ellis</OtherPhyMNE> < PrimaryPhyMNE>f pt prim care dr ellis</PrimaryPhyMNE> <ReferringPhyMNE>f pt referring dr ellis</ReferringPhyMNE> Patient Name: ELIEL MIR Unit Number: [id number] Dictated: 10/12/161827 Transcribed: 10/12/161830 JA Printed Date/Time: [~ rep prt dt]/[~ rep prt tm] [~ rep ct labl] - [~ rep ct ivnm] [facility] [place] [address] Dictated: 10/12/161827 Transcribed: 10/12/161830 JA Printed Date/Time: [~ rep prt dt]/[~ rep prt tm] [~ rep ct labl] - [~ rep ct ivnm] Patient: ELIEL MIR Address1: [address] [facility] [address] [facility] Rec: [id number] Address2: Acct ID: [id number] [facility] Zip: [place] [address] Date: 1935 Sex: F Room/Bed: Ref Phy: Hardeep Reeves M.D. SC: DENICE Att Phy: Report #: [id number] Kary Phy: José Luis Griffin MD Test: EMORY Admit Phy: Funeral Director/Embalmer/Owner: JESUS Interpreting Phy: Mckinley Winkler MD Diagnosis: WEAKNESS/ HYPOTENSIVE PER Ordering Phy: Eleno Bustillos DO Service Date: 10/12/16 Admit Date: 10/12/16 MNE: [id number] CONF: DICTATED BY: Mckinley Winkler MD]] CC: José Luis Griffin MD, Ryan M., DO Yingling, Christopher T. M.D. Endcc: [~ rep ct add3]] RENAL ULTRASOUND CLINICAL HISTORY: Acute kidney injury. Stents in place. COMPARISON STUDY: Renal ultrasound September 20, [address] of the abdomen and pelvis September 16, 2015. TECHNIQUE: Sonography of the kidneys and the urinary bladder was performed. FINDINGS: The exam is compromised due to suboptimal penetration which particularly affects visualization of the left kidney. Renal atrophy with cortical thinning is again noted. Mild to moderate right hydronephrosis has improved since exam of September 20, 2016. Left hydronephrosis is difficult to assess on this exam but likely improved. The distal aspect of the stents are noted within the bladder. IMPRESSION: 1. Technically difficult study due to suboptimal penetration. Mild to moderate hydronephrosis, likely improved since exam of September 20, 2016. 2. Ureteral stents in place. 3. Marked renal cortical thinning which is unchanged. Electronically signed by: Mckinley Winkler M.D. 10/12/2016 6:59 PM Dictated Date/Time: 10/12/2016 6:28 PM The status of this report is Signed. Draft = Not yet reviewed or approved by Radiologist. Signed = Reviewed and approved by Radiologist. <AttendingPhy></AttendingPhy> <FamilyPhy>Hardeep Reeves M.D.</FamilyPhy > <PrimaryPhy>José Luis Griffin MD</PrimaryPhy> <UnitNumber>[id number]</UnitNumber> < VisitNumber>[id number]</VisitNumber> <PatientName>ELIEL MIR</ PatientName> <DateOfBirth>1935</DateOfBirth> <Location>C.JOEL</Location> < ServiceDate>10/12/16</ServiceDate> <MNE>ESINDI</MNE> <OrderingPhy>Eleno Bustillos DO</OrderingPhy> <OrderingPhyMNE>f rep ord dr ellis</OrderingPhyMNE> < DictatingPhyMNE>f rep dict dr ellis</DictatingPhyMNE> <CCListMNE>f rep ct caleb</ CCListMNE> <AdmittingPhyMNE>f pt admit dr ellis</AdmittingPhyMNE> <AttendingPhyMNE >f pt attend dr ellis</AttendingPhyMNE> <ConsultingPhyMNE>f pt consult dr ellis</ConsultingPhyMNE> <FamilyPhyMNE>f pt fam dr ellis</FamilyPhyMNE> <OtherPhyMNE>f pt other dr ellis</OtherPhyMNE> < PrimaryPhyMNE>f pt prim care dr ellis</PrimaryPhyMNE> <ReferringPhyMNE>f pt referring dr ellis</ReferringPhyMNE> Patient Name: ELIEL MIR Unit Number: [id number] Dictated: 10/12/161850 Transcribed: 10/12/161850 JA Printed Date/Time: [~ rep prt dt]/[~ rep prt tm] [~ rep ct labl] - [~ rep ct ivnm] [facility] [place] [address] Dictated: 10/12/161850 Transcribed: 10/12/161850 JA Printed Date/Time: [~ rep prt dt]/[~ rep prt tm] [~ rep ct labl] - [~ rep ct ivnm] Patient: ELIEL MIR Address1: [address] [facility] [address] [facility] Rec: [id number] Address2: Acct ID: [id number] [facility] Zip: [place] [address] Date: 1935 Sex: F Room/Bed: Ref Phy: Hardeep Reeves M.D. SC: DENICE Att Phy: Report #: [id number] Kary Phy: José Luis Griffin MD Test: KUB Admit Phy: Funeral Director/Embalmer/Owner: IGOR Interpreting Phy: Mckinley Winkler MD Diagnosis: WEAKNESS/ HYPOTENSIVE PER Ordering Phy: Eleno Bustillos DO Service Date: 10/12/16 Admit Date: 10/12/16 MNE: PWRSCRIBE CONF: DICTATED BY: Mckinley Winkler MD]] CC: José Luis Griffin MD, Ryan M., Hardeep Watts M.D. Endcc: [~ rep ct add3]] KUB CLINICAL HISTORY: Ureteral stents. COMPARISON STUDY: KUB September 20, 2016. FINDINGS: There are cholecystectomy clips. Bilateral ureteral stents are unchanged in position since exam of September 20, 2016. The stents appear intact. No urinary calculi are identified. Bowel gas pattern is normal. IMPRESSION: 1. Appropriately positioned bilateral ureteral stents. 2. No urinary calculi identified. Electronically signed by: Mckinley Winkler M.D. 10/12/2016 6:52 PM Dictated Date/Time: 10/12/2016 6:51 PM The status of this report is Signed. Draft = Not yet reviewed or approved by Radiologist. Signed = Reviewed and approved by Radiologist. <AttendingPhy></AttendingPhy> <FamilyPhy>Hardeep Reeves M.D.</FamilyPhy > <PrimaryPhy>José Luis Griffin MD</PrimaryPhy> <UnitNumber>[id number]</UnitNumber> < VisitNumber>[id number]</VisitNumber> <PatientName>ELIEL MIR</ PatientName> <DateOfBirth>1935</DateOfBirth> <Location>C.JOEL</Location> < ServiceDate>10/12/16</ServiceDate> <MNE>ESINDI</MNE> <OrderingPhy>Eleno Bustillos DO</OrderingPhy> <OrderingPhyMNE>f rep ord dr ellis</OrderingPhyMNE> < DictatingPhyMNE>f rep dict dr ellis</DictatingPhyMNE> <CCListMNE>f rep ct mne</ CCListMNE> <AdmittingPhyMNE>f pt admit dr ellis</AdmittingPhyMNE> <AttendingPhyMNE >f pt attend dr ellis</AttendingPhyMNE> <ConsultingPhyMNE>f pt consult dr ellis</ConsultingPhyMNE> <FamilyPhyMNE>f pt fam dr ellis</FamilyPhyMNE> <OtherPhyMNE>f pt other dr ellis</OtherPhyMNE> < PrimaryPhyMNE>f pt prim care dr ellis</PrimaryPhyMNE> <ReferringPhyMNE>f pt referring dr ellis</ReferringPhyMNE> EKG Reviewed EKG and agree with interpretation as follows: 80 bpm, normal sinus rhythm Impression Assessment and Plan 81 y/o female with a history of recurrent UTI, CKD stage IV, chronic systolic CHF, HTN, HLD, gout, ischemic cardiomyopathy, ICD placement, anxiety and depression who presented to the ED on 10/12 with hypotension x 2 days. BP as low as 70s/30s per 's recorded vital signs. Remained hypotensive despite discontinuing carvedilol at home. BP 109/58 on arrival. Afebrile. Other vital signs stable. Creatinine elevated above baseline at 6.0. UA positive for yeast. Hypotension--unknown etiology -Admit to telemetry for cardiac monitoring -Hold carvedilol, Lasix, and Ativan for now -Gentle IV hydration with NSS at 50 cc/hr due to h/o CHF UTI POA secondary to yeast--history of recurrent UTIs, follows with Dr. Griffin -Urine culture pending -Fluconazole 200 mg IV x 1, then 100 mg IV qd due to renal dosing BONNIE on CKD stage IV--baseline creatinine 3.[address] Corral's outpt records -Creatinine 6.0 on arrival -IVF as above -Continue sodium bicarbonate 650 mg PO qd Chronic systolic CHF -CXR as above -Hold carvedilol and Lasix as above -Watch daily weights, monitor for exacerbation HLD -Continue atorvastatin 80 mg PO qd Recurrent C. diff--chronic vanc -Continue vancomycin 125 mg PO qd DVT prophylaxis -Heparin 5000 units SC q12h -CODI kearney and Corina Code Status -Level I, FULL RESUSCITATION STATUS This chart was completed in part utilizing [employer] Speech Voice Recognition software. Attempts were made to minimize the grammatical errors, random word insertions, pronoun errors and incomplete sentences. Any formal questions or concerns about the content, text or information contained within the body of this dictation should be directly addressed to the provider for clarification. Level of Care Telemetry Resuscitation Status FULL RESUSCITATION VTE Prophylaxis VTE Risk Assessment Done? Y/N: Yes Risk Level: Moderate Given or contraindicated: Unfractionated heparin SQ, T.E.D. Stockings, SCD's Reviewed: Pt Seen/Exam by Me History Pt states she is tired, but otherwise no new concerns from her. She has not eaten much lately, but is hungry now. She states she is nauseated every AM and this is relieved by zofran. No pain, specifically urinary pain. Denies SOB, chest pain. states she wears briefs that he changes when she is wet, but that he cannot say that this has been more frequent. checks BP QD and had been working with cardiology to decrease and then stop carvedilol due to ongoing hypoTN. Agree with HPI/ROS as noted. General Appearance: WD/WN, no apparent distress Respiratory: normal breath sounds, no respiratory distress Cardiovascular: normal peripheral pulses, regular rate, rhythm Gastrointestinal: non tender, soft Extremities: non-tender, no pedal edema Neurologic/Psychiatric: alert, oriented x 3 Skin Characteristics: normal color, warm/dry Assessment/Plan Agree with plan as outlined above HypoTN of unknown cause in pt with hx of recurrent UTI UA noted + for leuk est and yeast, neg for nitrites. Will tx with abx and antifungal given hx and await cx results given hypoTN Renal US and KUB neg for stones and stent issues ARF in the setting of CKD with decreased PO intake and infection Likely dehydration with above renal imaging noted Monitor on gentle IVF given CHF hx
[2016-10-12 21:19] LABS: INR 1.1 (0.9-1.1); PROTHROMBIN TIME (PATIENT) 11.4 SECONDS (9.0-12.0)
[2016-10-12] MEDS ORDERED: FLUCONAZOLE / NSS 200 MG in PREMIXED NSS 100 ML IV ONE (21:30)
[2016-10-12 22:01] VITALS: BP 103/44; PULSE 76; TEMP 36.8; O2SAT 99; Ht 162.6 cm; Wt 67.1 kg
[2016-10-12] MEDS: HEPARIN SOD 5000 UNIT/0.5 ML CARP SQ SCH (23:00)
[2016-10-12 23:52] VITALS: BP 130/54; PULSE 67; TEMP 36.4; O2SAT 100
[2016-10-13 03:48] VITALS: BP 136/68; PULSE 71; TEMP 36.4; O2SAT 100
[2016-10-13] MEDS: NYSTATIN POWDER 15GM BTL EXT SCH ×3 (04:34→21:00)
[2016-10-13] MEDS: LACTOBACILLUS ACIDOPHILUS (FLORANEX) TAB PO SCH ×2 (04:34→21:52)
[2016-10-13] MEDS: ASPIRIN 81 MG ECTAB PO SCH ×2 (04:34→21:52)
[2016-10-13] MEDS: CLOPIDOGREL BISULFATE 75 MG TAB PO SCH ×2 (04:35→21:52)
[2016-10-13 07:05] LABS: HEMATOCRIT 32.3 % (37-47); MEAN CELL VOLUME 99.1 fL (80-100); MEAN CORPUSCULAR HEMOGLOBIN 30.1 pg (25-34); MEAN CORPUSCULAR HGB CONC 30.3 g/dl (32-36); MEAN PLATELET VOLUME 9.2 fL (7.4-10.4); PLATELET COUNT 141 K/uL (130-400); RED BLOOD COUNT 3.26 M/uL (4.2-5.4); WHITE BLOOD COUNT 6.97 K/uL (4.8-10.8)
[2016-10-13 07:56] LABS: BUN/CREATININE RATIO 15.5 (10-20); CALCIUM 7.6 mg/dl (8.5-10.1); CREATININE 5.7 mg/dl (0.60-1.20)
[2016-10-13 07:57] VITALS: BP 144/64; TEMP 36.4; O2SAT 91
[2016-10-13] MEDS: LOTEPREDNOL ETABONATE 0.5% OPB SCH (09:04)
[2016-10-13] MEDS: RASPBERRY SYRUP 5 ML UDP PO SCH (09:05)
[2016-10-13] MEDS: VANCOMYCIN HCL 125 MG/2.5ML SOLN PO SCH (09:06)
[2016-10-13] MEDS: PANTOprazole SOD 40 MG TAB PO SCH (09:07)
[2016-10-13] MEDS: SODIUM BICARBONATE 650 MG TAB PO SCH (09:07)
[2016-10-13] MEDS: HEPARIN SOD 5000 UNIT/0.5 ML CARP SQ SCH ×2 (09:15→21:55)
[2016-10-13 12:11] VITALS: BP 122/51; PULSE 78; TEMP 36; O2SAT 91
--- NOTE | 2016-10-13 12:22 | Progress Note ---
Subjective Date of Service: Oct 13, 2016. Subjective Pt evaluation today including: conversation w/ patient, conversation w/ family ( at bedside), physical exam, lab review, review of studies, review of inpatient medication list Patient is feeling slightly better than yesterday. No chest pain, no sob. No abd pain. Has urinary incontinence. Of note, patient is allergic to pcn although she does not remember when or what type of reaction she had. SHe received zosyn last night after which she had rashes in her upper extremities which resolved with diphenhydramine. She was also given vanco so unclear if this was after the vanco with esther syndrome or an actual reaction to zosyn. Problem List Medical Problems: (1) Acute on chronic kidney failure Status: Acute (2) Acute renal failure Status: Acute (3) BONNIE (acute kidney injury) Status: Acute (4) Altered mental status Status: Acute (5) Altered mental status Status: Acute (6) ARF (acute renal failure) Status: Acute (7) CRD (chronic renal disease) Status: Acute (8) Dehydration Status: Acute (9) Dehydration Status: Acute (10) Fever Status: Acute (11) Hyperkalemia Status: Acute (12) Hyperkalemia Status: Acute (13) Hyperkalemia Status: Acute (14) Hypomagnesemia Status: Acute (15) PICC (peripherally inserted central catheter) in place Status: Acute (16) Pneumonia Status: Acute (17) Renal failure Status: Acute (18) Renal insufficiency Status: Acute (19) Renal insufficiency Status: Acute (20) Sepsis Status: Acute (21) Sepsis Status: Acute (22) Uremia Status: Acute (23) UTI (urinary tract infection) Status: Acute (24) UTI (urinary tract infection) Status: Acute (25) UTI (urinary tract infection) Status: Acute (26) Weakness Status: Acute (27) Weakness Status: Acute (28) Weakness Status: Acute (29) Weakness Status: Acute (30) Weakness Status: Acute Review of Systems All Other Systems: Reviewed and Negative Medications Acetaminophen (Tylenol Tab) 650 mg Q4H PRN PO; Start 10/12/16 at 19:15; Stop 11/11/16 at 19:14 Al Hydrox/Mg Hydrox/Simethicone (Maalox Max Susp) 15 ml Q4H PRN PO; Start 10/12 at 19:15; Stop 11/11/16 at 19:14 Aspirin (Ecotrin Tab) 81 mg QPM PO Last administered on 10/13/16 04:34; Admin Dose 81 MG; Start 10/12/16 at 21:00; Stop 11/11/16 at 20:59 Atorvastatin Calcium (Lipitor Tab) 80 mg QPM PO; Start 10/12/16 at 21:00; Stop 11/11/16 at 20:59; Status Future hold Clopidogrel Bisulfate (plAVix TAB) 75 mg QPM PO Last administered on 10/13/16 04:35; Admin Dose 75 MG; Start 10/12/16 at 21:00; Stop 11/11/16 at 20:59 Febuxostat (Uloric) 40 mg DAILY@1200 PO Last administered on 10/13/16 13:10; Admin Dose 40 MG; Start 10/13/16 at 12:00; Stop 11/12/16 at 11:59 Fluconazole/ Sodium Chloride/ Prmx (Diflucan IV/ Premixed Nss) 50 ml @ 100 mls/ hr DAILY@2100 IV; Start 10/13/16 at 21:00; Stop 10/17/16 at 20:59 Heparin Sodium (Porcine) (Heparin Sq 5000 Unit/0.5ml) 5,000 unit Q12 SQ Last administered on 10/13/16 09:15; Admin Dose 5,000 UNIT; Start 10/12/16 at 21:00 ; Stop 11/11/16 at 20:59 Lactobacillus Acidophilus (Floranex Tab) 1 tab QPM PO Last administered on 04:34; Admin Dose 1 TAB; Start 10/12/16 at 21:00; Stop 11/11/16 at 20:59 Loteprednol Etabonate 1 drops 1 drops QAM OPB Last administered on 10/13/16 09: 04; Admin Dose 1 DROPS; Start 10/13/16 at 09:00; Stop 11/12/16 at 08:59 Magnesium Hydroxide (Milk Of Magnesia Susp) 30 ml Q12H PRN PO; Start 10/12/16 at 19:15; Stop 11/11/16 at 19:14 Nystatin (Mycostatin Powder) 1 appln BID EXT Last administered on 10/13/16 09: 05; Admin Dose 1 APPLN; Start 10/12/16 at 21:00; Stop 11/11/16 at 20:59 Ondansetron HCl (Zofran Inj) 4 mg Q6H PRN IV; Start 10/12/16 at 19:15; Stop at 19:14 Pantoprazole Sodium (Protonix Tab) 40 mg QAM PO Last administered on 10/13/16 09:07; Admin Dose 40 MG; Start 10/13/16 at 09:00; Stop 11/12/16 at 08:59 Polyethylene 17 gm 17 gm DAILY PRN PO; Start 10/12/16 at 19:15; Stop 11/11/16 at 19:14 Raspberry (Raspberry Syrup 5ml Cup) 5 ml QAM PO Last administered on 10/13/16 09:05; Admin Dose 5 ML; Start 10/13/16 at 09:00; Stop 10/27/16 at 08:59 Sodium Bicarbonate (Sodium Bicarbonate Tab) 650 mg QAM PO Last administered on 09:07; Admin Dose 650 MG; Start 10/13/16 at 09:00; Stop 11/12/16 at 08: 59 Sodium Chloride (1/2 Nss 1000ml) 1,000 ml @ 50 mls/hr Q20H IV; Start 10/13/16 at 14:00; Stop 11/12/16 at 13:59 Vancomycin HCl (Vancomycin Oral Soln) 125 mg QAM PO Last administered on 09:06; Admin Dose 125 MG; Start 10/13/16 at 09:00; Stop 11/12/16 at 08:59 Vancomycin HCl 1 ea 1 ea UD PRN N/A; Start 10/13/16 at 13:15; Stop 11/12/16 at 13:14 Vancomycin HCl/ Sodium Chloride (Vancomycin Inj/ Nss 250ml) 276 ml @ 125 mls/ hr TODAY@1500 ONCE IV Last administered on 10/13/16 14:13; Admin Dose 125 MLS/ HR; Start 10/13/16 at 15:00; Stop 10/13/16 at 17:12 Objective Vital Signs Date Time Temp Pulse Resp B/P Pulse Ox O2 Delivery O2 Flow Rate FiO2 10/13/16 07:57 36.4 20 144/64 91 Nasal Cannula 2.0 10/13/16 04:00 Nasal Cannula 2.0 10/13/16 03:48 36.4 71 16 136/68 100 Room Air 10/12/16 23:59 Nasal Cannula 2.0 10/12/16 23:52 36.4 67 16 130/54 100 10/12/16 22:01 36.8 76 18 103/44 99 Nasal Cannula 8.0 10/12/16 20:09 76 24 85/43 100 Nasal Cannula 2.0 10/12/16 19:00 74 25 107/52 100 Nasal Cannula 2.0 10/12/16 18:36 58 18 108/52 100 10/12/16 18:09 74 18 96/52 98 Room Air 10/12/16 16:30 73 18 96/52 99 Room Air 10/12/16 15:31 81 10/12/16 15:29 37.0 82 24 109/58 98 Nasal Cannula 2.0 10/12/16 15:29 98 Nasal Cannula 2.0 Physical Exam Comments: nad, aox3, anicteric s1 s2 rrr, no murmurs appreciated basilar rales, no wheezing , no rhonchi abd soft nt/nd +BS no LE edema Laboratory Results Last 24 Hours Test 10/12/16 16:10 10/12/16 16:21 10/13/16 06:34 White Blood Count 8.13 K/uL 6.97 K/uL Red Blood Count 3.24 M/uL 3.26 M/uL Hemoglobin 10.0 g/dL 9.8 g/dL Hematocrit 32.1 % 32.3 % Mean Corpuscular Volume 99.1 fL 99.1 fL Mean Corpuscular Hemoglobin 30.9 pg 30.1 pg Mean Corpuscular Hemoglobin Concent 31.2 g/dl 30.3 g/dl Platelet Count 159 K/uL 141 K/uL Mean Platelet Volume 9.0 fL 9.2 fL Neutrophils (%) (Auto) 52.0 % Lymphocytes (%) (Auto) 34.2 % Monocytes (%) (Auto) 4.9 % Eosinophils (%) (Auto) 4.2 % Basophils (%) (Auto) 0.6 % Neutrophils # (Auto) 4.23 K/uL Lymphocytes # (Auto) 2.78 K/uL Monocytes # (Auto) 0.40 K/uL Eosinophils # (Auto) 0.34 K/uL Basophils # (Auto) 0.05 K/uL RDW Standard Deviation 60.3 fL 58.6 fL RDW Coefficient of Variation 16.5 % 16.3 % Immature Granulocyte % (Auto) 4.1 % Immature Granulocyte # (Auto) 0.33 K/uL Prothrombin Time 11.4 SECONDS Prothromb Time International Ratio 1.1 Activated Partial Thromboplast Time 27.1 SECONDS Partial Thromboplastin Ratio 1.0 Sodium Level 141 mmol/L 146 mmol/L Potassium Level 5.4 mmol/L 5.0 mmol/L Chloride Level 110 mmol/L 114 mmol/L Carbon Dioxide Level 24 mmol/L 21 mmol/L Anion Gap 7.0 mmol/L 11.0 mmol/L Blood Urea Nitrogen 89 mg/dl 87 mg/dl Creatinine 6.00 mg/dl 5.70 mg/dl Est Creatinine Clear Calc Drug Dose 6.7 ml/min 7.0 ml/min Estimated GFR () 6.9 7.4 Estimated GFR (Non- 6.0 6.3 BUN/Creatinine Ratio 14.9 15.5 Random Glucose 102 mg/dl 97 mg/dl Calcium Level 7.7 mg/dl 7.6 mg/dl Total Bilirubin 0.2 mg/dl Direct Bilirubin < 0.1 mg/dl Aspartate Amino Transf (AST/SGOT) 10 U/L Alanine Aminotransferase (ALT/SGPT) 16 U/L Alkaline Phosphatase 69 U/L Troponin I < 0.015 ng/ml Total Protein 5.7 gm/dl Albumin 2.6 gm/dl Urine Color DK YELLOW Urine Appearance TURBID Urine pH 6.0 Urine Specific Micro 1.016 Urine Protein 3+ Urine Glucose (UA) NEG Urine Ketones NEG Urine Occult Blood 3+ Urine Nitrite NEG Urine Bilirubin NEG Urine Urobilinogen NEG Urine Leukocyte Esterase LARGE Urine WBC (Auto) >30 /hpf Urine RBC (Auto) >30 /hpf Urine Hyaline Casts (Auto) 5-10 /lpf Urine Epithelial Cells (Auto) >30 /lpf Urine Bacteria (Auto) NEG Urine Renal Epithelial Cells 5-10 /lpf Urine Pathogenic Casts /lpf Urine Yeast (Auto) PRESENT Assessment and Plan 1. Hypotension - likely related to recurrent UTI - along with decreased po intake - received NSS bolus - resolved - holding coreg for now, hr and bp stable 2. Recurrent UTI - UA + LE and pyuria - just finished Omnicef 14-day course for E coli - previously had Kleb as well - complicated by chronic bilateral stents - will need ID for abx guidance and possible chronic suppressive therapy, if patient would benefit from this - Vanco/Aztreonam for now 3. BONNIE on CKD - followed by Dr. 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 CKD - MBD: cont na-bicarb - Anemia: defer to nephro 5. Chronic systolic CHF - h/o ischemic cardiomyopathy, CAD - holding coreg for now, monitor HR - cont asa/plavix/statin 6. dvt ppx hsq
[2016-10-13] MEDS: FEBUXOSTAT 40 MG TAB PO SCH (13:10)
[2016-10-13] MEDS ORDERED: VANCOMYCIN CONSULT ACTIVE PRN (13:15)
[2016-10-13] MEDS ORDERED: AZTREONAM IV 1,000 MG in DEXTROSE 5% 100ML 100 ML IV ONE (13:30)
[2016-10-13] MEDS: SODIUM CHLORIDE 0.45% 1000ML 1,000 ML IV SCH (14:00)
[2016-10-13] MEDS ORDERED: VANCOMYCIN INJ 1,300 MG in SODIUM CHLORIDE 0.9% 250ML 250 ML IV ONE (15:00)
[2016-10-13 15:39] VITALS: BP 121/56; PULSE 73; TEMP 36.5; O2SAT 100
[2016-10-13] MEDS: ONDANSETRON INJ 2 MG/ML 2 ML VIAL IV PRN (16:15)
--- NOTE | 2016-10-13 16:45 | Pharmacy Progress Note ---
Pharmacy Antibiotic Consult Date of Service: Oct 13, 2016. Pharmacy Dosing Scope Pharmacy is consulted to initiate vancomycin IV dosing therapy, order appropriate labs and adjust drug dose/frequency. Subjective The patient is a 81 year old female admitted on Oct 12, 2016 at 19:22. Objective Height (Feet): 5 Height (Inches): 4.00 Weight (Kilograms): 66.600 Lab Results (24hrs): Laboratory Tests Test 10/13/16 06:34 BUN/Creatinine Ratio 15.5 Blood Urea Nitrogen 87 mg/dl Creatinine 5.70 mg/dl White Blood Count 6.97 K/uL Assessment & Plan Patient started on vancomycin for recurrent UTI Vancomycin: * LD of vancomycin 1300 mg (~20 mg/kg) x 1 given * Patient with BONNIE on admission; will dose by levels until renal function stable * Will order a random level in the am to assist with further dosing Pharmacy will continue to follow and will adjust dose/frequency as necessary. Thank you
[2016-10-13 20:00] VITALS: BP 158/86; PULSE 85; TEMP 36.5; O2SAT 98
[2016-10-13] MEDS ORDERED: AZTREONAM CONSULT ACTIVE PRN ×2 (21:00)
[2016-10-13] MEDS ORDERED: FLUCONAZOLE / NSS 100 MG in PREMIXED NSS 50 ML IV SCH (21:00)
[2016-10-13] MEDS: AZTREONAM IV 250 MG in DEXTROSE 5% 100ML 100 ML IV SCH (22:15)
[2016-10-13] MEDS: ATORVASTATIN 40 MG TAB PO SCH (22:32)
[2016-10-14] VITALS: BP 135/74; PULSE 98; TEMP 37.2; O2SAT 98
[2016-10-14 03:55] VITALS: BP 124/68; PULSE 101; TEMP 36.9; O2SAT 97
[2016-10-14 05:54] LABS: BASO % 0.4 %; BASO ABS # 0.03 K/uL (0-0.2); COMPLETE YES; EOS % 3.5 %; HEMATOCRIT 29.2 % (37-47); IG% 4.1 %; LYMPH % 22.4 %; LYMPH ABS # 1.53 K/uL (1.2-3.4); MEAN CELL VOLUME 99.3 fL (80-100); MEAN CORPUSCULAR HGB CONC 31.2 g/dl (32-36); MEAN PLATELET VOLUME 9.2 fL (7.4-10.4); MONO % 3.7 %; NEUT % 65.9 %; PLATELET COUNT 125 K/uL (130-400); RED BLOOD COUNT 2.94 M/uL (4.2-5.4); WHITE BLOOD COUNT 6.84 K/uL (4.8-10.8)
[2016-10-14] MEDS: AZTREONAM IV 250 MG in DEXTROSE 5% 100ML 100 ML IV SCH ×3 (06:01→22:00)
--- NOTE | 2016-10-14 06:09 | Medical Consult ---
Consultation Date of Consultation: Oct 13, 2016. Attending Physician: Yolis France MD Reason for Consultation: Recurrent complicated urinary tract infection History of Present Illness 81-year-old female well known to the Infectious Disease service, with history of obstructive uropathy status post ureteral stent placement, with multiple recurrences of urinary tract infection associated with encephalopathy. She was hospitalized earlier this month with E coli UTI successfully treated with antibiotics. Over 2-3 days prior to this admission, patient has been relatively hypotensive with poor oral intake, though no report of fever or chills or change in urine color or odor. She has been started empirically on IV vancomycin and aztreonam. Urine culture is pending. Hemodynamically stable thus far. No fever. Denies abdominal or flank plain. Past Medical/Surgical History Medical Problems: (1) Acute on chronic kidney failure Status: Acute (2) Acute renal failure Status: Acute (3) BONNIE (acute kidney injury) Status: Acute (4) Altered mental status Status: Acute (5) Altered mental status Status: Acute (6) ARF (acute renal failure) Status: Acute (7) CRD (chronic renal disease) Status: Acute (8) Dehydration Status: Acute (9) Dehydration Status: Acute (10) Fever Status: Acute (11) Hyperkalemia Status: Acute (12) Hyperkalemia Status: Acute (13) Hyperkalemia Status: Acute (14) Hypomagnesemia Status: Acute (15) PICC (peripherally inserted central catheter) in place Status: Acute (16) Pneumonia Status: Acute (17) Renal failure Status: Acute (18) Renal insufficiency Status: Acute (19) Renal insufficiency Status: Acute (20) Sepsis Status: Acute (21) Sepsis Status: Acute (22) Uremia Status: Acute (23) UTI (urinary tract infection) Status: Acute (24) UTI (urinary tract infection) Status: Acute (25) UTI (urinary tract infection) Status: Acute (26) Weakness Status: Acute (27) Weakness Status: Acute (28) Weakness Status: Acute (29) Weakness Status: Acute (30) Weakness Status: Acute Medical Problems: (1) Acute hypernatremia (2) Acute kidney injury (3) Acute on chronic renal failure (4) Acute renal failure superimposed on stage 4 chronic kidney disease (5) Acute urinary tract infection (6) Anemia (7) Benign hypertension (8) Cardiac catheterization (9) CHF (congestive heart failure) (10) CHF (congestive heart failure) (11) Cholecystectomy (12) Chronic kidney disease (13) CKD (chronic kidney disease) stage 5, GFR less than 15 ml/min (14) Coronary artery disease (15) Dehydration (16) Diabetes (17) Hypotension (18) Ischemic cardiomyopathy (19) Metabolic acidosis (20) Metabolic acidosis with increased anion gap and reduced excretion of inorganic acids (21) Myocardial infarction (22) Pneumonia (23) 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 (24) Recurrent UTI (25) Secondary hyperparathyroidism of renal origin (26) Sepsis (27) Sepsis due to Klebsiella (28) sepsis recurrent UTI BONNIE on ckd (29) Systolic CHF (30) UTI (urinary tract infection) (31) UTI (urinary tract infection) (32) UTI (urinary tract infection) (33) UTI, altered mental status (34) Weakness Surgical Problems: (1) History of cholecystectomy (2) History of ureter stent Family History Diabetes mellitus Other cardiovascular diseases Stroke Social History Smoking Status: Never Smoker Smokeless Tobacco Use: No Alcohol Use: none Drug Use: none Marital Status: Housing Status: lives with significant other Occupation Status: retired Allergies Coded Allergies: Sulfa Antibiotics (Verified Allergy, Intermediate, BODY SWELLING,NAUSEA AND VOMITNG, 10/12/16) Penicillins (Verified Allergy, Unknown, Tolerates Primaxin, does NOT tolerate ZOSYN, 10/13/16) PER PCP RECORDS Current Inpatient Medications Current Inpatient Medications Medications (Trade) Dose Ordered Sig/Helder Route Start Time Stop Time Status Last Admin Dose Admin Heparin Sodium (Porcine) (Heparin Sq 5000 Unit/0.5ml) 5,000 unit Q12 SQ 10/12/16 21:00 11/11/16 20:59 10/13/16 21:55 5,000 UNIT Acetaminophen (Tylenol Tab) 650 mg Q4H PRN PO 10/12/16 19:15 11/11/16 19:14 Al Hydrox/Mg Hydrox/Simethicone (Maalox Max Susp) 15 ml Q4H PRN PO 10/12/16 19:15 11/11/16 19:14 Magnesium Hydroxide (Milk Of Magnesia Susp) 30 ml Q12H PRN PO 10/12/16 19:15 11/11/16 19:14 Ondansetron HCl (Zofran Inj) 4 mg Q6H PRN IV 10/12/16 19:15 11/11/16 19:14 10/13/16 16:15 4 MG Polyethylene (Miralax Powder Packet) 17 gm DAILY PRN PO 10/12/16 19:15 11/11/16 19:14 Aspirin (Ecotrin Tab) 81 mg QPM PO 10/12/16 21:00 11/11/16 20:59 10/13/16 21:52 81 MG Atorvastatin Calcium (Lipitor Tab) 80 mg QPM PO 10/12/16 21:00 11/11/16 20:59 Future hold 10/13/16 22:32 80 MG Clopidogrel Bisulfate (plAVix TAB) 75 mg QPM PO 10/12/16 21:00 11/11/16 20:59 10/13/16 21:52 75 MG Nystatin (Mycostatin Powder) 1 appln BID EXT 10/12/16 21:00 11/11/16 20:59 10/13/16 21:00 1 APPLN Pantoprazole Sodium (Protonix Tab) 40 mg QAM PO 10/13/16 09:00 11/12/16 08:59 10/13/16 09:07 40 MG Sodium Bicarbonate (Sodium Bicarbonate Tab) 650 mg QAM PO 10/13/16 09:00 11/12/16 08:59 10/13/16 09:07 650 MG Vancomycin HCl (Vancomycin Oral Soln) 125 mg QAM PO 10/13/16 09:00 11/12/16 08:59 10/13/16 09:06 125 MG Febuxostat (Uloric) 40 mg DAILY@1200 PO 10/13/16 12:00 11/12/16 11:59 10/13/16 13:10 40 MG Lactobacillus Acidophilus (Floranex Tab) 1 tab QPM PO 10/12/16 21:00 11/11/16 20:59 10/13/16 21:52 1 TAB Raspberry (Raspberry Syrup 5ml Cup) 5 ml QAM PO 10/13/16 09:00 10/27/16 08:59 10/13/16 09:05 5 ML Loteprednol Etabonate (Lotemax 0.5%) 1 drops QAM OPB 10/13/16 09:00 11/12/16 08:59 10/13/16 09:04 1 DROPS Vancomycin HCl 1 ea 1 ea UD PRN N/A 10/13/16 13:15 11/12/16 13:14 Sodium Chloride (1/2 Nss 1000ml) 1,000 ml @ 50 mls/hr Q20H IV 10/13/16 14:00 11/12/16 13:59 10/13/16 14:00 50 MLS/HR Aztreonam 1 ea 1 ea UD PRN N/A 10/13/16 21:00 11/12/16 20:59 Aztreonam/Dextrose (Azactam IV/D5 100ml) 102.5 ml @ 110 mls/hr Q8H IV 10/13/16 22:00 10/23/16 21:59 10/13/16 22:15 110 MLS/HR Review of Systems Constitutional: + fatigue, + weakness, No fever Eyes: No problem reported ENT: No problem reported Respiratory: No problem reported Cardiovascular: No problem reported Abdomen: No problem reported Musculoskeletal: No problem reported Genitourinary - Female: + urinary incontinence Neurologic: + weakness Psychiatric: No problem reported Endocrine: + fatigue Hematologic / Lymphatic: No problem reported Integumentary: No problem reported Allergic / Immunologic: No problem reported Physical Exam Date Time Temp Pulse Resp B/P Pulse Ox O2 Delivery O2 Flow Rate FiO2 10/14/16 04:15 Nasal Cannula 2.0 10/14/16 03:55 36.9 101 24 124/68 97 Nasal Cannula 2.0 10/14/16 00:02 Nasal Cannula 2.0 10/14/16 00:00 37.2 98 24 135/74 98 Nasal Cannula 2.0 10/13/16 20:00 36.5 85 16 158/86 98 Nasal Cannula 2.0 10/13/16 20:00 Nasal Cannula 2.0 10/13/16 16:00 Nasal Cannula 2.0 10/13/16 15:39 36.5 73 24 121/56 100 Room Air 2.0 10/13/16 12:11 36.0 78 22 122/51 91 Nasal Cannula 2.0 10/13/16 12:00 Nasal Cannula 2.0 10/13/16 08:00 Nasal Cannula 2.0 10/13/16 07:57 36.4 20 144/64 91 Nasal Cannula 2.0 General Appearance: WD/WN, no apparent distress Head: normocephalic, atraumatic Eyes: normal inspection, EOMI, sclerae normal ENT: normal ENT inspection, pharynx normal Neck: supple, no adenopathy, thyroid normal, trachea midline Respiratory/Chest: chest non-tender, lungs clear, normal breath sounds, no respiratory distress Cardiovascular: regular rate, rhythm, no gallop, no murmur Abdomen/GI: normal bowel sounds, non tender, soft, no organomegaly Back: normal inspection, no CVA tenderness Extremities/Musculoskelatal: no calf tenderness, normal capillary refill, non- tender Neurologic/Psych: alert, oriented x 3 Skin: normal color, warm/dry, no rash Lymphatic: no adenopathy Laboratory Results Last 24 Hours Test 10/13/16 06:34 10/14/16 05:24 White Blood Count 6.97 K/uL 6.84 K/uL Red Blood Count 3.26 M/uL 2.94 M/uL Hemoglobin 9.8 g/dL 9.1 g/dL Hematocrit 32.3 % 29.2 % Mean Corpuscular Volume 99.1 fL 99.3 fL Mean Corpuscular Hemoglobin 30.1 pg 31.0 pg Mean Corpuscular Hemoglobin Concent 30.3 g/dl 31.2 g/dl RDW Standard Deviation 58.6 fL 58.2 fL RDW Coefficient of Variation 16.3 % 16.1 % Platelet Count 141 K/uL 125 K/uL Mean Platelet Volume 9.2 fL 9.2 fL Sodium Level 146 mmol/L Potassium Level 5.0 mmol/L Chloride Level 114 mmol/L Carbon Dioxide Level 21 mmol/L Anion Gap 11.0 mmol/L Blood Urea Nitrogen 87 mg/dl Creatinine 5.70 mg/dl Est Creatinine Clear Calc Drug Dose 7.0 ml/min Estimated GFR () 7.4 Estimated GFR (Non- 6.3 BUN/Creatinine Ratio 15.5 Random Glucose 97 mg/dl Calcium Level 7.6 mg/dl Neutrophils (%) (Auto) 65.9 % Lymphocytes (%) (Auto) 22.4 % Monocytes (%) (Auto) 3.7 % Eosinophils (%) (Auto) 3.5 % Basophils (%) (Auto) 0.4 % Neutrophils # (Auto) 4.51 K/uL Lymphocytes # (Auto) 1.53 K/uL Monocytes # (Auto) 0.25 K/uL Eosinophils # (Auto) 0.24 K/uL Basophils # (Auto) 0.03 K/uL Immature Granulocyte % (Auto) 4.1 % Immature Granulocyte # (Auto) 0.28 K/uL [~ rep ct add3]] RENAL ULTRASOUND CLINICAL HISTORY: Acute kidney injury. Stents in place. COMPARISON STUDY: Renal ultrasound September 20, [address] of the abdomen and pelvis September 16, 2015. TECHNIQUE: Sonography of the kidneys and the urinary bladder was performed. FINDINGS: The exam is compromised due to suboptimal penetration which particularly affects visualization of the left kidney. Renal atrophy with cortical thinning is again noted. Mild to moderate right hydronephrosis has improved since exam of September 20, 2016. Left hydronephrosis is difficult to assess on this exam but likely improved. The distal aspect of the stents are noted within the bladder. IMPRESSION: 1. Technically difficult study due to suboptimal penetration. Mild to moderate hydronephrosis, likely improved since exam of September 20, 2016. 2. Ureteral stents in place. 3. Marked renal cortical thinning which is unchanged. Assessment & Plan 81-year-old female with history of recurrent UTIs associated with encephalopathy, now presents with 2 days of hypertension with possibility of recurrent urinary tract infection. Given prior antibiotic use and allergies, vancomycin and aztreonam appropriate pending further culture results. We will adjust once these are available. Length of therapy to be determined. We will follow.
[2016-10-14 06:50] LABS: BUN/CREATININE RATIO 16.8 (10-20); CALCIUM 7.9 mg/dl (8.5-10.1); CREATININE 5.1 mg/dl (0.60-1.20); MAGNESIUM 1.9 mg/dl (1.8-2.4); PHOSPHORUS 4.1 mg/dl (2.5-4.9); POTASSIUM 4.8 mmol/L (3.5-5.1)
--- NOTE | 2016-10-14 07:31 | DIAGNOSTIC IMAGING REPORT ---
CHEST ONE VIEW PORTABLE CLINICAL HISTORY: Pulmonary edema. Effusions. COMPARISON STUDY: Chest radiograph October 12, 2016. FINDINGS: A right PICC and left ablative pacer/AICD remain in place. There is no pneumothorax. There are suspected trace bilateral pleural effusions. Cardiomediastinal silhouette is stable. There is pulmonary vascular congestion without overt edema. This is improved. IMPRESSION: 1. Interval improvement in pulmonary vascular congestion. 2. Trace bilateral pleural effusions. Electronically signed by: Mckinley Winkler M.D. 10/14/2016 7:30 AM Dictated Date/Time: 10/14/2016 7:28 AM
[2016-10-14 08:10] VITALS: BP 128/71; PULSE 93; TEMP 36.9; O2SAT 98
[2016-10-14] MEDS: PANTOprazole SOD 40 MG TAB PO SCH (08:55)
[2016-10-14] MEDS: SODIUM BICARBONATE 650 MG TAB PO SCH (08:55)
[2016-10-14] MEDS: VANCOMYCIN HCL 125 MG/2.5ML SOLN PO SCH (08:55)
[2016-10-14] MEDS: CARVEDILOL 3.125 MG TAB PO SCH ×2 (08:55→21:48)
[2016-10-14] MEDS: RASPBERRY SYRUP 5 ML UDP PO SCH (08:56)
[2016-10-14] MEDS: LOTEPREDNOL ETABONATE 0.5% OPB SCH (08:56)
[2016-10-14] MEDS: NYSTATIN POWDER 15GM BTL EXT SCH ×2 (08:57→21:49)
[2016-10-14] MEDS: HEPARIN SOD 5000 UNIT/0.5 ML CARP SQ SCH ×2 (08:59→21:51)
--- NOTE | 2016-10-14 11:13 | Progress Note ---
Subjective Date of Service: Oct 14, 2016. Subjective Pt evaluation today including: conversation w/ patient, conversation w/ family , physical exam, lab review, review of studies, review of inpatient medication list Feeling better today. at bedside. No chest pain , no sob. Comfortable. Tolearting some po intake. Problem List Medical Problems: (1) Acute on chronic kidney failure Status: Acute (2) Acute renal failure Status: Acute (3) BONNIE (acute kidney injury) Status: Acute (4) Altered mental status Status: Acute (5) Altered mental status Status: Acute (6) ARF (acute renal failure) Status: Acute (7) CRD (chronic renal disease) Status: Acute (8) Dehydration Status: Acute (9) Dehydration Status: Acute (10) Fever Status: Acute (11) Hyperkalemia Status: Acute (12) Hyperkalemia Status: Acute (13) Hyperkalemia Status: Acute (14) Hypomagnesemia Status: Acute (15) PICC (peripherally inserted central catheter) in place Status: Acute (16) Pneumonia Status: Acute (17) Renal failure Status: Acute (18) Renal insufficiency Status: Acute (19) Renal insufficiency Status: Acute (20) Sepsis Status: Acute (21) Sepsis Status: Acute (22) Uremia Status: Acute (23) UTI (urinary tract infection) Status: Acute (24) UTI (urinary tract infection) Status: Acute (25) UTI (urinary tract infection) Status: Acute (26) Weakness Status: Acute (27) Weakness Status: Acute (28) Weakness Status: Acute (29) Weakness Status: Acute (30) Weakness Status: Acute Review of Systems All Other Systems: Reviewed and Negative Medications Acetaminophen (Tylenol Tab) 650 mg Q4H PRN PO; Start 10/12/16 at 19:15; Stop 11/11/16 at 19:14 Al Hydrox/Mg Hydrox/Simethicone (Maalox Max Susp) 15 ml Q4H PRN PO; Start 10/12 at 19:15; Stop 11/11/16 at 19:14 Aspirin (Ecotrin Tab) 81 mg QPM PO Last administered on 10/13/16t 21:52; Admin Dose 81 MG; Start 10/12/16 at 21:00; Stop 11/11/16 at 20:59 Atorvastatin Calcium (Lipitor Tab) 80 mg QPM PO Last administered on 10/13/16 22:32; Admin Dose 80 MG; Start 10/12/16 at 21:00; Stop 11/11/16 at 20:59; Status Future hold Aztreonam 1 ea 1 ea UD PRN N/A; Start 10/13/16 at 21:00; Stop 11/12/16 at 20:59 Aztreonam/Dextrose (Azactam IV/D5 100ml) 102.5 ml @ 110 mls/hr Q8H IV Last administered on 10/14/16 06:01; Admin Dose 110 MLS/HR; Start 10/13/16 at 22:00 ; Stop 10/23/16 at 21:59 Carvedilol (Coreg Tab) 3.125 mg BID PO Last administered on 10/14/16 08:55; Admin Dose 3.125 MG; Start 10/14/16 at 09:00; Stop 11/13/16 at 08:59 Clopidogrel Bisulfate (plAVix TAB) 75 mg QPM PO Last administered on 10/13/16 21:52; Admin Dose 75 MG; Start 10/12/16 at 21:00; Stop 11/11/16 at 20:59 Epoetin Buck (Procrit Inj) 10,000 units ONE SQ; Start 10/14/16 at 13:30; Stop at 13:29; Status UNV Febuxostat (Uloric) 40 mg DAILY@1200 PO Last administered on 10/14/16 12:55; Admin Dose 40 MG; Start 10/13/16 at 12:00; Stop 11/12/16 at 11:59 Heparin Sodium (Porcine) (Heparin Sq 5000 Unit/0.5ml) 5,000 unit Q12 SQ Last administered on 10/14/16 08:59; Admin Dose 5,000 UNIT; Start 10/12/16 at 21:00 ; Stop 11/11/16 at 20:59 Lactobacillus Acidophilus (Floranex Tab) 1 tab QPM PO Last administered on 21:52; Admin Dose 1 TAB; Start 10/12/16 at 21:00; Stop 11/11/16 at 20:59 Loteprednol Etabonate (Lotemax 0.5%) 1 drops QAM OPB Last administered on 08:56; Admin Dose 1 DROPS; Start 10/13/16 at 09:00; Stop 11/12/16 at 08:59 Magnesium Hydroxide (Milk Of Magnesia Susp) 30 ml Q12H PRN PO; Start 10/12/16 at 19:15; Stop 11/11/16 at 19:14 Nystatin (Mycostatin Powder) 1 appln BID EXT Last administered on 10/14/16 08: 57; Admin Dose 1 APPLN; Start 10/12/16 at 21:00; Stop 11/11/16 at 20:59 Ondansetron HCl (Zofran Inj) 4 mg Q6H PRN IV Last administered on 10/13/16 16: 15; Admin Dose 4 MG; Start 10/12/16 at 19:15; Stop 11/11/16 at 19:14 Pantoprazole Sodium (Protonix Tab) 40 mg QAM PO Last administered on 10/14/16 08:55; Admin Dose 40 MG; Start 10/13/16 at 09:00; Stop 11/12/16 at 08:59 Polyethylene (Miralax Powder Packet) 17 gm DAILY PRN PO; Start 10/12/16 at 19: 15; Stop 11/11/16 at 19:14 Raspberry (Raspberry Syrup 5ml Cup) 5 ml QAM PO Last administered on 10/14/16 08:56; Admin Dose 5 ML; Start 10/13/16 at 09:00; Stop 10/27/16 at 08:59 Sodium Bicarbonate (Sodium Bicarbonate Tab) 650 mg QAM PO Last administered on 08:55; Admin Dose 650 MG; Start 10/13/16 at 09:00; Stop 11/12/16 at 08: 59 Sodium Chloride (1/2 Nss 1000ml) 1,000 ml @ 50 mls/hr Q20H IV Last administered on 10/14/16 12:54; Admin Dose 50 MLS/HR; Start 10/13/16 at 14:00; Stop 11/12/16 at 13:59 Vancomycin HCl (Vancomycin Oral Soln) 125 mg QAM PO Last administered on 08:55; Admin Dose 125 MG; Start 10/13/16 at 09:00; Stop 11/12/16 at 08:59 Vancomycin HCl 1 ea 1 ea UD PRN N/A; Start 10/13/16 at 13:15; Stop 11/12/16 at 13:14 Objective Vital Signs Date Time Temp Pulse Resp B/P Pulse Ox O2 Delivery O2 Flow Rate FiO2 10/14/16 08:10 36.9 93 18 128/71 98 Nasal Cannula 2.0 10/14/16 04:15 Nasal Cannula 2.0 10/14/16 03:55 36.9 101 24 124/68 97 Nasal Cannula 2.0 10/14/16 00:02 Nasal Cannula 2.0 10/14/16 00:00 37.2 98 24 135/74 98 Nasal Cannula 2.0 10/13/16 20:00 36.5 85 16 158/86 98 Nasal Cannula 2.0 10/13/16 20:00 Nasal Cannula 2.0 10/13/16 16:00 Nasal Cannula 2.0 10/13/16 15:39 36.5 73 24 121/56 100 Room Air 2.0 10/13/16 12:11 36.0 78 22 122/51 91 Nasal Cannula 2.0 10/13/16 12:00 Nasal Cannula 2.0 Physical Exam Comments: nad, aox3 cohrent and fluent speech, no asterixis s1 s2 rrr, no murmurs appreciated ctab no w/r/r abd soft nt/nd +BS no LE edema Laboratory Results Last 24 Hours Test 10/14/16 05:24 White Blood Count 6.84 K/uL Red Blood Count 2.94 M/uL Hemoglobin 9.1 g/dL Hematocrit 29.2 % Mean Corpuscular Volume 99.3 fL Mean Corpuscular Hemoglobin 31.0 pg Mean Corpuscular Hemoglobin Concent 31.2 g/dl Platelet Count 125 K/uL Mean Platelet Volume 9.2 fL Neutrophils (%) (Auto) 65.9 % Lymphocytes (%) (Auto) 22.4 % Monocytes (%) (Auto) 3.7 % Eosinophils (%) (Auto) 3.5 % Basophils (%) (Auto) 0.4 % Neutrophils # (Auto) 4.51 K/uL Lymphocytes # (Auto) 1.53 K/uL Monocytes # (Auto) 0.25 K/uL Eosinophils # (Auto) 0.24 K/uL Basophils # (Auto) 0.03 K/uL RDW Standard Deviation 58.2 fL RDW Coefficient of Variation 16.1 % Immature Granulocyte % (Auto) 4.1 % Immature Granulocyte # (Auto) 0.28 K/uL Sodium Level 145 mmol/L Potassium Level 4.8 mmol/L Chloride Level 114 mmol/L Carbon Dioxide Level 22 mmol/L Anion Gap 9.0 mmol/L Blood Urea Nitrogen 86 mg/dl Creatinine 5.10 mg/dl Est Creatinine Clear Calc Drug Dose 7.8 ml/min Estimated GFR () 8.4 Estimated GFR (Non- 7.3 BUN/Creatinine Ratio 16.8 Random Glucose 101 mg/dl Calcium Level 7.9 mg/dl Phosphorus Level 4.1 mg/dl Magnesium Level 1.9 mg/dl Random Vancomycin Level 17.6 mcg/ml CHEST ONE VIEW PORTABLE CLINICAL HISTORY: Pulmonary edema. Effusions. COMPARISON STUDY: Chest radiograph October 12, 2016. FINDINGS: A right PICC and left ablative pacer/AICD remain in place. There is no pneumothorax. There are suspected trace bilateral pleural effusions. Cardiomediastinal silhouette is stable. There is pulmonary vascular congestion without overt edema. This is improved. IMPRESSION: 1. Interval improvement in pulmonary vascular congestion. 2. Trace bilateral pleural effusions. Assessment and Plan 1. Hypotension - likely related to recurrent UTI - along with decreased po intake - received NSS bolus - will resume very low-dose coreg for rate control and monitor BP 2. Recurrent UTI - UA + LE and pyuria - just finished Omnicef 14-day course for E coli - previously had Kleb as well - complicated by chronic bilateral stents - will need ID for abx guidance, h/o c diff from chronic suppressive abx therapy - Vanco/Aztreonam for now 3. BONNIE on CKD - followed by Dr. Corral - multifactorial from volume depletion from decreased po intake, hypotension - non-oliguric - hydronephrosis stable - avoid nephrotoxins, NSAIDs, avoid non-emergent contrast studies and hypotension - cont low-rate IVF but will switch to 1/2 NSS with hypernatremia and hyperchloremia - no indication for urgent [employer] at this time - nephro on board 4. CKD - MBD: cont na-bicarb - Anemia: epo 19374 x1 dose 5. Chronic systolic CHF - h/o ischemic cardiomyopathy, CAD - holding coreg for now, monitor HR - cont asa/plavix/statin 6. dvt ppx hsq
[2016-10-14 12:14] VITALS: BP 112/53; PULSE 83; TEMP 36.7; O2SAT 100
--- NOTE | 2016-10-14 12:35 | Nephrology Consultation ---
Nephrology Consultation Date & Providers Date of Consultation: Oct 14, 2016. Primary Care Provider: José Luis Griffin MD Referring Provider: Reason for Consultation BONNIE/CKD History of Present Illness Mrs. Chase is an 81-year-old female who was seen this morning for evaluation of acute on chronic kidney injury and recurrent UTI. Patient was seen & evaluated in her hospital room with her at the bedside. Medical records in the hospital EMR were reviewed. She presented to [facility] with sepsis and hypotension associated with a recurrent urinary tract infection. Clinically , she improved quickly with treatment. She required volume resuscitation and antibiotics. Urine culture pending. No persistent evidence of infection at this time. She is currently maintained on aztreonam. ID has been consulted. There are multiple similar recent hospitalizations. Recent infections include klebsiella and E coli. The patient and her have refused to consider PCN. 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 She has an AICD in place. 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 Mrs. Chase has urinary and fecal incontinence. She wears Tranquility briefs. She suffers from interstitial cystitis and recurrent UTI. This has resulted in need for chronic antibiotic therapy which has been complicated by clostridium difficile colitis and recurrent diarrhea. In 07/02 the patient underwent cystoscopy. Mrs. Chase was found to have severe bladder inflammation resulting in bilateral ureteral obstruction and BONNIE. She subsequently underwent bilateral ureteral stent placement. She has been having these changed out on a regular basis by urology. She is scheduled for her next ureteral stent change 08/03. We have discussed patient's advanced renal impairment. She does not wish to pursue dialysis. She desires only conservative medical management. Past Medical/Surgical History Medical: # CKD stage IV (advanced impairment). 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 difficile colitis # Chronic respiratory failure requiring ATC 02 # Obesity # General debilitated condition Surgical: # Bilateral corneal transplant # Cholecystectomy # Appendectomy # AICD # Bilateral ureteral stent 07/02 Allergies Coded Allergies: Sulfa Antibiotics (Verified Allergy, Intermediate, BODY SWELLING,NAUSEA AND VOMITNG, 10/12/16) Penicillins (Verified Allergy, Unknown, Tolerates Primaxin, does NOT tolerate ZOSYN, 10/13/16) PER PCP RECORDS Inpatient Medications Current Inpatient Medications Medications (Trade) Dose Ordered Sig/Helder Route Start Time Stop Time Status Last Admin Dose Admin Heparin Sodium (Porcine) (Heparin Sq 5000 Unit/0.5ml) 5,000 unit Q12 SQ 10/12/16 21:00 11/11/16 20:59 10/14/16 08:59 5,000 UNIT Acetaminophen (Tylenol Tab) 650 mg Q4H PRN PO 10/12/16 19:15 11/11/16 19:14 Al Hydrox/Mg Hydrox/Simethicone (Maalox Max Susp) 15 ml Q4H PRN PO 10/12/16 19:15 11/11/16 19:14 Magnesium Hydroxide (Milk Of Magnesia Susp) 30 ml Q12H PRN PO 10/12/16 19:15 11/11/16 19:14 Ondansetron HCl (Zofran Inj) 4 mg Q6H PRN IV 10/12/16 19:15 11/11/16 19:14 10/13/16 16:15 4 MG Polyethylene (Miralax Powder Packet) 17 gm DAILY PRN PO 10/12/16 19:15 11/11/16 19:14 Aspirin (Ecotrin Tab) 81 mg QPM PO 10/12/16 21:00 11/11/16 20:59 10/13/16 21:52 81 MG Atorvastatin Calcium (Lipitor Tab) 80 mg QPM PO 10/12/16 21:00 11/11/16 20:59 Future hold 10/13/16 22:32 80 MG Clopidogrel Bisulfate (plAVix TAB) 75 mg QPM PO 10/12/16 21:00 11/11/16 20:59 10/13/16 21:52 75 MG Nystatin (Mycostatin Powder) 1 appln BID EXT 10/12/16 21:00 11/11/16 20:59 10/14/16 08:57 1 APPLN Pantoprazole Sodium (Protonix Tab) 40 mg QAM PO 10/13/16 09:00 11/12/16 08:59 10/14/16 08:55 40 MG Sodium Bicarbonate (Sodium Bicarbonate Tab) 650 mg QAM PO 10/13/16 09:00 11/12/16 08:59 10/14/16 08:55 650 MG Vancomycin HCl (Vancomycin Oral Soln) 125 mg QAM PO 10/13/16 09:00 11/12/16 08:59 10/14/16 08:55 125 MG Febuxostat (Uloric) 40 mg DAILY@1200 PO 10/13/16 12:00 11/12/16 11:59 10/13/16 13:10 40 MG Lactobacillus Acidophilus (Floranex Tab) 1 tab QPM PO 10/12/16 21:00 11/11/16 20:59 10/13/16 21:52 1 TAB Raspberry (Raspberry Syrup 5ml Cup) 5 ml QAM PO 10/13/16 09:00 10/27/16 08:59 10/14/16 08:56 5 ML Loteprednol Etabonate (Lotemax 0.5%) 1 drops QAM OPB 10/13/16 09:00 11/12/16 08:59 10/14/16 08:56 1 DROPS Vancomycin HCl 1 ea 1 ea UD PRN N/A 10/13/16 13:15 11/12/16 13:14 Sodium Chloride (1/2 Nss 1000ml) 1,000 ml @ 50 mls/hr Q20H IV 10/13/16 14:00 11/12/16 13:59 10/13/16 14:00 50 MLS/HR Aztreonam 1 ea 1 ea UD PRN N/A 10/13/16 21:00 11/12/16 20:59 Aztreonam/Dextrose (Azactam IV/D5 100ml) 102.5 ml @ 110 mls/hr Q8H IV 10/13/16 22:00 10/23/16 21:59 10/14/16 06:01 110 MLS/HR Carvedilol (Coreg Tab) 3.125 mg BID PO 10/14/16 09:00 11/13/16 08:59 10/14/16 08:55 3.125 MG Family History Diabetes mellitus Other cardiovascular diseases Stroke Social History Smoking Status: Never Smoker Smokeless Tobacco Use: No Alcohol Use: none Drug Use: none Marital Status: Housing Status: lives with significant other (with home health services) 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 Review of Systems A complete review of systems was performed. Pertinent positives are noted above. All other systems are negative. Physical Exam Date Time Temp Pulse Resp B/P Pulse Ox O2 Delivery O2 Flow Rate FiO2 10/14/16 12:14 36.7 83 20 112/53 100 Nasal Cannula 2.0 10/14/16 08:10 36.9 93 18 128/71 98 Nasal Cannula 2.0 10/14/16 08:00 Nasal Cannula 2.0 10/14/16 04:15 Nasal Cannula 2.0 10/14/16 03:55 36.9 101 24 124/68 97 Nasal Cannula 2.0 10/14/16 00:02 Nasal Cannula 2.0 10/14/16 00:00 37.2 98 24 135/74 98 Nasal Cannula 2.0 10/13/16 20:00 36.5 85 16 158/86 98 Nasal Cannula 2.0 10/13/16 20:00 Nasal Cannula 2.0 10/13/16 16:00 Nasal Cannula 2.0 10/13/16 15:39 36.5 73 24 121/56 100 Room Air 2.0 General Appearance: no apparent distress, + pertinent finding (Frail, elderly) Head: normocephalic, atraumatic Eyes: sclerae normal ENT: normal ENT inspection, pharynx normal Neck: supple, no JVD Respiratory/Chest: lungs clear, no respiratory distress, no accessory muscle use, + rales (few at right base) Cardiovascular: regular rate, rhythm, no gallop Abdomen/GI: non tender, soft Extremities/Musculoskelatal: normal inspection, no pedal edema Neurologic/Psych: alert, normal mood/affect Laboratory Results Last 24 Hours Test 10/14/16 05:24 White Blood Count 6.84 K/uL Red Blood Count 2.94 M/uL Hemoglobin 9.1 g/dL Hematocrit 29.2 % Mean Corpuscular Volume 99.3 fL Mean Corpuscular Hemoglobin 31.0 pg Mean Corpuscular Hemoglobin Concent 31.2 g/dl Platelet Count 125 K/uL Mean Platelet Volume 9.2 fL Neutrophils (%) (Auto) 65.9 % Lymphocytes (%) (Auto) 22.4 % Monocytes (%) (Auto) 3.7 % Eosinophils (%) (Auto) 3.5 % Basophils (%) (Auto) 0.4 % Neutrophils # (Auto) 4.51 K/uL Lymphocytes # (Auto) 1.53 K/uL Monocytes # (Auto) 0.25 K/uL Eosinophils # (Auto) 0.24 K/uL Basophils # (Auto) 0.03 K/uL RDW Standard Deviation 58.2 fL RDW Coefficient of Variation 16.1 % Immature Granulocyte % (Auto) 4.1 % Immature Granulocyte # (Auto) 0.28 K/uL Sodium Level 145 mmol/L Potassium Level 4.8 mmol/L Chloride Level 114 mmol/L Carbon Dioxide Level 22 mmol/L Anion Gap 9.0 mmol/L Blood Urea Nitrogen 86 mg/dl Creatinine 5.10 mg/dl Est Creatinine Clear Calc Drug Dose 7.8 ml/min Estimated GFR () 8.4 Estimated GFR (Non- 7.3 BUN/Creatinine Ratio 16.8 Random Glucose 101 mg/dl Calcium Level 7.9 mg/dl Phosphorus Level 4.1 mg/dl Magnesium Level 1.9 mg/dl Random Vancomycin Level 17.6 mcg/ml Impression (1) 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 (2) Acute kidney injury (3) CKD (chronic kidney disease) stage 5, GFR less than 15 ml/min (4) Hydronephrosis Mrs. Chase was admitted to [facility] with sepsis due to recurrent UTI. She has a recent similar admission. Current admission complicated by acute on chronic kidney injury. She has chronic bladder inflammation obstructing her ureters. She has had bilateral ureteral stents placed and changed out since 07/02. The patient has suffered from recurrent Klebsiella UTI as well as prior E coli UTI. She has advanced CKD but has refused hemodialysis. She refused to consider PCN tubes in the past. [facility] - CKD stage V (ESRD - Baseline creatinine 3.0 w/ EGFR 13 cc/minute. Patient has indicated that she does not want HD if her kidneys fail. 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 difficile colitis, ICM w/ LVEF 25%, moderate MR, pulmonary HTN and moderate TR, AICD placement, hypercholesterolemia, chronic respiratory failure requiring ATC 02, obesity (BMI 32), general debilitated condition Recommendations BONNIE: -- Continue NS @ 50 ml/hr -- Monitor metabolic profile daily in AM CKD: -- Baseline creatinine 3.4 -- Medications currently appropriately dosed for renal function Anemia -- Epogen [id number] x 1 dose ID: -- Appreciate ID consult -- Urine culture pending
[2016-10-14] MEDS: SODIUM CHLORIDE 0.45% 1000ML 1,000 ML IV SCH (12:54)
[2016-10-14] MEDS: FEBUXOSTAT 40 MG TAB PO SCH (12:55)
[2016-10-14] MEDS ORDERED: EPOETIN ALFA 10,000 UNITS/ML VIAL SQ ONE (13:30)
--- NOTE | 2016-10-14 14:38 | Pharmacy Progress Note ---
Pharmacy Antibiotic Prog Note Date of Service Oct 14, 2016. Subjective The patient is currently receiving vancomycin dosed based upon levels and azactam 250 mg iv q 8 hrs for recurrent UTI The patient is currently on day #2 of IV therapy. Objective Height (Feet): 5 Height (Inches): 4.00 Weight (Kilograms): 65.900 Levels: Item Value Date Time Random Vancomycin Level 17.6 mcg/ml 10/14/16 0524 Lab Results (24hrs): Laboratory Tests Test 10/14/16 05:24 BUN/Creatinine Ratio 16.8 Blood Urea Nitrogen 86 mg/dl Creatinine 5.10 mg/dl White Blood Count 6.84 K/uL Red Blood Count 2.94 M/uL Hemoglobin 9.1 g/dL Hematocrit 29.2 % Mean Corpuscular Volume 99.3 fL Mean Corpuscular Hemoglobin 31.0 pg Mean Corpuscular Hemoglobin Concent 31.2 g/dl Platelet Count 125 K/uL Mean Platelet Volume 9.2 fL Neutrophils (%) (Auto) 65.9 % Lymphocytes (%) (Auto) 22.4 % Monocytes (%) (Auto) 3.7 % Eosinophils (%) (Auto) 3.5 % Basophils (%) (Auto) 0.4 % Neutrophils # (Auto) 4.51 K/uL Lymphocytes # (Auto) 1.53 K/uL Monocytes # (Auto) 0.25 K/uL Eosinophils # (Auto) 0.24 K/uL Basophils # (Auto) 0.03 K/uL Micro Results: Item Value Date Time Urine Culture - Preliminary Resulted 10/12/16 1621 Urine,Catheterized NO GROWTH - LESS THAN 1,000 COLONIES/... Assessment & Plan Patient on vancomycin and azactam for recurrent UTI. Prelim urine culture showing no growth thus far. ID is following the patient. Vancomycin: * Random this am was ~17 mcg/ml (goal 15-20 mcg/ml for UTI) * Scr slight improvement from 5.7 to 5.10 mg/dL today (~8 ml/min) * Will continue to dose based upon levels until renal function is stable * Will give vancomycin 750 mg (~11 mg/kg) x 1 later this evening when estimated level ~15 mcg/ml * Will order a random level tomorrow at noon to assist with further dosing Azactam: * 250 mg iv q 8 hrs (appropriate for CrCl <10 ml/min) no changes necessary Pharmacy will continue to follow and will adjust dose/frequency as necessary. Thank you
[2016-10-14 15:56] VITALS: BP 115/65; PULSE 83; TEMP 36.6; O2SAT 98
[2016-10-14] MEDS ORDERED: VANCOMYCIN INJ 750 MG in SODIUM CHLORIDE 0.9% 250ML 250 ML IV ONE (18:00)
[2016-10-14 20:15] VITALS: BP 147/67; PULSE 89; TEMP 36.6; O2SAT 99
[2016-10-14] MEDS: LACTOBACILLUS ACIDOPHILUS (FLORANEX) TAB PO SCH (21:48)
[2016-10-14] MEDS: ASPIRIN 81 MG ECTAB PO SCH (21:48)
[2016-10-14] MEDS: ATORVASTATIN 40 MG TAB PO SCH (21:49)
[2016-10-14] MEDS: CLOPIDOGREL BISULFATE 75 MG TAB PO SCH (21:49)
[2016-10-15] VITALS: BP 135/67; PULSE 86; TEMP 37; O2SAT 97
[2016-10-15 04:05] VITALS: BP 134/56; PULSE 80; TEMP 37; O2SAT 98
[2016-10-15] MEDS: SODIUM CHLORIDE 0.45% 1000ML 1,000 ML IV SCH (05:50)
[2016-10-15] MEDS: AZTREONAM IV 250 MG in DEXTROSE 5% 100ML 100 ML IV SCH ×3 (05:50→21:07)
[2016-10-15 06:37] LABS: MEAN CELL VOLUME 98.8 fL (80-100); MEAN CORPUSCULAR HEMOGLOBIN 32.4 pg (25-34); MEAN CORPUSCULAR HGB CONC 32.8 g/dl (32-36); MEAN PLATELET VOLUME 9.1 fL (7.4-10.4); PLATELET COUNT 105 K/uL (130-400); RED BLOOD COUNT 2.53 M/uL (4.2-5.4); WHITE BLOOD COUNT 5.36 K/uL (4.8-10.8)
[2016-10-15 07:18] LABS: BUN/CREATININE RATIO 15.8 (10-20); CREATININE 4.9 mg/dl (0.60-1.20); POTASSIUM 4.7 mmol/L (3.5-5.1)
[2016-10-15 07:58] VITALS: BP 142/77; PULSE 79; TEMP 37.1; O2SAT 98
[2016-10-15] MEDS: RASPBERRY SYRUP 5 ML UDP PO SCH (08:21)
[2016-10-15] MEDS: VANCOMYCIN HCL 125 MG/2.5ML SOLN PO SCH (08:21)
[2016-10-15] MEDS: SODIUM BICARBONATE 650 MG TAB PO SCH (08:22)
[2016-10-15] MEDS: CARVEDILOL 3.125 MG TAB PO SCH ×2 (08:22→21:09)
[2016-10-15] MEDS: PANTOprazole SOD 40 MG TAB PO SCH (08:22)
[2016-10-15] MEDS: LOTEPREDNOL ETABONATE 0.5% OPB SCH (08:24)
[2016-10-15] MEDS: HEPARIN SOD 5000 UNIT/0.5 ML CARP SQ SCH ×2 (08:26→21:53)
[2016-10-15] MEDS: NYSTATIN POWDER 15GM BTL EXT SCH ×2 (08:26→21:09)
--- NOTE | 2016-10-15 09:15 | Nephrology Progress Note ---
Nephrology Progress Note Date of Service October 15, 2016. Chief Complaint BONNIE/CKD Subjective No acute events overnight. No fevers or chills. Tiana feels well this morning. Her hopes that she can be discharged home tomorrow. Appetite is improving. Voiding urine without difficulty. Denies pain. No GI symptoms. Denies any melena or hematochezia. Review of Systems A complete review of systems was performed. Pertinent positives are noted above. All other systems are negative. Vital Signs Last 8 Hrs Date Time Temp Pulse Resp B/P Pulse Ox O2 Delivery O2 Flow Rate FiO2 10/15/16 07:58 37.1 79 20 142/77 98 Nasal Cannula 2.0 10/15/16 04:05 37.0 80 20 134/56 98 Nasal Cannula 2.0 10/15/16 04:00 Nasal Cannula 2.0 I & O 24-Hour Column 10/15/16 08:00 Intake Total 1863 ml Balance 1863 ml Last Recorded Weight Weight (Kilograms): 68.900 Physical Exam General Appearance: no apparent distress, + pertinent finding (resting comfortably in bed) Head: normocephalic, atraumatic Eyes: normal inspection, sclerae normal ENT: normal ENT inspection, pharynx normal Neck: supple, no JVD Respiratory/Chest: no respiratory distress, no accessory muscle use, + pertinent finding (patient deferred auscultation) Cardiovascular: + pertinent finding (patient refused ascultation) Abdomen/GI: non tender, soft Extremities/Musculoskelatal: normal inspection, no pedal edema, + pertinent finding (trace dependent edema) Neurologic/Psych: alert, normal mood/affect Family History Diabetes mellitus Other cardiovascular diseases Stroke Social History Smoking Status: Never smoker Smokeless Tobacco Use: No Alcohol Use: none Drug Use: none Marital Status: Housing Status: lives with significant other (with home health services) 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 Laboratory Results Past 24 Hours 10/15/16 06:00 10/15/16 06:00 Test 10/15/16 06:00 Red Blood Count 2.53 M/uL (4.2-5.4) Mean Corpuscular Volume 98.8 fL (80-100) Mean Corpuscular Hemoglobin 32.4 pg (25-34) Mean Corpuscular Hemoglobin Concent 32.8 g/dl (32-36) RDW Standard Deviation 58.1 fL (36.4-46.3) RDW Coefficient of Variation 16.0 % (11.5-14.5) Mean Platelet Volume 9.1 fL (7.4-10.4) Anion Gap 12.0 mmol/L (3-11) Est Creatinine Clear Calc Drug Dose 8.3 ml/min Estimated GFR () 8.8 Estimated GFR (Non- 7.6 BUN/Creatinine Ratio 15.8 (10-20) Calcium Level 8.0 mg/dl (8.5-10.1) Allergies Coded Allergies: Sulfa Antibiotics (Verified Allergy, Intermediate, BODY SWELLING,NAUSEA AND VOMITNG, 10/12/16) Penicillins (Verified Allergy, Unknown, Tolerates Primaxin, does NOT tolerate ZOSYN, 10/13/16) PER PCP RECORDS Medications Current Inpatient Medications Medications (Trade) Dose Ordered Sig/Helder Route Start Time Stop Time Status Last Admin Dose Admin Heparin Sodium (Porcine) (Heparin Sq 5000 Unit/0.5ml) 5,000 unit Q12 SQ 10/12/16 21:00 11/11/16 20:59 10/15/16 08:26 5,000 UNIT Acetaminophen (Tylenol Tab) 650 mg Q4H PRN PO 10/12/16 19:15 11/11/16 19:14 Al Hydrox/Mg Hydrox/Simethicone (Maalox Max Susp) 15 ml Q4H PRN PO 10/12/16 19:15 11/11/16 19:14 Magnesium Hydroxide (Milk Of Magnesia Susp) 30 ml Q12H PRN PO 10/12/16 19:15 11/11/16 19:14 Ondansetron HCl (Zofran Inj) 4 mg Q6H PRN IV 10/12/16 19:15 11/11/16 19:14 10/13/16 16:15 4 MG Polyethylene (Miralax Powder Packet) 17 gm DAILY PRN PO 10/12/16 19:15 11/11/16 19:14 Aspirin (Ecotrin Tab) 81 mg QPM PO 10/12/16 21:00 11/11/16 20:59 10/14/16 21:48 81 MG Atorvastatin Calcium (Lipitor Tab) 80 mg QPM PO 10/12/16 21:00 11/11/16 20:59 Future hold 10/14/16 21:49 80 MG Clopidogrel Bisulfate (plAVix TAB) 75 mg QPM PO 10/12/16 21:00 11/11/16 20:59 10/14/16 21:49 75 MG Nystatin (Mycostatin Powder) 1 appln BID EXT 10/12/16 21:00 11/11/16 20:59 10/15/16 08:26 1 APPLN Pantoprazole Sodium (Protonix Tab) 40 mg QAM PO 10/13/16 09:00 11/12/16 08:59 10/15/16 08:22 40 MG Sodium Bicarbonate (Sodium Bicarbonate Tab) 650 mg QAM PO 10/13/16 09:00 11/12/16 08:59 10/15/16 08:22 650 MG Vancomycin HCl (Vancomycin Oral Soln) 125 mg QAM PO 10/13/16 09:00 11/12/16 08:59 10/15/16 08:21 125 MG Febuxostat (Uloric) 40 mg DAILY@1200 PO 10/13/16 12:00 11/12/16 11:59 10/14/16 12:55 40 MG Lactobacillus Acidophilus (Floranex Tab) 1 tab QPM PO 10/12/16 21:00 11/11/16 20:59 10/14/16 21:48 1 TAB Raspberry (Raspberry Syrup 5ml Cup) 5 ml QAM PO 10/13/16 09:00 10/27/16 08:59 10/15/16 08:21 5 ML Loteprednol Etabonate (Lotemax 0.5%) 1 drops QAM OPB 10/13/16 09:00 11/12/16 08:59 10/15/16 08:24 1 DROPS Vancomycin HCl (Consult) 1 ea UD PRN N/A 10/13/16 13:15 11/12/16 13:14 Aztreonam 1 ea 1 ea UD PRN N/A 10/13/16 21:00 11/12/16 20:59 Aztreonam/Dextrose (Azactam IV/D5 100ml) 102.5 ml @ 110 mls/hr Q8H IV 10/13/16 22:00 10/23/16 21:59 10/15/16 05:50 110 MLS/HR Carvedilol (Coreg Tab) 3.125 mg BID PO 10/14/16 09:00 11/13/16 08:59 10/15/16 08:22 3.125 MG Impression (1) 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 (2) Acute kidney injury (3) CKD (chronic kidney disease) stage 5, GFR less than 15 ml/min (4) Hydronephrosis Mrs. Chase hypotension and mental status changes. Clinical presentation consistent with recurrent UTI. Cultures without growth. She has a recent similar admission with cultures growing Klebsiella UTI as well as prior E coli UTI. Current admission complicated by acute on chronic kidney injury. She has chronic bladder inflammation obstructing her ureters. She has had bilateral ureteral stents placed and these were changed on 07/02. She has advanced CKD but has refused hemodialysis. She refused to consider PCN tubes in the past. PMH - CKD stage V (ESRD - Baseline creatinine 3.0 w/ EGFR 13 cc/minute. Patient has indicated that she does not want HD if her kidneys fail. 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 difficile colitis, ICM w/ LVEF 25%, moderate MR, pulmonary HTN and moderate TR, AICD placement, hypercholesterolemia, chronic respiratory failure requiring ATC 02, obesity (BMI 32), general debilitated condition Recommendations BONNIE: -- Stop NSS -- Start HCO3 infusion at 50 ml/hr -- Monitor metabolic profile daily in AM CKD: -- Baseline creatinine 3.4 -- Medications currently appropriately dosed for renal function -- Continue HCO3 replacement for metabolic acidosis Hypertension: -- Blood pressure appropriate on carvedilol (dose reduced from home dose due to recent hypotension) Anemia -- Epogen 76654 x 1 dose -- No reported evidence of GI blood loss -- Continue to monitor -- Iron studies appropriate 09/23/16 ID: -- Appreciate ID consult -- Urine culture negative
[2016-10-15] MEDS: SODIUM BICARBONATE 8.4% INJ 150 MEQ in STERILE WATER 1000 ML 1,000 ML IV SCH (09:42)
[2016-10-15] MEDS: FEBUXOSTAT 40 MG TAB PO SCH (11:27)
[2016-10-15 11:58] VITALS: BP 137/63; PULSE 83; TEMP 36.7; O2SAT 97
[2016-10-15 15:29] VITALS: BP 140/70; PULSE 80; TEMP 36.7; O2SAT 98
--- NOTE | 2016-10-15 16:20 | Progress Note ---
Subjective Date of Service: October 15, 2016. Subjective Key looks improved almost baseline, unfortunately urine cultures did not grow organism to guide our treatment but her clinical progress did improve significantly with antibiotics Problem List Medical Problems: (1) Acute on chronic kidney failure Status: Acute (2) Acute renal failure Status: Acute (3) BONNIE (acute kidney injury) Status: Acute (4) Altered mental status Status: Acute (5) Altered mental status Status: Acute (6) ARF (acute renal failure) Status: Acute (7) CRD (chronic renal disease) Status: Acute (8) Dehydration Status: Acute (9) Dehydration Status: Acute (10) Fever Status: Acute (11) Hyperkalemia Status: Acute (12) Hyperkalemia Status: Acute (13) Hyperkalemia Status: Acute (14) Hypomagnesemia Status: Acute (15) PICC (peripherally inserted central catheter) in place Status: Acute (16) Pneumonia Status: Acute (17) Renal failure Status: Acute (18) Renal insufficiency Status: Acute (19) Renal insufficiency Status: Acute (20) Sepsis Status: Acute (21) Sepsis Status: Acute (22) Uremia Status: Acute (23) UTI (urinary tract infection) Status: Acute (24) UTI (urinary tract infection) Status: Acute (25) UTI (urinary tract infection) Status: Acute (26) Weakness Status: Acute (27) Weakness Status: Acute (28) Weakness Status: Acute (29) Weakness Status: Acute (30) Weakness Status: Acute Review of Systems Constitutional: + weakness, No chills, No fatigue, No fever Respiratory: No cough, No shortness of breath Cardiac: No chest pain, No edema Abdomen: No diarrhea, No nausea, No pain, No vomiting Female : No dysuria, No urinary frequency Psychiatric: No anhedonism, No depression symptoms Objective Vital Signs Date Time Temp Pulse Resp B/P Pulse Ox O2 Delivery O2 Flow Rate FiO2 10/15/16 04:05 37.0 80 20 134/56 98 Nasal Cannula 2.0 10/15/16 04:00 Nasal Cannula 2.0 10/15/16 00:02 Nasal Cannula 2.0 10/15/16 00:00 37.0 86 24 135/67 97 Nasal Cannula 2.0 10/14/16 20:15 36.6 89 24 147/67 99 Nasal Cannula 2.0 10/14/16 20:00 Nasal Cannula 2.0 10/14/16 16:00 Nasal Cannula 2.0 10/14/16 15:56 36.6 83 20 115/65 98 Nasal Cannula 2.0 10/14/16 12:14 36.7 83 20 112/53 100 Nasal Cannula 2.0 10/14/16 12:00 Nasal Cannula 2.0 10/14/16 08:10 36.9 93 18 128/71 98 Nasal Cannula 2.0 10/14/16 08:00 Nasal Cannula 2.0 Physical Exam General Appearance: WD/WN, + mild distress Neck: supple, no JVD Respiratory/Chest: chest non-tender, lungs clear, normal breath sounds Cardiovascular: regular rate, rhythm, no JVD Abdomen: normal bowel sounds, non tender, soft Extremities: no pedal edema, no calf tenderness Laboratory Results Last 24 Hours Test 10/15/16 06:00 White Blood Count 5.36 K/uL Red Blood Count 2.53 M/uL Hemoglobin 8.2 g/dL Hematocrit 25.0 % Mean Corpuscular Volume 98.8 fL Mean Corpuscular Hemoglobin 32.4 pg Mean Corpuscular Hemoglobin Concent 32.8 g/dl RDW Standard Deviation 58.1 fL RDW Coefficient of Variation 16.0 % Platelet Count 105 K/uL Mean Platelet Volume 9.1 fL Sodium Level 146 mmol/L Potassium Level 4.7 mmol/L Chloride Level 114 mmol/L Carbon Dioxide Level 20 mmol/L Anion Gap 12.0 mmol/L Blood Urea Nitrogen 78 mg/dl Creatinine 4.90 mg/dl Est Creatinine Clear Calc Drug Dose 8.3 ml/min Estimated GFR () 8.8 Estimated GFR (Non- 7.6 BUN/Creatinine Ratio 15.8 Random Glucose 79 mg/dl Calcium Level 8.0 mg/dl Assessment and Plan 81 F with Sirs. acute renal failure and UTI associated with ureteral stents POA Hypotension decreased po intake/ dehydration, UTI suspected clinically althought negative culture, volume resuscitated Recurrent UTI- UA + LE and pyuria. likely suppressed culture as just finished Omnicef 14-day course for E coli chronic bilateral stents, ID for abx guidance, h/o c diff from chronic suppressive abx therapy - Vanco/Aztreonam for now, discussed percutaneous nephrostomy tubes in place of ureteral stents given recurrence of infections, refused percutaneous nephrostomy tubes saying she would not survive the procedure, I tried to reason otherwise, he still refused BONNIE on CKD- non-oliguric - hydronephrosis stable, follow with elevated sodium Anemia of chronic disease, epo 26574 x1 dose Chronic systolic CHF - h/o ischemic cardiomyopathy, CAD - holding coreg for now, asa/plavix/statin dvt ppx hsq
[2016-10-15 19:53] VITALS: BP 148/68; PULSE 84; TEMP 36.9; O2SAT 99
--- NOTE | 2016-10-15 20:38 | Infectious Disease Progress Nt ---
Progress Note Date of Service October 15, 2016. Subjective Pt evaluation today including: conversation w/ patient, physical exam, chart review, lab review, review of studies, conversation w/ trial consultant, review of inpatient medication list Patient offers no new specific complaints today. Mental status about a baseline. No fever. Urine culture room remains negative. All Other Systems: Reviewed and Negative Medications Current Inpatient Medications Medications (Trade) Dose Ordered Sig/Helder Route Start Time Stop Time Status Last Admin Dose Admin Heparin Sodium (Porcine) (Heparin Sq 5000 Unit/0.5ml) 5,000 unit Q12 SQ 10/12/16 21:00 11/11/16 20:59 10/15/16 08:26 5,000 UNIT Acetaminophen (Tylenol Tab) 650 mg Q4H PRN PO 10/12/16 19:15 11/11/16 19:14 Al Hydrox/Mg Hydrox/Simethicone (Maalox Max Susp) 15 ml Q4H PRN PO 10/12/16 19:15 11/11/16 19:14 Magnesium Hydroxide (Milk Of Magnesia Susp) 30 ml Q12H PRN PO 10/12/16 19:15 11/11/16 19:14 Ondansetron HCl (Zofran Inj) 4 mg Q6H PRN IV 10/12/16 19:15 11/11/16 19:14 10/13/16 16:15 4 MG Polyethylene (Miralax Powder Packet) 17 gm DAILY PRN PO 10/12/16 19:15 11/11/16 19:14 Aspirin (Ecotrin Tab) 81 mg QPM PO 10/12/16 21:00 11/11/16 20:59 10/14/16 21:48 81 MG Atorvastatin Calcium (Lipitor Tab) 80 mg QPM PO 10/12/16 21:00 11/11/16 20:59 Future hold 10/14/16 21:49 80 MG Clopidogrel Bisulfate (plAVix TAB) 75 mg QPM PO 10/12/16 21:00 11/11/16 20:59 10/14/16 21:49 75 MG Nystatin (Mycostatin Powder) 1 appln BID EXT 10/12/16 21:00 11/11/16 20:59 10/15/16 08:26 1 APPLN Pantoprazole Sodium (Protonix Tab) 40 mg QAM PO 10/13/16 09:00 11/12/16 08:59 10/15/16 08:22 40 MG Sodium Bicarbonate (Sodium Bicarbonate Tab) 650 mg QAM PO 10/13/16 09:00 11/12/16 08:59 10/15/16 08:22 650 MG Vancomycin HCl (Vancomycin Oral Soln) 125 mg QAM PO 10/13/16 09:00 11/12/16 08:59 10/15/16 08:21 125 MG Febuxostat (Uloric) 40 mg DAILY@1200 PO 10/13/16 12:00 11/12/16 11:59 10/15/16 11:27 40 MG Lactobacillus Acidophilus (Floranex Tab) 1 tab QPM PO 10/12/16 21:00 11/11/16 20:59 10/14/16 21:48 1 TAB Raspberry (Raspberry Syrup 5ml Cup) 5 ml QAM PO 10/13/16 09:00 10/27/16 08:59 10/15/16 08:21 5 ML Loteprednol Etabonate (Lotemax 0.5%) 1 drops QAM OPB 10/13/16 09:00 11/12/16 08:59 10/15/16 08:24 1 DROPS Aztreonam 1 ea 1 ea UD PRN N/A 10/13/16 21:00 11/12/16 20:59 Aztreonam/Dextrose (Azactam IV/D5 100ml) 102.5 ml @ 110 mls/hr Q8H IV 10/13/16 22:00 10/23/16 21:59 10/15/16 13:46 110 MLS/HR Carvedilol 3.125 mg 3.125 mg BID PO 10/14/16 09:00 11/13/16 08:59 10/15/16 08:22 3.125 MG Sodium Bicarbonate/ Sterile Water (Sodium Bicarbonate 8.4% Inj/Sterile Water 1000 ml) 1,150 ml @ 50 mls/hr Q23H IV 10/15/16 09:00 11/14/16 08:59 10/15/16 09:42 50 MLS/HR Objective Vital Signs Date Time Temp Pulse Resp B/P Pulse Ox O2 Delivery O2 Flow Rate FiO2 10/15/16 19:53 36.9 84 24 148/68 99 Room Air 10/15/16 16:00 Nasal Cannula 2.0 10/15/16 15:29 36.7 80 24 140/70 98 Nasal Cannula 2.0 10/15/16 12:00 Nasal Cannula 2.0 10/15/16 11:58 36.7 83 20 137/63 97 Nasal Cannula 2.0 10/15/16 08:00 Nasal Cannula 2.0 10/15/16 07:58 37.1 79 20 142/77 98 Nasal Cannula 2.0 10/15/16 04:05 37.0 80 20 134/56 98 Nasal Cannula 2.0 10/15/16 04:00 Nasal Cannula 2.0 10/15/16 00:02 Nasal Cannula 2.0 10/15/16 00:00 37.0 86 24 135/67 97 Nasal Cannula 2.0 Physical Exam General Appearance: WD/WN, no apparent distress Eyes: normal inspection, EOMI, sclerae normal ENT: normal ENT inspection, pharynx normal Neck: supple, no adenopathy, trachea midline Respiratory/Chest: lungs clear, normal breath sounds, no respiratory distress Cardiovascular: regular rate, rhythm, no gallop, no murmur Abdomen: normal bowel sounds, non tender, soft, no organomegaly Extremities: non-tender, no calf tenderness Neurologic/Psychiatric: alert, oriented x 3 Skin: normal color, warm/dry, no rash Lymphatic: no adenopathy Laboratory Results RUN DATE: 10/15/16 [facility] LAB PAGE 1 RUN TIME: 07 Specimen Inquiry PATIENT: ELIEL MIR LOC: [facility] U # : [id number] AGE/SX: 81/F ROOM: E212 REG : 10/12/[address]: Yolis France MD : [id number] BED: 1 DIS : STATUS: ADM IN TLOC: SPEC #: [id number] [place]: 10/12/16 STATUS: COMP REQ #: [id number] RECD: 10/13/[address]: Elizabeth Ruggiero, AZALIA SOURCE: URINE CATH ENTR: 10/13/16 [facility] [address]: José Luis Griffin MD SPDESC: Thai Corral M.D. Stevens, Jessica A. , DO ORDERED: CULTURE UR CATH COMMENTS: Comments to Industrial Technologist please use specimen from UA draw Has Specimen Been Obtained/Collected? Y Procedure Result Verified Site URINE CULTURE Final 10/15/16 NO GROWTH - LESS THAN 1,000 COLONIES/ML Last 24 Hours Test 10/15/16 06:00 10/15/16 11:56 White Blood Count 5.36 K/uL Red Blood Count 2.53 M/uL Hemoglobin 8.2 g/dL Hematocrit 25.0 % Mean Corpuscular Volume 98.8 fL Mean Corpuscular Hemoglobin 32.4 pg Mean Corpuscular Hemoglobin Concent 32.8 g/dl RDW Standard Deviation 58.1 fL RDW Coefficient of Variation 16.0 % Platelet Count 105 K/uL Mean Platelet Volume 9.1 fL Sodium Level 146 mmol/L Potassium Level 4.7 mmol/L Chloride Level 114 mmol/L Carbon Dioxide Level 20 mmol/L Anion Gap 12.0 mmol/L Blood Urea Nitrogen 78 mg/dl Creatinine 4.90 mg/dl Est Creatinine Clear Calc Drug Dose 8.3 ml/min Estimated GFR () 8.8 Estimated GFR (Non- 7.6 BUN/Creatinine Ratio 15.8 Random Glucose 79 mg/dl Calcium Level 8.0 mg/dl Random Vancomycin Level 20.5 mcg/ml CHEST ONE VIEW PORTABLE CLINICAL HISTORY: Pulmonary edema. Effusions. COMPARISON STUDY: Chest radiograph October 12, 2016. FINDINGS: A right PICC and left ablative pacer/AICD remain in place. There is no pneumothorax. There are suspected trace bilateral pleural effusions. Cardiomediastinal silhouette is stable. There is pulmonary vascular congestion without overt edema. This is improved. IMPRESSION: 1. Interval improvement in pulmonary vascular congestion. 2. Trace bilateral pleural effusions. Assessment and Plan 81-year-old female with history of recurrent UTIs associated with encephalopathy, now presents with 2 days of hypertension with possibility of recurrent urinary tract infection. However, despite abnormal urinalysis, urine culture negative. I have discontinued vancomycin today, would consider discontinuation of aztreonam tomorrow if cultures remain negative. Patient has been tried on rotating antibiotics in the past, and has not tolerated well. Would consider use of methenamine as possible suppressive agent. Will discuss with all involved.
[2016-10-15] MEDS: LACTOBACILLUS ACIDOPHILUS (FLORANEX) TAB PO SCH (21:07)
[2016-10-15] MEDS: CLOPIDOGREL BISULFATE 75 MG TAB PO SCH (21:07)
[2016-10-15] MEDS: ATORVASTATIN 40 MG TAB PO SCH (21:08)
[2016-10-15] MEDS: ASPIRIN 81 MG ECTAB PO SCH (21:09)
[2016-10-16] VITALS: BP 147/75; PULSE 84; TEMP 36.9; O2SAT 98
[2016-10-16 04:25] VITALS: BP 155/79; PULSE 83; TEMP 37; O2SAT 98
[2016-10-16] MEDS: AZTREONAM IV 250 MG in DEXTROSE 5% 100ML 100 ML IV SCH (05:48)
[2016-10-16 06:47] LABS: CREATININE 4.1 mg/dl (0.60-1.20)
[2016-10-16] MEDS: ONDANSETRON INJ 2 MG/ML 2 ML VIAL IV PRN (07:28)
--- NOTE | 2016-10-16 07:47 | Progress Note ---
Subjective Date of Service: October 16, 2016. Problem List Medical Problems: (1) Acute on chronic kidney failure Status: Acute (2) Acute renal failure Status: Acute (3) BONNIE (acute kidney injury) Status: Acute (4) Altered mental status Status: Acute (5) Altered mental status Status: Acute (6) ARF (acute renal failure) Status: Acute (7) CRD (chronic renal disease) Status: Acute (8) Dehydration Status: Acute (9) Dehydration Status: Acute (10) Fever Status: Acute (11) Hyperkalemia Status: Acute (12) Hyperkalemia Status: Acute (13) Hyperkalemia Status: Acute (14) Hypomagnesemia Status: Acute (15) PICC (peripherally inserted central catheter) in place Status: Acute (16) Pneumonia Status: Acute (17) Renal failure Status: Acute (18) Renal insufficiency Status: Acute (19) Renal insufficiency Status: Acute (20) Sepsis Status: Acute (21) Sepsis Status: Acute (22) Uremia Status: Acute (23) UTI (urinary tract infection) Status: Acute (24) UTI (urinary tract infection) Status: Acute (25) UTI (urinary tract infection) Status: Acute (26) Weakness Status: Acute (27) Weakness Status: Acute (28) Weakness Status: Acute (29) Weakness Status: Acute (30) Weakness Status: Acute Objective Vital Signs Date Time Temp Pulse Resp B/P Pulse Ox O2 Delivery O2 Flow Rate FiO2 10/16/16 04:25 37.0 83 20 155/79 98 Nasal Cannula 2.0 10/16/16 04:00 Nasal Cannula 2.0 10/16/16 00:00 Nasal Cannula 2.0 10/16/16 00:00 36.9 84 23 147/75 98 Nasal Cannula 2.0 10/15/16 20:00 Nasal Cannula 2.0 10/15/16 19:53 36.9 84 24 148/68 99 Room Air 10/15/16 16:00 Nasal Cannula 2.0 10/15/16 15:29 36.7 80 24 140/70 98 Nasal Cannula 2.0 10/15/16 12:00 Nasal Cannula 2.0 10/15/16 11:58 36.7 83 20 137/63 97 Nasal Cannula 2.0 10/15/16 08:00 Nasal Cannula 2.0 10/15/16 07:58 37.1 79 20 142/77 98 Nasal Cannula 2.0 Laboratory Results Last 24 Hours Test 10/15/16 11:56 10/16/16 05:47 Random Vancomycin Level 20.5 mcg/ml Creatinine 4.10 mg/dl Est Creatinine Clear Calc Drug Dose 9.8 ml/min Estimated GFR () 11.0 Estimated GFR (Non- 9.5 Assessment and Plan 81 F with Sirs. acute renal failure and clinically suspected UTI associated with ureteral stents POA Hypotension decreased po intake/ dehydration, UTI suspected clinically although negative culture, volume resuscitated Recurrent UTI- UA + LE and pyuria. likely suppressed culture as just finished Omnicef 14-day course for E coli chronic bilateral stents, ID Dr Griffin has stopped vancomycin and will stop aztreonam 10/16, consideration of methanamine for supression, h/o c diff from chronic suppressive abx therapy , discussed percutaneous nephrostomy tubes in place of ureteral stents given recurrence of infections, refused percutaneous nephrostomy tubes saying she would not survive the procedure BONNIE on CKD- non-oliguric, improving with modest ivf - hydronephrosis stable, follow with elevated sodium Anemia, epo [id number] x1 dose, hgb dropped to 8 gm range, maybe dilutional anemia on top of chronic disease Chronic systolic CHF - h/o ischemic cardiomyopathy, CAD - coreg , asa/plavix/statin dvt ppx hsq
[2016-10-16 07:48] VITALS: BP 139/70; PULSE 88; TEMP 37; O2SAT 99
[2016-10-16] MEDS: RASPBERRY SYRUP 5 ML UDP PO SCH (07:51)
[2016-10-16] MEDS: VANCOMYCIN HCL 125 MG/2.5ML SOLN PO SCH (07:51)
[2016-10-16] MEDS: PANTOprazole SOD 40 MG TAB PO SCH (07:52)
[2016-10-16] MEDS: SODIUM BICARBONATE 650 MG TAB PO SCH (07:52)
[2016-10-16] MEDS: HEPARIN SOD 5000 UNIT/0.5 ML CARP SQ SCH (07:53)
[2016-10-16] MEDS: NYSTATIN POWDER 15GM BTL EXT SCH (07:54)
[2016-10-16] MEDS: LOTEPREDNOL ETABONATE 0.5% OPB SCH (07:54)
[2016-10-16] MEDS: SODIUM BICARBONATE 8.4% INJ 150 MEQ in STERILE WATER 1000 ML 1,000 ML IV SCH (08:00)
[2016-10-16] MEDS ORDERED: CARVEDILOL 12.5 MG TAB PO SCH (09:00)
--- NOTE | 2016-10-16 09:30 | Nephrology Progress Note ---
Nephrology Progress Note Date of Service October 16, 2016. Chief Complaint BONNIE/CKD Subjective No acute events overnight. No complaints this morning. Denies fevers or chills. Overall, feels well. Appetite improved. Hopeful to go home today or tomorrow. Review of Systems A complete review of systems was performed. Pertinent positives are noted above. All other systems are negative. Vital Signs Last 8 Hrs Date Time Temp Pulse Resp B/P Pulse Ox O2 Delivery O2 Flow Rate FiO2 10/16/16 07:48 37.0 88 16 139/70 99 Nasal Cannula 2.0 10/16/16 04:25 37.0 83 20 155/79 98 Nasal Cannula 2.0 10/16/16 04:00 Nasal Cannula 2.0 I & O 24-Hour Column 10/16/16 07:59 Intake Total 1440 ml Balance 1440 ml Last Recorded Weight Weight (Kilograms): 67.100 Physical Exam General Appearance: no apparent distress, + pertinent finding (elderly) Head: normocephalic, atraumatic Eyes: normal inspection, sclerae normal ENT: normal ENT inspection, pharynx normal Neck: supple, no JVD Respiratory/Chest: + pertinent finding (patient refused) Cardiovascular: + pertinent finding (patient refused) Abdomen/GI: non tender, soft Extremities/Musculoskelatal: normal inspection, no pedal edema Neurologic/Psych: alert, normal mood/affect Family History Diabetes mellitus Other cardiovascular diseases Stroke Social History Smoking Status: Never smoker Smokeless Tobacco Use: No Alcohol Use: none Drug Use: none Marital Status: Housing Status: lives with significant other (with home health services) 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 Laboratory Results Past 24 Hours 10/16/16 05:47 Test 10/15/16 11:56 10/16/16 05:47 Random Vancomycin Level 20.5 mcg/ml Est Creatinine Clear Calc Drug Dose 9.8 ml/min Estimated GFR () 11.0 Estimated GFR (Non- 9.5 Allergies Coded Allergies: Sulfa Antibiotics (Verified Allergy, Intermediate, BODY SWELLING,NAUSEA AND VOMITNG, 10/12/16) Penicillins (Verified Allergy, Unknown, Tolerates Primaxin, does NOT tolerate ZOSYN, 10/13/16) PER PCP RECORDS Medications Current Inpatient Medications Medications (Trade) Dose Ordered Sig/Helder Route Start Time Stop Time Status Last Admin Dose Admin Heparin Sodium (Porcine) (Heparin Sq 5000 Unit/0.5ml) 5,000 unit Q12 SQ 10/12/16 21:00 11/11/16 20:59 10/16/16 07:53 5,000 UNIT Acetaminophen (Tylenol Tab) 650 mg Q4H PRN PO 10/12/16 19:15 11/11/16 19:14 Al Hydrox/Mg Hydrox/Simethicone (Maalox Max Susp) 15 ml Q4H PRN PO 10/12/16 19:15 11/11/16 19:14 Magnesium Hydroxide (Milk Of Magnesia Susp) 30 ml Q12H PRN PO 10/12/16 19:15 11/11/16 19:14 Ondansetron HCl (Zofran Inj) 4 mg Q6H PRN IV 10/12/16 19:15 11/11/16 19:14 10/16/16 07:28 4 MG Polyethylene (Miralax Powder Packet) 17 gm DAILY PRN PO 10/12/16 19:15 11/11/16 19:14 Aspirin (Ecotrin Tab) 81 mg QPM PO 10/12/16 21:00 11/11/16 20:59 10/15/16 21:09 81 MG Atorvastatin Calcium (Lipitor Tab) 80 mg QPM PO 10/12/16 21:00 11/11/16 20:59 Future hold 10/15/16 21:08 80 MG Clopidogrel Bisulfate (plAVix TAB) 75 mg QPM PO 10/12/16 21:00 11/11/16 20:59 10/15/16 21:07 75 MG Nystatin (Mycostatin Powder) 1 appln BID EXT 10/12/16 21:00 11/11/16 20:59 10/16/16 07:54 1 APPLN Pantoprazole Sodium (Protonix Tab) 40 mg QAM PO 10/13/16 09:00 11/12/16 08:59 10/16/16 07:52 40 MG Sodium Bicarbonate (Sodium Bicarbonate Tab) 650 mg QAM PO 10/13/16 09:00 11/12/16 08:59 10/16/16 07:52 650 MG Vancomycin HCl (Vancomycin Oral Soln) 125 mg QAM PO 10/13/16 09:00 11/12/16 08:59 10/16/16 07:51 125 MG Febuxostat (Uloric) 40 mg DAILY@1200 PO 10/13/16 12:00 11/12/16 11:59 10/15/16 11:27 40 MG Lactobacillus Acidophilus (Floranex Tab) 1 tab QPM PO 10/12/16 21:00 11/11/16 20:59 10/15/16 21:07 1 TAB Raspberry (Raspberry Syrup 5ml Cup) 5 ml QAM PO 10/13/16 09:00 10/27/16 08:59 10/16/16 07:51 5 ML Loteprednol Etabonate (Lotemax 0.5%) 1 drops QAM OPB 10/13/16 09:00 11/12/16 08:59 10/16/16 07:54 1 DROPS Aztreonam 1 ea 1 ea UD PRN N/A 10/13/16 21:00 11/12/16 20:59 Aztreonam 250 mg/ Dextrose 102.5 ml @ 110 mls/hr Q8H IV 10/13/16 22:00 10/23/16 21:59 10/16/16 05:48 110 MLS/HR Sodium Bicarbonate/ Sterile Water (Sodium Bicarbonate 8.4% Inj/Sterile Water 1000 ml) 1,150 ml @ 50 mls/hr Q23H IV 10/15/16 09:00 11/14/16 08:59 10/15/16 09:42 50 MLS/HR Carvedilol (Coreg Tab) 12.5 mg BID PO 10/16/16 09:00 11/15/16 08:59 10/16/16 08:51 12.5 MG Impression (1) 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 (2) Acute kidney injury (3) CKD (chronic kidney disease) stage 5, GFR less than 15 ml/min (4) Hydronephrosis Mrs. Chase hypotension and mental status changes. Clinical presentation consistent with recurrent UTI. Cultures without growth. She has a recent similar admission with cultures growing Klebsiella UTI as well as prior E coli UTI. Current admission complicated by acute on chronic kidney injury. She has chronic bladder inflammation obstructing her ureters. She has had bilateral ureteral stents placed and these were changed on 07/02. She has advanced CKD but has refused hemodialysis. She refused PCN tubes in the past. PMH - CKD stage V (ESRD - Baseline creatinine 3.0 w/ EGFR 13 cc/minute. Patient has indicated that she does not want HD if her kidneys fail. 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 difficile colitis, ICM w/ LVEF 25%, moderate MR, pulmonary HTN and moderate TR, AICD placement, hypercholesterolemia, chronic respiratory failure requiring ATC 02, obesity (BMI 32), general debilitated condition Recommendations BONNIE: -- Stop HCO3 infusion -- Monitor metabolic profile daily in AM CKD: -- Baseline creatinine 3.4 -- Medications currently appropriately dosed for renal function -- Continue HCO3 replacement for metabolic acidosis Hypertension: -- Continue to increase carvedilol to blood pressure goal Anemia -- Epogen 42086 x 1 dose 10/14/16 -- Repeat H/H this AM pending -- Iron studies appropriate 09/23/16 ID: -- Appreciate ID consult: [email or web address] for suppression
[2016-10-16 09:45] LABS: HEMATOCRIT 26.9 % (37-47); MEAN CELL VOLUME 96.4 fL (80-100); MEAN CORPUSCULAR HEMOGLOBIN 30.5 pg (25-34); MEAN CORPUSCULAR HGB CONC 31.6 g/dl (32-36); MEAN PLATELET VOLUME 9.3 fL (7.4-10.4); PLATELET COUNT 118 K/uL (130-400); RED BLOOD COUNT 2.79 M/uL (4.2-5.4); WHITE BLOOD COUNT 8.17 K/uL (4.8-10.8)
[2016-10-16 09:58] LABS: BUN/CREATININE RATIO 16.6 (10-20); CALCIUM 7.8 mg/dl (8.5-10.1); CREATININE 4.3 mg/dl (0.60-1.20); POTASSIUM 4.2 mmol/L (3.5-5.1)
[2016-10-16] MEDS ORDERED: NURSING VERBAL MED ORDER ONE (11:15)
[2016-10-16] MEDS: FEBUXOSTAT 40 MG TAB PO SCH (11:28)
[2016-10-16 11:38] VITALS: BP 125/66; PULSE 77; TEMP 36.5; O2SAT 95
[2016-10-16] MEDS ORDERED: CRANBERRY PO (12:34)
--- NOTE | 2016-10-16 12:35 | Discharge Instructions ---
Discharge Instructions Date of Service October 16, 2016. Admission Reason for Admission: Hypotension Discharge Discharge Diagnosis / Problem: encephalopathy resolved Discharge Goals Goal(s): Diagnostic testing, Therapeutic intervention Activity Recommendations Activity Limitations: resume your previous activity . Current Hospital Diet Patient's current hospital diet: Renal Diet Discharge Diet Recommended Diet: Regular Diet Pending Studies Studies pending at discharge: no Medical Emergencies . Who to Call and When: Medical Emergencies: If at any time you feel your situation is an emergency, please call 911 immediately. . Non-Emergent Contact Non-Emergency issues call your: Primary Care Provider (also may see Dr Griffin) Call Non-Emergent contact if: temperature is above 101 . . "Provider Documentation" section prepared by Oniel Naik. . VTE Core Measure Inpt VTE Proph given/why not?: Unfractionated heparin EMILY, Ebenezer Ramirez, SCD 's
[2016-10-16 13:15] VITALS: BP 125/66; PULSE 77; TEMP 36.5; O2SAT 95
--- NOTE | 2016-10-16 15:06 | Discharge Summary ---
Discharge Summary Date of Service October 16, 2016. Discharge Summary Admission Date: Oct 12, 2016 at 19:22 Discharge Date: October 16, 2016 Discharge Disposition: Home Principal Diagnosis: encephalopthy, dehydration Immunizations: Have You Had Influenza Vaccine: Yes Influenza Vaccine Date: Mar 17, 2010 History of Tetanus Vaccine?: No History of Pneumococcal: No Pneumococcal Date: Jun 06, 2011 History of Hepatitis B Vaccine: No Medication Reconciliation New Medications: [cranberry tablets] () 1 TAB PO QID, #120 6 Refills ac hs Continued Medications: Aspirin (Aspirin) 81 Mg Tab 81 MG PO QPM Atorvastatin (Lipitor) 80 Mg Tab 80 MG PO QPM Carvedilol (Carvedilol) 25 Mg Tab 25 MG PO BID Cholecalciferol (Vitamin D3) 1,000 Unit Tab 1 TAB PO DAILY for 90 Days, #90 TAB 3 Refills Clopidogrel Bisulfate (Clopidogrel) 75 Mg Tab 75 MG PO QPM WAS NOT INSTRUCTED TO HOLD Febuxostat (Uloric) 40 Mg Tab 40 MG PO NOON TAKE THIS MEDICATION DAILY WITH LUNCH Furosemide (Lasix) 20 Mg Tab 20 MG PO QAM, TAB Lorazepam (Ativan) 0.5 Mg Tab 0.5 MG PO Q6H PRN for Anxiety, TAB Loteprednol Etabonate (Lotemax) 0.5 % Gel 1 DROP OPB QAM Multiple Vitamins W/ Minerals (Centrum Silver Ultra Wome) 1 Tab Tab 1 TAB PO QAM Nystatin (Nystop) 45 Appln/15 Gm Powd 1 DOSE TOP BID Ondasetron Odt (Zofran Odt) 4 Mg Tab 4 MG PO Q6H PRN for Nausea Pantoprazole (Pantoprazole Sodium) 40 Mg Tab 40 MG PO QAM Probiotic Product (Probiotic) 1 Cap Cap 1 TAB PO QPM Sodium Bicarbonate (Sodium Bicarbonate) 650 Mg Tab 1 TAB PO QAM Vancomycin Hcl (Vancomycin) 125 Mg Cap 125 MG PO QAM Discharge Exam Review of Systems: Constitutional: No chills, No fever, No sweats Respiratory: No cough, No sputum, No wheezing Abdomen: No nausea, No pain, No vomiting Musculoskeletal: No joint pain, No muscle pain Genitourinary - Female: No dysuria, No urinary frequency Psychiatric: No anhedonism, No depression symptoms Physical Exam: General Appearance: WD/WN, + mild distress Neck: supple, no JVD Respiratory/Chest: chest non-tender, lungs clear, normal breath sounds Cardiovascular: regular rate, rhythm, no murmur Abdomen / GI: normal bowel sounds, non tender, soft Extremities: no pedal edema, normal range of motion Neurologic/Psychiatric: alert, oriented x 3 Hospital Course 81 F with Sirs. acute renal failure and clinically suspected UTI associated with ureteral stents POA Hypotension decreased po intake/ dehydration, UTI suspected clinically although negative culture, volume resuscitated and greatly improved Recurrent UTI- UA + LE and pyuria. likely suppressed culture as just finished Omnicef 14-day course for E coli chronic bilateral stents, ID Dr Griffin has stopped vancomycin 10/15 and stopped aztreonam 10/16, consideration of methanamine for supression, but contraindicated with renal failure, will use cranberry tablets instead, h/o c diff from chronic suppressive abx therapy in past, discussed percutaneous nephrostomy tubes in place of ureteral stents given recurrence of infections, refused percutaneous nephrostomy tubes saying she would not survive the procedure BONNIE on CKD- non-oliguric, improved modest ivf, reinforced need for oral intake at home - hydronephrosis stable Anemia, epo 67915 x1 dose, hgb dropped to 8 gm range, maybe dilutional anemia on top of chronic disease, will await for epo affect and follow up with renal outpt clinic Chronic systolic CHF - h/o ischemic cardiomyopathy, CAD - coreg , asa/plavix/statin dvt ppx hsq Total Time Spent: Greater than 30 minutes This includes examination of the patient, discharge planning, medication reconciliation, and communication with other providers. Discharge Instructions Please refer to the electronic Patient Visit Report (Discharge Instructions) for additional information.
[2016-11-05] MEDS ORDERED: CARV12.52 PO (08:41)
[2016-12-04] MEDS ORDERED: CPR500 PO (09:01)
[2016-12-04] MEDS ORDERED: METR-162 PO (09:01)
== END 2016-10-16 14:20 | disposition home health service (06) | DRG 682 ==
LOC: ENRESERVTM → ENRESERVDT → EDBD 15:20 → C.EDA 15:23 → C.MSICU 19:22 → EDBEDREQ 19:29 → C.2E 10-13 06:36
PROVIDERS: ADMIT Family Medicine; ATTEND Internal Medicine
DX: N17.9 Acute kidney failure, unspecified (principal); G93.40 Encephalopathy, unspecified; I50.22 Chronic systolic (congestive) heart failure; I13.2 Hypertensive heart and chronic kidney disease with heart failure and with stage 5 chronic kidney disease, or end stage renal disease; A04.7 Enterocolitis due to Clostridium difficile; J96.10 Chronic respiratory failure, unspecified whether with hypoxia or hypercapnia; E87.2 Acidosis; E78.5 Hyperlipidemia, unspecified; N18.6 End stage renal disease; M10.9 Gout, unspecified; N13.30 Unspecified hydronephrosis; I25.5 Ischemic cardiomyopathy; Z95.810 Presence of automatic (implantable) cardiac defibrillator; F41.9 Anxiety disorder, unspecified; F32.9 Major depressive disorder, single episode, unspecified; Z90.49 Acquired absence of other specified parts of digestive tract; I25.10 Atherosclerotic heart disease of native coronary artery without angina pectoris; E11.22 Type 2 diabetes mellitus with diabetic chronic kidney disease; I25.2 Old myocardial infarction; Z87.01 Personal history of pneumonia (recurrent); Z82.49 Family history of ischemic heart disease and other diseases of the circulatory system; Z83.3 Family history of diabetes mellitus; Z82.3 Family history of stroke; Z88.2 Allergy status to sulfonamides; Z88.0 Allergy status to penicillin; Z79.82 Long term (current) use of aspirin; Z79.899 Other long term (current) drug therapy; R15.9 Full incontinence of feces; R32 Unspecified urinary incontinence; N30.10 Interstitial cystitis (chronic) without hematuria; E66.9 Obesity, unspecified; Z68.32 Body mass index [BMI] 32.0-32.9, adult; E78.00 Pure hypercholesterolemia, unspecified; I27.2 Other secondary pulmonary hypertension; R53.81 Other malaise; Z94.7 Corneal transplant status; I08.1 Rheumatic disorders of both mitral and tricuspid valves; D63.8 Anemia in other chronic diseases classified elsewhere; E86.0 Dehydration

== ENCOUNTER → 2016-10-23 | Outpatient (CLI) | payer MEDICARE, OTHER ==
[~2016-10-23] MED LIST changes: +CARV12.52 PO; +COCO1OIL2 PO; +CPR500 PO; +CRAN1TAB PO; +CRANBERRY PO; +METR-162 PO
[2016-10-23 17:55] LABS: BLOOD UREA NITROGEN 68 mg/dl (7-18); BUN/CREATININE RATIO 16.2 (10-20); CALCIUM 8.2 mg/dl (8.5-10.1); CARBON DIOXIDE 23 mmol/L (21-32); CHLORIDE 112 mmol/L (98-107); GLUCOSE 131 mg/dl (70-99); POTASSIUM 5.1 mmol/L (3.5-5.1); SODIUM 143 mmol/L (136-145)
--- NOTE | 2016-11-07 12:40 | EDITING REQUIRED CODING QUERY ---
CQTREATMENT RENDERED WITHOUT A DIAGNOSIS To promote full compliance with coding requirements relating to patient care, physician participation is requested in all cases of chief digital media officer uncertainty. Please assist us with providing a diagnosis/symptom for the test(s) below: Pt has ESRD and came in with an elevated cr. A diagnosis/symptom was not documented on your Order. A valid diagnosis/symptom is required to bill all insurances. Please remember that we are unable to code a diagnosis of rule out, probable, possible, questionable, or suspected. Tests that require a diagnosis: DOS 10/23/16 PARTIAL RENAL PROFILE Provider Signature: JAS Date: _11/09/16 Thank you Mary Martínez Health Information Management Once completed, please kindly fax back to [phone] For questions please call [phone]
--- NOTE | 2016-11-28 06:03 | CODING QUERY MEDICAL NECESSITY ---
CQSUPPORTING DIAGNOSIS NEEDED A supporting diagnosis is required for the test/procedure performed on this patient in order for us to be reimbursed by the patient's insurance. Please provide a supporting diagnosis for the following test/procedure listed below next to the test name along with your signature. *If there is no additional diagnosis for this patient that would support the following test/procedure please document that below next to the test/procedure. Test(s)/Procedure(s) that require a supporting diagnosis: DOS 10/23/16 PARTIAL RENAL PROFILE QUERY WAS RETURNED WITH NO DIAGNOSIS ADDED PLEASE ADD DIAGNOSIS AND SIGNATURE THANK YOU Provider Signature: Date: Thank you Mary Martínez Health Information Management Once completed, please kindly fax back to [phone] For questions please call [phone]
== END | disposition home or self-care (01) ==
LOC: C.LABBC 12:20
PROVIDERS: ATTEND Family Medicine
DX: N18.6 End stage renal disease (principal); R79.89 Other specified abnormal findings of blood chemistry

== ENCOUNTER 2016-11-05 07:57 | Inpatient (IN) | payer MEDICARE, OTHER ==
[~2016-11-05] VITALS: Ht 162.6 cm; Wt 62.2 kg
[~2016-11-05 07:57] MED LIST changes: -CARV12.52 PO; -COCO1OIL2 PO; -CPR500 PO; -CRAN1TAB PO; -METR-162 PO
[2016-11-05] MEDS ORDERED: SODIUM CHLORIDE 0.9% 500ML 500 ML IV STA ×2 (08:32→09:44)
--- NOTE | 2016-11-05 08:34 | EMERGENCY ROOM VISIT NOTE ---
History Report prepared by Harrison: Lucy Hagen Under the Supervision of: Dr. Mio Whitaker M.D. First contact with patient: 08:09 Chief Complaint: WEAKNESS Stated Complaint: GENERALIZED WEAKNESS History of Present Illness The patient is an 81 year old female who presents to the Emergency Room with complaints of increasing generalized weakness over the past week. Per the patient's , the patient has visited the emergency department six times since June 17. He states that the patient has a history of multiple UTIs and occasional hypotension. The patient's states that over the past week, the patient has been hypotensive, and states that he has decreased the patient's dosage of her Coreg. He states that the patient's strength continued to decrease. The patient's additionally notes that the patient has had a decrease in appetite and has mainly stayed in bed. He additionally notes that the patient could not ambulate today due to her generalized weakness. Source of History: patient, spouse/significant other () Onset: past week Position: other (global) Quality: other (generalized weakness) Timing: other (increasing) Note: Associated Symptoms: decrease in appetite, difficulty ambulating, strength decreasing Review of Systems See HPI for pertinent positives & negatives. A total of 10 systems reviewed and were otherwise negative. Past Medical & Surgical Medical Problems: (1) Acute hypernatremia (2) Acute kidney injury (3) Acute on chronic renal failure (4) Acute renal failure superimposed on stage 4 chronic kidney disease (5) Acute urinary tract infection (6) Anemia (7) Benign hypertension (8) Cardiac catheterization (9) CHF (congestive heart failure) (10) CHF (congestive heart failure) (11) Cholecystectomy (12) Chronic kidney disease (13) CKD (chronic kidney disease) stage 5, GFR less than 15 ml/min (14) Coronary artery disease (15) Dehydration (16) Diabetes (17) Hyperkalemia (18) Hypotension (19) Ischemic cardiomyopathy (20) Metabolic acidosis (21) Metabolic acidosis with increased anion gap and reduced excretion of inorganic acids (22) Myocardial infarction (23) Pneumonia (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 (25) Recurrent UTI (26) Secondary hyperparathyroidism of renal origin (27) Sepsis (28) Sepsis due to Klebsiella (29) sepsis recurrent UTI BONNIE on ckd (30) Systolic CHF (31) UTI (urinary tract infection) (32) UTI (urinary tract infection) (33) UTI (urinary tract infection) (34) UTI, altered mental status (35) Weakness Surgical Problems: (1) History of cholecystectomy (2) History of ureter stent Family History Diabetes mellitus Other cardiovascular diseases Stroke Social History Smoking Status: Never Smoker Alcohol Use: none Drug Use: none Marital Status: Housing Status: lives with significant other Occupation Status: retired Current/Historical Medications Scheduled Aspirin (Aspirin), 81 MG PO QPM Atorvastatin (Lipitor), 80 MG PO QPM Carvedilol (Coreg), 12.5 MG PO BID Cholecalciferol (Vitamin D3), 1 TAB PO DAILY Clopidogrel Bisulfate (Clopidogrel), 75 MG PO QPM Febuxostat (Uloric), 40 MG PO NOON Loteprednol Etabonate (Lotemax), 1 DROP OPB QAM Multiple Vitamins W/ Minerals (Centrum Silver Ultra [place]), 1 TAB PO QAM Nystatin (Nystop), 1 DOSE TOP BID Pantoprazole (Pantoprazole Sodium), 40 MG PO QAM Probiotic Product (Probiotic), 1 TAB PO QPM Sodium Bicarbonate (Sodium Bicarbonate), 1 TAB PO QAM Vancomycin Hcl (Vancomycin), 125 MG PO QAM [cranberry tablets], 1 TAB PO QID Scheduled PRN Lorazepam (Ativan), 0.5 MG PO Q6H PRN for Anxiety Ondasetron Odt (Zofran Odt), 4 MG PO Q6H PRN for Nausea Allergies Coded Allergies: Sulfa Antibiotics (Verified Allergy, Intermediate, BODY SWELLING,NAUSEA AND VOMITNG, 11/05/16) Penicillins (Verified Allergy, Unknown, Tolerates Primaxin, does NOT tolerate ZOSYN, 11/05/16) PER PCP RECORDS Physical Exam Vital Signs Date Time Temp Pulse Resp B/P Pulse Ox O2 Delivery O2 Flow Rate FiO2 11/05/16 10:09 77 22 118/64 100 Nasal Cannula 2.0 11/05/16 09:48 98 Nasal Cannula 2.0 11/05/16 08:23 98 Nasal Cannula 2.0 11/05/16 08:05 88 11/05/16 08:04 94 Room Air 11/05/16 08:04 36.8 89 18 119/71 95 Room Air Physical Exam GENERAL: Patient is a healthy-appearing well-nourished HEAD: Normocephalic atraumatic EYES: Ocular movements intact pupils equal and react to light OROPHARYNX mucous membranes are moist no exudates present no erythema or edema present NECK: Supple no nuchal rigidity CHEST: Good equal expansion LUNGS: Clear and equal to auscultation CARDIAC: Normal S1 and S2 ABDOMEN: Soft nontender no guarding BACK: No CVA tenderness EXTREMITIES: No pain upon palpation normal muscle strength in all groups no clubbing cyanosis or edema NEURO: Patient does not know who the president is, confused to date, day of week , as well as month. Medical Decision & Procedures ER Provider Diagnostic Interpretation: Radiology results as stated below per my review and radiologist interpretation: CHEST ONE VIEW PORTABLE CLINICAL HISTORY: Generalized weakness. COMPARISON STUDY: Chest radiograph October 14, 2016. FINDINGS: A right PICC and single lead left subclavian pacer/AICD are in place. Cardiomegaly is unchanged. There is no evidence of pulmonary edema. There is no consolidation to suggest pneumonia. There are trace bilateral pleural effusions. These are unchanged. IMPRESSION: 1. No change in trace bilateral pleural effusions. 2. Stable cardiomegaly without evidence of pulmonary edema. Electronically signed by: Mckinley Winkler M.D. 11/05/2016 8:45 AM Dictated Date/Time: 11/05/2016 8:[address] OF THE HEAD WITHOUT CONTRAST CLINICAL HISTORY: Altered mental status. Generalized weakness. COMPARISON STUDY: Head CT August 18, 2016. CT DOSE: 537.48 mGy.cm TECHNIQUE: Helical axial images of the head were obtained without IV contrast. Automated exposure control was utilized for the study. FINDINGS: No acute intracranial hemorrhage, midline shift or mass effect is present. Ventricular system is stable. Basilar cisterns are patent. There are no extra-axial collections. White matter hypodensity suggests small vessel disease. 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 There are no findings to suggest acute dural sinus thrombosis or acute territorial infarct. There are no significant calvarial abnormalities. IMPRESSION: No acute intracranial findings. Electronically signed by: Mckinley Winkler M.D. 11/05/2016 8:57 AM Laboratory Results 11/05/16 08:30 Red Blood Count 3.24, Mean Corpuscular Volume 99.4, Mean Corpuscular Hemoglobin 31.8, Mean Corpuscular Hemoglobin Concent 32.0, Mean Platelet Volume 9.2 5/22/17 08:30 Test 11/05/16 08:10 11/05/16 08:30 11/05/16 08:33 Urine Color YELLOW Urine Appearance TURBID (CLEAR) Urine pH 6.5 (4.5-7.5) Urine Specific [place] 1.013 (1.000-1.030) Urine Protein 2+ (NEG) Urine Glucose (UA) NEG (NEG) Urine Ketones NEG (NEG) Urine Occult Blood 3+ (NEG) Urine Nitrite NEG (NEG) Urine Bilirubin NEG (NEG) Urine Urobilinogen NEG (NEG) Urine Leukocyte Esterase LARGE (NEG) Urine RBC (Auto) /hpf (0-4) Urine Hyaline Casts (Auto) /lpf (0-5) Urine RBC >30 /hpf (0-4) Urine WBC >30 /hpf (0-5) Urine Epithelial Cells 0-5 /lpf (0-5) Urine Bacteria 2+ (NEG) Urine Pathogenic Casts /lpf (0) Urine Yeast (Auto) (NONE PRSENT) White Blood Count 8.88 K/uL (4.8-10.8) Red Blood Count 3.24 M/uL (4.2-5.4) Hemoglobin 10.3 g/dL (12.0-16.0) Hematocrit 32.2 % (37-47) Mean Corpuscular Volume 99.4 fL (80-100) Mean Corpuscular Hemoglobin 31.8 pg (25-34) Mean Corpuscular Hemoglobin Concent 32.0 g/dl (32-36) Platelet Count 163 K/uL (130-400) Mean Platelet Volume 9.2 fL (7.4-10.4) RDW Standard Deviation 55.9 fL (36.4-46.3) RDW Coefficient of Variation 15.2 % (11.5-14.5) Neutrophils % (Manual) 74.6 % Lymphocytes % (Manual) 16.9 % Monocytes % (Manual) 5.1 % Eosinophils % (Manual) 1.7 % Myelocytes % 1.7 % Neutrophils # (Manual) 6.62 K/uL (1.4-6.5) Total Absolute Neutrophils 6.62 K/uL (1.4-6.5) Lymphocytes # (Manual) 1.50 K/uL (1.2-3.4) Total Absolute Lymphocytes 1.50 K/uL (1.2-3.4) Monocytes # (Manual) 0.45 K/uL (0.11-0.59) Eosinophils # (Manual) 0.15 K/uL (0-0.5) Myelocytes # 0.15 K/uL (0-0) Red Blood Cell Morphology Unremarkable Anion Gap 12.0 mmol/L (3-11) Est Creatinine Clear Calc Drug Dose 5.0 ml/min Estimated GFR () 5.4 Estimated GFR (Non- 4.6 BUN/Creatinine Ratio 16.5 (10-20) Calcium Level 9.6 mg/dl (8.5-10.1) Total Bilirubin 0.3 mg/dl (0.2-1) Direct Bilirubin 0.1 mg/dl (0-0.2) Aspartate Amino Transf (AST/SGOT) 16 U/L (15-37) Alanine Aminotransferase (ALT/SGPT) 26 U/L (12-78) Alkaline Phosphatase 76 U/L (45-117) Total Creatine Kinase 18 U/L (26-192) Creatine Kinase MB 0.7 ng/ml (0.5-3.6) Creatine Kinase MB Ratio 3.9 (0-3.0) Troponin I < 0.015 ng/ml (0-0.045) Total Protein 7.7 gm/dl (6.4-8.2) Albumin 2.9 gm/dl (3.4-5.0) Thyroid Stimulating Hormone (TSH) 2.450 uIu/ml (0.300-4.500) Bedside Glucose 130 mg/dl (70-90) Labs reviewed by ED physician. Medications Administered Medications (Trade) Dose Ordered Sig/Helder Route Start Time Stop Time Status Last Admin Dose Admin Sodium Chloride (Nss 500ml) 500 ml @ 999 mls/hr Q31M STAT IV 11/05/16 08:32 11/05/16 09:04 DC 11/05/16 08:57 999 MLS/HR Calcium Gluconate (Calcium Gluconate 10%) 1,000 mg NOW STAT IV 11/05/16 09:39 11/05/16 09:42 DC 11/05/16 09:58 1,000 MG Dextrose (Dextrose 50% 50ML Syringe) 50 ml NOW STAT IV 11/05/16 09:39 11/05/16 09:42 DC 11/05/16 09:59 50 ML Insulin Human Regular (novoLIN-R) 10 units ACHS STAT SC 11/05/16 09:39 11/05/16 09:42 DC 11/05/16 09:39 10 UNITS Sodium Bicarbonate 5 meq 5 meq NOW STAT IV 11/05/16 09:39 11/05/16 09:42 DC 11/05/16 09:58 5 MEQ Sodium Chloride (Nss 500ml) 500 ml @ 999 mls/hr Q31M STAT IV 11/05/16 09:44 11/05/16 10:14 DC 11/05/16 09:59 999 MLS/HR Ceftriaxone Sodium 1 gm 1 gm NOW STAT IV 11/05/16 09:49 11/05/16 09:52 DC 11/05/16 10:51 1 GM Daptomycin 378 mg/ Sodium Chloride 57.56 ml @ 100 mls/hr NOW STAT IV 11/05/16 09:52 11/05/16 10:26 DC 11/05/16 10:15 100 MLS/HR Sodium Chloride (Nss 1000ml) 1,000 ml @ 50 mls/hr Q20H IV 11/05/16 10:33 12/05/16 10:32 11/05/16 13:58 50 MLS/HR ECG Indication: weakness Rate (beats per minute): 89 Rhythm: normal sinus Findings: T-wave inversion (Lateral), no acute ischemic change, no ectopy ED Course 0819: Past medical records reviewed. The patient was evaluated in room B3B. A complete history and physical examination was performed. 0832: Ordered Sodium Chloride 500 ml @ 999 mls/hr IV. 0928: I discussed the patients case with Dr. Morrissey, [facility] [place] She is going to evaluate the patient for further treatment. 0931: I reevaluated the patient and she is resting comfortably. I discussed the exam findings with the patient and her . They verbalized complete understanding and agreement. The patient will be evaluated for further treatment and evaluation. 0939: Ordered Sodium Bicarbonate 5 meq IV, Insulin Human Regular 10 units SC, Dextrose 50 ml IV, Calcium Gluconate 1000 mg IV. 0948: I discussed the patients case with Dr. Fisher, Nephrology. He is aware that the patient will be in the hospital and will consult the patient. 0949: Ordered Rocephin Inj 1 gm IV. 951: Ordered Daptomycin 378 mg/Sodium Chloride 57.56 ml @ 100 mls/hr IV. Medical Decision Differential diagnosis: Etiologies such as metabolic, infection, hypo/hyperglycemia, electrolyte abnormalities, cardiac sources, intracerebral event, toxicologic, neurologic, as well as others were entertained. This is an 81-year-old female who presents emergency department complaining of generalized weakness. The patient has stage V kidney disease and was recently admitted to the hospital. Here in the emergency department the patient's potassium is elevated and in addition her creatinine has jumped the 7.6. Based on these findings I did consult patient's visiting professor who asked that the patient be admitted to the medicine service. In the meantime the patient was started on calcium insulin and dextrose as well as bicarbonate. I did discuss the patient with the hospitalist service who agreed to it the patient. Patient family were in agreement with the treatment plan. Consults Time Called: [phone] Consulting Physician: JESSICA Steele Returned Call: [phone] I discussed the patients case with JESSICA Steele. She is going to evaluate the patient for further treatment. Additional Consults: Time Called: [phone] Consulted Physician: Dr. Fisher, [facility] Returned Call: [phone] Additional Comments: I discussed the patients case with Dr. Fisher, Nephrology. He is aware that the patient will be in the hospital and will consult the patient. Impression Primary Impression: Acute kidney failure Critical Care I have personally spent greater than 90 minutes of critical care time in the direct management of this patient. This includes bedside care, interpretation of diagnostic studies, and testing, discussion with consultants, patient, and family members, and other required patient management activities. This 90 minutes is in excess of all separately billable procedures. Scribe Attestation The scribe's documentation has been prepared under my direction and personally reviewed by me in its entirety. I confirm that the note above accurately reflects all work, treatment, procedures, and medical decision making performed by me. Departure Information Dispostion Being Evaluated By Hospitalist Referrals José Luis Griffin MD (PCP) Problem Qualifiers Primary Impression: Acute kidney failure Acute renal failure type: unspecified Qualified Codes: N17.9 - Acute kidney failure, unspecified
[2016-11-05] MEDS ORDERED: CARV12.52 PO ×2 (08:41)
[2016-11-05 08:43] LABS: HEMATOCRIT 32.2 % (37-47); MEAN CELL VOLUME 99.4 fL (80-100); MEAN CORPUSCULAR HEMOGLOBIN 31.8 pg (25-34); MEAN PLATELET VOLUME 9.2 fL (7.4-10.4); PLATELET COUNT 163 K/uL (130-400); RED BLOOD COUNT 3.24 M/uL (4.2-5.4); WHITE BLOOD COUNT 8.88 K/uL (4.8-10.8)
--- NOTE | 2016-11-05 08:47 | DIAGNOSTIC IMAGING REPORT ---
CHEST ONE VIEW PORTABLE CLINICAL HISTORY: Generalized weakness. COMPARISON STUDY: Chest radiograph October 14, 2016. FINDINGS: A right PICC and single lead left subclavian pacer/AICD are in place. Cardiomegaly is unchanged. There is no evidence of pulmonary edema. There is no consolidation to suggest pneumonia. There are trace bilateral pleural effusions. These are unchanged. IMPRESSION: 1. No change in trace bilateral pleural effusions. 2. Stable cardiomegaly without evidence of pulmonary edema. Electronically signed by: Mckinley Winkler M.D. 11/05/2016 8:45 AM Dictated Date/Time: 11/05/2016 8:44 AM
[2016-11-05 08:53] LABS: URINE APPEARANCE TURBID (CLEAR); URINE BILIRUBIN NEG (NEG); URINE COLOR YELLOW; URINE NITRITE NEG (NEG); URINE PH 6.5 (4.5-7.5); URINE SPECIFIC GRAVITY 1.013 (1.000-1.030); UROBILINOGEN NEG (NEG); ZZURINE CULT IF INDIC CATH YES
--- NOTE | 2016-11-05 08:58 | DIAGNOSTIC IMAGING REPORT ---
CT OF THE HEAD WITHOUT CONTRAST CLINICAL HISTORY: Altered mental status. Generalized weakness. COMPARISON STUDY: Head CT August 18, 2016. CT DOSE: 537.48 mGy.cm TECHNIQUE: Helical axial images of the head were obtained without IV contrast. Automated exposure control was utilized for the study. FINDINGS: No acute intracranial hemorrhage, midline shift or mass effect is present. Ventricular system is stable. Basilar cisterns are patent. There are no extra-axial collections. White matter hypodensity suggests small vessel disease. 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 There are no findings to suggest acute dural sinus thrombosis or acute territorial infarct. There are no significant calvarial abnormalities. IMPRESSION: No acute intracranial findings. Electronically signed by: Mckinley Winkler M.D. 11/05/2016 8:57 AM Dictated Date/Time: 11/05/2016 8:55 AM
[2016-11-05 09:00] LABS: CALCIUM 9.6 mg/dl (8.5-10.1)
[2016-11-05 09:00] LABS: MANUAL MICROSCOPIC REQUIRED? YES; REVIEW REQ? NO
[2016-11-05 09:15] LABS: URINE RBC >30 /hpf (0-4); URINE WBC >30 /hpf (0-5)
[2016-11-05 09:16] LABS: URINE BACTERIA 2+ (NEG)
[2016-11-05 09:19] LABS: COMPLETE YES; EOSINOPHIL % 1.7 %; LYMPHOCYTE % 16.9 %; MYELOCYTE % 1.7 %; NEUTROPHILS % 74.6 %
[2016-11-05 09:23] LABS: ALKALINE PHOSPHATASE 76 U/L (45-117); ALT/SGPT 26 U/L (12-78); AST/SGOT 16 U/L (15-37); BLOOD UREA NITROGEN 122 mg/dl (7-18); BUN/CREATININE RATIO 16.5 (10-20); CARBON DIOXIDE 16 mmol/L (21-32); CHLORIDE 113 mmol/L (98-107); CKMB/CK RATIO 3.9 (0-3.0); GLUCOSE 116 mg/dl (70-99); SODIUM 141 mmol/L (136-145)
[2016-11-05 09:37] LABS: POTASSIUM 6.5 mmol/L (3.5-5.1)
[2016-11-05] MEDS ORDERED: INSULIN HUMAN REGULAR SC STA (09:39)
[2016-11-05] MEDS ORDERED: DEXTROSE 50% 50 ML SYR IV STA (09:39)
[2016-11-05] MEDS ORDERED: SODIUM BICARBONATE 4.2% INJ 10 ML SYR IV STA (09:39)
[2016-11-05] MEDS ORDERED: CALCIUM GLUCONATE 10% 10 ML VIAL IV STA (09:39)
[2016-11-05 09:48] VITALS: O2SAT 98; Ht 162.6 cm; Wt 62.2 kg
[2016-11-05] MEDS ORDERED: CEFTRIAXONE SOD INJ 1 GM ADDVIAL IV STA (09:49)
[2016-11-05] MEDS ORDERED: DAPTOmycin IV 378 MG in SODIUM CHLORIDE 0.9% 50ML 50 ML IV STA (09:52)
[2016-11-05] MEDS ORDERED: NovoLIN-R INSULIN PER UNIT CHARGE ONE (09:57)
[2016-11-05] MEDS ORDERED: SODIUM CHLORIDE 0.9% 1000ML 1,000 ML IV SCH (10:33)
[2016-11-05] MEDS ORDERED: ACETAMINOPHEN 325 MG TAB PO PRN (10:45)
[2016-11-05] MEDS ORDERED: ONDANSETRON 4MG OD TAB PO PRN (10:45)
[2016-11-05] MEDS ORDERED: MAGNESIUM HYDROXIDE SUSP 30 ML UDC PO PRN (10:45)
[2016-11-05] MEDS ORDERED: LORAZEPAM 0.5 MG TAB PO PRN (10:45)
--- NOTE | 2016-11-05 11:16 | History and Physical ---
History & Physical Date & Time of Service: November 05, 2016 at 10:54 Chief Complaint: Generalized Weakness Primary Care Physician: José Luis Griffin MD History of Present Illness Source: patient, spouse 81 y/o F who was brought to [facility] by her for concerns regarding worsening weakness and PO intake. Pt was d/c'd from [facility] on 10/16/16 after receiving tx for UTI, which is an ongoing issue for her. She finished a course of abx at home and was doing well until about 1 week ago when her noted that she was hypoTN and getting weaker. He checks her VS 8-10x/day and this was an abrupt change. He decided to stop her carvedilol and to monitor her at home. Her BP improved quickly, in fact it got too high so he restarted her carvedilol at a lower dose (12.5mg from 25mg). Her BP remained stable, however her weakness continued to worsen and she stopped eating much more than about 1 bite at a sitting. He changes her daily and notes that she seemed to be urinating a usual amount, stating specifically that her depends weigh at least 1 -2 pounds wet. There had been no visual concerns about her urine until this AM when he noted it was darker and concerning for blood. He decided to bring her in at that time. He also notes that she has had occasional hallucinations, mostly at night and this is c/w UTI sx. He states that she has otherwise been at her usual mentation, reading her Nilo daily and no issues with her conversation or other signs of confusion. He states she has had no LE swelling. Pt has b/l ureteral stents in place for about 3 months. She was to have f/u in early November with urology to discuss this. states that he and pt have been active with hospice and palliative care in the past, but that he "didn't see much value" in it. It seems his biggest concern was that a nurse came to their home and suggested that pt have her ICD turned off. He feels that if pt's issues revolve around infection, they are willing to continue tx. He does not wish to pursue HD. Dr. Fisher was present and discussed other options like percutaneous stenting, however Dr. Fisher does not feel pt would tolerate this procedure, and agrees. Pt has no actual complaints at this time. Pt denies fever, SOB, chest pain, abd pain, n/v/c/d, LE pain or swelling, urinary sx, back pain. ROS as noted above, otherwise neg. Past Medical/Surgical History Medical Problems: (1) Acute kidney injury Status: Resolved (2) Acute renal failure superimposed on stage 4 chronic kidney disease Status: Resolved (3) Acute urinary tract infection Status: Resolved (4) Benign hypertension Status: Chronic (5) Cardiac catheterization Status: Resolved (6) CHF (congestive heart failure) Status: Resolved (7) Cholecystectomy Status: Resolved (8) Chronic kidney disease Status: Chronic (9) Coronary artery disease Status: Chronic (11) Ischemic cardiomyopathy Status: Resolved (12) Myocardial infarction Status: Chronic (13) Pneumonia Status: Resolved (14) 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 Status: Resolved (15) Sepsis Status: Resolved (16) Sepsis due to Klebsiella Status: Resolved (17) sepsis recurrent UTI BONNIE on ckd Status: Resolved (18) Systolic CHF Status: Resolved (19) UTI (urinary tract infection) Status: Resolved (20) UTI (urinary tract infection) Status: Resolved Surgical Problems: (1) History of cholecystectomy Status: Resolved Family History Family history was reviewed; no changes noted. Social History Smoking Status: Never Smoker Alcohol Use: none Drug Use: none Marital Status: Housing status: lives with significant other Occupational Status: retired Immunizations History of Influenza Vaccine: Yes Influenza Vaccine Date: Mar 17, 2010 History of Tetanus Vaccine?: No History of Pneumococcal: No Pneumococcal Date: Jun 06, 2011 History of Hepatitis B Vaccine: No Multi-Drug Resistant Organisms History of MDRO: Yes Type of MDRO: other Allergies Coded Allergies: Sulfa Antibiotics (Verified Allergy, Intermediate, BODY SWELLING,NAUSEA AND VOMITNG, 11/05/16) Penicillins (Verified Allergy, Unknown, Tolerates Primaxin, does NOT tolerate ZOSYN, 11/05/16) PER PCP RECORDS Home Medications Scheduled Aspirin (Aspirin), 81 MG PO QPM Atorvastatin (Lipitor), 80 MG PO QPM Carvedilol (Coreg), 12.5 MG PO BID Cholecalciferol (Vitamin D3), 1 TAB PO DAILY Clopidogrel Bisulfate (Clopidogrel), 75 MG PO QPM Febuxostat (Uloric), 40 MG PO NOON Loteprednol Etabonate (Lotemax), 1 DROP OPB QAM Multiple Vitamins W/ Minerals (Centrum Silver Ultra [place]), 1 TAB PO QAM Nystatin (Nystop), 1 DOSE TOP BID Pantoprazole (Pantoprazole Sodium), 40 MG PO QAM Probiotic Product (Probiotic), 1 TAB PO QPM Sodium Bicarbonate (Sodium Bicarbonate), 1 TAB PO QAM Vancomycin Hcl (Vancomycin), 125 MG PO QAM [cranberry tablets], 1 TAB PO QID Scheduled PRN Lorazepam (Ativan), 0.5 MG PO Q6H PRN for Anxiety Ondasetron Odt (Zofran Odt), 4 MG PO Q6H PRN for Nausea Physical Exam Vital Signs Date Time Temp Pulse Resp B/P Pulse Ox O2 Delivery O2 Flow Rate FiO2 11/05/16 10:09 77 22 118/64 100 Nasal Cannula 2.0 11/05/16 09:48 98 Nasal Cannula 2.0 11/05/16 08:23 98 Nasal Cannula 2.0 11/05/16 08:05 88 11/05/16 08:04 94 Room Air 11/05/16 08:04 36.8 89 18 119/71 95 Room Air General Appearance: WD/WN, no apparent distress Head: normocephalic, atraumatic Respiratory/Chest: normal breath sounds (with poor pt participation), no respiratory distress Cardiovascular: regular rate, rhythm, no edema, normal peripheral pulses Abdomen/GI: non tender, soft Extremities/Musculoskelatal: no calf tenderness, no pedal edema Neurologic/Psych: alert, oriented x 3 Skin: normal color, warm/dry Diagnostics Laboratory Results Results Past 24 Hours Test 11/05/16 08:10 11/05/16 08:30 11/05/16 08:33 Range/Units Urine Color YELLOW Urine Appearance TURBID CLEAR Urine pH 6.5 4.5-7.5 Urine Specific [place] 1.013 1.000-1.030 Urine Protein 2+ NEG Urine Glucose (UA) NEG NEG Urine Ketones NEG NEG Urine Occult Blood 3+ NEG Urine Nitrite NEG NEG Urine Bilirubin NEG NEG Urine Urobilinogen NEG NEG Urine Leukocyte Esterase LARGE NEG Urine RBC (Auto) 0-4 /hpf Urine Hyaline Casts (Auto) 0-5 /lpf Urine RBC >30 0-4 /hpf Urine WBC >30 0-5 /hpf Urine Epithelial Cells 0-5 0-5 /lpf Urine Bacteria 2+ NEG Urine Pathogenic Casts 0 /lpf Urine Yeast (Auto) NONE PRSENT White Blood Count 8.88 4.8-10.8 K/uL Red Blood Count 3.24 4.2-5.4 M/uL Hemoglobin 10.3 12.0-16.0 g/dL Hematocrit 32.2 37-47 % Mean Corpuscular Volume 99.4 80-100 fL Mean Corpuscular Hemoglobin 31.8 25-34 pg Mean Corpuscular Hemoglobin Concent 32.0 32-36 g/dl Platelet Count 163 130-400 K/uL Mean Platelet Volume 9.2 7.4-10.4 fL RDW Standard Deviation 55.9 36.4-46.3 fL RDW Coefficient of Variation 15.2 11.5-14.5 % Neutrophils % (Manual) 74.6 % Lymphocytes % (Manual) 16.9 % Monocytes % (Manual) 5.1 % Eosinophils % (Manual) 1.7 % Myelocytes % 1.7 % Neutrophils # (Manual) 6.62 1.4-6.5 K/uL Total Absolute Neutrophils 6.62 1.4-6.5 K/uL Lymphocytes # (Manual) 1.50 1.2-3.4 K/uL Total Absolute Lymphocytes 1.50 1.2-3.4 K/uL Monocytes # (Manual) 0.45 0.11-0.59 K/uL Eosinophils # (Manual) 0.15 0-0.5 K/uL Myelocytes # 0.15 0-0 K/uL Red Blood Cell Morphology Unremarkable Sodium Level 141 136-145 mmol/L Potassium Level 6.5 3.5-5.1 mmol/L Chloride Level 113 98-107 mmol/L Carbon Dioxide Level 16 21-32 mmol/L Anion Gap 12.0 3-11 mmol/L Blood Urea Nitrogen 122 7-18 mg/dl Creatinine 7.40 0.60-1.20 mg/dl Est Creatinine Clear Calc Drug Dose 5.0 ml/min Estimated GFR () 5.4 Estimated GFR (Non- 4.6 BUN/Creatinine Ratio 16.5 10-20 Random Glucose 116 70-99 mg/dl Calcium Level 9.6 8.5-10.1 mg/dl Total Bilirubin 0.3 0.2-1 mg/dl Direct Bilirubin 0.1 0-0.2 mg/dl Aspartate Amino Transf (AST/SGOT) 16 15-37 U/L Alanine Aminotransferase (ALT/SGPT) 26 12-78 U/L Alkaline Phosphatase 76 45-117 U/L Total Creatine Kinase 18 26-192 U/L Creatine Kinase MB 0.7 0.5-3.6 ng/ml Creatine Kinase MB Ratio 3.9 0-3.0 Troponin I < 0.015 0-0.045 ng/ml Total Protein 7.7 6.4-8.2 gm/dl Albumin 2.9 3.4-5.0 gm/dl Thyroid Stimulating Hormone (TSH) 2.450 0.300-4.500 uIu/ml Bedside Glucose 130 70-90 mg/dl Microbiology Results 11/05/16 Urine Culture, Received Pending Diagnostic Radiology CXR with trace pleural effusions CT head neg for acute Impression Assessment and Plan 81 y/o F who was admitted on 11/05 for acute on chronic renal failure Weakness: likely related to acute on chronic renal failure UTI vs pyelo vs infected stents vs worsening renal failure states pt is making usual amount of urine, will monitor Started on ceftriaxone and dapto in the ED, cx on most recent admission was neg, however cx from earlier in September 2016 with sensitivity to ceftriaxone. Will monitor on single agent abx to avoid ongoing resistance issues and pt has no signs of sepsis at this time Gentle IVF until pt's UOP is better assessed Urine cx pending with UA + for leuk est, neg nitrites CT AP pending to assess ureteral stents POA (x3 months), follows with [facility] [place] if needed Dr. Fisher present and is not planning on HD for now Pt's baseline is stage V and cr 3.5 CT head neg for acute Chronic UTI: pt takes cranberry supplementation in place of abx proph due to renal failure HyperK: Likely related to renal function Monitor with IVF, insulin, bicarb HTN: pt received her AM carvedilol dosing, will hold until BP trend is more clear Ischemic cardiomyopathy: ICD in place Chronic vanco use: states this is for cdiff prevention Probiotic use also Of note: DM is listed in pt's chart, however pt is not a diabetic Other: Full code per pt's wishes Reg diet Heparin for DVT proph Level of Care Telemetry Advanced Directives Existing Living Will: Yes Existing Power of Electrical Continuity Tester: Yes Resuscitation Status FULL RESUSCITATION VTE Prophylaxis VTE Risk Assessment Done? Y/N: Yes Risk Level: Low
--- NOTE | 2016-11-05 11:20 | DIAGNOSTIC IMAGING REPORT ---
CT SCAN OF THE ABDOMEN AND PELVIS WITHOUT IV CONTRAST CLINICAL HISTORY: Acute renal insufficiency. COMPARISON STUDY: Abdominal CT dated 09/16/2015. Renal ultrasound dated 10/12/2016. TECHNIQUE: CT scan of the abdomen and pelvis is performed from the lung bases to the proximal femora. Images reviewed in the axial, sagittal, and coronal planes. IV contrast was not administered for this examination as per the referring clinician. Note that the examination was performed in suboptimal fashion without oral and IV contrast. The examination is also degraded by streak artifact from the patient's right arm which could not be elevated above the abdomen. CT DOSE: 480.52 mGy.cm FINDINGS: Lung bases: The heart is enlarged there is trace pericardial fluid. The coronary arteries and mitral annulus are densely calcified. Pacemaker leads are noted. There is diminished attenuation of the cardiac blood pool as compared to the myocardium suggesting anemia. Chronic interstitial changes are present both lung bases. Trace pleural effusions are identified with bibasilar atelectasis. No airspace consolidation is seen typical for pneumonia. There are small calcified granulomas. There is a small hiatal hernia. Liver: Evaluation of the liver is degraded by streak artifact. The unenhanced liver is mildly enlarged, measuring 19.3 cm in length. The liver is normal in contour and attenuation. There is mild central intrahepatic biliary ductal dilatation, likely on a postoperative basis. Gallbladder: Surgically absent noting clips in the gallbladder fossa. Spleen: Normal in size and attenuation. There are small calcified splenic granulomas. 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 Pancreas: The unenhanced pancreas is moderately atrophic and grossly unremarkable. Adrenal glands: Unremarkable. Kidneys: The unenhanced kidneys are markedly atrophic. Bilateral ureteral stents are in place. There is moderate to severe bilateral hydroureteronephrosis. Both ureters are dilated to the level of the bladder. There are no renal calculi identified. No calculi are identified within either ureter along the course of the stents. No contour deforming renal mass lesion is suspected. Abdominal vasculature: There is advanced atherosclerotic calcification and mild ectasia of the abdominal aorta. Bowel: The small bowel and colon are normal in course and caliber. There is moderate colonic fecal retention. There is moderate sigmoid diverticulosis without CT evidence of acute diverticulitis. Chronic thickening adjacent to the proximal sigmoid colon is similar to previous. The appendix is not identified and reported surgically absent. Peritoneum: There is no intraperitoneal free air or abdominal ascites. There is a small fat-containing umbilical hernia. A midline surgical scar is noted. Lymphadenopathy: None. Pelvic viscera: The bladder is decompressed. The bladder wall appears circumferentially thickened and there is pericystic inflammation. The ends of ureteral stents are present within the bladder lumen. The uterus is surgically absent. No adnexal lesion is seen. Pelvic floor prolapse is suspected. Skeletal structures: The skeletal structures are osteopenic. No lytic or blastic bony lesions are seen. There is moderate lumbosacral spondylosis and scoliosis. Soft tissues: A PICC line is partially visualized in the right arm. IMPRESSION: 1. Suboptimal examination without oral and IV contrast. 2. Bilateral ureteral stents are in appropriate position. No calculi are identified. 3. There is moderate to severe bilateral hydroureteronephrosis. The ureters are dilated to the level of the bladder, and this represents a change from the 09/16/2015 CT scan. This may be similar to the 10/12/2016 ultrasound although comparison is difficult across modalities. This suggests stent dysfunction. Follow-up with urology is recommended. 4. Although decompressed, the bladder wall appears thickened and there is pericystic inflammation. Correlate clinically and with urinalysis for evidence of cystitis. 5. Trace pleural effusions. 6. Moderate sigmoid diverticulosis without CT evidence of acute diverticulitis. 7. Additional changes as detailed above. Electronically signed by: Hitesh Macdonald M.D. 11/05/2016 11:19 AM Dictated Date/Time: 11/05/2016 11:10 AM
--- NOTE | 2016-11-05 11:22 | Procedure Note ---
Procedure Note Procedure Date November 05, 2016. Procedure Description Time of procedure: 10:45 Central Line Procedure time out: side/site verified, patient ID confirmed, sterile procedure used Consent obtained: written (From Pt's son, Pt. ALANNALISE) Time of procedure: 10:45 Performed by: resident (Dr. Ramsey) Indications: poor venous access, central drug admin. Prep: chlorhexadine prep, sterile drape, sterile procedures used Anesthesia: lidocaine 1% without epi Volume anesthetic (ml's): 3 Central line lumen: triple Central line location: internal jugular (L) Additional details: percutaneous placement, ultrasound guidance, Selinger technique used, line sutured, good blood return Complications: none Patient tolerated procedure: well Post-procedure vital signs: reviewed and stable Comments: Critical Care Medicine Point of Care Bedside Ultrasound Procedure: Procedural Ultrasound Procedure Date: 11/05/16 Indication: Poor Venous Access, Sepsis Attending: Avery Vernon DO Resident/Physician Sound Engineer Audio Control: Braulio Artery AND Vein visualized: y Compressible Vein: y Guidewire or Short Catheter seen in vein prior to dilation: y Line confirmed in Vein with ultrasound: y Lung Sliding on side of attempt (if applicable): NA If no lung sliding or not obtained has CXR been ordered: Y Impression: Successful Left IJ placement Plan: Review Post-procedure CXR Images obtained are saved for permanent record I was present and assisted during the entire procedure.
--- NOTE | 2016-11-05 11:26 | Critical Care Progress Note ---
Critical Care Progress Note Date of Service November 05, 2016. Critical Care Progress Note I was consulted by the Emergency Department (Dr. Whitaker) for placement of central venous access due to inability to obtain blood for laboratory analysis and poor vascular access. HPI: 81 y/o female ALOC frequent UTI PE: Altered CVS: S1 S2 Pulm: CTA Neck: patent Left IJ Impression: Successful Left IJ placement Plan: review post-procedure CXR
[2016-11-05 12:00] VITALS: O2SAT 96
[2016-11-05 12:25] VITALS: BP 132/58; PULSE 81; TEMP 36.8; O2SAT 98
--- NOTE | 2016-11-05 12:45 | Nephrology Consultation ---
Nephrology Consultation Date & Providers Date of Consultation: November 05, 2016. Primary Care Provider: José Luis Griffin MD Referring Provider: Reason for Consultation Acute on chronic renal insufficiency History of Present Illness Mrs. Chase is an 81-year-old female who was seen this morning for evaluation of acute on chronic kidney injury and hyperkalemia. Patient was seen & evaluated in the emergency department with her and Dr. Morrissey at the bedside. Medical records in the hospital EMR were reviewed. Tiana presented to [facility] with generalized weakness and hypotension. She was most recently admitted from 10/12 - 10/16 with encephalopathy, UTI, dehydration and acute on chronic renal failure. She was discharged with a serum creatinine of 4.2 mg/dL. There was no growth on urine culture from 10/12. She required volume resuscitation and antibiotics. She was treated with 14 days of Omnicef. Tiana was admitted with UTI twice in September. She has been admitted to [facility] a total of 6 times in the past 5 months. Since discharge earlier this month, her reports persistent anorexia. She has been started on a cranberry supplement prophylaxis for recurrent urinary tract infection. Recent infections include klebsiella and E coli. The patient and her have refused to consider PCN in the past. Unfortunately, at this time, she is notably hyperkalemic. EKG did not show acute changes. She presented with generalized weakness which started earlier today. Labs show increase in serum creatinine. Her has not observed any change in urine output. She wears diapers due to urinary incontinence. She was significantly weak this morning. She was able to transfer from bed on her own yesterday. Today, she was too weak to transfer. She was treated with Kayexalate, bicarbonate, insulin and dextrose in the ED. Antibiotic therapy was started with Cubicin and Rocephin. V saline infusion also started. Mr. Chase also describes recent hypotension over the past several days. Carvedilol was held due to hypotension. After a few days blood pressure improved and the medication was restarted at a reduced dose. She did receive the medication this morning. 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 She has an AICD in place. 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 Mrs. Chase has urinary and fecal incontinence. She wears Tranquility briefs. She suffers from interstitial cystitis and recurrent UTI. This has resulted in need for chronic antibiotic therapy which has been complicated by clostridium difficile colitis and recurrent diarrhea. In 07/02 the patient underwent cystoscopy. Mrs. Chase was found to have severe bladder inflammation resulting in bilateral ureteral obstruction and BONNIE. She subsequently underwent bilateral ureteral stent placement. She has been having these changed out on a regular basis by urology. We have discussed patient's advanced renal impairment. Tiana and her had previously expressed a desire to not pursue dialysis. Dr. Corral confirmed similar discussions. She desired only conservative medical management. Tiana had been on hospice care in the past but her expressed today that he did not see the point. He also expressed that he saw no point in turning off her defibrillator. Past Medical/Surgical History Medical: # CKD stage IV (advanced impairment). 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 difficile colitis # Chronic respiratory failure requiring ATC 02 # Obesity # General debilitated condition Surgical: # Bilateral corneal transplant # Cholecystectomy # Appendectomy # AICD # Bilateral ureteral stent 07/02 Allergies Coded Allergies: Sulfa Antibiotics (Verified Allergy, Intermediate, BODY SWELLING,NAUSEA AND VOMITNG, 11/05/16) Penicillins (Verified Allergy, Unknown, Tolerates Primaxin, does NOT tolerate ZOSYN, 11/05/16) PER PCP RECORDS Inpatient Medications Current Inpatient Medications Medications (Trade) Dose Ordered Sig/Helder Route Start Time Stop Time Status Last Admin Dose Admin Heparin Sodium (Porcine) 5000 unit 5,000 unit Q8 SQ 11/05/16 14:00 12/05/16 13:59 UNV Sodium Chloride (Nss 1000ml) 1,000 ml @ 50 mls/hr Q20H IV 11/05/16 10:33 12/05/16 10:32 UNV Acetaminophen (Tylenol Tab) 650 mg Q4H PRN PO 11/05/16 10:45 12/05/16 10:44 Magnesium Hydroxide (Milk Of Magnesia Susp) 30 ml Q12H PRN PO 11/05/16 10:45 12/05/16 10:44 Ondansetron HCl (Zofran Inj) 4 mg Q6H PRN IV 11/05/16 10:45 12/05/16 10:44 Aspirin (Ecotrin Tab) 81 mg QPM PO 11/05/16 21:00 12/05/16 20:59 UNV Atorvastatin Calcium (Lipitor Tab) 80 mg QPM PO 11/05/16 21:00 12/05/16 20:59 UNV Cholecalciferol (Vitamin D Tab) 1,000 inter.unit DAILY PO 11/06/16 09:00 12/06/16 08:59 UNV Clopidogrel Bisulfate (plAVix TAB) 75 mg QPM PO 11/05/16 21:00 12/05/16 20:59 UNV Lorazepam (Ativan Tab) 0.5 mg Q6H PRN PO 11/05/16 10:45 12/05/16 10:44 Multivitamins/ Minerals (Multivitamin W/ Minerals Tab) 1 tab QAM PO 11/06/16 09:00 12/06/16 08:59 UNV Nystatin (Mycostatin Powder) 1 appln BID EXT 11/05/16 21:00 12/05/16 20:59 UNV Ondansetron HCl (Zofran Odt) 4 mg Q6H PRN PO 11/05/16 10:45 12/05/16 10:44 Pantoprazole Sodium (Protonix Tab) 40 mg QAM PO 11/06/16 09:00 12/06/16 08:59 UNV Sodium Bicarbonate (Sodium Bicarbonate Tab) 650 mg QAM PO 11/06/16 09:00 12/06/16 08:59 UNV Vancomycin HCl (Vancomycin Oral Soln) 125 mg QAM PO 11/06/16 09:00 11/20/16 08:59 UNV Non-Formulary Medication (Febuxostat (Uloric)) 40 mg NOON PO 11/05/16 10:45 12/05/16 10:44 UNV Non-Formulary Medication (Loteprednol Etabonate (Lotemax)) 1 drop QAM OPB 11/06/16 09:00 12/06/16 08:59 UNV Non-Formulary Medication (Probiotic Product (Probiotic)) 1 tab QPM PO 11/05/16 21:00 12/05/16 20:59 UNV Non-Formulary Medication 1 tab 1 tab QID PO 11/05/16 13:00 12/05/16 12:59 UNV Ceftriaxone Sodium/Dextrose (Rocephin Inj/ Dextrose Add-[place] 50ML) 50 ml @ 100 mls/hr Q24H IV 11/05/16 10:45 11/15/16 10:44 UNV Family History Diabetes mellitus Other cardiovascular diseases Stroke Social History Smoking Status: Never Smoker Alcohol Use: none Drug Use: none Marital Status: Housing Status: lives with significant other 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 Review of Systems A complete review of systems was performed. Pertinent positives are noted above. All other systems are negative. Physical Exam Date Time Temp Pulse Resp B/P Pulse Ox O2 Delivery O2 Flow Rate FiO2 11/05/16 11:11 81 20 129/64 100 Nasal Cannula 2.0 11/05/16 11:07 76 11/05/16 10:09 77 22 118/64 100 Nasal Cannula 2.0 11/05/16 09:48 98 Nasal Cannula 2.0 11/05/16 08:23 98 Nasal Cannula 2.0 11/05/16 08:05 88 11/05/16 08:04 94 Room Air 11/05/16 08:04 36.8 89 18 119/71 95 Room Air General Appearance: + pertinent finding (well developed, generalized weakness, no acute distress, frail appearing) Head: normocephalic, atraumatic Eyes: sclerae normal, + pertinent finding (disconjugate gaze) ENT: normal ENT inspection, pharynx normal (oral mucosa slightly dry) Neck: supple, no JVD Respiratory/Chest: + decreased breath sounds (patient refused complete pulmonary exam) Cardiovascular: regular rate, rhythm Abdomen/GI: non tender, soft Extremities/Musculoskelatal: normal inspection, no pedal edema Neurologic/Psych: alert, + pertinent finding (Tiana does not participate in discussion) Skin: normal color Laboratory Results Last 24 Hours Test 11/05/16 08:10 11/05/16 08:30 11/05/16 08:33 Urine Color YELLOW Urine Appearance TURBID Urine pH 6.5 Urine Specific [place] 1.013 Urine Protein 2+ Urine Glucose (UA) NEG Urine Ketones NEG Urine Occult Blood 3+ Urine Nitrite NEG Urine Bilirubin NEG Urine Urobilinogen NEG Urine Leukocyte Esterase LARGE Urine RBC (Auto) /hpf Urine Hyaline Casts (Auto) /lpf Urine RBC >30 /hpf Urine WBC >30 /hpf Urine Epithelial Cells 0-5 /lpf Urine Bacteria 2+ Urine Pathogenic Casts /lpf Urine Yeast (Auto) White Blood Count 8.88 K/uL Red Blood Count 3.24 M/uL Hemoglobin 10.3 g/dL Hematocrit 32.2 % Mean Corpuscular Volume 99.4 fL Mean Corpuscular Hemoglobin 31.8 pg Mean Corpuscular Hemoglobin Concent 32.0 g/dl Platelet Count 163 K/uL Mean Platelet Volume 9.2 fL RDW Standard Deviation 55.9 fL RDW Coefficient of Variation 15.2 % Neutrophils % (Manual) 74.6 % Lymphocytes % (Manual) 16.9 % Monocytes % (Manual) 5.1 % Eosinophils % (Manual) 1.7 % Myelocytes % 1.7 % Neutrophils # (Manual) 6.62 K/uL Total Absolute Neutrophils 6.62 K/uL Lymphocytes # (Manual) 1.50 K/uL Total Absolute Lymphocytes 1.50 K/uL Monocytes # (Manual) 0.45 K/uL Eosinophils # (Manual) 0.15 K/uL Myelocytes # 0.15 K/uL Red Blood Cell Morphology Unremarkable Sodium Level 141 mmol/L Potassium Level 6.5 mmol/L Chloride Level 113 mmol/L Carbon Dioxide Level 16 mmol/L Anion Gap 12.0 mmol/L Blood Urea Nitrogen 122 mg/dl Creatinine 7.40 mg/dl Est Creatinine Clear Calc Drug Dose 5.0 ml/min Estimated GFR () 5.4 Estimated GFR (Non- 4.6 BUN/Creatinine Ratio 16.5 Random Glucose 116 mg/dl Calcium Level 9.6 mg/dl Total Bilirubin 0.3 mg/dl Direct Bilirubin 0.1 mg/dl Aspartate Amino Transf (AST/SGOT) 16 U/L Alanine Aminotransferase (ALT/SGPT) 26 U/L Alkaline Phosphatase 76 U/L Total Creatine Kinase 18 U/L Creatine Kinase MB 0.7 ng/ml Creatine Kinase MB Ratio 3.9 Troponin I < 0.015 ng/ml Total Protein 7.7 gm/dl Albumin 2.9 gm/dl Thyroid Stimulating Hormone (TSH) 2.450 uIu/ml Bedside Glucose 130 mg/dl Impression (1) Hyperkalemia (2) Acute kidney injury (3) Acute on chronic renal failure (4) CKD (chronic kidney disease) stage 5, GFR less than 15 ml/min (5) Recurrent UTI (6) Generalized weakness (7) Bilateral hydronephrosis (8) Coronary artery disease (9) Systolic CHF Mrs. Chase presented to [facility] today with generalized weakness. She has acute on advanced renal failure and hyperkalemia. Imaging concerning for obstruction. Clinical presentation consistent with recurrent UTI. Cultures without growth. She has a recent similar admission with cultures growing Klebsiella UTI as well as prior E coli UTI. She will require urology evaluation. CT scan was reviewed. I discussed the seriousness of her current condition with the patient and her in the ED this morning. He remains optimistic that she will improve with IV fluids and antibiotics. Unfortunately , the trend in terms of her renal function over time is not encouraging. She will not be a candidate for urologic intervention unless potassium improves. She has chronic bladder inflammation obstructing her ureters. She has had bilateral ureteral stents in situ. She has advanced CKD and had previously refused hemodialysis. She also refused PCN tubes in the past. At this time, her expressed that he would not exclude any care. Unfortunately, she is not currently a candidate for hemodialysis based on advanced comorbidities, debility and frailty. I do not expect that the therapy would significantly prolong her life or add any quality of life. 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 difficile colitis, ICM w/ LVEF 25%, moderate MR, pulmonary HTN and moderate TR, AICD placement, hypercholesterolemia, chronic respiratory failure requiring ATC 02, obesity (BMI 32), general debilitated condition Recommendations BONNIE: -- Start HCO3 infusion @ 100 ml/hr -- Repeat metabolic profile this afternoon Hyperkalemia: -- Treated with Kayexalate, HCO3 and insulin -- Repeat assessment this afternoon -- K restrict diet -- traffic monitor specialist CKD: -- Baseline creatinine 3.4 -- Medications currently appropriately dosed for renal function Hypertension: -- Hold carvedilol as needed Anemia -- Chronic -- Will monitor ID: -- Cultures obtained and pending Hydronephrosis with indwelling stents: -- Urology consult
[2016-11-05] MEDS: HEPARIN SOD 5000 UNIT/0.5 ML CARP SQ SCH ×2 (14:00→21:56)
[2016-11-05] MEDS: FEBUXOSTAT 40 MG TAB PO SCH (14:00)
[2016-11-05 15:55] VITALS: BP 149/66; PULSE 84; TEMP 36.6; O2SAT 99
[2016-11-05] MEDS: ONDANSETRON INJ 2 MG/ML 2 ML VIAL IV PRN (16:50)
[2016-11-05] MEDS: SODIUM BICARBONATE 8.4% INJ 150 MEQ in STERILE WATER 1000 ML 1,000 ML IV SCH (17:00)
[2016-11-05 17:39] LABS: BUN/CREATININE RATIO 15.7 (10-20); CALCIUM 8.9 mg/dl (8.5-10.1); PHOSPHORUS 5.1 mg/dl (2.5-4.9)
[2016-11-05 17:46] LABS: POTASSIUM 6.3 mmol/L (3.5-5.1)
[2016-11-05] MEDS: ASPIRIN 81 MG ECTAB PO SCH (20:34)
[2016-11-05] MEDS: NYSTATIN POWDER 15GM BTL EXT SCH (20:34)
[2016-11-05] MEDS: LACTOBACILLUS ACIDOPHILUS (FLORANEX) TAB PO SCH (20:34)
[2016-11-05] MEDS: CLOPIDOGREL BISULFATE 75 MG TAB PO SCH (20:34)
[2016-11-05] MEDS: ATORVASTATIN 40 MG TAB PO SCH (20:35)
[2016-11-05 20:37] VITALS: BP 125/65; PULSE 90; TEMP 37.8; O2SAT 98
[2016-11-05] MEDS ORDERED: LACTOBACILLUS ACIDOPHILUS (FLORANEX) TAB PO SCH (21:00)
[2016-11-06] VITALS: BP 119/61; PULSE 64; TEMP 36.6; O2SAT 94
[2016-11-06] MEDS: SODIUM BICARBONATE 8.4% INJ 150 MEQ in STERILE WATER 1000 ML 1,000 ML IV SCH ×2 (03:55→16:42)
[2016-11-06 04:00] VITALS: BP 124/61; PULSE 88; TEMP 36.7; O2SAT 99
[2016-11-06 05:48] LABS: HEMATOCRIT 25.5 % (37-47); MEAN CELL VOLUME 97.7 fL (80-100); MEAN CORPUSCULAR HEMOGLOBIN 30.7 pg (25-34); MEAN CORPUSCULAR HGB CONC 31.4 g/dl (32-36); PLATELET COUNT 131 K/uL (130-400); RED BLOOD COUNT 2.61 M/uL (4.2-5.4); WHITE BLOOD COUNT 6.77 K/uL (4.8-10.8)
[2016-11-06] MEDS: HEPARIN SOD 5000 UNIT/0.5 ML CARP SQ SCH ×3 (06:00→21:30)
[2016-11-06 06:27] LABS: BUN/CREATININE RATIO 15.3 (10-20); CALCIUM 8.2 mg/dl (8.5-10.1); CREATININE 6.6 mg/dl (0.60-1.20); POTASSIUM 4.9 mmol/L (3.5-5.1)
[2016-11-06] MEDS: ONDANSETRON INJ 2 MG/ML 2 ML VIAL IV PRN (07:18)
[2016-11-06 07:58] VITALS: BP 123/59; PULSE 80; TEMP 37; O2SAT 98
[2016-11-06] MEDS: PANTOprazole SOD 40 MG TAB PO SCH (08:15)
[2016-11-06] MEDS: RASPBERRY SYRUP 5 ML UDP PO SCH (08:15)
[2016-11-06] MEDS: VANCOMYCIN HCL 125 MG/2.5ML SOLN PO SCH (08:15)
[2016-11-06] MEDS: CHOLECALCIFEROL 1000 INTER.UNIT TAB PO SCH (08:16)
[2016-11-06] MEDS ORDERED: SODIUM BICARBONATE 650 MG TAB PO SCH (09:00)
[2016-11-06] MEDS ORDERED: CEROVITE ADV FORMULA TAB PO SCH (09:00)
[2016-11-06] MEDS: NYSTATIN POWDER 15GM BTL EXT SCH ×2 (09:00→21:25)
--- NOTE | 2016-11-06 09:51 | Nephrology Progress Note ---
Nephrology Progress Note Date of Service November 06, 2016. Chief Complaint Acute on chronic renal insufficiency Subjective No acute events overnight. Tiana was seen and evaluated with her caregiver at the bedside. No fevers or chills. Tiana reports improved strength this morning. She has chronic nausea each morning and this does improve with Zofran. Appetite has improved since yesterday. She was able to eat some toast for breakfast. She denied any shortness of breath. Tiana emotionally and adamantly reiterated that she does not want dialysis. She expressed this by repeatedly stating "I do not want dialysis." I explained that I did not think dialysis would be appropriate part of the care plan at this time. H&H dropped overnight with fluids and reported blood in stool. Review of Systems A complete review of systems was performed. Pertinent positives are noted above. All other systems are negative. Vital Signs Last 8 Hrs Date Time Temp Pulse Resp B/P Pulse Ox O2 Delivery O2 Flow Rate FiO2 11/06/16 07:58 37.0 80 18 123/59 98 Nasal Cannula 2.0 11/06/16 04:00 Nasal Cannula 2.0 11/06/16 04:00 36.7 88 19 124/61 99 Nasal Cannula 2.0 I & O 24-Hour Column 11/06/16 07:59 Intake Total 1338 ml Output Total 650 ml Balance 688 ml Last Recorded Weight Weight (Kilograms): 63.500 Physical Exam General Appearance: + pertinent finding (Weak, no acute distress) Head: normocephalic, atraumatic Eyes: normal inspection, sclerae normal ENT: hearing grossly normal, pharynx normal, + pertinent finding (oral mucosa slightly dry) Neck: supple, no JVD Respiratory/Chest: lungs clear, + pertinent finding (patient would only allow auscultation anteriorly) Cardiovascular: regular rate, rhythm, no gallop Abdomen/GI: non tender, soft Genitourinary - Female: + pertinent finding (Nam draining turbid urine) Extremities/Musculoskelatal: normal inspection, no pedal edema, + pertinent finding (RUE PICC) Neurologic/Psych: alert, + depressed affect Family History Diabetes mellitus Other cardiovascular diseases Stroke Social History Smoking Status: Never smoker Alcohol Use: none Drug Use: none Marital Status: Housing Status: lives with significant other 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 Laboratory Results Past 24 Hours 11/06/16 05:12 11/05/16 16:43 11/06/16 05:12 Test 11/05/16 16:43 11/06/16 05:12 Anion Gap 9.0 mmol/L (3-11) 8.0 mmol/L (3-11) Est Creatinine Clear Calc Drug Dose 5.3 ml/min 5.6 ml/min Estimated GFR () 5.7 6.2 Estimated GFR (Non- 5.0 5.3 BUN/Creatinine Ratio 15.7 (10-20) 15.3 (10-20) Calcium Level 8.9 mg/dl (8.5-10.1) 8.2 mg/dl (8.5-10.1) Phosphorus Level 5.1 mg/dl (2.5-4.9) Albumin 2.9 gm/dl (3.4-5.0) Red Blood Count 2.61 M/uL (4.2-5.4) Mean Corpuscular Volume 97.7 fL (80-100) Mean Corpuscular Hemoglobin 30.7 pg (25-34) Mean Corpuscular Hemoglobin Concent 31.4 g/dl (32-36) RDW Standard Deviation 54.7 fL (36.4-46.3) RDW Coefficient of Variation 15.4 % (11.5-14.5) Mean Platelet Volume 9.0 fL (7.4-10.4) Allergies Coded Allergies: Sulfa Antibiotics (Verified Allergy, Intermediate, BODY SWELLING,NAUSEA AND VOMITNG, 11/05/16) Penicillins (Verified Allergy, Unknown, Tolerates Primaxin, does NOT tolerate ZOSYN, 11/05/16) PER PCP RECORDS Medications Current Inpatient Medications Medications (Trade) Dose Ordered Sig/[place]ler Route Start Time Stop Time Status Last Admin Dose Admin Heparin Sodium (Porcine) (Heparin Sq 5000 Unit/0.5ml) 5,000 unit Q8 SQ 11/05/16 14:00 12/05/16 13:59 Acetaminophen (Tylenol Tab) 650 mg Q4H PRN PO 11/05/16 10:45 12/05/16 10:44 Ondansetron HCl (Zofran Inj) 4 mg Q6H PRN IV 11/05/16 10:45 12/05/16 10:44 11/06/16 07:18 4 MG Aspirin (Ecotrin Tab) 81 mg QPM PO 11/05/16 21:00 12/05/16 20:59 11/05/16 20:34 81 MG Atorvastatin Calcium (Lipitor Tab) 80 mg QPM PO 11/05/16 21:00 12/05/16 20:59 11/05/16 20:35 80 MG Cholecalciferol (Vitamin D Tab) 1,000 inter.unit DAILY PO 11/06/16 09:00 12/06/16 08:59 11/06/16 08:16 1,000 INTER.UNIT Clopidogrel Bisulfate (plAVix TAB) 75 mg QPM PO 11/05/16 21:00 12/05/16 20:59 11/05/16 20:34 75 MG Lorazepam (Ativan Tab) 0.5 mg Q6H PRN PO 11/05/16 10:45 12/05/16 10:44 Nystatin (Mycostatin Powder) 1 appln BID EXT 11/05/16 21:00 12/05/16 20:59 11/05/16 20:34 1 APPLN Ondansetron HCl (Zofran Odt) 4 mg Q6H PRN PO 11/05/16 10:45 12/05/16 10:44 Pantoprazole Sodium (Protonix Tab) 40 mg QAM PO 11/06/16 09:00 12/06/16 08:59 11/06/16 08:15 40 MG Vancomycin HCl (Vancomycin Oral Soln) 125 mg QAM PO 11/06/16 09:00 11/20/16 08:59 11/06/16 08:15 125 MG Febuxostat (Uloric) 40 mg DAILY@1200 PO 11/05/16 14:00 12/05/16 13:59 Miscellaneous Information (Order Awaiting Action) 1 ea TID N/A 11/05/16 14:00 12/05/16 13:59 Miscellaneous Information 1 ea 1 ea TID N/A 11/05/16 14:00 12/05/16 13:59 11/05/16 14:00 1 EA Ceftriaxone Sodium/Dextrose (Rocephin Inj/ Dextrose Add-[place] 50ML) 50 ml @ 100 mls/hr Q24H IV 11/06/16 11:00 11/16/16 10:59 Lactobacillus Acidophilus (Floranex Tab) 4 tab QPM PO 11/05/16 21:00 12/05/16 20:59 11/05/16 20:34 4 TAB Raspberry 5 ml 5 ml DAILY PO 11/06/16 09:00 11/20/16 08:59 11/06/16 08:15 5 ML Sodium Bicarbonate/ Sterile Water (Sodium Bicarbonate 8.4% Inj/Sterile Water 1000 ml) 1,150 ml @ 100 mls/hr [id number] IV 11/05/16 17:00 12/05/16 16:14 11/06/16 03:55 100 MLS/HR Heparin Sodium (Porcine) (Heparin 10 Unit/ ml 5 ml Flush) 5 ml PRN PRN FLUSH 11/06/16 04:00 12/06/16 03:59 Impression (1) Hyperkalemia (2) Acute kidney injury (3) Acute on chronic renal failure (4) CKD (chronic kidney disease) stage 5, GFR less than 15 ml/min (5) Recurrent UTI (6) Generalized weakness (7) Bilateral hydronephrosis (8) Coronary artery disease (9) Systolic CHF Mrs. Chase presented to with generalized weakness associated with recurrent UTI , renal failure and hyperkalemia. Urine culture growing gram negative rods. Imaging concerning for obstruction as consistent with prior but cannot rule out possible stent dysfunction. It is unclear if any chronic infection with severe cystitis and obstruction of the ureters at the level of the bladder as well as chronic indwelling stents secondary to chronic hydronephrosis with stasis would improve with any intervention but I suspect consideration for stent removal/ exchange may need to be considered in the near future. She refused PCN tubes in the past. She has a recent similar admission with cultures growing Klebsiella UTI as well as prior E coli UTI. I appreciate input from urology regarding this complicated issue. I discussed the seriousness of her current condition with the patient and her in the ED at the time of admission and again yesterday afternoon. We discussed the unfortunately trend in terms of her renal function over time. She has advanced CKD and had previously refused hemodialysis. Based on her baseline comorbidities and advanced debility as well as our conversation I would not consider hemodialysis as part of the care plan. She has shown some response to medical therapy. Potassium improved. Bicarbonate normalized. Volume status acceptable. 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 difficile colitis, ICM w/ LVEF 25%, moderate MR, pulmonary HTN and moderate TR, AICD placement, hypercholesterolemia, chronic respiratory failure requiring ATC 02, obesity (BMI 32), general debilitated condition Recommendations BONNIE: -- Continue HCO3 infusion @ 60 ml/hr -- Repeat metabolic profile this afternoon Hyperkalemia: -- Treated with Kayexalate, HCO3 and insulin -- Repeat assessment this afternoon -- K restrict diet CKD: -- Baseline creatinine 3.4-4.0 -- Medications currently appropriately dosed for renal function Hypertension: -- Blood pressure and volume status currently appropriate Anemia -- Continue to monitor H&H with repeat this afternoon -- Transfusion support as needed if hemoglobin continues to drop -- Hold JOURDAN for now given reported concern for GI blood loss ID: -- UCx gram negative rods Hydronephrosis with indwelling stents and recurrent UTI: -- Urology consult pending
[2016-11-06] MEDS ORDERED: CEFTRIAXONE SOD INJ 1 GM in DEXTROSE 5% ADD-VANTAGE 50ML 50 ML IV SCH (11:00)
[2016-11-06 11:16] VITALS: BP 123/60; PULSE 86; TEMP 36.6; O2SAT 100
[2016-11-06] MEDS: FEBUXOSTAT 40 MG TAB PO SCH (11:52)
[2016-11-06 14:54] LABS: HEMATOCRIT 25.6 % (37-47); MEAN CELL VOLUME 97.7 fL (80-100); MEAN CORPUSCULAR HEMOGLOBIN 31.3 pg (25-34); MEAN PLATELET VOLUME 8.8 fL (7.4-10.4); PLATELET COUNT 134 K/uL (130-400); RED BLOOD COUNT 2.62 M/uL (4.2-5.4); WHITE BLOOD COUNT 7.25 K/uL (4.8-10.8)
[2016-11-06 15:26] LABS: BUN/CREATININE RATIO 15.6 (10-20); CALCIUM 7.7 mg/dl (8.5-10.1); CREATININE 6.4 mg/dl (0.60-1.20)
--- NOTE | 2016-11-06 16:10 | Urology Consultation ---
History General Date of Service: November 06, 2016. Primary Care Physician: José Luis Griffin MD Pt seen a urologist before?: Yes If yes, why?: hydronephrosis, infections History of Present Illness Pt very well known to our service. Unfortunately, she continues to struggle with fluctuating renal function and general illness - she has recently been readmitted after progression of her weakness and dehydration - was moderately hypotensive at home prior to admission - limited PO intake - she is relatively emotional today, and is very upset with the idea of being examined - Cr on arrival was 7.4, has only declined to 6.4 thus far with hydration - CT: thin renal parenchyma, with significant hydronephrosis, extending b/l to the level of the bladder Vital Signs Past 12 Hours Date Time Temp Pulse Resp B/P Pulse Ox O2 Delivery O2 Flow Rate FiO2 11/06/16 12:00 Nasal Cannula 2.0 11/06/16 11:16 36.6 86 20 123/60 100 2.0 11/06/16 08:00 Nasal Cannula 2.0 11/06/16 07:58 37.0 80 18 123/59 98 Nasal Cannula 2.0 11/06/16 14:28 11/06/16 14:28 Test 11/05/16 16:43 11/06/16 14:28 Phosphorus Level 5.1 mg/dl (2.5-4.9) Albumin 2.9 gm/dl (3.4-5.0) Red Blood Count 2.62 M/uL (4.2-5.4) Mean Corpuscular Volume 97.7 fL (80-100) Mean Corpuscular Hemoglobin 31.3 pg (25-34) Mean Corpuscular Hemoglobin Concent 32.0 g/dl (32-36) RDW Standard Deviation 54.9 fL (36.4-46.3) RDW Coefficient of Variation 15.5 % (11.5-14.5) Mean Platelet Volume 8.8 fL (7.4-10.4) Anion Gap 10.0 mmol/L (3-11) Est Creatinine Clear Calc Drug Dose 5.8 ml/min Estimated GFR () 6.4 Estimated GFR (Non- 5.5 BUN/Creatinine Ratio 15.6 (10-20) Calcium Level 7.7 mg/dl (8.5-10.1) Date/Time Source Procedure Growth Status 11/06/16 13:10 Stool C.difficile Toxin B Gene (PCR) - Final No C. difficile toxin B gene detected Complete HPI - UTI Prior UTI History: number of UTI's, frequency of UTI Laboratory Labs were reviewed and are within normal limits unless listed below. Labs are available in the chart and at [facility] Problem List Medical Problems: (1) Acute kidney failure Status: Acute (2) Acute on chronic kidney failure Status: Acute (3) Acute renal failure Status: Acute (4) Altered mental status Status: Acute (5) Altered mental status Status: Acute (6) ARF (acute renal failure) Status: Acute (7) CRD (chronic renal disease) Status: Acute (8) Dehydration Status: Acute (9) Dehydration Status: Acute (10) Fever Status: Acute (11) Hyperkalemia Status: Acute (12) Hyperkalemia Status: Acute (13) Hyperkalemia Status: Acute (14) Hypomagnesemia Status: Acute (15) PICC (peripherally inserted central catheter) in place Status: Acute (16) Pneumonia Status: Acute (17) Renal failure Status: Acute (18) Renal insufficiency Status: Acute (19) Renal insufficiency Status: Acute (20) Sepsis Status: Acute (21) Sepsis Status: Acute (22) Uremia Status: Acute (23) UTI (urinary tract infection) Status: Acute (24) UTI (urinary tract infection) Status: Acute (25) UTI (urinary tract infection) Status: Acute (26) Weakness Status: Acute (27) Weakness Status: Acute (28) Weakness Status: Acute (29) Weakness Status: Acute (30) Weakness Status: Acute Past History anxiety, congestive heart failure, coronary artery disease, GERD, gout, hypertension, myocardial infarction, renal disease, urinary tract infection, other Past Surgical History: appendectomy, cholecystectomy, hysterectomy, tonsillectomy, ureteral stent, other Family History Diabetes mellitus Other cardiovascular diseases Stroke Social History Hx Tobacco Use In Past Year?: No Smoking: non-smoker Alcohol: no current use Drug use: none Marital status: Housing status: lives with significant other Occupation status: retired Immunizations History of Influenza Vaccine: Yes Influenza Vaccine Date: Mar 17, 2010 History of Tetanus Vaccine?: No History of Pneumococcal: No Pneumococcal Date: Jun 06, 2011 History of Hepatitis B Vaccine: No History of MDRO Yes Type of MDRO: other Allergies Coded Allergies: Sulfa Antibiotics (Verified Allergy, Intermediate, BODY SWELLING,NAUSEA AND VOMITNG, 11/05/16) Penicillins (Verified Allergy, Unknown, Tolerates Primaxin, does NOT tolerate ZOSYN, 11/05/16) PER PCP RECORDS Medications Home Medications: Home Meds and Scripts Medications Dose Route/Sig Max Daily Dose Days Date Category Dose Instructions Coreg (Carvedilol) 12.5 Mg Tab 12.5 Mg PO BID 11/05/16 Reported [cranberry tablets] 1 Tab PO QID 10/16/16 Rx ac hs Sodium Bicarbonate 650 Mg Tab 1 Tab PO QAM 09/20/16 Reported Vancomycin (Vancomycin HCl) 125 Mg Cap 125 Mg PO QAM 08/05/16 Reported Vitamin D3 (Cholecalciferol) 1,000 Unit Tab 1 Tab PO DAILY 90 07/13/16 Reported Ativan (Lorazepam) 0.5 Mg Tab 0.5 Mg PO Q6H PRN 04/02/16 Reported Nystop (Nystatin) 45 Appln/15 Gm Powd 1 Dose TOP BID 11/09/15 Reported Probiotic (Probiotic Product) 1 Cap Cap 1 Tab PO QPM 11/09/15 Reported Lotemax (Loteprednol Etabonate) 0.5 % Gel 1 Drop OPB QAM 10/12/15 Reported Clopidogrel (Clopidogrel Bisulfate) 75 Mg Tab 75 Mg PO QPM 10/12/15 Reported WAS NOT INSTRUCTED TO HOLD Pantoprazole Sodium (Pantoprazole) 40 Mg Tab 40 Mg PO QAM 10/12/15 Reported Uloric (Febuxostat) 40 Mg Tab 40 Mg PO NOON 09/03/14 Reported TAKE THIS MEDICATION DAILY WITH LUNCH Centrum Silver Ultra Wome (Multiple Vitamins W/ Minerals) 1 Tab Tab 1 Tab PO QAM 09/03/14 Reported Lipitor (Atorvastatin Calcium) 80 Mg Tab 80 Mg PO QPM 02/24/14 Reported Zofran Odt (Ondansetron HCl) 4 Mg Tab 4 Mg PO Q6H PRN 01/21/14 Reported Aspirin 81 Mg Tab 81 Mg PO QPM 01/21/14 Reported Inpatient Medications: Current Inpatient Medications Medications (Trade) Dose Ordered Sig/Helder Route Start Time Stop Time Status Last Admin Dose Admin Heparin Sodium (Porcine) (Heparin Sq 5000 Unit/0.5ml) 5,000 unit Q8 SQ 11/05/16 14:00 12/05/16 13:59 Acetaminophen (Tylenol Tab) 650 mg Q4H PRN PO 11/05/16 10:45 12/05/16 10:44 Ondansetron HCl (Zofran Inj) 4 mg Q6H PRN IV 11/05/16 10:45 12/05/16 10:44 11/06/16 07:18 4 MG Aspirin (Ecotrin Tab) 81 mg QPM PO 11/05/16 21:00 12/05/16 20:59 11/05/16 20:34 81 MG Atorvastatin Calcium (Lipitor Tab) 80 mg QPM PO 11/05/16 21:00 12/05/16 20:59 11/05/16 20:35 80 MG Cholecalciferol (Vitamin D Tab) 1,000 inter.unit DAILY PO 11/06/16 09:00 12/06/16 08:59 11/06/16 08:16 1,000 INTER.UNIT Clopidogrel Bisulfate (plAVix TAB) 75 mg QPM PO 11/05/16 21:00 12/05/16 20:59 11/05/16 20:34 75 MG Lorazepam (Ativan Tab) 0.5 mg Q6H PRN PO 11/05/16 10:45 12/05/16 10:44 Nystatin (Mycostatin Powder) 1 appln BID EXT 11/05/16 21:00 12/05/16 20:59 11/06/16 09:00 1 APPLN Ondansetron HCl (Zofran Odt) 4 mg Q6H PRN PO 11/05/16 10:45 12/05/16 10:44 Pantoprazole Sodium (Protonix Tab) 40 mg QAM PO 11/06/16 09:00 12/06/16 08:59 11/06/16 08:15 40 MG Vancomycin HCl (Vancomycin Oral Soln) 125 mg QAM PO 11/06/16 09:00 11/20/16 08:59 11/06/16 08:15 125 MG Febuxostat (Uloric) 40 mg DAILY@1200 PO 11/05/16 14:00 12/05/16 13:59 11/06/16 11:52 40 MG Miscellaneous Information (Order Awaiting Action) 1 ea TID N/A 11/05/16 14:00 12/05/16 13:59 Miscellaneous Information 1 ea 1 ea TID N/A 11/05/16 14:00 12/05/16 13:59 11/05/16 14:00 1 EA Ceftriaxone Sodium/Dextrose (Rocephin Inj/ Dextrose Add-[place] 50ML) 50 ml @ 100 mls/hr Q24H IV 11/06/16 11:00 11/16/16 10:59 11/06/16 11:52 100 MLS/HR Lactobacillus Acidophilus (Floranex Tab) 4 tab QPM PO 11/05/16 21:00 12/05/16 20:59 11/05/16 20:34 4 TAB Raspberry 5 ml 5 ml DAILY PO 11/06/16 09:00 11/20/16 08:59 11/06/16 08:15 5 ML Sodium Bicarbonate/ Sterile Water (Sodium Bicarbonate 8.4% Inj/Sterile Water 1000 ml) 1,150 ml @ 60 mls/hr [id number] IV 11/05/16 17:00 12/05/16 16:59 11/06/16 03:55 100 MLS/HR Heparin Sodium (Porcine) (Heparin 10 Unit/ ml 5 ml Flush) 5 ml PRN PRN FLUSH 11/06/16 04:00 12/06/16 03:59 Review of Systems Review of Systems Constitutional: No fever Neurological: + problem reported Gastrointestinal: No abdominal pain Female : + infections, + leaking urine All Other Systems: Reviewed and Negative Physical Exam Vital Signs: Vital Signs Past 12 Hours Date Time Temp Pulse Resp B/P Pulse Ox O2 Delivery O2 Flow Rate FiO2 11/06/16 12:00 Nasal Cannula 2.0 11/06/16 11:16 36.6 86 20 123/60 100 2.0 11/06/16 08:00 Nasal Cannula 2.0 11/06/16 07:58 37.0 80 18 123/59 98 Nasal Cannula 2.0 11/06/16 04:00 Nasal Cannula 2.0 11/06/16 04:00 36.7 88 19 124/61 99 Nasal Cannula 2.0 Physical Exam: General Appearance: no apparent distress (comfortable appearing, but begins to cry at the suggestion of an examination) ENT: hearing grossly normal Neck: no adenopathy Gastrointestinal: Abdomen: normal abdomen (non-tender. no rebound/guarding. no suprapubic fullness or tenderness) Renal: normal renal (no CVA tenderness on the right or the left) Assessment & Plan Assessment & Plan Renal failure; bacteruria; general decline/failure to thrive Renal failure - persistent/progressive hydronephrosis; however, I remain very uncertain that her stents have ever significantly benefited her - at present, I do not feel it will be overly useful to change her stents - we have previously had extensive discussions about percutaneous nephrostomy tubes and she and her were very resistant - she has similarly proclaimed a refusal of dialysis Bacteruia - chronically colonized - I remain somewhat uncertain how much of her acute illness is related to this bacteruria vs her renal function/hydration status - she typically does not manifest fevers or leukocytosis, nor growth from blood cultures - while simple cystitis could contribute to her overall decline, she seems to improve more with IV hydration than with culture appropriate antibiotics Overall, I feel we are at a point where we must frankly consider options for further management. If she and her desire maximal interventions, we should consider referral for perc nephrostomy and pending outcomes/improvement, consideration of dialysis - conversely and, in my opinion, more appropriately, we could consider comfort care/hospice options with the avoidance of further interventions. If the [facility] ultimately decide to consider this option, simple removal of her ureteral stents and observation would be a reasonable consideration - I have expressed my feeling that we should not perform a stent change now, but I have not yet addressed the hospice/comfort care option with them
[2016-11-06 17:09] VITALS: BP 145/70; PULSE 86; TEMP 37.1; O2SAT 93
[2016-11-06] MEDS ORDERED: EPOETIN ALFA 20,000 UNITS/ML VIAL SQ SCH (17:45)
[2016-11-06 19:56] VITALS: BP 123/67; PULSE 94; TEMP 37.6; O2SAT 100
[2016-11-06] MEDS: CLOPIDOGREL BISULFATE 75 MG TAB PO SCH (21:24)
[2016-11-06] MEDS: ATORVASTATIN 40 MG TAB PO SCH (21:24)
[2016-11-06] MEDS: ASPIRIN 81 MG ECTAB PO SCH (21:24)
[2016-11-06] MEDS: LACTOBACILLUS ACIDOPHILUS (FLORANEX) TAB PO SCH (21:25)
--- NOTE | 2016-11-06 21:51 | Progress Note ---
Subjective Date of Service: November 06, 2016. Subjective Pt evaluation today including: conversation w/ patient, conversation w/ family ( at bedside), physical exam, chart review, lab review, review of studies , conversation w/ network consultant (urology), review of inpatient medication list Pain: no abdominal pain; no chest pain PO Intake: very poor Voiding: henriquez catheter in place tele stable overnight continues with low grade fevers she was very tearful and anxious today, stating "I just want to go home" the patient again reiterated today she does NOT want dialysis appetite continues to be poor Problem List Medical Problems: (1) Acute kidney failure Status: Acute (2) Acute on chronic kidney failure Status: Acute (3) Acute renal failure Status: Acute (4) Altered mental status Status: Acute (5) Altered mental status Status: Acute (6) ARF (acute renal failure) Status: Acute (7) CRD (chronic renal disease) Status: Acute (8) Dehydration Status: Acute (9) Dehydration Status: Acute (10) Fever Status: Acute (11) Hyperkalemia Status: Acute (12) Hyperkalemia Status: Acute (13) Hyperkalemia Status: Acute (14) Hypomagnesemia Status: Acute (15) PICC (peripherally inserted central catheter) in place Status: Acute (16) Pneumonia Status: Acute (17) Renal failure Status: Acute (18) Renal insufficiency Status: Acute (19) Renal insufficiency Status: Acute (20) Sepsis Status: Acute (21) Sepsis Status: Acute (22) Uremia Status: Acute (23) UTI (urinary tract infection) Status: Acute (24) UTI (urinary tract infection) Status: Acute (25) UTI (urinary tract infection) Status: Acute (26) Weakness Status: Acute (27) Weakness Status: Acute (28) Weakness Status: Acute (29) Weakness Status: Acute (30) Weakness Status: Acute Review of Systems Constitutional: + fever, No chills Respiratory: No shortness of breath Cardiac: No chest pain, No orthopnea Abdomen: No pain Objective Vital Signs Date Time Temp Pulse Resp B/P Pulse Ox O2 Delivery O2 Flow Rate FiO2 11/06/16 19:56 37.6 94 20 123/67 100 Nasal Cannula 2.0 11/06/16 17:09 37.1 86 26 145/70 93 Nasal Cannula 2.0 11/06/16 16:00 Nasal Cannula 2.0 11/06/16 12:00 Nasal Cannula 2.0 11/06/16 11:16 36.6 86 20 123/60 100 2.0 11/06/16 08:00 Nasal Cannula 2.0 11/06/16 07:58 37.0 80 18 123/59 98 Nasal Cannula 2.0 11/06/16 04:00 Nasal Cannula 2.0 11/06/16 04:00 36.7 88 19 124/61 99 Nasal Cannula 2.0 11/06/16 00:31 Nasal Cannula 2.0 11/06/16 00:00 36.6 64 20 119/61 94 Nasal Cannula 2.0 Physical Exam General Appearance: + mild distress (tearful) ENT: pharynx normal Neck: no JVD Respiratory/Chest: lungs clear, no respiratory distress, no accessory muscle use Cardiovascular: regular rate, rhythm, no gallop, + systolic murmur (2/6 LSB) Abdomen: + pertinent finding (abdominal exam omitted at her request ) Extremities: no pedal edema Neurologic/Psychiatric: alert, + depressed affect Skin: + pallor Laboratory Results Last 24 Hours Test 11/06/16 05:12 11/06/16 14:28 White Blood Count 6.77 K/uL 7.25 K/uL Red Blood Count 2.61 M/uL 2.62 M/uL Hemoglobin 8.0 g/dL 8.2 g/dL Hematocrit 25.5 % 25.6 % Mean Corpuscular Volume 97.7 fL 97.7 fL Mean Corpuscular Hemoglobin 30.7 pg 31.3 pg Mean Corpuscular Hemoglobin Concent 31.4 g/dl 32.0 g/dl RDW Standard Deviation 54.7 fL 54.9 fL RDW Coefficient of Variation 15.4 % 15.5 % Platelet Count 131 K/uL 134 K/uL Mean Platelet Volume 9.0 fL 8.8 fL Sodium Level 146 mmol/L 143 mmol/L Potassium Level 4.9 mmol/L 5.0 mmol/L Chloride Level 112 mmol/L 106 mmol/L Carbon Dioxide Level 26 mmol/L 27 mmol/L Anion Gap 8.0 mmol/L 10.0 mmol/L Blood Urea Nitrogen 103 mg/dl 100 mg/dl Creatinine 6.60 mg/dl 6.40 mg/dl Est Creatinine Clear Calc Drug Dose 5.6 ml/min 5.8 ml/min Estimated GFR () 6.2 6.4 Estimated GFR (Non- 5.3 5.5 BUN/Creatinine Ratio 15.3 15.6 Random Glucose 94 mg/dl 124 mg/dl Calcium Level 8.2 mg/dl 7.7 mg/dl Assessment and Plan 81yo female: 1. acute renal failure (ARF) in setting of progressive stage 5 CKD - ARF minimally improved today s/p fluids/bicarbonate infusion. Prognosis is extremely poor in light of progressive disease. Appreciate nephrology/urology consultations. ARF due to poor oral intake, failure to thrive, etc. End of life discussion needed with patient/ (she is, on average, requiring hospitalization every 3-4 weeks) given that she is at high, high risk of needing HD but patient declining such. 2. GNR UTI - cont rocephin, follow urine cx. 3. h/o UVJ obstruction s/p b/l ureteral stents - stents patent on CT but continues with hydronephrosis/dilated ureters. I was present with the pt/ and Dr. Reeves when the stents were discussed. At this time no plans to replace the stents or pursue percutaneous nephrostomy tubes. 4. chronic systolic CHF - compensated. 5. chronic hypoxic resp failure - stable on home O2 amount. 6. hyperkalemia - 2nd to ARF - resolved s/p bicarb infusion. 7. metabolic acidosis - 2nd to uremia. Improved today. 8. DVT proph - heparin BID (change the dose from q8h due to renal function). 9. CAD - no ischemic symptoms. Tomorrow will need to focus on end-of-life discussion in light of very poor prognosis, worsening failure to thrive, pt's desire to return home, and low chances of renal recovery Consider palliative care consultation Continued [facility] stay due to: multiple IV medications needed Discharge planning: uncertain
[2016-11-07] VITALS (9 sets, daily range): BP systolic 119–152; BP diastolic 63–84; PULSE 78–88; TEMP 36.5–37.5; O2SAT 94–100
[2016-11-07] MEDS: HEPARIN SOD 5000 UNIT/0.5 ML CARP SQ SCH ×2 (02:00→14:00)
[2016-11-07 06:53] LABS: BUN/CREATININE RATIO 15.8 (10-20); CALCIUM 7.5 mg/dl (8.5-10.1); PHOSPHORUS 3.3 mg/dl (2.5-4.9); POTASSIUM 4.2 mmol/L (3.5-5.1)
[2016-11-07] MEDS: ONDANSETRON INJ 2 MG/ML 2 ML VIAL IV PRN ×2 (07:32→16:52)
[2016-11-07] MEDS ORDERED: CIPROFLOXACIN CONSULT ACTIVE PRN ×2 (08:45)
[2016-11-07] MEDS: CHOLECALCIFEROL 1000 INTER.UNIT TAB PO SCH (08:49)
[2016-11-07] MEDS: PANTOprazole SOD 40 MG TAB PO SCH (08:49)
[2016-11-07] MEDS: RASPBERRY SYRUP 5 ML UDP PO SCH (08:50)
[2016-11-07] MEDS: NYSTATIN POWDER 15GM BTL EXT SCH ×2 (08:50→21:00)
[2016-11-07] MEDS: VANCOMYCIN HCL 125 MG/2.5ML SOLN PO SCH (08:54)
--- NOTE | 2016-11-07 10:47 | Nephrology Progress Note ---
Nephrology Progress Note Date of Service November 07, 2016. Chief Complaint Acute on chronic renal insufficiency Subjective No acute events overnight. Tiana states that she is feeling better this morning but was not able to be more specific. She remains weak. Appetite remains poor. She had not yet eaten breakfast due to morning nausea. No fevers. No pain reported. Dr. Porter and I had a long conversation with Tiana and her this morning. We reviewed the recommendations from Dr. Reeves. We have started to discuss overall goals of care given prognosis and limited medical options. Review of Systems A complete review of systems was performed. Pertinent positives are noted above. All other systems are negative. Vital Signs Last 8 Hrs Date Time Temp Pulse Resp B/P Pulse Ox O2 Delivery O2 Flow Rate FiO2 11/07/16 07:41 36.9 85 20 151/74 97 2.0 11/07/16 04:19 37.0 87 20 119/63 96 Nasal Cannula 2.0 11/07/16 04:00 100 Nasal Cannula 2.0 I & O 24-Hour Column 11/07/16 07:59 Intake Total 2037 ml Output Total 1425 ml Balance 612 ml Last Recorded Weight Weight (Kilograms): 65.300 Physical Exam General Appearance: + pertinent finding (Chronically ill appearing, more awake this morning, no acute distress) Eyes: normal inspection, sclerae normal ENT: normal ENT inspection, pharynx normal Neck: supple, no JVD Respiratory/Chest: lungs clear, no respiratory distress, no accessory muscle use Cardiovascular: regular rate, rhythm, no gallop Abdomen/GI: non tender, soft Genitourinary - Female: + pertinent finding (Nam draining yellow urine) Extremities/Musculoskelatal: normal inspection, no pedal edema Neurologic/Psych: alert, oriented x 3 Family History Diabetes mellitus Other cardiovascular diseases Stroke Social History Smoking Status: Never smoker Alcohol Use: none Drug Use: none Marital Status: Housing Status: lives with significant other 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 Laboratory Results Past 24 Hours 11/06/16 14:28 11/07/16 05:45 11/06/16 14:28 11/07/16 05:45 Test 11/06/16 14:28 11/07/16 05:45 Red Blood Count 2.62 M/uL (4.2-5.4) Mean Corpuscular Volume 97.7 fL (80-100) Mean Corpuscular Hemoglobin 31.3 pg (25-34) Mean Corpuscular Hemoglobin Concent 32.0 g/dl (32-36) RDW Standard Deviation 54.9 fL (36.4-46.3) RDW Coefficient of Variation 15.5 % (11.5-14.5) Mean Platelet Volume 8.8 fL (7.4-10.4) Anion Gap 10.0 mmol/L (3-11) 9.0 mmol/L (3-11) Est Creatinine Clear Calc Drug Dose 5.8 ml/min 6.1 ml/min Estimated GFR () 6.4 6.9 Estimated GFR (Non- 5.5 6.0 BUN/Creatinine Ratio 15.6 (10-20) 15.8 (10-20) Calcium Level 7.7 mg/dl (8.5-10.1) 7.5 mg/dl (8.5-10.1) Phosphorus Level 3.3 mg/dl (2.5-4.9) Albumin 2.3 gm/dl (3.4-5.0) Date/Time Source Procedure Growth Status 11/06/16 13:10 Stool C.difficile Toxin B Gene (PCR) - Final No C. difficile toxin B gene detected Complete Allergies Coded Allergies: Sulfa Antibiotics (Verified Allergy, Intermediate, BODY SWELLING,NAUSEA AND VOMITNG, 11/05/16) Penicillins (Verified Allergy, Unknown, Tolerates Primaxin, does NOT tolerate ZOSYN, 11/05/16) PER PCP RECORDS Medications Current Inpatient Medications Medications (Trade) Dose Ordered Sig/Helder Route Start Time Stop Time Status Last Admin Dose Admin Acetaminophen (Tylenol Tab) 650 mg Q4H PRN PO 11/05/16 10:45 12/05/16 10:44 Ondansetron HCl (Zofran Inj) 4 mg Q6H PRN IV 11/05/16 10:45 12/05/16 10:44 11/07/16 07:32 4 MG Aspirin (Ecotrin Tab) 81 mg QPM PO 11/05/16 21:00 12/05/16 20:59 11/06/16 21:24 81 MG Atorvastatin Calcium (Lipitor Tab) 80 mg QPM PO 11/05/16 21:00 12/05/16 20:59 11/06/16 21:24 80 MG Cholecalciferol (Vitamin D Tab) 1,000 inter.unit DAILY PO 11/06/16 09:00 12/06/16 08:59 11/07/16 08:49 1,000 INTER.UNIT Clopidogrel Bisulfate (plAVix TAB) 75 mg QPM PO 11/05/16 21:00 12/05/16 20:59 11/06/16 21:24 75 MG Lorazepam (Ativan Tab) 0.5 mg Q6H PRN PO 11/05/16 10:45 12/05/16 10:44 Nystatin (Mycostatin Powder) 1 appln BID EXT 11/05/16 21:00 12/05/16 20:59 11/07/16 08:50 1 APPLN Ondansetron HCl (Zofran Odt) 4 mg Q6H PRN PO 11/05/16 10:45 12/05/16 10:44 Pantoprazole Sodium (Protonix Tab) 40 mg QAM PO 11/06/16 09:00 12/06/16 08:59 11/07/16 08:49 40 MG Vancomycin HCl (Vancomycin Oral Soln) 125 mg QAM PO 11/06/16 09:00 11/20/16 08:59 11/07/16 08:54 125 MG Febuxostat (Uloric) 40 mg DAILY@1200 PO 11/05/16 14:00 12/05/16 13:59 11/06/16 11:52 40 MG Miscellaneous Information (Order Awaiting Action) 1 ea TID N/A 11/05/16 14:00 12/05/16 13:59 Miscellaneous Information (Order Awaiting Action) 1 ea TID N/A 11/05/16 14:00 12/05/16 13:59 11/05/16 14:00 1 EA Lactobacillus Acidophilus (Floranex Tab) 4 tab QPM PO 11/05/16 21:00 12/05/16 20:59 11/06/16 21:25 4 TAB Raspberry 5 ml 5 ml DAILY PO 11/06/16 09:00 11/20/16 08:59 11/07/16 08:50 5 ML Sodium Bicarbonate/ Sterile Water (Sodium Bicarbonate 8.4% Inj/Sterile Water 1000 ml) 1,150 ml @ 60 mls/hr [id number] IV 11/05/16 17:00 12/05/16 16:59 11/06/16 16:42 60 MLS/HR Heparin Sodium (Porcine) (Heparin 10 Unit/ ml 5 ml Flush) 5 ml PRN PRN FLUSH 11/06/16 04:00 12/06/16 03:59 Heparin Sodium (Porcine) (Heparin Sq 5000 Unit/0.5ml) 5,000 unit Q12H SQ 11/07/16 02:00 12/07/16 01:59 Ciprofloxacin (Consult) 1 ea UD PRN N/A 11/07/16 08:45 12/07/16 08:44 Ciprofloxacin (Ciprofloxacin Tab) 250 mg BID PO 11/07/16 09:00 11/17/16 08:59 Impression (1) Hyperkalemia (2) Acute kidney injury (3) Acute on chronic renal failure (4) CKD (chronic kidney disease) stage 5, GFR less than 15 ml/min (5) Recurrent UTI (6) Generalized weakness (7) Bilateral hydronephrosis (8) Coronary artery disease (9) Systolic CHF Mrs. Chase presented to with generalized weakness associated renal failure and hyperkalemia. Urine culture growing klebsiella. Imaging concerning for obstruction as consistent with prior but cannot rule out possible stent dysfunction. Ureters are dilated to the level of the bladder. Urology is not in favor of any intervention at this time given risks/benefits. Dr. Reeves expressed concern that urine is more consistent with bacteriuria from chronic colonization and cystitis than a true UTI. Tiana and her have refused to consider PCN placement. Given the current situation, the risk of infection remains very high and plan to continue antibiotic therapy remains consistent with overall treatment plan. Certainly, hyperkalemia has responded to medical management. Renal function unfortunately has not significantly improved. We discussed the prognosis associated with ESRD today. Dialysis is not to be considered part of the care plan and this is in accordance with the patient's personal goals of care. We explained the benefits of focusing on palliative treatment. We discussed the poor prognosis and started to introduce a discussion regarding eventual dying process. Mr. Chase reiterated that hospice did not provide any benefit in the past and he does not see any reason to reintroduce a hospice agency. Tiana did express that her primary goal remains to be at home. Potassium acceptable at this time. Volume status appropriate and bicarbonate improved. Will stop IV HCO3 after current infusion complete. 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 difficile colitis, ICM w/ LVEF 25%, moderate MR, pulmonary HTN and moderate TR, AICD placement, hypercholesterolemia, chronic respiratory failure requiring ATC 02, obesity ( BMI 32), general debilitated condition Recommendations BONNIE: -- Stop HCO3 infusion after current bag complete -- Monitor daily metabolic profile while inpatient Hyperkalemia: -- Treated with Kayexalate, HCO3 and insulin -- K restrict diet, as tolerated Klebsiella bacteriuria, chronic colonization, history of UTI, indwelling stents with persistent hydroureteronephrosis: -- No urologic intervention given risks/benefits -- Treatment based on severity of illness and potential complications of infection CKD: -- Life expectancy limited -- Medications currently appropriately dosed for renal function -- Introduced idea of palliative medical management of ESRD Hypertension: -- Blood pressure and volume status currently appropriate Anemia -- No additional signs of GI blood loss -- Epogen [id number] units given 11/06/16
[2016-11-07] MEDS: CIPROFLOXACIN 250 MG TAB PO SCH ×2 (12:00→21:07)
[2016-11-07] MEDS: FEBUXOSTAT 40 MG TAB PO SCH (12:00)
[2016-11-07] MEDS: ASPIRIN 81 MG ECTAB PO SCH (21:07)
[2016-11-07] MEDS: CLOPIDOGREL BISULFATE 75 MG TAB PO SCH (21:07)
[2016-11-07] MEDS: LACTOBACILLUS ACIDOPHILUS (FLORANEX) TAB PO SCH (21:07)
[2016-11-07] MEDS: ATORVASTATIN 40 MG TAB PO SCH (21:07)
--- NOTE | 2016-11-07 21:23 | Progress Note ---
Subjective Date of Service: November 07, 2016. Subjective Pt evaluation today including: conversation w/ patient, conversation w/ family ( at bedside), physical exam, chart review, lab review, conversation w/ campaign consultant (nephrology), review of inpatient medication list Pain: denies any back/abd pain today PO Intake: very poor Voiding: henriquez catheter in place tele w/o dysrhythmia overnight pt feeling poorly - has nausea, achy, no energy or appetite when asked directly if she would want to be re-hospitalized in the future if she were to get ill again she stated NO asks about outpatient IV fluids at their home to prevent dehydration Problem List Medical Problems: (1) Acute kidney failure Status: Acute (2) Acute on chronic kidney failure Status: Acute (3) Acute renal failure Status: Acute (4) Altered mental status Status: Acute (5) Altered mental status Status: Acute (6) ARF (acute renal failure) Status: Acute (7) CRD (chronic renal disease) Status: Acute (8) Dehydration Status: Acute (9) Dehydration Status: Acute (10) Fever Status: Acute (11) Hyperkalemia Status: Acute (12) Hyperkalemia Status: Acute (13) Hyperkalemia Status: Acute (14) Hypomagnesemia Status: Acute (15) PICC (peripherally inserted central catheter) in place Status: Acute (16) Pneumonia Status: Acute (17) Renal failure Status: Acute (18) Renal insufficiency Status: Acute (19) Renal insufficiency Status: Acute (20) Sepsis Status: Acute (21) Sepsis Status: Acute (22) Uremia Status: Acute (23) UTI (urinary tract infection) Status: Acute (24) UTI (urinary tract infection) Status: Acute (25) UTI (urinary tract infection) Status: Acute (26) Weakness Status: Acute (27) Weakness Status: Acute (28) Weakness Status: Acute (29) Weakness Status: Acute (30) Weakness Status: Acute Review of Systems Constitutional: + fatigue, No chills, No fever Respiratory: No dyspnea at rest, No shortness of breath Cardiac: No chest pain, No orthopnea Abdomen: + nausea, No pain, No vomiting Objective Vital Signs Date Time Temp Pulse Resp B/P Pulse Ox O2 Delivery O2 Flow Rate FiO2 11/07/16 20:01 36.7 80 22 136/78 100 Nasal Cannula 2.0 11/07/16 20:00 Nasal Cannula 2.0 11/07/16 16:00 Nasal Cannula 2.0 11/07/16 15:31 36.5 78 22 146/73 99 Nasal Cannula 2.0 11/07/16 12:00 Nasal Cannula 2.0 11/07/16 11:30 36.9 80 18 136/71 94 2.0 11/07/16 08:00 Nasal Cannula 2.0 11/07/16 07:41 36.9 85 20 151/74 97 2.0 11/07/16 04:19 37.0 87 20 119/63 96 Nasal Cannula 2.0 11/07/16 04:00 100 Nasal Cannula 2.0 11/07/16 00:04 37.5 88 22 135/66 98 Nasal Cannula 2.0 11/07/16 00:01 100 Nasal Cannula 2.0 Physical Exam General Appearance: no apparent distress ENT: pharynx normal Neck: no JVD Respiratory/Chest: lungs clear, no respiratory distress, no accessory muscle use Cardiovascular: regular rate, rhythm, no gallop, + systolic murmur (1/6 CHANELL LSB ) Abdomen: normal bowel sounds, non tender, soft, no organomegaly Extremities: no pedal edema Neurologic/Psychiatric: alert Skin: + pallor Laboratory Results Last 24 Hours Test 11/07/16 05:45 Hemoglobin 7.9 g/dL Sodium Level 145 mmol/L Potassium Level 4.2 mmol/L Chloride Level 105 mmol/L Carbon Dioxide Level 31 mmol/L Anion Gap 9.0 mmol/L Blood Urea Nitrogen 95 mg/dl Creatinine 6.00 mg/dl Est Creatinine Clear Calc Drug Dose 6.1 ml/min Estimated GFR () 6.9 Estimated GFR (Non- 6.0 BUN/Creatinine Ratio 15.8 Random Glucose 101 mg/dl Calcium Level 7.5 mg/dl Phosphorus Level 3.3 mg/dl Albumin 2.3 gm/dl Assessment and Plan 81yo female: 1. acute renal failure (ARF) in setting of progressive stage 5 CKD - ARF minimally improved today s/p fluids/bicarbonate infusion. IVF to be d/c by nephrology today. Prognosis is extremely poor in light of progressive disease. Appreciate nephrology/urology consultations. ARF due to poor oral intake, failure to thrive, etc. End of life discussions were started today with Dr. Fisher. Repeat BMP in am. 2. klebsiella UTI - stop rocephin; convert to PO cipro (renally dosed). Plan 14-day course of abx in total. 3. h/o UVJ obstruction s/p b/l ureteral stents - stents patent on CT but continues with hydronephrosis/dilated ureters. At this time no plans to replace the stents or pursue percutaneous nephrostomy tubes. 4. chronic systolic CHF - compensated. 5. chronic hypoxic resp failure - stable on home O2 amount. 6. hyperkalemia - resolved. 7. metabolic acidosis - 2nd to uremia. Improved s/p bicarbonate infusion. 8. DVT proph - heparin BID. 9. CAD - no ischemic symptoms. Dr. Fisher and I had a lengthy discussion today with Mr/Mrs Chase about her current condition, frequent hospitalizations, worsening CKD stage 5, recurrent UTIs, worsening quality of life / failure to thrive, high likelihood of recurrent hospitalizations, etc. At this time there are no plans for HD at Mrs. Chase's request and she voiced today, when asked directly, that she would probably not want to continue in the current trend of recurrent hospitalizations. Will discuss these challenging issues again tomorrow; strongly consider formal palliative care consult if pt's is agreeable to such. time - 50 minutes in total Continued [facility] stay due to: multiple IV medications needed Discharge planning: uncertain
[2016-11-08] VITALS (7 sets, daily range): BP systolic 132–158; BP diastolic 75–102; PULSE 82–89; TEMP 36.6–37.3; O2SAT 98–100
[2016-11-08] MEDS: HEPARIN SOD 5000 UNIT/0.5 ML CARP SQ SCH ×2 (00:29→14:00)
[2016-11-08] MEDS: ONDANSETRON INJ 2 MG/ML 2 ML VIAL IV PRN ×2 (00:46→07:16)
[2016-11-08 06:14] LABS: HEMATOCRIT 27.9 % (37-47); MEAN CELL VOLUME 98.9 fL (80-100); MEAN CORPUSCULAR HEMOGLOBIN 30.5 pg (25-34); MEAN CORPUSCULAR HGB CONC 30.8 g/dl (32-36); PLATELET COUNT 154 K/uL (130-400); RED BLOOD COUNT 2.82 M/uL (4.2-5.4); WHITE BLOOD COUNT 8.55 K/uL (4.8-10.8)
[2016-11-08 06:58] LABS: BUN/CREATININE RATIO 15.1 (10-20); CALCIUM 7.6 mg/dl (8.5-10.1); CREATININE 5.7 mg/dl (0.60-1.20); PHOSPHORUS 4.8 mg/dl (2.5-4.9); POTASSIUM 4.5 mmol/L (3.5-5.1)
[2016-11-08] MEDS: CIPROFLOXACIN 250 MG TAB PO SCH ×2 (09:23→21:31)
[2016-11-08] MEDS: PANTOprazole SOD 40 MG TAB PO SCH (09:23)
[2016-11-08] MEDS: RASPBERRY SYRUP 5 ML UDP PO SCH (09:24)
[2016-11-08] MEDS: CHOLECALCIFEROL 1000 INTER.UNIT TAB PO SCH (09:24)
[2016-11-08] MEDS: VANCOMYCIN HCL 125 MG/2.5ML SOLN PO SCH (09:25)
--- NOTE | 2016-11-08 09:46 | Nephrology Progress Note ---
Nephrology Progress Note Date of Service November 08, 2016. Chief Complaint Acute on chronic renal insufficiency Subjective No acute events overnight. Tiana is feeling much better this morning. She is more alert. Appetite has improved. Nausea persists. Unfortunately, she vomited after breakfast. She believes that this was due to eating too much at once. She denies any abdominal pain. No melena or hematochezia. No fevers or chills. Mr. Chase expressed that he is hopeful that she can return home in the next couple of days. He reiterated that she is resilient and has shown remarkable recovery in the past. He continues to state that he does not see the role for hospice care and reiterate that he can provide as close care and attention has she needs at home. He feels that recurrent UTI are responsible for her recurrent admissions and remains hopeful that she can maintain current health and quality of life if infections can be controlled. Review of Systems A complete review of systems was performed. Pertinent positives are noted above. All other systems are negative. Vital Signs Last 8 Hrs Date Time Temp Pulse Resp B/P Pulse Ox O2 Delivery O2 Flow Rate FiO2 11/08/16 07:47 36.6 86 20 139/102 99 2.0 11/08/16 04:22 37.3 83 18 158/75 99 Nasal Cannula 2.0 11/08/16 04:00 Nasal Cannula 2.0 I & O 24-Hour Column 11/08/16 08:00 Intake Total 300 ml Output Total 1900 ml Balance -1600 ml Last Recorded Weight Weight (Kilograms): 61.600 Physical Exam General Appearance: no apparent distress, + pertinent finding (chronically ill appearing) Head: normocephalic, atraumatic Eyes: sclerae normal, + pertinent finding (Disconjugate gaze) ENT: normal ENT inspection, pharynx normal Neck: supple, no JVD Respiratory/Chest: lungs clear, no respiratory distress, no accessory muscle use Cardiovascular: regular rate, rhythm, no gallop Abdomen/GI: non tender, soft Genitourinary - Female: + pertinent finding (Nam draining yellow urine) Extremities/Musculoskelatal: normal inspection, no pedal edema Neurologic/Psych: alert, normal mood/affect Family History Diabetes mellitus Other cardiovascular diseases Stroke Social History Smoking Status: Never smoker Alcohol Use: none Drug Use: none Marital Status: Housing Status: lives with significant other 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 [employer] Results Past 24 Hours 11/08/16 05:10 11/08/16 05:10 Test 11/08/16 05:10 Red Blood Count 2.82 M/uL (4.2-5.4) Mean Corpuscular Volume 98.9 fL (80-100) Mean Corpuscular Hemoglobin 30.5 pg (25-34) Mean Corpuscular Hemoglobin Concent 30.8 g/dl (32-36) RDW Standard Deviation 54.7 fL (36.4-46.3) RDW Coefficient of Variation 14.9 % (11.5-14.5) Mean Platelet Volume 9.0 fL (7.4-10.4) Anion Gap 10.0 mmol/L (3-11) Est Creatinine Clear Calc Drug Dose 6.5 ml/min Estimated GFR () 7.4 Estimated GFR (Non- 6.3 BUN/Creatinine Ratio 15.1 (10-20) Calcium Level 7.6 mg/dl (8.5-10.1) Phosphorus Level 4.8 mg/dl (2.5-4.9) Albumin 2.6 gm/dl (3.4-5.0) Allergies Coded Allergies: Sulfa Antibiotics (Verified Allergy, Intermediate, BODY SWELLING,NAUSEA AND VOMITNG, 11/05/16) Penicillins (Verified Allergy, Unknown, Tolerates Primaxin, does NOT tolerate ZOSYN, 11/05/16) PER PCP RECORDS Medications Current Inpatient Medications Medications (Trade) Dose Ordered Sig/Helder Route Start Time Stop Time Status Last Admin Dose Admin Acetaminophen (Tylenol Tab) 650 mg Q4H PRN PO 11/05/16 10:45 12/05/16 10:44 Ondansetron HCl (Zofran Inj) 4 mg Q6H PRN IV 11/05/16 10:45 12/05/16 10:44 11/08/16 07:16 4 MG Aspirin (Ecotrin Tab) 81 mg QPM PO 11/05/16 21:00 12/05/16 20:59 11/07/16 21:07 81 MG Atorvastatin Calcium (Lipitor Tab) 80 mg QPM PO 11/05/16 21:00 12/05/16 20:59 11/07/16 21:07 80 MG Cholecalciferol (Vitamin D Tab) 1,000 inter.unit DAILY PO 11/06/16 09:00 12/06/16 08:59 11/07/16 08:49 1,000 INTER.UNIT Clopidogrel Bisulfate (plAVix TAB) 75 mg QPM PO 11/05/16 21:00 12/05/16 20:59 11/07/16 21:07 75 MG Lorazepam (Ativan Tab) 0.5 mg Q6H PRN PO 11/05/16 10:45 12/05/16 10:44 11/08/16 03:03 0.5 MG Nystatin (Mycostatin Powder) 1 appln BID EXT 11/05/16 21:00 12/05/16 20:59 11/07/16 08:50 1 APPLN Ondansetron HCl (Zofran Odt) 4 mg Q6H PRN PO 11/05/16 10:45 12/05/16 10:44 Pantoprazole Sodium (Protonix Tab) 40 mg QAM PO 11/06/16 09:00 12/06/16 08:59 11/07/16 08:49 40 MG Vancomycin HCl (Vancomycin Oral Soln) 125 mg QAM PO 11/06/16 09:00 11/20/16 08:59 11/07/16 08:54 125 MG Febuxostat (Uloric) 40 mg DAILY@1200 PO 11/05/16 14:00 12/05/16 13:59 11/07/16 12:00 40 MG Miscellaneous Information (Order Awaiting Action) 1 ea TID N/A 11/05/16 14:00 12/05/16 13:59 Miscellaneous Information (Order Awaiting Action) 1 ea TID N/A 11/05/16 14:00 12/05/16 13:59 11/07/16 21:06 1 EA Lactobacillus Acidophilus (Floranex Tab) 4 tab QPM PO 11/05/16 21:00 12/05/16 20:59 11/07/16 21:07 4 TAB Raspberry (Raspberry Syrup 5ml Cup) 5 ml DAILY PO 11/06/16 09:00 11/20/16 08:59 11/07/16 08:50 5 ML Heparin Sodium (Porcine) (Heparin 10 Unit/ ml 5 ml Flush) 5 ml PRN PRN FLUSH 11/06/16 04:00 12/06/16 03:59 Heparin Sodium (Porcine) (Heparin Sq 5000 Unit/0.5ml) 5,000 unit Q12H SQ 11/07/16 02:00 12/07/16 01:59 Ciprofloxacin (Consult) 1 ea UD PRN N/A 11/07/16 08:45 12/07/16 08:44 Ciprofloxacin (Ciprofloxacin Tab) 250 mg BID PO 11/07/16 09:00 11/17/16 08:59 11/07/16 21:07 250 MG Impression (1) Hyperkalemia (2) Acute kidney injury (3) Acute on chronic renal failure (4) CKD (chronic kidney disease) stage 5, GFR less than 15 ml/min (5) Recurrent UTI (6) Generalized weakness (7) Bilateral hydronephrosis (8) Coronary artery disease (9) Systolic CHF Mrs. Chase presented to with generalized weakness associated renal failure and hyperkalemia. Urine culture growing klebsiella. CT abdomen concerning for obstruction as consistent with prior but cannot rule out possible stent dysfunction. Ureters are dilated to the level of the bladder. Urology is not in favor of any intervention at this time given risks/benefits. Tiana and her have refused to consider PCN placement. She is tolerating renally dosed cipro. Hyperkalemia responded to medical management. We again discussed the prognosis given ESRD today. We discussed appropriate medical management in detail again this morning. At least 30 minutes were spent with the patient and her . Mr. Chase reiterated that hospice did not provide any benefit in the past and he does not see any reason to reintroduce a hospice agency. The primary goal remains to be at home but the patient and her remain optimistic that she can maintain current level of health. I again explained that risk for hyperkalemia and cardiac ventricular arrhythmia remains high. I explained what defibrillation looks like. I encouraged the patient and her to consider turning off the defibrillator but at this time they are not ready to take this step. I suspect it may take a discussion with the baby doctor for this to happen. In the interim, I worry about the potential for recurrent shocks and associated suffering. We will restart a low dose of carvedilol today as blood pressure and heart rate have improved. Volume status appropriate. 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 difficile colitis, ICM w/ LVEF 25%, moderate MR, pulmonary HTN and moderate TR, AICD placement, hypercholesterolemia, chronic respiratory failure requiring ATC 02, obesity ( BMI 32), general debilitated condition Recommendations BONNIE: -- Monitor daily metabolic profile while inpatient -- Remove Nam catheter today Hyperkalemia: -- K restrict diet -- Restart oral HCO3 Klebsiella bacteriuria, chronic colonization, history of UTI, indwelling stents with persistent hydroureteronephrosis: -- No urologic intervention given risks/benefits -- Cipro appropriately renally dosed -- I discussed plan of care with Dr. Porter this morning CKD: -- Medications currently appropriately dosed for renal function -- Introduced idea of palliative medical management of ESRD Hypertension/ICMO: -- Blood pressure and volume status currently appropriate -- Restart carvedilol 12.5 mg twice daily Anemia -- No additional signs of GI blood loss -- Epogen 13169 units given 11/06/16
[2016-11-08] MEDS: SODIUM BICARBONATE 650 MG TAB PO SCH ×2 (13:10→22:06)
[2016-11-08] MEDS: CARVEDILOL 12.5 MG TAB PO SCH ×2 (13:10→22:05)
[2016-11-08] MEDS: FEBUXOSTAT 40 MG TAB PO SCH (13:10)
[2016-11-08] MEDS: NYSTATIN POWDER 15GM BTL EXT SCH ×3 (13:11→21:29)
[2016-11-08] MEDS: ATORVASTATIN 40 MG TAB PO SCH (21:30)
[2016-11-08] MEDS: CLOPIDOGREL BISULFATE 75 MG TAB PO SCH (21:31)
[2016-11-08] MEDS: LACTOBACILLUS ACIDOPHILUS (FLORANEX) TAB PO SCH (21:32)
[2016-11-08] MEDS: ASPIRIN 81 MG ECTAB PO SCH (21:35)
--- NOTE | 2016-11-08 22:14 | Progress Note ---
Subjective Date of Service: November 08, 2016. Subjective Pt evaluation today including: conversation w/ patient, conversation w/ family ( at bedside), physical exam, chart review, lab review, conversation w/ market consultant (nephrology Dr Fisher), review of inpatient medication list Pain: denies abd pain PO Intake: improved today Voiding: henriquez catheter in place tele stable overnight thinks she is doing much better - improved appetite, improved liquid intake, better spirits nausea improved today pt offers no complaints asks when she will be discharged home Problem List Medical Problems: (1) Acute kidney failure Status: Acute (2) Acute on chronic kidney failure Status: Acute (3) Acute renal failure Status: Acute (4) Altered mental status Status: Acute (5) Altered mental status Status: Acute (6) ARF (acute renal failure) Status: Acute (7) CRD (chronic renal disease) Status: Acute (8) Dehydration Status: Acute (9) Dehydration Status: Acute (10) Fever Status: Acute (11) Hyperkalemia Status: Acute (12) Hyperkalemia Status: Acute (13) Hyperkalemia Status: Acute (14) Hypomagnesemia Status: Acute (15) PICC (peripherally inserted central catheter) in place Status: Acute (16) Pneumonia Status: Acute (17) Renal failure Status: Acute (18) Renal insufficiency Status: Acute (19) Renal insufficiency Status: Acute (20) Sepsis Status: Acute (21) Sepsis Status: Acute (22) Uremia Status: Acute (23) UTI (urinary tract infection) Status: Acute (24) UTI (urinary tract infection) Status: Acute (25) UTI (urinary tract infection) Status: Acute (26) Weakness Status: Acute (27) Weakness Status: Acute (28) Weakness Status: Acute (29) Weakness Status: Acute (30) Weakness Status: Acute Review of Systems Constitutional: No chills, No fever Respiratory: No dyspnea at rest, No shortness of breath Cardiac: No chest pain, No orthopnea Abdomen: No nausea, No pain, No vomiting Objective Vital Signs Date Time Temp Pulse Resp B/P Pulse Ox O2 Delivery O2 Flow Rate FiO2 11/08/16 18:13 36.7 85 18 100 4.0 11/08/16 18:07 Nasal Cannula 2.0 11/08/16 17:29 85 18 151/85 100 Room Air 11/08/16 16:25 36.7 82 18 132/78 99 Nasal Cannula 4.0 11/08/16 16:00 Nasal Cannula 2.0 11/08/16 12:00 Nasal Cannula 2.0 11/08/16 11:29 36.7 89 20 142/88 98 2.0 11/08/16 08:00 Nasal Cannula 2.0 11/08/16 07:47 36.6 86 20 139/102 99 2.0 11/08/16 04:22 37.3 83 18 158/75 99 Nasal Cannula 2.0 11/08/16 04:00 Nasal Cannula 2.0 11/07/16 23:59 Nasal Cannula 2.0 11/07/16 23:55 37.3 84 18 152/84 100 Nasal Cannula 2.0 Physical Exam General Appearance: no apparent distress, + pertinent finding (indeed does look better today with brighter spirits) ENT: pharynx normal Neck: no JVD Respiratory/Chest: lungs clear, no respiratory distress, no accessory muscle use Cardiovascular: regular rate, rhythm, no gallop, no murmur Abdomen: normal bowel sounds, non tender, soft, no organomegaly Extremities: no pedal edema Neurologic/Psychiatric: alert, oriented x 3 Skin: + pertinent finding (right arm PICC clean ) Laboratory Results Last 24 Hours Test 11/08/16 05:10 White Blood Count 8.55 K/uL Red Blood Count 2.82 M/uL Hemoglobin 8.6 g/dL Hematocrit 27.9 % Mean Corpuscular Volume 98.9 fL Mean Corpuscular Hemoglobin 30.5 pg Mean Corpuscular Hemoglobin Concent 30.8 g/dl RDW Standard Deviation 54.7 fL RDW Coefficient of Variation 14.9 % Platelet Count 154 K/uL Mean Platelet Volume 9.0 fL Sodium Level 144 mmol/L Potassium Level 4.5 mmol/L Chloride Level 105 mmol/L Carbon Dioxide Level 29 mmol/L Anion Gap 10.0 mmol/L Blood Urea Nitrogen 86 mg/dl Creatinine 5.70 mg/dl Est Creatinine Clear Calc Drug Dose 6.5 ml/min Estimated GFR () 7.4 Estimated GFR (Non- 6.3 BUN/Creatinine Ratio 15.1 Random Glucose 84 mg/dl Calcium Level 7.6 mg/dl Phosphorus Level 4.8 mg/dl Albumin 2.6 gm/dl Assessment and Plan 81yo female: 1. acute renal failure (ARF) in setting of progressive stage 5 CKD - ARF improved but Cr certainly not back to baseline. Prognosis is extremely poor in light of progressive disease. Appreciate nephrology/urology consultations. ARF was due to poor oral intake, failure to thrive, etc. Obstructive disease felt to be less likely. Patient has stated consistently she would NOT want hemodialysis. Repeat BMP in am. 2. klebsiella UTI - day #07/31 oral cipro. Check EKG in am to ensure QTc interval is stable. 3. h/o UVJ obstruction s/p b/l ureteral stents - stents patent on CT but continues with hydronephrosis/dilated ureters. At this time no plans to replace the stents or pursue percutaneous nephrostomy tubes. 4. chronic systolic CHF - compensated. Continue BB. 5. chronic hypoxic resp failure - stable on home O2 amount. 6. hyperkalemia - resolved. 7. metabolic acidosis - 2nd to uremia. Improved s/p bicarbonate infusion. Cont oral bicarb replacement. 8. DVT proph - heparin BID. 9. CAD - no ischemic symptoms at this time. 10. severe deconditioning/failure to thrive/progressing CKD stage 5 - end of life discussions held 11/07/16 not receptive to such, and difficult to guage what Mrs Chase wants - but the little she says would suggest she would want to remain at home comfortably will readdress tomorrow with patient and her ok to d/c tele move to med/surg Discharge planning: home
[2016-11-09] MEDS: HEPARIN SOD 5000 UNIT/0.5 ML CARP SQ SCH ×2 (01:30→14:00)
[2016-11-09] MEDS: ONDANSETRON INJ 2 MG/ML 2 ML VIAL IV PRN (06:36)
[2016-11-09 06:56] LABS: BUN/CREATININE RATIO 14.3 (10-20); CALCIUM 7.6 mg/dl (8.5-10.1); CREATININE 6.1 mg/dl (0.60-1.20); PHOSPHORUS 4.9 mg/dl (2.5-4.9); POTASSIUM 4.3 mmol/L (3.5-5.1)
[2016-11-09 07:47] VITALS: BP 157/83; PULSE 79; TEMP 36.9; O2SAT 98
[2016-11-09] MEDS: CIPROFLOXACIN 250 MG TAB PO SCH (08:25)
[2016-11-09] MEDS: CHOLECALCIFEROL 1000 INTER.UNIT TAB PO SCH (08:26)
[2016-11-09] MEDS: PANTOprazole SOD 40 MG TAB PO SCH (08:26)
[2016-11-09] MEDS: NYSTATIN POWDER 15GM BTL EXT SCH ×2 (08:26→20:28)
[2016-11-09] MEDS: RASPBERRY SYRUP 5 ML UDP PO SCH (10:48)
[2016-11-09] MEDS: VANCOMYCIN HCL 125 MG/2.5ML SOLN PO SCH (10:48)
[2016-11-09] MEDS: CARVEDILOL 12.5 MG TAB PO SCH ×2 (10:48→20:27)
[2016-11-09] MEDS: SODIUM BICARBONATE 650 MG TAB PO SCH ×2 (10:48→20:27)
--- NOTE | 2016-11-09 11:52 | Nephrology Progress Note ---
Nephrology Progress Note Date of Service November 09, 2016. Chief Complaint Acute on chronic renal insufficiency Subjective Dr. Porter and I had another conversation with the patient this morning regarding goals of care. The patient's caregiver was present. Approximately 35 minutes was spent in direct conversation regarding prognosis and planning for future needs. She is more tired today. Appetite was poor this morning. Tiana is understanding regarding the advanced nature of her illness. She appreciates the ability to rest. She was emotional at times. She expressed a desire to be at home and stated that she would prefer to spend her remaining time at home and at home. We elaborated on considerations regarding her defibrillator and any escalation of care which may seem inappropriate given her multiple advanced medical comorbidities. She would like to outline a plan of care and goals of care with a hospice agency or the palliative care team at the hospital. When I asked her if she wanted us to contact any other family members such as her children to be involved in forming a care plan, she declined. She would like to speak with her canal boat captain. Review of Systems A complete review of systems was performed. Pertinent positives are noted above. All other systems are negative. Vital Signs Last 8 Hrs Date Time Temp Pulse Resp B/P Pulse Ox O2 Delivery O2 Flow Rate FiO2 11/09/16 10:29 Nasal Cannula 2.0 11/09/16 07:47 36.9 79 16 157/83 98 1.0 I & O 24-Hour Column 11/09/16 07:59 Intake Total 240 ml Output Total 425 ml Balance -185 ml Last Recorded Weight Weight (Kilograms): 62.200 Physical Exam General Appearance: no apparent distress, + pertinent finding (elderly and chronically ill appearing) Head: normocephalic, atraumatic Eyes: normal inspection, sclerae normal ENT: normal ENT inspection, pharynx normal Neck: supple, no JVD Respiratory/Chest: + pertinent finding (deffered for patient request) Cardiovascular: + pertinent finding (deferred for patient comfort) Abdomen/GI: + pertinent finding (deferred ) Neurologic/Psych: alert, + pertinent finding (oriented and appropriately emotional) Family History Diabetes mellitus Other cardiovascular diseases Stroke Social History Smoking Status: Never smoker Alcohol Use: none Drug Use: none Marital Status: Housing Status: lives with significant other 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 Laboratory Results Past 24 Hours 11/09/16 05:15 Test 11/09/16 05:15 Anion Gap 10.0 mmol/L (3-11) Est Creatinine Clear Calc Drug Dose 6.0 ml/min Estimated GFR () 6.8 Estimated GFR (Non- 5.8 BUN/Creatinine Ratio 14.3 (10-20) Calcium Level 7.6 mg/dl (8.5-10.1) Phosphorus Level 4.9 mg/dl (2.5-4.9) Albumin 2.7 gm/dl (3.4-5.0) Allergies Coded Allergies: Sulfa Antibiotics (Verified Allergy, Intermediate, BODY SWELLING,NAUSEA AND VOMITNG, 11/05/16) Penicillins (Verified Allergy, Unknown, Tolerates Primaxin, does NOT tolerate ZOSYN, 11/05/16) PER PCP RECORDS Medications Current Inpatient Medications Medications (Trade) Dose Ordered Sig/Helder Route Start Time Stop Time Status Last Admin Dose Admin Acetaminophen (Tylenol Tab) 650 mg Q4H PRN PO 11/05/16 10:45 12/05/16 10:44 Ondansetron HCl (Zofran Inj) 4 mg Q6H PRN IV 11/05/16 10:45 12/05/16 10:44 11/09/16 06:36 4 MG Aspirin (Ecotrin Tab) 81 mg QPM PO 11/05/16 21:00 12/05/16 20:59 11/08/16 21:35 81 MG Atorvastatin Calcium (Lipitor Tab) 80 mg QPM PO 11/05/16 21:00 12/05/16 20:59 11/08/16 21:30 80 MG Cholecalciferol (Vitamin D Tab) 1,000 inter.unit DAILY PO 11/06/16 09:00 12/06/16 08:59 11/09/16 08:26 1,000 INTER.UNIT Clopidogrel Bisulfate (plAVix TAB) 75 mg QPM PO 11/05/16 21:00 12/05/16 20:59 11/08/16 21:31 75 MG Lorazepam (Ativan Tab) 0.5 mg Q6H PRN PO 11/05/16 10:45 12/05/16 10:44 11/08/16 03:03 0.5 MG Nystatin (Mycostatin Powder) 1 appln BID EXT 11/05/16 21:00 12/05/16 20:59 11/09/16 08:26 1 APPLN Ondansetron HCl (Zofran Odt) 4 mg Q6H PRN PO 11/05/16 10:45 12/05/16 10:44 Pantoprazole Sodium (Protonix Tab) 40 mg QAM PO 11/06/16 09:00 12/06/16 08:59 11/09/16 08:26 40 MG Vancomycin HCl (Vancomycin Oral Soln) 125 mg QAM PO 11/06/16 09:00 11/20/16 08:59 11/09/16 10:48 125 MG Febuxostat (Uloric) 40 mg DAILY@1200 PO 11/05/16 14:00 12/05/16 13:59 11/08/16 13:10 40 MG Miscellaneous Information (Order Awaiting Action) 1 ea TID N/A 11/05/16 14:00 12/05/16 13:59 Miscellaneous Information (Order Awaiting Action) 1 ea TID N/A 11/05/16 14:00 12/05/16 13:59 11/07/16 21:06 1 EA Lactobacillus Acidophilus (Floranex Tab) 4 tab QPM PO 11/05/16 21:00 12/05/16 20:59 11/08/16 21:32 4 TAB Raspberry (Raspberry Syrup 5ml Cup) 5 ml DAILY PO 11/06/16 09:00 11/20/16 08:59 11/09/16 10:48 5 ML Heparin Sodium (Porcine) (Heparin 10 Unit/ ml 5 ml Flush) 5 ml PRN PRN FLUSH 11/06/16 04:00 12/06/16 03:59 11/09/16 05:13 5 ML Heparin Sodium (Porcine) (Heparin Sq 5000 Unit/0.5ml) 5,000 unit Q12H SQ 11/07/16 02:00 12/07/16 01:59 Ciprofloxacin (Consult) 1 ea UD PRN N/A 11/07/16 08:45 12/07/16 08:44 Ciprofloxacin (Ciprofloxacin Tab) 250 mg BID PO 11/07/16 09:00 11/17/16 08:59 11/09/16 08:25 250 MG Sodium Bicarbonate (Sodium Bicarbonate Tab) 650 mg BID PO 11/08/16 11:00 12/08/16 10:59 11/09/16 10:48 650 MG Carvedilol (Coreg Tab) 12.5 mg BID PO 11/08/16 11:00 12/08/16 10:59 11/09/16 10:48 12.5 MG Impression (1) Hyperkalemia (2) Acute kidney injury (3) Acute on chronic renal failure (4) CKD (chronic kidney disease) stage 5, GFR less than 15 ml/min (5) Recurrent UTI (6) Generalized weakness (7) Bilateral hydronephrosis (8) Coronary artery disease (9) Systolic CHF Mrs. Chase was admitted with generalized weakness in the setting of advanced renal failure and hyperkalemia. Urine culture growing klebsiella. She was started on cipro but unfortunately QTc was slightly prolonged this morning. Urology declined any additional interventions given risks/benefits. Hyperkalemia responded to medical management. Renal function has not shown any evidence of improvement. The primary goal remains to be at home. Mrs. Chase would like to continue advanced care planning with a hospice/palliative care team. This conversation will involve her and she would like to discuss aspects with her canal boat captain. She asked that her children not be involved at this time. She is aware of the high risk of ventricular arrhythmia given her renal failure, electrolyte abnormalities including history of hyperkalemia and EKG changes. We discussed what repeated shocks from her defibrillator may look like in the situation of a ventricular arrhythmia and the fact that defibrillation would not treat the underlying condition. She is understanding of the terminal nature of her condition including renal failure, advanced cardiovascular disease and complicated urologic issues. She does appear to be tolerating a low dose of carvedilol. 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 difficile colitis, ICM w/ LVEF 25%, moderate MR, pulmonary HTN and moderate TR, AICD placement, hypercholesterolemia, chronic respiratory failure requiring ATC 02, obesity ( BMI 32), general debilitated condition Recommendations Hyperkalemia: -- K restrict diet -- Continue oral HCO3 -- Monitor metabolic profile while inpatient Klebsiella bacteriuria, chronic colonization, history of UTI, indwelling stents with persistent hydroureteronephrosis: -- Antibiotic therapy to be discussed with ID -- I discussed plan of care with Dr. Porter this morning ESRD: -- Medications currently appropriately dosed for renal function -- Life expectancy limited and discussion regarding end of life planning initiated -- Patient agreeable to discuss with palliative care/hospice Hypertension/ICMO: -- Continue carvedilol 12.5 mg twice daily Anemia -- No additional signs of GI blood loss -- Epogen 47780 units given 11/06/16
[2016-11-09] MEDS: FEBUXOSTAT 40 MG TAB PO SCH (12:22)
[2016-11-09 14:42] VITALS: BP 146/77; PULSE 75; TEMP 37.2; O2SAT 98
[2016-11-09] MEDS ORDERED: [UNRECOGNIZED DRUG - OTHER] PRN (15:45)
[2016-11-09 16:30] VITALS: O2SAT 98
[2016-11-09] MEDS: ERTAPENEM IV 500 MG in SODIUM CHLORIDE 0.9% 50ML 50 ML IV SCH (16:48)
--- NOTE | 2016-11-09 19:44 | Progress Note ---
Subjective Date of Service: November 09, 2016. Subjective Pt evaluation today including: conversation w/ patient, conversation w/ family ( - multiple times today), physical exam, chart review, lab review, conversation w/ banking consultant (ID, nephrology), review of inpatient medication list Pain: denies abd pain, chest pain PO Intake: poor today Voiding: henriquez catheter in place Patient is tired today. Doesn't feel as good as yesterday. Appetite is poor. No emesis or diarrhea. Little energy. Multiple visits today to speak with the patient and/or her . Problem List Medical Problems: (1) Acute kidney failure Status: Acute (2) Acute on chronic kidney failure Status: Acute (3) Acute renal failure Status: Acute (4) Altered mental status Status: Acute (5) Altered mental status Status: Acute (6) ARF (acute renal failure) Status: Acute (7) CRD (chronic renal disease) Status: Acute (8) Dehydration Status: Acute (9) Dehydration Status: Acute (10) Fever Status: Acute (11) Hyperkalemia Status: Acute (12) Hyperkalemia Status: Acute (13) Hyperkalemia Status: Acute (14) Hypomagnesemia Status: Acute (15) PICC (peripherally inserted central catheter) in place Status: Acute (16) Pneumonia Status: Acute (17) Renal failure Status: Acute (18) Renal insufficiency Status: Acute (19) Renal insufficiency Status: Acute (20) Sepsis Status: Acute (21) Sepsis Status: Acute (22) Uremia Status: Acute (23) UTI (urinary tract infection) Status: Acute (24) UTI (urinary tract infection) Status: Acute (25) UTI (urinary tract infection) Status: Acute (26) Weakness Status: Acute (27) Weakness Status: Acute (28) Weakness Status: Acute (29) Weakness Status: Acute (30) Weakness Status: Acute Review of Systems Constitutional: + fatigue, No chills, No fever Respiratory: No cough, No dyspnea on exertion, No shortness of breath, No sputum, No wheezing Cardiac: No chest pain, No orthopnea Abdomen: No diarrhea, No nausea, No pain, No vomiting Objective Vital Signs Date Time Temp Pulse Resp B/P Pulse Ox O2 Delivery O2 Flow Rate FiO2 11/09/16 16:30 98 Nasal Cannula 2.0 11/09/16 14:42 37.2 75 16 146/77 98 2.0 11/09/16 10:29 Nasal Cannula 2.0 11/09/16 07:47 36.9 79 16 157/83 98 1.0 11/09/16 00:55 Nasal Cannula 2.0 11/08/16 23:48 36.6 82 19 147/75 99 Nasal Cannula 2.0 Physical Exam General Appearance: no apparent distress, + pertinent finding (looks more sleepy today than yesterday) ENT: pharynx normal (no thrush, MMM) Neck: no JVD Respiratory/Chest: lungs clear, no respiratory distress, no accessory muscle use Cardiovascular: regular rate, rhythm, no gallop, + systolic murmur (1/6 LSB) Abdomen: normal bowel sounds, non tender, soft, no organomegaly Extremities: no pedal edema Neurologic/Psychiatric: alert, oriented x 3 Skin: + pertinent finding (PICC line RUE clean) Laboratory Results Last 24 Hours Test 11/09/16 05:15 Sodium Level 146 mmol/L Potassium Level 4.3 mmol/L Chloride Level 108 mmol/L Carbon Dioxide Level 28 mmol/L Anion Gap 10.0 mmol/L Blood Urea Nitrogen 87 mg/dl Creatinine 6.10 mg/dl Est Creatinine Clear Calc Drug Dose 6.0 ml/min Estimated GFR () 6.8 Estimated GFR (Non- 5.8 BUN/Creatinine Ratio 14.3 Random Glucose 98 mg/dl Calcium Level 7.6 mg/dl Phosphorus Level 4.9 mg/dl Albumin 2.7 gm/dl Assessment and Plan 81yo female: 1. acute renal failure (ARF) in setting of progressive stage 5 CKD - ARF unchanged today. Prognosis is extremely poor in light of progressive disease. Appreciate nephrology/urology consultations. ARF was due to poor oral intake, failure to thrive, etc. Obstructive disease felt to be less likely. Patient has stated consistently she would NOT want hemodialysis. Repeat BMP in am. 2. klebsiella UTI - unfortunately the EKG today shows worsening QTc. Will d/c cipro, change to IV ertapenem renally dosed. 3. h/o UVJ obstruction s/p b/l ureteral stents - stents patent on CT but continues with hydronephrosis/dilated ureters. At this time no plans to replace the stents or pursue percutaneous nephrostomy tubes. 4. chronic systolic CHF - compensated. Continue BB. 5. chronic hypoxic resp failure - stable on home O2 amount. 6. hyperkalemia - resolved. 7. metabolic acidosis - 2nd to uremia. Improved s/p bicarbonate infusion. Cont oral bicarb replacement. 8. DVT proph - heparin BID. 9. CAD - no ischemic symptoms at this time. Has AICD in place as well. 10. severe deconditioning/failure to thrive/progressing CKD stage 5 - end of life discussions held 11/07/16 and again today met with Ms. Chase this AM and had a lengthy discussion with her and Dr. Fisher we discussed her goals for her care/her desires she consistently stated, much like earlier this week, that she wanted to return home she voiced that she was tired of the frequent hospitalizations I then met one-on-one with Mr. Chase early this afternoon I reviewed with him her labs from this AM; I reviewed with him the details of my conversation with his from the AM Mr Chase voiced that he felt the cipro "wasn't working" for her current UTI and asked that the ertapenem be restarted I then met with Mr Chase at about [address] Griffin from [place] and Dr. Fisher The four of us discussed her worsening status, her poor renal function, etc Dr. Griffin, myself, and Dr. Fisher collectively recommended hospice care at home We reiterated that Mrs Chase has consistently stated this week she was ready to return home and be comfortable At the conclusion of the latter discussion Mr. Chase did seem agreeable to home hospice care will involve SW in the AM to start this process total time today 70 minutes Continued [facility] stay due to: voiding difficulties, ambulation difficulties, multiple IV medications needed Discharge planning: uncertain
[2016-11-09] MEDS: LACTOBACILLUS ACIDOPHILUS (FLORANEX) TAB PO SCH (20:27)
[2016-11-09] MEDS: ASPIRIN 81 MG ECTAB PO SCH (20:27)
[2016-11-09] MEDS: ATORVASTATIN 40 MG TAB PO SCH (20:27)
[2016-11-09] MEDS: CLOPIDOGREL BISULFATE 75 MG TAB PO SCH (20:29)
[2016-11-09 23:51] VITALS: BP 151/80; PULSE 78; TEMP 36.8; O2SAT 99
[2016-11-10] MEDS: HEPARIN SOD 5000 UNIT/0.5 ML CARP SQ SCH ×2 (02:00→12:54)
[2016-11-10 05:54] LABS: HEMATOCRIT 29.3 % (37-47); MEAN CELL VOLUME 99.3 fL (80-100); MEAN CORPUSCULAR HEMOGLOBIN 30.8 pg (25-34); MEAN CORPUSCULAR HGB CONC 31.1 g/dl (32-36); MEAN PLATELET VOLUME 8.8 fL (7.4-10.4); PLATELET COUNT 143 K/uL (130-400); RED BLOOD COUNT 2.95 M/uL (4.2-5.4); WHITE BLOOD COUNT 9.28 K/uL (4.8-10.8)
[2016-11-10 07:02] LABS: BUN/CREATININE RATIO 14.3 (10-20); CALCIUM 7.6 mg/dl (8.5-10.1); CREATININE 5.8 mg/dl (0.60-1.20); PHOSPHORUS 5.2 mg/dl (2.5-4.9); POTASSIUM 4.2 mmol/L (3.5-5.1)
[2016-11-10 07:15] VITALS: BP 163/73; PULSE 96; TEMP 36.5; O2SAT 100
[2016-11-10] MEDS: RASPBERRY SYRUP 5 ML UDP PO SCH (09:25)
[2016-11-10] MEDS: VANCOMYCIN HCL 125 MG/2.5ML SOLN PO SCH (09:25)
[2016-11-10] MEDS: CARVEDILOL 12.5 MG TAB PO SCH ×2 (09:25→21:03)
[2016-11-10] MEDS: PANTOprazole SOD 40 MG TAB PO SCH (09:25)
[2016-11-10] MEDS: SODIUM BICARBONATE 650 MG TAB PO SCH ×2 (09:26→21:03)
[2016-11-10] MEDS: Loteprednol Etabonate (Lotemax) OPB SCH (09:26)
[2016-11-10] MEDS: CHOLECALCIFEROL 1000 INTER.UNIT TAB PO SCH (09:26)
[2016-11-10] MEDS: NYSTATIN POWDER 15GM BTL EXT SCH ×2 (09:27→21:04)
--- NOTE | 2016-11-10 12:16 | Nephrology Progress Note ---
Nephrology Progress Note Date of Service November 10, 2016. Chief Complaint Acute on chronic renal insufficiency Subjective No acute events overnight. Tiana feels well this morning. She denied any acute complaints. Appetite fair this morning. Following out conversation yesterday evening with Dr. Griffin and Dr. Porter, Mr. Chase stated that he is planning on returning home with hospice. There is no plan to turn off the defibrillator at this time. Mr. Chase remains hopeful that Tiana will respond to a change in antibiotics and see overall improvement with treatment of possible infection. His primary goal is to have Tiana feeling as well as possible for when their daughter comes from [place] to visit in early November. Review of Systems A complete review of systems was performed. Pertinent positives are noted above. All other systems are negative. Vital Signs Last 8 Hrs Date Time Temp Pulse Resp B/P Pulse Ox O2 Delivery O2 Flow Rate FiO2 11/10/16 09:30 Nasal Cannula 2.0 11/10/16 07:15 36.5 96 20 163/73 100 Nasal Cannula 2.0 I & O 24-Hour Column 11/10/16 08:00 Output Total 25 ml Balance -25 ml Last Recorded Weight Weight (Kilograms): 62.200 Physical Exam General Appearance: no apparent distress Head: normocephalic, atraumatic Eyes: normal inspection, sclerae normal ENT: + pertinent finding (oral mucosa slightly dry) Respiratory/Chest: + pertinent finding (deferred at patient request) Cardiovascular: + pertinent finding (deferrd at patient request) Abdomen/GI: + pertinent finding (deferred at patient request) Extremities/Musculoskelatal: normal inspection, no pedal edema, + pertinent finding (dependent edema noted on posterior thighs) Neurologic/Psych: alert Family History Diabetes mellitus Other cardiovascular diseases Stroke Social History Smoking Status: Never smoker Alcohol Use: none Drug Use: none Marital Status: Housing Status: lives with significant other 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 Laboratory Results Past 24 Hours 11/10/16 05:20 11/10/16 05:20 Test 11/10/16 05:20 Red Blood Count 2.95 M/uL (4.2-5.4) Mean Corpuscular Volume 99.3 fL (80-100) Mean Corpuscular Hemoglobin 30.8 pg (25-34) Mean Corpuscular Hemoglobin Concent 31.1 g/dl (32-36) RDW Standard Deviation 53.6 fL (36.4-46.3) RDW Coefficient of Variation 14.7 % (11.5-14.5) Mean Platelet Volume 8.8 fL (7.4-10.4) Anion Gap 11.0 mmol/L (3-11) Est Creatinine Clear Calc Drug Dose 6.3 ml/min Estimated GFR () 7.2 Estimated GFR (Non- 6.2 BUN/Creatinine Ratio 14.3 (10-20) Calcium Level 7.6 mg/dl (8.5-10.1) Phosphorus Level 5.2 mg/dl (2.5-4.9) Albumin 2.9 gm/dl (3.4-5.0) Allergies Coded Allergies: Sulfa Antibiotics (Verified Allergy, Intermediate, BODY SWELLING,NAUSEA AND VOMITNG, 11/05/16) Penicillins (Verified Allergy, Unknown, Tolerates Primaxin, does NOT tolerate ZOSYN, 11/05/16) PER PCP RECORDS Medications Current Inpatient Medications Medications (Trade) Dose Ordered Sig/Helder Route Start Time Stop Time Status Last Admin Dose Admin Acetaminophen (Tylenol Tab) 650 mg Q4H PRN PO 11/05/16 10:45 12/05/16 10:44 Ondansetron HCl (Zofran Inj) 4 mg Q6H PRN IV 11/05/16 10:45 12/05/16 10:44 11/09/16 06:36 4 MG Aspirin (Ecotrin Tab) 81 mg QPM PO 11/05/16 21:00 12/05/16 20:59 11/09/16 20:27 81 MG Atorvastatin Calcium (Lipitor Tab) 80 mg QPM PO 11/05/16 21:00 12/05/16 20:59 11/09/16 20:27 80 MG Cholecalciferol (Vitamin D Tab) 1,000 inter.unit DAILY PO 11/06/16 09:00 12/06/16 08:59 11/10/16 09:26 1,000 INTER.UNIT Clopidogrel Bisulfate (plAVix TAB) 75 mg QPM PO 11/05/16 21:00 12/05/16 20:59 11/09/16 20:29 75 MG Lorazepam (Ativan Tab) 0.5 mg Q6H PRN PO 11/05/16 10:45 12/05/16 10:44 11/08/16 03:03 0.5 MG Nystatin (Mycostatin Powder) 1 appln BID EXT 11/05/16 21:00 12/05/16 20:59 11/10/16 09:27 1 APPLN Ondansetron HCl (Zofran Odt) 4 mg Q6H PRN PO 11/05/16 10:45 12/05/16 10:44 Pantoprazole Sodium (Protonix Tab) 40 mg QAM PO 11/06/16 09:00 12/06/16 08:59 11/10/16 09:25 40 MG Vancomycin HCl (Vancomycin Oral Soln) 125 mg QAM PO 11/06/16 09:00 11/20/16 08:59 11/10/16 09:25 125 MG Febuxostat (Uloric) 40 mg DAILY@1200 PO 11/05/16 14:00 12/05/16 13:59 11/09/16 12:22 40 MG Miscellaneous Information (Order Awaiting Action) 1 ea TID N/A 11/05/16 14:00 12/05/16 13:59 11/10/16 09:25 1 EA Lactobacillus Acidophilus (Floranex Tab) 4 tab QPM PO 11/05/16 21:00 12/05/16 20:59 11/09/16 20:27 4 TAB Raspberry (Raspberry Syrup 5ml Cup) 5 ml DAILY PO 11/06/16 09:00 11/20/16 08:59 11/10/16 09:25 5 ML Heparin Sodium (Porcine) (Heparin 10 Unit/ ml 5 ml Flush) 5 ml PRN PRN FLUSH 11/06/16 04:00 12/06/16 03:59 11/10/16 05:18 5 ML Heparin Sodium (Porcine) (Heparin Sq 5000 Unit/0.5ml) 5,000 unit Q12H SQ 11/07/16 02:00 12/07/16 01:59 Sodium Bicarbonate (Sodium Bicarbonate Tab) 650 mg BID PO 11/08/16 11:00 12/08/16 10:59 11/10/16 09:26 650 MG Carvedilol (Coreg Tab) 12.5 mg BID PO 11/08/16 11:00 12/08/16 10:59 11/10/16 09:25 12.5 MG Loteprednol Etabonate 1 drops 1 drops QAM OPB 11/10/16 08:00 12/05/16 13:59 11/10/16 09:26 1 DROPS Ertapenem/Sodium Chloride (Invanz Iv/Nss 50ml) 55 ml @ 120 mls/hr Q24H IV 11/09/16 16:00 11/19/16 15:59 11/09/16 16:48 120 MLS/HR Miscellaneous Information (Pharmacy Consult) 1 ea UD PRN N/A 11/09/16 15:45 12/09/16 15:44 Impression (1) Hyperkalemia (2) Acute kidney injury (3) Acute on chronic renal failure (4) CKD (chronic kidney disease) stage 5, GFR less than 15 ml/min (5) Recurrent UTI (6) Generalized weakness (7) Bilateral hydronephrosis (8) Coronary artery disease (9) Systolic CHF Mrs. Chase was admitted with generalized weakness in the setting of advanced renal failure and hyperkalemia. Urine culture growing klebsiella. She was started on cipro but unfortunately QTc was slightly prolonged and decision was made to switch to Invanz. Urology declined any additional interventions given risks/benefits. Patient refused PCN placement. Hyperkalemia responded to medical management. Renal function has not shown improvement. During multiple meetings with the patient and her during the hospitalization (including meeting with the patient and Dr. Porter yesterday morning and meeting with the patient's yesterday afternoon with Dr. Griffin and Dr. Porter) and follow up discussion this morning, I have described the nature nature of her CKD and the overall poor prognosis. We have discussed what to expect in terms of progression of disease and associated symptoms (such as confusion, lethargy, weakness and poor appetite). Mr. Sotomayor and Tiana are receptive to restarting hospice care at this time. We discussed her defibrillator and have started discussion overall regarding planning for end of life goals and issues. 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 difficile colitis, ICM w/ LVEF 25%, moderate MR, pulmonary HTN and moderate TR, AICD placement, hypercholesterolemia, chronic respiratory failure requiring ATC 02, obesity ( BMI 32), general debilitated condition Recommendations Hyperkalemia: -- K restrict diet -- Continue oral HCO3 -- Repeat metabolic profile tomorrow AM Klebsiella bacteriuria, chronic colonization, history of UTI, indwelling stents with persistent hydroureteronephrosis: -- Antibiotic therapy per ID ESRD: -- Medications currently appropriately dosed for renal function -- Life expectancy limited and discussion regarding end of life planning initiated Hypertension/ICMO: -- Continue carvedilol 12.5 mg twice daily Anemia -- No additional signs of GI blood loss -- Epogen [id number] units given 11/06/16
[2016-11-10] MEDS: FEBUXOSTAT 40 MG TAB PO SCH (12:53)
[2016-11-10 14:51] VITALS: BP 150/82; PULSE 82; TEMP 36.7; O2SAT 99
[2016-11-10] MEDS: ERTAPENEM IV 500 MG in SODIUM CHLORIDE 0.9% 50ML 50 ML IV SCH (17:51)
[2016-11-10] MEDS: LACTOBACILLUS ACIDOPHILUS (FLORANEX) TAB PO SCH (21:02)
[2016-11-10] MEDS: CLOPIDOGREL BISULFATE 75 MG TAB PO SCH (21:03)
[2016-11-10] MEDS: ATORVASTATIN 40 MG TAB PO SCH (21:03)
[2016-11-10] MEDS: ASPIRIN 81 MG ECTAB PO SCH (21:03)
[2016-11-10 21:07] VITALS: BP 144/80; PULSE 84; O2SAT 98
[2016-11-10 23:44] VITALS: BP 134/83; PULSE 77; TEMP 36.7; O2SAT 98
[2016-11-11] MEDS: HEPARIN SOD 5000 UNIT/0.5 ML CARP SQ SCH ×2 (02:00→13:31)
--- NOTE | 2016-11-11 05:15 | Progress Note ---
Subjective Date of Service: late entry for visit November 10, 2016. Subjective Pt evaluation today including: conversation w/ patient, conversation w/ family ( at bedside), physical exam, chart review, lab review Pain: denies PO Intake: poor Voiding: incontinence no issues overnight reports her appetite is poor today and she is sleepy during the visit she was mildly sleepy but offered no complaints Problem List Medical Problems: (1) Acute kidney failure Status: Acute (2) Acute on chronic kidney failure Status: Acute (3) Acute renal failure Status: Acute (4) Altered mental status Status: Acute (5) Altered mental status Status: Acute (6) ARF (acute renal failure) Status: Acute (7) CRD (chronic renal disease) Status: Acute (8) Dehydration Status: Acute (9) Dehydration Status: Acute (10) Fever Status: Acute (11) Hyperkalemia Status: Acute (12) Hyperkalemia Status: Acute (13) Hyperkalemia Status: Acute (14) Hypomagnesemia Status: Acute (15) PICC (peripherally inserted central catheter) in place Status: Acute (16) Pneumonia Status: Acute (17) Renal failure Status: Acute (18) Renal insufficiency Status: Acute (19) Renal insufficiency Status: Acute (20) Sepsis Status: Acute (21) Sepsis Status: Acute (22) Uremia Status: Acute (23) UTI (urinary tract infection) Status: Acute (24) UTI (urinary tract infection) Status: Acute (25) UTI (urinary tract infection) Status: Acute (26) Weakness Status: Acute (27) Weakness Status: Acute (28) Weakness Status: Acute (29) Weakness Status: Acute (30) Weakness Status: Acute Review of Systems Constitutional: No fever Respiratory: No shortness of breath Cardiac: No chest pain Abdomen: No nausea, No pain Objective Vital Signs Date Time Temp Pulse Resp B/P Pulse Ox O2 Delivery O2 Flow Rate FiO2 11/11/16 00:00 Nasal Cannula 2.0 11/10/16 23:44 36.7 77 20 134/83 98 Nasal Cannula 2.0 11/10/16 21:07 84 144/80 98 Room Air 11/10/16 20:00 Nasal Cannula 2.0 11/10/16 16:33 Nasal Cannula 2.0 11/10/16 14:51 36.7 82 16 150/82 99 Room Air 11/10/16 09:30 Nasal Cannula 2.0 11/10/16 07:15 36.5 96 20 163/73 100 Nasal Cannula 2.0 Physical Exam General Appearance: no apparent distress ENT: pharynx normal (lips dry) Neck: no JVD Respiratory/Chest: lungs clear, no respiratory distress, no accessory muscle use Cardiovascular: regular rate, rhythm, no gallop, no murmur Abdomen: normal bowel sounds, non tender, soft, no organomegaly Extremities: no pedal edema Skin: + pertinent finding (PICC line RUE clean ) Laboratory Results Last 24 Hours Test 11/10/16 05:20 11/11/16 04:44 White Blood Count 9.28 K/uL Red Blood Count 2.95 M/uL Hemoglobin 9.1 g/dL Hematocrit 29.3 % Mean Corpuscular Volume 99.3 fL Mean Corpuscular Hemoglobin 30.8 pg Mean Corpuscular Hemoglobin Concent 31.1 g/dl RDW Standard Deviation 53.6 fL RDW Coefficient of Variation 14.7 % Platelet Count 143 K/uL Mean Platelet Volume 8.8 fL Sodium Level 146 mmol/L Potassium Level 4.2 mmol/L Chloride Level 109 mmol/L Carbon Dioxide Level 26 mmol/L Anion Gap 11.0 mmol/L Blood Urea Nitrogen 85 mg/dl Creatinine 5.80 mg/dl Est Creatinine Clear Calc Drug Dose 6.3 ml/min Estimated GFR () 7.2 Estimated GFR (Non- 6.2 BUN/Creatinine Ratio 14.3 Random Glucose 91 mg/dl Calcium Level 7.6 mg/dl Phosphorus Level 5.2 mg/dl Albumin 2.9 gm/dl Assessment and Plan 81yo female: 1. acute renal failure (ARF) in setting of progressive stage 5 CKD - Cr scantly better but overall GFR unchanged today. Prognosis is extremely poor in light of progressive disease. Appreciate nephrology/urology consultations. ARF was due to poor oral intake, failure to thrive, etc. Obstructive disease felt to be less likely. Patient has stated consistently she would NOT want hemodialysis. Repeat BMP in am. 2. klebsiella UTI - day #5 of abx therapy. remains on ertapenem at 's request. had QTc prolongation with cipro. 3. h/o UVJ obstruction s/p b/l ureteral stents - stents patent on CT but continues with hydronephrosis/dilated ureters. At this time no plans to replace the stents or pursue percutaneous nephrostomy tubes. 4. chronic systolic CHF - compensated. Continue BB. 5. chronic hypoxic resp failure - stable on home O2 amount. 6. hyperkalemia - resolved. 7. metabolic acidosis - 2nd to uremia. Cont bicarb replacement by mouth. 8. DVT proph - heparin BID but patient refusing such. 9. CAD - no ischemic symptoms at this time. Has AICD in place as well. We have discussed turning off the AICD if she pursues hospice. 10. severe deconditioning/failure to thrive/progressing CKD stage 5 - end of life discussions held multiple times this week with patient/ there seems to be some agreement to move forward with hospice at discharge social work involved to assist with this unfortunately we have not been able to address code status, her AICD status, etc will continue with these discussions in light of her very, very poor prognosis and high potential for recurrent acidosis, uremic symptoms, hyperkalemia, etc. Continued [facility] stay due to: multiple IV medications needed Discharge planning: home with Hospice
[2016-11-11 06:09] LABS: HEMATOCRIT 28.7 % (37-47); MEAN CELL VOLUME 99.3 fL (80-100); MEAN CORPUSCULAR HEMOGLOBIN 30.4 pg (25-34); MEAN CORPUSCULAR HGB CONC 30.7 g/dl (32-36); MEAN PLATELET VOLUME 8.9 fL (7.4-10.4); PLATELET COUNT 156 K/uL (130-400); RED BLOOD COUNT 2.89 M/uL (4.2-5.4); WHITE BLOOD COUNT 10.41 K/uL (4.8-10.8)
[2016-11-11 07:05] LABS: CALCIUM 7.6 mg/dl (8.5-10.1); CREATININE 5.9 mg/dl (0.60-1.20); PHOSPHORUS 5.4 mg/dl (2.5-4.9); POTASSIUM 4.4 mmol/L (3.5-5.1)
[2016-11-11 07:21] VITALS: BP 137/79; PULSE 74; TEMP 36.9; O2SAT 99
[2016-11-11] MEDS: VANCOMYCIN HCL 125 MG/2.5ML SOLN PO SCH (08:38)
[2016-11-11] MEDS: PANTOprazole SOD 40 MG TAB PO SCH (08:39)
[2016-11-11] MEDS: Loteprednol Etabonate (Lotemax) OPB SCH (08:39)
[2016-11-11] MEDS: SODIUM BICARBONATE 650 MG TAB PO SCH ×2 (08:40→19:36)
[2016-11-11] MEDS: CHOLECALCIFEROL 1000 INTER.UNIT TAB PO SCH (08:40)
[2016-11-11] MEDS: CARVEDILOL 12.5 MG TAB PO SCH ×2 (08:40→19:36)
[2016-11-11] MEDS: RASPBERRY SYRUP 5 ML UDP PO SCH (08:41)
[2016-11-11] MEDS: NYSTATIN POWDER 15GM BTL EXT SCH ×2 (08:44→19:36)
[2016-11-11] MEDS ORDERED: EPOETIN ALFA 20,000 UNITS/ML VIAL SQ ONE (12:00)
--- NOTE | 2016-11-11 12:11 | Nephrology Progress Note ---
Nephrology Progress Note Date of Service November 11, 2016. Chief Complaint Acute on chronic renal insufficiency Subjective No acute events overnight. Appetite remains poor. Tiana felt slightly better this morning. No fevers or chills. No pain or discomfort reported. No shortness of breath. Her remains at the bedside. Review of Systems A complete review of systems was performed. Pertinent positives are noted above. All other systems are negative. Vital Signs Last 8 Hrs Date Time Temp Pulse Resp B/P Pulse Ox O2 Delivery O2 Flow Rate FiO2 11/11/16 08:00 Nasal Cannula 2.0 11/11/16 07:21 36.9 74 20 137/79 99 Last Recorded Weight Weight (Kilograms): 62.200 Physical Exam General Appearance: no apparent distress Head: normocephalic, atraumatic Eyes: normal inspection, sclerae normal ENT: pharynx normal Neck: supple, + pertinent finding (JVP 10-12 cm at 45 degrees) Respiratory/Chest: + pertinent finding (clear anteriorly) Cardiovascular: regular rate, rhythm, no gallop Abdomen/GI: non tender, soft Extremities/Musculoskelatal: normal inspection, + pedal edema (dependent) Neurologic/Psych: alert, + depressed affect Family History Diabetes mellitus Other cardiovascular diseases Stroke Social History Smoking Status: Never smoker Alcohol Use: none Drug Use: none Marital Status: Housing Status: lives with significant other 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 Laboratory Results Past 24 Hours 11/11/16 05:17 11/11/16 05:17 Test 11/11/16 05:17 Red Blood Count 2.89 M/uL (4.2-5.4) Mean Corpuscular Volume 99.3 fL (80-100) Mean Corpuscular Hemoglobin 30.4 pg (25-34) Mean Corpuscular Hemoglobin Concent 30.7 g/dl (32-36) RDW Standard Deviation 53.7 fL (36.4-46.3) RDW Coefficient of Variation 14.9 % (11.5-14.5) Mean Platelet Volume 8.9 fL (7.4-10.4) Anion Gap 11.0 mmol/L (3-11) Est Creatinine Clear Calc Drug Dose 6.2 ml/min Estimated GFR () 7.1 Estimated GFR (Non- 6.1 BUN/Creatinine Ratio 14.0 (10-20) Calcium Level 7.6 mg/dl (8.5-10.1) Phosphorus Level 5.4 mg/dl (2.5-4.9) Albumin 2.8 gm/dl (3.4-5.0) Allergies Coded Allergies: Sulfa Antibiotics (Verified Allergy, Intermediate, BODY SWELLING,NAUSEA AND VOMITNG, 11/05/16) Penicillins (Verified Allergy, Unknown, Tolerates Primaxin, does NOT tolerate ZOSYN, 11/05/16) PER PCP RECORDS Medications Current Inpatient Medications Medications (Trade) Dose Ordered Sig/Helder Route Start Time Stop Time Status Last Admin Dose Admin Acetaminophen (Tylenol Tab) 650 mg Q4H PRN PO 11/05/16 10:45 12/05/16 10:44 Ondansetron HCl (Zofran Inj) 4 mg Q6H PRN IV 11/05/16 10:45 12/05/16 10:44 11/09/16 06:36 4 MG Aspirin (Ecotrin Tab) 81 mg QPM PO 11/05/16 21:00 12/05/16 20:59 11/10/16 21:03 81 MG Atorvastatin Calcium (Lipitor Tab) 80 mg QPM PO 11/05/16 21:00 12/05/16 20:59 11/10/16 21:03 80 MG Cholecalciferol (Vitamin D Tab) 1,000 inter.unit DAILY PO 11/06/16 09:00 12/06/16 08:59 11/11/16 08:40 1,000 INTER.UNIT Clopidogrel Bisulfate (plAVix TAB) 75 mg QPM PO 11/05/16 21:00 12/05/16 20:59 11/10/16 21:03 75 MG Lorazepam (Ativan Tab) 0.5 mg Q6H PRN PO 11/05/16 10:45 12/05/16 10:44 11/08/16 03:03 0.5 MG Nystatin (Mycostatin Powder) 1 appln BID EXT 11/05/16 21:00 12/05/16 20:59 11/11/16 08:44 1 APPLN Ondansetron HCl (Zofran Odt) 4 mg Q6H PRN PO 11/05/16 10:45 12/05/16 10:44 Pantoprazole Sodium (Protonix Tab) 40 mg QAM PO 11/06/16 09:00 12/06/16 08:59 11/11/16 08:39 40 MG Vancomycin HCl (Vancomycin Oral Soln) 125 mg QAM PO 11/06/16 09:00 11/20/16 08:59 11/11/16 08:38 125 MG Febuxostat (Uloric) 40 mg DAILY@1200 PO 11/05/16 14:00 12/05/16 13:59 11/10/16 12:53 40 MG Miscellaneous Information (Order Awaiting Action) 1 ea TID N/A 11/05/16 14:00 12/05/16 13:59 11/11/16 08:45 1 EA Lactobacillus Acidophilus (Floranex Tab) 4 tab QPM PO 11/05/16 21:00 12/05/16 20:59 11/10/16 21:02 4 TAB Raspberry (Raspberry Syrup 5ml Cup) 5 ml DAILY PO 11/06/16 09:00 11/20/16 08:59 11/11/16 08:41 5 ML Heparin Sodium (Porcine) (Heparin 10 Unit/ ml 5 ml Flush) 5 ml PRN PRN FLUSH 11/06/16 04:00 12/06/16 03:59 11/11/16 05:14 5 ML Heparin Sodium (Porcine) (Heparin Sq 5000 Unit/0.5ml) 5,000 unit Q12H SQ 11/07/16 02:00 12/07/16 01:59 Sodium Bicarbonate (Sodium Bicarbonate Tab) 650 mg BID PO 11/08/16 11:00 12/08/16 10:59 11/11/16 08:40 650 MG Carvedilol (Coreg Tab) 12.5 mg BID PO 11/08/16 11:00 12/08/16 10:59 11/11/16 08:40 12.5 MG Loteprednol Etabonate 1 drops 1 drops QAM OPB 11/10/16 08:00 12/05/16 13:59 11/11/16 08:39 1 DROPS Ertapenem/Sodium Chloride (Invanz Iv/Nss 50ml) 55 ml @ 120 mls/hr Q24H IV 11/09/16 16:00 11/19/16 15:59 11/10/16 17:51 120 MLS/HR Miscellaneous Information (Pharmacy Consult) 1 ea UD PRN N/A 11/09/16 15:45 12/09/16 15:44 Impression (1) Hyperkalemia (2) Acute kidney injury (3) Acute on chronic renal failure (4) CKD (chronic kidney disease) stage 5, GFR less than 15 ml/min (5) Recurrent UTI (6) Generalized weakness (7) Bilateral hydronephrosis (8) Coronary artery disease (9) Systolic CHF Mrs. Chase was admitted with generalized weakness in the setting of advanced renal failure and hyperkalemia. Urine culture growing klebsiella. She remains on Ertapenem for UTI. Discharge plan is to return home with hospice care. Discussions regarding goals and care at end of life continue. Patient and her educated regarding advanced nature of her kidney disease and complications and symptoms associated with ESRD. She remains stable with medical management of advanced CKD and ways to comfortably improve daily oral fluid intake have been encouraged. 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 difficile colitis, ICM w/ LVEF 25%, moderate MR, pulmonary HTN and moderate TR, AICD placement, hypercholesterolemia, chronic respiratory failure requiring ATC 02, obesity ( BMI 32), general debilitated condition Recommendations Hyperkalemia: -- Resolved with medical management -- Continue oral HCO3 -- Repeat metabolic profile tomorrow AM Klebsiella bacteriuria, chronic colonization, history of UTI, indwelling stents with persistent hydroureteronephrosis: -- Ertapenem per ID ESRD: -- Medications currently appropriately dosed for renal function -- Life expectancy limited and discussion regarding end of life planning initiated Hypertension/ICMO: -- Continue carvedilol 12.5 mg twice daily Anemia -- No additional signs of GI blood loss -- Epogen 20505 units given 11/06/16 and repeated today
[2016-11-11] MEDS: FEBUXOSTAT 40 MG TAB PO SCH (13:31)
[2016-11-11 16:00] VITALS: O2SAT 99
[2016-11-11] MEDS: ERTAPENEM IV 500 MG in SODIUM CHLORIDE 0.9% 50ML 50 ML IV SCH (16:04)
[2016-11-11] MEDS: ATORVASTATIN 40 MG TAB PO SCH (19:37)
[2016-11-11] MEDS: ASPIRIN 81 MG ECTAB PO SCH (19:37)
[2016-11-11] MEDS: LACTOBACILLUS ACIDOPHILUS (FLORANEX) TAB PO SCH (19:37)
[2016-11-11] MEDS: CLOPIDOGREL BISULFATE 75 MG TAB PO SCH (19:38)
--- NOTE | 2016-11-11 20:30 | Progress Note ---
Subjective Date of Service: November 11, 2016. Subjective Pt evaluation today including: conversation w/ patient, conversation w/ family , physical exam, chart review, lab review, conversation w/ [employer] consultant ( nephrology) Pain: denies abd pain, chest pain, etc PO Intake: minimal/scant Voiding: incontinence patient sleepy today, no energy, dazed look, minimal appetite at bedside Problem List Medical Problems: (1) Acute kidney failure Status: Acute (2) Acute on chronic kidney failure Status: Acute (3) Acute renal failure Status: Acute (4) Altered mental status Status: Acute (5) Altered mental status Status: Acute (6) ARF (acute renal failure) Status: Acute (7) CRD (chronic renal disease) Status: Acute (8) Dehydration Status: Acute (9) Dehydration Status: Acute (10) Fever Status: Acute (11) Hyperkalemia Status: Acute (12) Hyperkalemia Status: Acute (13) Hyperkalemia Status: Acute (14) Hypomagnesemia Status: Acute (15) PICC (peripherally inserted central catheter) in place Status: Acute (16) Pneumonia Status: Acute (17) Renal failure Status: Acute (18) Renal insufficiency Status: Acute (19) Renal insufficiency Status: Acute (20) Sepsis Status: Acute (21) Sepsis Status: Acute (22) Uremia Status: Acute (23) UTI (urinary tract infection) Status: Acute (24) UTI (urinary tract infection) Status: Acute (25) UTI (urinary tract infection) Status: Acute (26) Weakness Status: Acute (27) Weakness Status: Acute (28) Weakness Status: Acute (29) Weakness Status: Acute (30) Weakness Status: Acute Review of Systems Respiratory: No dyspnea at rest Cardiac: No chest pain Abdomen: No nausea, No pain, No vomiting Objective Vital Signs Date Time Temp Pulse Resp B/P Pulse Ox O2 Delivery O2 Flow Rate FiO2 11/11/16 16:00 99 Nasal Cannula 2.0 11/11/16 08:00 Nasal Cannula 2.0 11/11/16 07:21 36.9 74 20 137/79 99 11/11/16 00:00 Nasal Cannula 2.0 11/10/16 23:44 36.7 77 20 134/83 98 Nasal Cannula 2.0 11/10/16 21:07 84 144/80 98 Room Air Physical Exam General Appearance: no apparent distress, + pertinent finding (sickly, uremic) ENT: + pertinent finding (MM becoming dry; no thrush) Neck: no JVD Respiratory/Chest: lungs clear, no respiratory distress, no accessory muscle use Cardiovascular: regular rate, rhythm, no gallop, no murmur Abdomen: normal bowel sounds, non tender, soft, no organomegaly Extremities: no pedal edema Neurologic/Psychiatric: + pertinent finding (sleepy but does answer questions ( some delay in answering them, however)) Skin: + pallor, + pertinent finding (PICC RUE clean ) Laboratory Results Last 24 Hours Test 11/11/16 05:17 White Blood Count 10.41 K/uL Red Blood Count 2.89 M/uL Hemoglobin 8.8 g/dL Hematocrit 28.7 % Mean Corpuscular Volume 99.3 fL Mean Corpuscular Hemoglobin 30.4 pg Mean Corpuscular Hemoglobin Concent 30.7 g/dl RDW Standard Deviation 53.7 fL RDW Coefficient of Variation 14.9 % Platelet Count 156 K/uL Mean Platelet Volume 8.9 fL Sodium Level 146 mmol/L Potassium Level 4.4 mmol/L Chloride Level 109 mmol/L Carbon Dioxide Level 26 mmol/L Anion Gap 11.0 mmol/L Blood Urea Nitrogen 83 mg/dl Creatinine 5.90 mg/dl Est Creatinine Clear Calc Drug Dose 6.2 ml/min Estimated GFR () 7.1 Estimated GFR (Non- 6.1 BUN/Creatinine Ratio 14.0 Random Glucose 89 mg/dl Calcium Level 7.6 mg/dl Phosphorus Level 5.4 mg/dl Albumin 2.8 gm/dl Assessment and Plan 81yo female: 1. acute renal failure (ARF) in setting of progressive stage 5 CKD - ARF unchanged. Prognosis is extremely poor in light of advanced/progressive disease. Appreciate nephrology/urology consultations. Patient has stated consistently she would NOT want hemodialysis. She seems uremic today. 2. klebsiella UTI - day #6 of abx therapy. remains on ertapenem at 's request. had QTc prolongation with cipro. 3. h/o UVJ obstruction s/p b/l ureteral stents - stents patent on CT but continues with hydronephrosis/dilated ureters. At this time no plans to replace the stents or pursue percutaneous nephrostomy tubes. 4. chronic systolic CHF - compensated. Continue BB. 5. chronic hypoxic resp failure - stable on home O2 amount. 6. metabolic acidosis - 2nd to uremia. Cont bicarb replacement by mouth. 7. DVT proph - heparin BID but patient refusing such. 8. CAD - no ischemic symptoms at this time. Has AICD in place as well. We have discussed turning off the AICD if she pursues hospice. 9. severe deconditioning/failure to thrive/progressing CKD stage 5 - end of life discussions held multiple times this week with patient/ there seems to be some agreement to move forward with hospice at discharge social work involved to assist with this; we cannot secure the hospice at home until Saturday unfortunately we have not been able to address code status, her AICD status, etc will continue with these discussions in light of her very, very poor prognosis and high potential for recurrent acidosis, uremic symptoms, hyperkalemia, etc. Continued [facility] stay due to: multiple IV medications needed Discharge planning: home with Hospice
[2016-11-12 00:24] VITALS: BP 108/64; PULSE 81; TEMP 36.5; O2SAT 97
[2016-11-12] MEDS: HEPARIN SOD 5000 UNIT/0.5 ML CARP SQ SCH ×2 (02:00→13:04)
[2016-11-12 06:52] LABS: BUN/CREATININE RATIO 14.7 (10-20); CALCIUM 7.6 mg/dl (8.5-10.1); CREATININE 6.1 mg/dl (0.60-1.20); POTASSIUM 4.5 mmol/L (3.5-5.1)
[2016-11-12] MEDS: VANCOMYCIN HCL 125 MG/2.5ML SOLN PO SCH (07:45)
[2016-11-12] MEDS: RASPBERRY SYRUP 5 ML UDP PO SCH (07:45)
[2016-11-12] MEDS: Loteprednol Etabonate (Lotemax) OPB SCH (07:46)
[2016-11-12] MEDS: CHOLECALCIFEROL 1000 INTER.UNIT TAB PO SCH (07:46)
[2016-11-12] MEDS: SODIUM BICARBONATE 650 MG TAB PO SCH ×2 (07:46→21:43)
[2016-11-12] MEDS: PANTOprazole SOD 40 MG TAB PO SCH (07:47)
[2016-11-12] MEDS: CARVEDILOL 12.5 MG TAB PO SCH ×2 (07:47→21:43)
[2016-11-12] MEDS: NYSTATIN POWDER 15GM BTL EXT SCH ×2 (07:48→21:42)
[2016-11-12 08:53] VITALS: BP 100/62; PULSE 74; TEMP 36.6; O2SAT 97
--- NOTE | 2016-11-12 12:05 | Nephrology Progress Note ---
Nephrology Progress Note Date of Service November 12, 2016. Chief Complaint Acute on chronic renal insufficiency Subjective No acute events overnight. Tiana states that she feels better this morning. Appetite remains poor. No fevers or chills. No abdominal pain. Voiding urine without difficulty. Her and caregiver remain at the bedside. She is hopeful to be discharged home tomorrow. Review of Systems A complete review of systems was performed. Pertinent positives are noted above. All other systems are negative. Vital Signs Last 8 Hrs Date Time Temp Pulse Resp B/P Pulse Ox O2 Delivery O2 Flow Rate FiO2 11/12/16 08:53 36.6 74 20 100/62 97 2.0 11/12/16 08:30 Nasal Cannula 2.0 Last Recorded Weight Weight (Kilograms): 62.200 Physical Exam General Appearance: no apparent distress, + pertinent finding (chronically ill appearing) Eyes: normal inspection, sclerae normal ENT: normal ENT inspection, + pertinent finding (oral mucosa slightly dry) Neck: no JVD Respiratory/Chest: + pertinent finding (patient deferred) Cardiovascular: + pertinent finding (patient deferred) Back: + pertinent finding (patient deferred) Abdomen/GI: + pertinent finding (patient deferred) Neurologic/Psych: alert, normal mood/affect Family History Diabetes mellitus Other cardiovascular diseases Stroke Social History Smoking Status: Never smoker Alcohol Use: none Drug Use: none Marital Status: Housing Status: lives with significant other 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 Laboratory Results Past 24 Hours 11/12/16 05:23 Test 11/12/16 05:23 Anion Gap 9.0 mmol/L (3-11) Est Creatinine Clear Calc Drug Dose 6.0 ml/min Estimated GFR () 6.8 Estimated GFR (Non- 5.8 BUN/Creatinine Ratio 14.7 (10-20) Calcium Level 7.6 mg/dl (8.5-10.1) Allergies Coded Allergies: Sulfa Antibiotics (Verified Allergy, Intermediate, BODY SWELLING,NAUSEA AND VOMITNG, 11/05/16) Penicillins (Verified Allergy, Unknown, Tolerates Primaxin, does NOT tolerate ZOSYN, 11/05/16) PER PCP RECORDS Medications Current Inpatient Medications Medications (Trade) Dose Ordered Sig/Helder Route Start Time Stop Time Status Last Admin Dose Admin Acetaminophen (Tylenol Tab) 650 mg Q4H PRN PO 11/05/16 10:45 12/05/16 10:44 Ondansetron HCl (Zofran Inj) 4 mg Q6H PRN IV 11/05/16 10:45 12/05/16 10:44 11/09/16 06:36 4 MG Aspirin (Ecotrin Tab) 81 mg QPM PO 11/05/16 21:00 12/05/16 20:59 11/11/16 19:37 81 MG Atorvastatin Calcium (Lipitor Tab) 80 mg QPM PO 11/05/16 21:00 12/05/16 20:59 11/11/16 19:37 80 MG Cholecalciferol (Vitamin D Tab) 1,000 inter.unit DAILY PO 11/06/16 09:00 12/06/16 08:59 11/12/16 07:46 1,000 INTER.UNIT Clopidogrel Bisulfate (plAVix TAB) 75 mg QPM PO 11/05/16 21:00 12/05/16 20:59 11/11/16 19:38 75 MG Lorazepam (Ativan Tab) 0.5 mg Q6H PRN PO 11/05/16 10:45 12/05/16 10:44 11/08/16 03:03 0.5 MG Nystatin (Mycostatin Powder) 1 appln BID EXT 11/05/16 21:00 12/05/16 20:59 11/12/16 07:48 1 APPLN Ondansetron HCl (Zofran Odt) 4 mg Q6H PRN PO 11/05/16 10:45 12/05/16 10:44 Pantoprazole Sodium (Protonix Tab) 40 mg QAM PO 11/06/16 09:00 12/06/16 08:59 11/12/16 07:47 40 MG Vancomycin HCl (Vancomycin Oral Soln) 125 mg QAM PO 11/06/16 09:00 11/20/16 08:59 11/12/16 07:45 125 MG Febuxostat (Uloric) 40 mg DAILY@1200 PO 11/05/16 14:00 12/05/16 13:59 11/11/16 13:31 40 MG Lactobacillus Acidophilus (Floranex Tab) 4 tab QPM PO 11/05/16 21:00 12/05/16 20:59 11/11/16 19:37 4 TAB Raspberry (Raspberry Syrup 5ml Cup) 5 ml DAILY PO 11/06/16 09:00 11/20/16 08:59 11/12/16 07:45 5 ML Heparin Sodium (Porcine) (Heparin 10 Unit/ ml 5 ml Flush) 5 ml PRN PRN FLUSH 11/06/16 04:00 12/06/16 03:59 11/12/16 05:21 5 ML Heparin Sodium (Porcine) (Heparin Sq 5000 Unit/0.5ml) 5,000 unit Q12H SQ 11/07/16 02:00 12/07/16 01:59 Sodium Bicarbonate (Sodium Bicarbonate Tab) 650 mg BID PO 11/08/16 11:00 12/08/16 10:59 11/12/16 07:46 650 MG Carvedilol (Coreg Tab) 12.5 mg BID PO 11/08/16 11:00 12/08/16 10:59 11/12/16 07:47 12.5 MG Loteprednol Etabonate 1 drops 1 drops QAM OPB 11/10/16 08:00 12/05/16 13:59 11/12/16 07:46 1 DROPS Ertapenem/Sodium Chloride (Invanz Iv/Nss 50ml) 55 ml @ 120 mls/hr Q24H IV 11/09/16 16:00 11/19/16 15:59 11/11/16 16:04 120 MLS/HR Miscellaneous Information (Pharmacy Consult) 1 ea UD PRN N/A 11/09/16 15:45 12/09/16 15:44 Impression (1) Hyperkalemia (2) Acute kidney injury (3) Acute on chronic renal failure (4) CKD (chronic kidney disease) stage 5, GFR less than 15 ml/min (5) Recurrent UTI (6) Generalized weakness (7) Bilateral hydronephrosis (8) Coronary artery disease (9) Systolic CHF Mrs. Chase was admitted with generalized weakness in the setting of advanced renal failure and hyperkalemia. Urine culture growing klebsiella. She remains on Ertapenem for UTI. Discharge plan is to return home with hospice care. Discussions regarding goals and care at end of life continue. She would like to continue to monitor laboratory studies for JOURDAN therapy and medical management of hyperkalemia PRN for now. 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 difficile colitis, ICM w/ LVEF 25%, moderate MR, pulmonary HTN and moderate TR, AICD placement, hypercholesterolemia, chronic respiratory failure requiring ATC 02, obesity ( BMI 32), general debilitated condition Recommendations Hyperkalemia: -- Continue oral HCO3 -- Repeat metabolic profile tomorrow AM Klebsiella bacteriuria, chronic colonization, history of UTI, indwelling stents with persistent hydroureteronephrosis: -- Ertapenem per ID ESRD: -- Medications currently appropriately dosed for renal function -- Hospice care to be arranged at discharge Hypertension/ICMO: -- Continue carvedilol 12.5 mg twice daily as tolerated Anemia -- No additional signs of GI blood loss -- Epogen [id number] units given 11/06/16 and 11/11/16
[2016-11-12] MEDS: FEBUXOSTAT 40 MG TAB PO SCH (13:03)
[2016-11-12] MEDS: ERTAPENEM IV 500 MG in SODIUM CHLORIDE 0.9% 50ML 50 ML IV SCH (16:09)
[2016-11-12 17:05] VITALS: BP 102/64; PULSE 74; TEMP 36.6; O2SAT 97
--- NOTE | 2016-11-12 17:30 | Progress Note ---
Subjective Date of Service: November 12, 2016. Subjective I spoke to at length in room, spoke to she is pleasantly confused. He had a mis expectation of what upcoming hospice discussion is all about, he is not ready to place pt on hospice as he is not ready to give up and not treat. He would like to re engage urology to possibly remove stents or gain additional evaluation perhaps at a tertiary care center I do not believe the patient has the understanding to make such a complex decision Problem List Medical Problems: (1) Acute kidney failure Status: Acute (2) Acute on chronic kidney failure Status: Acute (3) Acute renal failure Status: Acute (4) Altered mental status Status: Acute (5) Altered mental status Status: Acute (6) ARF (acute renal failure) Status: Acute (7) CRD (chronic renal disease) Status: Acute (8) Dehydration Status: Acute (9) Dehydration Status: Acute (10) Fever Status: Acute (11) Hyperkalemia Status: Acute (12) Hyperkalemia Status: Acute (13) Hyperkalemia Status: Acute (14) Hypomagnesemia Status: Acute (15) PICC (peripherally inserted central catheter) in place Status: Acute (16) Pneumonia Status: Acute (17) Renal failure Status: Acute (18) Renal insufficiency Status: Acute (19) Renal insufficiency Status: Acute (20) Sepsis Status: Acute (21) Sepsis Status: Acute (22) Uremia Status: Acute (23) UTI (urinary tract infection) Status: Acute (24) UTI (urinary tract infection) Status: Acute (25) UTI (urinary tract infection) Status: Acute (26) Weakness Status: Acute (27) Weakness Status: Acute (28) Weakness Status: Acute (29) Weakness Status: Acute (30) Weakness Status: Acute Review of Systems Constitutional: No chills, No fever, No weakness Eyes: No eye pain, No worsening of vision Respiratory: No cough, No dyspnea on exertion, No shortness of breath Cardiac: No chest pain, No orthopnea Abdomen: No nausea, No pain Musculoskeletal: No joint pain, No muscle pain Neurologic: No memory loss, No paralysis Psychiatric: No anxiety, No depression symptoms Objective Vital Signs Date Time Temp Pulse Resp B/P Pulse Ox O2 Delivery O2 Flow Rate FiO2 11/12/16 08:53 36.6 74 20 100/62 97 2.0 11/12/16 08:30 Nasal Cannula 2.0 11/12/16 00:24 36.5 81 20 108/64 97 Nasal Cannula 2.0 11/12/16 00:00 Nasal Cannula 2.0 11/11/16 20:00 Nasal Cannula 2.0 11/11/16 16:00 99 Nasal Cannula 2.0 Physical Exam General Appearance: WD/WN, + mild distress Neck: supple, no JVD Respiratory/Chest: chest non-tender, lungs clear, normal breath sounds Cardiovascular: regular rate, rhythm, no murmur Abdomen: normal bowel sounds, non tender, soft Extremities: no pedal edema, no calf tenderness Neurologic/Psychiatric: alert, + disoriented Skin: normal color, warm/dry Laboratory Results Last 24 Hours Test 11/12/16 05:23 Sodium Level 145 mmol/L Potassium Level 4.5 mmol/L Chloride Level 109 mmol/L Carbon Dioxide Level 27 mmol/L Anion Gap 9.0 mmol/L Blood Urea Nitrogen 89 mg/dl Creatinine 6.10 mg/dl Est Creatinine Clear Calc Drug Dose 6.0 ml/min Estimated GFR () 6.8 Estimated GFR (Non- 5.8 BUN/Creatinine Ratio 14.7 Random Glucose 85 mg/dl Calcium Level 7.6 mg/dl Assessment and Plan 81yo F admitted with progressive renal failure, previously decided not to have dialysis acute renal failure (ARF) in setting of progressive stage 5 CKD - ARF unchanged. Prognosis is extremely poor in light of advanced/progressive disease. Nephrology/urology consultants following. does not want to give up actively treating this patient, is also considering possible additional opinion from tertiary center klebsiella UTI - remains on ertapenem at 's request. had QTc prolongation with cipro. h/o UVJ obstruction s/p b/l ureteral stents - stents patent on CT but continues with hydronephrosis/dilated ureters. At this time no plans to replace the stents or pursue percutaneous nephrostomy tubes. chronic hypoxic resp failure - remains stable on home O2 amount. DVT proph - heparin BID but patient refusing such. CAD - no ischemic symptoms at this time. Previously Dr Ward has discussed turning off the AICD if she pursues hospice. Dr Ward has hadend of life discussions held multiple times with patient/ there seems to be some agreement to move forward with hospice at discharge social work involved to assist with this; we cannot secure the hospice at home until Saturday Continued [facility] stay due to: multiple IV medications needed Discharge planning: home with Hospice
[2016-11-12 21:39] VITALS: BP 126/76; PULSE 80
[2016-11-12] MEDS: LACTOBACILLUS ACIDOPHILUS (FLORANEX) TAB PO SCH (21:44)
[2016-11-12] MEDS: ASPIRIN 81 MG ECTAB PO SCH (21:44)
[2016-11-12] MEDS: ATORVASTATIN 40 MG TAB PO SCH (21:44)
[2016-11-12] MEDS: CLOPIDOGREL BISULFATE 75 MG TAB PO SCH (21:45)
[2016-11-13 00:13] VITALS: BP 107/66; PULSE 78; TEMP 36.6; O2SAT 99
[2016-11-13] MEDS: HEPARIN SOD 5000 UNIT/0.5 ML CARP SQ SCH ×2 (02:54→13:38)
[2016-11-13 05:34] LABS: HEMATOCRIT 25.7 % (37-47); MEAN CELL VOLUME 101.2 fL (80-100); MEAN CORPUSCULAR HEMOGLOBIN 32.3 pg (25-34); MEAN CORPUSCULAR HGB CONC 31.9 g/dl (32-36); MEAN PLATELET VOLUME 9.3 fL (7.4-10.4); PLATELET COUNT 125 K/uL (130-400); RED BLOOD COUNT 2.54 M/uL (4.2-5.4); WHITE BLOOD COUNT 11.13 K/uL (4.8-10.8)
[2016-11-13 06:10] LABS: BUN/CREATININE RATIO 14.4 (10-20); CALCIUM 7.8 mg/dl (8.5-10.1); CREATININE 6.3 mg/dl (0.60-1.20); POTASSIUM 4.4 mmol/L (3.5-5.1)
[2016-11-13 07:18] VITALS: BP 103/67; PULSE 78; TEMP 36.4; O2SAT 98
[2016-11-13] MEDS: VANCOMYCIN HCL 125 MG/2.5ML SOLN PO SCH (07:48)
[2016-11-13] MEDS: RASPBERRY SYRUP 5 ML UDP PO SCH (07:48)
[2016-11-13] MEDS: CARVEDILOL 12.5 MG TAB PO SCH ×2 (07:49→20:32)
[2016-11-13] MEDS: SODIUM BICARBONATE 650 MG TAB PO SCH ×2 (07:49→20:33)
[2016-11-13] MEDS: CHOLECALCIFEROL 1000 INTER.UNIT TAB PO SCH (07:49)
[2016-11-13] MEDS: PANTOprazole SOD 40 MG TAB PO SCH (07:49)
[2016-11-13] MEDS: Loteprednol Etabonate (Lotemax) OPB SCH (07:49)
[2016-11-13] MEDS: NYSTATIN POWDER 15GM BTL EXT SCH ×2 (07:51→20:31)
--- NOTE | 2016-11-13 09:46 | Nephrology Progress Note ---
Nephrology Progress Note Date of Service November 13, 2016. Chief Complaint Acute on chronic renal insufficiency Subjective No acute events overnight. Tiana was resting comfortably in bed this morning. Appetite remains poor. Her remains at the bedside. Dr. Naik and I discussed the plan of care with Tiana and her in detail. I discussed concerns raised by Mr. Chase with Dr. Naik yesterday. Mr. Chase expressed significant reluctance to initiate hospice care. He is not ready to concede that Tiana is dying from ESRD. Tiana has not experienced fevers or chills. Tiana remains weak and unable to transfer from bed without assistance. She has not been able to sit in a chair. She passed two formed bowel movements yesterday. Review of Systems A complete review of systems was performed. Pertinent positives are noted above. All other systems are negative. Vital Signs Last 8 Hrs Date Time Temp Pulse Resp B/P Pulse Ox O2 Delivery O2 Flow Rate FiO2 11/13/16 07:18 36.4 78 16 103/67 98 2.0 I & O 24-Hour Column 11/13/16 08:00 Intake Total 50 ml Balance 50 ml Last Recorded Weight Weight (Kilograms): 62.200 Physical Exam General Appearance: no apparent distress, + pertinent finding (generalized weakness) Head: normocephalic, atraumatic Eyes: normal inspection, sclerae normal ENT: normal ENT inspection, pharynx normal Neck: supple, + JVD (12 cm lying flat) Respiratory/Chest: no respiratory distress, no accessory muscle use Cardiovascular: + pertinent finding (Deferred to Dr. Naik) Abdomen/GI: soft Extremities/Musculoskelatal: normal inspection, + pedal edema (dependent) Neurologic/Psych: alert, + depressed affect Family History Diabetes mellitus Other cardiovascular diseases Stroke Social History Smoking Status: Never smoker Alcohol Use: none Drug Use: none Marital Status: Housing Status: lives with significant other 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 Laboratory Results Past 24 Hours 11/13/16 05:05 11/13/16 05:05 Test 11/13/16 05:05 Red Blood Count 2.54 M/uL (4.2-5.4) Mean Corpuscular Volume 101.2 fL (80-100) Mean Corpuscular Hemoglobin 32.3 pg (25-34) Mean Corpuscular Hemoglobin Concent 31.9 g/dl (32-36) RDW Standard Deviation 55.2 fL (36.4-46.3) RDW Coefficient of Variation 14.9 % (11.5-14.5) Mean Platelet Volume 9.3 fL (7.4-10.4) Anion Gap 8.0 mmol/L (3-11) Est Creatinine Clear Calc Drug Dose 5.8 ml/min Estimated GFR () 6.5 Estimated GFR (Non- 5.6 BUN/Creatinine Ratio 14.4 (10-20) Calcium Level 7.8 mg/dl (8.5-10.1) Allergies Coded Allergies: Sulfa Antibiotics (Verified Allergy, Intermediate, BODY SWELLING,NAUSEA AND VOMITNG, 11/05/16) Penicillins (Verified Allergy, Unknown, Tolerates Primaxin, does NOT tolerate ZOSYN, 11/05/16) PER PCP RECORDS Medications Current Inpatient Medications Medications (Trade) Dose Ordered Sig/Helder Route Start Time Stop Time Status Last Admin Dose Admin Acetaminophen (Tylenol Tab) 650 mg Q4H PRN PO 11/05/16 10:45 12/05/16 10:44 Ondansetron HCl (Zofran Inj) 4 mg Q6H PRN IV 11/05/16 10:45 12/05/16 10:44 11/09/16 06:36 4 MG Aspirin (Ecotrin Tab) 81 mg QPM PO 11/05/16 21:00 12/05/16 20:59 11/12/16 21:44 81 MG Atorvastatin Calcium (Lipitor Tab) 80 mg QPM PO 11/05/16 21:00 12/05/16 20:59 11/12/16 21:44 80 MG Cholecalciferol (Vitamin D Tab) 1,000 inter.unit DAILY PO 11/06/16 09:00 12/06/16 08:59 11/13/16 07:49 1,000 INTER.UNIT Clopidogrel Bisulfate (plAVix TAB) 75 mg QPM PO 11/05/16 21:00 12/05/16 20:59 11/12/16 21:45 75 MG Lorazepam (Ativan Tab) 0.5 mg Q6H PRN PO 11/05/16 10:45 12/05/16 10:44 11/08/16 03:03 0.5 MG Nystatin (Mycostatin Powder) 1 appln BID EXT 11/05/16 21:00 12/05/16 20:59 11/13/16 07:51 1 APPLN Ondansetron HCl (Zofran Odt) 4 mg Q6H PRN PO 11/05/16 10:45 12/05/16 10:44 Pantoprazole Sodium (Protonix Tab) 40 mg QAM PO 11/06/16 09:00 12/06/16 08:59 11/13/16 07:49 40 MG Vancomycin HCl (Vancomycin Oral Soln) 125 mg QAM PO 11/06/16 09:00 11/20/16 08:59 11/13/16 07:48 125 MG Febuxostat (Uloric) 40 mg DAILY@1200 PO 11/05/16 14:00 12/05/16 13:59 11/12/16 13:03 40 MG Lactobacillus Acidophilus (Floranex Tab) 4 tab QPM PO 11/05/16 21:00 12/05/16 20:59 11/12/16 21:44 4 TAB Raspberry (Raspberry Syrup 5ml Cup) 5 ml DAILY PO 11/06/16 09:00 11/20/16 08:59 11/13/16 07:48 5 ML Heparin Sodium (Porcine) (Heparin 10 Unit/ ml 5 ml Flush) 5 ml PRN PRN FLUSH 11/06/16 04:00 12/06/16 03:59 11/13/16 05:05 5 ML Heparin Sodium (Porcine) (Heparin Sq 5000 Unit/0.5ml) 5,000 unit Q12H SQ 11/07/16 02:00 12/07/16 01:59 Sodium Bicarbonate (Sodium Bicarbonate Tab) 650 mg BID PO 11/08/16 11:00 12/08/16 10:59 11/13/16 07:49 650 MG Carvedilol (Coreg Tab) 12.5 mg BID PO 11/08/16 11:00 12/08/16 10:59 11/13/16 07:49 12.5 MG Loteprednol Etabonate 1 drops 1 drops QAM OPB 11/10/16 08:00 12/05/16 13:59 11/13/16 07:49 1 DROPS Ertapenem/Sodium Chloride (Invanz Iv/Nss 50ml) 55 ml @ 120 mls/hr Q24H IV 11/09/16 16:00 11/19/16 15:59 11/12/16 16:09 120 MLS/HR Miscellaneous Information (Pharmacy Consult) 1 ea UD PRN N/A 11/09/16 15:45 12/09/16 15:44 Impression (1) Hyperkalemia (2) Acute kidney injury (3) Acute on chronic renal failure (4) CKD (chronic kidney disease) stage 5, GFR less than 15 ml/min (5) Recurrent UTI (6) Generalized weakness (7) Bilateral hydronephrosis (8) Coronary artery disease (9) Systolic CHF Mrs. Chase was admitted with generalized weakness in the setting of advanced renal failure and hyperkalemia. Urine culture growing klebsiella. She was started on Ertapenem for Klebsiella UTI. Mr. Chase raised concerns that personal goals of care are not consistent with hospice. He remains hopeful that Tiana can continue her current quality of life with her renal dysfunction. We again discussed the advanced nature of her kidney disease. We discussed the limited life expectancy associated with ESRD. The patient and her has been advised that there is no intervention at this time that is likely to improve renal function in any significant way. 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 difficile colitis, ICM w/ LVEF 25%, moderate MR, pulmonary HTN and moderate TR, AICD placement, hypercholesterolemia, chronic respiratory failure requiring ATC 02, obesity ( BMI 32), general debilitated condition Recommendations Klebsiella bacteriuria, chronic colonization, history of recurrent UTI, indwelling stents with persistent hydroureteronephrosis: -- Ertapenem per ID -- Patient and her are requesting a second opinion from Urology ESRD: -- Medications currently appropriately dosed for renal function -- Patient has refused dialysis ICMO: -- Despite relative hypotension - appears to be tolerating carvedilol -- ICD intact Anemia -- Epogen 47689 units given 11/06/16 and 11/11/16
[2016-11-13] MEDS: FEBUXOSTAT 40 MG TAB PO SCH (12:02)
--- NOTE | 2016-11-13 13:56 | Progress Note ---
Subjective Date of Service: November 13, 2016. Subjective this pt is pleasantly confused, has no focal complaints her is at the bedside and updated with plan discussion with urology will possibly include stent removal Problem List Medical Problems: (1) Acute kidney failure Status: Acute (2) Acute on chronic kidney failure Status: Acute (3) Acute renal failure Status: Acute (4) Altered mental status Status: Acute (5) Altered mental status Status: Acute (6) ARF (acute renal failure) Status: Acute (7) CRD (chronic renal disease) Status: Acute (8) Dehydration Status: Acute (9) Dehydration Status: Acute (10) Fever Status: Acute (11) Hyperkalemia Status: Acute (12) Hyperkalemia Status: Acute (13) Hyperkalemia Status: Acute (14) Hypomagnesemia Status: Acute (15) PICC (peripherally inserted central catheter) in place Status: Acute (16) Pneumonia Status: Acute (17) Renal failure Status: Acute (18) Renal insufficiency Status: Acute (19) Renal insufficiency Status: Acute (20) Sepsis Status: Acute (21) Sepsis Status: Acute (22) Uremia Status: Acute (23) UTI (urinary tract infection) Status: Acute (24) UTI (urinary tract infection) Status: Acute (25) UTI (urinary tract infection) Status: Acute (26) Weakness Status: Acute (27) Weakness Status: Acute (28) Weakness Status: Acute (29) Weakness Status: Acute (30) Weakness Status: Acute Review of Systems Constitutional: No chills, No fever, No weakness Respiratory: No cough, No sputum, No wheezing Cardiac: No PND, No chest pain, No edema Abdomen: No diarrhea, No nausea, No pain, No vomiting Objective Vital Signs Date Time Temp Pulse Resp B/P Pulse Ox O2 Delivery O2 Flow Rate FiO2 11/13/16 08:30 Nasal Cannula 2.0 11/13/16 07:18 36.4 78 16 103/67 98 2.0 11/13/16 00:13 36.6 78 16 107/66 99 Nasal Cannula 2.0 11/12/16 23:40 Nasal Cannula 2.0 11/12/16 21:39 80 126/76 11/12/16 17:05 36.6 74 20 102/64 97 2.0 11/12/16 16:00 Nasal Cannula 2.0 Physical Exam General Appearance: WD/WN, + mild distress Neck: supple, no JVD Respiratory/Chest: chest non-tender, lungs clear, normal breath sounds Cardiovascular: regular rate, rhythm, no murmur Abdomen: normal bowel sounds, non tender, soft Extremities: no pedal edema, no calf tenderness Neurologic/Psychiatric: alert, oriented x 3 Laboratory Results Last 24 Hours Test 11/13/16 05:05 White Blood Count 11.13 K/uL Red Blood Count 2.54 M/uL Hemoglobin 8.2 g/dL Hematocrit 25.7 % Mean Corpuscular Volume 101.2 fL Mean Corpuscular Hemoglobin 32.3 pg Mean Corpuscular Hemoglobin Concent 31.9 g/dl RDW Standard Deviation 55.2 fL RDW Coefficient of Variation 14.9 % Platelet Count 125 K/uL Mean Platelet Volume 9.3 fL Sodium Level 147 mmol/L Potassium Level 4.4 mmol/L Chloride Level 111 mmol/L Carbon Dioxide Level 28 mmol/L Anion Gap 8.0 mmol/L Blood Urea Nitrogen 91 mg/dl Creatinine 6.30 mg/dl Est Creatinine Clear Calc Drug Dose 5.8 ml/min Estimated GFR () 6.5 Estimated GFR (Non- 5.6 BUN/Creatinine Ratio 14.4 Random Glucose 96 mg/dl Calcium Level 7.8 mg/dl Assessment and Plan 81yo F admitted with progressive renal failure, previously decided not to have dialysis acute renal failure (ARF) in setting of progressive stage 5 CKD - ARF Cr remains in the 6 range, no real change, discussion of removing stents as not clear if are functioning Nephrology has discussed future plans not to include percutaneous nephrostomy tubes per wishes, did not discuss renal replacement treatment as her electrolytes are stable and fluid balance is not issue at this point Prognosis is extremely poor in light of advanced/progressive disease. klebsiella UTI - remains on ertapenem at 's request. had QTc prolongation with cipro. h/o UVJ obstruction s/p b/l ureteral stents - stents patent on CT but continues with hydronephrosis/dilated ureters. Discussion with Dr Reeves to consider stent removal chronic hypoxic resp failure - remains stable on home O2 amount. DVT proph - heparin BID but patient refusing such. CAD - no ischemic symptoms at this time. Previously Dr Ward has discussed turning off the AICD if she pursues hospice. Continued [facility] stay due to: multiple IV medications needed Discharge planning: home with Hospice
--- NOTE | 2016-11-13 14:24 | Progress Note ---
Progress Note Date of Service November 13, 2016. Progress Note Discussed options with the patient and her . Over the past several days, there have been discussions related to end of life/ hospice care rather than continued interventions. At present, they are not ready to consider these options. We have discussed the role of ureteral stents. Her stents were initially placed secondary to hydronephrosis. Unfortunately, she did not have resolution of her hydro, but she has had recurrent infections/admissions. Her renal function has simultaneous continued a gradual decline. We have previously discussed percutaneous nephrostomy tubes versus simple d/c of her ureteral stents. She had a stent free trial for several months last year - and she had stable kidney function, and not admissions for infections. Overall, they desire stent removal as our next step. I have discussed that her renal function implies limited ability to tolerate a further negative hit, and in turn, there is the potential that removal of the ureteral stents may lead to further decline in function or complete failure. They have expressed excellent understanding. We will tentatively plan for stent removal in the OR (flex scope, monitoring, but limited sedation) on .
[2016-11-13 15:04] VITALS: BP 113/70; PULSE 83; TEMP 36.7; O2SAT 99
[2016-11-13] MEDS: ERTAPENEM IV 500 MG in SODIUM CHLORIDE 0.9% 50ML 50 ML IV SCH (15:38)
[2016-11-13] MEDS: ATORVASTATIN 40 MG TAB PO SCH (20:32)
[2016-11-13] MEDS: LACTOBACILLUS ACIDOPHILUS (FLORANEX) TAB PO SCH (20:32)
[2016-11-13] MEDS: CLOPIDOGREL BISULFATE 75 MG TAB PO SCH (20:32)
[2016-11-13] MEDS: ASPIRIN 81 MG ECTAB PO SCH (20:32)
[2016-11-14 00:02] VITALS: BP 111/67; PULSE 81; TEMP 37.1; O2SAT 98
[2016-11-14] MEDS: HEPARIN SOD 5000 UNIT/0.5 ML CARP SQ SCH ×2 (01:33→14:00)
[2016-11-14 05:49] LABS: HEMATOCRIT 26.3 % (37-47); MEAN CELL VOLUME 100.8 fL (80-100); MEAN CORPUSCULAR HGB CONC 30.8 g/dl (32-36); MEAN PLATELET VOLUME 9.4 fL (7.4-10.4); PLATELET COUNT 126 K/uL (130-400); RED BLOOD COUNT 2.61 M/uL (4.2-5.4); WHITE BLOOD COUNT 10.19 K/uL (4.8-10.8)
[2016-11-14 07:41] VITALS: BP 98/59; PULSE 73; TEMP 36.9; O2SAT 98
[2016-11-14 08:08] LABS: BUN/CREATININE RATIO 13.9 (10-20); CALCIUM 8.1 mg/dl (8.5-10.1); CREATININE 6.2 mg/dl (0.60-1.20); PHOSPHORUS 5.8 mg/dl (2.5-4.9); POTASSIUM 4.6 mmol/L (3.5-5.1)
--- NOTE | 2016-11-14 08:25 | Progress Note ---
Subjective Date of Service: November 14, 2016. Subjective pt remains pleasanlty confused today, at bedside and updated, no active issues, for ureteral stent removal 11/15 Problem List Medical Problems: (1) Acute kidney failure Status: Acute (2) Acute on chronic kidney failure Status: Acute (3) Acute renal failure Status: Acute (4) Altered mental status Status: Acute (5) Altered mental status Status: Acute (6) ARF (acute renal failure) Status: Acute (7) CRD (chronic renal disease) Status: Acute (8) Dehydration Status: Acute (9) Dehydration Status: Acute (10) Fever Status: Acute (11) Hyperkalemia Status: Acute (12) Hyperkalemia Status: Acute (13) Hyperkalemia Status: Acute (14) Hypomagnesemia Status: Acute (15) PICC (peripherally inserted central catheter) in place Status: Acute (16) Pneumonia Status: Acute (17) Renal failure Status: Acute (18) Renal insufficiency Status: Acute (19) Renal insufficiency Status: Acute (20) Sepsis Status: Acute (21) Sepsis Status: Acute (22) Uremia Status: Acute (23) UTI (urinary tract infection) Status: Acute (24) UTI (urinary tract infection) Status: Acute (25) UTI (urinary tract infection) Status: Acute (26) Weakness Status: Acute (27) Weakness Status: Acute (28) Weakness Status: Acute (29) Weakness Status: Acute (30) Weakness Status: Acute Review of Systems Constitutional: No chills, No fever Respiratory: No cough, No shortness of breath Cardiac: No chest pain, No edema Abdomen: No diarrhea, No nausea, No pain, No vomiting Female : No dysuria, No urinary frequency Neurologic: + memory loss, + weakness Psychiatric: + anhedonism, + depression symptoms Objective Vital Signs Date Time Temp Pulse Resp B/P Pulse Ox O2 Delivery O2 Flow Rate FiO2 11/14/16 07:41 36.9 73 16 98/59 98 Nasal Cannula 2.0 11/14/16 00:02 37.1 81 18 111/67 98 Nasal Cannula 2.0 11/14/16 00:00 Nasal Cannula 2.0 11/13/16 16:00 Nasal Cannula 2.0 11/13/16 15:04 36.7 83 16 113/70 99 2.0 11/13/16 08:30 Nasal Cannula 2.0 Physical Exam General Appearance: WD/WN, + mild distress Eyes: PERRL, EOMI Neck: supple, thyroid normal Respiratory/Chest: chest non-tender, lungs clear, normal breath sounds Cardiovascular: regular rate, rhythm, no murmur Abdomen: normal bowel sounds, non tender, soft Extremities: no pedal edema, no calf tenderness Laboratory Results Last 24 Hours Test 11/14/16 05:20 White Blood Count 10.19 K/uL Red Blood Count 2.61 M/uL Hemoglobin 8.1 g/dL Hematocrit 26.3 % Mean Corpuscular Volume 100.8 fL Mean Corpuscular Hemoglobin 31.0 pg Mean Corpuscular Hemoglobin Concent 30.8 g/dl RDW Standard Deviation 54.1 fL RDW Coefficient of Variation 15.0 % Platelet Count 126 K/uL Mean Platelet Volume 9.4 fL Nucleated RBC Absolute Count (auto) 0.04 K/uL Nucleated Red Blood Cells % 0.4 % Sodium Level 147 mmol/L Potassium Level 4.6 mmol/L Chloride Level 111 mmol/L Carbon Dioxide Level 27 mmol/L Anion Gap 9.0 mmol/L Blood Urea Nitrogen 86 mg/dl Creatinine 6.20 mg/dl Est Creatinine Clear Calc Drug Dose 5.9 ml/min Estimated GFR () 6.6 Estimated GFR (Non- 5.7 BUN/Creatinine Ratio 13.9 Random Glucose 90 mg/dl Calcium Level 8.1 mg/dl Phosphorus Level 5.8 mg/dl Albumin 2.7 gm/dl Assessment and Plan 81yo F admitted with progressive renal failure, previously decided not to have dialysis, not to have percutaneous nephrostomy tubes. is relieved to have stents plan on removal 11/15 acute renal failure (ARF) in setting of progressive stage 5 CKD - ARF Cr remains with little change, Nephrology has discussed future plans not to include dialysis or percutaneous nephrostomy tubes per wishes, Prognosis is extremely poor in light of advanced/progressive disease. Removal of stents not guaranteeing no further infections klebsiella UTI - remains on ertapenem at 's request. had QTc prolongation with cipro., will stop 24 hours past stent removal chronic hypoxic resp failure - remains stable on home O2 amount. DVT proph - heparin BID but patient continues to refuse at times CAD - no ischemic symptoms at this time. Previously Dr Ward has discussed turning off the AICD if she pursues hospice. is not at the point to consider hospice Continued [facility] stay due to: multiple IV medications needed Discharge planning: home with Hospice
[2016-11-14] MEDS: Loteprednol Etabonate (Lotemax) OPB SCH (08:49)
[2016-11-14] MEDS: NYSTATIN POWDER 15GM BTL EXT SCH ×2 (08:49→20:06)
[2016-11-14] MEDS: PANTOprazole SOD 40 MG TAB PO SCH (08:49)
[2016-11-14] MEDS: VANCOMYCIN HCL 125 MG/2.5ML SOLN PO SCH (08:50)
[2016-11-14] MEDS: CHOLECALCIFEROL 1000 INTER.UNIT TAB PO SCH (08:50)
[2016-11-14] MEDS: SODIUM BICARBONATE 650 MG TAB PO SCH ×2 (08:50→20:07)
[2016-11-14] MEDS: RASPBERRY SYRUP 5 ML UDP PO SCH (08:50)
[2016-11-14] MEDS: CARVEDILOL 12.5 MG TAB PO SCH ×2 (08:50→20:06)
--- NOTE | 2016-11-14 10:00 | Nephrology Progress Note ---
Nephrology Progress Note Date of Service November 14, 2016. Chief Complaint Acute on chronic renal insufficiency Subjective Mrs. Chase was seen & examined in her hospital room this morning. Her was at her bedside. Mrs. Chase denied fever, dyspnea, chest discomfort, flank pain, dysuria, nausea or diarrhea. She voiced no new medical concerns. Her notes that she is weak but can sit up and get into a wheel chair with assistance. She has not yet been out of bed this hospitalization. Mr. Chaes indicates that his is scheduled for ureteral stent removal tomorrow. Review of Systems Constitutional: No fever Cardiovascular: No chest pain Respiratory: No dyspnea at rest Abdomen: No nausea, No pain, No vomiting Extremities: No leg edema Neurologic: + weakness A complete review of systems was performed. Pertinent positives are noted above. All other systems are negative. Vital Signs Last 8 Hrs Date Time Temp Pulse Resp B/P Pulse Ox O2 Delivery O2 Flow Rate FiO2 11/14/16 07:41 36.9 73 16 98/59 98 Nasal Cannula 2.0 Last Recorded Weight Weight (Kilograms): 62.200 Physical Exam General Appearance: no apparent distress, + pertinent finding (frail appearing) Head: atraumatic (temporal muscle wasting) Eyes: PERRL, EOMI Neck: no adenopathy Respiratory/Chest: lungs clear, no respiratory distress Cardiovascular: regular rate, rhythm, no murmur Abdomen/GI: normal bowel sounds, non tender, soft Extremities/Musculoskelatal: no calf tenderness, no pedal edema Neurologic/Psych: alert Family History Diabetes mellitus Other cardiovascular diseases Stroke Social History Smoking Status: Never smoker Alcohol Use: none Drug Use: none Marital Status: Housing Status: lives with significant other 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 Laboratory Results Past 24 Hours 11/14/16 05:20 11/14/16 05:20 Test 11/14/16 05:20 Red Blood Count 2.61 M/uL (4.2-5.4) Mean Corpuscular Volume 100.8 fL (80-100) Mean Corpuscular Hemoglobin 31.0 pg (25-34) Mean Corpuscular Hemoglobin Concent 30.8 g/dl (32-36) RDW Standard Deviation 54.1 fL (36.4-46.3) RDW Coefficient of Variation 15.0 % (11.5-14.5) Mean Platelet Volume 9.4 fL (7.4-10.4) Nucleated RBC Absolute Count (auto) 0.04 K/uL (0-0) Nucleated Red Blood Cells % 0.4 % Anion Gap 9.0 mmol/L (3-11) Est Creatinine Clear Calc Drug Dose 5.9 ml/min Estimated GFR () 6.6 Estimated GFR (Non- 5.7 BUN/Creatinine Ratio 13.9 (10-20) Calcium Level 8.1 mg/dl (8.5-10.1) Phosphorus Level 5.8 mg/dl (2.5-4.9) Albumin 2.7 gm/dl (3.4-5.0) Allergies Coded Allergies: Sulfa Antibiotics (Verified Allergy, Intermediate, BODY SWELLING,NAUSEA AND VOMITNG, 11/05/16) Penicillins (Verified Allergy, Unknown, Tolerates Primaxin, does NOT tolerate ZOSYN, 11/05/16) PER PCP RECORDS Medications Current Inpatient Medications Medications (Trade) Dose Ordered Sig/Helder Route Start Time Stop Time Status Last Admin Dose Admin Acetaminophen (Tylenol Tab) 650 mg Q4H PRN PO 11/05/16 10:45 12/05/16 10:44 Ondansetron HCl (Zofran Inj) 4 mg Q6H PRN IV 11/05/16 10:45 12/05/16 10:44 11/09/16 06:36 4 MG Aspirin (Ecotrin Tab) 81 mg QPM PO 11/05/16 21:00 12/05/16 20:59 11/13/16 20:32 81 MG Atorvastatin Calcium (Lipitor Tab) 80 mg QPM PO 11/05/16 21:00 12/05/16 20:59 11/13/16 20:32 80 MG Cholecalciferol (Vitamin D Tab) 1,000 inter.unit DAILY PO 11/06/16 09:00 12/06/16 08:59 11/14/16 08:50 1,000 INTER.UNIT Clopidogrel Bisulfate (plAVix TAB) 75 mg QPM PO 11/05/16 21:00 12/05/16 20:59 11/13/16 20:32 75 MG Lorazepam (Ativan Tab) 0.5 mg Q6H PRN PO 11/05/16 10:45 12/05/16 10:44 11/08/16 03:03 0.5 MG Nystatin (Mycostatin Powder) 1 appln BID EXT 11/05/16 21:00 12/05/16 20:59 11/14/16 08:49 1 APPLN Ondansetron HCl (Zofran Odt) 4 mg Q6H PRN PO 11/05/16 10:45 12/05/16 10:44 Pantoprazole Sodium (Protonix Tab) 40 mg QAM PO 11/06/16 09:00 12/06/16 08:59 11/14/16 08:49 40 MG Vancomycin HCl (Vancomycin Oral Soln) 125 mg QAM PO 11/06/16 09:00 11/20/16 08:59 11/14/16 08:50 125 MG Febuxostat (Uloric) 40 mg DAILY@1200 PO 11/05/16 14:00 12/05/16 13:59 11/13/16 12:02 40 MG Lactobacillus Acidophilus (Floranex Tab) 4 tab QPM PO 11/05/16 21:00 12/05/16 20:59 11/13/16 20:32 4 TAB Raspberry (Raspberry Syrup 5ml Cup) 5 ml DAILY PO 11/06/16 09:00 11/20/16 08:59 11/14/16 08:50 5 ML Heparin Sodium (Porcine) (Heparin 10 Unit/ ml 5 ml Flush) 5 ml PRN PRN FLUSH 11/06/16 04:00 12/06/16 03:59 11/14/16 05:17 5 ML Heparin Sodium (Porcine) (Heparin Sq 5000 Unit/0.5ml) 5,000 unit Q12H SQ 11/07/16 02:00 12/07/16 01:59 Sodium Bicarbonate (Sodium Bicarbonate Tab) 650 mg BID PO 11/08/16 11:00 12/08/16 10:59 11/14/16 08:50 650 MG Carvedilol (Coreg Tab) 12.5 mg BID PO 11/08/16 11:00 12/08/16 10:59 11/13/16 20:32 12.5 MG Loteprednol Etabonate 1 drops 1 drops QAM OPB 11/10/16 08:00 12/05/16 13:59 11/14/16 08:49 1 DROPS Ertapenem/Sodium Chloride (Invanz Iv/Nss 50ml) 55 ml @ 120 mls/hr Q24H IV 11/09/16 16:00 11/19/16 15:59 11/13/16 15:38 120 MLS/HR Miscellaneous Information (Pharmacy Consult) 1 ea UD PRN N/A 11/09/16 15:45 12/09/16 15:44 Impression (1) Acute kidney injury (2) Acute on chronic renal failure (3) CKD (chronic kidney disease) stage 5, GFR less than 15 ml/min (4) Hyperkalemia (5) Recurrent UTI (6) Generalized weakness (7) Bilateral hydronephrosis (8) Coronary artery disease (9) Systolic CHF Mrs. Chase was admitted with generalized weakness in the setting of advanced renal failure and hyperkalemia. Urine culture growing klebsiella. She is being treated w/ Ertapenem. Patient has renal failure. 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 difficile colitis, ICM w/ LVEF 25%, moderate MR, pulmonary HTN and moderate TR, AICD placement, hypercholesterolemia, chronic respiratory failure requiring ATC 02, obesity ( BMI 32), general debilitated condition Recommendations RENAL FAILURE: -- EGFR is now < 10 cc/min -- Patient has refused dialysis -- Volume status and electrolyte balance remain acceptable at this time. Continue to monitor -- Patient is scheduled for bilateral ureteral stent removal tomorrow. Discussed possible outcomes in detail w/ Mr Chase this morning. He understands that Key's kidney function may not improve following stent removal. If this occurs then the options are (1) new ureteral stents, (2) percutaneous nephrostomy tubes, or (3) hospice. Mr. Chase wants to observe his 's response to ureteral stent removal. He does not feel that she would physically tolerate the procedure for percutaneous nephrostomy placement. ANEMIA: -- Epogen [id number] units given 11/06/16 and 11/11/16 ID: -- Ertapenem per ID ICMO: -- Despite relative hypotension - appears to be tolerating carvedilol -- ICD intact
[2016-11-14] MEDS: FEBUXOSTAT 40 MG TAB PO SCH (12:30)
--- NOTE | 2016-11-14 14:32 | Anesthesiology Progress Note ---
Pre-OP Anesthesia Assessment Date of Note November 14, 2016. Notes I saw this pt for cysto, removal of b/l ureteral stents by Dr. Reeves tomorrow. She has a complicated history. Urologically, she's had recurrent UTIs , hydronephrosis, ? UVJ obstruction for which she had ureteral stents placed several months ago. She was just discharged on 10/23 w/ a UTI. Cr 4.2 at that time but she has refused HD. Since then she's had progressive, generalized weakness. Cr found to be 7.4. Since then it has come down to 6.2. Lytes and volume status are now acceptable. She's again being treated for UTI. CT shows b/ l hydronephrosis, worsened from prior despite the stents, so the plan is to remove the stents. PMH also includes CAD s/p ID in per pt's . No coronary stents placed but she did have a pacer/ICD placed at the time for ischemic CM. Most recent EF 35-40% in 05/2016. Some notes mention pulmonary HTN but this is not mentioned on the 05/2016 echo. She wears 2L O2 at home, has stage V CKD w/ chronic anemia. Vitals have been stable. Airway, heart, lung exams benign. Labs significant for Hgb 8.1, BUN 86, Cr 6.2, K normal. No volume overload on CXR. This procedure should be able to be accomplished w/ IV sedation which she tolerated on 08/21. I discussed this w/ the pt and her and had him sign consent. She'll be NPO after midnight except sips of water w/ meds.
[2016-11-14 15:29] VITALS: BP 107/63; PULSE 78; TEMP 36.9; O2SAT 98
[2016-11-14] MEDS: ERTAPENEM IV 500 MG in SODIUM CHLORIDE 0.9% 50ML 50 ML IV SCH (16:26)
[2016-11-14] MEDS: ATORVASTATIN 40 MG TAB PO SCH (20:07)
[2016-11-14] MEDS: LACTOBACILLUS ACIDOPHILUS (FLORANEX) TAB PO SCH (20:07)
[2016-11-14] MEDS: CLOPIDOGREL BISULFATE 75 MG TAB PO SCH (20:07)
[2016-11-14] MEDS: ASPIRIN 81 MG ECTAB PO SCH (20:07)
[2016-11-14 23:52] VITALS: BP 116/66; PULSE 81; TEMP 37; O2SAT 98
[2016-11-15] VITALS (11 sets, daily range): BP systolic 112–148; BP diastolic 61–83; PULSE 69–83; TEMP 36.3–36.6; O2SAT 98–100
[2016-11-15] MEDS: HEPARIN SOD 5000 UNIT/0.5 ML CARP SQ SCH ×2 (01:02→13:06)
[2016-11-15 05:58] LABS: HEMATOCRIT 25.2 % (37-47); MEAN CELL VOLUME 101.6 fL (80-100); MEAN CORPUSCULAR HEMOGLOBIN 31.5 pg (25-34); MEAN PLATELET VOLUME 9.6 fL (7.4-10.4); PLATELET COUNT 124 K/uL (130-400); RED BLOOD COUNT 2.48 M/uL (4.2-5.4); WHITE BLOOD COUNT 9.24 K/uL (4.8-10.8)
[2016-11-15] MEDS: ONDANSETRON INJ 2 MG/ML 2 ML VIAL IV PRN (06:10)
[2016-11-15 06:56] LABS: BUN/CREATININE RATIO 13.9 (10-20); CALCIUM 8.1 mg/dl (8.5-10.1); CREATININE 6.1 mg/dl (0.60-1.20); POTASSIUM 4.5 mmol/L (3.5-5.1)
[2016-11-15] MEDS: RASPBERRY SYRUP 5 ML UDP PO SCH (07:40)
[2016-11-15] MEDS: CARVEDILOL 12.5 MG TAB PO SCH ×2 (07:40→20:42)
[2016-11-15] MEDS: Loteprednol Etabonate (Lotemax) OPB SCH (07:40)
[2016-11-15] MEDS: PANTOprazole SOD 40 MG TAB PO SCH (07:40)
[2016-11-15] MEDS: NYSTATIN POWDER 15GM BTL EXT SCH ×2 (07:40→20:41)
[2016-11-15] MEDS: VANCOMYCIN HCL 125 MG/2.5ML SOLN PO SCH (07:40)
[2016-11-15] MEDS: SODIUM BICARBONATE 650 MG TAB PO SCH (07:41)
[2016-11-15] MEDS: CHOLECALCIFEROL 1000 INTER.UNIT TAB PO SCH (07:41)
[2016-11-15] MEDS ORDERED: NURSING VERBAL MED ORDER ONE (08:00)
--- NOTE | 2016-11-15 08:08 | Progress Note ---
Subjective Date of Service: Nov 15, 2016. Subjective Pt evaluation today including: conversation w/ patient, chart review, lab review Pt pending cysto with bilateral ureteral stent removal this morning. Cr remains stable, but elevated at 6.1. Pt denies pain. Pt's upset this morning that his will need to wait until this afternoon for stent removal "in her condition." He is upset she will be NPO until later this afternoon. Problem List Medical Problems: (1) Acute kidney failure Status: Acute (2) Acute on chronic kidney failure Status: Acute (3) Acute renal failure Status: Acute (4) Altered mental status Status: Acute (5) Altered mental status Status: Acute (6) ARF (acute renal failure) Status: Acute (7) CRD (chronic renal disease) Status: Acute (8) Dehydration Status: Acute (9) Dehydration Status: Acute (10) Fever Status: Acute (11) Hyperkalemia Status: Acute (12) Hyperkalemia Status: Acute (13) Hyperkalemia Status: Acute (14) Hypomagnesemia Status: Acute (15) PICC (peripherally inserted central catheter) in place Status: Acute (16) Pneumonia Status: Acute (17) Renal failure Status: Acute (18) Renal insufficiency Status: Acute (19) Renal insufficiency Status: Acute (20) Sepsis Status: Acute (21) Sepsis Status: Acute (22) Uremia Status: Acute (23) UTI (urinary tract infection) Status: Acute (24) UTI (urinary tract infection) Status: Acute (25) UTI (urinary tract infection) Status: Acute (26) Weakness Status: Acute (27) Weakness Status: Acute (28) Weakness Status: Acute (29) Weakness Status: Acute (30) Weakness Status: Acute Review of Systems Constitutional: No fever, No chills Respiratory: No shortness of breath Cardiac: No chest pain Abdomen: No pain, No nausea, No vomiting Objective Vital Signs Date Time Temp Pulse Resp B/P (MAP) Pulse Ox O2 Delivery O2 Flow Rate FiO2 11/15/16 07:37 36.4 73 18 113/68 (83) 99 Nasal Cannula 2.0 11/15/16 00:45 Nasal Cannula 2.0 11/14/16 23:52 37.0 81 18 116/66 (83) 98 2.0 11/14/16 16:29 Nasal Cannula 2.0 11/14/16 15:29 36.9 78 20 107/63 (78 98 Nasal Cannula 2.0 Physical Exam General Appearance: no apparent distress, + obese Eyes: normal inspection ENT: hearing grossly normal Neck: no JVD Respiratory/Chest: no respiratory distress, no accessory muscle use Cardiovascular: no JVD Extremities: normal inspection Neurologic/Psychiatric: alert, normal mood/affect, oriented x 3 Skin: normal color Laboratory Results Last 24 Hours Test 11/15/16 05:15 White Blood Count 9.24 K/uL Red Blood Count 2.48 M/uL Hemoglobin 7.8 g/dL Hematocrit 25.2 % Mean Corpuscular Volume 101.6 fL Mean Corpuscular Hemoglobin 31.5 pg Mean Corpuscular Hemoglobin Concent 31.0 g/dl RDW Standard Deviation 55.0 fL RDW Coefficient of Variation 15.0 % Platelet Count 124 K/uL Mean Platelet Volume 9.6 fL Nucleated RBC Absolute Count (auto) 0.02 K/uL Nucleated Red Blood Cells % 0.2 % Sodium Level 147 mmol/L Potassium Level 4.5 mmol/L Chloride Level 111 mmol/L Carbon Dioxide Level 27 mmol/L Anion Gap 9.0 mmol/L Blood Urea Nitrogen 85 mg/dl Creatinine 6.10 mg/dl Est Creatinine Clear Calc Drug Dose 6.0 ml/min Estimated GFR () 6.8 Estimated GFR (Non- 5.8 BUN/Creatinine Ratio 13.9 Random Glucose 89 mg/dl Calcium Level 8.1 mg/dl Assessment and Plan A/P: ARF, bilateral hydro Plan to proceed to the OR later this afternoon for cysto and bilateral ureteral stent removal with Dr. Reeves as previously planned. I did discuss with her that her status is not urgent to bump other OR cases at this this morning. Will have nursing contact the hospitalist to see if they would like to provide Mrs. Chase with some IVF until her stent removal this afternoon. Risks and benefits of the procedure discussed with the pt. All questions answered. He understands that her stents will be removed, and not replaced at this time. He has signed consent as he is the POA. Continued [facility] stay due to: multiple IV medications needed Discharge planning: home with Hospice
[2016-11-15] MEDS: SODIUM CHLORIDE 0.9% 1000ML 1,000 ML IV SCH ×2 (09:16→20:41)
--- NOTE | 2016-11-15 09:35 | Nephrology Progress Note ---
Nephrology Progress Note Date of Service Nov 15, 2016. Chief Complaint Acute on chronic renal insufficiency Subjective Mrs. Chase was seen & examined in her hospital room this morning. Her was at her bedside. Mrs. hCase denied fever, dyspnea, chest discomfort, flank pain, dysuria, nausea or diarrhea. She voiced no new medical concerns. She is awaiting removal of her ureteral stents this afternoon. Kidney function is unchanged. Creatinine is 6.1 this morning. I&O's are not documented. Patient does report that she is making urine. The patient denies overt blood loss. Hgb has dropped to 7.8 this morning. Stool was guaiac positive x 1 this hospitalization. Review of Systems Constitutional: No fever Cardiovascular: No chest pain Respiratory: No dyspnea at rest Abdomen: No pain, No nausea, No vomiting Extremities: No leg edema A complete review of systems was performed. Pertinent positives are noted above. All other systems are negative. Vital Signs Last 8 Hrs Date Time Temp Pulse Resp B/P (MAP) Pulse Ox O2 Delivery O2 Flow Rate FiO2 11/15/16 07:37 36.4 73 18 113/68 (83) 99 Nasal Cannula 2.0 Last Recorded Weight Weight (Kilograms): 62.200 Physical Exam General Appearance: no apparent distress Head: atraumatic Eyes: PERRL Neck: no adenopathy Respiratory/Chest: lungs clear, no respiratory distress Cardiovascular: regular rate, rhythm Abdomen/GI: normal bowel sounds, non tender, soft Extremities/Musculoskelatal: no calf tenderness, no pedal edema Neurologic/Psych: alert Family History Diabetes mellitus Other cardiovascular diseases Stroke Social History Smoking Status: Never smoker Alcohol Use: none Drug Use: none Marital Status: Housing Status: lives with significant other 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 Laboratory Results Past 24 Hours 11/15/16 05:15 11/15/16 05:15 Test 11/15/16 05:15 Red Blood Count 2.48 M/uL (4.2-5.4) Mean Corpuscular Volume 101.6 fL (80-100) Mean Corpuscular Hemoglobin 31.5 pg (25-34) Mean Corpuscular Hemoglobin Concent 31.0 g/dl (32-36) RDW Standard Deviation 55.0 fL (36.4-46.3) RDW Coefficient of Variation 15.0 % (11.5-14.5) Mean Platelet Volume 9.6 fL (7.4-10.4) Nucleated RBC Absolute Count (auto) 0.02 K/uL (0-0) Nucleated Red Blood Cells % 0.2 % Anion Gap 9.0 mmol/L (3-11) Est Creatinine Clear Calc Drug Dose 6.0 ml/min Estimated GFR () 6.8 Estimated GFR (Non- 5.8 BUN/Creatinine Ratio 13.9 (10-20) Calcium Level 8.1 mg/dl (8.5-10.1) Allergies Coded Allergies: Sulfa Antibiotics (Verified Allergy, Intermediate, BODY SWELLING,NAUSEA AND VOMITNG, 11/05/16) Penicillins (Verified Allergy, Unknown, Tolerates Primaxin, does NOT tolerate ZOSYN, 11/05/16) PER PCP RECORDS Medications Current Inpatient Medications Medications (Trade) Dose Ordered Sig/Helder Route Start Time Stop Time Status Last Admin Dose Admin Acetaminophen (Tylenol Tab) 650 mg Q4H PRN PO 11/05/16 10:45 12/05/16 10:44 Ondansetron HCl (Zofran Inj) 4 mg Q6H PRN IV 11/05/16 10:45 12/05/16 10:44 11/15/16 06:10 4 MG Aspirin (Ecotrin Tab) 81 mg QPM PO 11/05/16 21:00 12/05/16 20:59 11/14/16 20:07 81 MG Atorvastatin Calcium (Lipitor Tab) 80 mg QPM PO 11/05/16 21:00 12/05/16 20:59 11/14/16 20:07 80 MG Cholecalciferol (Vitamin D Tab) 1,000 inter.unit DAILY PO 11/06/16 09:00 12/06/16 08:59 11/15/16 07:41 1,000 INTER.UNIT Clopidogrel Bisulfate (plAVix TAB) 75 mg QPM PO 11/05/16 21:00 12/05/16 20:59 11/14/16 20:07 75 MG Lorazepam (Ativan Tab) 0.5 mg Q6H PRN PO 11/05/16 10:45 12/05/16 10:44 11/08/16 03:03 0.5 MG Nystatin (Mycostatin Powder) 1 appln BID EXT 11/05/16 21:00 12/05/16 20:59 11/15/16 07:40 1 APPLN Ondansetron HCl (Zofran Odt) 4 mg Q6H PRN PO 11/05/16 10:45 12/05/16 10:44 Pantoprazole Sodium (Protonix Tab) 40 mg QAM PO 11/06/16 09:00 12/06/16 08:59 11/15/16 07:40 40 MG Vancomycin HCl (Vancomycin Oral Soln) 125 mg QAM PO 11/06/16 09:00 11/20/16 08:59 11/15/16 07:40 125 MG Febuxostat (Uloric) 40 mg DAILY@1200 PO 11/05/16 14:00 12/05/16 13:59 11/14/16 12:30 40 MG Lactobacillus Acidophilus (Floranex Tab) 4 tab QPM PO 11/05/16 21:00 12/05/16 20:59 11/14/16 20:07 4 TAB Raspberry (Raspberry Syrup 5ml Cup) 5 ml DAILY PO 11/06/16 09:00 11/20/16 08:59 11/15/16 07:40 5 ML Heparin Sodium (Porcine) (Heparin 10 Unit/ ml 5 ml Flush) 5 ml PRN PRN FLUSH 11/06/16 04:00 12/06/16 03:59 11/15/16 06:11 5 ML Heparin Sodium (Porcine) (Heparin Sq 5000 Unit/0.5ml) 5,000 unit Q12H SQ 11/07/16 02:00 12/07/16 01:59 11/15/16 01:02 5,000 UNIT Sodium Bicarbonate (Sodium Bicarbonate Tab) 650 mg BID PO 11/08/16 11:00 12/08/16 10:59 11/15/16 07:41 650 MG Carvedilol (Coreg Tab) 12.5 mg BID PO 11/08/16 11:00 12/08/16 10:59 11/15/16 07:40 12.5 MG Loteprednol Etabonate (Lotemax 0.5%) 1 drops QAM OPB 11/10/16 08:00 12/05/16 13:59 11/15/16 07:40 1 DROPS Ertapenem 500 mg/ Sodium Chloride 55 ml @ 120 mls/hr Q24H IV 11/09/16 16:00 11/19/16 15:59 11/14/16 16:26 120 MLS/HR Miscellaneous Information (Pharmacy Consult) 1 ea UD PRN N/A 11/09/16 15:45 12/09/16 15:44 Sodium Chloride 1,000 ml @ 80 mls/hr [id number] IV 11/15/16 08:00 12/15/16 07:59 11/15/16 09:16 80 MLS/HR Impression (1) Acute kidney injury (2) Acute on chronic renal failure (3) CKD (chronic kidney disease) stage 5, GFR less than 15 ml/min (4) Hyperkalemia (5) Recurrent UTI (6) Generalized weakness (7) Bilateral hydronephrosis (8) Coronary artery disease (9) Systolic CHF Mrs. Chase was admitted with generalized weakness in the setting of advanced renal failure and hyperkalemia. Urine culture growing klebsiella. She is being treated w/ Ertapenem. Patient has renal failure. 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 difficile colitis, ICM w/ LVEF 25%, moderate MR, pulmonary HTN and moderate TR, AICD placement, hypercholesterolemia, chronic respiratory failure requiring ATC 02, obesity ( BMI 32), general debilitated condition Recommendations RENAL FAILURE: -- EGFR remains < 10 cc/min -- Patient has refused dialysis -- Will reduce NaHCO3 to one tablet daily due to progressive metabolic alkalosis. Will reorder PRP for am -- Patient is scheduled for bilateral ureteral stent removal this afternoon. Yesteday I diiscussed possible outcomes in detail w/ Mr Chase. He understands that Key's kidney function may not improve following stent removal. If this occurs then the options are (1) new ureteral stents, (2) percutaneous nephrostomy tubes, or (3) hospice. Mr. Chase wants to observe his 's response to ureteral stent removal. He does not feel that she would physically tolerate the procedure for percutaneous nephrostomy placement. ANEMIA: -- Epogen [id number] units given 11/06/16 and 11/11/16 -- No overt blood loss but stool is guaiac positive and Hgb has dropped to 7.8. Consent for blood transfusion reviewed and signed by Mr. Chase. Will order 1 unit PRBC this am (anemia in the setting of ICM) -- Will recheck H&H in am ID: -- Ertapenem per ID ICM: -- Despite relative hypotension - appears to be tolerating carvedilol -- AICD intact
[2016-11-15] MEDS: FEBUXOSTAT 40 MG TAB PO SCH (12:08)
--- NOTE | 2016-11-15 13:17 | Progress Note ---
Subjective Date of Service: Nov 15, 2016. Subjective pt and are awaiting stent removal, no new issues overnight. Problem List Medical Problems: (1) Acute kidney failure Status: Acute (2) Acute on chronic kidney failure Status: Acute (3) Acute renal failure Status: Acute (4) Altered mental status Status: Acute (5) Altered mental status Status: Acute (6) ARF (acute renal failure) Status: Acute (7) CRD (chronic renal disease) Status: Acute (8) Dehydration Status: Acute (9) Dehydration Status: Acute (10) Fever Status: Acute (11) Hyperkalemia Status: Acute (12) Hyperkalemia Status: Acute (13) Hyperkalemia Status: Acute (14) Hypomagnesemia Status: Acute (15) PICC (peripherally inserted central catheter) in place Status: Acute (16) Pneumonia Status: Acute (17) Renal failure Status: Acute (18) Renal insufficiency Status: Acute (19) Renal insufficiency Status: Acute (20) Sepsis Status: Acute (21) Sepsis Status: Acute (22) Uremia Status: Acute (23) UTI (urinary tract infection) Status: Acute (24) UTI (urinary tract infection) Status: Acute (25) UTI (urinary tract infection) Status: Acute (26) Weakness Status: Acute (27) Weakness Status: Acute (28) Weakness Status: Acute (29) Weakness Status: Acute (30) Weakness Status: Acute Review of Systems Constitutional: No fever, No chills, No weakness Respiratory: No cough, No shortness of breath, No dyspnea on exertion Cardiac: No chest pain, No edema, No claudication Abdomen: No pain, No nausea, No vomiting, No diarrhea Female : + urinary frequency, + incontinence, No dysuria Neurologic: + memory loss, + weakness Psychiatric: + depression symptoms, + anhedonism Objective Vital Signs Date Time Temp Pulse Resp B/P (MAP) Pulse Ox O2 Delivery O2 Flow Rate FiO2 11/15/16 12:22 36.5 73 20 116/69 11/15/16 08:00 Nasal Cannula 2.0 11/15/16 07:37 36.4 73 18 113/68 (83) 99 Nasal Cannula 2.0 11/15/16 00:45 Nasal Cannula 2.0 11/14/16 23:52 37.0 81 18 116/66 (83) 98 2.0 11/14/16 16:29 Nasal Cannula 2.0 11/14/16 15:29 36.9 78 20 107/63 (11) 98 Nasal Cannula 2.0 Physical Exam General Appearance: WD/WN, + mild distress Eyes: PERRL, EOMI Neck: supple, no JVD Respiratory/Chest: chest non-tender, lungs clear Cardiovascular: regular rate, rhythm, no murmur Abdomen: normal bowel sounds, non tender, soft Extremities: no pedal edema, no calf tenderness Neurologic/Psychiatric: alert, + disoriented Laboratory Results Last 24 Hours Test 11/15/16 05:15 White Blood Count 9.24 K/uL Red Blood Count 2.48 M/uL Hemoglobin 7.8 g/dL Hematocrit 25.2 % Mean Corpuscular Volume 101.6 fL Mean Corpuscular Hemoglobin 31.5 pg Mean Corpuscular Hemoglobin Concent 31.0 g/dl RDW Standard Deviation 55.0 fL RDW Coefficient of Variation 15.0 % Platelet Count 124 K/uL Mean Platelet Volume 9.6 fL Nucleated RBC Absolute Count (auto) 0.02 K/uL Nucleated Red Blood Cells % 0.2 % Sodium Level 147 mmol/L Potassium Level 4.5 mmol/L Chloride Level 111 mmol/L Carbon Dioxide Level 27 mmol/L Anion Gap 9.0 mmol/L Blood Urea Nitrogen 85 mg/dl Creatinine 6.10 mg/dl Est Creatinine Clear Calc Drug Dose 6.0 ml/min Estimated GFR () 6.8 Estimated GFR (Non- 5.8 BUN/Creatinine Ratio 13.9 Random Glucose 89 mg/dl Calcium Level 8.1 mg/dl Assessment and Plan 81yo F admitted with progressive renal failure, previously decided not to have dialysis, not to have percutaneous nephrostomy tubes. is relieved to have stents plan on removal 11/15 acute renal failure (ARF) in setting of progressive stage 5 CKD - ARF Cr remains flat with little change, Nephrology has discussed future plans not to include dialysis or percutaneous nephrostomy tubes per wishes, Prognosis is extremely poor in light of advanced/progressive disease. Removal of stents not guaranteeing no further infections, asked to consider plan of care or hospice if she declines once stents removed klebsiella UTI - remains on ertapenem will plan on 24 hours past stent removal chronic hypoxic resp failure -nasal canulae oxygen DVT proph - heparin BID but patient continues to refuse at times CAD - no ischemic symptoms at this time. Previously Dr Ward has discussed turning off the AICD if she pursues hospice. is not at the point to consider hospice but may consider if worsened renal function after stent removal only to point if fluid balance issues arise Continued [facility] stay due to: multiple IV medications needed Discharge planning: home with Hospice
[2016-11-15] MEDS ORDERED: PROPOFOL IV EMULSION 10 MG/ML 20 ML VIAL IV ONE (13:43)
[2016-11-15] MEDS ORDERED: FENTANYL CITRATE INJ 50 MCG/1 ML 2 ML VIAL ONE (13:43)
[2016-11-15] MEDS ORDERED: MIDAZOLAM HCL 1 MG/ML 2ML VIAL ONE (13:43)
[2016-11-15] MEDS ORDERED: LIDOCAINE HCL 2% 2 ML VIAL (20MG/ML) ONE (13:43)
[2016-11-15] MEDS ORDERED: CONRAY 30% 150ML BOTTLE ONE (14:12)
[2016-11-15] MEDS ORDERED: MEPERIDINE HCL 25 MG/ML CARP IV PRN (15:00)
[2016-11-15] MEDS ORDERED: ATROPINE SULFATE 0.1 MG/ML 5ML SYR IV PRN (15:00)
[2016-11-15] MEDS ORDERED: LABETALOL HCL IV 5 MG/ML 20ML IV PRN (15:00)
[2016-11-15] MEDS ORDERED: EpHEDrine SULFATE INJ 50 MG/ML AMP IV PRN (15:00)
[2016-11-15] MEDS ORDERED: FLUMAZENIL 0.1 MG/1 ML 10 ML VIAL IV PRN (15:00)
[2016-11-15] MEDS ORDERED: FENTANYL CITRATE INJ 50 MCG/1 ML 2 ML VIAL IV PRN (15:00)
[2016-11-15] MEDS ORDERED: ONDANSETRON INJ 2 MG/ML 2 ML VIAL IV PRN (15:00)
[2016-11-15] MEDS ORDERED: PHENYLEPHRINE 100MCG/ML 5ML SYR IV PRN (15:00)
[2016-11-15] MEDS ORDERED: NALOXONE HCL 0.4 MG/1 ML VIAL/CARP IV PRN (15:00)
[2016-11-15] MEDS ORDERED: HYDROmorphone INJ 2 MG/ML SYR/VIAL IV PRN (15:00)
--- NOTE | 2016-11-15 15:15 | [facility] Post Operative Brief Note ---
Immediate Operative Summary Operative Date Nov 15, 2016. Pre-Operative Diagnosis hydronephrosis; b/l ureteral stents Post-Operative Diagnosis hydronephrosis; b/l ureteral stents Procedure(s) Performed cystoscopy; b/l stent removal Surgeon Cindy Reeves MD [place] Former Surgeon(s) none Estimated Blood Loss 0cc Findings some purulent urine in the bladder. B/l stents easily identified. Patulous ureteral orifices on both sides. Specimens none Drains none Anesthesia MAC Complication(s) None Disposition Recovery Room / PACU (stable)
[2016-11-15] MEDS: ERTAPENEM IV 500 MG in SODIUM CHLORIDE 0.9% 50ML 50 ML IV SCH (16:17)
--- NOTE | 2016-11-15 16:25 | Anesthesiology Progress Note ---
Anesthesia Post Op Note Date & Time Nov 15, 2016 at 16:25 Vital Signs Pain Intensity: 0 Vital Signs Past 12 Hours Date Time Temp Pulse Resp B/P (MAP) Pulse Ox O2 Delivery O2 Flow Rate FiO2 11/15/16 15:45 36.1 66 16 114/57 100 Nasal Cannula 2 11/15/16 15:35 66 16 118/58 100 Mask 10 11/15/16 15:25 71 16 123/79 100 Mask 10 11/15/16 15:15 37.2 75 16 142/76 100 Mask 10 11/15/16 14:15 36.6 74 20 133/63 100 2.0 11/15/16 14:05 36.6 73 20 138/61 100 2.0 11/15/16 13:25 36.5 69 18 119/68 100 2.0 11/15/16 12:55 36.4 73 18 118/66 99 2.0 11/15/16 12:40 36.3 75 18 112/68 99 2.0 11/15/16 12:22 36.5 73 20 116/69 11/15/16 08:00 Nasal Cannula 2.0 11/15/16 07:37 36.4 73 18 113/68 (83) 99 Nasal Cannula 2.0 Notes Mental Status: alert / awake / arousable, participated in evaluation Pt Amnestic to Procedure: Yes Nausea / Vomiting: adequately controlled Pain: adequately controlled Airway Patency, RR, SpO2: stable & adequate BP & HR: stable & adequate Hydration State: stable & adequate Anesthetic Complications: no major complications apparent
--- NOTE | 2016-11-15 17:28 | OPERATIVE REPORT ---
DATE OF OPERATION: 11/15/2016 PREOPERATIVE DIAGNOSES: Bilateral hydronephrosis and ureteral stents. POSTOPERATIVE DIAGNOSES: Bilateral hydronephrosis and ureteral stents. PROCEDURE PERFORMED: Cystoscopy, bilateral stent removal. ANESTHESIA: Sedation. ESTIMATED BLOOD LOSS: 0. URINE OUTPUT: Not recorded. SPECIMENS: None. DRAINS: None. DESCRIPTION OF THE PROCEDURE: Tiana Chase was identified in the preoperative holding area. Appropriate informed consents were reviewed and completed and the patient was transported to the operating suite. She has been on Invanz on the floor and received no additional antibiotics immediately prior to this procedure. Of note as a bit of history, Tiana Chase has indwelling ureteral stents off and on for the last 2 years. These seemingly had mixed results. There has been minimal improvement in her overall renal function; however, she has had recurrent admission secondary to urinary tract infections. Currently, she has a creatinine of approximately 6.0 with stable bilateral hydronephrosis extending from the kidneys down to bladder despite the stents being in appropriate position. She has had refractory infections recently and had her last stent exchange was not particularly long ago. After significant debate and discussion, we elected to remove her stents and allow her trial of stent free. To begin the procedure, I passed a 22-[place] cystoscope with 30 degree lens. She was noted to have fairly purulent urine in her bladder, which was thoroughly irrigated. Following clearing of the urine, I was able to easily identify ureteral stents protruding from the right and left ureteral orifices. Of note, both of these orifices were very patulous and would nearly accommodate a cystoscope. This began on the right side and with a little bit of fluoroscopic guidance, I withdrew the stent. There were no complications and the stent was not encrusted and unwrapped appropriately. I then proceeded to do this. I performed the same procedure on the left. The stent was removed without difficulty. The bladder was rinsed again and then drained. She was then reversed from anesthesia and taken to the PACU in stable condition. I attest to the content of the Intraoperative Record and any orders documented therein. Any exception s are noted below.
[2016-11-15] MEDS: CLOPIDOGREL BISULFATE 75 MG TAB PO SCH (20:42)
[2016-11-15] MEDS: ATORVASTATIN 40 MG TAB PO SCH (20:42)
[2016-11-15] MEDS: ASPIRIN 81 MG ECTAB PO SCH (20:42)
[2016-11-15] MEDS: LACTOBACILLUS ACIDOPHILUS (FLORANEX) TAB PO SCH (20:42)
[2016-11-16 00:01] VITALS: BP 126/62; PULSE 75; TEMP 36.9; O2SAT 99
[2016-11-16] MEDS: HEPARIN SOD 5000 UNIT/0.5 ML CARP SQ SCH ×2 (01:41→13:44)
[2016-11-16] MEDS: ONDANSETRON INJ 2 MG/ML 2 ML VIAL IV PRN (04:58)
[2016-11-16 06:10] LABS: HEMATOCRIT 29.9 % (37-47); MEAN CORPUSCULAR HEMOGLOBIN 30.8 pg (25-34); MEAN CORPUSCULAR HGB CONC 31.1 g/dl (32-36); MEAN PLATELET VOLUME 9.8 fL (7.4-10.4); PLATELET COUNT 114 K/uL (130-400); RED BLOOD COUNT 3.02 M/uL (4.2-5.4); WHITE BLOOD COUNT 8.25 K/uL (4.8-10.8)
[2016-11-16 06:53] LABS: BUN/CREATININE RATIO 12.9 (10-20); CALCIUM 7.8 mg/dl (8.5-10.1); CREATININE 5.4 mg/dl (0.60-1.20); POTASSIUM 4.5 mmol/L (3.5-5.1)
[2016-11-16 07:24] VITALS: BP 130/60; PULSE 78; TEMP 36.5; O2SAT 98
[2016-11-16] MEDS: CARVEDILOL 12.5 MG TAB PO SCH ×2 (08:03→22:09)
[2016-11-16] MEDS: SODIUM CHLORIDE 0.9% 1000ML 1,000 ML IV SCH (08:04)
[2016-11-16] MEDS: CHOLECALCIFEROL 1000 INTER.UNIT TAB PO SCH (08:04)
[2016-11-16] MEDS: PANTOprazole SOD 40 MG TAB PO SCH (08:04)
[2016-11-16] MEDS: SODIUM BICARBONATE 650 MG TAB PO SCH (08:04)
[2016-11-16] MEDS: RASPBERRY SYRUP 5 ML UDP PO SCH (08:04)
[2016-11-16] MEDS: VANCOMYCIN HCL 125 MG/2.5ML SOLN PO SCH (08:04)
[2016-11-16] MEDS: Loteprednol Etabonate (Lotemax) OPB SCH (08:05)
[2016-11-16] MEDS: NYSTATIN POWDER 15GM BTL EXT SCH ×2 (08:07→22:27)
--- NOTE | 2016-11-16 08:08 | Anesthesiology Progress Note ---
Anesthesia Post Op Note Date & Time Nov 16, 2016 at 08:07 Vital Signs Pain Intensity: 0.0 Vital Signs Past 12 Hours Date Time Temp Pulse Resp B/P (MAP) Pulse Ox O2 Delivery O2 Flow Rate FiO2 11/16/16 07:24 36.5 78 18 130/60 (83) 98 2.0 11/16/16 01:40 Nasal Cannula 2.0 11/16/16 00:01 36.9 75 20 126/62 (83) 99 2.0 Notes Mental Status: alert / awake / arousable, participated in evaluation Pt Amnestic to Procedure: Yes Nausea / Vomiting: adequately controlled Pain: adequately controlled Airway Patency, RR, SpO2: stable & adequate BP & HR: stable & adequate Hydration State: stable & adequate Anesthetic Complications: no major complications apparent
[2016-11-16] MEDS: DEXTROSE 5% 1000ML 1,000 ML IV SCH ×2 (09:00→22:14)
--- NOTE | 2016-11-16 09:03 | Progress Note ---
Progress Note Date of Service Nov 16, 2016. Progress Note 81 year old female s/p bilateral stent pull. Doing well post op. She reports no pain or discomfort. Currently pt and pleased with her status. Creatinine has improved. If any further treatment should be needed pt and are aware that perc tubes would be next step- in [place] or [place]. No further management needed at this time.
--- NOTE | 2016-11-16 10:35 | Nephrology Progress Note ---
Nephrology Progress Note Date of Service Nov 16, 2016. Chief Complaint F/U for BONNIE and advanced CKD Subjective Mrs. Chase was seen and examined this am with her at bedside. She was awake, alert, denies any symptoms. She report decent UO. Her mentioned she looks much better today and she has been reading her Nilo for the first time in many days. Cr slightly improved to 5.4 <--6.1 Review of Systems A complete review of systems was performed. Pertinent positives are noted above. All other systems are negative. Vital Signs Last 8 Hrs Date Time Temp Pulse Resp B/P (MAP) Pulse Ox O2 Delivery O2 Flow Rate FiO2 11/16/16 07:24 36.5 78 18 130/60 (83) 98 2.0 11/16/16 01:40 Nasal Cannula 2.0 Last Recorded Weight Weight (Kilograms): 62.200 Physical Exam GENERAL: Elderly female, AAA x 3, pleasant, healthy-appearing, not in any distress. NECK: Supple, no JVD. RESPIRATORY: Normal breathing efforts, no accessory muscle use, clear to auscultation bilaterally, no wheezes or rales. CARDIOVASCULAR: S1, S2 normal, rate rhythm regular. EXTREMITY: No lower extremity edema NEURO: speech fluent. PSYCHIATRY: Normal mood and judgment Family History Diabetes mellitus Other cardiovascular diseases Stroke Social History Smoking Status: Never smoker Alcohol Use: none Drug Use: none Marital Status: Housing Status: lives with significant other 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 Laboratory Results Past 24 Hours 11/16/16 05:42 11/16/16 05:42 Test 11/16/16 05:42 Red Blood Count 3.02 M/uL (4.2-5.4) Mean Corpuscular Volume 99.0 fL (80-100) Mean Corpuscular Hemoglobin 30.8 pg (25-34) Mean Corpuscular Hemoglobin Concent 31.1 g/dl (32-36) RDW Standard Deviation 59.6 fL (36.4-46.3) RDW Coefficient of Variation 16.8 % (11.5-14.5) Mean Platelet Volume 9.8 fL (7.4-10.4) Anion Gap 11.0 mmol/L (3-11) Est Creatinine Clear Calc Drug Dose 6.8 ml/min Estimated GFR () 7.9 Estimated GFR (Non- 6.8 BUN/Creatinine Ratio 12.9 (10-20) Calcium Level 7.8 mg/dl (8.5-10.1) Allergies Coded Allergies: Sulfa Antibiotics (Verified Allergy, Intermediate, BODY SWELLING,NAUSEA AND VOMITNG, 11/15/16) Penicillins (Verified Allergy, Unknown, Tolerates Primaxin, does NOT tolerate ZOSYN, 11/15/16) PER PCP RECORDS Medications Current Inpatient Medications Medications (Trade) Dose Ordered Sig/Helder Route Start Time Stop Time Status Last Admin Dose Admin Acetaminophen (Tylenol Tab) 650 mg Q4H PRN PO 11/05/16 10:45 12/05/16 10:44 Ondansetron HCl (Zofran Inj) 4 mg Q6H PRN IV 11/05/16 10:45 12/05/16 10:44 11/16/16 04:58 4 MG Aspirin (Ecotrin Tab) 81 mg QPM PO 11/05/16 21:00 12/05/16 20:59 11/15/16 20:42 81 MG Atorvastatin Calcium (Lipitor Tab) 80 mg QPM PO 11/05/16 21:00 12/05/16 20:59 11/15/16 20:42 80 MG Cholecalciferol (Vitamin D Tab) 1,000 inter.unit DAILY PO 11/06/16 09:00 12/06/16 08:59 11/16/16 08:04 1,000 INTER.UNIT Clopidogrel Bisulfate (plAVix TAB) 75 mg QPM PO 11/05/16 21:00 12/05/16 20:59 11/15/16 20:42 75 MG Lorazepam (Ativan Tab) 0.5 mg Q6H PRN PO 11/05/16 10:45 12/05/16 10:44 11/08/16 03:03 0.5 MG Nystatin (Mycostatin Powder) 1 appln BID EXT 11/05/16 21:00 12/05/16 20:59 11/16/16 08:07 1 APPLN Ondansetron HCl (Zofran Odt) 4 mg Q6H PRN PO 11/05/16 10:45 12/05/16 10:44 Pantoprazole Sodium (Protonix Tab) 40 mg QAM PO 11/06/16 09:00 12/06/16 08:59 11/16/16 08:04 40 MG Vancomycin HCl (Vancomycin Oral Soln) 125 mg QAM PO 11/06/16 09:00 11/20/16 08:59 11/16/16 08:04 125 MG Febuxostat (Uloric) 40 mg DAILY@1200 PO 11/05/16 14:00 12/05/16 13:59 11/15/16 12:08 40 MG Lactobacillus Acidophilus (Floranex Tab) 4 tab QPM PO 11/05/16 21:00 12/05/16 20:59 11/15/16 20:42 4 TAB Raspberry (Raspberry Syrup 5ml Cup) 5 ml DAILY PO 11/06/16 09:00 11/20/16 08:59 11/16/16 08:04 5 ML Heparin Sodium (Porcine) (Heparin 10 Unit/ ml 5 ml Flush) 5 ml PRN PRN FLUSH 11/06/16 04:00 12/06/16 03:59 11/15/16 06:11 5 ML Heparin Sodium (Porcine) (Heparin Sq 5000 Unit/0.5ml) 5,000 unit Q12H SQ 11/07/16 02:00 12/07/16 01:59 11/15/16 01:02 5,000 UNIT Carvedilol (Coreg Tab) 12.5 mg BID PO 11/08/16 11:00 12/08/16 10:59 11/16/16 08:03 12.5 MG Loteprednol Etabonate (Lotemax 0.5%) 1 drops QAM OPB 11/10/16 08:00 12/05/16 13:59 11/16/16 08:05 1 DROPS Ertapenem 500 mg/ Sodium Chloride 55 ml @ 120 mls/hr Q24H IV 11/09/16 16:00 11/19/16 15:59 11/15/16 16:17 120 MLS/HR Miscellaneous Information (Pharmacy Consult) 1 ea UD PRN N/A 11/09/16 15:45 12/09/16 15:44 Sodium Bicarbonate (Sodium Bicarbonate Tab) 650 mg QAM PO 11/16/16 08:00 12/16/16 07:59 11/16/16 08:04 650 MG Dextrose 1,000 ml @ 75 mls/hr [id number] IV 11/16/16 08:45 72/17 08:44 UNV Impression (1) Acute kidney injury (2) Acute on chronic renal failure (3) CKD (chronic kidney disease) stage 5, GFR less than 15 ml/min (4) Hyperkalemia (5) Recurrent UTI (6) Generalized weakness (7) Bilateral hydronephrosis (8) Coronary artery disease (9) Systolic CHF Mrs. Chase was admitted with generalized weakness in the setting of advanced renal failure and hyperkalemia. Urine culture growing klebsiella. She is being treated w/ Ertapenem. Patient has renal failure. 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 difficile colitis, ICM w/ LVEF 25%, moderate MR, pulmonary HTN and moderate TR, AICD placement, hypercholesterolemia, chronic respiratory failure requiring ATC 02, obesity ( BMI 32), general debilitated condition Recommendations -- Change IV fluid to D5W @ 75 ml/h and encouraged pt to increase free water intake -- eGFR remains < 10 cc/min although cr slightly improved to 5.4 from 6.1 after stent removed yesterday -- Mr Chase feels that she is improving significantly with stent removal although it seems too soon to make that conclusion. If renal function worsen again then the options are (1) new ureteral stents, (2) percutaneous nephrostomy tubes, or (3) hospice. He does not feel that she would physically tolerate the procedure for percutaneous nephrostomy placement. -- Epogen [id number] units given 11/06/16 and 11/11/16 -- Hb improved to 9.3 after 1 unit PRBC yesterday (anemia in the setting of ICM)
[2016-11-16] MEDS: FEBUXOSTAT 40 MG TAB PO SCH (12:05)
[2016-11-16 12:07] VITALS: BP 138/75; PULSE 76; TEMP 36.6; O2SAT 100
--- NOTE | 2016-11-16 12:26 | Progress Note ---
Subjective Date of Service: Nov 16, 2016. Subjective pt is much more bright awake and alert today, did have stents out 11/15, CR slight downward from 11/15 at bedside and updated Problem List Medical Problems: (1) Acute kidney failure Status: Acute (2) Acute on chronic kidney failure Status: Acute (3) Acute renal failure Status: Acute (4) Altered mental status Status: Acute (5) Altered mental status Status: Acute (6) ARF (acute renal failure) Status: Acute (7) CRD (chronic renal disease) Status: Acute (8) Dehydration Status: Acute (9) Dehydration Status: Acute (10) Fever Status: Acute (11) Hyperkalemia Status: Acute (12) Hyperkalemia Status: Acute (13) Hyperkalemia Status: Acute (14) Hypomagnesemia Status: Acute (15) PICC (peripherally inserted central catheter) in place Status: Acute (16) Pneumonia Status: Acute (17) Renal failure Status: Acute (18) Renal insufficiency Status: Acute (19) Renal insufficiency Status: Acute (20) Sepsis Status: Acute (21) Sepsis Status: Acute (22) Uremia Status: Acute (23) UTI (urinary tract infection) Status: Acute (24) UTI (urinary tract infection) Status: Acute (25) UTI (urinary tract infection) Status: Acute (26) Weakness Status: Acute (27) Weakness Status: Acute (28) Weakness Status: Acute (29) Weakness Status: Acute (30) Weakness Status: Acute Review of Systems Constitutional: + weakness, + fatigue, No fever, No chills Respiratory: No cough, No shortness of breath Cardiac: No chest pain, No orthopnea, No PND, No edema Abdomen: No pain, No nausea, No vomiting, No diarrhea Musculoskeletal: No joint pain, No muscle pain, No swelling Neurologic: + memory loss, + weakness Objective Vital Signs Date Time Temp Pulse Resp B/P (MAP) Pulse Ox O2 Delivery O2 Flow Rate FiO2 11/16/16 12:07 36.6 76 16 138/75 (96) 100 2.0 11/16/16 11:02 Nasal Cannula 2.0 11/16/16 07:24 36.5 78 18 130/60 (83) 98 2.0 11/16/16 01:40 Nasal Cannula 2.0 11/16/16 00:01 36.9 75 20 126/62 (83) 99 2.0 11/15/16 18:52 36.5 78 18 123/69 (87) 98 Nasal Cannula 2.0 11/15/16 17:45 36.5 83 18 138/73 (94) 98 Nasal Cannula 2.0 11/15/16 17:12 Nasal Cannula 2.0 11/15/16 16:35 36.3 18 129/80 (96) 100 Nasal Cannula 2.0 11/15/16 16:05 36.4 70 18 148/83 (104) 100 Nasal Cannula 2.0 11/15/16 16:05 36.4 70 18 148/83 (104) 100 Nasal Cannula 2.0 11/15/16 15:45 36.1 66 16 114/57 100 Nasal Cannula 2 11/15/16 15:35 66 16 118/58 100 Mask 10 11/15/16 15:25 71 16 123/79 100 Mask 10 11/15/16 15:15 37.2 75 16 142/76 100 Mask 10 11/15/16 14:15 36.6 74 20 133/63 100 2.0 11/15/16 14:05 36.6 73 20 138/61 100 2.0 11/15/16 13:25 36.5 69 18 119/68 100 2.0 11/15/16 12:55 36.4 73 18 118/66 99 2.0 11/15/16 12:40 36.3 75 18 112/68 99 2.0 Physical Exam General Appearance: WD/WN, no apparent distress Eyes: PERRL, EOMI Neck: supple, no JVD Respiratory/Chest: chest non-tender, lungs clear, normal breath sounds Cardiovascular: regular rate, rhythm, no murmur Abdomen: normal bowel sounds, non tender, soft Extremities: no calf tenderness, + pedal edema Neurologic/Psychiatric: alert, oriented x 3 Laboratory Results Last 24 Hours Test 11/16/16 05:42 White Blood Count 8.25 K/uL Red Blood Count 3.02 M/uL Hemoglobin 9.3 g/dL Hematocrit 29.9 % Mean Corpuscular Volume 99.0 fL Mean Corpuscular Hemoglobin 30.8 pg Mean Corpuscular Hemoglobin Concent 31.1 g/dl RDW Standard Deviation 59.6 fL RDW Coefficient of Variation 16.8 % Platelet Count 114 K/uL Mean Platelet Volume 9.8 fL Sodium Level 148 mmol/L Potassium Level 4.5 mmol/L Chloride Level 115 mmol/L Carbon Dioxide Level 22 mmol/L Anion Gap 11.0 mmol/L Blood Urea Nitrogen 70 mg/dl Creatinine 5.40 mg/dl Est Creatinine Clear Calc Drug Dose 6.8 ml/min Estimated GFR () 7.9 Estimated GFR (Non- 6.8 BUN/Creatinine Ratio 12.9 Random Glucose 90 mg/dl Calcium Level 7.8 mg/dl Assessment and Plan 81yo F admitted with progressive renal failure, previously decided not to have dialysis, not to have percutaneous nephrostomy tubes. is relieved to have stents plan on removal 11/15 acute renal failure (ARF) in setting of progressive stage 5 CKD - ARF Cr slight improvement, stents removed 11/15,Removal of stents not guaranteeing no further infections, asked to consider plan of care or hospice if she declines once stents removed, but wants to see trend of Cr before making decision Nephrology has discussed future plans not to include dialysis or percutaneous nephrostomy tubes per wishes, klebsiella UTI - remains on ertapenem will plan on 24 hours past stent removal chronic hypoxic resp failure -nasal cannulae oxygen DVT proph - heparin BID but patient continues to refuse at times CAD - no ischemic symptoms at this time. Previously Dr Ward has discussed turning off the AICD if she pursues hospice. Continued [facility] stay due to: multiple IV medications needed Discharge planning: home with Hospice
[2016-11-16 15:27] VITALS: BP 136/65; PULSE 84; TEMP 36.8; O2SAT 98
[2016-11-16] MEDS: ERTAPENEM IV 500 MG in SODIUM CHLORIDE 0.9% 50ML 50 ML IV SCH (15:46)
[2016-11-16 19:21] VITALS: BP 131/76; PULSE 80; TEMP 37; O2SAT 100
[2016-11-16] MEDS: LACTOBACILLUS ACIDOPHILUS (FLORANEX) TAB PO SCH (22:26)
[2016-11-16] MEDS: ATORVASTATIN 40 MG TAB PO SCH (22:26)
[2016-11-16] MEDS: ASPIRIN 81 MG ECTAB PO SCH (22:26)
[2016-11-16] MEDS: CLOPIDOGREL BISULFATE 75 MG TAB PO SCH (22:26)
[2016-11-17 00:14] VITALS: BP 125/62; PULSE 79; TEMP 37.3; O2SAT 99
[2016-11-17] MEDS: HEPARIN SOD 5000 UNIT/0.5 ML CARP SQ SCH ×2 (02:00→13:23)
[2016-11-17 03:41] VITALS: BP 136/61; PULSE 78; TEMP 36.4; O2SAT 99
[2016-11-17 05:59] LABS: MEAN CORPUSCULAR HEMOGLOBIN 29.8 pg (25-34); MEAN CORPUSCULAR HGB CONC 30.7 g/dl (32-36); MEAN PLATELET VOLUME 9.7 fL (7.4-10.4); PLATELET COUNT 112 K/uL (130-400); RED BLOOD COUNT 2.99 M/uL (4.2-5.4); WHITE BLOOD COUNT 7.61 K/uL (4.8-10.8)
[2016-11-17 06:52] LABS: BUN/CREATININE RATIO 12.1 (10-20); CALCIUM 7.3 mg/dl (8.5-10.1); POTASSIUM 4.1 mmol/L (3.5-5.1)
[2016-11-17 07:48] VITALS: BP 132/72; PULSE 78; TEMP 36.8; O2SAT 97
[2016-11-17] MEDS: PANTOprazole SOD 40 MG TAB PO SCH (08:39)
[2016-11-17] MEDS: SODIUM BICARBONATE 650 MG TAB PO SCH (08:39)
[2016-11-17] MEDS: CARVEDILOL 12.5 MG TAB PO SCH (08:39)
[2016-11-17] MEDS: CHOLECALCIFEROL 1000 INTER.UNIT TAB PO SCH (08:39)
[2016-11-17] MEDS: RASPBERRY SYRUP 5 ML UDP PO SCH (08:40)
[2016-11-17] MEDS: VANCOMYCIN HCL 125 MG/2.5ML SOLN PO SCH (08:40)
[2016-11-17] MEDS: Loteprednol Etabonate (Lotemax) OPB SCH (08:40)
[2016-11-17] MEDS: NYSTATIN POWDER 15GM BTL EXT SCH (08:40)
--- NOTE | 2016-11-17 10:10 | Progress Note ---
Progress Note Date of Service Nov 17, 2016. Progress Note Seems to be progressing very well since her stent removal - subjectively reports she is feeling much better - Cr improving POD #2 s/p b/l ureteral stent removal - at present, no indication to consider stent replacement or perc nephrostomy - cont current treatment
[2016-11-17] MEDS: FEBUXOSTAT 40 MG TAB PO SCH (11:32)
[2016-11-17] MEDS: DEXTROSE 5% 1000ML 1,000 ML IV SCH (11:33)
--- NOTE | 2016-11-17 12:01 | Nephrology Progress Note ---
Nephrology Progress Note Date of Service Nov 17, 2016. Chief Complaint F/U for BONNIE and advanced CKD Subjective Mrs. Chase was seen and examined this am with her caregiver at bedside. She was lethergic, drowsy but arousable, answered questions, denies any symptoms. She report decent UO. Cr slightly improved to 5.0 <--6.1 Review of Systems A complete review of systems was performed. Pertinent positives are noted above. All other systems are negative. Vital Signs Last 8 Hrs Date Time Temp Pulse Resp B/P (MAP) Pulse Ox O2 Delivery O2 Flow Rate FiO2 11/17/16 07:48 36.8 78 18 132/72 (92) 97 2.0 11/17/16 03:41 36.4 78 18 136/61 (86) 99 Nasal Cannula 3.0 Last Recorded Weight Weight (Kilograms): 62.200 Physical Exam GENERAL: Elderly female, drowsy and lethergic but easily arousable, not in any distress. NECK: Supple, no JVD. RESPIRATORY: Normal breathing efforts, no accessory muscle use, clear to auscultation bilaterally, no wheezes or rales. CARDIOVASCULAR: S1, S2 normal, rate rhythm regular. EXTREMITY: No lower extremity edema NEURO: speech fluent. Family History Diabetes mellitus Other cardiovascular diseases Stroke Social History Smoking Status: Never smoker Alcohol Use: none Drug Use: none Marital Status: Housing Status: lives with significant other 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 Laboratory Results Past 24 Hours 11/17/16 05:35 11/17/16 05:35 Test 11/17/16 05:35 Red Blood Count 2.99 M/uL (4.2-5.4) Mean Corpuscular Volume 97.0 fL (80-100) Mean Corpuscular Hemoglobin 29.8 pg (25-34) Mean Corpuscular Hemoglobin Concent 30.7 g/dl (32-36) RDW Standard Deviation 56.9 fL (36.4-46.3) RDW Coefficient of Variation 16.3 % (11.5-14.5) Mean Platelet Volume 9.7 fL (7.4-10.4) Anion Gap 11.0 mmol/L (3-11) Est Creatinine Clear Calc Drug Dose 7.4 ml/min Estimated GFR () 8.6 Estimated GFR (Non- 7.4 BUN/Creatinine Ratio 12.1 (10-20) Calcium Level 7.3 mg/dl (8.5-10.1) Allergies Coded Allergies: Sulfa Antibiotics (Verified Allergy, Intermediate, BODY SWELLING,NAUSEA AND VOMITNG, 11/15/16) Penicillins (Verified Allergy, Unknown, Tolerates Primaxin, does NOT tolerate ZOSYN, 11/15/16) PER PCP RECORDS Medications Current Inpatient Medications Medications (Trade) Dose Ordered Sig/Helder Route Start Time Stop Time Status Last Admin Dose Admin Acetaminophen (Tylenol Tab) 650 mg Q4H PRN PO 11/05/16 10:45 12/05/16 10:44 Ondansetron HCl (Zofran Inj) 4 mg Q6H PRN IV 11/05/16 10:45 12/05/16 10:44 11/16/16 04:58 4 MG Aspirin (Ecotrin Tab) 81 mg QPM PO 11/05/16 21:00 12/05/16 20:59 11/16/16 22:26 81 MG Atorvastatin Calcium (Lipitor Tab) 80 mg QPM PO 11/05/16 21:00 12/05/16 20:59 11/16/16 22:26 80 MG Cholecalciferol (Vitamin D Tab) 1,000 inter.unit DAILY PO 11/06/16 09:00 12/06/16 08:59 11/17/16 08:39 1,000 INTER.UNIT Clopidogrel Bisulfate (plAVix TAB) 75 mg QPM PO 11/05/16 21:00 12/05/16 20:59 11/16/16 22:26 75 MG Lorazepam (Ativan Tab) 0.5 mg Q6H PRN PO 11/05/16 10:45 12/05/16 10:44 11/08/16 03:03 0.5 MG Nystatin (Mycostatin Powder) 1 appln BID EXT 11/05/16 21:00 12/05/16 20:59 11/17/16 08:40 1 APPLN Ondansetron HCl (Zofran Odt) 4 mg Q6H PRN PO 11/05/16 10:45 12/05/16 10:44 Pantoprazole Sodium (Protonix Tab) 40 mg QAM PO 11/06/16 09:00 12/06/16 08:59 11/17/16 08:39 40 MG Vancomycin HCl (Vancomycin Oral Soln) 125 mg QAM PO 11/06/16 09:00 11/20/16 08:59 11/17/16 08:40 125 MG Febuxostat (Uloric) 40 mg DAILY@1200 PO 11/05/16 14:00 12/05/16 13:59 11/16/16 12:05 40 MG Lactobacillus Acidophilus (Floranex Tab) 4 tab QPM PO 11/05/16 21:00 12/05/16 20:59 11/16/16 22:26 4 TAB Raspberry (Raspberry Syrup 5ml Cup) 5 ml DAILY PO 11/06/16 09:00 11/20/16 08:59 11/17/16 08:40 5 ML Heparin Sodium (Porcine) (Heparin 10 Unit/ ml 5 ml Flush) 5 ml PRN PRN FLUSH 11/06/16 04:00 12/06/16 03:59 11/15/16 06:11 5 ML Heparin Sodium (Porcine) (Heparin Sq 5000 Unit/0.5ml) 5,000 unit Q12H SQ 11/07/16 02:00 12/07/16 01:59 11/16/16 13:44 5,000 UNIT Carvedilol (Coreg Tab) 12.5 mg BID PO 11/08/16 11:00 12/08/16 10:59 11/17/16 08:39 12.5 MG Loteprednol Etabonate (Lotemax 0.5%) 1 drops QAM OPB 11/10/16 08:00 12/05/16 13:59 11/16/16 08:05 1 DROPS Ertapenem 500 mg/ Sodium Chloride 55 ml @ 120 mls/hr Q24H IV 11/09/16 16:00 11/19/16 15:59 11/16/16 15:46 120 MLS/HR Miscellaneous Information (Pharmacy Consult) 1 ea UD PRN N/A 11/09/16 15:45 12/09/16 15:44 Sodium Bicarbonate (Sodium Bicarbonate Tab) 650 mg QAM PO 11/16/16 08:00 12/16/16 07:59 11/17/16 08:39 650 MG Dextrose 1,000 ml @ 75 mls/hr [id number] IV 11/16/16 08:45 12/16/16 08:44 11/16/16 22:14 75 MLS/HR Impression (1) Acute kidney injury (2) Acute on chronic renal failure (3) CKD (chronic kidney disease) stage 5, GFR less than 15 ml/min (4) Hyperkalemia (5) Recurrent UTI (6) Generalized weakness (7) Bilateral hydronephrosis (8) Coronary artery disease (9) Systolic CHF Mrs. Chase was admitted with generalized weakness in the setting of advanced renal failure and hyperkalemia. Urine culture growing klebsiella. She is being treated w/ Ertapenem. Patient has renal failure. 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 difficile colitis, ICM w/ LVEF 25%, moderate MR, pulmonary HTN and moderate TR, AICD placement, hypercholesterolemia, chronic respiratory failure requiring ATC 02, obesity ( BMI 32), general debilitated condition Recommendations -- Continue D5W @ 75 ml/h and encouraged pt to increase free water intake -- eGFR remains < 10 cc/min although cr slightly improved to 5.0 from 6.1 after stent removed on 11/15/16 --she seems more lethergic today, unclear but most likely related her multiple comorbidities and recurrent hospital admission adn infection as well as GFR <10 -- Mr Chase feels that she is improving significantly with stent removal although it seems too soon to make that conclusion. If renal function worsen again then the options are (1) new ureteral stents, (2) percutaneous nephrostomy tubes, or (3) hospice. He does not feel that she would physically tolerate the procedure for percutaneous nephrostomy placement. -- Epogen [id number] units given 11/06/16 and 11/11/16 -- Hb stable (anemia in the setting of ICM)
--- NOTE | 2016-11-17 13:37 | Discharge Instructions ---
Discharge Instructions Date of Service Nov 17, 2016. Admission Reason for Admission: Weakness Discharge Discharge Diagnosis / Problem: encephalopathy, ureteral stent removal Discharge Goals Goal(s): Diagnostic testing, Therapeutic intervention Activity Recommendations Activity Limitations: resume your previous activity . Current Hospital Diet Patient's current hospital diet: Renal Diet Discharge Diet Recommended Diet: Regular Diet Procedures Procedures Performed: cystoscopy; b/l stent removal Pending Studies Studies pending at discharge: no Medical Emergencies . Who to Call and When: Medical Emergencies: If at any time you feel your situation is an emergency, please call 911 immediately. . Non-Emergent Contact Non-Emergency issues call your: Primary Care Provider Call Non-Emergent contact if: temperature is above 101, your pain is unusual for you . . "Provider Documentation" section prepared by Oniel Naik. . VTE Core Measure Inpt VTE Proph given/why not?: Unfractionated heparin SQ
--- NOTE | 2016-11-17 13:48 | Discharge Summary ---
Discharge Summary Date of Service Nov 17, 2016. Discharge Summary Admission Date: November 05, 2016 at 10:44 Discharge Date: Nov 17, 2016 Discharge Disposition: Home with services Principal Diagnosis: encephalopathy, acute on chronic renal failure, ureteral stent removal Immunizations: Have You Had Influenza Vaccine: Yes Influenza Vaccine Date: Mar 17, 2010 History of Tetanus Vaccine?: No History of Pneumococcal: No Pneumococcal Date: Jun 06, 2011 History of Hepatitis B Vaccine: No Procedures: ureteral stent removal Medication Reconciliation Continued Medications: Aspirin (Aspirin) 81 Mg Tab 81 MG PO QPM Atorvastatin (Lipitor) 80 Mg Tab 80 MG PO QPM Carvedilol (Coreg) 12.5 Mg Tab 12.5 MG PO BID, TAB Cholecalciferol (Vitamin D3) 1,000 Unit Tab 1 TAB PO DAILY for 90 Days, #90 TAB 3 Refills Clopidogrel Bisulfate (Clopidogrel) 75 Mg Tab 75 MG PO QPM WAS NOT INSTRUCTED TO HOLD Febuxostat (Uloric) 40 Mg Tab 40 MG PO NOON TAKE THIS MEDICATION DAILY WITH LUNCH Lorazepam (Ativan) 0.5 Mg Tab 0.5 MG PO Q6H PRN for Anxiety, TAB Loteprednol Etabonate (Lotemax) 0.5 % Gel 1 DROP OPB QAM Multiple Vitamins W/ Minerals (Centrum Silver Ultra Wome) 1 Tab Tab 1 TAB PO QAM Nystatin (Nystop) 45 Appln/15 Gm Powd 1 DOSE TOP BID Ondasetron Odt (Zofran Odt) 4 Mg Tab 4 MG PO Q6H PRN for Nausea Pantoprazole (Pantoprazole Sodium) 40 Mg Tab 40 MG PO QAM Probiotic Product (Probiotic) 1 Cap Cap 1 TAB PO QPM Sodium Bicarbonate (Sodium Bicarbonate) 650 Mg Tab 1 TAB PO QAM Vancomycin Hcl (Vancomycin) 125 Mg Cap 125 MG PO QAM [cranberry tablets] () 1 TAB PO QID, #120 6 Refills ac hs Discharge Exam Review of Systems: Constitutional: No fever, No chills Abdomen: No pain, No nausea Physical Exam: General Appearance: WD/WN, + mild distress Neck: supple, trachea midline Respiratory/Chest: chest non-tender, lungs clear, normal breath sounds Cardiovascular: regular rate, rhythm, no murmur Abdomen / GI: normal bowel sounds, non tender, soft Hospital Course 81yo F admitted with progressive renal failure, previously decided not to have dialysis, not to have percutaneous nephrostomy tubes. 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 - creatinine improving after removal of stents, but pt still with significant renal disease, continues on bicarb po and will follow up as out pt Anemia of chronic disease Hgb remained stable Chronic suppressive therapy for C.diff- Continue Vancomycin 125 mg daily and Probiotic Chronic systolic CHF without exacerbation/hx of MT carvedilol, ACEi and ARB are both contraindicated due to acute on chronic kidney injury -aspirin Plavix atorvastatin continue Chronic respiratory failure-uses nocturnal O2 Total Time Spent: Greater than 30 minutes This includes examination of the patient, discharge planning, medication reconciliation, and communication with other providers. Discharge Instructions Please refer to the electronic Patient Visit Report (Discharge Instructions) for additional information.
[2016-11-17 14:17] VITALS: BP 132/72; PULSE 78; TEMP 36.8; O2SAT 97
[2016-11-17] MEDS: ERTAPENEM IV 500 MG in SODIUM CHLORIDE 0.9% 50ML 50 ML IV SCH (16:00)
--- NOTE | 2016-11-19 10:41 | EDITING REQUIRED CODING QUERY ---
CODING QUERY To promote full compliance with coding requirements relating to patient care, provider participation is requested in all cases of filling and stapling machine operator uncertainty. Please assist us with the question(s) below: Coding Question(s): The Discharge Summary documents Encephalopathy. There is documentation in the Progress Notes of confusion. Please clarify below, in your clinical opinion. ( ) Confusion only ( xx) Encephalopathy - Please specify type if known metabolic associated with renal failure ( xx ) Present on admission ( ) Not present on admission ( ) Unknown if present on admission Physician's Response(s): Thank you Wendy Tamez Principal Diagnosis: "_that condition established after study, to be chiefly responsible for occasioning the admission of the patient to the hospital for care." Co-Existing Principal Diagnosis: "_when two or more diagnoses equally meet the criteria for principal diagnosis as determined by the circumstances of admission, diagnostic work up, and/or therapy provided, and the Alphabetic Index, Tabular List, or another coding guideline does not provide sequencing direction, any one of the diagnoses may be sequenced first." "When the physician has documented what appears to be a current diagnosis in the body of the record, but has not included the diagnosis in the final diagnostic statement, the physician should be asked whether the diagnosis should be added." (Source Coding [facility] 2 QTR90. p3-4)
[2016-12-04] MEDS ORDERED: METR-162 PO (09:01)
[2016-12-04] MEDS ORDERED: CPR500 PO (09:01)
== END 2016-11-17 17:15 | disposition home health service (06) | DRG 682 ==
LOC: ENRESERVDT → ENRESERVTM → EDBD 07:57 → C.EDB 07:59 → C.2E 10:44 → C.4E 11-08 17:26
PROVIDERS: ADMIT Family Medicine; ATTEND Internal Medicine
PROC: 0TP98DZ Removal of Intraluminal Device from Ureter, Via Natural or Artificial Opening Endoscopic (ICD-10-PCS; principal; 2016-11-15 14:45)
DX: N17.9 Acute kidney failure, unspecified (principal); G93.41 Metabolic encephalopathy; N39.0 Urinary tract infection, site not specified; I13.2 Hypertensive heart and chronic kidney disease with heart failure and with stage 5 chronic kidney disease, or end stage renal disease; I50.22 Chronic systolic (congestive) heart failure; J96.11 Chronic respiratory failure with hypoxia; E87.2 Acidosis; N13.1 Hydronephrosis with ureteral stricture, not elsewhere classified; B96.89 Other specified bacterial agents as the cause of diseases classified elsewhere; N18.5 Chronic kidney disease, stage 5; E87.5 Hyperkalemia; I95.9 Hypotension, unspecified; I25.5 Ischemic cardiomyopathy; R32 Unspecified urinary incontinence; R15.9 Full incontinence of feces; D63.8 Anemia in other chronic diseases classified elsewhere; N30.10 Interstitial cystitis (chronic) without hematuria; I25.10 Atherosclerotic heart disease of native coronary artery without angina pectoris; I25.2 Old myocardial infarction; E78.00 Pure hypercholesterolemia, unspecified; E66.9 Obesity, unspecified; Z79.899 Other long term (current) drug therapy; Z79.82 Long term (current) use of aspirin; Z79.2 Long term (current) use of antibiotics; Z99.81 Dependence on supplemental oxygen; Z16.24 Resistance to multiple antibiotics; Z87.440 Personal history of urinary (tract) infections; Z86.19 Personal history of other infectious and parasitic diseases; Z95.810 Presence of automatic (implantable) cardiac defibrillator; Z68.32 Body mass index [BMI] 32.0-32.9, adult; Z94.7 Corneal transplant status; Z83.3 Family history of diabetes mellitus; Z82.49 Family history of ischemic heart disease and other diseases of the circulatory system; Z82.3 Family history of stroke

== ENCOUNTER → 2016-11-20 | Outpatient (CLI) | payer MEDICARE ==
[~2016-11-20] MED LIST changes: +CARV12.52 PO; +COCO1OIL2 PO; +CPR500 PO; +CRAN1TAB PO; -CRG25 PO; -FURO-85 PO; +METR-162 PO
[2016-11-20 14:43] LABS: BLOOD UREA NITROGEN 56 mg/dl (7-18); BUN/CREATININE RATIO 11.1 (10-20); CALCIUM 7.8 mg/dl (8.5-10.1); CARBON DIOXIDE 21 mmol/L (21-32); CHLORIDE 117 mmol/L (98-107); GLUCOSE 86 mg/dl (70-99); SODIUM 148 mmol/L (136-145)
== END | disposition home or self-care (01) ==
LOC: C.LABSPEC 13:52
PROVIDERS: ATTEND Internal Medicine Nephrology
DX: I13.2 Hypertensive heart and chronic kidney disease with heart failure and with stage 5 chronic kidney disease, or end stage renal disease (principal)

== ENCOUNTER → 2016-11-27 | Outpatient (CLI) | payer MEDICARE ==
[~2016-11-27] MED LIST changes: +CRG25 PO; +FURO-85 PO
[2016-11-27 10:32] LABS: BLOOD UREA NITROGEN 64 mg/dl (7-18); BUN/CREATININE RATIO 13.8 (10-20); CALCIUM 8.4 mg/dl (8.5-10.1); CARBON DIOXIDE 20 mmol/L (21-32); CHLORIDE 118 mmol/L (98-107); GLUCOSE 117 mg/dl (70-99); POTASSIUM 5.4 mmol/L (3.5-5.1); SODIUM 149 mmol/L (136-145)
== END | disposition home or self-care (01) ==
LOC: C.LABSPEC 08:34
PROVIDERS: ATTEND Internal Medicine Nephrology
DX: N18.4 Chronic kidney disease, stage 4 (severe) (principal)

== ENCOUNTER 2016-12-02 16:42 | Observation (INO) | payer MEDICARE ==
[~2016-12-02] VITALS: Ht 162.6 cm; Wt 63.6 kg
[~2016-12-02 16:42] MED LIST changes: -COCO1OIL2 PO; -CPR500 PO; -CRAN1TAB PO; -CRG25 PO; -FURO-85 PO; -METR-162 PO
[2016-12-02 17:11] LABS: URINE APPEARANCE CLOUDY (CLEAR); URINE BILIRUBIN NEG (NEG); URINE COLOR YELLOW; URINE EPITHELIAL CELL AUTO 20-30 /lpf (0-5); URINE NITRITE NEG (NEG); URINE PH 6.5 (4.5-7.5); URINE SPECIFIC GRAVITY 1.014 (1.000-1.030); UROBILINOGEN NEG (NEG)
--- NOTE | 2016-12-02 17:15 | EMERGENCY ROOM VISIT NOTE ---
History Report prepared by Harrison: Sj Carrero Under the Supervision of: Dr. Eric Avila D.O. First contact with patient: 16:43 Chief Complaint: ILLNESS Stated Complaint: ILLNESS History of Present Illness The patient is an 81 year old female who presents to the Emergency Room with persistent generalized discomfort throughout the day. The patient states that "everything is bothering her" and that she "feels crappy all over." She denies any pain whatsoever, including headache, back pain, leg pain. She also denies shortness of breath or changes in her urinary habits. She has been eating and drinking okay. Per , the patient has not had any recent fevers, tachycardic episodes, or sudden changes in blood pressure. He checks her vital signs daily. He has not noticed increased leg swelling. The notes that this is the patient's 7th visit to the ED this year. The patient suffers from recurrent UTIs. The patient had her bilateral ureteral stents removed by Dr. Reeves (Urology) the last time she was in the hospital. She has a history of renal failure but still makes urine, per . The patient does not have a catheter in place chronically. The patient has history of CHF and myocardial infarction in 2009. The patient has been taking one less dose of her Carvedilol due to her blood pressure being on the low side. Source of History: patient, spouse/significant other Onset: today Position: other (generalized) Quality: other (discomfort) Timing: other (persistent) Associated Symptoms: No fevers, No headache, No back pain, No urinary symptoms Review of Systems See HPI for pertinent positives & negatives. A total of 10 systems reviewed and were otherwise negative. Past Medical & Surgical Medical Problems: (1) Acute hypernatremia (2) Acute kidney injury (3) Acute on chronic renal failure (4) Acute renal failure superimposed on stage 4 chronic kidney disease (5) Acute urinary tract infection (6) Anemia (7) Benign hypertension (8) Cardiac catheterization (9) CHF (congestive heart failure) (10) CHF (congestive heart failure) (11) Cholecystectomy (12) Chronic kidney disease (13) CKD (chronic kidney disease) stage 5, GFR less than 15 ml/min (14) Coronary artery disease (15) Dehydration (16) Diabetes (17) Hyperkalemia (18) Hypotension (19) Ischemic cardiomyopathy (20) Metabolic acidosis (21) Metabolic acidosis with increased anion gap and reduced excretion of inorganic acids (22) Myocardial infarction (23) Pneumonia (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 (25) Recurrent UTI (26) Secondary hyperparathyroidism of renal origin (27) Sepsis (28) Sepsis due to Klebsiella (29) sepsis recurrent UTI BONNIE on ckd (30) Systolic CHF (31) UTI (urinary tract infection) (32) UTI (urinary tract infection) (33) UTI (urinary tract infection) (34) UTI, altered mental status (35) Weakness Surgical Problems: (1) History of cholecystectomy (2) History of ureter stent Family History Diabetes mellitus Other cardiovascular diseases Stroke Social History Smoking Status: Never Smoker Alcohol Use: none Drug Use: none Marital Status: Housing Status: lives with significant other Occupation Status: retired Current/Historical Medications Scheduled Aspirin (Aspirin), 81 MG PO QPM Atorvastatin (Lipitor), 80 MG PO QPM Carvedilol (Coreg), 12.5 MG PO QAM Cholecalciferol (Vitamin D3), 1 TAB PO DAILY Clopidogrel Bisulfate (Clopidogrel), 75 MG PO QPM Febuxostat (Uloric), 40 MG PO NOON Loteprednol Etabonate (Lotemax), 1 DROP OPB QAM Multiple Vitamins W/ Minerals (Centrum Silver Ultra [place]), 1 TAB PO QAM Nystatin (Nystop), 1 DOSE TOP BID Pantoprazole (Pantoprazole Sodium), 40 MG PO QAM Probiotic Product (Probiotic), 1 TAB PO QPM Sodium Bicarbonate (Sodium Bicarbonate), 1 TAB PO QAM Vancomycin Hcl (Vancomycin), 125 MG PO QAM [cranberry tablets], 1 TAB PO QID Scheduled PRN Lorazepam (Ativan), 0.5 MG PO Q6H PRN for Anxiety Ondasetron Odt (Zofran Odt), 4 MG PO Q6H PRN for Nausea Allergies Coded Allergies: Sulfa Antibiotics (Verified Allergy, Intermediate, BODY SWELLING,NAUSEA AND VOMITNG, 11/15/16) Penicillins (Verified Allergy, Unknown, Tolerates Primaxin, does NOT tolerate ZOSYN, 11/15/16) PER PCP RECORDS Physical Exam Vital Signs Date Time Temp Pulse Resp B/P (MAP) Pulse Ox O2 Delivery O2 Flow Rate FiO2 12/02/16 18:47 80 14 144/74 98 Room Air 12/02/16 17:04 36.7 83 20 151/76 95 Room Air 12/02/16 16:55 84 Physical Exam GENERAL: Patient is awake, alert, very uncomfortable appearing. EYES: The conjunctivae are clear. The pupils are round and reactive. EARS, NOSE, MOUTH AND THROAT: The nose is without any evidence of any deformity. Mucous membranes are dry, tongue is midline NECK: The neck is nontender and supple. RESPIRATORY: Lung sounds diminished at the bases with rales at the bases bilaterally, upper lung lentz were clear, no tachypnea or conversational dyspnea noted. CARDIOVASCULAR: Regular rate and rhythm noted there no murmurs rubs or gallops normal S1 normal S2 GASTROINTESTINAL: The abdomen is mildly distended but soft, no specific guarding or rigidity. MUSCULOSKELETAL/EXTREMITIES: There is no evidence of gross deformity full range of motion is noted in the hips and shoulders SKIN: There is no obvious evidence of any rash. There are no petechiae, pallor or cyanosis noted. Trace pedal edema bilaterally. NEUROLOGIC: Patient is awake alert and oriented x3. Medical Decision & Procedures ER Provider Diagnostic Interpretation: X-ray results as stated below per interpretation by me and the radiologist. Radiology results as stated below per my review and radiologist interpretation: CHEST ONE VIEW PORTABLE HISTORY: Generalized abdominal pain. COMPARISON: Chest 11/05/2016. FINDINGS: The heart remains borderline enlarged. No focal lung consolidations to suggest pneumonia. No evidence for pulmonary edema. A right PICC terminates in the SVC. There is a left-sided single lead pacemaker/defibrillator. Suspect trace bilateral pleural effusions. No pneumothorax. IMPRESSION: Trace bilateral pleural effusions. Electronically signed by: Dusty Newsome M.D. 12/02/2016 5:54 PM Dictated Date/Time: 12/02/2016 5:53 PM ABDOMEN AND PELVIS CT WITHOUT CONTRAST CT DOSE: 315.72 mGy.cm HISTORY: Generalized abdominal pain. recent stent removal TECHNIQUE: Multiaxial CT images of the abdomen and pelvis were performed without contrast. COMPARISON STUDY: Abdomen and pelvis CT 11/05/2016. FINDINGS: Trace bilateral pleural effusions. A pacemaker wire is noted. Small hiatus hernia. Bibasilar subsegmental atelectasis. No pneumoperitoneum. No pneumatosis. Cholecystectomy. The unenhanced liver, pancreas, spleen, and adrenal glands are unremarkable. The uterus is surgically absent. No retroperitoneal lymphadenopathy. Bilateral renal stones measuring up to 3 mm. Moderate bilateral cortical atrophy. No hydronephrosis. Mild bladder wall thickening and mild fat stranding surrounding the bladder. Mild bilateral urothelial thickening within the renal pelvis and ureters. No ureteral stones. No hydronephrosis. Suboptimal evaluation for bowel pathology due to the lack of intravenous and oral contrast. Multiple colonic diverticula. Focal mild thickening at the proximal sigmoid colon with surrounding mild fat stranding. This is consistent with acute diverticulitis. No extraluminal gas or abscess identified at this time. IMPRESSION: 1. Proximal acute sigmoid diverticulitis. 2. Mild urothelial thickening within the renal pelvises and ureters. There is also mild bladder wall thickening with adjacent fat stranding. Findings likely represent a pyelitis/cystitis. Recommend correlation with urinalysis. 3. Bilateral nephrolithiasis. No hydronephrosis. Electronically signed by: Dusty Newsome M.D. 12/02/2016 6:20 PM Dictated Date/Time: 12/02/2016 6:13 PM Laboratory Results 12/02/16 17:15 Red Blood Count 3.37, Mean Corpuscular Volume 98.2, Mean Corpuscular Hemoglobin 30.0, Mean Corpuscular Hemoglobin Concent 30.5, Mean Platelet Volume 9.3, Neutrophils (%) (Auto) 55.1, Lymphocytes (%) (Auto) 27.6, Monocytes (%) (Auto) 5.2, Eosinophils (%) (Auto) 6.3, Basophils (%) (Auto) 0.5, Neutrophils # (Auto) 5.57, Lymphocytes # (Auto) 2.78, Monocytes # (Auto) 0.52, Eosinophils # (Auto) 0.64, Basophils # (Auto) 0.05 12/02/16 17:15 Test 12/02/16 16:54 12/02/16 17:15 Urine Color YELLOW Urine Appearance CLOUDY (CLEAR) Urine pH 6.5 (4.5-7.5) Urine Specific [place] 1.014 (1.000-1.030) Urine Protein 1+ (NEG) Urine Glucose (UA) NEG (NEG) Urine Ketones NEG (NEG) Urine Occult Blood 2+ (NEG) Urine Nitrite NEG (NEG) Urine Bilirubin NEG (NEG) Urine Urobilinogen NEG (NEG) Urine Leukocyte Esterase LARGE (NEG) Urine WBC (Auto) >30 /hpf (0-5) Urine RBC (Auto) 10-30 /hpf (0-4) Urine Hyaline Casts (Auto) 1-5 /lpf (0-5) Urine Epithelial Cells (Auto) 20-30 /lpf (0-5) Urine Bacteria (Auto) NEG (NEG) White Blood Count 10.09 K/uL (4.8-10.8) Red Blood Count 3.37 M/uL (4.2-5.4) Hemoglobin 10.1 g/dL (12.0-16.0) Hematocrit 33.1 % (37-47) Mean Corpuscular Volume 98.2 fL (80-100) Mean Corpuscular Hemoglobin 30.0 pg (25-34) Mean Corpuscular Hemoglobin Concent 30.5 g/dl (32-36) Platelet Count 136 K/uL (130-400) Mean Platelet Volume 9.3 fL (7.4-10.4) Neutrophils (%) (Auto) 55.1 % Lymphocytes (%) (Auto) 27.6 % Monocytes (%) (Auto) 5.2 % Eosinophils (%) (Auto) 6.3 % Basophils (%) (Auto) 0.5 % Neutrophils # (Auto) 5.57 K/uL (1.4-6.5) Lymphocytes # (Auto) 2.78 K/uL (1.2-3.4) Monocytes # (Auto) 0.52 K/uL (0.11-0.59) Eosinophils # (Auto) 0.64 K/uL (0-0.5) Basophils # (Auto) 0.05 K/uL (0-0.2) RDW Standard Deviation 57.3 fL (36.4-46.3) RDW Coefficient of Variation 15.9 % (11.5-14.5) Immature Granulocyte % (Auto) 5.3 % Immature Granulocyte # (Auto) 0.53 K/uL (0.00-0.02) Toxic Granulation 1+ Poikilocytosis PRESENT Anisocytosis PRESENT Prothrombin Time 11.1 SECONDS (9.0-12.0) Prothromb Time International Ratio 1.0 (0.9-1.1) Activated Partial Thromboplast Time 24.5 SECONDS (21.0-31.0) Partial Thromboplastin Ratio 0.9 Anion Gap 8.0 mmol/L (3-11) Est Creatinine Clear Calc Drug Dose 9.7 ml/min Estimated GFR () 12.0 Estimated GFR (Non- 10.4 BUN/Creatinine Ratio 15.7 (10-20) Calcium Level 8.1 mg/dl (8.5-10.1) Magnesium Level 2.1 mg/dl (1.8-2.4) Total Bilirubin 0.2 mg/dl (0.2-1) Direct Bilirubin < 0.1 mg/dl (0-0.2) Aspartate Amino Transf (AST/SGOT) 15 U/L (15-37) Alanine Aminotransferase (ALT/SGPT) 17 U/L (12-78) Alkaline Phosphatase 87 U/L (45-117) Total Creatine Kinase 16 U/L (26-192) Creatine Kinase MB 0.9 ng/ml (0.5-3.6) Creatine Kinase MB Ratio 5.6 (0-3.0) Troponin I 0.017 ng/ml (0-0.045) Pro-B-Type Natriuretic Peptide 12514 pg/ml (0-1800) Total Protein 6.3 gm/dl (6.4-8.2) Albumin 2.8 gm/dl (3.4-5.0) Lipase 350 U/L (73-393) Laboratory results per my review. Medications Administered Medications (Trade) Dose Ordered Sig/Helder Route Start Time Stop Time Status Last Admin Dose Admin Ceftriaxone Sodium (Rocephin Inj) 1 gm NOW STAT IV 12/02/16 17:32 12/02/16 17:33 DC 12/02/16 18:07 1 GM Sodium Chloride 500 ml @ 999 mls/hr Q31M STAT IV 12/02/16 17:53 12/02/16 18:30 DC 12/02/16 18:07 999 MLS/HR Ciprofloxacin/ Dextrose (Cipro / D5W) 400 mg NOW STAT IV 12/02/16 18:35 12/02/16 18:36 DC 12/02/16 19:05 400 MG ECG Indication: other (generalized discomfort) Rate (beats per minute): 81 Rhythm: normal sinus Findings: T-wave inversion (Lateral), no ectopy, other (LVH noted by voltage criteria) Comparison ECG Date: 09 Nov 2016 Change: no significant change ED Course 165: The patient was evaluated in room B7. A complete history and physical examination were performed. 173: Rocephin 1 gm IV. 1834: Cipro / D5w 400 mg IV. 1835: Updated the patient and her family. 1904: Discussed the case with Dr. Ramsey, Resident for the [facility] Hospitalist [facility]. The patient will be evaluated. Medical Decision Prior records/ancillary studies reviewed and summarized above. Nursing notes reviewed. Additional history obtained from . Differential diagnosis: Etiologies such as metabolic, infection, UTI, hypo/hyperglycemia, electrolyte abnormalities, cardiac sources, intracerebral event, toxicologic, neurologic, as well as others were entertained. Medication Reconciliation: I attest that I have personally reviewed the patient' s current medications list. Patient was found to have a slightly elevated blood pressure due to circumstances. I do not believe that the patient requires hypertension monitoring. The patient is an 81-year-old female who presented to the emergency department for an evaluation of generalized illness. The patient has a history of bilateral ureteral stents or recently removed because of her complicated by infection. The patient has had an elevated creatinine which continues to improve. Her creatinine level this evening appears to be significantly improved from her most recent draw. She did have an elevated sodium and I think she could be mildly dehydrated so she was treated with a small amount of fluid. Urinalysis revealed a significant urinary tract infection so she was started on IV antibiotic. I did review the patient's to most recent urine cultures and she was given IV Rocephin in conjunction with the most 2 recent urine culture antibiotic sensitivities. I discussed the patient's laboratory and radiographic studies with her and her family. Her urinalysis was sent for culture. A CAT scan the abdomen and pelvis appear to show signs of diverticulitis although the patient is a history of ongoing C. difficile this could be related to back colitis. I discussed his case with the on-call carolina Barajas hospitalist. They' ve agreed to evaluate the patient in emergency department for further management and disposition. Consults Time Called: 1854 Consulting Physician: Dr. Ramsey, Resident for the [facility] Hospitalist Service Returned Call: [phone] The patient will be evaluated. Impression Primary Impression: UTI (urinary tract infection) Additional Impressions: Hyperkalemia Chronic renal insufficiency Diverticulitis Scribe Attestation The scribe's documentation has been prepared under my direction and personally reviewed by me in its entirety. I confirm that the note above accurately reflects all work, treatment, procedures, and medical decision making performed by me. Departure Information Dispostion Being Evaluated By Hospitalist Referrals No Doctor, Assigned (PCP) Patient Instructions My [facility] Problem Qualifiers Primary Impression: UTI (urinary tract infection) Urinary tract infection type: site unspecified Hematuria presence: without hematuria Qualified Codes: N39.0 - Urinary tract infection, site not specified Additional Impressions: Chronic renal insufficiency Chronic kidney disease stage: unspecified stage Qualified Codes: N18.9 - Chronic kidney disease, unspecified Diverticulitis Diverticulitis site: large intestine Diverticulitis bleeding: without bleeding Diverticulitis complication: unspecified complication status Qualified Codes: K57.32 - Diverticulitis of large intestine without perforation or abscess without bleeding
[2016-12-02 17:19] LABS: MANUAL MICROSCOPIC REQUIRED? NO; REVIEW REQ? NO
[2016-12-02 17:27] LABS: HEMATOCRIT 33.1 % (37-47); MEAN CELL VOLUME 98.2 fL (80-100); MEAN CORPUSCULAR HGB CONC 30.5 g/dl (32-36); MEAN PLATELET VOLUME 9.3 fL (7.4-10.4); PLATELET COUNT 136 K/uL (130-400); RED BLOOD COUNT 3.37 M/uL (4.2-5.4); WHITE BLOOD COUNT 10.09 K/uL (4.8-10.8)
[2016-12-02] MEDS ORDERED: CEFTRIAXONE SOD INJ 1 GM ADDVIAL IV STA (17:32)
[2016-12-02 17:36] LABS: PARTIAL THROMBOPLASTIN RATIO 0.9; PROTHROMBIN TIME (PATIENT) 11.1 SECONDS (9.0-12.0)
[2016-12-02 17:44] LABS: ALT/SGPT 17 U/L (12-78); AST/SGOT 15 U/L (15-37); BLOOD UREA NITROGEN 60 mg/dl (7-18); BUN/CREATININE RATIO 15.7 (10-20); CALCIUM 8.1 mg/dl (8.5-10.1); CARBON DIOXIDE 22 mmol/L (21-32); CHLORIDE 118 mmol/L (98-107); GLUCOSE 97 mg/dl (70-99); MAGNESIUM 2.1 mg/dl (1.8-2.4); POTASSIUM 5.5 mmol/L (3.5-5.1); SODIUM 148 mmol/L (136-145)
[2016-12-02 17:49] LABS: ALKALINE PHOSPHATASE 87 U/L (45-117); CKMB/CK RATIO 5.6 (0-3.0)
[2016-12-02 17:51] LABS: ANISOCYTOSIS PRESENT; BASO % 0.5 %; BASO ABS # 0.05 K/uL (0-0.2); COMPLETE YES; EOS % 6.3 %; IG% 5.3 %; LYMPH % 27.6 %; LYMPH ABS # 2.78 K/uL (1.2-3.4); MONO % 5.2 %; NEUT % 55.1 %; POIKILOCYTOSIS PRESENT; TOXIC GRANULATION 1+
[2016-12-02] MEDS ORDERED: SODIUM CHLORIDE 0.9% 500ML 500 ML IV STA (17:53)
--- NOTE | 2016-12-02 17:56 | DIAGNOSTIC IMAGING REPORT ---
CHEST ONE VIEW PORTABLE HISTORY: Generalized abdominal pain. COMPARISON: Chest 11/05/2016. FINDINGS: The heart remains borderline enlarged. No focal lung consolidations to suggest pneumonia. No evidence for pulmonary edema. A right PICC terminates in the SVC. There is a left-sided single lead pacemaker/defibrillator. Suspect trace bilateral pleural effusions. No pneumothorax. IMPRESSION: Trace bilateral pleural effusions. Electronically signed by: Dusty Newsome M.D. 12/02/2016 5:54 PM Dictated Date/Time: 12/02/2016 5:53 PM
--- NOTE | 2016-12-02 18:21 | DIAGNOSTIC IMAGING REPORT ---
ABDOMEN AND PELVIS CT WITHOUT CONTRAST CT DOSE: 315.72 mGy.cm HISTORY: Generalized abdominal pain. recent stent removal TECHNIQUE: Multiaxial CT images of the abdomen and pelvis were performed without contrast. COMPARISON STUDY: Abdomen and pelvis CT 11/05/2016. FINDINGS: Trace bilateral pleural effusions. A pacemaker wire is noted. Small hiatus hernia. Bibasilar subsegmental atelectasis. No pneumoperitoneum. No pneumatosis. Cholecystectomy. The unenhanced liver, pancreas, spleen, and adrenal glands are unremarkable. The uterus is surgically absent. No retroperitoneal lymphadenopathy. Bilateral renal stones measuring up to 3 mm. Moderate bilateral cortical atrophy. No hydronephrosis. Mild bladder wall thickening and mild fat stranding surrounding the bladder. Mild bilateral urothelial thickening within the renal pelvis and ureters. No ureteral stones. No hydronephrosis. Suboptimal evaluation for bowel pathology due to the lack of intravenous and oral contrast. Multiple colonic diverticula. Focal mild thickening at the proximal sigmoid colon with surrounding mild fat stranding. This is consistent with acute diverticulitis. No extraluminal gas or abscess identified at this time. IMPRESSION: 1. Proximal acute sigmoid diverticulitis. 2. Mild urothelial thickening within the renal pelvises and ureters. There is also mild bladder wall thickening with adjacent fat stranding. Findings likely represent a pyelitis/cystitis. Recommend correlation with urinalysis. 3. Bilateral nephrolithiasis. No hydronephrosis. Electronically signed by: Dusty Newsome M.D. 12/02/2016 6:20 PM Dictated Date/Time: 12/02/2016 6:13 PM
[2016-12-02] MEDS ORDERED: CIPROFLOXACIN 400MG / 200ML D5W IV STA (18:35)
[2016-12-02] MEDS ORDERED: MAGNESIUM HYDROXIDE SUSP 30 ML UDC PO PRN (20:00)
[2016-12-02] MEDS ORDERED: ONDANSETRON INJ 2 MG/ML 2 ML VIAL IV PRN (20:00)
[2016-12-02] MEDS ORDERED: LORAZEPAM 0.5 MG TAB PO PRN (20:00)
[2016-12-02] MEDS ORDERED: ONDANSETRON 4MG OD TAB PO PRN (20:00)
[2016-12-02] MEDS ORDERED: POLYETHYLENE (MIRALAX) 17 GM PACK PO PRN (20:00)
[2016-12-02] MEDS ORDERED: ACETAMINOPHEN 325 MG TAB PO PRN (20:00)
[2016-12-02] MEDS ORDERED: ALUMINUM/MAGNESIUM/SIMETH (MAALOX MAX) 30 ML UDC PO PRN (20:00)
[2016-12-02] MEDS ORDERED: IV FLUIDS COMPLETED PRN (20:00)
--- NOTE | 2016-12-02 20:21 | History and Physical ---
History & Physical Date & Time of Service: Dec 02, 2016 at 20:06 Chief Complaint: Illness Primary Care Physician: Jan Cervantes M.D. History of Present Illness The patient is a pleasant 81 year old female who presents accompanied by her and daughter, brought in by ambulance. 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 She presents today stating "I feel bad all over". When asked to elaborate further she was unable to be more specific. She denies having chest pain, coughing, shorntess of braeth, chest pain, nausea, vomiting, abdominal pain, diarrhea or constipation. She has not had had any dysuria, urinary frequency. Her notes that she was doing quite well after her most recent discharge from [facility] on 11/17/2016. This morning, he states that she seemed well and that in the morning she woke up and was able to ambulate to her wheelchair and have breakfast. She then went for a nap and when she woke up at 3 pm, told him that she did not feel well. felt it would be appropriate to call ambulance and bring her to the ER for further evaluation. In the ED, UA was abnormal. CT scan noted diverticulitis and resolved hydronephrosis. Remarkably renal function is at its baseline in the mid-high 3s (3.8 on arrival). She was treated with doses of Rocephin and Ciprofloxacin as well as 1 L NSS. Of note, she was admitted in October 2016 for acute on chronic renal dysfunction. At that time, she had ureteral stents in place, but given waxing and waning renal function, the stents were removed to see if any improvement in renal function would occur. As noted above her Cr is as good as its been since August 2016 (in the 3s). It is noted based on review of notes, that family has previously refused both dialysis and placement of permanent nephrostomy tubes. Past Medical/Surgical History Medical Problems: (1) Acute kidney injury Status: Resolved (2) Acute renal failure superimposed on stage 4 chronic kidney disease Status: Resolved (3) Acute urinary tract infection Status: Resolved (4) Benign hypertension Status: Chronic (5) Cardiac catheterization Status: Resolved (6) CHF (congestive heart failure) Status: Resolved (7) Cholecystectomy Status: Resolved (8) Chronic kidney disease Status: Chronic (9) Coronary artery disease Status: Chronic (10) Diabetes Status: Chronic (11) Ischemic cardiomyopathy Status: Resolved (12) Myocardial infarction Status: Chronic (13) Pneumonia Status: Resolved (14) 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 Status: Resolved (15) Sepsis Status: Resolved (16) Sepsis due to Klebsiella Status: Resolved (17) sepsis recurrent UTI BONNIE on ckd Status: Resolved (18) Systolic CHF Status: Resolved (19) UTI (urinary tract infection) Status: Resolved (20) UTI (urinary tract infection) Status: Resolved Surgical Problems: (1) History of cholecystectomy Status: Resolved Family History Diabetes mellitus Other cardiovascular diseases Stroke Social History Smoking Status: Never Smoker Drug Use: none Marital Status: Housing status: lives with significant other Occupational Status: retired Immunizations History of Influenza Vaccine: Yes Influenza Vaccine Date: Mar 17, 2010 History of Tetanus Vaccine?: No History of Pneumococcal: No Pneumococcal Date: Jun 06, 2011 History of Hepatitis B Vaccine: No Multi-Drug Resistant Organisms History of MDRO: Yes Type of MDRO: other Allergies Coded Allergies: Sulfa Antibiotics (Verified Allergy, Intermediate, BODY SWELLING,NAUSEA AND VOMITNG, 11/15/16) Penicillins (Verified Allergy, Unknown, Tolerates Primaxin, does NOT tolerate ZOSYN, 11/15/16) PER PCP RECORDS Home Medications Scheduled Aspirin (Aspirin), 81 MG PO QPM Atorvastatin (Lipitor), 80 MG PO QPM Carvedilol (Coreg), 12.5 MG PO QAM Cholecalciferol (Vitamin D3), 1 TAB PO DAILY Ciprofloxacin (Ciprofloxacin HCl), 500 MG PO Q12 Clopidogrel Bisulfate (Clopidogrel), 75 MG PO QPM Febuxostat (Uloric), 40 MG PO NOON Loteprednol Etabonate (Lotemax), 1 DROP OPB QAM Metronidazole (Flagyl), 1 TAB PO TID Multiple Vitamins W/ Minerals (Centrum Silver Ultra [place]), 1 TAB PO QAM Nystatin (Nystop), 1 DOSE TOP BID Pantoprazole (Pantoprazole Sodium), 40 MG PO QAM Probiotic Product (Probiotic), 1 TAB PO QPM Sodium Bicarbonate (Sodium Bicarbonate), 1 TAB PO QAM Vancomycin Hcl (Vancomycin), 125 MG PO QAM [cranberry tablets], 1 TAB PO QID Scheduled PRN Lorazepam (Ativan), 0.5 MG PO Q6H PRN for Anxiety Ondasetron Odt (Zofran Odt), 4 MG PO Q6H PRN for Nausea Review of Systems A 10 point review of systems was negative unless stated above. Physical Exam Vital Signs Date Time Temp Pulse Resp B/P (MAP) Pulse Ox O2 Delivery O2 Flow Rate FiO2 12/02/16 18:47 80 14 144/74 98 Room Air 12/02/16 17:04 36.7 83 20 151/76 95 Room Air 12/02/16 16:55 84 General Appearance: WD/WN, no apparent distress Head: normocephalic, atraumatic Eyes: EOMI, + pertinent finding (foggy cornea on right eye) ENT: hearing grossly normal, pharynx normal Neck: supple, no adenopathy, no JVD Respiratory/Chest: lungs clear, no respiratory distress, no accessory muscle use, + pertinent finding (diminished at the bases bilatearlly) Cardiovascular: regular rate, rhythm, no gallop, no murmur Abdomen/GI: normal bowel sounds, non tender, soft Back: no CVA tenderness, no muscle spasm Extremities/Musculoskelatal: no calf tenderness, no pedal edema Neurologic/Psych: alert, normal mood/affect, + pertinent finding (alert and oriented to person and place; good attention) Skin: normal color, warm/dry, no rash Lymphatic: no adenopathy Diagnostics Laboratory Results Results Past 24 Hours Test 12/02/16 16:54 12/02/16 17:15 Range/Units Urine Color YELLOW Urine Appearance CLOUDY CLEAR Urine pH 6.5 4.5-7.5 Urine Specific [place] 1.014 1.000-1.030 Urine Protein 1+ NEG Urine Glucose (UA) NEG NEG Urine Ketones NEG NEG Urine Occult Blood 2+ NEG Urine Nitrite NEG NEG Urine Bilirubin NEG NEG Urine Urobilinogen NEG NEG Urine Leukocyte Esterase LARGE NEG Urine WBC (Auto) >30 0-5 /hpf Urine RBC (Auto) 10-30 0-4 /hpf Urine Hyaline Casts (Auto) 1-5 0-5 /lpf Urine Epithelial Cells (Auto) 20-30 0-5 /lpf Urine Bacteria (Auto) NEG NEG White Blood Count 10.09 4.8-10.8 K/uL Red Blood Count 3.37 4.2-5.4 M/uL Hemoglobin 10.1 12.0-16.0 g/dL Hematocrit 33.1 37-47 % Mean Corpuscular Volume 98.2 80-100 fL Mean Corpuscular Hemoglobin 30.0 25-34 pg Mean Corpuscular Hemoglobin Concent 30.5 32-36 g/dl Platelet Count 136 130-400 K/uL Mean Platelet Volume 9.3 7.4-10.4 fL Neutrophils (%) (Auto) 55.1 % Lymphocytes (%) (Auto) 27.6 % Monocytes (%) (Auto) 5.2 % Eosinophils (%) (Auto) 6.3 % Basophils (%) (Auto) 0.5 % Neutrophils # (Auto) 5.57 1.4-6.5 K/uL Lymphocytes # (Auto) 2.78 1.2-3.4 K/uL Monocytes # (Auto) 0.52 0.11-0.59 K/uL Eosinophils # (Auto) 0.64 0-0.5 K/uL Basophils # (Auto) 0.05 0-0.2 K/uL RDW Standard Deviation 57.3 36.4-46.3 fL RDW Coefficient of Variation 15.9 11.5-14.5 % Immature Granulocyte % (Auto) 5.3 % Immature Granulocyte # (Auto) 0.53 0.00-0.02 K/uL Toxic Granulation 1+ Poikilocytosis PRESENT Anisocytosis PRESENT Prothrombin Time 11.1 9.0-12.0 SECONDS Prothromb Time International Ratio 1.0 0.9-1.1 Activated Partial Thromboplast Time 24.5 21.0-31.0 SECONDS Partial Thromboplastin Ratio 0.9 Sodium Level 148 136-145 mmol/L Potassium Level 5.5 3.5-5.1 mmol/L Chloride Level 118 98-107 mmol/L Carbon Dioxide Level 22 21-32 mmol/L Anion Gap 8.0 3-11 mmol/L Blood Urea Nitrogen 60 7-18 mg/dl Creatinine 3.80 0.60-1.20 mg/dl Est Creatinine Clear Calc Drug Dose 9.7 ml/min Estimated GFR () 12.0 Estimated GFR (Non- 10.4 BUN/Creatinine Ratio 15.7 10-20 Random Glucose 97 70-99 mg/dl Calcium Level 8.1 8.5-10.1 mg/dl Magnesium Level 2.1 1.8-2.4 mg/dl Total Bilirubin 0.2 0.2-1 mg/dl Direct Bilirubin < 0.1 0-0.2 mg/dl Aspartate Amino Transf (AST/SGOT) 15 15-37 U/L Alanine Aminotransferase (ALT/SGPT) 17 12-78 U/L Alkaline Phosphatase 87 45-117 U/L Total Creatine Kinase 16 26-192 U/L Creatine Kinase MB 0.9 0.5-3.6 ng/ml Creatine Kinase MB Ratio 5.6 0-3.0 Troponin I 0.017 0-0.045 ng/ml Pro-B-Type Natriuretic Peptide 07136 0-1800 pg/ml Total Protein 6.3 6.4-8.2 gm/dl Albumin 2.8 3.4-5.0 gm/dl Lipase 350 73-393 U/L Microbiology Results 12/02/16 Urine Culture, Received Pending Diagnostic Radiology CHEST ONE VIEW PORTABLE HISTORY: Generalized abdominal pain. COMPARISON: Chest 11/05/2016. FINDINGS: The heart remains borderline enlarged. No focal lung consolidations to suggest pneumonia. No evidence for pulmonary edema. A right PICC terminates in the SVC. There is a left-sided single lead pacemaker/defibrillator. Suspect trace bilateral pleural effusions. No pneumothorax. IMPRESSION: Trace bilateral pleural effusions. ABDOMEN AND PELVIS CT WITHOUT CONTRAST CT DOSE: 315.72 mGy.cm HISTORY: Generalized abdominal pain. recent stent removal TECHNIQUE: Multiaxial CT images of the abdomen and pelvis were performed without contrast. COMPARISON STUDY: Abdomen and pelvis CT 11/05/2016. FINDINGS: Trace bilateral pleural effusions. A pacemaker wire is noted. Small hiatus hernia. Bibasilar subsegmental atelectasis. No pneumoperitoneum. No pneumatosis. Cholecystectomy. The unenhanced liver, pancreas, spleen, and adrenal glands are unremarkable. The uterus is surgically absent. No retroperitoneal lymphadenopathy. Bilateral renal stones measuring up to 3 mm. Moderate bilateral cortical atrophy. No hydronephrosis. Mild bladder wall thickening and mild fat stranding surrounding the bladder. Mild bilateral urothelial thickening within the renal pelvis and ureters. No ureteral stones. No hydronephrosis. Suboptimal evaluation for bowel pathology due to the lack of intravenous and oral contrast. Multiple colonic diverticula. Focal mild thickening at the proximal sigmoid colon with surrounding mild fat stranding. This is consistent with acute diverticulitis. No extraluminal gas or abscess identified at this time. IMPRESSION: 1. Proximal acute sigmoid diverticulitis. 2. Mild urothelial thickening within the renal pelvises and ureters. There is also mild bladder wall thickening with adjacent fat stranding. Findings likely represent a pyelitis/cystitis. Recommend correlation with urinalysis. 3. Bilateral nephrolithiasis. No hydronephrosis. Impression Assessment and Plan (1) UTI (urinary tract infection) (2) Diverticulitis (3) Bilateral hydronephrosis (4) Chronic renal insufficiency (5) Hypernatremia (6) Chronic kidney disease (7) History of ureter stent (8) Systolic CHF (9) C. difficile colitis Urinary Tract Infection - Reviewed previous culture: Has previously crown Klebsiella (pansensitive) and E.coli (resistant to Cipro) Acute Diverticulitis - As noted on CT scan - Start Flagyl - Rocephin for gram negative coverage (provides concurrent UTI coverage based on previous organisms grown and known sensitivities) History of Bilateral Hydronephrosis - Suspected 2/2 chronic obstruction from recurrent urinary tract infections - S/p bilateral ureteral stent removal on 11/15/2016 with drastic improvement in renal function on arrival today - Repeat CT shows no evidence of hydronephrosis Chronic Kidney Disease - Cr 3.8, currently near baseline; no indication to consult nephrology at this time - K is currently 5.5, no acute EKG changes consistent with hyperkalemia - Review of previous records indicate she has previously decline to have dialysis - Monitor daily Chronic C.Diff Suppression - Will repeat C.diff toxin to confirm patient does not need to be on contact precautions - Continue Vancomycin PO daily GI Bleeding - As noted by , small amount in BM yesterday morning without recurrence - Review Hb of 10, which is better than baseline - Possibly 2/2 diverticulitis - Check hemoccult - At this point, there is not concern warranting holding anti-platelet or anticoagulation; will monitor for signs of bleeding History of CAD with hx of systolic CHF and AICD - Continue ASA and Plavix - Continue Atorvastatin - Continue Coreg - ACEi/ARB contra-indicated due to chronic renal dysfunction - Most recent EF as of 06/01 was 35-40% - Elevated pro-BNP though Clinically patient is euvolemic, small bilateral effusions on CXR; monitor daily weights, with strict I/Os GERD - Continue Pantoprazole DVT prophylaxis - Heparin sc 5000 TID - SCD Code Status - Level I Disposition - Med/Surg Level of Care Med/Surg Resuscitation Status FULL RESUSCITATION VTE Prophylaxis VTE Risk Assessment Done? Y/N: Yes Risk Level: Moderate Given or contraindicated: Unfractionated heparin SQ Assessment and Plan Attending Addendum: I have physically seen and examined this patient, have directed their medical care, have supervised the medical residents activities, and agree with the H&P as noted above, with the following changes: NONE Problem Qualifiers (1) UTI (urinary tract infection): Urinary tract infection type: site unspecified Hematuria presence: without hematuria Qualified Codes: N39.0 - Urinary tract infection, site not specified (2) Diverticulitis: Diverticulitis site: large intestine Diverticulitis bleeding: without bleeding Diverticulitis complication: unspecified complication status Qualified Codes: K57.32 - Diverticulitis of large intestine without perforation or abscess without bleeding (3) Chronic renal insufficiency: Chronic kidney disease stage: unspecified stage Qualified Codes: N18.9 - Chronic kidney disease, unspecified
[2016-12-02 20:28] VITALS: Ht 162.6 cm; Wt 63.6 kg
[2016-12-02] MEDS ORDERED: CIPROFLOXACIN / D5W 400 MG in PREMIXED IN D5W 200 ML IV SCH (21:00)
[2016-12-02 21:12] VITALS: BP 163/83; PULSE 79; TEMP 36.5; O2SAT 98
[2016-12-02] MEDS ORDERED: NURSING DECISION MEDICATION ORDER SCH (21:15)
[2016-12-02] MEDS: SODIUM CHLORIDE 0.45% 1000ML 1,000 ML IV SCH (21:23)
[2016-12-02] MEDS: HEPARIN SOD 5000 UNIT/0.5 ML CARP SQ SCH (22:00)
[2016-12-02] MEDS: METRONIDAZOLE / NSS 500 MG in PREMIXED NSS 100 ML IV SCH (22:50)
[2016-12-02] MEDS: NYSTATIN POWDER 15GM BTL EXT SCH (22:53)
[2016-12-02] MEDS: ASPIRIN 81 MG ECTAB PO SCH (22:54)
[2016-12-02] MEDS: LACTOBACILLUS ACIDOPHILUS (FLORANEX) TAB PO SCH (22:54)
[2016-12-02] MEDS: ATORVASTATIN 40 MG TAB PO SCH (22:54)
[2016-12-02] MEDS: CLOPIDOGREL BISULFATE 75 MG TAB PO SCH (22:55)
[2016-12-03 00:14] VITALS: BP 134/72; PULSE 73; TEMP 36.5; O2SAT 96
[2016-12-03 06:03] VITALS: BP 144/81; PULSE 77; TEMP 36.4; O2SAT 100
[2016-12-03 06:06] LABS: HEMATOCRIT 31.7 % (37-47); MEAN CELL VOLUME 98.4 fL (80-100); MEAN CORPUSCULAR HEMOGLOBIN 30.7 pg (25-34); MEAN CORPUSCULAR HGB CONC 31.2 g/dl (32-36); MEAN PLATELET VOLUME 9.7 fL (7.4-10.4); PLATELET COUNT 124 K/uL (130-400); RED BLOOD COUNT 3.22 M/uL (4.2-5.4); WHITE BLOOD COUNT 9.11 K/uL (4.8-10.8)
[2016-12-03] MEDS: METRONIDAZOLE / NSS 500 MG in PREMIXED NSS 100 ML IV SCH ×3 (06:10→21:49)
[2016-12-03] MEDS: HEPARIN SOD 5000 UNIT/0.5 ML CARP SQ SCH ×3 (06:14→21:48)
[2016-12-03 06:42] LABS: BUN/CREATININE RATIO 15.3 (10-20); CREATININE 3.5 mg/dl (0.60-1.20); POTASSIUM 4.9 mmol/L (3.5-5.1)
[2016-12-03 06:56] LABS: URINE APPEARANCE CLEAR (CLEAR); URINE BILIRUBIN NEG (NEG); URINE COLOR YELLOW; URINE EPITHELIAL CELL AUTO >30 /lpf (0-5); URINE NITRITE NEG (NEG); URINE SPECIFIC GRAVITY 1.013 (1.000-1.030); UROBILINOGEN NEG (NEG)
[2016-12-03 07:03] LABS: MANUAL MICROSCOPIC REQUIRED? NO; REVIEW REQ? YES
[2016-12-03 08:00] VITALS: O2SAT 100
[2016-12-03] MEDS: LOTEMAX~ORDER AWAITING ACTION SCH ×3 (08:00→16:00)
[2016-12-03] MEDS: ULORIC~ORDER AWAITING ACTION SCH ×4 (08:00→23:51)
[2016-12-03] MEDS: RASPBERRY SYRUP 5 ML UDP PO SCH (09:16)
[2016-12-03] MEDS: VANCOMYCIN HCL 125 MG/2.5ML SOLN PO SCH (09:16)
[2016-12-03] MEDS: CARVEDILOL 12.5 MG TAB PO SCH (09:16)
[2016-12-03] MEDS: CHOLECALCIFEROL 400 INTER.UNIT TAB PO SCH (09:16)
[2016-12-03] MEDS: CEROVITE ADV FORMULA TAB PO SCH (09:16)
[2016-12-03] MEDS: PANTOprazole SOD 40 MG TAB PO SCH (09:17)
[2016-12-03] MEDS: SODIUM BICARBONATE 650 MG TAB PO SCH (09:17)
[2016-12-03] MEDS: NYSTATIN POWDER 15GM BTL EXT SCH ×2 (09:18→21:46)
[2016-12-03] MEDS: SODIUM CHLORIDE 0.45% 1000ML 1,000 ML IV SCH (14:27)
--- NOTE | 2016-12-03 14:47 | Progress Note ---
Subjective Date of Service: Dec 03, 2016. Subjective Pt evaluation today including: conversation w/ patient, conversation w/ family , physical exam, chart review, lab review, review of studies, review of inpatient medication list Voiding: henriquez catheter in place reported patient mentally function much better compared to yesterday When I interviewed with the patient she was awake and alert, looking at her baseline Hospital report patient was getting feeding with a fair amount, no fever and chill no other complaint Problem List Medical Problems: (1) Acute kidney failure Status: Acute (2) Acute on chronic kidney failure Status: Acute (3) Acute renal failure Status: Acute (4) Altered mental status Status: Acute (5) Altered mental status Status: Acute (6) ARF (acute renal failure) Status: Acute (7) Chronic renal insufficiency Status: Acute (8) CRD (chronic renal disease) Status: Acute (9) Dehydration Status: Acute (10) Dehydration Status: Acute (11) Diverticulitis Status: Acute (12) Fever Status: Acute (13) Hyperkalemia Status: Acute (14) Hyperkalemia Status: Acute (15) Hyperkalemia Status: Acute (16) Hypomagnesemia Status: Acute (17) PICC (peripherally inserted central catheter) in place Status: Acute (18) Pneumonia Status: Acute (19) Renal failure Status: Acute (20) Renal insufficiency Status: Acute (21) Renal insufficiency Status: Acute (22) Sepsis Status: Acute (23) Sepsis Status: Acute (24) Uremia Status: Acute (25) UTI (urinary tract infection) Status: Acute (26) UTI (urinary tract infection) Status: Acute (27) UTI (urinary tract infection) Status: Acute (28) Weakness Status: Acute (29) Weakness Status: Acute (30) Weakness Status: Acute (31) Weakness Status: Acute (32) Weakness Status: Acute Review of Systems Constitutional: + problem reported (is limited because patient herself is not really engage in conversation) Objective Vital Signs Date Time Temp Pulse Resp B/P (MAP) Pulse Ox O2 Delivery O2 Flow Rate FiO2 12/03/16 08:00 100 Nasal Cannula 2.0 12/03/16 06:03 36.4 77 18 144/81 (102) 100 Nasal Cannula 2.0 12/03/16 00:30 Nasal Cannula 2.0 12/03/16 00:14 36.5 73 16 134/72 (92) 96 Nasal Cannula 2.0 12/02/16 21:12 36.5 79 16 163/83 (109) 98 Nasal Cannula 2.0 12/02/16 20:32 79 16 132/74 98 12/02/16 20:28 Nasal Cannula 2.0 12/02/16 18:47 80 14 144/74 98 Room Air 12/02/16 17:04 36.7 83 20 151/76 95 Room Air 12/02/16 16:55 84 Physical Exam General Appearance: WD/WN, no apparent distress, + pertinent finding (awake and alert, no acute distress, patient looks frail however she looked me is in her baseline) Eyes: normal inspection, PERRL, EOMI, sclerae normal ENT: normal ENT inspection, hearing grossly normal, pharynx normal Neck: supple, no adenopathy, thyroid normal, no JVD, no carotid bruits, trachea midline Respiratory/Chest: chest non-tender, normal breath sounds, no respiratory distress, no accessory muscle use, + decreased breath sounds Cardiovascular: regular rate, rhythm, no edema, no gallop, no JVD, no murmur Abdomen: normal bowel sounds, non tender, soft, no organomegaly, no pulsatile mass Extremities: normal range of motion, non-tender, normal inspection, no pedal edema, no calf tenderness, normal capillary refill, pelvis stable Neurologic/Psychiatric: clockmaker II-XII nml as tested, no motor/sensory deficits, alert, normal mood/affect, oriented x 3 Skin: normal color, warm/dry, no rash Lymphatic: no adenopathy Laboratory Results Last 24 Hours Test 12/02/16 16:54 12/02/16 17:15 12/03/16 00:00 12/03/16 03:15 Urine Color YELLOW YELLOW Urine Appearance CLOUDY CLEAR Urine pH 6.5 7.0 Urine Specific [place] 1.014 1.013 Urine Protein 1+ 1+ Urine Glucose (UA) NEG NEG Urine Ketones NEG NEG Urine Occult Blood 2+ 1+ Urine Nitrite NEG NEG Urine Bilirubin NEG NEG Urine Urobilinogen NEG NEG Urine Leukocyte Esterase LARGE MODERATE Urine WBC (Auto) >30 /hpf >30 /hpf Urine RBC (Auto) 10-30 /hpf 5-10 /hpf Urine Hyaline Casts (Auto) 1-5 /lpf 1-5 /lpf Urine Epithelial Cells (Auto) 20-30 /lpf >30 /lpf Urine Bacteria (Auto) NEG NEG White Blood Count 10.09 K/uL Red Blood Count 3.37 M/uL Hemoglobin 10.1 g/dL Hematocrit 33.1 % Mean Corpuscular Volume 98.2 fL Mean Corpuscular Hemoglobin 30.0 pg Mean Corpuscular Hemoglobin Concent 30.5 g/dl Platelet Count 136 K/uL Mean Platelet Volume 9.3 fL Neutrophils (%) (Auto) 55.1 % Lymphocytes (%) (Auto) 27.6 % Monocytes (%) (Auto) 5.2 % Eosinophils (%) (Auto) 6.3 % Basophils (%) (Auto) 0.5 % Neutrophils # (Auto) 5.57 K/uL Lymphocytes # (Auto) 2.78 K/uL Monocytes # (Auto) 0.52 K/uL Eosinophils # (Auto) 0.64 K/uL Basophils # (Auto) 0.05 K/uL RDW Standard Deviation 57.3 fL RDW Coefficient of Variation 15.9 % Immature Granulocyte % (Auto) 5.3 % Immature Granulocyte # (Auto) 0.53 K/uL Toxic Granulation 1+ Poikilocytosis PRESENT Anisocytosis PRESENT Prothrombin Time 11.1 SECONDS Prothromb Time International Ratio 1.0 Activated Partial Thromboplast Time 24.5 SECONDS Partial Thromboplastin Ratio 0.9 Sodium Level 148 mmol/L Potassium Level 5.5 mmol/L Chloride Level 118 mmol/L Carbon Dioxide Level 22 mmol/L Anion Gap 8.0 mmol/L Blood Urea Nitrogen 60 mg/dl Creatinine 3.80 mg/dl Est Creatinine Clear Calc Drug Dose 9.7 ml/min Estimated GFR () 12.0 Estimated GFR (Non- 10.4 BUN/Creatinine Ratio 15.7 Random Glucose 97 mg/dl Calcium Level 8.1 mg/dl Magnesium Level 2.1 mg/dl Total Bilirubin 0.2 mg/dl Direct Bilirubin < 0.1 mg/dl Aspartate Amino Transf (AST/SGOT) 15 U/L Alanine Aminotransferase (ALT/SGPT) 17 U/L Alkaline Phosphatase 87 U/L Total Creatine Kinase 16 U/L Creatine Kinase MB 0.9 ng/ml Creatine Kinase MB Ratio 5.6 Troponin I 0.017 ng/ml Pro-B-Type Natriuretic Peptide 68325 pg/ml Total Protein 6.3 gm/dl Albumin 2.8 gm/dl Lipase 350 U/L Urine Renal Epithelial Cells /lpf Test 12/03/16 05:25 White Blood Count 9.11 K/uL Red Blood Count 3.22 M/uL Hemoglobin 9.9 g/dL Hematocrit 31.7 % Mean Corpuscular Volume 98.4 fL Mean Corpuscular Hemoglobin 30.7 pg Mean Corpuscular Hemoglobin Concent 31.2 g/dl RDW Standard Deviation 58.1 fL RDW Coefficient of Variation 16.1 % Platelet Count 124 K/uL Mean Platelet Volume 9.7 fL Sodium Level 146 mmol/L Potassium Level 4.9 mmol/L Chloride Level 118 mmol/L Carbon Dioxide Level 20 mmol/L Anion Gap 8.0 mmol/L Blood Urea Nitrogen 53 mg/dl Creatinine 3.50 mg/dl Est Creatinine Clear Calc Drug Dose 10.5 ml/min Estimated GFR () 13.3 Estimated GFR (Non- 11.4 BUN/Creatinine Ratio 15.3 Random Glucose 96 mg/dl Calcium Level 8.0 mg/dl Pro-B-Type Natriuretic Peptide 37664 pg/ml Assessment and Plan 86-year-old white female, with multiple admissions because of UTI mental status change, she admitted on 12/02/2016 because of possible acute diverticulitis Urinary Tract Infection - Reviewed previous culture: Has previously crown Klebsiella (pansensitive) and E.coli (resistant to Cipro) - Continue the Rocephin and metronidazole Acute Diverticulitis - As noted on CT scan - Start Flagyl - Rocephin for gram negative coverage (provides concurrent UTI coverage based on previous organisms grown and known sensitivities) History of Bilateral Hydronephrosis - Suspected 2/2 chronic obstruction from recurrent urinary tract infections - S/p bilateral ureteral stent removal on 11/15/2016 with drastic improvement in renal function on arrival today - Repeat CT shows no evidence of hydronephrosis Chronic Kidney Disease - Cr 3.8, currently near baseline; no indication to consult nephrology at this time - K is currently 5.5, no acute EKG changes consistent with hyperkalemia - Review of previous records indicate she has previously decline to have dialysis - Monitor daily GI Bleeding - As noted by , small amount in BM yesterday morning without recurrence - Checkinhy hemoccult History of CAD with hx of systolic CHF and AICD - Continue ASA and Plavix - Continue Atorvastatin - Continue Coreg - ACEi/ARB contra-indicated due to chronic renal dysfunction - Most recent EF as of 06/01 was 35-40% - Elevated pro-BNP though Clinically patient is euvolemic, small bilateral effusions on CXR; monitor daily weights, with strict I/Os GERD PPI PPI DVT prophylaxis - Heparin sc 5000 - SCD Code Status - Level I Continued [facility] stay due to: multiple IV medications needed Discharge planning: home with home health
[2016-12-03 15:42] VITALS: BP 112/53; PULSE 83; TEMP 36.4; O2SAT 100
[2016-12-03 16:00] VITALS: O2SAT 100
[2016-12-03] MEDS ORDERED: CEFTRIAXONE SOD INJ 1 GM in DEXTROSE 5% ADD-VANTAGE 50ML 50 ML IV SCH (18:00)
[2016-12-03] MEDS: LACTOBACILLUS ACIDOPHILUS (FLORANEX) TAB PO SCH (21:48)
[2016-12-03] MEDS: CLOPIDOGREL BISULFATE 75 MG TAB PO SCH (21:48)
[2016-12-03] MEDS: ATORVASTATIN 40 MG TAB PO SCH (21:49)
[2016-12-03] MEDS: ASPIRIN 81 MG ECTAB PO SCH (21:49)
[2016-12-03 23:10] VITALS: BP 129/76; PULSE 74; TEMP 36.9; O2SAT 99
[2016-12-04] MEDS: SODIUM CHLORIDE 0.45% 1000ML 1,000 ML IV SCH (02:27)
[2016-12-04 05:55] LABS: HEMATOCRIT 30.9 % (37-47); MEAN CELL VOLUME 97.2 fL (80-100); MEAN CORPUSCULAR HEMOGLOBIN 30.5 pg (25-34); MEAN CORPUSCULAR HGB CONC 31.4 g/dl (32-36); MEAN PLATELET VOLUME 9.8 fL (7.4-10.4); PLATELET COUNT 113 K/uL (130-400); RED BLOOD COUNT 3.18 M/uL (4.2-5.4); WHITE BLOOD COUNT 7.84 K/uL (4.8-10.8)
[2016-12-04] MEDS: HEPARIN SOD 5000 UNIT/0.5 ML CARP SQ SCH ×2 (06:00→06:05)
[2016-12-04] MEDS: METRONIDAZOLE / NSS 500 MG in PREMIXED NSS 100 ML IV SCH (06:06)
[2016-12-04 06:19] LABS: BUN/CREATININE RATIO 14.5 (10-20); CALCIUM 7.5 mg/dl (8.5-10.1); CREATININE 3.2 mg/dl (0.60-1.20); MAGNESIUM 1.7 mg/dl (1.8-2.4)
[2016-12-04 07:58] VITALS: BP 147/77; PULSE 76; TEMP 36.7; O2SAT 90
[2016-12-04 08:00] VITALS: O2SAT 94
[2016-12-04] MEDS: ULORIC~ORDER AWAITING ACTION SCH (08:00)
[2016-12-04] MEDS ORDERED: LOTEPREDNOL ETABONATE 0.5% OPB SCH (09:00)
[2016-12-04] MEDS ORDERED: CPR500 PO (09:01)
[2016-12-04] MEDS ORDERED: METR-162 PO (09:01)
--- NOTE | 2016-12-04 09:04 | Discharge Instructions ---
Discharge Instructions Date of Service Dec 04, 2016. Admission Reason for Admission: Uti (Urinary Tract Infection) Discharge Discharge Diagnosis / Problem: acute diverticulitis Discharge Goals Goal(s): Decrease discomfort, Improve function, Increase independence, Improve disease control, Improve nutritional status, Learn about illness, Diagnostic testing, Therapeutic intervention, Prevent Disease Progression, Specific goals Activity Recommendations Activity Limitations: resume your previous activity . Instructions / Follow-Up Instructions / Follow-Up you ahve Acute Diverticulitis possible has no UTI will need to continue Cipro and Flagyl for 10 days more - you need to follow up with your primary care physician in 1 week, - take medication as instructed, never overdose or any misuse, or take with alcohol, because misuse of medicine may cause organ damage or , call your primary care physician if have questions of medicaitons. - call your primary care physician OR go to local emergency room if has any fever/chill, chest pain, shortness of breathing, nausea/vomiting/abdominal pain , facial droop/slurry speech/local weakness, or if has any questions. - fall precaution - diet as instructed Current Hospital Diet Patient's current hospital diet: AHA Diet (Heart Healthy), Renal Diet Discharge Diet Recommended Diet: Renal Diet Pending Studies Studies pending at discharge: no Medical Emergencies . Who to Call and When: Medical Emergencies: If at any time you feel your situation is an emergency, please call 911 immediately. . Non-Emergent Contact Non-Emergency issues call your: Primary Care Provider . . "Provider Documentation" section prepared by Michael Cortez. . VTE Core Measure Inpt VTE Proph given/why not?: Unfractionated heparin SQ
[2016-12-04] MEDS ORDERED: MAGNESIUM OXIDE 400 MG TAB PO STA (09:46)
[2016-12-04] MEDS: CARVEDILOL 12.5 MG TAB PO SCH (09:54)
[2016-12-04] MEDS: CHOLECALCIFEROL 400 INTER.UNIT TAB PO SCH (09:54)
[2016-12-04] MEDS: PANTOprazole SOD 40 MG TAB PO SCH (09:55)
[2016-12-04] MEDS: CEROVITE ADV FORMULA TAB PO SCH (09:55)
[2016-12-04] MEDS: RASPBERRY SYRUP 5 ML UDP PO SCH (09:55)
[2016-12-04] MEDS: VANCOMYCIN HCL 125 MG/2.5ML SOLN PO SCH (09:55)
[2016-12-04] MEDS: SODIUM BICARBONATE 650 MG TAB PO SCH (09:56)
[2016-12-04] MEDS: NYSTATIN POWDER 15GM BTL EXT SCH (09:56)
[2016-12-04 10:24] VITALS: BP 147/77; PULSE 76; TEMP 36.7; O2SAT 94
--- NOTE | 2016-12-04 11:40 | Discharge Summary ---
Discharge Summary Date of Service Dec 04, 2016. Discharge Summary Admission Date: Dec 02, 2016 at 19:48 Discharge Date: Dec 04, 2016 Discharge Disposition: Home Principal Diagnosis: Acute Diverticulitis Problems/Secondary Diagnoses: possible has no UTI Immunizations: Have You Had Influenza Vaccine: Yes Influenza Vaccine Date: Mar 17, 2010 History of Tetanus Vaccine?: No History of Pneumococcal: No Pneumococcal Date: Jun 06, 2011 History of Hepatitis B Vaccine: No Procedures: No Consultations: No Medication Reconciliation New Medications: Ciprofloxacin (Ciprofloxacin HCl) 500 Mg Tab 500 MG PO Q12 for 10 Days Metronidazole (Flagyl) 500 Mg Tab 1 TAB PO TID for 10 Days, #30 TAB Continued Medications: Aspirin (Aspirin) 81 Mg Tab 81 MG PO QPM Atorvastatin (Lipitor) 80 Mg Tab 80 MG PO QPM Carvedilol (Coreg) 12.5 Mg Tab 12.5 MG PO QAM, TAB Cholecalciferol (Vitamin D3) 1,000 Unit Tab 1 TAB PO DAILY for 90 Days, #90 TAB 3 Refills Clopidogrel Bisulfate (Clopidogrel) 75 Mg Tab 75 MG PO QPM Febuxostat (Uloric) 40 Mg Tab 40 MG PO NOON TAKE THIS MEDICATION DAILY WITH LUNCH Lorazepam (Ativan) 0.5 Mg Tab 0.5 MG PO Q6H PRN for Anxiety, TAB Loteprednol Etabonate (Lotemax) 0.5 % Gel 1 DROP OPB QAM Multiple Vitamins W/ Minerals (Centrum Silver Ultra Wome) 1 Tab Tab 1 TAB PO QAM Nystatin (Nystop) 45 Appln/15 Gm Powd 1 DOSE TOP BID Ondasetron Odt (Zofran Odt) 4 Mg Tab 4 MG PO Q6H PRN for Nausea Pantoprazole (Pantoprazole Sodium) 40 Mg Tab 40 MG PO QAM Probiotic Product (Probiotic) 1 Cap Cap 1 TAB PO QPM Sodium Bicarbonate (Sodium Bicarbonate) 650 Mg Tab 1 TAB PO QAM Vancomycin Hcl (Vancomycin) 125 Mg Cap 125 MG PO QAM [cranberry tablets] () 1 TAB PO QID, #120 6 Refills ac hs Discharge Exam Continue to feeling okay, awake and alert, Feeding, no diarrhea /constipation Review of Systems: Constitutional: No fever, No chills, No sweats, No weight loss, No weakness , No fatigue, No problem reported Eyes: No worsening of vision, No eye pain, No redness, No discharge, No diplopia, No problem reported ENT: No hearing loss, No unusual epistaxis, No nasal symptoms, No sore throat, No tinnitus, No dental problems, No trouble swallowing, No problem reported Respiratory: No cough, No sputum, No wheezing, No shortness of breath, No dyspnea on exertion, No dyspnea at rest, No hemoptysis, No problem reported Cardiovascular: No chest pain, No orthopnea, No PND, No edema, No claudication, No palpitations, No problem reported Abdomen: No pain, No nausea, No vomiting, No diarrhea, No constipation, No GI bleeding, No problem reported Genitourinary - Female: No dysuria, No urinary frequency, No urinary urgency , No urinary incontinence, No urinary retention, No hematuria, No dysmenorrhea, No menorrhagia, No metrorrhagia, No rash, No vaginal bleeding, No vaginal discharge, No vaginal itching, No vulvodynia, No , No problem reported Neurologic: + memory loss, No paralysis, No weakness Psychiatric: No depression symptoms, No anhedonism, No anxiety, No insomnia , No substance abuse, No problem reported Endocrine: No fatigue, No excessive thirst, No excessive urination, No problem reported Hematologic / Lymphatic: No abnormal bleeding/bruising, No clotting problems , No swollen lymph nodes, No night sweats, No problem reported Physical Exam: General Appearance: WD/WN, + pertinent finding (chronic ill-looking) Eyes: normal inspection, PERRL ENT: normal ENT inspection, hearing grossly normal Respiratory/Chest: + decreased breath sounds Cardiovascular: regular rate, rhythm, no edema, no gallop Abdomen / GI: normal bowel sounds, non tender, soft, + pertinent finding ( Nam catheter in place) Extremities: normal inspection, no calf tenderness 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, no motor/sensory deficits , alert, normal mood/affect Skin: normal color Hospital Course 86-year-old white female, with multiple admissions because of UTI mental status change, admitted on 12/02/2016 because of possible acute diverticulitis Acute Diverticulitis - As noted on CT scan - Started Flagyl - Rocephin for gram negative coverage (provides concurrent UTI coverage based on previous organisms grown and known sensitivities) - Change to oral Flagyl and Cipro for total 10 days Possible has no Urinary Tract Infection was urine culture possible contamination History of Bilateral Hydronephrosis - Suspected 2/2 chronic obstruction from recurrent urinary tract infections - S/p bilateral ureteral stent removal on 11/15/2016 with drastic improvement in renal function on arrival today - Repeat CT shows no evidence of hydronephrosis Chronic Kidney Disease, stable - Cr 3.8 upon admission, which is near baseline; today is 3.2 - K is currently 5.5 upon admission, Zoloft GI Bleeding - As noted by , small amount in BM yesterday morning without recurrence - Checkinhy hemoccult, which was negative, - I told to call PCP if notice any blood in the stool , he agreed History of CAD with hx of systolic CHF and AICD: Stable - Continue ASA and Plavix - Continue Atorvastatin - Continue Coreg - ACEi/ARB contra-indicated due to chronic renal dysfunction - Most recent EF as of 06/01 was 35-40% - Elevated pro-BNP though Clinically patient is euvolemic, small bilateral effusions on CXR; monitor daily weights, with strict I/Os GERD PPI DVT prophylaxis - Heparin sc 5000 - SCD Code Status - Level I Discussed with about care plan, answer all questions Instructions / Follow-Up you ahve Acute Diverticulitis possible has no UTI will need to continue Cipro and Flagyl for 10 days more - you need to follow up with your primary care physician in 1 week, - take medication as instructed, never overdose or any misuse, or take with alcohol, because misuse of medicine may cause organ damage or , call your primary care physician if have questions of medicaitons. - call your primary care physician OR go to local emergency room if has any fever/chill, chest pain, shortness of breathing, nausea/vomiting/abdominal pain , facial droop/slurry speech/local weakness, or if has any questions. - fall precaution - diet as instructed Total Time Spent: Greater than 30 minutes This includes examination of the patient, discharge planning, medication reconciliation, and communication with other providers. Discharge Instructions Please refer to the electronic Patient Visit Report (Discharge Instructions) for additional information. Additional Copies To Jan Cervantes M.D.
== END 2016-12-04 11:50 | disposition home health service (06) ==
LOC: EDBD 16:42 → C.EDB 16:43 → C.MS2W 19:48 → EDBEDREQ 20:18 → ENRESERV 20:22 → EDBEDREQ 20:29
PROVIDERS: ADMIT Student in an Organized Health Care Education/Training Program; ATTEND Hospitalist
DX: K57.32 Diverticulitis of large intestine without perforation or abscess without bleeding (principal); N39.0 Urinary tract infection, site not specified; I13.0 Hypertensive heart and chronic kidney disease with heart failure and stage 1 through stage 4 chronic kidney disease, or unspecified chronic kidney disease; N18.4 Chronic kidney disease, stage 4 (severe); N17.9 Acute kidney failure, unspecified; I50.20 Unspecified systolic (congestive) heart failure; E11.22 Type 2 diabetes mellitus with diabetic chronic kidney disease; D64.9 Anemia, unspecified; I25.10 Atherosclerotic heart disease of native coronary artery without angina pectoris; I25.5 Ischemic cardiomyopathy; I25.2 Old myocardial infarction; N25.81 Secondary hyperparathyroidism of renal origin; Z79.82 Long term (current) use of aspirin; Z79.899 Other long term (current) drug therapy; K21.9 Gastro-esophageal reflux disease without esophagitis

== ENCOUNTER → 2016-12-05 | Outpatient (CLI) | payer MEDICARE ==
[~2016-12-05] MED LIST changes: +COCO1OIL2 PO; +CPR500 PO; +CRAN1TAB PO; +CRG25 PO; +FURO-85 PO; +METR-162 PO
[2016-12-05 09:59] LABS: BLOOD UREA NITROGEN 47 mg/dl (7-18); BUN/CREATININE RATIO 14.3 (10-20); CARBON DIOXIDE 17 mmol/L (21-32); CHLORIDE 119 mmol/L (98-107); GLUCOSE 125 mg/dl (70-99); POTASSIUM 4.9 mmol/L (3.5-5.1); SODIUM 147 mmol/L (136-145)
== END | disposition home or self-care (01) ==
LOC: C.LABSPEC 08:55
PROVIDERS: ATTEND Internal Medicine Pulmonary Disease
DX: N18.4 Chronic kidney disease, stage 4 (severe) (principal)

== ENCOUNTER → 2016-12-11 | Outpatient (CLI) | payer MEDICARE ==
[~2016-12-11] MED LIST changes: -CRG25 PO; -FURO-85 PO
[2016-12-11 10:32] LABS: BLOOD UREA NITROGEN 49 mg/dl (7-18); CARBON DIOXIDE 18 mmol/L (21-32); CHLORIDE 116 mmol/L (98-107); GLUCOSE 150 mg/dl (70-99); PHOSPHORUS 3.7 mg/dl (2.5-4.9); POTASSIUM 4.9 mmol/L (3.5-5.1); SODIUM 145 mmol/L (136-145)
[2016-12-11 13:25] LABS: CALCIUM 8.4 mg/dl (8.5-10.1)
== END | disposition home or self-care (01) ==
LOC: C.LABSPEC 08:11
PROVIDERS: ATTEND Internal Medicine Nephrology
DX: N18.4 Chronic kidney disease, stage 4 (severe) (principal)

== ENCOUNTER → 2016-12-21 | Day surgery (SDC) | payer MEDICARE ==
[~2016-12-21] VITALS: Ht 165.1 cm; Wt 60.0 kg
[~2016-12-21] MED LIST changes: +ALTEPLASE, RECOMBINANT 1 MG/ML 2 ML VIAL IV ONE; -METR-162 PO; -PANT40TA2 PO; +PRT/40 PO
[2016-12-21 09:50] VITALS: BP 104/66; PULSE 82; TEMP 36.4; O2SAT 98; Ht 165.1 cm; Wt 60.0 kg
== END | disposition home or self-care (01) ==
LOC: C.MTU 09:35
PROVIDERS: ATTEND Internal Medicine Infectious Disease
DX: Z45.2 Encounter for adjustment and management of vascular access device (principal)

== ENCOUNTER → 2016-12-25 | Outpatient (CLI) | payer MEDICARE ==
[~2016-12-25] MED LIST changes: -ALTEPLASE, RECOMBINANT 1 MG/ML 2 ML VIAL IV ONE
[2016-12-25 17:29] LABS: BLOOD UREA NITROGEN 50 mg/dl (7-18); BUN/CREATININE RATIO 15.7 (10-20); CALCIUM 8.3 mg/dl (8.5-10.1); CARBON DIOXIDE 21 mmol/L (21-32); CHLORIDE 117 mmol/L (98-107); GLUCOSE 118 mg/dl (70-99); POTASSIUM 5.1 mmol/L (3.5-5.1); SODIUM 146 mmol/L (136-145)
--- NOTE | 2016-12-27 07:33 | CODING QUERY MEDICAL NECESSITY ---
CQSUPPORTING DIAGNOSIS NEEDED A supporting diagnosis is required for the test/procedure performed on this patient in order for us to be reimbursed by the patient's insurance. Please provide a supporting diagnosis for the following test/procedure listed below next to the test name along with your signature. *If there is no additional diagnosis for this patient that would support the following test/procedure please document that below next to the test/procedure. Test(s)/Procedure(s) that require a supporting diagnosis: DOS 12/25/16 PARTIAL RENAL PROFILE Provider Signature: Date: Thank you Mary Martínez Health Information Management Once completed, please kindly fax back to [phone] For questions please call [phone]
== END | disposition home or self-care (01) ==
LOC: C.LABSPEC 13:06
PROVIDERS: ATTEND Internal Medicine Nephrology
DX: N18.3 Chronic kidney disease, stage 3 (moderate) (principal)

== ENCOUNTER 2017-01-01 07:41 | Observation (INO) | payer MEDICARE, OTHER ==
[~2017-01-01] VITALS: Ht 167.6 cm; Wt 70.6 kg
[~2017-01-01 07:41] MED LIST changes: -COCO1OIL2 PO; -CRAN1TAB PO
--- NOTE | 2017-01-01 08:00 | EMERGENCY ROOM VISIT NOTE ---
History Report prepared by Harrison: Barbie Pizarro Under the Supervision of: Dr. Nida Jalloh M.D. First contact with patient: 07:51 Chief Complaint: FALL Stated Complaint: EAR ACHE History of Present Illness The patient is a 81 year old female who presents to the Emergency Room with complaints of worsening weakness beginning this morning. Per the patient's , the patient woke up this morning with right ear pain. He did put drops in the patient's ear. The patient was being moved from the bed to her wheelchair when she collapsed to the ground due to weakness in her legs. She was hospitalized for an extended period of time recently and since then she has been experiencing worsening weakness. The patient has been cared for by her for the past 7 years since her MS. The patient has a history of UTI and renal failure. She does have a Picc line that was recently flushed. The patient' s appetite has been improving and she is doing well staying hydrated. She recently had stents removed by Dr. Reeves - Urology. Since then her creatine level has improved and she has had no UTI symptoms. The patient has not had recent head injuries, LOC or fevers. She is on Plavix. Source of History: spouse/significant other Onset: this morning Position: other (global) Quality: other (weakness) Timing: worsening Associated Symptoms: No LOC, No fevers Note: The patient is experiencing right ear pain. Review of Systems See HPI for pertinent positives & negatives. A total of 10 systems reviewed and were otherwise negative. Past Medical & Surgical Medical Problems: (1) Acute hypernatremia (2) Acute kidney injury (3) Acute on chronic renal failure (4) Acute renal failure superimposed on stage 4 chronic kidney disease (5) Acute urinary tract infection (6) Anemia (7) Benign hypertension (8) C. 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 (27) Recurrent UTI (28) Secondary hyperparathyroidism of renal origin (29) Sepsis (30) Sepsis due to Klebsiella (31) sepsis recurrent UTI BONNIE on ckd (32) Systolic CHF (33) UTI (urinary tract infection) (34) UTI (urinary tract infection) (35) UTI (urinary tract infection) (36) UTI, altered mental status (37) Weakness Surgical Problems: (1) History of cholecystectomy (2) History of ureter stent Family History Diabetes mellitus Other cardiovascular diseases Stroke Social History Smoking Status: Never Smoker Alcohol Use: none Drug Use: none Marital Status: Housing Status: lives with significant other Occupation Status: retired Current/Historical Medications Scheduled Aspirin (Aspirin), 81 MG PO QPM Atorvastatin (Lipitor), 80 MG PO QPM Carvedilol (Coreg), 12.5 MG PO QAM Cholecalciferol (Vitamin D3), 1 TAB PO DAILY Clopidogrel Bisulfate (Clopidogrel), 75 MG PO QPM Coconut Oil (Bulk) (Coconut Oil), 1 CAP PO HS Cranberry (Vaccinium Macrocarp (Cranberry), Unknown Dose PO QID Febuxostat (Uloric), 40 MG PO NOON Loteprednol Etabonate (Lotemax), 1 DROP OPB QAM Multiple Vitamins W/ Minerals (Centrum Silver Ultra Wome), 1 TAB PO QAM Nystatin (Nystop), 1 DOSE TOP BID Pantoprazole (Pantoprazole Sodium), 40 MG PO QAM Probiotic Product (Probiotic), 1 TAB PO QPM Sodium Bicarbonate (Sodium Bicarbonate), 1 TAB PO QAM Vancomycin Hcl (Vancomycin), 125 MG PO QAM Scheduled PRN Lorazepam (Ativan), 0.5 MG PO Q6H PRN for Anxiety Ondasetron Odt (Zofran Odt), 4 MG PO Q6H PRN for Nausea Allergies Coded Allergies: Sulfa Antibiotics (Verified Allergy, Intermediate, BODY SWELLING,NAUSEA AND VOMITNG, 01/01/17) Penicillins (Verified Allergy, Unknown, Tolerates Primaxin, does NOT tolerate ZOSYN, 01/01/17) PER PCP RECORDS Physical Exam Vital Signs Date Time Temp Pulse Resp B/P (MAP) Pulse Ox O2 Delivery O2 Flow Rate FiO2 01/01/17 11:04 77 16 136/70 100 01/01/17 10:40 100 Nasal Cannula 2.0 01/01/17 09:43 36.9 76 20 113/78 100 Nasal Cannula 2.0 01/01/17 07:50 85 01/01/17 07:45 37.0 86 18 136/76 98 Nasal Cannula 2.0 Physical Exam Vital signs reviewed. General: Chronically ill appearing elderly female, in no significant distress. Generalized weakness. HEENT: Left ear completely impacted by cerumen, right ear clear. No scleral icterus, PERRLA, neck supple. Atraumatic. Cardiovascular: Regular rate and rhythm, no extra sounds. Pulmonary: Clear to auscultation bilaterally, normal work of breathing. Abdomen: Soft, nontender, nondistended, positive bowel sounds. Musculoskeletal: Picc line to right upper extremity. Generally atraumatic, no peripheral edema. Neurologic: Patient awake alert and oriented x 3, 3/5 strength bilaterally to lower extremities. Cranial nerves 2 through 12 grossly intact. Skin: Warm, dry, no rash Medical Decision & Procedures ER Provider Diagnostic Interpretation: X-ray results as stated below per interpretation by me and the radiologist: CHEST ONE VIEW PORTABLE HISTORY: 81 years Female acute weakness COMPARISON: Portable chest radiograph 12/02/2016 TECHNIQUE: Portable upright AP view of the chest FINDINGS: Cardiac silhouette is again mildly enlarged. Single lead left pectoral pacer/defibrillator is unchanged overlying the right ventricle. There is atherosclerosis and tortuosity of the thoracic aorta. Right-sided pelvic terminates in the right atrium. No pneumothorax, pleural effusion or focal airspace consolidation. There is chronic blunting of the costophrenic angles bilaterally suggesting areas of scarring or trace pleural effusions. Surgical clips are seen within the right upper abdomen. IMPRESSION: 1. No acute cardiopulmonary process. 2. Persistent blunting of the costophrenic angle suggests trace pleural effusions or pleural parenchymal scarring. The above report was generated using voice recognition software. It may contain grammatical, syntax or spelling errors. Electronically signed by: Dusty Gaviria M.D. 01/01/2017 9:00 AM Dictated Date/Time: 01/01/2017 8:58 AM Laboratory Results 01/01/17 08:24 Red Blood Count 3.48, Mean Corpuscular Volume 98.6, Mean Corpuscular Hemoglobin 31.0, Mean Corpuscular Hemoglobin Concent 31.5, Mean Platelet Volume 9.8, Neutrophils (%) (Auto) 66.1, Lymphocytes (%) (Auto) 21.5, Monocytes (%) (Auto) 6.0, Eosinophils (%) (Auto) 3.9, Basophils (%) (Auto) 0.4, Neutrophils # (Auto) 6.35, Lymphocytes # (Auto) 2.06, Monocytes # (Auto) 0.58, Eosinophils # (Auto) 0.37, Basophils # (Auto) 0.04 01/01/17 08:24 Test 01/01/17 08:24 01/01/17 08:29 01/01/17 08:48 White Blood Count 9.60 K/uL (4.8-10.8) Red Blood Count 3.48 M/uL (4.2-5.4) Hemoglobin 10.8 g/dL (12.0-16.0) Hematocrit 34.3 % (37-47) Mean Corpuscular Volume 98.6 fL (80-100) Mean Corpuscular Hemoglobin 31.0 pg (25-34) Mean Corpuscular Hemoglobin Concent 31.5 g/dl (32-36) Platelet Count 120 K/uL (130-400) Mean Platelet Volume 9.8 fL (7.4-10.4) Neutrophils (%) (Auto) 66.1 % Lymphocytes (%) (Auto) 21.5 % Monocytes (%) (Auto) 6.0 % Eosinophils (%) (Auto) 3.9 % Basophils (%) (Auto) 0.4 % Neutrophils # (Auto) 6.35 K/uL (1.4-6.5) Lymphocytes # (Auto) 2.06 K/uL (1.2-3.4) Monocytes # (Auto) 0.58 K/uL (0.11-0.59) Eosinophils # (Auto) 0.37 K/uL (0-0.5) Basophils # (Auto) 0.04 K/uL (0-0.2) RDW Standard Deviation 59.2 fL (36.4-46.3) RDW Coefficient of Variation 16.4 % (11.5-14.5) Immature Granulocyte % (Auto) 2.1 % Immature Granulocyte # (Auto) 0.20 K/uL (0.00-0.02) Anion Gap 7.0 mmol/L (3-11) Est Creatinine Clear Calc Drug Dose 11.4 ml/min Estimated GFR () 13.3 Estimated GFR (Non- 11.4 BUN/Creatinine Ratio 11.4 (10-20) Calcium Level 8.8 mg/dl (8.5-10.1) Magnesium Level 2.2 mg/dl (1.8-2.4) Total Bilirubin 0.3 mg/dl (0.2-1) Direct Bilirubin 0.1 mg/dl (0-0.2) Aspartate Amino Transf (AST/SGOT) 15 U/L (15-37) Alanine Aminotransferase (ALT/SGPT) 20 U/L (12-78) Alkaline Phosphatase 84 U/L (45-117) Total Creatine Kinase 29 U/L (26-192) Creatine Kinase MB 0.7 ng/ml (0.5-3.6) Creatine Kinase MB Ratio 2.4 (0-3.0) Total Protein 6.5 gm/dl (6.4-8.2) Albumin 3.0 gm/dl (3.4-5.0) Bedside Troponin I < 0.030 ng/ml (0-0.045) Urine Color YELLOW Urine Appearance TURBID (CLEAR) Urine pH 6.0 (4.5-7.5) Urine Specific Raymond 1.014 (1.000-1.030) Urine Protein 2+ (NEG) Urine Glucose (UA) NEG (NEG) Urine Ketones NEG (NEG) Urine Occult Blood 2+ (NEG) Urine Nitrite NEG (NEG) Urine Bilirubin NEG (NEG) Urine Urobilinogen NEG (NEG) Urine Leukocyte Esterase LARGE (NEG) Urine WBC (Auto) >30 /hpf (0-5) Urine RBC (Auto) 10-30 /hpf (0-4) Urine Hyaline Casts (Auto) 5-10 /lpf (0-5) Urine Epithelial Cells (Auto) >30 /lpf (0-5) Urine Bacteria (Auto) NEG (NEG) Urine Yeast (Auto) (NONE PRSENT) Laboratory results per my review. Medications Administered Medications (Trade) Dose Ordered Sig/Helder Route Start Time Stop Time Status Last Admin Dose Admin Sodium Chloride 1,000 ml @ 125 mls/hr Q8H STAT IV 01/01/17 08:18 01/01/17 12:30 DC 01/01/17 08:25 125 MLS/HR Alteplase, Recombinant (Activase Cathflo) 2 mg ONE ONCE IV 01/01/17 09:30 01/01/17 09:31 DC 01/01/17 10:05 2 MG Ceftriaxone Sodium (Rocephin Inj) 1 gm NOW STAT IV 01/01/17 10:05 01/01/17 10:07 DC 01/01/17 11:41 1 GM ECG Indication: weakness Rate (beats per minute): 81 Rhythm: normal sinus Findings: left axis deviation, other (previous anterior infarct, anterolateral T wave abnormality, LVH) ED Course 0753: Past medical records reviewed. The patient was evaluated in room A2. A complete history and physical examination was performed. 0818: Sodium Chloride 1,000 ml @ 125 mls/hr IV. 0930: Activase Cathflo 2 mg IV, 1005: Rocephin Inj 1 gm IV. 1032: I reviewed the patient's case with Dr. Tam - [facility]. She will evaluate the patient for further management. 1045: Upon reevaluation, the patient is resting comfortably. I discussed laboratory and radiographic results with the patient's . He verbalized agreement of the treatment plan. I spoke with Dr. Tam of the [facility] Hospitalist Service. The patient will be evaluated for further management and care. Medical Decision The patient is a 81 year old female who presents to the ED with complaints of worsening weakness. Differentials include metabolic, infection, hypo/ hyperglycemia, electrolyte abnormalities, cardiac sources, intracerebral event, toxicologic, neurologic, as well as others were entertained. Medication Reconciliation: I attest that I have personally reviewed the patient' s current medication list. Blood Pressure Screening: Patient was found to have an elevated blood pressure and was referred to their primary doctor for recheck and further treatment. This patient has been evaluated and appeared to be in no significant distress. IV access was obtained and laboratory work was drawn. 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 IV hydration was initiated. Patient's laboratory work reveals no significant abnormalities. Urine is positive for infection. Patient was given 1 g of IV ceftriaxone. Due to her falls and inability to assist with her care, she will be evaluated by the hospitalist service for further management. Patient has been were made aware of the plan and agree. Consults Time Called: 1029 Consulting Physician: Dr. Anel LOPEZ Returned Call: [phone] I reviewed the patient's case with Dr. Anel LOPEZ. She will evaluate the patient for further management. Impression Primary Impression: UTI (urinary tract infection) Additional Impressions: Weakness Fall Scribe Attestation The scribe's documentation has been prepared under my direction and personally reviewed by me in its entirety. I confirm that the note above accurately reflects all work, treatment, procedures, and medical decision making performed by me. Departure Information Dispostion Being Evaluated By Hospitalist Referrals Jan Cervantes M.D. (PCP) Problem Qualifiers
[2017-01-01] MEDS ORDERED: CRAN1TAB PO (08:07)
[2017-01-01] MEDS ORDERED: COCO1OIL2 PO (08:07)
[2017-01-01] MEDS ORDERED: SODIUM CHLORIDE 0.9% 1000ML 1,000 ML IV STA (08:18)
[2017-01-01 08:37] LABS: BASO % 0.4 %; BASO ABS # 0.04 K/uL (0-0.2); COMPLETE YES; EOS % 3.9 %; HEMATOCRIT 34.3 % (37-47); IG% 2.1 %; LYMPH % 21.5 %; LYMPH ABS # 2.06 K/uL (1.2-3.4); MEAN CELL VOLUME 98.6 fL (80-100); MEAN CORPUSCULAR HGB CONC 31.5 g/dl (32-36); MEAN PLATELET VOLUME 9.8 fL (7.4-10.4); NEUT % 66.1 %; PLATELET COUNT 120 K/uL (130-400); RED BLOOD COUNT 3.48 M/uL (4.2-5.4)
[2017-01-01 08:56] LABS: BUN/CREATININE RATIO 11.4 (10-20); CALCIUM 8.8 mg/dl (8.5-10.1); CREATININE 3.5 mg/dl (0.60-1.20); MAGNESIUM 2.2 mg/dl (1.8-2.4); POTASSIUM 5.2 mmol/L (3.5-5.1)
[2017-01-01 09:01] LABS: URINE APPEARANCE TURBID (CLEAR); URINE BILIRUBIN NEG (NEG); URINE COLOR YELLOW; URINE EPITHELIAL CELL AUTO >30 /lpf (0-5); URINE NITRITE NEG (NEG); URINE SPECIFIC GRAVITY 1.014 (1.000-1.030); UROBILINOGEN NEG (NEG); ZZURINE CULT IF INDIC CATH YES
[2017-01-01 09:01] LABS: CKMB/CK RATIO 2.4 (0-3.0)
--- NOTE | 2017-01-01 09:01 | DIAGNOSTIC IMAGING REPORT ---
CHEST ONE VIEW PORTABLE HISTORY: 81 years Female acute weakness COMPARISON: Portable chest radiograph 12/02/2016 TECHNIQUE: Portable upright AP view of the chest FINDINGS: Cardiac silhouette is again mildly enlarged. Single lead left pectoral pacer/defibrillator is unchanged overlying the right ventricle. There is atherosclerosis and tortuosity of the thoracic aorta. Right-sided pelvic terminates in the right atrium. No pneumothorax, pleural effusion or focal airspace consolidation. There is chronic blunting of the costophrenic angles bilaterally suggesting areas of scarring or trace pleural effusions. Surgical clips are seen within the right upper abdomen. IMPRESSION: 1. No acute cardiopulmonary process. 2. Persistent blunting of the costophrenic angle suggests trace pleural effusions or pleural parenchymal scarring. The above report was generated using voice recognition software. It may contain grammatical, syntax or spelling errors. Electronically signed by: Dusty Gaviria M.D. 01/01/2017 9:00 AM Dictated Date/Time: 01/01/2017 8:58 AM
[2017-01-01 09:05] LABS: MANUAL MICROSCOPIC REQUIRED? NO; REVIEW REQ? YES
[2017-01-01] MEDS ORDERED: ALTEPLASE, RECOMBINANT 1 MG/ML 2 ML VIAL IV ONE (09:30)
[2017-01-01] MEDS ORDERED: CEFTRIAXONE SOD INJ 1 GM ADDVIAL IV STA (10:05)
[2017-01-01 10:40] VITALS: O2SAT 100; Ht 167.6 cm; Wt 70.6 kg
[2017-01-01] MEDS ORDERED: ONDANSETRON 4MG OD TAB PO PRN (11:45)
[2017-01-01] MEDS ORDERED: LORAZEPAM 0.5 MG TAB PO PRN (11:45)
[2017-01-01] MEDS ORDERED: ACETAMINOPHEN 325 MG TAB PO PRN (11:45)
[2017-01-01 12:14] VITALS: O2SAT 100
--- NOTE | 2017-01-01 12:22 | History and Physical ---
History & Physical Date & Time of Service: Jan 01, 2017 at 11:41 Chief Complaint: Weakness Primary Care Physician: Jan Cervantes M.D. History of Present Illness Source: patient, family Patient is an 81 y/o female, with PMHx of recurrent resistant UTI, CKD Stage V, Anemia of chronic disease, HTN, chronic systolic and diastolic CHF, ischemic CM w/ LVEF 35-40% with AICD in place, moderate MR, pulmonary HTN and moderate TR, CAD s/p 2011, chronic debilitation, h/o C. 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 Her reports he was helping her with her usual AM routine of transferring from bed to wheelchair with "catching" her morning stool incontinence. At that point her legs buckled and he caught her and helped lower her down. This is her usual presentation for UTIs as she has had many in the past. She is mostly bed bound at home and has had numerous hospital admissions for UTIs and BONNIE, C. diff in the past. She has actually been doing better with her renal function lately since having her ureteral stents removed in November 2016. reports no fevers at home as he takes her vitals every day. No alteration in her mentation , no other complaints, no worsening of her usual 2-3 formed BMs daily. 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 She is afebrile , has normal vitals, and no evidence of sepsis. She and her feels she is too weak to go home and will be admitted for overnight observation, given IV antibiotics for her UTI, have a PT/OT evaluation, and with probable return to home tomorrow with home Health. Apparently she had been receiving home PT until about 1 week ago when she did not like the therapist and asked him to not come back. 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 and then removal 11/2016 Urinary and fecal incontinence Interstitial cystitis Recurrent cystitis with [id number] Klebsiella Chronic respiratory failure PSH: Bilateral corneal transplant Cholecystectomy Appendectomy AICD placement Bilateral ureteral stent 07/02 and removal 11/2016 Family History Diabetes mellitus Other cardiovascular diseases Stroke Noncontributory Social History Smoking Status: Never Smoker Alcohol Use: none Drug Use: none Marital Status: Housing status: lives with significant other Occupational Status: retired Immunizations History of Influenza Vaccine: Yes Influenza Vaccine Date: Mar 17, 2010 History of Tetanus Vaccine?: No History of Pneumococcal: No Pneumococcal Date: Jun 06, 2011 History of Hepatitis B Vaccine: No Multi-Drug Resistant Organisms History of MDRO: Yes Type of MDRO: other Allergies Coded Allergies: Sulfa Antibiotics (Verified Allergy, Intermediate, BODY SWELLING,NAUSEA AND VOMITNG, 01/01/17) Penicillins (Verified Allergy, Unknown, Tolerates Primaxin, does NOT tolerate ZOSYN, 01/01/17) PER PCP RECORDS Home Medications Scheduled Aspirin (Aspirin), 81 MG PO QPM Atorvastatin (Lipitor), 80 MG PO QPM Carvedilol (Coreg), 12.5 MG PO QAM Cholecalciferol (Vitamin D3), 1 TAB PO DAILY Clopidogrel Bisulfate (Clopidogrel), 75 MG PO QPM Coconut Oil (Bulk) (Coconut Oil), 1 CAP PO HS Cranberry (Vaccinium Macrocarp (Cranberry), Unknown Dose PO QID Febuxostat (Uloric), 40 MG PO NOON Loteprednol Etabonate (Lotemax), 1 DROP OPB QAM Multiple Vitamins W/ Minerals (Centrum Silver Ultra Wome), 1 TAB PO QAM Nystatin (Nystop), 1 DOSE TOP BID Pantoprazole (Pantoprazole Sodium), 40 MG PO QAM Probiotic Product (Probiotic), 1 TAB PO QPM Sodium Bicarbonate (Sodium Bicarbonate), 1 TAB PO QAM Vancomycin Hcl (Vancomycin), 125 MG PO QAM Scheduled PRN Lorazepam (Ativan), 0.5 MG PO Q6H PRN for Anxiety Ondasetron Odt (Zofran Odt), 4 MG PO Q6H PRN for Nausea Review of Systems Constitutional: + weakness, No fever, No chills, No fatigue Eyes: No problem reported ENT: No problem reported Respiratory: No shortness of breath Cardiovascular: No chest pain Abdomen: No pain, No nausea, No vomiting, No diarrhea, No constipation Musculoskeletal: No problem reported Genitourinary - Female: + urinary incontinence Neurologic: No problem reported Psychiatric: No problem reported Endocrine: No problem reported Hematologic / Lymphatic: No problem reported Integumentary: No problem reported Allergic / Immunologic: + frequent infections Physical Exam Vital Signs Date Time Temp Pulse Resp B/P (MAP) Pulse Ox O2 Delivery O2 Flow Rate FiO2 01/01/17 11:04 77 16 136/70 100 01/01/17 10:40 100 Nasal Cannula 2.0 01/01/17 09:43 36.9 76 20 113/78 100 Nasal Cannula 2.0 01/01/17 07:50 85 01/01/17 07:45 37.0 86 18 136/76 98 Nasal Cannula 2.0 General Appearance: no apparent distress, + thin Head: normocephalic, atraumatic Eyes: normal inspection, PERRL, EOMI, sclerae normal ENT: hearing grossly normal, TMs normal (on right; Left TM not visualized due to cerumen impaction; Rt EAC normal), pharynx normal Neck: supple, no adenopathy, trachea midline Respiratory/Chest: no respiratory distress, no accessory muscle use, + crackles (at right base, otherwise clear) Cardiovascular: regular rate, rhythm, no edema, no gallop, no murmur, normal peripheral pulses Abdomen/GI: normal bowel sounds, non tender, soft, no organomegaly, no pulsatile mass Back: normal inspection Extremities/Musculoskelatal: no calf tenderness, normal capillary refill, no pedal edema, + pertinent finding (bilateral hammer toes 2nd toes) Neurologic/Psych: no motor/sensory deficits (except generally weakened throughout, required 2 person assist to sit forward in bed for lung auscultation ), alert, + depressed affect Skin: normal color, warm/dry, no rash, + pertinent finding (RUE PICC line in place without any surrounding erythema or drainge) Diagnostics Laboratory Results Results Past 24 Hours Test 01/01/17 08:24 01/01/17 08:29 01/01/17 08:48 Range/Units White Blood Count 9.60 4.8-10.8 K/uL Red Blood Count 3.48 4.2-5.4 M/uL Hemoglobin 10.8 12.0-16.0 g/dL Hematocrit 34.3 37-47 % Mean Corpuscular Volume 98.6 80-100 fL Mean Corpuscular Hemoglobin 31.0 25-34 pg Mean Corpuscular Hemoglobin Concent 31.5 32-36 g/dl Platelet Count 120 130-400 K/uL Mean Platelet Volume 9.8 7.4-10.4 fL Neutrophils (%) (Auto) 66.1 % Lymphocytes (%) (Auto) 21.5 % Monocytes (%) (Auto) 6.0 % Eosinophils (%) (Auto) 3.9 % Basophils (%) (Auto) 0.4 % Neutrophils # (Auto) 6.35 1.4-6.5 K/uL Lymphocytes # (Auto) 2.06 1.2-3.4 K/uL Monocytes # (Auto) 0.58 0.11-0.59 K/uL Eosinophils # (Auto) 0.37 0-0.5 K/uL Basophils # (Auto) 0.04 0-0.2 K/uL RDW Standard Deviation 59.2 36.4-46.3 fL RDW Coefficient of Variation 16.4 11.5-14.5 % Immature Granulocyte % (Auto) 2.1 % Immature Granulocyte # (Auto) 0.20 0.00-0.02 K/uL Sodium Level 145 136-145 mmol/L Potassium Level 5.2 3.5-5.1 mmol/L Chloride Level 117 98-107 mmol/L Carbon Dioxide Level 21 21-32 mmol/L Anion Gap 7.0 3-11 mmol/L Blood Urea Nitrogen 40 7-18 mg/dl Creatinine 3.50 0.60-1.20 mg/dl Est Creatinine Clear Calc Drug Dose 11.4 ml/min Estimated GFR () 13.3 Estimated GFR (Non- 11.4 BUN/Creatinine Ratio 11.4 10-20 Random Glucose 108 70-99 mg/dl Calcium Level 8.8 8.5-10.1 mg/dl Magnesium Level 2.2 1.8-2.4 mg/dl Total Bilirubin 0.3 0.2-1 mg/dl Direct Bilirubin 0.1 0-0.2 mg/dl Aspartate Amino Transf (AST/SGOT) 15 15-37 U/L Alanine Aminotransferase (ALT/SGPT) 20 12-78 U/L Alkaline Phosphatase 84 45-117 U/L Total Creatine Kinase 29 26-192 U/L Creatine Kinase MB 0.7 0.5-3.6 ng/ml Creatine Kinase MB Ratio 2.4 0-3.0 Total Protein 6.5 6.4-8.2 gm/dl Albumin 3.0 3.4-5.0 gm/dl Bedside Troponin I < 0.030 0-0.045 ng/ml Urine Color YELLOW Urine Appearance TURBID CLEAR Urine pH 6.0 4.5-7.5 Urine Specific Kake 1.014 1.000-1.030 Urine Protein 2+ NEG Urine Glucose (UA) NEG NEG Urine Ketones NEG NEG Urine Occult Blood 2+ NEG Urine Nitrite NEG NEG Urine Bilirubin NEG NEG Urine Urobilinogen NEG NEG Urine Leukocyte Esterase LARGE NEG Urine WBC (Auto) >30 0-5 /hpf Urine RBC (Auto) 10-30 0-4 /hpf Urine Hyaline Casts (Auto) 5-10 0-5 /lpf Urine Epithelial Cells (Auto) >30 0-5 /lpf Urine Bacteria (Auto) NEG NEG Urine Yeast (Auto) NONE PRSENT Microbiology Results 01/01/17 Urine Culture, Received Pending Diagnostic Radiology I personally reviewed the CXR image and agree except it is a PICC line in place on right side, AICD on left CHEST ONE VIEW PORTABLE HISTORY: 81 years Female acute weakness COMPARISON: Portable chest radiograph 12/02/2016 TECHNIQUE: Portable upright AP view of the chest FINDINGS: Cardiac silhouette is again mildly enlarged. Single lead left pectoral pacer/defibrillator is unchanged overlying the right ventricle. There is atherosclerosis and tortuosity of the thoracic aorta. Right-sided pelvic terminates in the right atrium. No pneumothorax, pleural effusion or focal airspace consolidation. There is chronic blunting of the costophrenic angles bilaterally suggesting areas of scarring or trace pleural effusions. Surgical clips are seen within the right upper abdomen. IMPRESSION: 1. No acute cardiopulmonary process. 2. Persistent blunting of the costophrenic angle suggests trace pleural effusions or pleural parenchymal scarring. EKG NSR, left axis deviation, chronic T wave changes lateral leads Impression Assessment and Plan Patient is an 81 y/o female, with PMHx of recurrent resistant UTI, CKD Stage V, Anemia of chronic disease, HTN, chronic systolic and diastolic CHF, ischemic CM w/ LVEF 35-40% with AICD in place, moderate MR, pulmonary HTN and moderate TR, CAD s/p [place] 2011, chronic debilitation, h/o C. 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 Her reports he was helping her with her usual AM routine of transferring from bed to wheelchair with "catching" her morning stool incontinence. At that point her legs buckled and he caught her and helped lower her down. This is her usual presentation for UTIs as she has had many in the past. She is mostly bed bound at home and has had numerous hospital admissions for UTIs and BONNIE, C. diff in the past. She has actually been doing better with her renal function lately since having her ureteral stents removed in November 2016. reports no fevers at home as he takes her vitals every day. No alteration in her mentation , no other complaints, no worsening of her usual 2-3 formed BMs daily. 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 She is afebrile , has normal vitals, and no evidence of sepsis. She and her feels she is too weak to go home and will be admitted for overnight observation, given IV antibiotics for her UTI, have a PT/OT evaluation, and with probable return to home tomorrow with home Health. Apparently she had been receiving home PT until about 1 week ago when she did not like the therapist and asked him to not come back. UTI- abnormal UA with symptoms of bilateral leg weakness, no evidence of sepsis. Last two UTIs have been sensitive to Rocephin unlike previous Klebsiella infections prior to that. 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 Followed routinely as outpt with Nephrology. Renal function has improved since removal of her bilateral ureteral stents 11/2016. Has a h/o metabolic acidosis, currently HCO3 21 -renally dose all meds -avoid nephrotoxins -low K+ diet -continue home NaHCO3 tabs -if worsens, consult her Warehouse Representative -follow PRP in AM Anemia of chronic disease-hgb improved here at 10.8 -follow CBC periodically HTN/chronic systolic and diastolic CHF/ischemic CM w/ LVEF 35-40% with AICD in place (previous EF 25%)/moderate MR/pulmonary HTN/moderate TR/CAD s/p [place] 2011/ hyperlipidemia- all stable and no evidence of volume overload on exam -continue home Coreg (once daily), ASA, Plavix, atorvastatin -follows routinely with Cardiology as an outpatient Chronic debilitation-worsened by numerous hospitalizations. tales meticulous care of her at home, always declines rehab or SNF. H/o C. diff diarrhea now on chronic suppressive tx-no current evidence of C. diff -continue po Vanco 125mg daily as prophylactic dose Proph-Heparin SQ, SCDs PPI Dispo-FULL CODE as discussed with pt PT/OT eval and requesting home PT/OT, never wants SNF Level of Care Med/Surg Advanced Directives Existing Living Will: Yes Existing Power of Resistor Tester: Yes Resuscitation Status FULL RESUSCITATION VTE Prophylaxis VTE Risk Assessment Done? Y/N: Yes Risk Level: Moderate Given or contraindicated: Unfractionated heparin SQ Social Service Consult Receiving Home Health Additional Copies To Thai Corral M.D.; Jan Cervantes M.D.
[2017-01-01 12:37] VITALS: BP 154/94; PULSE 76; TEMP 36.7; O2SAT 100
[2017-01-01] MEDS ORDERED: CARBAMIDE PEROXIDE 6.5% 15 ML BTL OT ONE (13:00)
[2017-01-01] MEDS ORDERED: VANCOMYCIN HCL 125 MG/2.5ML SOLN PO ONE (13:30)
[2017-01-01] MEDS ORDERED: RASPBERRY SYRUP 5 ML UDP PO ONE (13:30)
[2017-01-01] MEDS ORDERED: IV FLUIDS COMPLETED PRN (14:00)
[2017-01-01] MEDS: FEBUXOSTAT 40 MG TAB PO SCH (14:06)
[2017-01-01] MEDS: LOTEMAX~ORDER AWAITING ACTION SCH ×2 (15:01→23:49)
[2017-01-01 15:13] VITALS: BP 118/70; PULSE 82; TEMP 36.5; O2SAT 100
[2017-01-01] MEDS: ATORVASTATIN 40 MG TAB PO SCH (20:46)
[2017-01-01] MEDS: CLOPIDOGREL BISULFATE 75 MG TAB PO SCH (20:46)
[2017-01-01] MEDS: ASPIRIN 81 MG ECTAB PO SCH (20:46)
[2017-01-01] MEDS: LACTOBACILLUS ACIDOPHILUS (FLORANEX) TAB PO SCH (20:47)
[2017-01-01] MEDS: NYSTATIN POWDER 15GM BTL EXT SCH (20:48)
[2017-01-01] MEDS: HEPARIN SOD 5000 UNIT/0.5 ML CARP SQ SCH (20:51)
[2017-01-02 00:29] VITALS: BP 124/74; PULSE 87; TEMP 36.9; O2SAT 98
[2017-01-02 06:18] LABS: BASO % 0.3 %; BASO ABS # 0.03 K/uL (0-0.2); COMPLETE YES; EOS % 5.2 %; HEMATOCRIT 30.7 % (37-47); IG% 1.7 %; LYMPH % 23.9 %; LYMPH ABS # 2.28 K/uL (1.2-3.4); MEAN CELL VOLUME 99.4 fL (80-100); MEAN CORPUSCULAR HEMOGLOBIN 31.7 pg (25-34); MEAN CORPUSCULAR HGB CONC 31.9 g/dl (32-36); MEAN PLATELET VOLUME 9.9 fL (7.4-10.4); MONO % 5.7 %; NEUT % 63.2 %; PLATELET COUNT 103 K/uL (130-400); RED BLOOD COUNT 3.09 M/uL (4.2-5.4); WHITE BLOOD COUNT 9.55 K/uL (4.8-10.8)
[2017-01-02 06:53] LABS: BUN/CREATININE RATIO 13.5 (10-20); CALCIUM 8.9 mg/dl (8.5-10.1); CREATININE 3.4 mg/dl (0.60-1.20); POTASSIUM 5.3 mmol/L (3.5-5.1)
[2017-01-02 07:35] VITALS: BP 132/76; PULSE 78; TEMP 36.7; O2SAT 99
[2017-01-02] MEDS: HEPARIN SOD 5000 UNIT/0.5 ML CARP SQ SCH ×2 (07:46→20:46)
[2017-01-02] MEDS: LOTEMAX~ORDER AWAITING ACTION SCH ×2 (07:46→15:36)
[2017-01-02] MEDS: CARBAMIDE PEROXIDE 6.5% 15 ML BTL OT SCH (07:47)
[2017-01-02] MEDS: NYSTATIN POWDER 15GM BTL EXT SCH ×2 (07:47→20:46)
[2017-01-02] MEDS: SODIUM BICARBONATE 650 MG TAB PO SCH (07:49)
[2017-01-02] MEDS: PANTOprazole SOD 40 MG TAB PO SCH (07:49)
[2017-01-02] MEDS: RASPBERRY SYRUP 5 ML UDP PO SCH (07:50)
[2017-01-02] MEDS: CARVEDILOL 12.5 MG TAB PO SCH (07:50)
[2017-01-02] MEDS: CEROVITE ADV FORMULA TAB PO SCH (07:51)
[2017-01-02] MEDS: CHOLECALCIFEROL 1000 INTER.UNIT TAB PO SCH (07:51)
[2017-01-02] MEDS: VANCOMYCIN HCL 125 MG/2.5ML SOLN PO SCH (07:51)
--- NOTE | 2017-01-02 09:18 | Progress Note ---
Subjective Date of Service: Jan 02, 2017. Subjective Pt evaluation today including: conversation w/ patient, conversation w/ family , physical exam, chart review, lab review, review of studies, review of inpatient medication list Report feeling better, conversational, answer questions, eating food, no other complaint, denied fever and chill, in bedside Problem List Medical Problems: (1) Acute kidney failure Status: Acute (2) Acute on chronic kidney failure Status: Acute (3) Acute renal failure Status: Acute (4) Altered mental status Status: Acute (5) Altered mental status Status: Acute (6) ARF (acute renal failure) Status: Acute (7) CRD (chronic renal disease) Status: Acute (8) Dehydration Status: Acute (9) Dehydration Status: Acute (10) Diverticulitis Status: Acute (11) Fall Status: Acute (12) Fever Status: Acute (13) Hyperkalemia Status: Acute (14) Hyperkalemia Status: Acute (15) Hyperkalemia Status: Acute (16) Hypomagnesemia Status: Acute (17) PICC (peripherally inserted central catheter) in place Status: Acute (18) Pneumonia Status: Acute (19) Renal failure Status: Acute (20) Renal insufficiency Status: Acute (21) Renal insufficiency Status: Acute (22) Sepsis Status: Acute (23) Sepsis Status: Acute (24) Uremia Status: Acute (25) UTI (urinary tract infection) Status: Acute (26) UTI (urinary tract infection) Status: Acute (27) UTI (urinary tract infection) Status: Acute (28) Weakness Status: Acute (29) Weakness Status: Acute (30) Weakness Status: Acute (31) Weakness Status: Acute (32) Weakness Status: Acute Review of Systems Constitutional: + weakness, + fatigue, No fever, No chills Eyes: No see HPI, No worsening of vision, No eye pain, No redness, No discharge , No diplopia, No problem reported ENT: No see HPI, No hearing loss, No unusual epistaxis, No nasal symptoms, No sore throat, No tinnitus, No dental problems, No trouble swallowing, No problem reported Respiratory: No see HPI, No cough, No sputum, No wheezing, No dyspnea on exertion, No dyspnea at rest, No hemoptysis, No problem reported Cardiac: No see HPI, No chest pain, No orthopnea, No PND, No edema, No claudication, No palpitations, No problem reported Abdomen: No see HPI, No pain, No nausea, No vomiting, No diarrhea, No constipation, No GI bleeding, No problem reported Musculoskeletal: No see HPI, No joint pain, No muscle pain, No swelling, No calf pain, No problem reported Female : No see HPI, No dysuria, No urinary frequency, No hematuria, No incontinence, No abnormal vaginal bleeding, No vaginal discharge, No problem reported Skin: No see HPI, No rash, No itch, No new/changing skin lesions, No color change, No bleeding, No problem reported Objective Vital Signs Date Time Temp Pulse Resp B/P (MAP) Pulse Ox O2 Delivery O2 Flow Rate FiO2 01/02/17 08:00 Nasal Cannula 2.0 01/02/17 07:35 36.7 78 18 132/76 (94) 99 Room Air 01/02/17 00:29 36.9 87 18 124/74 (91) 98 2.0 01/02/17 00:00 Nasal Cannula 2.0 01/01/17 20:00 Nasal Cannula 2.0 01/01/17 16:15 Nasal Cannula 2.0 01/01/17 15:13 36.5 82 18 118/70 (86) 100 Nasal Cannula 2.0 01/01/17 12:37 36.7 76 16 154/94 (114) 100 Nasal Cannula 2.0 01/01/17 12:14 80 22 141/74 100 01/01/17 11:04 77 16 136/70 100 01/01/17 10:40 100 Nasal Cannula 2.0 01/01/17 09:43 36.9 76 20 113/78 100 Nasal Cannula 2.0 Physical Exam General Appearance: WD/WN, no apparent distress, + pertinent finding (awake and alert) Eyes: normal inspection, PERRL, EOMI, sclerae normal ENT: normal ENT inspection, hearing grossly normal, pharynx normal Neck: supple, no adenopathy, thyroid normal, no JVD, no carotid bruits, trachea midline Respiratory/Chest: chest non-tender, normal breath sounds, no respiratory distress, no accessory muscle use, + decreased breath sounds Cardiovascular: regular rate, rhythm, no edema, no gallop, no JVD, no murmur Abdomen: normal bowel sounds, non tender, soft, no organomegaly, no pulsatile mass Extremities: normal range of motion, non-tender, normal inspection, no pedal edema, no calf tenderness, normal capillary refill, pelvis stable Neurologic/Psychiatric: statistical reporting analyst II-XII nml as tested, no motor/sensory deficits, alert, normal mood/affect Skin: normal color, warm/dry, no rash Lymphatic: no adenopathy Laboratory Results Last 24 Hours Test 01/02/17 06:00 White Blood Count 9.55 K/uL Red Blood Count 3.09 M/uL Hemoglobin 9.8 g/dL Hematocrit 30.7 % Mean Corpuscular Volume 99.4 fL Mean Corpuscular Hemoglobin 31.7 pg Mean Corpuscular Hemoglobin Concent 31.9 g/dl Platelet Count 103 K/uL Mean Platelet Volume 9.9 fL Neutrophils (%) (Auto) 63.2 % Lymphocytes (%) (Auto) 23.9 % Monocytes (%) (Auto) 5.7 % Eosinophils (%) (Auto) 5.2 % Basophils (%) (Auto) 0.3 % Neutrophils # (Auto) 6.04 K/uL Lymphocytes # (Auto) 2.28 K/uL Monocytes # (Auto) 0.54 K/uL Eosinophils # (Auto) 0.50 K/uL Basophils # (Auto) 0.03 K/uL RDW Standard Deviation 60.4 fL RDW Coefficient of Variation 16.5 % Immature Granulocyte % (Auto) 1.7 % Immature Granulocyte # (Auto) 0.16 K/uL Sodium Level 145 mmol/L Potassium Level 5.3 mmol/L Chloride Level 118 mmol/L Carbon Dioxide Level 24 mmol/L Anion Gap 3.0 mmol/L Blood Urea Nitrogen 46 mg/dl Creatinine 3.40 mg/dl Est Creatinine Clear Calc Drug Dose 11.7 ml/min Estimated GFR () 13.7 Estimated GFR (Non- 11.9 BUN/Creatinine Ratio 13.5 Random Glucose 99 mg/dl Calcium Level 8.9 mg/dl Magnesium Level 2.0 mg/dl Assessment and Plan 81 y/o female, admitted on 01/01/2017 from the ER because of bilateral leg weakness that started the morning of admission. 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 Per report She and her feels she is too weak to go home and will be admitted for overnight observation, given IV antibiotics for her UTI, have a PT/ OT evaluation had been receiving home PT until about 1 week ago when she did not like the therapist and asked him to not come back. UTI- abnormal UA with symptoms of bilateral leg weakness, no evidence of sepsis. Last two UTIs have been sensitive to Rocephin unlike previous Klebsiella infections prior to that. 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 Followed routinely as outpt with Nephrology. Renal function has improved since removal of her bilateral ureteral stents 11/2016. Has a h/o metabolic acidosis, currently HCO3 21 Continue renally dose all meds Continue avoid nephrotoxins -low K+ diet -continue home NaHCO3 tabs Anemia of chronic stable HTN/chronic systolic and diastolic CHF/ischemic CM w/ LVEF 35-40% with AICD in place (previous EF 25%)/moderate MR/pulmonary HTN/moderate TR/CAD s/p [place] 2011/ hyperlipidemia- all stable and no evidence of volume overload on exam Stable continue current medication Chronic debilitation-worsened by numerous hospitalizations, always declines rehab or SNF. H/o C. diff diarrhea now on chronic suppressive tx-no current evidence of C. diff -continue po Vanco 125mg daily as prophylactic dose Proph-Heparin SQ, SCDs PPI Dispo-FULL CODE PT/OT eval and requesting home PT/OT, never wants SNF Possible discharge tomorrow Discharge planning: home with home health
[2017-01-02] MEDS: FEBUXOSTAT 40 MG TAB PO SCH (11:17)
[2017-01-02] MEDS ORDERED: CEFTRIAXONE SOD INJ 1 GM in DEXTROSE 5% ADD-VANTAGE 50ML 50 ML IV SCH (12:00)
[2017-01-02 15:22] VITALS: BP 121/72; PULSE 82; TEMP 36.7; O2SAT 99
[2017-01-02] MEDS: ASPIRIN 81 MG ECTAB PO SCH (20:46)
[2017-01-02] MEDS: CLOPIDOGREL BISULFATE 75 MG TAB PO SCH (20:47)
[2017-01-02] MEDS: ATORVASTATIN 40 MG TAB PO SCH (20:47)
[2017-01-02] MEDS: LACTOBACILLUS ACIDOPHILUS (FLORANEX) TAB PO SCH (20:47)
[2017-01-02 23:48] VITALS: BP 123/70; PULSE 86; TEMP 36.6; O2SAT 99
[2017-01-03 06:20] LABS: BUN/CREATININE RATIO 15.5 (10-20); CALCIUM 8.3 mg/dl (8.5-10.1); CREATININE 3.3 mg/dl (0.60-1.20); MAGNESIUM 1.9 mg/dl (1.8-2.4); POTASSIUM 5.2 mmol/L (3.5-5.1)
[2017-01-03 07:31] VITALS: BP 136/78; PULSE 82; TEMP 36.8; O2SAT 99
[2017-01-03] MEDS: CEROVITE ADV FORMULA TAB PO SCH (08:13)
[2017-01-03] MEDS: PANTOprazole SOD 40 MG TAB PO SCH (08:13)
[2017-01-03] MEDS: CARBAMIDE PEROXIDE 6.5% 15 ML BTL OT SCH (08:13)
[2017-01-03] MEDS: CHOLECALCIFEROL 1000 INTER.UNIT TAB PO SCH (08:14)
[2017-01-03] MEDS: LOTEMAX~ORDER AWAITING ACTION SCH ×2 (08:14)
[2017-01-03] MEDS: CARVEDILOL 12.5 MG TAB PO SCH (08:14)
--- NOTE | 2017-01-03 08:14 | Discharge Instructions ---
Discharge Instructions Date of Service Jan 03, 2017. Admission Reason for Admission: Generalized Weakness, Uti Discharge Discharge Diagnosis / Problem: generalized weakness, no UTI Discharge Goals Goal(s): Decrease discomfort, Improve function, Increase independence, Improve disease control, Improve nutritional status, Learn about illness, Diagnostic testing, Therapeutic intervention, Prevent Disease Progression, Specific goals Activity Recommendations Activity Limitations: resume your previous activity . Instructions / Follow-Up Instructions / Follow-Up you was admitted on 01/01/2017 because of bilateral leg weakness that started the morning of admission. urine study showed UTI, was given IV antibiotics for her UTI, but final urine culture has no growth, therefore has no UTI, will not give antibiotic to home your other medical conditions are stable, your home medicine will not be changed - you need to follow up with your primary care physician in 1 week, - take medication as instructed, never overdose or any misuse, or take with alcohol, because misuse of medicine may cause organ damage or , call your primary care physician if have questions of medicaitons. - call your primary care physician OR go to local emergency room if has any fever/chill, chest pain, shortness of breathing, nausea/vomiting/abdominal pain , facial droop/slurry speech/local weakness, or if has any questions. - fall precaution - diet as instructed - you need to follow up with your subspecialist - you should understand that it is important to follow up the above instruction , and "not following the above instruction" may cause delayed or missed care of your medical conditions which may cause permanent organ damage and even . Current Hospital Diet Patient's current hospital diet: Renal Diet, Low Potassium Diet (2g K) Discharge Diet Recommended Diet: Low Sodium Diet (2gm Na) Pending Studies Studies pending at discharge: no Laboratory Results Meds Administered (Past 24Hrs) Medications (Trade) Dose Ordered Sig/Helder Route Start Time Stop Time Status Last Admin Dose Admin Alteplase, Recombinant (Activase Cathflo) 2 mg ONE ONCE IV 01/01/17 09:30 01/01/17 09:31 DC 01/01/17 10:05 2 MG Ceftriaxone Sodium (Rocephin Inj) 1 gm NOW STAT IV 01/01/17 10:05 01/01/17 10:07 DC 01/01/17 11:41 1 GM Aspirin (Ecotrin Tab) 81 mg QPM PO 01/01/17 21:00 01/31/17 20:59 01/02/17 20:46 81 MG Atorvastatin Calcium (Lipitor Tab) 80 mg QPM PO 01/01/17 21:00 01/31/17 20:59 01/02/17 20:47 80 MG Carvedilol (Coreg Tab) 12.5 mg QAM PO 01/02/17 08:00 02/01/17 08:59 01/03/17 08:14 12.5 MG Cholecalciferol (Vitamin D Tab) 1,000 inter.unit DAILY PO 01/02/17 08:00 02/01/17 08:59 01/03/17 08:14 1,000 INTER.UNIT Clopidogrel Bisulfate (plAVix TAB) 75 mg QPM PO 01/01/17 21:00 01/31/17 20:59 01/02/17 20:47 75 MG Multivitamins/ Minerals (Multivitamin W/ Minerals Tab) 1 tab QAM PO 01/02/17 08:00 02/01/17 08:59 01/03/17 08:13 1 TAB Nystatin (Mycostatin Powder) 1 appln BID EXT 01/01/17 20:00 01/31/17 20:59 01/03/17 08:19 1 APPLN Pantoprazole Sodium (Protonix Tab) 40 mg QAM PO 01/02/17 08:00 02/01/17 08:59 01/03/17 08:13 40 MG Sodium Bicarbonate (Sodium Bicarbonate Tab) 650 mg QAM PO 01/02/17 08:00 02/01/17 08:59 01/03/17 08:15 650 MG Vancomycin HCl (Vancomycin Oral Soln) 125 mg QAM PO 01/02/17 08:00 02/01/17 08:59 01/03/17 08:18 125 MG Febuxostat (Uloric) 40 mg DAILY@1200 PO 01/01/17 13:00 01/31/17 12:59 01/02/17 11:17 40 MG Miscellaneous Information (Order Awaiting Action) 1 ea QS N/A 01/01/17 16:00 01/31/17 15:59 01/03/17 08:14 1 EA Lactobacillus Acidophilus (Floranex Tab) 4 tab QPM PO 01/01/17 21:00 01/31/17 20:59 01/02/17 20:47 4 TAB Carbamide Peroxide (Earwax Removal Soln) 3 drops DAILY OT 01/02/17 08:00 01/06/17 08:59 01/03/17 08:13 3 DROPS Carbamide Peroxide (Earwax Removal Soln) 3 drops 1300 ONCE OT 01/01/17 13:00 01/01/17 13:01 DC 01/01/17 14:07 3 DROPS Ceftriaxone Sodium 1 gm/ Dextrose 50 ml @ 100 mls/hr Q24H IV 01/02/17 12:00 01/06/17 11:59 01/02/17 11:17 100 MLS/HR Raspberry (Raspberry Syrup 5ml Cup) 5 ml QAM PO 01/02/17 08:00 01/16/17 07:59 01/03/17 08:18 5 ML Heparin Sodium (Porcine) (Heparin 10 Unit/ ml 5 ml Flush) 5 ml PRN PRN FLUSH 01/02/17 01:15 02/01/17 01:14 01/03/17 05:40 5 ML Medical Emergencies . Who to Call and When: Medical Emergencies: If at any time you feel your situation is an emergency, please call 911 immediately. . Non-Emergent Contact Non-Emergency issues call your: Primary Care Provider . . "Provider Documentation" section prepared by Michael Cortez. . VTE Core Measure Inpt VTE Proph given/why not?: Unfractionated heparin SQ
[2017-01-03] MEDS: SODIUM BICARBONATE 650 MG TAB PO SCH (08:15)
[2017-01-03] MEDS: RASPBERRY SYRUP 5 ML UDP PO SCH (08:18)
[2017-01-03] MEDS: VANCOMYCIN HCL 125 MG/2.5ML SOLN PO SCH (08:18)
[2017-01-03] MEDS: NYSTATIN POWDER 15GM BTL EXT SCH (08:19)
[2017-01-03] MEDS: HEPARIN SOD 5000 UNIT/0.5 ML CARP SQ SCH (08:20)
--- NOTE | 2017-01-03 09:25 | Discharge Summary ---
Discharge Summary Date of Service Jan 03, 2017. Discharge Summary Admission Date: Jan 01, 2017 at 11:40 Discharge Date: Jan 03, 2017 Discharge Disposition: Home with services Principal Diagnosis: bilateral leg weakness, no UTI Problems/Secondary Diagnoses: final urine culture has no growth, therefore has no UTI, Immunizations: Have You Had Influenza Vaccine: Yes Influenza Vaccine Date: Mar 17, 2010 History of Tetanus Vaccine?: No History of Pneumococcal: No Pneumococcal Date: Jun 06, 2011 History of Hepatitis B Vaccine: No Procedures: no Consultations: no Medication Reconciliation Continued Medications: Aspirin (Aspirin) 81 Mg Tab 81 MG PO QPM Atorvastatin (Lipitor) 80 Mg Tab 80 MG PO QPM Carvedilol (Coreg) 12.5 Mg Tab 12.5 MG PO QAM, TAB Cholecalciferol (Vitamin D3) 1,000 Unit Tab 1 TAB PO DAILY for 90 Days, #90 TAB 3 Refills Clopidogrel Bisulfate (Clopidogrel) 75 Mg Tab 75 MG PO QPM Coconut Oil (Bulk) (Coconut Oil) 1 Oil Oil 1 CAP PO HS Cranberry (Vaccinium Macrocarp (Cranberry) 125 Mg Tab Unknown Dose PO QID Febuxostat (Uloric) 40 Mg Tab 40 MG PO NOON TAKE THIS MEDICATION DAILY WITH LUNCH Lorazepam (Ativan) 0.5 Mg Tab 0.5 MG PO Q6H PRN for Anxiety, TAB Loteprednol Etabonate (Lotemax) 0.5 % Gel 1 DROP OPB QAM Multiple Vitamins W/ Minerals (Centrum Silver Ultra Wome) 1 Tab Tab 1 TAB PO QAM Nystatin (Nystop) 45 Appln/15 Gm Powd 1 DOSE TOP BID Ondasetron Odt (Zofran Odt) 4 Mg Tab 4 MG PO Q6H PRN for Nausea Pantoprazole (Pantoprazole Sodium) 40 Mg Tab 40 MG PO QAM Probiotic Product (Probiotic) 1 Cap Cap 1 TAB PO QPM Sodium Bicarbonate (Sodium Bicarbonate) 650 Mg Tab 1 TAB PO QAM Vancomycin Hcl (Vancomycin) 125 Mg Cap 125 MG PO QAM Discharge Exam Continue doing okay, no more lower extremity weakness bilaterally, eating, drinking, and bowel movement were normal, Was awake and alert and watching TV, Review of Systems: Constitutional: No fever, No chills, No sweats, No weight loss, No weakness , No fatigue, No problem reported ENT: No hearing loss, No unusual epistaxis, No nasal symptoms, No sore throat, No tinnitus, No dental problems, No trouble swallowing, No problem reported Respiratory: No cough, No sputum, No wheezing, No shortness of breath, No dyspnea on exertion, No dyspnea at rest, No hemoptysis, No problem reported Cardiovascular: No chest pain, No orthopnea, No PND, No edema, No claudication, No palpitations, No problem reported Abdomen: No pain, No nausea, No vomiting, No diarrhea, No constipation, No GI bleeding, No problem reported Musculoskeletal: No joint pain, No muscle pain, No swelling, No calf pain, No problem reported Genitourinary - Female: No dysuria, No urinary frequency, No urinary urgency , No urinary incontinence, No urinary retention, No hematuria, No dysmenorrhea, No menorrhagia, No metrorrhagia, No rash, No vaginal bleeding, No vaginal discharge, No vaginal itching, No vulvodynia, No , No problem reported Neurologic: No memory loss, No paralysis, No weakness, No numbness/tingling , No vertigo, No balance problems, No problem reported Psychiatric: No depression symptoms, No anhedonism, No anxiety, No insomnia , No substance abuse, No problem reported Endocrine: No fatigue, No excessive thirst, No excessive urination, No problem reported Integumentary: No rash, No itch, No new/changing skin lesions, No color change, No bleeding, No problem reported Physical Exam: General Appearance: WD/WN, no apparent distress, + obese Eyes: normal inspection ENT: normal ENT inspection, hearing grossly normal Neck: supple, no adenopathy Respiratory/Chest: chest non-tender, no respiratory distress, no accessory muscle use, + decreased breath sounds, + pertinent finding (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 Per report She and her feels she is too weak to go home and will be admitted for overnight observation, given IV antibiotics for her UTI, have a PT/ OT evaluation had been receiving home PT until about 1 week ago when she did not like the therapist and asked him to not come back. UTI- abnormal UA with symptoms of bilateral leg weakness, no evidence of sepsis. Last two UTIs have been sensitive to Rocephin unlike previous Klebsiella infections prior to that. 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 stable Continue renally dose all meds Continue avoid nephrotoxins -low K+ diet -continue home NaHCO3 tabs Anemia of chronic stable HTN/chronic systolic and diastolic CHF/ischemic CM w/ LVEF 35-40% with AICD in place (previous EF 25%)/moderate MR/pulmonary HTN/moderate TR/CAD s/p [place] 2011/ hyperlipidemia- all stable and no evidence of volume overload on exam Stable continue current medication Chronic debilitation-worsened by numerous hospitalizations, always declines rehab or SNF. H/o C. diff diarrhea now on chronic suppressive tx-no current evidence of C. diff -continue po Vanco 125mg daily as prophylactic dose Proph-Heparin SQ, SCDs PPI Dispo-FULL CODE PT/OT eval and requesting home PT/OT, never wants SNF Discussed with patient and about the care and discharge plan, they agreed, answered all questions Discharge instruction you was admitted on 01/01/2017 because of bilateral leg weakness that started the morning of admission. urine study showed UTI, was given IV antibiotics for her UTI, but final urine culture has no growth, therefore has no UTI, will not give antibiotic to home your other medical conditions are stable, your home medicine will not be changed - you need to follow up with your primary care physician in 1 week, - take medication as instructed, never overdose or any misuse, or take with alcohol, because misuse of medicine may cause organ damage or , call your primary care physician if have questions of medicaitons. - call your primary care physician OR go to local emergency room if has any fever/chill, chest pain, shortness of breathing, nausea/vomiting/abdominal pain , facial droop/slurry speech/local weakness, or if has any questions. - fall precaution - diet as instructed - you need to follow up with your subspecialist - you should understand that it is important to follow up the above instruction , and "not following the above instruction" may cause delayed or missed care of your medical conditions which may cause permanent organ damage and even . Total Time Spent: Less than 30 minutes This includes examination of the patient, discharge planning, medication reconciliation, and communication with other providers. Discharge Instructions Please refer to the electronic Patient Visit Report (Discharge Instructions) for additional information. Additional Copies To Jan Cervantes M.D.
[2017-01-03 09:44] VITALS: BP 136/78; PULSE 82; TEMP 36.8; O2SAT 99
--- NOTE | 2017-01-11 07:35 | CODING QUERY MEDICAL NECESSITY ---
CQSUPPORTING DIAGNOSIS NEEDED A supporting diagnosis is required for the test/procedure performed on this patient in order for us to be reimbursed by the patient's insurance. Please provide a supporting diagnosis for the following test/procedure listed below next to the test name along with your signature. *If there is no additional diagnosis for this patient that would support the following test/procedure please document that below next to the test/procedure. Test(s)/Procedure(s) that require a supporting diagnosis: DOS 01/01/17 THROMBOLYTIC AGENTS Provider Signature: Date: Thank you Mary Martínez Health Information Management Once completed, please kindly fax back to [phone] For questions please call [phone]
--- NOTE | 2017-01-31 09:22 | EDITING REQUIRED CODING QUERY ---
CQSUPPORTING DIAGNOSIS NEEDED A supporting diagnosis is required for the test/procedure performed on this patient in order for us to be reimbursed by the patient's insurance. Please provide a supporting diagnosis for the following test/procedure listed below next to the test name along with your signature. *If there is no additional diagnosis for this patient that would support the following test/procedure please document that below next to the test/procedure. Test(s)/Procedure(s) that require a supporting diagnosis: DOS 01/01/17 THROMBOLYTIC AGENT Provider Signature: Date: I did not order the "THROMBOLYTIC AGENT" Thank you Mary Martínez Health Information Management Once completed, please kindly fax back to [phone] For questions please call [phone]
== END 2017-01-03 10:08 | disposition home health service (06) ==
LOC: EDBD 07:41 → C.EDA 07:42 → C.4E 11:40 → ENRESERV 11:59
PROVIDERS: ADMIT Family Medicine; ATTEND Hospitalist
DX: R53.1 Weakness (principal); I13.2 Hypertensive heart and chronic kidney disease with heart failure and with stage 5 chronic kidney disease, or end stage renal disease; N18.5 Chronic kidney disease, stage 5; I50.42 Chronic combined systolic (congestive) and diastolic (congestive) heart failure; D63.1 Anemia in chronic kidney disease; E87.5 Hyperkalemia; I25.5 Ischemic cardiomyopathy; J96.10 Chronic respiratory failure, unspecified whether with hypoxia or hypercapnia; E78.5 Hyperlipidemia, unspecified; I25.10 Atherosclerotic heart disease of native coronary artery without angina pectoris; I27.2 Other secondary pulmonary hypertension; E11.9 Type 2 diabetes mellitus without complications; I34.0 Nonrheumatic mitral (valve) insufficiency; I25.2 Old myocardial infarction; Z79.82 Long term (current) use of aspirin; Z87.440 Personal history of urinary (tract) infections; Z95.810 Presence of automatic (implantable) cardiac defibrillator; Z90.49 Acquired absence of other specified parts of digestive tract; Z87.01 Personal history of pneumonia (recurrent); Z83.3 Family history of diabetes mellitus; Z82.49 Family history of ischemic heart disease and other diseases of the circulatory system; Z82.3 Family history of stroke

== ENCOUNTER → 2017-01-29 | Outpatient (CLI) | payer MEDICARE ==
[~2017-01-29] MED LIST changes: +COCO1OIL2 PO; -CPR500 PO; +CRAN1TAB PO; -CRANBERRY PO
[2017-01-29 08:21] LABS: URINE APPEARANCE TURBID (CLEAR); URINE BILIRUBIN NEG (NEG); URINE COLOR YELLOW; URINE EPITHELIAL CELL AUTO 20-30 /lpf (0-5); URINE NITRITE NEG (NEG); URINE PH 6.5 (4.5-7.5); URINE SPECIFIC GRAVITY 1.016 (1.000-1.030); UROBILINOGEN NEG (NEG)
[2017-01-29 08:24] LABS: MANUAL MICROSCOPIC REQUIRED? NO; REVIEW REQ? NO
[2017-01-29 08:25] LABS: BLOOD UREA NITROGEN 44 mg/dl (7-18); BUN/CREATININE RATIO 13.4 (10-20); CALCIUM 8.7 mg/dl (8.5-10.1); CARBON DIOXIDE 24 mmol/L (21-32); CHLORIDE 114 mmol/L (98-107); GLUCOSE 100 mg/dl (70-99); PHOSPHORUS 3.8 mg/dl (2.5-4.9); SODIUM 145 mmol/L (136-145)
[2017-01-29 08:32] LABS: HEMATOCRIT 31.5 % (37-47); MEAN CELL VOLUME 98.7 fL (80-100); MEAN CORPUSCULAR HEMOGLOBIN 31.7 pg (25-34); MEAN CORPUSCULAR HGB CONC 32.1 g/dl (32-36); MEAN PLATELET VOLUME 9.6 fL (7.4-10.4); PLATELET COUNT 113 K/uL (130-400); RED BLOOD COUNT 3.19 M/uL (4.2-5.4); WHITE BLOOD COUNT 10.42 K/uL (4.8-10.8)
[2017-01-29 08:49] LABS: URINE PROTIEN/CREAT RATIO 0.8 (0-0.2); URINE TOTAL PROTEIN 51.5 mg/dl (0-11.9)
== END | disposition home or self-care (01) ==
LOC: C.LABSPEC 08:03
PROVIDERS: ATTEND Internal Medicine Nephrology
DX: Z45.2 Encounter for adjustment and management of vascular access device (principal); E11.22 Type 2 diabetes mellitus with diabetic chronic kidney disease; I13.0 Hypertensive heart and chronic kidney disease with heart failure and stage 1 through stage 4 chronic kidney disease, or unspecified chronic kidney disease; I50.22 Chronic systolic (congestive) heart failure; E55.9 Vitamin D deficiency, unspecified

== ENCOUNTER → 2017-04-29 | Outpatient (CLI) | payer MEDICARE ==
[~2017-04-29] MED LIST changes: +PANT40TA2 PO; -PRT/40 PO
== END | disposition home or self-care (01) ==
LOC: C.LAB1850 09:46
PROVIDERS: ATTEND Internal Medicine Pulmonary Disease
DX: R19.7 Diarrhea, unspecified (principal)

== ENCOUNTER → 2017-05-13 | Outpatient (CLI) | payer MEDICARE ==
[2017-05-13 17:09] LABS: HEMATOCRIT 28.9 % (37-47); MEAN CELL VOLUME 104.7 fL (80-100); MEAN CORPUSCULAR HEMOGLOBIN 32.2 pg (25-34); MEAN CORPUSCULAR HGB CONC 30.8 g/dl (32-36); MEAN PLATELET VOLUME 9.5 fL (7.4-10.4); PLATELET COUNT 127 K/uL (130-400); RED BLOOD COUNT 2.76 M/uL (4.2-5.4)
[2017-05-13 18:26] LABS: BLOOD UREA NITROGEN 86 mg/dl (7-18); BUN/CREATININE RATIO 15.7 (10-20); C-REACTIVE PROTEIN 2.65 mg/dl (0-0.29); CALCIUM 8.8 mg/dl (8.5-10.1); CARBON DIOXIDE 18 mmol/L (21-32); CHLORIDE 114 mmol/L (98-107); GLUCOSE 109 mg/dl (70-99); PHOSPHORUS 4.3 mg/dl (2.5-4.9); SODIUM 140 mmol/L (136-145)
[2017-05-13 18:27] LABS: CREATININE 5.62 mg/dl (0.60-1.20)
== END | disposition home or self-care (01) ==
LOC: C.LAB1850 15:37
PROVIDERS: ATTEND Internal Medicine Nephrology
DX: N18.4 Chronic kidney disease, stage 4 (severe) (principal); I10 Essential (primary) hypertension; R60.9 Edema, unspecified; R80.9 Proteinuria, unspecified; E55.9 Vitamin D deficiency, unspecified; M62.81 Muscle weakness (generalized); B96.1 Klebsiella pneumoniae [K. pneumoniae] as the cause of diseases classified elsewhere; A49.8 Other bacterial infections of unspecified site

== ENCOUNTER → 2017-05-22 | Outpatient (CLI) | payer MEDICARE ==
[2017-05-22 15:58] LABS: ALB/GLOB RATIO 0.8 (0.9-2); ALKALINE PHOSPHATASE 86 U/L (45-117); ALT/SGPT 18 U/L (12-78); AST/SGOT 11 U/L (15-37); BLOOD UREA NITROGEN 91 mg/dl (7-18); BUN/CREATININE RATIO 14.9 (10-20); CALCIUM 8.6 mg/dl (8.5-10.1); CARBON DIOXIDE 18 mmol/L (21-32); CHLORIDE 119 mmol/L (98-107); CREATININE 6.17 mg/dl (0.60-1.20); GLUCOSE 114 mg/dl (70-99); SODIUM 142 mmol/L (136-145)
[2017-05-22 16:06] LABS: POTASSIUM 6.1 mmol/L (3.5-5.1)
== END | disposition home or self-care (01) ==
LOC: C.LAB1850 14:02
PROVIDERS: ATTEND Internal Medicine Pulmonary Disease
DX: N18.4 Chronic kidney disease, stage 4 (severe) (principal)

== ENCOUNTER 2017-05-23 12:39 | Inpatient (IN) | payer MEDICARE, OTHER ==
[~2017-05-23] VITALS: Ht 162.6 cm; Wt 41.1 kg
[2017-05-23] MEDS ORDERED: SODIUM CHLORIDE 0.9% 1000ML 1,000 ML IV STA (13:16)
--- NOTE | 2017-05-23 13:19 | EMERGENCY ROOM VISIT NOTE ---
History Report prepared by Harrison: Ir[address] Under the Supervision of: Dr. Michael Melendez M.D. First contact with patient: 13:09 Chief Complaint: ABNORMAL LABS Stated Complaint: POSSIBLE RENAL FAILURE History of Present Illness The patient is a 81 year old female who presents to the Emergency Room with complaints of kidney issues. Per her , her creatinine level has been fluctuating. The patient has a PICC line for her chronic UTIs. She recently finished an antibiotics course. Dr. Fall recently completed labs yesterday and suggested she come to the ED. She denies abdominal pain, headache, SOB, weakness, and chest pain. She endorses normal dietary intake. Of note, the patient is bedridden and has urinary incontinence. Source of History: patient, spouse/significant other Onset: prior to arrival Position: other (kidneys ) Quality: other (chronic kidney issues) Timing: constant Modifying Factors (Relieving): other (normal dietary intake) Associated Symptoms: No headache, No chest pain, No SOB, No abdominal pain, No weakness Review of Systems See HPI for pertinent positives & negatives. A total of 10 systems reviewed and were otherwise negative. Past Medical & Surgical Medical Problems: (1) Acute hypernatremia (2) Acute kidney injury (3) Acute on chronic renal failure (4) acute on chronic renal failure, hyperkalemia (5) Acute renal failure superimposed on stage 4 chronic kidney disease (6) Acute urinary tract infection (7) Anemia (8) Benign hypertension (9) C. 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 (28) Recurrent UTI (29) Secondary hyperparathyroidism of renal origin (30) Sepsis (31) Sepsis due to Klebsiella (32) sepsis recurrent UTI BONNIE on ckd (33) Systolic CHF (34) UTI (urinary tract infection) (35) UTI (urinary tract infection) (36) UTI (urinary tract infection) (37) UTI, altered mental status (38) Weakness Surgical Problems: (1) History of cholecystectomy (2) History of ureter stent Family History Diabetes mellitus Other cardiovascular diseases Stroke Social History Smoking Status: Never Smoker Alcohol Use: none Drug Use: none Marital Status: Housing Status: lives with significant other Occupation Status: retired Current/Historical Medications Scheduled Aspirin (Aspirin), 81 MG PO QPM Atorvastatin (Lipitor), 80 MG PO QPM Carvedilol (Coreg), 12.5 MG PO QAM Cholecalciferol (Vitamin D3), 1 TAB PO DAILY Clopidogrel Bisulfate (Clopidogrel), 75 MG PO QPM Coconut Oil (Bulk) (Coconut Oil), 1 CAP PO HS Cranberry (Vaccinium Macrocarp (Cranberry), Unknown Dose PO TID Febuxostat (Uloric), 40 MG PO NOON Loteprednol Etabonate (Lotemax), 1 DROP OPB QAM Multiple Vitamins W/ Minerals (Centrum Silver Ultra [place]), 1 TAB PO QAM Nystatin (Nystop), 1 DOSE TOP BID Pantoprazole (Pantoprazole Sodium), 40 MG PO QAM Probiotic Product (Probiotic), 1 TAB PO QPM Sodium Bicarbonate (Sodium Bicarbonate), 1 TAB PO QAM Vancomycin Hcl (Vancomycin), 125 MG PO QAM Scheduled PRN Lorazepam (Ativan), 0.5 MG PO Q6H PRN for Anxiety Ondasetron Odt (Zofran Odt), 4 MG PO Q6H PRN for Nausea Allergies Coded Allergies: Sulfa Antibiotics (Verified Allergy, Intermediate, BODY SWELLING,NAUSEA AND VOMITNG, 05/23/17) Penicillins (Verified Allergy, Unknown, Tolerates Primaxin, does NOT tolerate ZOSYN, 05/23/17) PER PCP RECORDS Physical Exam Vital Signs Date Time Temp Pulse Resp B/P (MAP) Pulse Ox O2 Delivery O2 Flow Rate FiO2 05/23/17 17:36 89 18 134/57 97 Room Air 05/23/17 15:25 73 18 104/59 95 Room Air 05/23/17 14:22 73 18 113/55 99 Room Air 05/23/17 12:54 74 05/23/17 12:51 36.8 76 18 123/56 97 Room Air 2.0 Physical Exam GENERAL: Patient is chronically unwell appearing and in mild distress. HEENT: No acute trauma, normocephalic atraumatic, mucous membranes moist, no nasal congestion, no scleral icterus. Chronic right eye cloudy. NECK: No stridor, no adenopathy, no meningismus, trachea is midline. LUNGS: No dyspnea. Clear to auscultation and equal bilaterally. No wheeze, no rhonchi. HEART: Regular rate and rhythm. No murmurs, rubs, gallops appreciated. ABDOMEN: Soft, nontender, bowel sounds positive, no masses appreciated, no peritonitis. BACK: No midline tenderness, no CVA tenderness EXTREMITIES: Normal motion all extremities, no cyanosis, no edema. PICC line in right arm with clean, dry and intact incision site. Generalized weakness with muscle wasting. NEUROLOGIC: Alert and oriented, no acute motor or sensory deficits, no focal weakness, cranial nerves grossly intact. SKIN: No rash, no jaundice, no diaphoresis. Medical Decision & Procedures ER Provider Diagnostic Interpretation: ] SINGLE VIEW CHEST CLINICAL HISTORY: Generalized weakness. FINDINGS: An AP, portable, upright chest radiograph is compared to study dated 03/13/2017. The examination is degraded by portable technique, apical lordotic positioning, and patient rotation. A right PICC line is unchanged in position. A single lead cardiac AICD is also unchanged and partially obscures the left upper chest. The heart is enlarged and there is atherosclerotic calcification of the thoracic aorta. The pulmonary vasculature is noncongested. Trace pleural effusions are suspected. There is left basilar atelectasis. No pneumothorax is seen. The skeletal structures are osteopenic. The bony thorax is grossly intact. Cholecystectomy clips are seen in the right upper quadrant. IMPRESSION: 1. Cardiomegaly and ICD. There is no radiographic evidence of congestive failure. 2. Trace pleural effusions are identified. Electronically signed by: Hitesh Macdonald M.D. 05/23/2017 1:59 PM Laboratory Results 05/23/17 14:17 Red Blood Count 2.65, Mean Corpuscular Volume 105.7, Mean Corpuscular Hemoglobin 31.7, Mean Corpuscular Hemoglobin Concent 30.0, Mean Platelet Volume 9.4, Neutrophils (%) (Auto) 59.8, Lymphocytes (%) (Auto) 22.7, Monocytes (%) ( Auto) 4.3, Eosinophils (%) (Auto) 8.2, Basophils (%) (Auto) 0.5, Neutrophils # ( Auto) 6.18, Lymphocytes # (Auto) 2.35, Monocytes # (Auto) 0.44, Eosinophils # ( Auto) 0.85, Basophils # (Auto) 0.05 Test 05/23/17 13:35 05/23/17 14:17 05/23/17 17:34 05/23/17 17:42 Urine Color YELLOW Urine Appearance TURBID (CLEAR) Urine pH 6.0 (4.5-7.5) Urine Specific [place] 1.013 (1.000-1.030) Urine Protein 1+ (NEG) Urine Glucose (UA) NEG (NEG) Urine Ketones NEG (NEG) Urine Occult Blood 2+ (NEG) Urine Nitrite NEG (NEG) Urine Bilirubin NEG (NEG) Urine Urobilinogen NEG (NEG) Urine Leukocyte Esterase LARGE (NEG) Urine WBC (Auto) >30 /hpf (0-5) Urine RBC (Auto) 10-30 /hpf (0-4) Urine Hyaline Casts (Auto) 1-5 /lpf (0-5) Urine Epithelial Cells (Auto) 10-20 /lpf (0-5) Urine Bacteria (Auto) 1+ (NEG) Urine Crystals TRIPLE PHOSPHATE Urine Yeast (Auto) (NONE PRSENT) White Blood Count 10.33 K/uL (4.8-10.8) Red Blood Count 2.65 M/uL (4.2-5.4) Hemoglobin 8.4 g/dL (12.0-16.0) Hematocrit 28.0 % (37-47) Mean Corpuscular Volume 105.7 fL (80-100) Mean Corpuscular Hemoglobin 31.7 pg (25-34) Mean Corpuscular Hemoglobin Concent 30.0 g/dl (32-36) Platelet Count 132 K/uL (130-400) Mean Platelet Volume 9.4 fL (7.4-10.4) Neutrophils (%) (Auto) 59.8 % Lymphocytes (%) (Auto) 22.7 % Monocytes (%) (Auto) 4.3 % Eosinophils (%) (Auto) 8.2 % Basophils (%) (Auto) 0.5 % Neutrophils # (Auto) 6.18 K/uL (1.4-6.5) Lymphocytes # (Auto) 2.35 K/uL (1.2-3.4) Monocytes # (Auto) 0.44 K/uL (0.11-0.59) Eosinophils # (Auto) 0.85 K/uL (0-0.5) Basophils # (Auto) 0.05 K/uL (0-0.2) RDW Standard Deviation 55.9 fL (36.4-46.3) RDW Coefficient of Variation 14.8 % (11.5-14.5) Immature Granulocyte % (Auto) 4.5 % Immature Granulocyte # (Auto) 0.46 K/uL (0.00-0.02) Tear Drop Cells OCCASIONAL Est Creatinine Clear Calc Drug Dose 6.0 ml/min Total Bilirubin 0.3 mg/dl (0.2-1) Direct Bilirubin < 0.1 mg/dl (0-0.2) Aspartate Amino Transf (AST/SGOT) 9 U/L (15-37) Alanine Aminotransferase (ALT/SGPT) 16 U/L (12-78) Alkaline Phosphatase 87 U/L (45-117) Total Protein 6.7 gm/dl (6.4-8.2) Albumin 3.0 gm/dl (3.4-5.0) Lipase 220 U/L (73-393) Bedside Glucose 155 mg/dl (70-90) Laboratory results as reviewed by me. Medications Administered Medications (Trade) Dose Ordered Sig/Helder Route Start Time Stop Time Status Last Admin Dose Admin Sodium Chloride 1,000 ml @ 75 mls/hr [id number] STAT IV 05/23/17 13:16 05/24/17 02:35 05/23/17 14:25 75 MLS/HR Sodium Chloride 500 ml @ 999 mls/hr Q31M STAT IV 05/23/17 15:31 05/23/17 16:01 DC 05/23/17 16:37 999 MLS/HR Sodium Bicarbonate (Sodium Bicarbonate 8.4% Inj) 50 ml NOW STAT IV 05/23/17 15:31 05/23/17 15:34 DC 05/23/17 16:37 50 ML Insulin Human Regular (novoLIN-R U-100 PER UNIT) 10 units NOW STAT IV 05/23/17 15:31 05/23/17 15:34 DC 05/23/17 16:40 10 UNITS Dextrose (Dextrose 50% 50ML Syringe) 50 ml NOW STAT IV 05/23/17 15:31 05/23/17 15:35 DC 05/23/17 16:37 50 ML Calcium Gluconate (Calcium Gluconate 10%) 1,000 mg NOW STAT IV 05/23/17 15:31 05/23/17 15:35 DC 05/23/17 16:36 1,000 MG Alteplase, Recombinant (Activase Cathflo) 2 mg ONE ONCE IV 05/23/17 15:45 05/23/17 15:46 DC 05/23/17 17:09 2 MG Sodium Polystyrene Sulfonate (Kayexalate Susp) 30 gm NOW STAT PO 05/23/17 16:01 05/23/17 16:02 DC 05/23/17 16:40 30 GM ECG Rate (beats per minute): 76 Rhythm: normal sinus, other Findings: T-wave inversion (Lateral), no acute ischemic change, left axis deviation, no ectopy Comparison ECG Date: similar morphology to EKG on 01/01/2017 ED Course 1533: I paged the [facility] manager community relations for patient management. 1547: I spoke with Dr. Fall about patient management. 1550: I spoke with Dr. Fall about the patient treatment management of her acute renal failure regarding dialysis, and fluids. Medical Decision Differential: Sepsis, Infectious (UTI/Pneumonia/Meningitis/etc), Metabolic/ Electrolyte Abnormality, Cardiac, Hepatic, Endocrine, Toxicologic, Neurologic, amongst other pathologies entertained. Chronically unwell 81 yr old female with chronic renal failure which has acutely worsened over the last week and is now with hyperK. HyperK confirmed here. No severe EKG changes but given findings I felt that full medical treatment necessary. She and are not interested at this time in dialysis stating they have discussed this before, and nephrology who know her confirm this. Vitals OK while here. Reviewed case with nephro, medicine and on several occasions. Of note, picc line blocked and IV team down to see and unclog. Consults Time Called: 1533 Consulting Physician: Dr. Corral - ([facility]: Nephrology) Returned Call: [phone] I spoke about patient treatment management for the patient's acute renal failure , dialysis, and fluids. Additional Consults: Time Called: 1556 Consulted Physician: Dr. Dana LOPEZ Returned Call: [phone] Additional Comments: I spoke about management of the patient's treatment plan. Impression Primary Impression: Acute renal failure Additional Impression: Hyperkalemia Critical Care I have personally spent greater than 45 minutes of critical care time in the direct management of this patient. This was a life/limb threatening event. This includes time spent evaluating patient, direct bedside care, chart review, placing orders, interpretation of diagnostic studies, discussion with consultants, patient, and family members, as well as other required patient management activities. This 45 minutes is in excess of all separately billable procedures. Scribe Attestation The scribe's documentation has been prepared under my direction and personally reviewed by me in its entirety. I confirm that the note above accurately reflects all work, treatment, procedures, and medical decision making performed by me. Departure Information Referrals Jan Cervantes M.D. (PCP) Patient Instructions My [facility] Problem Qualifiers
--- NOTE | 2017-05-23 14:00 | DIAGNOSTIC IMAGING REPORT ---
SINGLE VIEW CHEST CLINICAL HISTORY: Generalized weakness. FINDINGS: An AP, portable, upright chest radiograph is compared to study dated 03/13/2017. The examination is degraded by portable technique, apical lordotic positioning, and patient rotation. A right PICC line is unchanged in position. A single lead cardiac AICD is also unchanged and partially obscures the left upper chest. The heart is enlarged and there is atherosclerotic calcification of the thoracic aorta. The pulmonary vasculature is noncongested. Trace pleural effusions are suspected. There is left basilar atelectasis. No pneumothorax is seen. The skeletal structures are osteopenic. The bony thorax is grossly intact. Cholecystectomy clips are seen in the right upper quadrant. IMPRESSION: 1. Cardiomegaly and ICD. There is no radiographic evidence of congestive failure. 2. Trace pleural effusions are identified. Electronically signed by: Hitesh Macdonald M.D. 05/23/2017 1:59 PM Dictated Date/Time: 05/23/2017 1:57 PM
[2017-05-23 14:18] LABS: URINE APPEARANCE TURBID (CLEAR); URINE BILIRUBIN NEG (NEG); URINE COLOR YELLOW; URINE NITRITE NEG (NEG); URINE SPECIFIC GRAVITY 1.013 (1.000-1.030); UROBILINOGEN NEG (NEG); ZZURINE CULT IF INDIC CATH YES
[2017-05-23 14:24] LABS: MANUAL MICROSCOPIC REQUIRED? NO; REVIEW REQ? YES
[2017-05-23 14:42] LABS: BASO % 0.5 %; BASO ABS # 0.05 K/uL (0-0.2); EOS % 8.2 %; IG% 4.5 %; LYMPH % 22.7 %; LYMPH ABS # 2.35 K/uL (1.2-3.4); MEAN CELL VOLUME 105.7 fL (80-100); MEAN CORPUSCULAR HEMOGLOBIN 31.7 pg (25-34); MEAN PLATELET VOLUME 9.4 fL (7.4-10.4); MONO % 4.3 %; NEUT % 59.8 %; PLATELET COUNT 132 K/uL (130-400); RED BLOOD COUNT 2.65 M/uL (4.2-5.4); WHITE BLOOD COUNT 10.33 K/uL (4.8-10.8)
[2017-05-23 15:10] LABS: COMPLETE YES; TEAR DROP CELLS OCCASIONAL
[2017-05-23 15:24] LABS: ALKALINE PHOSPHATASE 87 U/L (45-117); ALT/SGPT 16 U/L (12-78); AST/SGOT 9 U/L (15-37); BLOOD UREA NITROGEN 92 mg/dl (7-18); CALCIUM 8.8 mg/dl (8.5-10.1); CARBON DIOXIDE 20 mmol/L (21-32); CHLORIDE 119 mmol/L (98-107); CREATININE 6.18 mg/dl (0.60-1.20); GLUCOSE 122 mg/dl (70-99); MAGNESIUM 2.6 mg/dl (1.8-2.4); PHOSPHORUS 4.4 mg/dl (2.5-4.9); POTASSIUM 6.5 mmol/L (3.5-5.1); SODIUM 144 mmol/L (136-145)
[2017-05-23] MEDS ORDERED: DEXTROSE 50% 50 ML SYR IV STA (15:31)
[2017-05-23] MEDS ORDERED: CALCIUM GLUCONATE 10% 10 ML VIAL IV STA (15:31)
[2017-05-23] MEDS ORDERED: SODIUM BICARB 8.4% INJ 50 MEQ/50 ML SYR IV STA (15:31)
[2017-05-23] MEDS ORDERED: SODIUM CHLORIDE 0.9% 500ML 500 ML IV STA (15:31)
[2017-05-23] MEDS ORDERED: NovoLIN-R INSULIN PER UNIT CHARGE IV STA (15:31)
[2017-05-23] MEDS ORDERED: ALTEPLASE, RECOMBINANT 1 MG/ML 2 ML VIAL IV ONE (15:45)
[2017-05-23] MEDS ORDERED: SODIUM POLYST. SULF SUSP 15G/60ML PO STA ×2 (16:01→20:33)
[2017-05-23] MEDS ORDERED: MAGNESIUM HYDROXIDE SUSP 30 ML UDC PO PRN (16:30)
[2017-05-23] MEDS ORDERED: ONDANSETRON INJ 2 MG/ML 2 ML VIAL IV PRN (16:30)
[2017-05-23] MEDS ORDERED: ERTAPENEM 1 GM ADDVIAL IV ONE (16:30)
[2017-05-23] MEDS ORDERED: LORAZEPAM 0.5 MG TAB PO PRN (16:30)
[2017-05-23] MEDS ORDERED: ACETAMINOPHEN 325 MG TAB PO PRN (16:30)
[2017-05-23] MEDS ORDERED: POLYETHYLENE (MIRALAX) 17 GM PACK PO PRN (16:30)
[2017-05-23] MEDS ORDERED: SODIUM CHLORIDE 0.9% 1000ML 1,000 ML IV SCH (16:30)
[2017-05-23] MEDS ORDERED: ALUMINUM/MAGNESIUM/SIMETH (MAALOX MAX) 30 ML UDC PO PRN (16:30)
--- NOTE | 2017-05-23 16:59 | History and Physical ---
History & Physical Date of Service May 23, 2017. History & Physical acute on chronic renal failure, hyperkalemia, [id number]
--- NOTE | 2017-05-23 18:07 | HISTORY & PHYSICAL EXAMINATION ---
DATE OF ADMISSION: 05/23/2017 This is admission H&P, 35 minutes. CHIEF COMPLAINT: Possible renal failure. HISTORY OF PRESENT ILLNESS: The patient is an 81-year-old white female with significant past medical history of chronic kidney disease, frequent urinary tract infection, anemia, C. diff colitis, hypertension, CHF, cardiac catheterization, CAD, diabetic, ischemic cardiomyopathy, pneumonia, sepsis, ureteral stent, comes to the hospital Emergency Department because of the above chief complaint. The patient had frequent UTI and last admission was in December. After she was discharged, she has been doing well. In November, the ureteral stent was removed. However, in recent couple days, she was found to have worsening creatinine levels and hyperkalemia. It was followed up with the student affairs dean, there were some discussions about dialysis or not. The patient today coming to the hospital Emergency Department because of worsening BUN and creatinine and potassium is high. In the Emergency Room, potassium was up to 6.5, creatinine was up to 6.18. When I interviewed the patient, she is awake, alert, and orientated, looks to be at her baseline because I know her from before. was at the bedside, reported has no fever or chills. Has no nausea or vomiting. Has been eating good and appetite is good too. 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 reports the patient has good urine output with wet diaper. The patient denied dysuria, urgency or frequencies. Denied hematuria. Denied chest pain, palpitations or lower extremity swelling. The patient most of the time is bedridden, occasionally out of bed to the wheelchair. reports there was no open wound on the skin. PAST MEDICAL HISTORY: Like I mentioned above includes CKD stage III, anemia of chronic disease, hypertension, chronic systolic and diastolic CHF, ischemic cardiomyopathy with EF 30-40% with AICD in place, moderate mitral regurgitation, pulmonary hypertension, moderate tricuspid regurgitation, coronary artery disease status post GA in 2011, chronic debilitation, history of recurrent C. diff diarrhea, now on chronic suppression antibiotic, dyslipidemia, history of UVJ obstruction, status post bilateral ureteral stent placement and was removed in December 2016, urinary and fecal incontinence, interstitial cystitis, recurrent cystitis with multiple drug-resistant Klebsiella, chronic respiratory failure. PAST SURGICAL HISTORY: Includes bilateral corneal transplant, cholecystectomy, appendectomy, AICD placement, and bilateral ureteral stent in 06/2015 and removed in [id number]. FAMILY HISTORY: Includes diabetes, cardiovascular disease and stroke. SOCIAL HISTORY: Never smoked. Denied alcohol abuse disorder, denied illicit drug abuse. Lives with , is retired. ALLERGIES: ALLERGIC TO SULFA AND PENICILLIN. HOME MEDICATIONS: Currently include aspirin 81 mg p.o. q.p.m., Lipitor 80 mg p.o. q.p.m., Coreg 12.5 mg p.o. q.a.m., vitamin D3 one tab p.o. daily, Plavix 75 mg p.o. q.p.m., coconut 1 capsule p.o. at bedtime, cranberry unknown dose p.o. t.i.d., Uloric 40 mg p.o. at noontime, Lotemax 1 drop OPB q.a.m., multiple vitamin 1 tab p.o. q.a.m., nystatin one dose topical use b.i.d., Protonix 40 mg p.o. q.a.m., probiotic 1 tab p.o. q.p.m., sodium bicarbonate 1 tab p.o. q.a.m., vancomycin 125 mg p.o. q.a.m. Medicines use as needed include Ativan 0.5 mg p.o. q. 6 hours p.r.n. for anxiety, Zofran 4 mg p.o. q. 6 hours p.r.n. for nausea. ALLERGIES: ALLERGIC TO SULFA AND PENICILLIN. REVIEW OF SYSTEMS: Please see HPI. Otherwise, 14-point organ system review was negative. PHYSICAL EXAMINATION: VITAL SIGNS: Temperature is 36.8, pulse 76, respiration rate 18, blood pressure 123/56, pulse ox was 97% on room air. GENERAL: The patient is a white female, chronically ill looking, no acute distress. HEAD: Normocephalic. EYES: Pupils equal, round, respond to light. Conjunctivae, no injection. Sclerae nonicterus. EARS: Normal. NOSE: Normal. MOUTH: Dry mucous membranes. Trachea in midline. NECK: Thyroid, no enlargement. LUNGS: Bilateral lungs decreased breathing sounds. There is no wheezing, rhonchi or crackles. HEART: Regular rhythm. S1, S2. Has no murmur, no gallop, no rub. ABDOMEN: Soft, nontender. Bowel sounds positive. BACK: Has no tenderness. Bilateral CVA is nontender. EXTRIMITIES: Normal motions in all extremities. Right arm has PICC line in place. NEUROLOGICAL: Cranial nerves II-XII intact. There are no local deficits. The patient is conversational. SKIN: Has no rashes. LABORATORY STUDIES: WBC 10, hemoglobin 8.4, platelet 132. BUN 92, creatinine 6.18. Sodium 144, potassium 6.5, blood glucose 122, chloride 119, bicarbonate 20. Urine shows white blood cells more than 30, leukocyte esterase was large. EKG shows normal sinus rhythm, T-wave inversion. There was no tented T-wave. Chest x-ray was done which shows cardiomegaly and AICD. There were trace pleural effusions. ASSESSMENT: An 81-year-old white female with conditions below: 1. Acute on chronic kidney failure. The patient is still making good urine. 2. Hyperkalemia secondary to Acute on chronic kidney failure, which continues getting worse. 3. Possible recurrent urinary tract infection. 4. History of stent in bilateral ureters, removed in December 2016. 5. Anemia of chronic disease. 6. Hypertension. 7. Congestive heart failure, both systolic and diastolic, currently compensated. 8. Ischemic cardiomyopathy with EF 30-40% with AICD in place. 9. Pulmonary hypertension. 10. History of coronary artery disease status post myocardial infarction in 2011. 11. Chronic debilitation. 12. History of recurrent Clostridium difficile. Continue on chronic suppression with oral vancomycin. 13. Dyslipidemia. 14. Urinary and fecal incontinence. 15. Chronic respiratory failure. PLAN: 1. The patient has acute on chronic kidney failure associated with hyperkalemia. Per conversation with on-call student affairs dean, the patient and discussed with Dr. Corral and the decision is they do not want to have dialysis. However, at bedside, when I had detailed discussion with the patient's , he said would try to avoid dialysis, but if the dialysis become unavoidable, he does not want to have his because of acute kidney failure, he would like to have dialysis. Currently, the patient still makes urine. We will continue to try to treat hyperkalemia and give hydration, watch renal function and chemicals including potassium, phosphorus, sodium and magnesium. We will closely monitor her labs. I ordered midnight lab and tomorrow morning lab as well. If the patient's lab or potassium condition is getting worse, if dialysis becomes unavoidable, we shall talk to the and need to have ICU transfer to have dialysis catheter and start dialysis. I will notify ICU service to give them a heads up in case the patient's condition is getting worse midnight tonight. I will insert Nam catheter to calculate input and output. 2. The patient has acute UTI. With multiple drug-resistant history of Klebsiella UTI, I will berry picker Invanz for IV antibiotic and follow up urine culture results and then go from there. The patient has history of ureteral stent, now has acute on chronic kidney failure. Want to see if post renal blockages may have caused the condition, therefore, renal ultrasound was ordered stat to evaluate this condition. If blockage is the problem, we did need to have urology consultation. 3. Other medical conditions such as hypertension, CHF, CAD, history of recurrent C. diff, dyslipidemia, we will continue home medication. 4. Discussed with about code status, he wants the patient to be full code. 5. GI and DVT prophylaxis is covered. MARIELA
[2017-05-23 19:07] LABS: BLOOD UREA NITROGEN 92 mg/dl (7-18); BUN/CREATININE RATIO 14.8 (10-20); CALCIUM 9.1 mg/dl (8.5-10.1); CARBON DIOXIDE 17 mmol/L (21-32); CHLORIDE 121 mmol/L (98-107); CREATININE 6.21 mg/dl (0.60-1.20); GLUCOSE 138 mg/dl (70-99); SODIUM 149 mmol/L (136-145)
[2017-05-23 19:09] VITALS: BP 145/72; PULSE 86; TEMP 36.8; O2SAT 100; Ht 162.6 cm; Wt 41.1 kg
[2017-05-23 20:00] VITALS: BP 139/61; PULSE 85; TEMP 36.6; O2SAT 100
[2017-05-23] MEDS ORDERED: SODIUM BICARBONATE 8.4% INJ 150 MEQ in DEXTROSE 5% 1000ML 1,000 ML IV SCH (20:00)
[2017-05-23 20:11] LABS: MAGNESIUM 2.7 mg/dl (1.8-2.4)
[2017-05-23 20:27] LABS: POTASSIUM 5.5 mmol/L (3.5-5.1)
[2017-05-23] MEDS: AD VAN IV SCH (20:49)
[2017-05-23] MEDS: ERTAPENEM IV SCH (20:49)
[2017-05-23] MEDS: SODIUM CHLOR 0.9% IV SCH (20:49)
[2017-05-23] MEDS: ASPIRIN 81 MG ECTAB PO SCH (20:57)
[2017-05-23] MEDS: NYSTATIN POWDER 15GM BTL EXT SCH (20:57)
[2017-05-23] MEDS: ATORVASTATIN 40 MG TAB PO SCH (20:58)
[2017-05-23] MEDS: CLOPIDOGREL BISULFATE 75 MG TAB PO SCH (20:58)
[2017-05-23] MEDS ORDERED: COCONUT OIL PO SCH (21:00)
[2017-05-23] MEDS ORDERED: HEPARIN SOD 5000 UNIT/0.5 ML CARP SQ SCH (21:00)
[2017-05-23] MEDS ORDERED: NON-FORMULARY MEDICATION (Probiotic Product (Probiotic) 1 TAB) PO SCH (21:00)
--- NOTE | 2017-05-23 21:16 | Nephrology Consultation ---
Nephrology Consultation Date & Providers Date of Consultation: May 23, 2017. Primary Care Provider: Jan Cervantes M.D. Referring Provider: Reason for Consultation Evaluation management for acute kidney injury, hyperkalemia and metabolic acidosis. History of Present Illness Mrs Chase is a 81-year-old female with advanced CKD, recurrent acute kidney injury, recurrent urinary tract infection, h/o C diff, CHF with systolic dysfunction admitted to the hospital with acute kidney injury, hyperkalemia and metabolic acidosis. Nephrology consult was requested for management of acute kidney injury and electrolyte abnormality. Electronic medical records including labs and imaging are reviewed in detail during patient's visit. Mr. Chase was not present during the visit. Tiana has stage 5 chronic kidney disease, baseline creatinine has been around 3.0-3.5, eGFR around 10, history of bilateral hydronephrosis, frequent and recurrent episode of acute kidney injury in the setting urinary tract infection , obstructive uropathy, volume depletion and sepsis. Her primary compliance administrator is Dr. Corral. Previously patient and her made the decision not to consider renal replacement therapy in future and she is being managed conservatively. She has chronic bilateral hydronephrosis, secondary to bladder information causing ureteral obstruction and recurrent acute kidney injury, had bilateral ureteral stent, previously percutaneous nephrostomy was recommended but her and patient decided not to have nephrostomy. Ureteral stent was removed on 11/15/16. She recently had outpatient labs done by her primary care physician and ID, she was found to have worsening renal function creatinine was 5.6 and potassium was 6.0 on lab done a week ago. Had follow-up lab done today when her potassium went up further to 6.1, creatinine was 6.2. Patient was advised to come to the ED for further evaluation. On admission repeat lab showed potassium worsened to 6.5, she had metabolic acidosis in creatinine stayed at 6.2. She was found to be significantly volume depleted. EKG showed no acute changes. She was given insulin, D50, calcium gluconate and Kayexalate 30 g in ER. Repeat lab showed potassium slightly improved to 5.5 however renal function remained stable. She has been on IV fluid since admission. Had chest x-ray done without any sign of volume overload. Urinalysis showed urinary tract infection and she was started on Invanz. She reports adequate p.o. intake prior admission. She reports normal voiding prior to admission. Currently she feels thirsty but otherwise denies any other symptoms. She is awake, alert. Has Nam catheter placed, has some urine output. She had several bowel movement after she received Kayexalate. Denies any shortness of breath, chest pain, fever, chills, headache or visual changes. Renal ultrasound ordered stat but currently pending. Allergies Coded Allergies: Sulfa Antibiotics (Verified Allergy, Intermediate, BODY SWELLING,NAUSEA AND VOMITNG, 05/23/17) Penicillins (Verified Allergy, Unknown, Tolerates Primaxin, does NOT tolerate ZOSYN, 05/23/17) PER PCP RECORDS Inpatient Medications Current Inpatient Medications Medications (Trade) Dose Ordered Sig/Helder Route Start Time Stop Time Status Last Admin Dose Admin Heparin Sodium (Porcine) (Heparin Sq 5000 Unit/0.5ml) 5,000 unit Q12H SQ 05/23/17 21:00 06/22/17 20:59 Acetaminophen (Tylenol Tab) 650 mg Q4H PRN PO 05/23/17 16:30 06/22/17 16:29 Al Hydrox/Mg Hydrox/Simethicone (Maalox Max Susp) 15 ml Q4H PRN PO 05/23/17 16:30 06/22/17 16:29 Magnesium Hydroxide (Milk Of Magnesia Susp) 30 ml Q12H PRN PO 05/23/17 16:30 06/22/17 16:29 Ondansetron HCl (Zofran Inj) 4 mg Q6H PRN IV 05/23/17 16:30 06/22/17 16:29 Polyethylene (Miralax Powder Packet) 17 gm DAILY PRN PO 05/23/17 16:30 06/22/17 16:29 Ertapenem 500 mg/ Sodium Chloride 55 ml @ 100 mls/hr DAILY@2000 IV 05/23/17 20:00 05/28/17 19:59 Aspirin (Ecotrin Tab) 81 mg QPM PO 05/23/17 21:00 06/22/17 20:59 Atorvastatin Calcium (Lipitor Tab) 80 mg QPM PO 05/23/17 21:00 06/22/17 20:59 Carvedilol (Coreg Tab) 12.5 mg QAM PO 05/24/17 09:00 06/23/17 08:59 Cholecalciferol (Vitamin D Tab) 1,000 inter.unit DAILY PO 05/24/17 09:00 06/23/17 08:59 Clopidogrel Bisulfate (plAVix TAB) 75 mg QPM PO 05/23/17 21:00 06/22/17 20:59 Lorazepam (Ativan Tab) 0.5 mg Q6H PRN PO 05/23/17 16:30 06/22/17 16:29 Multivitamins/ Minerals (Multivitamin W/ Minerals Tab) 1 tab QAM PO 05/24/17 09:00 06/23/17 08:59 Nystatin (Mycostatin Powder) 1 appln BID EXT 05/23/17 21:00 06/22/17 20:59 Ondansetron HCl (Zofran Odt) 4 mg Q6H PRN PO 05/23/17 16:30 06/22/17 16:29 Pantoprazole Sodium (Protonix Tab) 40 mg QAM PO 05/24/17 09:00 06/23/17 08:59 Sodium Bicarbonate (Sodium Bicarbonate Tab) 650 mg QAM PO 05/24/17 09:00 06/23/17 08:59 Vancomycin HCl (Vancomycin Oral Soln) 125 mg QAM PO 05/24/17 09:00 06/03/17 08:59 Febuxostat (Uloric) 40 mg DAILY@1200 PO 05/24/17 12:00 06/23/17 11:59 Miscellaneous Information (Order Awaiting Action) 1 ea QS N/A 05/24/17 00:00 06/23/17 00:00 Raspberry (Raspberry Syrup 5ml Cup) 5 ml Taper QAM PO 05/24/17 09:00 07/08/17 08:59 Sodium Bicarbonate 150 meq/Dextrose 1,150 ml @ 100 mls/hr [id number] IV 05/23/17 20:00 06/22/17 19:59 Family History Diabetes mellitus Other cardiovascular diseases Stroke Social History Smoking Status: Never Smoker Drug Use: none Marital Status: Housing Status: lives with significant other 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 Review of Systems A complete review of systems was performed. Pertinent positives are noted above. All other systems are negative. Physical Exam Date Time Temp Pulse Resp B/P (MAP) Pulse Ox O2 Delivery O2 Flow Rate FiO2 05/23/17 19:09 36.8 86 17 145/72 100 Nasal Cannula 2.0 05/23/17 17:36 89 18 134/57 97 Room Air 05/23/17 15:25 73 18 104/59 95 Room Air 05/23/17 14:22 73 18 113/55 99 Room Air 05/23/17 12:54 74 05/23/17 12:51 36.8 76 18 123/56 97 Room Air 2.0 GENERAL: Elderly female. AAA x 3, ill-appearing, not in any distress. HEENT: Atraumatic, normocephalic. NECK: Supple, no JVD, no carotid bruit appreciated. MOUTH and THROAT: dry oral mucosa, no oral ulcer or pharyngeal erythema RESPIRATORY: Normal breathing efforts, no accessory muscle use, clear to auscultation bilaterally, no wheezes or rales. CARDIOVASCULAR: S1, S2 normal, rate rhythm regular. ABDOMEN: Soft, nontender, positive bowel sound. MUSCULOSKELETAL: No joint swelling, erythema or tenderness. Normal range of motion. SKIN: No skin rash EXTREMITY: No lower extremity edema NEURO: No gross focal neurological deficit, speech fluent. PSYCHIATRY: flat affect Laboratory Results Last 24 Hours Test 05/23/17 13:35 05/23/17 14:17 05/23/17 17:34 05/23/17 17:42 Urine Color YELLOW Urine Appearance TURBID Urine pH 6.0 Urine Specific [place] 1.013 Urine Protein 1+ Urine Glucose (UA) NEG Urine Ketones NEG Urine Occult Blood 2+ Urine Nitrite NEG Urine Bilirubin NEG Urine Urobilinogen NEG Urine Leukocyte Esterase LARGE Urine WBC (Auto) >30 /hpf Urine RBC (Auto) 10-30 /hpf Urine Hyaline Casts (Auto) 1-5 /lpf Urine Epithelial Cells (Auto) 10-20 /lpf Urine Bacteria (Auto) 1+ Urine Crystals TRIPLE PHOSPHATE Urine Yeast (Auto) White Blood Count 10.33 K/uL Red Blood Count 2.65 M/uL Hemoglobin 8.4 g/dL Hematocrit 28.0 % Mean Corpuscular Volume 105.7 fL Mean Corpuscular Hemoglobin 31.7 pg Mean Corpuscular Hemoglobin Concent 30.0 g/dl Platelet Count 132 K/uL Mean Platelet Volume 9.4 fL Neutrophils (%) (Auto) 59.8 % Lymphocytes (%) (Auto) 22.7 % Monocytes (%) (Auto) 4.3 % Eosinophils (%) (Auto) 8.2 % Basophils (%) (Auto) 0.5 % Neutrophils # (Auto) 6.18 K/uL Lymphocytes # (Auto) 2.35 K/uL Monocytes # (Auto) 0.44 K/uL Eosinophils # (Auto) 0.85 K/uL Basophils # (Auto) 0.05 K/uL RDW Standard Deviation 55.9 fL RDW Coefficient of Variation 14.8 % Immature Granulocyte % (Auto) 4.5 % Immature Granulocyte # (Auto) 0.46 K/uL Tear Drop Cells OCCASIONAL Sodium Level 144 mmol/L 149 mmol/L Potassium Level 6.5 mmol/L mmol/L Chloride Level 119 mmol/L 121 mmol/L Carbon Dioxide Level 20 mmol/L 17 mmol/L Anion Gap 5.0 mmol/L 11.0 mmol/L Blood Urea Nitrogen 92 mg/dl 92 mg/dl Creatinine 6.18 mg/dl 6.21 mg/dl Est Creatinine Clear Calc Drug Dose 6.0 ml/min 5.9 ml/min Estimated GFR () 6.7 6.6 Estimated GFR (Non- 5.8 5.7 BUN/Creatinine Ratio 15.0 14.8 Random Glucose 122 mg/dl 138 mg/dl Calcium Level 8.8 mg/dl 9.1 mg/dl Phosphorus Level 4.4 mg/dl 4.0 mg/dl Magnesium Level 2.6 mg/dl mg/dl Total Bilirubin 0.3 mg/dl Direct Bilirubin < 0.1 mg/dl Aspartate Amino Transf (AST/SGOT) 9 U/L Alanine Aminotransferase (ALT/SGPT) 16 U/L Alkaline Phosphatase 87 U/L Total Protein 6.7 gm/dl Albumin 3.0 gm/dl Lipase 220 U/L Bedside Glucose 155 mg/dl Test 05/23/17 19:19 Prothrombin Time 11.0 SECONDS Prothromb Time International Ratio 1.0 Potassium Level 5.5 mmol/L Magnesium Level 2.7 mg/dl Impression Mrs. Johns is a 81-year-old female with multiple significant comorbidities including CHF with ejection fraction 20-25%, hypertension, advanced CKD, recurrent urinary tract infection, obstructive uropathy and recurrent history of acute kidney injury admitted with acute kidney injury, hyperkalemia, metabolic acidosis and urinary tract infection. She has been getting IV fluid and Invanz. Has chronic anemia with advanced CKD and secondary hyperparathyroidism. Has history of stage 5 chronic kidney disease,Baseline creatinine has been 3.0-3.5, history of bilateral hydronephrosis and recurrent acute kidney injury. Previously had bilateral ureteral stent which was removed in November 2016. Patient and family previously decided not to consider renal replacement therapy and being managed by conservative approach only. However as per Dr. Cortez since note mentioned he might consider dialysis if that is unavoidable in the setting of acute kidney injury. Renal ultrasound was ordered stat but still pending. Acute kidney injury seems to be hemodynamically mediated with relatively low blood pressure and volume depletion. However with her baseline stage 5 CKD is quite possible that kidney function will continue to decline and metabolic abnormality may not get corrected with conservative approach only. If hyperkalemia and metabolic acidosis does not improve with sodium bicarbonate and IV fluid and if kidney function continues to decline we may have to make a decision by tomorrow morning. And if patient and her decided to consider dialysis will have to get vascular surgery involved to put a tunnel catheter to start urgent dialysis. However with her baseline extremely frail condition, dialysis would not provide her with any quality of life and best would be to continue with conservative approach and if renal function continues to decline, resume discussion about hospice/palliative care. --change IV fluids to dextrose 5% with bicarbonate --encourage free water intake as she is getting hypernatremic --will review renal ultrasound --monitor renal function with daily renal panel --Dose medications for GFR less than 10 -- avoid nephrotoxins medications --Epoetin 39479 units subcu x1 dose Thank you for allowing me to participate in your patient's care. It was a pleasure to see Mrs. Chase.
--- NOTE | 2017-05-23 22:53 | DIAGNOSTIC IMAGING REPORT ---
RENAL ULTRASOUND CLINICAL HISTORY: Acute renal failure. COMPARISON STUDY: Renal ultrasound October 12, [address] of the abdomen and pelvis December 02, 2016. TECHNIQUE: Sonography of the kidneys and the urinary bladder was performed. FINDINGS: This exam is compromised by suboptimal penetration. Both kidneys are markedly atrophic and echogenic. The right measures 7.8 x 4 x 4.1 cm and the left measures 6.6 x 4.2 x 3.6 cm. There is no right hydronephrosis. There is possible mild left collecting system dilatation without definite hydronephrosis. IMPRESSION: 1. Study compromised by suboptimal penetration. No right hydronephrosis. Possible mild left collecting system dilatation without definite hydronephrosis. 2. Marked bilateral renal atrophy. Electronically signed by: Mckinley Winkler M.D. 05/23/2017 10:52 PM Dictated Date/Time: 05/23/2017 10:50 PM
[2017-05-23] MEDS ORDERED: NURSING VERBAL MED ORDER ONE (23:30)
[2017-05-23 23:59] VITALS: BP 150/85; PULSE 85; TEMP 36.8; O2SAT 100
[2017-05-24 00:16] LABS: BUN/CREATININE RATIO 14.2 (10-20); CALCIUM 8.5 mg/dl (8.5-10.1); CREATININE 6.07 mg/dl (0.60-1.20); POTASSIUM 4.9 mmol/L (3.5-5.1)
[2017-05-24 06:13] LABS: BASO % 0.5 %; BASO ABS # 0.05 K/uL (0-0.2); EOS % 7.4 %; HEMATOCRIT 24.7 % (37-47); IG% 2.4 %; LYMPH % 18.7 %; LYMPH ABS # 2.06 K/uL (1.2-3.4); MEAN CELL VOLUME 103.3 fL (80-100); MEAN CORPUSCULAR HEMOGLOBIN 33.1 pg (25-34); MEAN PLATELET VOLUME 9.3 fL (7.4-10.4); MONO % 5.8 %; NEUT % 65.2 %; PLATELET COUNT 114 K/uL (130-400); RED BLOOD COUNT 2.39 M/uL (4.2-5.4); WHITE BLOOD COUNT 11.03 K/uL (4.8-10.8)
[2017-05-24 06:53] LABS: BUN/CREATININE RATIO 14.1 (10-20); CALCIUM 8.3 mg/dl (8.5-10.1); CREATININE 5.87 mg/dl (0.60-1.20); POTASSIUM 4.6 mmol/L (3.5-5.1)
[2017-05-24 06:56] LABS: COMPLETE YES
[2017-05-24] MEDS ORDERED: DEXTROSE 5% 1000ML 1,000 ML IV SCH (07:00)
[2017-05-24 08:00] VITALS: BP 124/68; PULSE 85; TEMP 36.5; O2SAT 99
[2017-05-24] MEDS ORDERED: EPOETIN ALFA 20,000 UNITS/ML VIAL IV SCH (08:00)
[2017-05-24] MEDS: NYSTATIN POWDER 15GM BTL EXT SCH ×2 (08:04→20:42)
[2017-05-24] MEDS: CEROVITE ADV FORMULA TAB PO SCH (08:05)
[2017-05-24] MEDS: CARVEDILOL 12.5 MG TAB PO SCH (08:05)
[2017-05-24] MEDS: PANTOprazole SOD 40 MG TAB PO SCH (08:05)
[2017-05-24] MEDS: RASPBERRY SYRUP 5 ML UDP PO SCH (08:06)
[2017-05-24] MEDS: CHOLECALCIFEROL 1000 INTER.UNIT TAB PO SCH (08:06)
[2017-05-24] MEDS: VANCOMYCIN HCL 125 MG/2.5ML SOLN PO SCH (08:12)
[2017-05-24] MEDS ORDERED: SODIUM BICARBONATE 650 MG TAB PO SCH (09:00)
[2017-05-24] MEDS ORDERED: NURSING VERBAL MED ORDER ONE (11:15)
--- NOTE | 2017-05-24 11:15 | Nephrology Progress Note ---
Nephrology Progress Note Date of Service May 24, 2017. Chief Complaint F/U for acute kidney injury, hyperkalemia, hypernatremia and metabolic acidosis. Subjective Mrs Chase Was seen and examined in her room this morning with her at and caregiver at bedside. She remained asymptomatic. Vital signs stable, urine output started to improve, electrolyte abnormality improving. Review of Systems A complete review of systems was performed. Pertinent positives are noted above. All other systems are negative. Vital Signs Last 8 Hrs Date Time Temp Pulse Resp B/P (MAP) Pulse Ox O2 Delivery O2 Flow Rate FiO2 05/24/17 08:00 36.5 85 20 124/68 (86) 99 Nasal Cannula 2.0 05/24/17 04:00 Nasal Cannula 2.0 Last Recorded Weight Weight (Kilograms): 63.000 Physical Exam GENERAL: Elderly female, AAA x 3, frail, ill-appearing, not in any distress. NECK: Supple, no JVD. RESPIRATORY: Normal breathing efforts, no accessory muscle use, clear to auscultation bilaterally, no wheezes or rales. CARDIOVASCULAR: S1, S2 normal, rate rhythm regular. EXTREMITY: No lower extremity edema NEURO: speech fluent. 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 Laboratory Results Past 24 Hours 05/23/17 14:17 Red Blood Count 2.65, Mean Corpuscular Volume 105.7, Mean Corpuscular Hemoglobin 31.7, Mean Corpuscular Hemoglobin Concent 30.0, Mean Platelet Volume 9.4, Neutrophils (%) (Auto) 59.8, Lymphocytes (%) (Auto) 22.7, Monocytes (%) ( Auto) 4.3, Eosinophils (%) (Auto) 8.2, Basophils (%) (Auto) 0.5, Neutrophils # ( Auto) 6.18, Lymphocytes # (Auto) 2.35, Monocytes # (Auto) 0.44, Eosinophils # ( Auto) 0.85, Basophils # (Auto) 0.05 05/24/17 05:49 Red Blood Count 2.39, Mean Corpuscular Volume 103.3, Mean Corpuscular Hemoglobin 33.1, Mean Corpuscular Hemoglobin Concent 32.0, Mean Platelet Volume 9.3, Neutrophils (%) (Auto) 65.2, Lymphocytes (%) (Auto) 18.7, Monocytes (%) ( Auto) 5.8, Eosinophils (%) (Auto) 7.4, Basophils (%) (Auto) 0.5, Neutrophils # ( Auto) 7.20, Lymphocytes # (Auto) 2.06, Monocytes # (Auto) 0.64, Eosinophils # ( Auto) 0.82, Basophils # (Auto) 0.05 05/23/17 14:17 05/23/17 17:34 05/23/17 19:19 05/23/17 23:25 05/24/17 05:49 Test 05/23/17 13:35 05/23/17 14:17 05/23/17 17:34 05/23/17 17:42 Urine Color YELLOW Urine Appearance TURBID (CLEAR) Urine pH 6.0 (4.5-7.5) Urine Specific [place] 1.013 (1.000-1.030) Urine Protein 1+ (NEG) Urine Glucose (UA) NEG (NEG) Urine Ketones NEG (NEG) Urine Occult Blood 2+ (NEG) Urine Nitrite NEG (NEG) Urine Bilirubin NEG (NEG) Urine Urobilinogen NEG (NEG) Urine Leukocyte Esterase LARGE (NEG) Urine WBC (Auto) >30 /hpf (0-5) Urine RBC (Auto) 10-30 /hpf (0-4) Urine Hyaline Casts (Auto) 1-5 /lpf (0-5) Urine Epithelial Cells (Auto) 10-20 /lpf (0-5) Urine Bacteria (Auto) 1+ (NEG) Urine Crystals TRIPLE PHOSPHATE Urine Yeast (Auto) (NONE PRSENT) White Blood Count 10.33 K/uL (4.8-10.8) Red Blood Count 2.65 M/uL (4.2-5.4) Hemoglobin 8.4 g/dL (12.0-16.0) Hematocrit 28.0 % (37-47) Mean Corpuscular Volume 105.7 fL (80-100) Mean Corpuscular Hemoglobin 31.7 pg (25-34) Mean Corpuscular Hemoglobin Concent 30.0 g/dl (32-36) Platelet Count 132 K/uL (130-400) Mean Platelet Volume 9.4 fL (7.4-10.4) Neutrophils (%) (Auto) 59.8 % Lymphocytes (%) (Auto) 22.7 % Monocytes (%) (Auto) 4.3 % Eosinophils (%) (Auto) 8.2 % Basophils (%) (Auto) 0.5 % Neutrophils # (Auto) 6.18 K/uL (1.4-6.5) Lymphocytes # (Auto) 2.35 K/uL (1.2-3.4) Monocytes # (Auto) 0.44 K/uL (0.11-0.59) Eosinophils # (Auto) 0.85 K/uL (0-0.5) Basophils # (Auto) 0.05 K/uL (0-0.2) RDW Standard Deviation 55.9 fL (36.4-46.3) RDW Coefficient of Variation 14.8 % (11.5-14.5) Immature Granulocyte % (Auto) 4.5 % Immature Granulocyte # (Auto) 0.46 K/uL (0.00-0.02) Tear Drop Cells OCCASIONAL Anion Gap 5.0 mmol/L (3-11) 11.0 mmol/L (3-11) Est Creatinine Clear Calc Drug Dose 6.0 ml/min 5.9 ml/min Estimated GFR () 6.7 6.6 Estimated GFR (Non- 5.8 5.7 BUN/Creatinine Ratio 15.0 (10-20) 14.8 (10-20) Calcium Level 8.8 mg/dl (8.5-10.1) 9.1 mg/dl (8.5-10.1) Phosphorus Level 4.4 mg/dl (2.5-4.9) 4.0 mg/dl (2.5-4.9) Magnesium Level 2.6 mg/dl (1.8-2.4) mg/dl (1.8-2.4) Total Bilirubin 0.3 mg/dl (0.2-1) Direct Bilirubin < 0.1 mg/dl (0-0.2) Aspartate Amino Transf (AST/SGOT) 9 U/L (15-37) Alanine Aminotransferase (ALT/SGPT) 16 U/L (12-78) Alkaline Phosphatase 87 U/L (45-117) Total Protein 6.7 gm/dl (6.4-8.2) Albumin 3.0 gm/dl (3.4-5.0) Lipase 220 U/L (73-393) Bedside Glucose 155 mg/dl (70-90) Test 05/23/17 19:19 05/23/17 23:25 05/24/17 05:49 Prothrombin Time 11.0 SECONDS (9.0-12.0) Prothromb Time International Ratio 1.0 (0.9-1.1) Magnesium Level 2.7 mg/dl (1.8-2.4) Anion Gap 8.0 mmol/L (3-11) 10.0 mmol/L (3-11) Est Creatinine Clear Calc Drug Dose 6.1 ml/min 6.3 ml/min Estimated GFR () 6.8 7.1 Estimated GFR (Non- 5.9 6.1 BUN/Creatinine Ratio 14.2 (10-20) 14.1 (10-20) Calcium Level 8.5 mg/dl (8.5-10.1) 8.3 mg/dl (8.5-10.1) White Blood Count 11.03 K/uL (4.8-10.8) Red Blood Count 2.39 M/uL (4.2-5.4) Hemoglobin 7.9 g/dL (12.0-16.0) Hematocrit 24.7 % (37-47) Mean Corpuscular Volume 103.3 fL (80-100) Mean Corpuscular Hemoglobin 33.1 pg (25-34) Mean Corpuscular Hemoglobin Concent 32.0 g/dl (32-36) Platelet Count 114 K/uL (130-400) Mean Platelet Volume 9.3 fL (7.4-10.4) Neutrophils (%) (Auto) 65.2 % Lymphocytes (%) (Auto) 18.7 % Monocytes (%) (Auto) 5.8 % Eosinophils (%) (Auto) 7.4 % Basophils (%) (Auto) 0.5 % Neutrophils # (Auto) 7.20 K/uL (1.4-6.5) Lymphocytes # (Auto) 2.06 K/uL (1.2-3.4) Monocytes # (Auto) 0.64 K/uL (0.11-0.59) Eosinophils # (Auto) 0.82 K/uL (0-0.5) Basophils # (Auto) 0.05 K/uL (0-0.2) RDW Standard Deviation 53.4 fL (36.4-46.3) RDW Coefficient of Variation 14.2 % (11.5-14.5) Immature Granulocyte % (Auto) 2.4 % Immature Granulocyte # (Auto) 0.26 K/uL (0.00-0.02) Red Blood Cell Morphology Unremarkable Allergies Coded Allergies: Sulfa Antibiotics (Verified Allergy, Intermediate, BODY SWELLING,NAUSEA AND VOMITNG, 05/23/17) Penicillins (Verified Allergy, Unknown, Tolerates Primaxin, does NOT tolerate ZOSYN, 05/23/17) PER PCP RECORDS Medications Current Inpatient Medications Medications (Trade) Dose Ordered Sig/Helder Route Start Time Stop Time Status Last Admin Dose Admin Heparin Sodium (Porcine) (Heparin Sq 5000 Unit/0.5ml) 5,000 unit Q12H SQ 05/23/17 21:00 06/22/17 20:59 Future Hold Acetaminophen (Tylenol Tab) 650 mg Q4H PRN PO 05/23/17 16:30 06/22/17 16:29 Al Hydrox/Mg Hydrox/Simethicone (Maalox Max Susp) 15 ml Q4H PRN PO 05/23/17 16:30 06/22/17 16:29 Magnesium Hydroxide (Milk Of Magnesia Susp) 30 ml Q12H PRN PO 05/23/17 16:30 06/22/17 16:29 Ondansetron HCl (Zofran Inj) 4 mg Q6H PRN IV 05/23/17 16:30 06/22/17 16:29 Polyethylene (Miralax Powder Packet) 17 gm DAILY PRN PO 05/23/17 16:30 06/22/17 16:29 Ertapenem 500 mg/ Sodium Chloride 55 ml @ 100 mls/hr DAILY@2000 IV 05/23/17 20:00 05/28/17 19:59 05/23/17 20:49 100 MLS/HR Aspirin (Ecotrin Tab) 81 mg QPM PO 05/23/17 21:00 06/22/17 20:59 05/23/17 20:57 81 MG Atorvastatin Calcium (Lipitor Tab) 80 mg QPM PO 05/23/17 21:00 06/22/17 20:59 05/23/17 20:58 80 MG Carvedilol (Coreg Tab) 12.5 mg QAM PO 05/24/17 09:00 06/23/17 08:59 05/24/17 08:05 12.5 MG Cholecalciferol (Vitamin D Tab) 1,000 inter.unit DAILY PO 05/24/17 09:00 06/23/17 08:59 05/24/17 08:06 1,000 INTER.UNIT Clopidogrel Bisulfate (plAVix TAB) 75 mg QPM PO 05/23/17 21:00 06/22/17 20:59 05/23/17 20:58 75 MG Lorazepam (Ativan Tab) 0.5 mg Q6H PRN PO 05/23/17 16:30 06/22/17 16:29 Multivitamins/ Minerals (Multivitamin W/ Minerals Tab) 1 tab QAM PO 05/24/17 09:00 06/23/17 08:59 05/24/17 08:05 1 TAB Nystatin (Mycostatin Powder) 1 appln BID EXT 05/23/17 21:00 06/22/17 20:59 05/24/17 08:04 1 APPLN Ondansetron HCl (Zofran Odt) 4 mg Q6H PRN PO 05/23/17 16:30 06/22/17 16:29 Pantoprazole Sodium (Protonix Tab) 40 mg QAM PO 05/24/17 09:00 06/23/17 08:59 05/24/17 08:05 40 MG Sodium Bicarbonate (Sodium Bicarbonate Tab) 650 mg QAM PO 05/24/17 09:00 06/23/17 08:59 Vancomycin HCl (Vancomycin Oral Soln) 125 mg QAM PO 05/24/17 09:00 06/03/17 08:59 05/24/17 08:12 125 MG Febuxostat (Uloric) 40 mg DAILY@1200 PO 05/24/17 12:00 06/23/17 11:59 Raspberry (Raspberry Syrup 5ml Cup) 5 ml Taper QAM PO 05/24/17 09:00 07/08/17 08:59 05/24/17 08:06 5 ML Heparin Sodium (Porcine) (Heparin 10 Unit/ ml 5 ml Flush) 5 ml PRN PRN FLUSH 05/24/17 00:15 1/7/18 00:14 Dextrose 1,000 ml @ 100 mls/hr Q10H IV 05/24/17 07:00 06/23/17 06:59 05/24/17 09:18 100 MLS/HR Epoetin Buck (Procrit Inj) 20,000 units 0800 IV 05/24/17 08:00 05/24/17 16:00 Loteprednol Etabonate (Lotemax 0.5%) 1 drops DAILY OPB 05/24/17 12:00 06/23/17 11:59 Impression Mrs. Johns is a 81-year-old female with multiple significant comorbidities including CHF with ejection fraction 20-25%, hypertension, advanced CKD, recurrent urinary tract infection, obstructive uropathy and recurrent history of acute kidney injury admitted with acute kidney injury, hyperkalemia, metabolic acidosis and urinary tract infection. She has been getting IV fluid and Invanz. Has chronic anemia with advanced CKD and secondary hyperparathyroidism. Has history of stage 5 chronic kidney disease,Baseline creatinine has been 3.0-3.5, history of bilateral hydronephrosis and recurrent acute kidney injury. Previously had bilateral ureteral stent which was removed in November 2016. Patient and family previously decided not to consider renal replacement therapy and being managed by conservative approach only. However as per Dr. Cortez since note mentioned he might consider dialysis if that is unavoidable in the setting of acute kidney injury. Renal ultrasound was ordered stat but still pending. Acute kidney injury seems to be hemodynamically mediated with relatively low blood pressure and volume depletion. However with her baseline stage 5 CKD is quite possible that kidney function will continue to decline and metabolic abnormality may not get corrected with conservative approach only. If hyperkalemia and metabolic acidosis does not improve with sodium bicarbonate and IV fluid and if kidney function continues to decline we may have to make a decision by tomorrow morning. And if patient and her decided to consider dialysis will have to get vascular surgery involved to put a tunnel catheter to start urgent dialysis. However with her baseline extremely frail condition, dialysis would not provide her with any quality of life and best would be to continue with conservative approach and if renal function continues to decline, resume discussion about hospice/palliative care. Renal ultrasound with no significant postrenal obstruction Recommendations --change IV fluids to D5W at 100 mL/hour --encourage free water intake --monitor renal function with daily renal panel --Dose medications for GFR less than 10 -- avoid nephrotoxins medications --Epoetin [id number] units subcu x1 dose given on 05/24/2017 Will follow
[2017-05-24] MEDS ORDERED: EPOETIN ALFA 20,000 UNITS/ML VIAL SQ ONE (12:00)
[2017-05-24 12:27] VITALS: BP 136/74; PULSE 86; TEMP 36.9; O2SAT 100
--- NOTE | 2017-05-24 13:34 | Progress Note ---
Subjective Date of Service: May 24, 2017. Subjective Pt was seen, not present, was in no distress, maybe remembering me from previous stay Problem List Medical Problems: (1) Acute kidney failure Status: Acute (2) Acute on chronic kidney failure Status: Acute (3) Acute renal failure Status: Acute (4) Acute renal failure Status: Acute (5) Altered mental status Status: Acute (6) Altered mental status Status: Acute (7) ARF (acute renal failure) Status: Acute (8) CRD (chronic renal disease) Status: Acute (9) Dehydration Status: Acute (10) Dehydration Status: Acute (11) Diverticulitis Status: Acute (12) Fall Status: Acute (13) Fever Status: Acute (14) Hyperkalemia Status: Acute (15) Hyperkalemia Status: Acute (16) Hyperkalemia Status: Acute (17) Hypomagnesemia Status: Acute (18) PICC (peripherally inserted central catheter) in place Status: Acute (19) Pneumonia Status: Acute (20) Renal failure Status: Acute (21) Renal insufficiency Status: Acute (22) Renal insufficiency Status: Acute (23) Sepsis Status: Acute (24) Sepsis Status: Acute (25) Uremia Status: Acute (26) UTI (urinary tract infection) Status: Acute (27) UTI (urinary tract infection) Status: Acute (28) UTI (urinary tract infection) Status: Acute (29) Weakness Status: Acute (30) Weakness Status: Acute (31) Weakness Status: Acute (32) Weakness Status: Acute (33) Weakness Status: Acute Review of Systems Constitutional: + weakness, No fever, No chills Eyes: No worsening of vision, No eye pain Respiratory: No cough, No shortness of breath Cardiac: No chest pain, No edema Abdomen: No pain, No nausea, No vomiting, No diarrhea Female : No dysuria, No urinary frequency Neurologic: + memory loss, + weakness, + balance problems Psychiatric: No depression symptoms, No anhedonism Objective Vital Signs Date Time Temp Pulse Resp B/P (MAP) Pulse Ox O2 Delivery O2 Flow Rate FiO2 05/24/17 12:27 36.9 86 18 136/74 (94) 100 Nasal Cannula 2.0 05/24/17 08:00 Nasal Cannula 2.0 05/24/17 08:00 36.5 85 20 124/68 (86) 99 Nasal Cannula 2.0 12/8/17 04:00 Nasal Cannula 2.0 05/23/17 23:59 Nasal Cannula 2.0 05/23/17 23:59 36.8 85 14 150/85 (106) 100 Nasal Cannula 2.0 05/23/17 20:00 36.6 85 17 139/61 (87) 100 Nasal Cannula 2.0 05/23/17 20:00 Nasal Cannula 05/23/17 20:00 Nasal Cannula 05/23/17 19:09 36.8 86 17 145/72 100 Nasal Cannula 2.0 05/23/17 17:36 89 18 134/57 97 Room Air 05/23/17 15:25 73 18 104/59 95 Room Air 05/23/17 14:22 73 18 113/55 99 Room Air Physical Exam General Appearance: WD/WN, no apparent distress Eyes: normal inspection, PERRL Respiratory/Chest: chest non-tender, lungs clear, normal breath sounds Cardiovascular: regular rate, rhythm, no murmur Abdomen: normal bowel sounds, non tender, soft Extremities: no pedal edema, no calf tenderness Laboratory Results Last 24 Hours Test 05/23/17 13:35 05/23/17 14:17 05/23/17 17:34 05/23/17 17:42 Urine Color YELLOW Urine Appearance TURBID Urine pH 6.0 Urine Specific [place] 1.013 Urine Protein 1+ Urine Glucose (UA) NEG Urine Ketones NEG Urine Occult Blood 2+ Urine Nitrite NEG Urine Bilirubin NEG Urine Urobilinogen NEG Urine Leukocyte Esterase LARGE Urine WBC (Auto) >30 /hpf Urine RBC (Auto) 10-30 /hpf Urine Hyaline Casts (Auto) 1-5 /lpf Urine Epithelial Cells (Auto) 10-20 /lpf Urine Bacteria (Auto) 1+ Urine Crystals TRIPLE PHOSPHATE Urine Yeast (Auto) White Blood Count 10.33 K/uL Red Blood Count 2.65 M/uL Hemoglobin 8.4 g/dL Hematocrit 28.0 % Mean Corpuscular Volume 105.7 fL Mean Corpuscular Hemoglobin 31.7 pg Mean Corpuscular Hemoglobin Concent 30.0 g/dl Platelet Count 132 K/uL Mean Platelet Volume 9.4 fL Neutrophils (%) (Auto) 59.8 % Lymphocytes (%) (Auto) 22.7 % Monocytes (%) (Auto) 4.3 % Eosinophils (%) (Auto) 8.2 % Basophils (%) (Auto) 0.5 % Neutrophils # (Auto) 6.18 K/uL Lymphocytes # (Auto) 2.35 K/uL Monocytes # (Auto) 0.44 K/uL Eosinophils # (Auto) 0.85 K/uL Basophils # (Auto) 0.05 K/uL RDW Standard Deviation 55.9 fL RDW Coefficient of Variation 14.8 % Immature Granulocyte % (Auto) 4.5 % Immature Granulocyte # (Auto) 0.46 K/uL Tear Drop Cells OCCASIONAL Sodium Level 144 mmol/L 149 mmol/L Potassium Level 6.5 mmol/L mmol/L Chloride Level 119 mmol/L 121 mmol/L Carbon Dioxide Level 20 mmol/L 17 mmol/L Anion Gap 5.0 mmol/L 11.0 mmol/L Blood Urea Nitrogen 92 mg/dl 92 mg/dl Creatinine 6.18 mg/dl 6.21 mg/dl Est Creatinine Clear Calc Drug Dose 6.0 ml/min 5.9 ml/min Estimated GFR () 6.7 6.6 Estimated GFR (Non- 5.8 5.7 BUN/Creatinine Ratio 15.0 14.8 Random Glucose 122 mg/dl 138 mg/dl Calcium Level 8.8 mg/dl 9.1 mg/dl Phosphorus Level 4.4 mg/dl 4.0 mg/dl Magnesium Level 2.6 mg/dl mg/dl Total Bilirubin 0.3 mg/dl Direct Bilirubin < 0.1 mg/dl Aspartate Amino Transf (AST/SGOT) 9 U/L Alanine Aminotransferase (ALT/SGPT) 16 U/L Alkaline Phosphatase 87 U/L Total Protein 6.7 gm/dl Albumin 3.0 gm/dl Lipase 220 U/L Bedside Glucose 155 mg/dl Test 05/23/17 19:19 05/23/17 23:25 05/24/17 05:49 Prothrombin Time 11.0 SECONDS Prothromb Time International Ratio 1.0 Potassium Level 5.5 mmol/L 4.9 mmol/L 4.6 mmol/L Magnesium Level 2.7 mg/dl Sodium Level 150 mmol/L 153 mmol/L Chloride Level 121 mmol/L 120 mmol/L Carbon Dioxide Level 21 mmol/L 23 mmol/L Anion Gap 8.0 mmol/L 10.0 mmol/L Blood Urea Nitrogen 85 mg/dl 83 mg/dl Creatinine 6.07 mg/dl 5.87 mg/dl Est Creatinine Clear Calc Drug Dose 6.1 ml/min 6.3 ml/min Estimated GFR () 6.8 7.1 Estimated GFR (Non- 5.9 6.1 BUN/Creatinine Ratio 14.2 14.1 Random Glucose 110 mg/dl 109 mg/dl Calcium Level 8.5 mg/dl 8.3 mg/dl White Blood Count 11.03 K/uL Red Blood Count 2.39 M/uL Hemoglobin 7.9 g/dL Hematocrit 24.7 % Mean Corpuscular Volume 103.3 fL Mean Corpuscular Hemoglobin 33.1 pg Mean Corpuscular Hemoglobin Concent 32.0 g/dl Platelet Count 114 K/uL Mean Platelet Volume 9.3 fL Neutrophils (%) (Auto) 65.2 % Lymphocytes (%) (Auto) 18.7 % Monocytes (%) (Auto) 5.8 % Eosinophils (%) (Auto) 7.4 % Basophils (%) (Auto) 0.5 % Neutrophils # (Auto) 7.20 K/uL Lymphocytes # (Auto) 2.06 K/uL Monocytes # (Auto) 0.64 K/uL Eosinophils # (Auto) 0.82 K/uL Basophils # (Auto) 0.05 K/uL RDW Standard Deviation 53.4 fL RDW Coefficient of Variation 14.2 % Immature Granulocyte % (Auto) 2.4 % Immature Granulocyte # (Auto) 0.26 K/uL Red Blood Cell Morphology Unremarkable Assessment and Plan An 81-year-old white female with hyperkalemia and acute renal failure Acute on chronic kidney failure. not anuric, will have ivf managed by nephrology, concerns in the past for not wanting dialysis may now be changed by family Hyperkalemia secondary to Acute on chronic kidney failure, has improved after initial treatment Possible recurrent urinary tract infection, renal U/S without obstruction, History of stent in bilateral ureters, removed in December 2016. Anemia of chronic disease. Hypertension and Congestive heart failure, both systolic and diastolic, Ischemic cardiomyopathy with EF 30-40% with AICD in place, has be stable despite fluid resuscitation. History of recurrent Clostridium difficile. no diarrhea, on chronic suppression with oral vancomycin.
[2017-05-24] MEDS: LOTEPREDNOL ETABONATE 0.5% OPB SCH (13:42)
[2017-05-24] MEDS: FEBUXOSTAT 40 MG TAB PO SCH (13:42)
[2017-05-24 15:14] VITALS: BP 136/74; PULSE 86; TEMP 36.9; O2SAT 100
[2017-05-24 16:11] LABS: BLOOD UREA NITROGEN 77 mg/dl (7-18); BUN/CREATININE RATIO 14.3 (10-20); CALCIUM 7.6 mg/dl (8.5-10.1); CARBON DIOXIDE 24 mmol/L (21-32); CHLORIDE 113 mmol/L (98-107); CREATININE 5.39 mg/dl (0.60-1.20); GLUCOSE 93 mg/dl (70-99); SODIUM 144 mmol/L (136-145)
[2017-05-24] MEDS: ATORVASTATIN 40 MG TAB PO SCH (20:43)
[2017-05-24] MEDS: ASPIRIN 81 MG ECTAB PO SCH (20:43)
[2017-05-24] MEDS: CLOPIDOGREL BISULFATE 75 MG TAB PO SCH (20:43)
[2017-05-24] MEDS: SODIUM CHLOR 0.9% IV SCH (20:46)
[2017-05-24] MEDS: ERTAPENEM IV SCH (20:46)
[2017-05-24] MEDS: AD VAN IV SCH (20:46)
[2017-05-25] VITALS (7 sets, daily range): BP systolic 122–138; BP diastolic 65–76; PULSE 80–88; TEMP 36.1–37.1; O2SAT 99–100
[2017-05-25 05:30] LABS: HEMATOCRIT 23.6 % (37-47); MEAN CELL VOLUME 103.5 fL (80-100); MEAN CORPUSCULAR HEMOGLOBIN 32.5 pg (25-34); MEAN CORPUSCULAR HGB CONC 31.4 g/dl (32-36); RED BLOOD COUNT 2.28 M/uL (4.2-5.4)
[2017-05-25 06:15] LABS: BUN/CREATININE RATIO 13.8 (10-20); CALCIUM 7.8 mg/dl (8.5-10.1); CREATININE 5.29 mg/dl (0.60-1.20); POTASSIUM 4.4 mmol/L (3.5-5.1)
[2017-05-25 06:57] LABS: PLATELET COUNT 99 K/uL (130-400)
[2017-05-25 07:00] LABS: BASO % 0.4 %; BASO ABS # 0.04 K/uL (0-0.2); COMPLETE YES; EOS % 7.5 %; LYMPH % 22.6 %; LYMPH ABS # 2.58 K/uL (1.2-3.4); NEUT % 60.5 %; PLT ESTIMATE NORMAL
[2017-05-25] MEDS: LOTEPREDNOL ETABONATE 0.5% OPB SCH (09:00)
[2017-05-25] MEDS: CEROVITE ADV FORMULA TAB PO SCH (09:32)
[2017-05-25] MEDS: PANTOprazole SOD 40 MG TAB PO SCH (09:32)
[2017-05-25] MEDS: CHOLECALCIFEROL 1000 INTER.UNIT TAB PO SCH (09:33)
[2017-05-25] MEDS: CARVEDILOL 12.5 MG TAB PO SCH (09:33)
[2017-05-25] MEDS: NYSTATIN POWDER 15GM BTL EXT SCH ×2 (09:50→20:33)
--- NOTE | 2017-05-25 10:46 | Nephrology Progress Note ---
Nephrology Progress Note Date of Service May 25, 2017. Chief Complaint F/U for acute kidney injury, hyperkalemia, hypernatremia and metabolic acidosis. Subjective Mrs Chase Was seen and examined in her room this morning with her caregiver at bedside. She remained asymptomatic. Vital signs stable, urine output started to improve, electrolyte abnormality improving. She was irritable and using cursing words and just wants to go home. Review of Systems A complete review of systems was performed. Pertinent positives are noted above. All other systems are negative. Vital Signs Last 8 Hrs Date Time Temp Pulse Resp B/P (MAP) Pulse Ox O2 Delivery O2 Flow Rate FiO2 05/25/17 08:04 36.4 86 20 138/76 (96) 99 Last Recorded Weight Weight (Kilograms): 43.200 Physical Exam GENERAL: Elderly female, AAA x 3, irritable, frail, ill-appearing, not in any distress. NECK: Supple, no JVD. RESPIRATORY: Normal breathing efforts, no accessory muscle use, clear to auscultation bilaterally, no wheezes or rales. CARDIOVASCULAR: S1, S2 normal, rate rhythm regular. EXTREMITY: No lower extremity edema NEURO: speech fluent. 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 Laboratory Results Past 24 Hours 05/25/17 05:21 Red Blood Count 2.28, Mean Corpuscular Volume 103.5, Mean Corpuscular Hemoglobin 32.5, Mean Corpuscular Hemoglobin Concent 31.4, Mean Platelet Volume 9.0, Neutrophils (%) (Auto) 60.5, Lymphocytes (%) (Auto) 22.6, Monocytes (%) ( Auto) 7.0, Eosinophils (%) (Auto) 7.5, Basophils (%) (Auto) 0.4, Neutrophils # ( Auto) 6.89, Lymphocytes # (Auto) 2.58, Monocytes # (Auto) 0.80, Eosinophils # ( Auto) 0.86, Basophils # (Auto) 0.04 05/24/17 14:58 05/24/17 16:35 05/25/17 05:21 Test 05/24/17 14:58 05/25/17 05:21 Anion Gap 7.0 mmol/L (3-11) 6.0 mmol/L (3-11) Est Creatinine Clear Calc Drug Dose 6.8 ml/min 7.0 ml/min Estimated GFR () 7.9 8.1 Estimated GFR (Non- 6.8 6.9 BUN/Creatinine Ratio 14.3 (10-20) 13.8 (10-20) Calcium Level 7.6 mg/dl (8.5-10.1) 7.8 mg/dl (8.5-10.1) White Blood Count 11.40 K/uL (4.8-10.8) Red Blood Count 2.28 M/uL (4.2-5.4) Hemoglobin 7.4 g/dL (12.0-16.0) Hematocrit 23.6 % (37-47) Mean Corpuscular Volume 103.5 fL (80-100) Mean Corpuscular Hemoglobin 32.5 pg (25-34) Mean Corpuscular Hemoglobin Concent 31.4 g/dl (32-36) Platelet Count 99 K/uL (130-400) Mean Platelet Volume 9.0 fL (7.4-10.4) Neutrophils (%) (Auto) 60.5 % Lymphocytes (%) (Auto) 22.6 % Monocytes (%) (Auto) 7.0 % Eosinophils (%) (Auto) 7.5 % Basophils (%) (Auto) 0.4 % Neutrophils # (Auto) 6.89 K/uL (1.4-6.5) Lymphocytes # (Auto) 2.58 K/uL (1.2-3.4) Monocytes # (Auto) 0.80 K/uL (0.11-0.59) Eosinophils # (Auto) 0.86 K/uL (0-0.5) Basophils # (Auto) 0.04 K/uL (0-0.2) RDW Standard Deviation 53.9 fL (36.4-46.3) RDW Coefficient of Variation 14.5 % (11.5-14.5) Immature Granulocyte % (Auto) 2.0 % Immature Granulocyte # (Auto) 0.23 K/uL (0.00-0.02) Platelet Estimate NORMAL Basophilic Stippling 1+ Allergies Coded Allergies: Sulfa Antibiotics (Verified Allergy, Intermediate, BODY SWELLING,NAUSEA AND VOMITNG, 05/23/17) Penicillins (Verified Allergy, Unknown, Tolerates Primaxin, does NOT tolerate ZOSYN, 05/23/17) PER PCP RECORDS Medications Current Inpatient Medications Medications (Trade) Dose Ordered Sig/Helder Route Start Time Stop Time Status Last Admin Dose Admin Heparin Sodium (Porcine) (Heparin Sq 5000 Unit/0.5ml) 5,000 unit Q12H SQ 05/23/17 21:00 06/22/17 20:59 Future Hold Acetaminophen (Tylenol Tab) 650 mg Q4H PRN PO 05/23/17 16:30 06/22/17 16:29 Al Hydrox/Mg Hydrox/Simethicone (Maalox Max Susp) 15 ml Q4H PRN PO 05/23/17 16:30 06/22/17 16:29 Magnesium Hydroxide (Milk Of Magnesia Susp) 30 ml Q12H PRN PO 05/23/17 16:30 06/22/17 16:29 Ondansetron HCl (Zofran Inj) 4 mg Q6H PRN IV 05/23/17 16:30 06/22/17 16:29 Polyethylene (Miralax Powder Packet) 17 gm DAILY PRN PO 05/23/17 16:30 06/22/17 16:29 Ertapenem 500 mg/ Sodium Chloride 55 ml @ 100 mls/hr DAILY@2000 IV 05/23/17 20:00 05/28/17 19:59 05/24/17 20:46 100 MLS/HR Aspirin (Ecotrin Tab) 81 mg QPM PO 05/23/17 21:00 06/22/17 20:59 05/24/17 20:43 81 MG Atorvastatin Calcium (Lipitor Tab) 80 mg QPM PO 05/23/17 21:00 06/22/17 20:59 05/24/17 20:43 80 MG Carvedilol (Coreg Tab) 12.5 mg QAM PO 05/24/17 09:00 06/23/17 08:59 05/24/17 08:05 12.5 MG Cholecalciferol (Vitamin D Tab) 1,000 inter.unit DAILY PO 05/24/17 09:00 06/23/17 08:59 05/24/17 08:06 1,000 INTER.UNIT Clopidogrel Bisulfate (plAVix TAB) 75 mg QPM PO 05/23/17 21:00 06/22/17 20:59 05/24/17 20:43 75 MG Lorazepam (Ativan Tab) 0.5 mg Q6H PRN PO 05/23/17 16:30 06/22/17 16:29 Multivitamins/ Minerals (Multivitamin W/ Minerals Tab) 1 tab QAM PO 05/24/17 09:00 06/23/17 08:59 05/24/17 08:05 1 TAB Nystatin (Mycostatin Powder) 1 appln BID EXT 05/23/17 21:00 06/22/17 20:59 05/24/17 20:42 1 APPLN Ondansetron HCl (Zofran Odt) 4 mg Q6H PRN PO 05/23/17 16:30 06/22/17 16:29 Pantoprazole Sodium (Protonix Tab) 40 mg QAM PO 05/24/17 09:00 06/23/17 08:59 05/24/17 08:05 40 MG Vancomycin HCl (Vancomycin Oral Soln) 125 mg QAM PO 05/24/17 09:00 06/03/17 08:59 05/24/17 08:12 125 MG Febuxostat (Uloric) 40 mg DAILY@1200 PO 05/24/17 12:00 06/23/17 11:59 05/24/17 13:42 40 MG Raspberry (Raspberry Syrup 5ml Cup) 5 ml Taper QAM PO 05/24/17 09:00 07/08/17 08:59 05/24/17 08:06 5 ML Heparin Sodium (Porcine) (Heparin 10 Unit/ ml 5 ml Flush) 5 ml PRN PRN FLUSH 05/24/17 00:15 06/23/17 00:14 05/24/17 21:33 5 ML Loteprednol Etabonate (Lotemax 0.5%) 1 drops DAILY OPB 05/24/17 12:00 06/23/17 11:59 05/24/17 13:42 1 DROPS Impression Mrs. Johns is a 81-year-old female with multiple significant comorbidities including CHF with ejection fraction 20-25%, hypertension, advanced CKD, recurrent urinary tract infection, obstructive uropathy and recurrent history of acute kidney injury admitted with acute kidney injury, hyperkalemia, metabolic acidosis and urinary tract infection. She has been getting IV fluid and Invanz. Has chronic anemia with advanced CKD and secondary hyperparathyroidism. Has history of stage 5 chronic kidney disease,Baseline creatinine has been 3.0-3.5, history of bilateral hydronephrosis and recurrent acute kidney injury. Previously had bilateral ureteral stent which was removed in November 2016. Patient and family previously decided not to consider renal replacement therapy and being managed by conservative approach only. However as per Dr. Cortez since note mentioned he might consider dialysis if that is unavoidable in the setting of acute kidney injury. Renal ultrasound was ordered stat but still pending. Acute kidney injury seems to be hemodynamically mediated with relatively low blood pressure and volume depletion. However with her baseline stage 5 CKD is quite possible that kidney function will continue to decline and metabolic abnormality may not get corrected with conservative approach only. If hyperkalemia and metabolic acidosis does not improve with sodium bicarbonate and IV fluid and if kidney function continues to decline we may have to make a decision by tomorrow morning. And if patient and her decided to consider dialysis will have to get vascular surgery involved to put a tunnel catheter to start urgent dialysis. However with her baseline extremely frail condition, dialysis would not provide her with any quality of life and best would be to continue with conservative approach and if renal function continues to decline, resume discussion about hospice/palliative care. Renal ultrasound with no significant postrenal obstruction Recommendations -Discontinue IV fluid --encourage free water intake --monitor renal function with daily renal panel --Dose medications for GFR less than 10 -- avoid nephrotoxins medications --Epoetin 51807 units subcu x1 dose given on 05/24/2017 Will follow
[2017-05-25] MEDS: RASPBERRY SYRUP 5 ML UDP PO SCH (10:56)
[2017-05-25] MEDS: VANCOMYCIN HCL 125 MG/2.5ML SOLN PO SCH (10:56)
--- NOTE | 2017-05-25 11:55 | Progress Note ---
Subjective Date of Service: May 25, 2017. Subjective Pt was agitated this am while being cleaned due to stool incontinence, she was focused on that and did not redirect to answer any questions Problem List Medical Problems: (1) Acute kidney failure Status: Acute (2) Acute on chronic kidney failure Status: Acute (3) Acute renal failure Status: Acute (4) Acute renal failure Status: Acute (5) Altered mental status Status: Acute (6) Altered mental status Status: Acute (7) ARF (acute renal failure) Status: Acute (8) CRD (chronic renal disease) Status: Acute (9) Dehydration Status: Acute (10) Dehydration Status: Acute (11) Diverticulitis Status: Acute (12) Fall Status: Acute (13) Fever Status: Acute (14) Hyperkalemia Status: Acute (15) Hyperkalemia Status: Acute (16) Hyperkalemia Status: Acute (17) Hypomagnesemia Status: Acute (18) PICC (peripherally inserted central catheter) in place Status: Acute (19) Pneumonia Status: Acute (20) Renal failure Status: Acute (21) Renal insufficiency Status: Acute (22) Renal insufficiency Status: Acute (23) Sepsis Status: Acute (24) Sepsis Status: Acute (25) Uremia Status: Acute (26) UTI (urinary tract infection) Status: Acute (27) UTI (urinary tract infection) Status: Acute (28) UTI (urinary tract infection) Status: Acute (29) Weakness Status: Acute (30) Weakness Status: Acute (31) Weakness Status: Acute (32) Weakness Status: Acute (33) Weakness Status: Acute Review of Systems Constitutional: + weakness, + fatigue Neurologic: + memory loss, + weakness Psychiatric: + anxiety, + problem reported (agitation) Objective Vital Signs Date Time Temp Pulse Resp B/P (MAP) Pulse Ox O2 Delivery O2 Flow Rate FiO2 05/25/17 08:04 36.4 86 20 138/76 (96) 99 05/25/17 08:00 99 Nasal Cannula 1.0 05/25/17 00:30 Nasal Cannula 1.0 05/25/17 00:14 36.1 80 18 137/65 (89) 99 Nasal Cannula 1.0 05/24/17 16:00 Nasal Cannula 2.0 05/24/17 15:14 36.9 86 20 136/74 (94) 100 05/24/17 12:27 Nasal Cannula 2.0 05/24/17 12:27 36.9 86 18 136/74 (94) 100 Nasal Cannula 2.0 Physical Exam General Appearance: WD/WN, + moderate distress Eyes: normal inspection, PERRL, sclerae normal Neck: supple Respiratory/Chest: chest non-tender, lungs clear, normal breath sounds Cardiovascular: regular rate, rhythm, no murmur Abdomen: normal bowel sounds, non tender, soft Extremities: no pedal edema, no calf tenderness Neurologic/Psychiatric: alert, oriented x 3 Laboratory Results Last 24 Hours Test 05/24/17 14:58 05/24/17 16:35 05/25/17 05:21 Sodium Level 144 mmol/L 141 mmol/L Potassium Level mmol/L 4.5 mmol/L 4.4 mmol/L Chloride Level 113 mmol/L 111 mmol/L Carbon Dioxide Level 24 mmol/L 24 mmol/L Anion Gap 7.0 mmol/L 6.0 mmol/L Blood Urea Nitrogen 77 mg/dl 73 mg/dl Creatinine 5.39 mg/dl 5.29 mg/dl Est Creatinine Clear Calc Drug Dose 6.8 ml/min 7.0 ml/min Estimated GFR () 7.9 8.1 Estimated GFR (Non- 6.8 6.9 BUN/Creatinine Ratio 14.3 13.8 Random Glucose 93 mg/dl 91 mg/dl Calcium Level 7.6 mg/dl 7.8 mg/dl White Blood Count 11.40 K/uL Red Blood Count 2.28 M/uL Hemoglobin 7.4 g/dL Hematocrit 23.6 % Mean Corpuscular Volume 103.5 fL Mean Corpuscular Hemoglobin 32.5 pg Mean Corpuscular Hemoglobin Concent 31.4 g/dl Platelet Count 99 K/uL Mean Platelet Volume 9.0 fL Neutrophils (%) (Auto) 60.5 % Lymphocytes (%) (Auto) 22.6 % Monocytes (%) (Auto) 7.0 % Eosinophils (%) (Auto) 7.5 % Basophils (%) (Auto) 0.4 % Neutrophils # (Auto) 6.89 K/uL Lymphocytes # (Auto) 2.58 K/uL Monocytes # (Auto) 0.80 K/uL Eosinophils # (Auto) 0.86 K/uL Basophils # (Auto) 0.04 K/uL RDW Standard Deviation 53.9 fL RDW Coefficient of Variation 14.5 % Immature Granulocyte % (Auto) 2.0 % Immature Granulocyte # (Auto) 0.23 K/uL Platelet Estimate NORMAL Basophilic Stippling 1+ Assessment and Plan An 81-year-old white female with hyperkalemia and acute renal failure Acute on chronic kidney failure. not anuric, nephrology is following, concerns in the past for not wanting dialysis may now be changed by family Hyperkalemia secondary to Acute on chronic kidney failure, continues to be normal after initial treatment Possible recurrent urinary tract infection, renal U/S without obstruction, History of stent in bilateral ureters, removed in December 2016, cultures show no growth Anemia of chronic disease, Dr Haywood has given EPO 05/24. she has dropped but no signs of active bleeding at this time, last iron level october 01 was normal very mild thrombocytopenia will need to be followed, heparin for dvt held Hypertension and Congestive heart failure, both systolic and diastolic, Ischemic cardiomyopathy with EF 30-40% with AICD in place, has be stable despite fluid resuscitation. History of recurrent Clostridium difficile. no diarrhea, on chronic suppression with oral vancomycin evidence of mild malnutrition, calcium is low but does correct toward normal range with low albumen calculated.
[2017-05-25] MEDS: FEBUXOSTAT 40 MG TAB PO SCH (13:10)
[2017-05-25] MEDS: AD VAN IV SCH (20:37)
[2017-05-25] MEDS: SODIUM CHLOR 0.9% IV SCH (20:37)
[2017-05-25] MEDS: ERTAPENEM IV SCH (20:37)
[2017-05-25] MEDS: CLOPIDOGREL BISULFATE 75 MG TAB PO SCH (20:38)
[2017-05-25] MEDS: ASPIRIN 81 MG ECTAB PO SCH (20:38)
[2017-05-25] MEDS: ATORVASTATIN 40 MG TAB PO SCH (20:38)
[2017-05-26 05:37] LABS: BASO % 0.4 %; BASO ABS # 0.05 K/uL (0-0.2); EOS % 6.3 %; HEMATOCRIT 24.1 % (37-47); IG% 2.2 %; LYMPH % 18.7 %; LYMPH ABS # 2.17 K/uL (1.2-3.4); MEAN CORPUSCULAR HEMOGLOBIN 32.5 pg (25-34); MEAN CORPUSCULAR HGB CONC 31.5 g/dl (32-36); MEAN PLATELET VOLUME 9.4 fL (7.4-10.4); MONO % 6.4 %; PLATELET COUNT 110 K/uL (130-400); RED BLOOD COUNT 2.34 M/uL (4.2-5.4)
[2017-05-26 06:08] LABS: COMPLETE YES
[2017-05-26 06:30] LABS: BUN/CREATININE RATIO 13.6 (10-20); CALCIUM 7.9 mg/dl (8.5-10.1); CREATININE 5.13 mg/dl (0.60-1.20); POTASSIUM 4.7 mmol/L (3.5-5.1)
[2017-05-26 08:00] VITALS: O2SAT 99
[2017-05-26 08:06] VITALS: BP 143/70; PULSE 91; TEMP 36.9; O2SAT 98
[2017-05-26] MEDS: CEROVITE ADV FORMULA TAB PO SCH (08:33)
[2017-05-26] MEDS: CHOLECALCIFEROL 1000 INTER.UNIT TAB PO SCH (08:34)
[2017-05-26] MEDS: CARVEDILOL 12.5 MG TAB PO SCH (08:34)
[2017-05-26] MEDS: PANTOprazole SOD 40 MG TAB PO SCH (08:34)
[2017-05-26] MEDS: RASPBERRY SYRUP 5 ML UDP PO SCH (08:35)
[2017-05-26] MEDS: NYSTATIN POWDER 15GM BTL EXT SCH ×2 (08:35→21:51)
[2017-05-26] MEDS: LOTEPREDNOL ETABONATE 0.5% OPB SCH (08:36)
[2017-05-26] MEDS: VANCOMYCIN HCL 125 MG/2.5ML SOLN PO SCH (08:40)
[2017-05-26] MEDS: FEBUXOSTAT 40 MG TAB PO SCH (11:26)
--- NOTE | 2017-05-26 11:31 | Nephrology Progress Note ---
Nephrology Progress Note Date of Service May 26, 2017. Chief Complaint F/U for acute kidney injury, hyperkalemia, hypernatremia and metabolic acidosis. Subjective Mrs. Chase was seen and examined in her room this morning with her at bedside. She has been overall feeling better, looks like she is in better mood today, insert question appropriately. Renal function continues to improve creatinine 5.1, electrolyte acceptable. Has decent urine output, blood pressure stable. Review of Systems A complete review of systems was performed. Pertinent positives are noted above. All other systems are negative. Vital Signs Last 8 Hrs Date Time Temp Pulse Resp B/P (MAP) Pulse Ox O2 Delivery O2 Flow Rate FiO2 05/26/17 08:06 36.9 91 20 143/70 (94) 98 05/26/17 08:00 99 Nasal Cannula 1.0 Last Recorded Weight Weight (Kilograms): 43.300 Physical Exam GENERAL: Elderly female, AAA x 3, frail, ill-appearing, not in any distress. NECK: Supple, no JVD. RESPIRATORY: Normal breathing efforts, no accessory muscle use, clear to auscultation bilaterally, no wheezes or rales. CARDIOVASCULAR: S1, S2 normal, rate rhythm regular. EXTREMITY: No lower extremity edema NEURO: speech fluent. 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 Laboratory Results Past 24 Hours 05/26/17 05:25 Red Blood Count 2.34, Mean Corpuscular Volume 103.0, Mean Corpuscular Hemoglobin 32.5, Mean Corpuscular Hemoglobin Concent 31.5, Mean Platelet Volume 9.4, Neutrophils (%) (Auto) 66.0, Lymphocytes (%) (Auto) 18.7, Monocytes (%) ( Auto) 6.4, Eosinophils (%) (Auto) 6.3, Basophils (%) (Auto) 0.4, Neutrophils # ( Auto) 7.65, Lymphocytes # (Auto) 2.17, Monocytes # (Auto) 0.74, Eosinophils # ( Auto) 0.73, Basophils # (Auto) 0.05 05/26/17 05:25 Test 05/26/17 05:25 White Blood Count 11.60 K/uL (4.8-10.8) Red Blood Count 2.34 M/uL (4.2-5.4) Hemoglobin 7.6 g/dL (12.0-16.0) Hematocrit 24.1 % (37-47) Mean Corpuscular Volume 103.0 fL (80-100) Mean Corpuscular Hemoglobin 32.5 pg (25-34) Mean Corpuscular Hemoglobin Concent 31.5 g/dl (32-36) Platelet Count 110 K/uL (130-400) Mean Platelet Volume 9.4 fL (7.4-10.4) Neutrophils (%) (Auto) 66.0 % Lymphocytes (%) (Auto) 18.7 % Monocytes (%) (Auto) 6.4 % Eosinophils (%) (Auto) 6.3 % Basophils (%) (Auto) 0.4 % Neutrophils # (Auto) 7.65 K/uL (1.4-6.5) Lymphocytes # (Auto) 2.17 K/uL (1.2-3.4) Monocytes # (Auto) 0.74 K/uL (0.11-0.59) Eosinophils # (Auto) 0.73 K/uL (0-0.5) Basophils # (Auto) 0.05 K/uL (0-0.2) RDW Standard Deviation 53.1 fL (36.4-46.3) RDW Coefficient of Variation 14.3 % (11.5-14.5) Immature Granulocyte % (Auto) 2.2 % Immature Granulocyte # (Auto) 0.26 K/uL (0.00-0.02) Nucleated RBC Absolute Count (auto) 0.02 K/uL (0-0) Nucleated Red Blood Cells % 0.1 % Red Blood Cell Morphology Unremarkable Anion Gap 6.0 mmol/L (3-11) Est Creatinine Clear Calc Drug Dose 5.7 ml/min Estimated GFR () 8.4 Estimated GFR (Non- 7.2 BUN/Creatinine Ratio 13.6 (10-20) Calcium Level 7.9 mg/dl (8.5-10.1) Allergies Coded Allergies: Sulfa Antibiotics (Verified Allergy, Intermediate, BODY SWELLING,NAUSEA AND VOMITNG, 05/23/17) Penicillins (Verified Allergy, Unknown, Tolerates Primaxin, does NOT tolerate ZOSYN, 05/23/17) PER PCP RECORDS Medications Current Inpatient Medications Medications (Trade) Dose Ordered Sig/Helder Route Start Time Stop Time Status Last Admin Dose Admin Heparin Sodium (Porcine) (Heparin Sq 5000 Unit/0.5ml) 5,000 unit Q12H SQ 05/23/17 21:00 06/22/17 20:59 Future Hold Acetaminophen (Tylenol Tab) 650 mg Q4H PRN PO 05/23/17 16:30 06/22/17 16:29 Al Hydrox/Mg Hydrox/Simethicone (Maalox Max Susp) 15 ml Q4H PRN PO 05/23/17 16:30 06/22/17 16:29 Magnesium Hydroxide (Milk Of Magnesia Susp) 30 ml Q12H PRN PO 05/23/17 16:30 06/22/17 16:29 Ondansetron HCl (Zofran Inj) 4 mg Q6H PRN IV 05/23/17 16:30 06/22/17 16:29 Polyethylene (Miralax Powder Packet) 17 gm DAILY PRN PO 05/23/17 16:30 06/22/17 16:29 Ertapenem 500 mg/ Sodium Chloride 55 ml @ 100 mls/hr DAILY@2000 IV 05/23/17 20:00 05/28/17 19:59 05/25/17 20:37 100 MLS/HR Aspirin (Ecotrin Tab) 81 mg QPM PO 05/23/17 21:00 06/22/17 20:59 05/25/17 20:38 81 MG Atorvastatin Calcium (Lipitor Tab) 80 mg QPM PO 05/23/17 21:00 06/22/17 20:59 05/25/17 20:38 80 MG Carvedilol (Coreg Tab) 12.5 mg QAM PO 05/24/17 09:00 06/23/17 08:59 05/26/17 08:34 12.5 MG Cholecalciferol (Vitamin D Tab) 1,000 inter.unit DAILY PO 05/24/17 09:00 06/23/17 08:59 05/26/17 08:34 1,000 INTER.UNIT Clopidogrel Bisulfate (plAVix TAB) 75 mg QPM PO 05/23/17 21:00 06/22/17 20:59 05/25/17 20:38 75 MG Lorazepam (Ativan Tab) 0.5 mg Q6H PRN PO 05/23/17 16:30 06/22/17 16:29 Multivitamins/ Minerals (Multivitamin W/ Minerals Tab) 1 tab QAM PO 05/24/17 09:00 06/23/17 08:59 05/26/17 08:33 1 TAB Nystatin (Mycostatin Powder) 1 appln BID EXT 05/23/17 21:00 06/22/17 20:59 05/26/17 08:35 1 APPLN Ondansetron HCl (Zofran Odt) 4 mg Q6H PRN PO 05/23/17 16:30 06/22/17 16:29 Pantoprazole Sodium (Protonix Tab) 40 mg QAM PO 05/24/17 09:00 06/23/17 08:59 05/26/17 08:34 40 MG Vancomycin HCl (Vancomycin Oral Soln) 125 mg QAM PO 05/24/17 09:00 06/03/17 08:59 05/26/17 08:40 125 MG Febuxostat (Uloric) 40 mg DAILY@1200 PO 05/24/17 12:00 06/23/17 11:59 05/25/17 13:10 40 MG Raspberry (Raspberry Syrup 5ml Cup) 5 ml Taper QAM PO 05/24/17 09:00 07/08/17 08:59 05/26/17 08:35 5 ML Heparin Sodium (Porcine) (Heparin 10 Unit/ ml 5 ml Flush) 5 ml PRN PRN FLUSH 05/24/17 00:15 06/23/17 00:14 05/26/17 05:14 5 ML Loteprednol Etabonate (Lotemax 0.5%) 1 drops DAILY OPB 05/24/17 12:00 06/23/17 11:59 05/26/17 08:36 1 DROPS Impression Mrs. Johns is a 81-year-old female with multiple significant comorbidities including CHF with ejection fraction 20-25%, hypertension, advanced CKD, recurrent urinary tract infection, obstructive uropathy and recurrent history of acute kidney injury admitted with acute kidney injury, hyperkalemia, metabolic acidosis and urinary tract infection. She has been getting IV fluid and Invanz. Has chronic anemia with advanced CKD and secondary hyperparathyroidism. Has history of stage 5 chronic kidney disease,Baseline creatinine has been 3.0-3.5, history of bilateral hydronephrosis and recurrent acute kidney injury. Previously had bilateral ureteral stent which was removed in November 2016. Patient and family previously decided not to consider renal replacement therapy and being managed by conservative approach only. However as per Dr. Cortez since note mentioned he might consider dialysis if that is unavoidable in the setting of acute kidney injury. Renal ultrasound was ordered stat but still pending. Acute kidney injury seems to be hemodynamically mediated with relatively low blood pressure and volume depletion. However with her baseline stage 5 CKD is quite possible that kidney function will continue to decline and metabolic abnormality may not get corrected with conservative approach only. If hyperkalemia and metabolic acidosis does not improve with sodium bicarbonate and IV fluid and if kidney function continues to decline we may have to make a decision by tomorrow morning. And if patient and her decided to consider dialysis will have to get vascular surgery involved to put a tunnel catheter to start urgent dialysis. However with her baseline extremely frail condition, dialysis would not provide her with any quality of life and best would be to continue with conservative approach and if renal function continues to decline, resume discussion about hospice/palliative care. Renal ultrasound with no significant postrenal obstruction. Pts was inquiring about use of ketosteril. Recommendations - renal function continues to improve, electrolyte, volume status and urine output acceptable. Hopefully she can be discharged home pretty soon --encourage free water intake --monitor renal function with daily renal panel --Dose medications for GFR less than 10 -- avoid nephrotoxins medications --Epoetin 32011 units subcu x1 dose given on 05/24/2017 Will follow
--- NOTE | 2017-05-26 14:47 | Progress Note ---
Subjective Date of Service: May 26, 2017. Subjective Pt evaluation today including: conversation w/ patient, conversation w/ family ( at bedside), physical exam, chart review, lab review, review of studies , review of inpatient medication list Pain: denies cp, abd pain PO Intake: modestly improved today Voiding: henriquez catheter in place no issues overnight patient states she "feels better" and her concurs "it is a much better day than yesterday" she offers no specific complaints they are both hoping for hospital discharge tomorrow Problem List Medical Problems: (1) Acute kidney failure Status: Acute (2) Acute on chronic kidney failure Status: Acute (3) Acute renal failure Status: Acute (4) Acute renal failure Status: Acute (5) Altered mental status Status: Acute (6) Altered mental status Status: Acute (7) ARF (acute renal failure) Status: Acute (8) CRD (chronic renal disease) Status: Acute (9) Dehydration Status: Acute (10) Dehydration Status: Acute (11) Diverticulitis Status: Acute (12) Fall Status: Acute (13) Fever Status: Acute (14) Hyperkalemia Status: Acute (15) Hyperkalemia Status: Acute (16) Hyperkalemia Status: Acute (17) Hypomagnesemia Status: Acute (18) PICC (peripherally inserted central catheter) in place Status: Acute (19) Pneumonia Status: Acute (20) Renal failure Status: Acute (21) Renal insufficiency Status: Acute (22) Renal insufficiency Status: Acute (23) Sepsis Status: Acute (24) Sepsis Status: Acute (25) Uremia Status: Acute (26) UTI (urinary tract infection) Status: Acute (27) UTI (urinary tract infection) Status: Acute (28) UTI (urinary tract infection) Status: Acute (29) Weakness Status: Acute (30) Weakness Status: Acute (31) Weakness Status: Acute (32) Weakness Status: Acute (33) Weakness Status: Acute Review of Systems Constitutional: No fever Respiratory: No cough, No shortness of breath, No dyspnea at rest Cardiac: No chest pain Abdomen: No pain, No diarrhea Objective Vital Signs Date Time Temp Pulse Resp B/P (MAP) Pulse Ox O2 Delivery O2 Flow Rate FiO2 05/26/17 08:06 36.9 91 20 143/70 (94) 98 05/26/17 08:00 99 Nasal Cannula 1.0 12/10/17 00:00 Nasal Cannula 1.0 05/25/17 23:41 37.1 88 20 122/67 (85) 100 1.0 05/25/17 21:30 99 Nasal Cannula 1.0 05/25/17 16:00 99 Nasal Cannula 1.0 05/25/17 15:36 37.1 85 18 127/76 (93) 99 Nasal Cannula 1.0 Physical Exam General Appearance: no apparent distress, + cachetic, + thin, + pertinent finding (chronically ill appearing) ENT: pharynx normal Neck: no JVD Respiratory/Chest: lungs clear, no respiratory distress, no accessory muscle use Cardiovascular: regular rate, rhythm, no gallop, no murmur Abdomen: normal bowel sounds, non tender, soft, no organomegaly Extremities: + pedal edema (trace b/l ) Neurologic/Psychiatric: alert Skin: + pertinent finding (PICC line, RUE - clean) Laboratory Results Last 24 Hours Test 05/26/17 05:25 White Blood Count 11.60 K/uL Red Blood Count 2.34 M/uL Hemoglobin 7.6 g/dL Hematocrit 24.1 % Mean Corpuscular Volume 103.0 fL Mean Corpuscular Hemoglobin 32.5 pg Mean Corpuscular Hemoglobin Concent 31.5 g/dl Platelet Count 110 K/uL Mean Platelet Volume 9.4 fL Neutrophils (%) (Auto) 66.0 % Lymphocytes (%) (Auto) 18.7 % Monocytes (%) (Auto) 6.4 % Eosinophils (%) (Auto) 6.3 % Basophils (%) (Auto) 0.4 % Neutrophils # (Auto) 7.65 K/uL Lymphocytes # (Auto) 2.17 K/uL Monocytes # (Auto) 0.74 K/uL Eosinophils # (Auto) 0.73 K/uL Basophils # (Auto) 0.05 K/uL RDW Standard Deviation 53.1 fL RDW Coefficient of Variation 14.3 % Immature Granulocyte % (Auto) 2.2 % Immature Granulocyte # (Auto) 0.26 K/uL Nucleated RBC Absolute Count (auto) 0.02 K/uL Nucleated Red Blood Cells % 0.1 % Red Blood Cell Morphology Unremarkable Sodium Level 141 mmol/L Potassium Level 4.7 mmol/L Chloride Level 111 mmol/L Carbon Dioxide Level 24 mmol/L Anion Gap 6.0 mmol/L Blood Urea Nitrogen 70 mg/dl Creatinine 5.13 mg/dl Est Creatinine Clear Calc Drug Dose 5.7 ml/min Estimated GFR () 8.4 Estimated GFR (Non- 7.2 BUN/Creatinine Ratio 13.6 Random Glucose 94 mg/dl Calcium Level 7.9 mg/dl Assessment and Plan 81yo female - 1. acute renal failure in the setting of CKD stage 5 - ARF improving albeit slowly/modestly day to day. Acid-base status acceptable. Potassium now wnl. Henriquez remains; IVF have been d/c. Nephrology following and recs appreciated. Attempts at palliative care discussions in the past have not been successful despite her ongoing general decline and now bed-bound status. It is uncertain if she and/or her would desire HD moving forward if she did not recover renal function. 2. ?UTI - urine cx negative; stop ertapenem. 3. chronic systolic/diastolic CHF - compensated. 4. chronic hypoxic respiratory failure - compensated, stable. 5. Anemia of chronic disease - 2nd to #1 above. Hb 7.6 today; defer on PRBCs. Receiving epogen via nephrology. 6. Hypertension - controlled. 7. CAD s/p LA - no ischemic symptoms at this time. 8. 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 Pt's asked about a supplement available from [facility] that apparently can borja off progression of renal failure. I told him I am unaware of such agent and not familiar with it. He will speak to Dr. Corral in the near future about the supplement. hopefully d/c home tomorrow Discharge planning: home
[2017-05-26] MEDS: ONDANSETRON 4MG OD TAB PO PRN ×2 (15:59→22:08)
[2017-05-26 16:00] VITALS: BP 129/75; PULSE 91; TEMP 36.8; O2SAT 99
[2017-05-26] MEDS: ASPIRIN 81 MG ECTAB PO SCH (21:50)
[2017-05-26] MEDS: ATORVASTATIN 40 MG TAB PO SCH (21:50)
[2017-05-26] MEDS: CLOPIDOGREL BISULFATE 75 MG TAB PO SCH (21:51)
[2017-05-27 00:15] VITALS: O2SAT 99
[2017-05-27 00:18] VITALS: BP 123/67; PULSE 91; TEMP 36.6; O2SAT 99
[2017-05-27 07:04] VITALS: BP 114/68; PULSE 85; TEMP 36.9; O2SAT 99
[2017-05-27 07:16] LABS: HEMATOCRIT 26.6 % (37-47); MEAN CELL VOLUME 103.5 fL (80-100); MEAN CORPUSCULAR HEMOGLOBIN 31.9 pg (25-34); MEAN CORPUSCULAR HGB CONC 30.8 g/dl (32-36); MEAN PLATELET VOLUME 9.4 fL (7.4-10.4); PLATELET COUNT 109 K/uL (130-400); RED BLOOD COUNT 2.57 M/uL (4.2-5.4); WHITE BLOOD COUNT 11.62 K/uL (4.8-10.8)
[2017-05-27 07:55] LABS: BUN/CREATININE RATIO 13.2 (10-20); CALCIUM 8.2 mg/dl (8.5-10.1); CREATININE 5.19 mg/dl (0.60-1.20); POTASSIUM 4.8 mmol/L (3.5-5.1)
[2017-05-27] MEDS: CEROVITE ADV FORMULA TAB PO SCH (08:06)
[2017-05-27] MEDS: NYSTATIN POWDER 15GM BTL EXT SCH (08:06)
[2017-05-27] MEDS: PANTOprazole SOD 40 MG TAB PO SCH (08:06)
[2017-05-27] MEDS: CARVEDILOL 12.5 MG TAB PO SCH (08:06)
[2017-05-27] MEDS: CHOLECALCIFEROL 1000 INTER.UNIT TAB PO SCH (08:07)
[2017-05-27] MEDS: LOTEPREDNOL ETABONATE 0.5% OPB SCH (08:07)
[2017-05-27] MEDS: RASPBERRY SYRUP 5 ML UDP PO SCH (08:08)
[2017-05-27] MEDS: VANCOMYCIN HCL 125 MG/2.5ML SOLN PO SCH (08:10)
[2017-05-27 08:15] LABS: BASO % 0.3 %; BASO ABS # 0.03 K/uL (0-0.2); COMPLETE YES; EOS % 4.8 %; IG% 1.7 %; LYMPH % 17.5 %; LYMPH ABS # 2.03 K/uL (1.2-3.4); MONO % 6.5 %; NEUT % 69.2 %; TEAR DROP CELLS 1+
--- NOTE | 2017-05-27 10:02 | Nephrology Progress Note ---
Nephrology Progress Note Date of Service May 27, 2017. Chief Complaint Evaluation of acute on CKD Subjective Mrs. Chase was seen & examined in her hospital room this morning. Her was present at bedside. Mrs. Chase would awaken to voice and speak her name but was otherwise nonconversant. She appears much weaker and more frail than when I last saw her. Review of Systems Patient was unable to provide a ROS Vital Signs Last 8 Hrs Date Time Temp Pulse Resp B/P (MAP) Pulse Ox O2 Delivery O2 Flow Rate FiO2 05/27/17 08:00 Nasal Cannula 2.0 05/27/17 07:04 36.9 85 16 114/68 (83) 99 Nasal Cannula 2.0 Last Recorded Weight Weight (Kilograms): 41.100 Physical Exam General Appearance: + pertinent finding (weak. Notable weight loss.) Head: atraumatic (temporal muscle wasting) Eyes: PERRL, EOMI Neck: no adenopathy Respiratory/Chest: lungs clear, no respiratory distress Cardiovascular: regular rate, rhythm Abdomen/GI: normal bowel sounds, non tender, soft Genitourinary - Female: + pertinent finding (henriquez catheter in place draining clear yellow urine) Extremities/Musculoskelatal: no pedal edema, + pertinent finding Neurologic/Psych: + pertinent finding (awakens to voice. Speaks name. Appears weak) Family History Diabetes mellitus Other cardiovascular diseases Stroke Social History Smoking Status: Never smoker Drug Use: none Marital Status: Housing Status: lives with significant other 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 Laboratory Results Past 24 Hours 05/27/17 06:39 Red Blood Count 2.57, Mean Corpuscular Volume 103.5, Mean Corpuscular Hemoglobin 31.9, Mean Corpuscular Hemoglobin Concent 30.8, Mean Platelet Volume 9.4, Neutrophils (%) (Auto) 69.2, Lymphocytes (%) (Auto) 17.5, Monocytes (%) ( Auto) 6.5, Eosinophils (%) (Auto) 4.8, Basophils (%) (Auto) 0.3, Neutrophils # ( Auto) 8.05, Lymphocytes # (Auto) 2.03, Monocytes # (Auto) 0.75, Eosinophils # ( Auto) 0.56, Basophils # (Auto) 0.03 05/27/17 06:39 Test 05/27/17 06:39 White Blood Count 11.62 K/uL (4.8-10.8) Red Blood Count 2.57 M/uL (4.2-5.4) Hemoglobin 8.2 g/dL (12.0-16.0) Hematocrit 26.6 % (37-47) Mean Corpuscular Volume 103.5 fL (80-100) Mean Corpuscular Hemoglobin 31.9 pg (25-34) Mean Corpuscular Hemoglobin Concent 30.8 g/dl (32-36) Platelet Count 109 K/uL (130-400) Mean Platelet Volume 9.4 fL (7.4-10.4) Neutrophils (%) (Auto) 69.2 % Lymphocytes (%) (Auto) 17.5 % Monocytes (%) (Auto) 6.5 % Eosinophils (%) (Auto) 4.8 % Basophils (%) (Auto) 0.3 % Neutrophils # (Auto) 8.05 K/uL (1.4-6.5) Lymphocytes # (Auto) 2.03 K/uL (1.2-3.4) Monocytes # (Auto) 0.75 K/uL (0.11-0.59) Eosinophils # (Auto) 0.56 K/uL (0-0.5) Basophils # (Auto) 0.03 K/uL (0-0.2) RDW Standard Deviation 53.1 fL (36.4-46.3) RDW Coefficient of Variation 14.2 % (11.5-14.5) Immature Granulocyte % (Auto) 1.7 % Immature Granulocyte # (Auto) 0.20 K/uL (0.00-0.02) Nucleated RBC Absolute Count (auto) 0.04 K/uL (0-0) Nucleated Red Blood Cells % 0.3 % Tear Drop Cells 1+ Anion Gap 9.0 mmol/L (3-11) Est Creatinine Clear Calc Drug Dose 5.3 ml/min Estimated GFR () 8.2 Estimated GFR (Non- 7.1 BUN/Creatinine Ratio 13.2 (10-20) Calcium Level 8.2 mg/dl (8.5-10.1) Allergies Coded Allergies: Sulfa Antibiotics (Verified Allergy, Intermediate, BODY SWELLING,NAUSEA AND VOMITNG, 05/23/17) Penicillins (Verified Allergy, Unknown, Tolerates Primaxin, does NOT tolerate ZOSYN, 05/23/17) PER PCP RECORDS Medications Current Inpatient Medications Medications (Trade) Dose Ordered Sig/Helder Route Start Time Stop Time Status Last Admin Dose Admin Heparin Sodium (Porcine) (Heparin Sq 5000 Unit/0.5ml) 5,000 unit Q12H SQ 05/23/17 21:00 06/22/17 20:59 Future Hold Acetaminophen (Tylenol Tab) 650 mg Q4H PRN PO 05/23/17 16:30 06/22/17 16:29 Al Hydrox/Mg Hydrox/Simethicone (Maalox Max Susp) 15 ml Q4H PRN PO 05/23/17 16:30 06/22/17 16:29 Magnesium Hydroxide (Milk Of Magnesia Susp) 30 ml Q12H PRN PO 05/23/17 16:30 06/22/17 16:29 Ondansetron HCl (Zofran Inj) 4 mg Q6H PRN IV 05/23/17 16:30 06/22/17 16:29 Polyethylene (Miralax Powder Packet) 17 gm DAILY PRN PO 05/23/17 16:30 06/22/17 16:29 Aspirin (Ecotrin Tab) 81 mg QPM PO 05/23/17 21:00 06/22/17 20:59 05/26/17 21:50 81 MG Atorvastatin Calcium (Lipitor Tab) 80 mg QPM PO 05/23/17 21:00 06/22/17 20:59 05/26/17 21:50 80 MG Carvedilol (Coreg Tab) 12.5 mg QAM PO 05/24/17 09:00 06/23/17 08:59 05/27/17 08:06 12.5 MG Cholecalciferol (Vitamin D Tab) 1,000 inter.unit DAILY PO 05/24/17 09:00 06/23/17 08:59 05/27/17 08:07 1,000 INTER.UNIT Clopidogrel Bisulfate (plAVix TAB) 75 mg QPM PO 05/23/17 21:00 06/22/17 20:59 05/26/17 21:51 75 MG Lorazepam (Ativan Tab) 0.5 mg Q6H PRN PO 05/23/17 16:30 06/22/17 16:29 Multivitamins/ Minerals (Multivitamin W/ Minerals Tab) 1 tab QAM PO 05/24/17 09:00 1/7/18 08:59 05/27/17 08:06 1 TAB Nystatin (Mycostatin Powder) 1 appln BID EXT 05/23/17 21:00 06/22/17 20:59 05/27/17 08:06 1 APPLN Ondansetron HCl (Zofran Odt) 4 mg Q6H PRN PO 05/23/17 16:30 06/22/17 16:29 05/26/17 22:08 4 MG Pantoprazole Sodium (Protonix Tab) 40 mg QAM PO 05/24/17 09:00 06/23/17 08:59 05/27/17 08:06 40 MG Vancomycin HCl (Vancomycin Oral Soln) 125 mg QAM PO 05/24/17 09:00 06/03/17 08:59 05/27/17 08:10 125 MG Febuxostat (Uloric) 40 mg DAILY@1200 PO 05/24/17 12:00 06/23/17 11:59 05/26/17 11:26 40 MG Raspberry (Raspberry Syrup 5ml Cup) 5 ml Taper QAM PO 05/24/17 09:00 07/08/17 08:59 05/27/17 08:08 5 ML Heparin Sodium (Porcine) (Heparin 10 Unit/ ml 5 ml Flush) 5 ml PRN PRN FLUSH 05/24/17 00:15 06/23/17 00:14 05/27/17 05:23 5 ML Loteprednol Etabonate (Lotemax 0.5%) 1 drops DAILY OPB 05/24/17 12:00 06/23/17 11:59 05/27/17 08:07 1 DROPS Impression Mrs. Johns is a 81-year-old female with multiple significant comorbidities including CHF with ejection fraction 20-25%, hypertension, advanced CKD, recurrent urinary tract infection, obstructive uropathy and recurrent history of acute kidney injury admitted with acute kidney injury, hyperkalemia, metabolic acidosis and urinary tract infection. She has been getting IV fluid and Invanz. Has chronic anemia with advanced CKD and secondary hyperparathyroidism. Has history of stage 5 chronic kidney disease,Baseline creatinine has been 3.0-3.5, history of bilateral hydronephrosis and recurrent acute kidney injury. Previously had bilateral ureteral stent which was removed in November 2016. Patient and family previously decided not to consider renal replacement therapy and being managed by conservative approach only. Renal ultrasound with no significant postrenal obstruction. Recommendations Mr. Chase and I met privately to discuss his 's care. I indicated that I have known Tiana for several years and her health appears to be declining. Although her creatinine has come down to 5.1 she still has kidney failure and qualifies for HD. Indications/benefits/risks of HD discussed in detail. Patient is essentially bedridden. I explained that HD will not provide quality of life and likely will shorten it due to repeated hospitalization for vascular access and potential complications. Mr. Chase indicated that he is not able to transport his for 3 x / week dialysis and she does not want aggressive measures. Goals of medical care were reviewed. Mr. Chase wishes to get his home and focus on her comfort. He recognizes a need for assistance caring for her at home and to give himself occasional respite. He is agreeable to setting up home hospice and completing a POLST form to avoid future resuscitation, ICU intervention or HD. He requests [facility] ( Fadumo RN) for hospice care if possible. I have placed an order for social service consultation to set up home hospice and discussed w/ technical staff assistant and the primary service this morning. One hour visit provided to the patient today. This was necessary to discuss patient's prognosis, consult social media specialist and discuss plan of care with technical staff assistant and primary service. Over 50% of time provided was spent on education and coordination of care.
[2017-05-27] MEDS: FEBUXOSTAT 40 MG TAB PO SCH (12:11)
[2017-05-27 13:22] VITALS: BP 114/68; PULSE 85; TEMP 36.9; O2SAT 99
[2017-05-27] MEDS ORDERED: MRPL PO (13:23)
--- NOTE | 2017-05-27 13:27 | Discharge Instructions ---
Discharge Instructions Date of Service May 27, 2017. Admission Reason for Admission: Acute On Chronic Renal Failure, Hyperkalemia Discharge Discharge Diagnosis / Problem: Acute on Chronic Renal Failure, Hyperkalemia Discharge Goals Goal(s): Decrease discomfort Activity Recommendations Activity Limitations: resume your previous activity Exercise/Sports Limitations: as tolerated . Instructions / Follow-Up Instructions / Follow-Up Please follow up with nephrology in the next couple of weeks. Hospice has been arranged for you. If you have additional needs, please see your primary care provider. Current Hospital Diet Patient's current hospital diet: Renal Diet Discharge Diet Recommended Diet: Renal Diet Procedures Procedures Performed: Renal US CXR Pending Studies Studies pending at discharge: no Medical Emergencies . Who to Call and When: Medical Emergencies: If at any time you feel your situation is an emergency, please call 911 immediately. . Non-Emergent Contact Non-Emergency issues call your: Primary Care Provider . . "Provider Documentation" section prepared by Marva Ortiz. . VTE Core Measure Inpt VTE Proph given/why not?: Treatment not indicated
--- NOTE | 2017-05-27 15:37 | Discharge Summary ---
Discharge Summary Date of Service May 27, 2017. Discharge Summary Admission Date: May 23, 2017 at 16:40 Discharge Date: May 27, 2017 Discharge Disposition: Home with services (Hospice ) Principal Diagnosis: Acute Renal Failure & hyperkalemia Problems/Secondary Diagnoses: Pmhx chronic kidney disease stage 5, frequent urinary tract infections, anemia of CKD, h/o C. diff colitis, hypertension, chronic systolic/diastolic CHF, cardiac catheterization, CAD, diabetic, ischemic cardiomyopathy, h/o pneumonia, h/o sepsis, h/o ureteral stents Immunizations: Have You Had Influenza Vaccine: Yes Influenza Vaccine Date: Mar 17, 2010 History of Tetanus Vaccine?: No History of Pneumococcal: No Pneumococcal Date: Jun 06, 2011 History of Hepatitis B Vaccine: No Procedures: RENAL ULTRASOUND CLINICAL HISTORY: Acute renal failure. COMPARISON STUDY: Renal ultrasound October 12, [address] of the abdomen and pelvis December 02, 2016. TECHNIQUE: Sonography of the kidneys and the urinary bladder was performed. FINDINGS: This exam is compromised by suboptimal penetration. Both kidneys are markedly atrophic and echogenic. The right measures 7.8 x 4 x 4.1 cm and the left measures 6.6 x 4.2 x 3.6 cm. There is no right hydronephrosis. There is possible mild left collecting system dilatation without definite hydronephrosis. IMPRESSION: 1. Study compromised by suboptimal penetration. No right hydronephrosis. Possible mild left collecting system dilatation without definite hydronephrosis. 2. Marked bilateral renal atrophy. SINGLE VIEW CHEST CLINICAL HISTORY: Generalized weakness. FINDINGS: An AP, portable, upright chest radiograph is compared to study dated 03/13/2017. The examination is degraded by portable technique, apical lordotic positioning, and patient rotation. A right PICC line is unchanged in position. A single lead cardiac AICD is also unchanged and partially obscures the left upper chest. The heart is enlarged and there is atherosclerotic calcification of the thoracic aorta. The pulmonary vasculature is noncongested. Trace pleural effusions are suspected. There is left basilar atelectasis. No pneumothorax is seen. The skeletal structures are osteopenic. The bony thorax is grossly intact. Cholecystectomy clips are seen in the right upper quadrant. IMPRESSION: 1. Cardiomegaly and ICD. There is no radiographic evidence of congestive failure. 2. Trace pleural effusions are identified. Consultations: nephrology - Thai Corral MD Impression Mrs. Johns is a 81-year-old female with multiple significant comorbidities including CHF with ejection fraction 20-25%, hypertension, advanced CKD, recurrent urinary tract infection, obstructive uropathy and recurrent history of acute kidney injury admitted with acute kidney injury, hyperkalemia, metabolic acidosis and urinary tract infection. She has been getting IV fluid and Invanz. Has chronic anemia with advanced CKD and secondary hyperparathyroidism. Has history of stage 5 chronic kidney disease,Baseline creatinine has been 3.0-3.5, history of bilateral hydronephrosis and recurrent acute kidney injury. Previously had bilateral ureteral stent which was removed in November 2016. Patient and family previously decided not to consider renal replacement therapy and being managed by conservative approach only. Renal ultrasound with no significant postrenal obstruction. Recommendations Mr. Chase and I met privately to discuss his 's care. I indicated that I have known Tiana for several years and her health appears to be declining. Although her creatinine has come down to 5.1 she still has kidney failure and qualifies for HD. Indications/benefits/risks of HD discussed in detail. Patient is essentially bedridden. I explained that HD will not provide quality of life and likely will shorten it due to repeated hospitalization for vascular access and potential complications. Mr. Chase indicated that he is not able to transport his for 3 x / week dialysis and she does not want aggressive measures. Goals of medical care were reviewed. Mr. Chase wishes to get his home and focus on her comfort. He recognizes a need for assistance caring for her at home and to give himself occasional respite. He is agreeable to setting up home hospice and completing a POLST form to avoid future resuscitation, ICU intervention or HD. He requests [facility] ( [facility]) for hospice care if possible. I have placed an order for social service consultation to set up home hospice and discussed w/ staff certified nurse midwife and the primary service this morning. Medication Reconciliation New Medications: Morphine Sulfate (Morphine Sulfate) 20 Mg/1 Ml Soln 10 MG PO Q3H for pain, air hunger for 5 Days, #40 DOSE Continued Medications: Aspirin (Aspirin) 81 Mg Tab 81 MG PO QPM Atorvastatin (Lipitor) 80 Mg Tab 80 MG PO QPM Carvedilol (Coreg) 12.5 Mg Tab 12.5 MG PO QAM, TAB Cholecalciferol (Vitamin D3) 1,000 Unit Tab 1 TAB PO DAILY for 90 Days, #90 TAB 3 Refills Clopidogrel Bisulfate (Clopidogrel) 75 Mg Tab 75 MG PO QPM Coconut Oil (Bulk) (Coconut Oil) 1 Oil Oil 1 CAP PO HS Cranberry (Vaccinium Macrocarp (Cranberry) 125 Mg Tab Unknown Dose PO TID Febuxostat (Uloric) 40 Mg Tab 40 MG PO NOON TAKE THIS MEDICATION DAILY WITH LUNCH Lorazepam (Ativan) 0.5 Mg Tab 0.5 MG PO Q6H PRN for Anxiety, TAB Loteprednol Etabonate (Lotemax) 0.5 % Gel 1 DROP OPB QAM Multiple Vitamins W/ Minerals (Centrum Silver Ultra Wome) 1 Tab Tab 1 TAB PO QAM Nystatin (Nystop) 45 Appln/15 Gm Powd 1 DOSE TOP BID Ondasetron Odt (Zofran Odt) 4 Mg Tab 4 MG PO Q6H PRN for Nausea Pantoprazole (Pantoprazole Sodium) 40 Mg Tab 40 MG PO QAM Probiotic Product (Probiotic) 1 Cap Cap 1 TAB PO QPM Sodium Bicarbonate (Sodium Bicarbonate) 650 Mg Tab 1 TAB PO QAM Vancomycin Hcl (Vancomycin) 125 Mg Cap 125 MG PO QAM Discharge Exam ROS Constitutional: no chills, aches, sweats or fever Respiratory: no sob,cough, sputum, or wheezing Cardiac: no chest pain, palpitations, edema, orthopnea or lightheadedness GI: no abdominal pain, nausea, vomiting, diarrhea or constipation : no dysuria or hesitancy Extremities: generalized weakness Skin: no rash PE General: no distress Eyes: normal inspection, PERLL Respiratory: chest non tender, clear to auscultation, normal breath sounds, no respiratory distress, no accessory muscle use Cardiac: regular rate and rhythm, no rub or gallop, no murmur, no edema, no jvd GI/: active bowel sounds, no abd pain or tenderness, soft, non distended, Henriquez catheter intact Extremities: normal range of motion, normal strength, non tender Neuro/Psych: drowsy Skin: normal color, dry Hospital Course The patient reported to the hospital Emergency Department because of worsening BUN and creatinine and hyperkalemia. In the Emergency Room, potassium was up to 6.5, creatinine was up to 6.18. Acute renal failure in the setting of CKD stage 5 - ARF improved to Creatinine of 5.19 Acid-base status acceptable. Potassium now wnl. Henriquez remains for discharge Nephrology consulted - the patient and her were not agreeable to dialysis and understand that her renal disease is endstage. Patient and discussed with nephrology concerning hospice care and they agreed to it. They did not want to discuss goals of care with the hospital Palliative team. They will have home hospice at discharge. POLST completed - patient continues to be a full code UTI - u/a appeared dirty and there was concern for UTI and with patient's history of resistant Klebsiella, Ertapenem given but culture did not end up growing anything so abx were d/c'd after three days. Chronic systolic/diastolic CHF - compensated. Chronic hypoxic respiratory failure - compensated, stable. Anemia of chronic disease - 2nd to #1 above. Hb 8.2 upon discharge. Receiving epogen via nephrology. Hypertension - controlled. 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 Attending Attestation & Discharge note: Pt seen/examined, chart reviewed, care plan d/w PILLO Ortiz. I agree w/ the cox components of her documentation. 81yo female - well known to the [facility] hospitalist team due to numerous admits for UTI and acute/chronic renal failure - who presented with failure to thrive and simply not feeling well. At presentation noted to have marked elevation in creatinine to 6.2 and potassium of nearly 7. She was given the customary treatments for her hyperkalemia with resolution of such. IVF were given for the acute renal failure as it was thought to be due to volume depletion. After hydration her creatinine only improved to 5.[address] Corral, her primary biomedical field service engineer, had a lengthy discussion with the patient & her . In light of her failure to thrive, declining health status, & poor candidacy for dialysis - hospice was strongly recommended, and her was agreeable to such at discharge. Thus, home hospice services were arranged by case management. POLST form was completed; however, the patient and her have opted for level 1 full code status at time of discharge. This will need to be re- addressed after discharge by the hospice agency. Discharge exam: gen - NAD, chronically ill-appearing neck - no JVD mouth - MMM, no JVD heart - RRR, s1, s2 lungs - CTA b/l, decreased BS bases abd - soft, NT ext - no edema, right arm PICC clean Of note - the patient was discharged to home with henriquez catheter in place. Saul Ward MD Total Time Spent: Greater than 30 minutes This includes examination of the patient, discharge planning, medication reconciliation, and communication with other providers. Discharge Instructions Please refer to the electronic Patient Visit Report (Discharge Instructions) for additional information. Follow-Up Family prefers to make their own appointments - they should follow with nephrology in the next couple of weeks Additional Copies To Thai Corral M.D.; Jan Cervantes M.D.
== END 2017-05-27 15:24 | disposition hospice, home (50) | DRG 683 ==
LOC: EDBD 12:39 → C.EDC 12:40 → C.MSICU 16:40 → EDBEDREQ 17:25 → ENRESERV 17:43 → C.MS2W 05-24 12:51
PROVIDERS: ADMIT Hospitalist; ATTEND Internal Medicine
DX: N17.9 Acute kidney failure, unspecified (principal); I13.2 Hypertensive heart and chronic kidney disease with heart failure and with stage 5 chronic kidney disease, or end stage renal disease; I50.42 Chronic combined systolic (congestive) and diastolic (congestive) heart failure; Z51.5 Encounter for palliative care; J96.10 Chronic respiratory failure, unspecified whether with hypoxia or hypercapnia; E87.2 Acidosis; N18.5 Chronic kidney disease, stage 5; E11.21 Type 2 diabetes mellitus with diabetic nephropathy; I25.5 Ischemic cardiomyopathy; Z88.0 Allergy status to penicillin; E87.5 Hyperkalemia; Z95.810 Presence of automatic (implantable) cardiac defibrillator; I34.0 Nonrheumatic mitral (valve) insufficiency; N39.498 Other specified urinary incontinence; R15.1 Fecal smearing; I25.10 Atherosclerotic heart disease of native coronary artery without angina pectoris; Z88.2 Allergy status to sulfonamides; Z83.3 Family history of diabetes mellitus; D64.9 Anemia, unspecified; E86.0 Dehydration; D69.6 Thrombocytopenia, unspecified; E83.42 Hypomagnesemia; N25.81 Secondary hyperparathyroidism of renal origin; Z79.2 Long term (current) use of antibiotics; Z87.440 Personal history of urinary (tract) infections

== ENCOUNTER → 2017-06-11 | Outpatient (CLI) | payer MEDICARE ==
[~2017-06-11] MED LIST changes: +MRPL PO
== END | disposition home or self-care (01) ==
LOC: C.LABSPEC 09:44
PROVIDERS: ATTEND Internal Medicine Nephrology
DX: I12.9 Hypertensive chronic kidney disease with stage 1 through stage 4 chronic kidney disease, or unspecified chronic kidney disease (principal); N18.4 Chronic kidney disease, stage 4 (severe); R60.9 Edema, unspecified; R80.9 Proteinuria, unspecified; E55.9 Vitamin D deficiency, unspecified

== ENCOUNTER → 2017-06-24 | Outpatient (CLI) | payer MEDICARE | END | disposition home or self-care (01) | LOC: C.LABSPEC 17:31 | PROVIDERS: ATTEND Internal Medicine Infectious Disease | DX: N39.0 Urinary tract infection, site not specified (principal) ==

== ENCOUNTER → 2017-07-01 | Outpatient (CLI) | payer MEDICARE | END | disposition home or self-care (01) | LOC: C.LAB1850 09:27 | PROVIDERS: ATTEND Internal Medicine Infectious Disease | DX: N39.0 Urinary tract infection, site not specified (principal) ==